=== PATIENT | male | born 1950 | race American Indian/Alaskan Native ===

== ENCOUNTER 2016-05-13 11:52 | Inpatient (IN) | payer OTHER ==
[2016-05-13 12:07] VITALS: BMI 18.8
[2016-05-13 12:38] LABS: ADD MANUAL DIFF? NO; BASO # 0.02 K/mm3 (0.0-2.0); BASO % 0.2 % (0.0-3.0); EOS % 0.3 % (1.5-5.0); GRAN # 6.68 (1.4-6.5); GRAN % 74.9 % (50.0-68.0); LYMPH # 1.2 (1.2-3.4); LYMPH % 13.7 % (22.0-35.0); MEAN CELL VOLUME 80.8 fL (80.0-105.0); MEAN CORPUSCULAR HEMOGLOBIN 27.3 pg (25.0-35.0); MEAN CORPUSCULAR HGB CONC 33.7 g/dl (31.0-37.0); MONO % 10.9 % (1.0-6.0); PLATELET COUNT 156 10^3/uL (120.0-450.0); RED CELL DISTRIBUTION WIDTH 14.9 % (11.5-14.5); WHITE BLOOD COUNT 8.9 10^3/ul (4.5-11.0)
[2016-05-13 12:44] LABS: INR 1.14 (0.93-1.08); PARTIAL THROMBOPLASTIN TIME 30.5 Seconds (23.7-30.8)
[2016-05-13 12:47] LABS: ALB/GLOB RATIO 0.8 (1.1-1.8); ALKALINE PHOSPHATASE 120 U/L (38-133); ALT/SGPT 22 U/L (7-56); AST/SGOT 48 U/L (15-59); BILIRUBIN,TOTAL 1.7 mg/dL (0.2-1.3); BLOOD UREA NITROGEN 12 mg/dL (7-21); CARBON DIOXIDE 30 mmol/L (21-33); CHLORIDE 99 mmol/L (98-107); GFR AFRICAN-AMERICAN > 60; GLUCOSE,RANDOM 134 mg/dL (70-110); POTASSIUM 3.9 mmol/L (3.6-5.0); SODIUM 143 mmol/L (132-148); TOTAL PROTEIN 9.3 g/dL (5.8-8.3)
[2016-05-13 13:00] LABS: TROPONIN I < 0.01 ng/mL
--- NOTE | 2016-05-13 13:14 | ED PDOC ---
Arrival/HPI <Tre Bazan Jr. - Last Filed: 05/13/16 17:58> - General Historian: Patient EM Caveat: Other (hx of CVA with poor speech ) - History of Present Illness Time/Duration: 4-6 hours Quality: Dullness <Eduardo Perry - Last Filed: 05/13/16 18:46> - General Time Seen by Provider: 05/13/16 12:07 - History of Present Illness Narrative History of Present Illness (Text): 05/13/16 12:56 65 y/o male with hx CVA in 2001, HTN presenting with complaints of chest pain which started suddenly at 330am last night waking him from sleep. Chest pain is left sided and described as heaviness. Pain is intermittent and without radiation or associated shortness of breath, diaphoresis or n/v/d. The patient has no prior history of coronary disease. He is currently hypertensive with BP > 200/90. He states he is compliant with his blood pressure medications and took them this morning. History is limited due to speech deficits secondary to patient's hx CVA. (Eduardo Perry) Past Medical History - Provider Review Nursing Documentation Reviewed: Yes - Cardiac Hx Cardiac Disorders: Yes Hx Hypertension: Yes - Pulmonary Hx Respiratory Disorders: No - Neurological Hx Neurological Disorder: No - HEENT Hx HEENT Disorder: No - Renal Hx Renal Disorder: No - Endocrine/Metabolic Hx Endocrine Disorders: No - Hematological/Oncological Hx Blood Disorders: No - Integumentary Hx Dermatological Disorder: No - Musculoskeletal/Rheumatological Hx Musculoskeletal Disorders: No - Gastrointestinal Hx Gastrointestinal Disorders: No - Genitourinary/Gynecological Hx Genitourinary Disorders: No - Psychiatric Hx Psychophysiologic Disorder: Yes Hx Depression: Yes Hx Substance Use: No - Surgical History Hx Abdominal Aortic Aneurysm Repair: No <Eduardo Perry - Last Filed: 05/13/16 18:46> Family/Social History - Physician Review Nursing Documentation Reviewed: Yes Family/Social History: Unknown Family HX Smoking Status: Unknown If Ever Smoked Hx Alcohol Use: No Hx Substance Use: No <Eduardo Perry - Last Filed: 05/13/16 18:46> Allergies/Home Meds <Tre Bazan Jr. - Last Filed: 05/13/16 17:58> <Eduardo Perry - Last Filed: 05/13/16 18:46> Allergies/Adverse Reactions: Allergies No Known Allergies Allergy (Verified 05/13/16 12:19) Home Medications: Home Meds Medication Instructions Recorded Confirmed Unobtainable 05/13/16 05/13/16 Review of Systems - Physician Review All systems were reviewed & negative as marked: Yes - Review of Systems Constitutional: Normal Eyes: Normal ENT: Normal Respiratory: absent: SOB, Cough, Sputum, Wheezing Cardiovascular: Chest Pain. absent: Palpitations, Calf Pain, Syncope Gastrointestinal: absent: Abdominal Pain, Diarrhea, Nausea, Vomiting Genitourinary Male: absent: Dysuria, Frequency, Hematuria Musculoskeletal: absent: Back Pain, Neck Pain Skin: absent: Rash, Pruritis, Skin Lesions Neurological: Focal Weakness (chronic ). absent: Headache, Dizziness Psychiatric: absent: Anxiety, Depression <Eduardo Perry - Last Filed: 05/13/16 18:46> Physical Exam Vital Signs Reviewed: Yes Temperature: Afebrile Blood Pressure: Hypertensive Pulse: Tachycardic Respiratory Rate: Normal Appearance: Positive for: Well-Appearing Pain Distress: None Mental Status: Positive for: Alert and Oriented X 3 - Systems Exam Head: Present: Atraumatic, Normocephalic Pupils: Present: PERRL Extroacular Muscles: Present: EOMI Conjunctiva: Present: Normal Mouth: Present: Moist Mucous Membranes Neck: Present: Normal Range of Motion Respiratory/Chest: Present: Clear to Auscultation, Good Air Exchange. No: Respiratory Distress Cardiovascular: Present: Normal S1, S2, Tachycardic Abdomen: Present: Normal Bowel Sounds. No: Tenderness, Distention Lower Extremity: Present: Normal Inspection, NORMAL PULSES. No: Edema, CALF TENDERNESS Neurological: Present: GCS=15, CN II-XII Intact, Speech Normal Skin: Present: Warm, Dry, Normal Color. No: Rashes Psychiatric: Present: Alert, Oriented x 3, Normal Insight, Normal Concentration <Eduardo Perry Last Filed: 05/13/16 18:46> Vital Signs Temp Pulse Resp BP Pulse Ox 05/13/16 16:41 91 H 18 140/89 96 05/13/16 15:53 99 H 18 142/94 H 95 05/13/16 13:09 105 H 18 148/105 H 95 05/13/16 12:06 98.2 F 110 H 18 205/123 H 95 Medical Decision Making - Lab Interpretations I have reviewed the lab results: Yes <Tre Bazan Jr. - Last Filed: 05/13/16 17:58> <Eduardo Perry - Last Filed: 05/13/16 18:46> ED Course and Treatment: ATTENDING PHYSICIAN FOCUSED HISTORY AND PHYSICAL EXAM NOTE: The patient is a 65 year old male who was seen and examined with the resident who comes into the emergency department for evaluation of chest pain. Additional HPI details as noted by the resident. On our exam, there are decreased breath sounds to right lung field. EKG, Chest X-ray and labs work ordered to rule out ACS. Patient give aspirin for pain. EKG shows Sinus tachycardia at 110 BPM. Chest X-ray shows right lower lobe infiltrate. (Tre Bazan Jr.) 05/13/16 13:30 66 y/o male with hx CVA in 2001, HTN presenting with chest pain. History is limited at this point due to patient's speech deficit coupled with the fact that there are no prior records of him here. Given his history of vascular disease evidenced by prior CVA patient is at increased risk for ACS. Patient was initially hypertensive on ED arrival however BP is now stable. EKG reveals NSR without evidence of ischemia. - CBC - CMP - cardiac iso - chest xray - EKG 05/13/16 14:58 Labs reviewed. D- Dimer is elevated. CTA chest ordered. Will review. 05/13/16 15:07 Multiple calls made person to notify in patient's chart. A message was left. Awaiting a call back. 05/13/16 17:18 CTA chest reviewed. There is no evidence of PE. Right lower lobe pneumonia verified. 05/13/16 18:[address] Whitman who is covering for Dr. Weaver. Dr. Whitman agrees to admit the patient for community acquired pneumonia. (Eduardo Perry) - Lab Interpretations Lab Results: 05/13/16 12:30 05/13/16 12:30 Lab Results 05/13/16 14:20: pO2 31, VBG pH 7.34, VBG pCO2 61.0 H, VBG HCO3 32.9 H, VBG Total CO2 34.8 H, VBG O2 Sat (Calc) 62.9, VBG Base Excess 5.2 H, VBG Potassium 3.6, Sodium 139.0, Chloride 104.0, Glucose 128 H, Lactate 1.3, FiO2 21.0, NT-Pro -B Natriuret Pep 1280 H, Venous Blood Potassium 3.6 05/13/16 13:42: D-Dimer, Quantitative 1.51 H 05/13/16 12:30: WBC 8.9, RBC 5.32, Hgb 14.5, Hct 43.0, MCV 80.8, MCH 27.3, MCHC 33.7, RDW 14.9 H, Plt Count 156, MPV 12.0 H, Gran % 74.9 H, Lymph % (Auto) 13.7 L, [place] % (Auto) 10.9 H, Eos % (Auto) 0.3 L, Baso % (Auto) 0.2, Gran # 6.68 H, Lymph # 1.2, [place] # 1.0 H, Eos # 0.0, Baso # 0.02, PT 12.3 H, INR 1.14 H, APTT 30.5, Sodium 143, Chloride 99, Potassium 3.9, Carbon Dioxide 30, Anion Gap 18, BUN 12, Creatinine 1.1, Est GFR ( Amer) > 60, Est GFR (Non-Af Amer) > 60 , Random Glucose 134 H, Calcium 10.0, Total Bilirubin 1.7 H, AST 48, ALT 22, Alkaline Phosphatase 120, Lactate Dehydrogenase 480, Total Creatine Kinase 59, Troponin I < 0.01, Total Protein 9.3 H, Albumin 4.2, Globulin 5.0, Albumin/ Globulin Ratio 0.8 L - RAD Interpretation Radiology Orders: 05/13/16 12:32 CHEST PORTABLE [RAD] Stat 05/13/16 14:56 ANGIO CHEST PE PROTOCOL [CT] Stat - Medication Orders Current Medication Orders: Sodium Chloride (Sodium Chloride 0.9%) 500 mls @ 100 mls/hr IV .Q5H [facility] Last Admin: 05/13/16 14:38 Dose: 100 MLS/HR eMAR Start Stop Document 05/13/16 14:38 EQ (Rec: 05/13/16 14:38 EQ [id number]) Intravenous Solution Start Date 05/13/16 Start Time 14:38 Discontinued Medications Aspirin (Aspirin) 325 mg PO STAT STA Stop: 05/13/16 13:58 Last Admin: 05/13/16 14:38 Dose: Azithromycin (Zithromax 500mg In Ns) 250 mls @ 167 mls/hr IVPB STAT STA PRN Reason: Protocol Stop: 05/13/16 15:30 Last Admin: 05/13/16 15:54 Dose: 167 MLS/HR eMAR Start Stop Document 05/13/16 15:54 EQ (Rec: 05/13/16 15:54 EQ [id number]) Intravenous Solution Start Date 05/13/16 Start Time 15:40 Ceftriaxone Sodium (Rocephin 1 Gram Ivpb) 100 mls @ 200 mls/hr IVPB STAT STA PRN Reason: Protocol Stop: 05/13/16 14:30 Last Admin: 05/13/16 14:38 Dose: 200 MLS/HR eMAR Start Stop Document 05/13/16 14:38 EQ (Rec: 05/13/16 14:38 EQ [id number]) Intravenous Solution Start Date 05/13/16 Start Time 14:38 Iodixanol (Visipaque 320 Mg/Ml 100 Ml) Confirm Administered Dose 100 ml IV .STK- MED ONE Stop: 05/13/16 15:12 - Scribe Statement The provider has reviewed the documentation as recorded by the Scribe <Tre Bazan Jr. - Last Filed: 05/13/16 17:58> <Eduardo Perry - Last Filed: 05/13/16 18:46> - Scribe Statement Sherrell Mahmood Provider Scribe Attestation: All medical record entries made by the Scribe were at my direction and personally dictated by me. I have reviewed the chart and agree that the record accurately reflects my personal performance of the history, physical exam, medical decision making, and the department course for this patient. I have also personally directed, reviewed, and agree with the discharge instructions and disposition. (Tre Bazan Jr.) Disposition/Present on Arrival - Present on Arrival Any Indicators Present on Arrival: No - Disposition Disposition Time: 17:58 Patient Plan: Admission <Tre Bazan Jr. - Last Filed: 05/13/16 17:58> - Present on Arrival Any Indicators Present on Arrival: No History of DVT/PE: No History of Uncontrolled Diabetes: No Urinary Catheter: No History of Decub. Ulcer: No History Surgical Site Infection Following: None - Disposition Have Diagnosis and Disposition been Completed?: Yes Patient Plan: Admission <Eduardo Perry - Last Filed: 05/13/16 18:46> - Disposition Diagnosis: Pneumonia, Chest pain Disposition: HOSPITALIZED Patient Problems: Current Active Problems Problem Status Diagnosed Pneumonia Acute Condition: STABLE Discharge Instructions (ExitCare): Chest Pain (ED)
--- NOTE | 2016-05-13 13:36 | RAD ---
HISTORY: chest pain COMPARISON: No prior. FINDINGS: LUNGS: Right basal consolidation/infiltrate present PLEURA: No significant pleural effusion identified, no pneumothorax apparent. CARDIOVASCULAR: Normal. OSSEOUS STRUCTURES: No significant abnormalities. VISUALIZED UPPER ABDOMEN: Normal. OTHER FINDINGS: None. IMPRESSION: Right lower lobe infiltrate
[2016-05-13] MEDS ORDERED: cefTRIAXone 1 gm 100 ML IVPB STA (14:01)
[2016-05-13] MEDS ORDERED: Azithromycin 500MG/NS 250ml 250 ML IVPB STA (14:01)
[2016-05-13 14:32] LABS: VENOUS BLOOD GAS BASE EXCESS 5.2 mmol/L (0.0-2.0); VENOUS BLOOD PH 7.34 (7.32-7.43)
[2016-05-13] MEDS: Sodium Chloride 0.9% 500 ML IV SCH ×2 (14:38→22:00)
[2016-05-13] MEDS ORDERED: Iodixanol 320 MG/ML 100 ML BOTTLE IV ONE (15:11)
--- NOTE | 2016-05-13 16:26 | CT ---
PROCEDURE: CT Chest with contrast (Pulmonary Angiogram) HISTORY: Chest pain, tachycardia r/o PE COMPARISON: None available. TECHNIQUE: Axial computed tomography images were obtained of the chest in the pulmonary arterial phase of enhancement. Coronal and sagittal reformatted images were created and reviewed. Intravenous contrast dose: 100 cc of Visipaque Radiation dose: Total exam DLP = 290 mGy-cm. FINDINGS: PULMONARY ARTERIES: Unremarkable. No pulmonary embolism. AORTA: No acute findings. No thoracic aortic aneurysm. LUNGS: There is a focal infiltrate at the right lung base consistent with pneumonia. PLEURAL SPACES: Unremarkable. No effusion or pneuomothorax. HEART: Unremarkable. No cardiomegaly. No significant pericardial effusion. LYMPH NODES: No lymphadenopathy. BONES, CHEST WALL: Unremarkable. No fracture or destructive lesion OTHER FINDINGS: Unremarkable. IMPRESSION: Right lower lobe pneumonia. No evidence of pulmonary embolus
--- NOTE | 2016-05-13 17:24 | CARD ---
APPROVED REPORT EKG Measurement Heart [id number] <Conclusion> Sinus tachycardia with premature supraventricular complexes Left axis deviation Nonspecific ST and T wave abnormality Abnormal ECG
[2016-05-13] MEDS ORDERED: Permethrin 5% Cream(60 gm) TOP ONE (22:26)
--- NOTE | 2016-05-13 22:54 | CP.PCM.PCO ---
Physician Communication Note - Physician Communication Note Physician Communication Note: chart reviewed. Rt LL pneumonia. hypertensive emerg. Lit
[2016-05-14] MEDS: Sodium Chloride 0.9% 500 ML IV SCH ×5 (02:23→20:00)
[2016-05-14] MEDS: Albuterol-Ipratrop 3 mg / 0.5 (3 ml) UD IH SCH ×4 (02:35→20:30)
[2016-05-14 07:05] LABS: ADD MANUAL DIFF? NO
[2016-05-14 07:08] LABS: BASO # 0.01 K/mm3 (0.0-2.0); BASO % 0.1 % (0.0-3.0); GRAN # 14.31 (1.4-6.5); GRAN % 78.5 % (50.0-68.0); HEMATOCRIT 38.4 % (42.0-52.0); LYMPH # 1.6 (1.2-3.4); LYMPH % 8.9 % (22.0-35.0); MEAN CELL VOLUME 79.2 fL (80.0-105.0); MEAN CORPUSCULAR HEMOGLOBIN 27.2 pg (25.0-35.0); MEAN CORPUSCULAR HGB CONC 34.4 g/dl (31.0-37.0); MEAN PLATELET VOLUME 11.4 fl (7.0-11.0); MONO # 2.3 (0.1-0.6); MONO % 12.5 % (1.0-6.0); PLATELET COUNT 125 10^3/uL (120.0-450.0); RED CELL DISTRIBUTION WIDTH 14.9 % (11.5-14.5); WHITE BLOOD COUNT 18.2 10^3/ul (4.5-11.0)
--- NOTE | 2016-05-14 07:23 | HP ---
CHIEF COMPLAINT: Shortness of breath, coughing. HISTORY OF PRESENT ILLNESS: The patient is a 65-year-old male with history of CVA in 2001, hypertension, hemiparalysis, came to the [facility] complaining about chest pain, started suddenly in the evening. Chest pain is in the left side and described as heaviness. Pain is intermittent and without radiation, associated with shortness of breath, diaphoresis. It is intermittent. The patient has no prior history of coronary artery disease, history of hypertension with blood pressure of 200/50. He states that he is compliant with blood pressure medications and took them in the morning. History is limited due to speech deficits secondary to history of cerebrovascular accident. seen patient in the Emergency Room, his friend was on the bedside. She helped me to get the history. PAST MEDICAL HISTORY: Hypertension, depression hemiparesis. FAMILY HISTORY: Father and mother noncontributory. HABITS: No smoking, no drugs, no ethanol. ALLERGIES: The patient is not allergic with any medication. HOME MEDICATIONS: Reviewed by me. REVIEW OF SYSTEMS: The patient seen and examined on the bedside. Still coughing, having shortness of breath, chest pain. No fever, no chills. No nausea, vomiting, or diarrhea. No hematuria or hematochezia. No headache, no dizziness. PHYSICAL EXAMINATION: VITAL SIGNS: Temperature 98.2, pulse 110, respiratory rate 18, blood pressure is 205/123 and repeat is 140/89. HEENT: Head normocephalic, atraumatic. Eyes: PERRLA. Extraocular muscles intact. Conjunctivae pink. Eyelids unremarkable. Nose patent. NECK: Supple. No carotid bruit, JVD or thyromegaly. CHEST: Bilaterally symmetrical. HEART: S1, S2 positive. LUNGS: Clear to auscultation. ABDOMEN: Soft. Bowel sounds present. No organomegaly. EXTREMITIES: No edema, no cyanosis. NEUROLOGIC: The patient is awake, alert, moving all 4 extremities. No focal deficits. LABORATORY DATA: White blood cells 8.9, hemoglobin 14.5, hematocrit 43.0, platelets 156. Sodium 143, potassium 3.9, BUN 12, creatinine 1.1, glucose 134. ASSESSMENT AND PLAN: The patient is a 65-year-old male with a history of cerebrovascular accident, hypertension, came with chest pain, shortness of breath, partial aphasia, hemiparalysis, acute coronary syndrome. The patient came with hypertension but was stabilized later on. The patient was given aspirin, Zithromax, ceftriaxone. The patient had pneumonia. Admitted. Antibiotics given. Pulmonary and cardiology consult called. Discussion was done with a friend on the bedside. Started on aspirin, Cymbalta for depression , baclofen, home medications, Pepcid for GI prophylaxis. Started on ceftriaxone and Zithromax, metoprolol, clonidine patch given. Repeat labs. Will follow up. Rosie Whitman MD cc: [id number] TT: 05/14/2016 07:22:33 jose armando GARCIA
[2016-05-14 07:25] LABS: ALB/GLOB RATIO 0.8 (1.1-1.8); ALKALINE PHOSPHATASE 104 U/L (38-133); ALT/SGPT 25 U/L (7-56); AST/SGOT 48 U/L (15-59); BILIRUBIN,TOTAL 1.6 mg/dL (0.2-1.3); BLOOD UREA NITROGEN 13 mg/dL (7-21); CALCIUM 9.4 mg/dL (8.4-10.5); CARBON DIOXIDE 30 mmol/L (21-33); CHLORIDE 101 mmol/L (98-107); CHOLESTEROL 114 mg/dL (130-200); GFR AFRICAN-AMERICAN > 60; GLUCOSE,RANDOM 93 mg/dL (70-110); POTASSIUM 4.1 mmol/L (3.6-5.0); SODIUM 141 mmol/L (132-148); TOTAL PROTEIN 8.1 g/dL (5.8-8.3)
[2016-05-14 07:36] LABS: TROPONIN I 0.04 ng/mL
[2016-05-14] MEDS: Cilostazol 100 mg Tab UD PO SCH ×2 (09:53→18:03)
[2016-05-14] MEDS: cefTRIAXone 1 gm 100 ML IVPB SCH (09:54)
[2016-05-14] MEDS: Aspirin 325 mg EC Tablets PO SCH (09:54)
[2016-05-14] MEDS: Azithromycin 500MG/NS 250ml 250 ML IVPB SCH (09:54)
[2016-05-14] MEDS ORDERED: Non Formulary Medication (Gabapentin [Neurontin] 800 MG) PO SCH (10:00)
[2016-05-14] MEDS ORDERED: Metoprolol Succinate 25 mg XL Tab PO SCH ×2 (10:00→20:42)
[2016-05-14] MEDS ORDERED: Non Formulary Medication (Simvastatin [Zocor] 40 MG) PO SCH (10:00)
--- NOTE | 2016-05-14 15:14 | CON ---
DATE: 05/14/2016 SERVICE: Cardiology. CONSULTING PHYSICIAN: Dr. Nilsa Hein. REASON FOR CONSULTATION: Shortness of breath, cough and chest pain on coughing. BRIEF CLINICAL HISTORY: A 65-year-old male with past medical history of CVA in the past 2001, hypert ension, right-sided hemiparesis, came to the Emergency Room with complaint of chest pain, off and on coughing. The patient describes it is left sided and it increases on coughing. It is intermittent. Sometimes, he is not coughing. PAST MEDICAL HISTORY: History of hypertension, depression, and CVA. SOCIAL HISTORY: Denies any smoking. Denies any history of alcohol abuse. FAMILY HISTORY: Noncontributory. ALLERGIES: No known drug allergy. CURRENT MEDICATIONS: The patient is taking baclofen, Neurontin, clonidine, simvastatin, cilostazol, aspirin, metoprolol and ____. REVIEW OF SYSTEMS: As per follows. PHYSICAL EXAMINATION: VITAL SIGNS: Temperature afebrile, heart rate 70, blood pressure 152/99. HEENT: PERRLA. Extraocular muscles intact. NECK: Supple. No carotid bruits. No thyromegaly. CHEST: Clear to auscultation. HEART: S1, S2 regular. ABDOMEN: Soft. EXTREMITIES: Clubbing and cyanosis negative. EKG showed sinus tachycardia with premature APCs, left axis deviation. Chest x-ray consistent with r ight lower lobe infiltrate. The patient's CT chest: Right lower lobe pneumonia. LABORATORY DATA: As follows: WBC 18, hemoglobin 13.8, hematocrit 38.4, platelet count 125. Applications Support Analyst ry shows sodium 140, potassium 4.0, chloride 101, carbon dioxide 30, anion gap of 14, BUN 13, creatin ine 1.0. IMPRESSION: Atypical chest pain, pneumonia, probably secondary to pneumonia, diabetes, hypertension, hyperlipidemia, cerebrovascular accident. RECOMMENDATION: Follow up CPK, troponin. So far, troponin is negative. We will put low dose beta b locker, CYRUS inhibitors. Echo to assess LV function. Follow up CPK, troponin. If CPK, troponin eloise in flat, we will consider a stress test in a couple of days when the pneumonia improves. If patient shows signs of [id number] myocardial infarction, we will proceed for cardiac catheterization, tho ug it is unlikely. Chest pain very atypical. Nilsa Hein MD cc: [id number] TT: 05/14/2016 15:14:11 Confirmation # [id number] Dictation # [id number]
[2016-05-14 16:35] LABS: TROPONIN I 0.03 ng/mL
[2016-05-14] MEDS: Enoxaparin 40 mg Syringe SC SCH (18:04)
--- NOTE | 2016-05-14 19:01 | CP.PCM.CON ---
History of Present Illness - History of Present Illness History of Present Illness: Infectious Disease Consultation: May 14, 2016 65 yo male with sudden episodes of chest pain last evening primarily in the left side with shortness of breath and diaphoresis. He describes chest heaviness. 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 Imaging studies did show a RLL pneumonia. In addition, there was a question of whether bed bugs were found on the patient, he is under isolation and has been washed. PMHx: Hypertension, depression, right sided hemiparesis, CVA history PSHx: None to my knowledge Allergies: NKDA Social Hx: No tobacco, EtOH, or illicit drug use. A resident of a boarding facility. Active Medications Albuterol/Ipratropium (Duoneb 3 Mg/0.5 Mg (3 Ml) Ud) 3 ml IH [id number] [facility] Last Admin: 05/14/16 13:35 Dose: 3 ml Aspirin (Ecotrin) 325 mg PO DAILY [facility] Last Admin: 05/14/16 09:54 Dose: 325 mg Atorvastatin Calcium (Lipitor) 20 mg PO DIN [facility] Last Admin: 05/14/16 18:04 Dose: 20 mg Baclofen (Lioresal) 10 mg PO BID [facility] Last Admin: 05/14/16 18:03 Dose: 10 mg Cilostazol (Pletal) 100 mg PO BID [facility] Last Admin: 05/14/16 18:03 Dose: 100 mg Clonidine HCl (Catapres-Tts3 0.3 Mg/24 Hr) 1 patch TD QWK [facility] Last Admin: 05/14/16 12:46 Dose: 1 patch Cyproheptadine HCl (Periactin) 4 mg PO DAILY [facility] Last Admin: 05/14/16 09:53 Dose: 4 mg Duloxetine HCl (Cymbalta) 30 mg PO DAILY [facility] Last Admin: 05/14/16 09:54 Dose: 30 mg Enoxaparin Sodium (Lovenox) 40 mg SC DAILY [facility] PRN Reason: Protocol Last Admin: 05/14/16 18:04 Dose: 40 mg Famotidine (Pepcid) 40 mg PO HS [facility] Last Admin: 05/13/16 23:58 Dose: 40 mg Gabapentin (Neurontin) 800 mg PO TID [facility] Last Admin: 05/14/16 18:04 Dose: 800 mg Sodium Chloride (Sodium Chloride 0.9%) 500 mls @ 100 mls/hr IV .Q5H [facility] Last Admin: 05/14/16 18:05 Dose: 100 mls/hr Ceftriaxone Sodium (Rocephin 1 Gram Ivpb) 100 mls @ 100 mls/hr IVPB DAILY [facility] PRN Reason: Protocol Last Admin: 05/14/16 09:54 Dose: 100 mls/hr Azithromycin (Zithromax 500mg In Ns) 250 mls @ 250 mls/hr IVPB DAILY [facility] PRN Reason: Protocol Last Admin: 05/14/16 09:54 Dose: 250 mls/hr Lisinopril (Zestril) 10 mg PO DAILY [facility] Metoprolol Succinate (Toprol Xl) 25 mg PO DAILY [facility] Last Admin: 05/14/16 09:53 Dose: 25 mg Family Hx: None given ROS: No fevers, chills, nausea, vomiting, diarrhea, headaches, dizziness, abdominal pain, melena, hematuria, hematemesis, hematochezia, vision loss, hearing loss, loss of consciousness. Patient with chest pain, SOB, diaphoresis. Past Patient History - Past Social History Smoking Status: Unknown If Ever Smoked - CARDIAC Hx Cardiac Disorders: Yes Hx Hypercholesterolemia: Yes Hx Hypertension: Yes - PULMONARY Hx Respiratory Disorders: No - NEUROLOGICAL Hx Neurological Disorder: Yes HX Cerebrovascular Accident: Yes (R hemiplegia, dysarthria) - HEENT Hx HEENT Problems: No - RENAL Hx Chronic Kidney Disease: No - ENDOCRINE/METABOLIC Hx Endocrine Disorders: No - HEMATOLOGICAL/ONCOLOGICAL Hx Blood Disorders: No - INTEGUMENTARY Hx Dermatological Problems: No - MUSCULOSKELETAL/RHEUMATOLOGICAL Hx Musculoskeletal Disorders: No Hx Falls: Yes - GASTROINTESTINAL Hx Gastrointestinal Disorders: No - GENITOURINARY/GYNECOLOGICAL Hx Genitourinary Disorders: No - PSYCHIATRIC Hx Psychophysiologic Disorder: Yes Hx Depression: Yes - SURGICAL HISTORY Hx Surgeries: No (pt denies) Meds Allergies/Adverse Reactions: Allergies Allergy/AdvReac Type Severity Reaction Status Date / Time No Known Allergies Allergy Verified 05/13/16 12:19 - Medications Medications: Current Medications Albuterol/Ipratropium (Duoneb 3 Mg/0.5 Mg (3 Ml) Ud) 3 ml [id number] [facility] Last Admin: 05/14/16 13:35 Dose: 3 ml Aspirin (Ecotrin) 325 mg PO DAILY [facility] Last Admin: 05/14/16 09:54 Dose: 325 mg Atorvastatin Calcium (Lipitor) 20 mg PO DIN [facility] Last Admin: 05/14/16 18:04 Dose: 20 mg Baclofen (Lioresal) 10 mg PO BID [facility] Last Admin: 05/14/16 18:03 Dose: 10 mg Cilostazol (Pletal) 100 mg PO BID [facility] Last Admin: 05/14/16 18:03 Dose: 100 mg Clonidine HCl (Catapres-Tts3 0.3 Mg/24 Hr) 1 patch TD QWK [facility] Last Admin: 05/14/16 12:46 Dose: 1 patch Cyproheptadine HCl (Periactin) 4 mg PO DAILY [facility] Last Admin: 05/14/16 09:53 Dose: 4 mg Duloxetine HCl (Cymbalta) 30 mg PO DAILY [facility] Last Admin: 05/14/16 09:54 Dose: 30 mg Enoxaparin Sodium (Lovenox) 40 mg SC DAILY [facility] PRN Reason: Protocol Last Admin: 05/14/16 18:04 Dose: 40 mg Famotidine (Pepcid) 40 mg PO HS [facility] Last Admin: 05/13/16 23:58 Dose: 40 mg Gabapentin (Neurontin) 800 mg PO TID [facility] Last Admin: 05/14/16 18:04 Dose: 800 mg Sodium Chloride (Sodium Chloride 0.9%) 500 mls @ 100 mls/hr IV .Q5H [facility] Last Admin: 05/14/16 18:05 Dose: 100 mls/hr Ceftriaxone Sodium (Rocephin 1 Gram Ivpb) 100 mls @ 100 mls/hr IVPB DAILY [facility] PRN Reason: Protocol Last Admin: 05/14/16 09:54 Dose: 100 mls/hr Azithromycin (Zithromax 500mg In Ns) 250 mls @ 250 mls/hr IVPB DAILY [facility] PRN Reason: Protocol Last Admin: 05/14/16 09:54 Dose: 250 mls/hr Lisinopril (Zestril) 10 mg PO DAILY [facility] Metoprolol Succinate (Toprol Xl) 25 mg PO DAILY [facility] Last Admin: 05/14/16 09:53 Dose: 25 mg Physical Exam - Constitutional Appears: Non-toxic, No Acute Distress, Chronically Ill - Head Exam Head Exam: ATRAUMATIC, NORMOCEPHALIC - Eye Exam Eye Exam: EOMI, PERRL Pupil Exam: NORMAL ACCOMODATION, PERRL - ENT Exam ENT Exam: Mucous Membranes Moist, Normal External Ear Exam, TM's Normal Bilaterally - Neck Exam Neck exam: Positive for: Full Rom, Normal Inspection - Respiratory Exam Respiratory Exam: Decreased Breath Sounds, NORMAL BREATHING PATTERN. absent: Rales, Rhonchi, Wheezes Additional comments: moderately decreased in RLL area. - Cardiovascular Exam Cardiovascular Exam: REGULAR RHYTHM, RRR, +S1, +S2 - GI/Abdominal Exam GI & Abdominal Exam: Normal Bowel Sounds, Soft. absent: Distended, Tenderness - Extremities Exam Additional comments: right sided paralysis. - Neurological Exam Neurological exam: Alert, CN II-XII Intact, Oriented x3 Additional comments: right sided paralysis. - Psychiatric Exam Psychiatric exam: Normal Affect, Normal Mood - Skin Skin Exam: Intact, Normal Color Results - Vital Signs Recent Vital Signs: Last Vital Signs Temp 98.9 F 05/14/16 17:49 Pulse 119 H 05/14/16 17:49 Resp 20 05/14/16 17:49 BP 169/98 H 05/14/16 17:49 Pulse Ox 96 05/14/16 06:00 - Labs Result Diagrams: 05/14/16 07:00 05/14/16 07:00 Labs: Laboratory Results - last 24 hr 05/14/16 05/14/16 07:00 16:11 WBC 18.2 H D RBC 4.85 Hgb 13.2 L Hct 38.4 L MCV 79.2 L MCH 27.2 MCHC 34.4 RDW 14.9 H Plt Count 125 MPV 11.4 H Gran % 78.5 H Lymph % (Auto) 8.9 L [place] % (Auto) 12.5 H Eos % (Auto) 0.0 L Baso % (Auto) 0.1 Gran # 14.31 H Lymph # 1.6 [place] # 2.3 H Eos # 0.0 Baso # 0.01 Sodium 141 Potassium 4.1 Chloride 101 Carbon Dioxide 30 Anion Gap 14 BUN 13 Creatinine 1.0 Est GFR ( Amer) > 60 Est GFR (Non-Af Amer) > 60 Random Glucose 93 Hemoglobin A1c 5.8 Calcium 9.4 Total Bilirubin 1.6 H AST 48 ALT 25 Alkaline Phosphatase 104 Lactate Dehydrogenase 415 358 Total Creatine Kinase 57 53 Troponin I 0.04 D 0.03 D Total Protein 8.1 Albumin 3.6 Globulin 4.4 Albumin/Globulin Ratio 0.8 L Triglycerides 58 Cholesterol 114 L LDL Cholesterol Direct 32 HDL Cholesterol 49 TSH 3rd Generation 0.89 Assessment & Plan - Assessment and Plan (Free Text) Assessment: 65 yo male with extensive past medical history that includes hypertension, depression, CVA history with residuals of speech impediment and right sided hemiparesis, presenting with chest pain and imaging studies showing a RLL pneumonia. Patient has been started on Rocephin and Azithromycin for antibiotics treatment at this time. Supportive care. Will need repeat Chest X- ray in the next 24-48 hours for further evaluation. Wells cultures have been sent. There is a moderate leukocytosis noted today. Supportive care. The patient is otherwise awake and alert and performs functions well with his left side. Thank you for allowing me to participate in the care of the patient, we will follow with you.
[2016-05-14] MEDS: Metoprolol Succinate 25 mg XL Tab PO SCH (21:10)
--- NOTE | 2016-05-14 21:17 | PN ---
DATE: 05/14/2016 SUBJECTIVE: The patient was seen and examined on the bedside, looks comfortable. No big change in t he status. No nausea, vomiting, or diarrhea. No hematuria or hematochezia. No swelling of the legs . The patient is a poor historian. PHYSICAL EXAMINATION: VITAL SIGNS: Temperature 98.9, pulse 119, blood pressure 169/68, respiratory rate 20. HEENT: Head normocephalic, atraumatic. Eyes: PERRLA. Extraocular movements intact. Conjunctivae p ink. Eyelids unremarkable. Nose patent. Mucous membranes moist. NECK: Supple. No carotid bruit, JVD or thyromegaly. CHEST: Bilaterally symmetrical. HEART: S1, S2 positive. LUNGS: Clear to auscultation. ABDOMEN: Soft. Bowel sounds present. No organomegaly. EXTREMITIES: No edema, no cyanosis. NEUROLOGIC: The patient is awake, alert, moving all 4 extremities. No focal deficits. MEDICATIONS: Catapres, Cymbalta, DuoNeb, Ecotrin, baclofen, Lipitor, Lovenox, Neurontin, Pepcid, Cip ro, Pletal, Rocephin, NS, metoprolol, Zestril, azithromycin. LABORATORY DATA: White blood cells 18.2, hemoglobin 13.4, hematocrit 38.4, platelets 125. Sodium 14 1, potassium 4.1, BUN 30, creatinine 1.0. Hemoglobin 5.8, bilirubin 1.6. BNP 1280. ASSESSMENT AND PLAN: The patient is a 65-year-old male with leukocytosis, anemia, abnormal liver fun ction test, congestive heart failure, seen by infectious disease, Dr. Akbar. The patient has hypertensi on, depression, right-sided hemiparesis, history of cerebrovascular accident, came with chest pain an d imaging studies that show right lower lobe pneumonia. The patient has been started on Rocephin, az ithromycin, supportive care. We will repeat chest x-ray in the next 24 hours, and then 48 hours for further evaluation. Wells cultures have been sent. Results are pending. The patient has bed bugs, so he is put on contact isolation by the hospital. According to bridge welder, chest pain looks like at ypical, probably secondary to pneumonia, hypercholesterolemia. Follow up with CPK and troponin. Tro ponin is negative. The patient is on low dose of beta blockers, CYRUS inhibitors. Needs echo. Maybe patient needs stress test. That will be done after a couple of days when pneumonia is improved as pe r bridge welder. According to bridge welder, the patient shows signs of non-ST segment myocardial infa rction and maybe patient needs a cardiac catheterization, as per bridge welder. I appreciated Dr. Fox Akbar's communication report. Gastrointestinal and deep venous thrombosis prophylaxis. Repeat lab s. We will follow up. Rosie Whitman MD cc: [id number] TT: 05/14/2016 21:17:03 Confirmation # [id number] Dictation # [id number] [email or web address]
--- NOTE | 2016-05-14 22:43 | CON ---
DATE: 05/14/2016 REFERRING PHYSICIAN: Dr. Whitman. REASON FOR CONSULT: Cough, shortness of breath, pneumonia. HISTORY OF PRESENT ILLNESS: This is a 65-year-old gentleman with past medical history significant fo r stroke, hypertension, depression, right hemiparesis, brought into Emergency Room with chest pain an d shortness of breath. At the arrival, his blood pressure was 200/50. He is seen by cardiology; had a CT scan of the chest done which shows pneumonia, no pulmonary embolism. There is no hemoptysis, n o hematemesis, no hematuria, no diarrhea reported. PAST MEDICAL HISTORY: Hypertension, CVA with right hemiparesis, depression. SOCIAL HISTORY: Denied any smoking or alcohol use. FAMILY HISTORY: No significant cardiopulmonary disease reported. ALLERGIES: None known. MEDICATIONS: He is on clonidine 0.3 mg weekly, Cymbalta 30 mg daily, DuoNeb q. 6 hours, Ecotrin at 3 25 mg daily, baclofen 10 mg twice a day, Lipitor 20 mg daily, Lovenox 40 mg daily, Neurontin 800 mg 3 times a day, Periactin 4 mg daily, Pletal 100 mg twice a day, Rocephin 1 g daily, IV fluid normal sa line 100 mL per hour, Toprol-XL 25 mg twice a day, Zestril 10 mg daily, Zithromax 500 mg daily. REVIEW OF SYSTEMS: No headache, no rhinitis. Has some cough, shortness of breath, and muscular-type chest pain. No nausea, no vomiting, no diarrhea, leg pain, or leg swelling. No dysuria. Admits to have snoring, daytime sleepy and tired. PHYSICAL EXAMINATION: Lying in the bed in no acute distress. Temp is 98, heart rate is 119, respiratory rate is 20, blood pressure 169/98, pulse ox 96% on room ai r. HENT: Moist mucous membrane. No ulcer or thrush noted. NECK: Supple. No JVD. Has a crowded airway. LUNGS: Scattered rhonchi and few wheezing. HEART: S1 and S2. ABDOMEN: Soft, nontender. No organomegaly. EXTREMITIES: There is no edema. NEUROLOGICALLY: Awake, alert. Follows simple commands. LABORATORY DATA: Shows sodium 141, potassium 4.1, chloride 104, bicarbonate 30, BUN 13, creatinine 1 .0, glucose 93. Hemoglobin A1c 5.8. Calcium is 9.4. AST 48, ALT 25, alk phos is 104, LDH 415, trop onin 0.84. ProBNP 1280, albumin is 3.6, cholesterol is 114. TSH is 0.89. Microbiology: Blood cult ures have been negative. CAT scan of the chest done in the ER shows right lower lobe pneumonia. No evidence of pulmonary embo lism. IMPRESSION AND PLAN: Community-acquired pneumonia, hypertension, history of cerebrovascular accident , depression, may have a component of sleep apnea syndrome, rule out oropharyngeal dysphagia. I agree with Dr. Whitman with the present management. Continue antibiotics, inhaled bronchodilators. Will get speech therapy to evaluate the patient. Sleep apnea precaution. Avoid sedation. Cardiac workup. Thank you, and will follow with you. Nilsa Cabrera MD cc: [id number] TT: 05/14/2016 22:43:30 Confirmation # [id number] Dictation # [id number] jn
[2016-05-15] MEDS ORDERED: Metoprolol 1 mg/ml Inj IVP ONE ×2 (01:32→01:33)
[2016-05-15] MEDS: Albuterol-Ipratrop 3 mg / 0.5 (3 ml) UD IH SCH ×4 (01:55→19:44)
--- NOTE | 2016-05-15 06:25 | CP.PCM.PN ---
Subjective - Date & Time of Evaluation Date of Evaluation: 05/15/16 Time of Evaluation: 03:00 - Subjective Subjective: Patient has been having recurrent episodes of tachycardia hr going upto 170. Upon eval of the patient he has been asymptomatic, does not even realize his heart is racing, maintained BP and denies sob. Patient did have temp of 101F, and has been admitted with pna, chest pain, uncontrolled BP, and h/o prior cva. The rhythm had been regular, narrow complex without P waves clinically representing SVT, when HR was 170 metoprolol given 5mg iv brought it in range of 140-150, no response with 6mg adenosine, sight initial response with 12mg adenosine with ultimately changed to sinus tachy with intermittent back and forth conversion. Verapamin 2.5mg reduced the reduced duration of svt, then another dose of verapamil 2.5 kept sinus for longer time and few brief svts. Labs w/o sent including troponin, tsh, lytes, fever controlled, verapamil added orally, echo will be ordered. 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 Objective - Vital Signs/Intake and Output Vital Signs (last 24 hours): Temp Pulse Resp BP Pulse Ox 99 F 112 H 21 139/91 H 95 05/15/16 05:42 05/15/16 05:42 05/15/16 05:42 05/15/16 05:42 05/15/16 05:42 Intake and Output: 05/14/16 05/15/16 18:59 06:59 Intake Total 1560 Output Total 150 Balance 1410 - Medications Medications: Current Medications Albuterol/Ipratropium (Duoneb 3 Mg/0.5 Mg (3 Ml) Ud) 3 ml IH [id number] [facility] Last Admin: 05/15/16 01:55 Dose: Not Given Aspirin (Ecotrin) 325 mg PO DAILY [facility] Last Admin: 05/14/16 09:54 Dose: 325 mg Atorvastatin Calcium (Lipitor) 20 mg PO DIN [facility] Last Admin: 05/14/16 18:04 Dose: 20 mg Baclofen (Lioresal) 10 mg PO BID [facility] Last Admin: 05/14/16 18:03 Dose: 10 mg Cilostazol (Pletal) 100 mg PO BID [facility] Last Admin: 05/14/16 18:03 Dose: 100 mg Clonidine HCl (Catapres-Tts3 0.3 Mg/24 Hr) 1 patch TD QWK [facility] Last Admin: 05/14/16 12:46 Dose: 1 patch Cyproheptadine HCl (Periactin) 4 mg PO DAILY [facility] Last Admin: 05/14/16 09:53 Dose: 4 mg Duloxetine HCl (Cymbalta) 30 mg PO DAILY [facility] Last Admin: 05/14/16 09:54 Dose: 30 mg Enoxaparin Sodium (Lovenox) 40 mg SC DAILY [facility] PRN Reason: Protocol Last Admin: 05/14/16 18:04 Dose: 40 mg Famotidine (Pepcid) 40 mg PO HS [facility] Last Admin: 05/14/16 21:09 Dose: 40 mg Gabapentin (Neurontin) 800 mg PO TID [facility] Last Admin: 05/14/16 18:04 Dose: 800 mg Sodium Chloride (Sodium Chloride 0.9%) 500 mls @ 100 mls/hr IV .Q5H [facility] Last Admin: 05/14/16 18:05 Dose: 100 mls/hr Ceftriaxone Sodium (Rocephin 1 Gram Ivpb) 100 mls @ 100 mls/hr IVPB DAILY [facility] PRN Reason: Protocol Last Admin: 05/14/16 09:54 Dose: 100 mls/hr Azithromycin (Zithromax 500mg In Ns) 250 mls @ 250 mls/hr IVPB DAILY [facility] PRN Reason: Protocol Last Admin: 05/14/16 09:54 Dose: 250 mls/hr Lisinopril (Zestril) 10 mg PO DAILY [facility] Metoprolol Succinate (Toprol Xl) 25 mg PO BID [facility] Last Admin: 05/14/16 21:10 Dose: 25 mg Verapamil HCl (Calan Tab) 40 mg PO TID [facility] - Labs Labs: 05/14/16 07:00 05/14/16 07:00 PT 12.3 Seconds (9.9-11.8) H 05/13/16 12:30 INR 1.14 (0.93-1.08) H 05/13/16 12:30 APTT 30.5 Seconds (23.7-30.8) 05/13/16 12:30
[2016-05-15] MEDS: Sodium Chloride 0.9% 500 ML IV SCH ×5 (06:49→23:32)
[2016-05-15 06:56] LABS: ALB/GLOB RATIO 0.8 (1.1-1.8); ALKALINE PHOSPHATASE 84 U/L (38-133); ALT/SGPT 25 U/L (7-56); AST/SGOT 35 U/L (15-59); BILIRUBIN,TOTAL 1.8 mg/dL (0.2-1.3); BLOOD UREA NITROGEN 14 mg/dL (7-21); CARBON DIOXIDE 26 mmol/L (21-33); CHLORIDE 106 mmol/L (98-107); CHOLESTEROL 106 mg/dL (130-200); GFR AFRICAN-AMERICAN > 60; GLUCOSE,RANDOM 84 mg/dL (70-110); MAGNESIUM 1.6 mg/dL (1.7-2.2); PHOSPHOROUS 2.9 mg/dL (2.5-4.5); POTASSIUM 3.4 mmol/L (3.6-5.0); SODIUM 140 mmol/L (132-148); TOTAL PROTEIN 7.2 g/dL (5.8-8.3)
[2016-05-15 07:03] LABS: TROPONIN I 0.04 ng/mL
[2016-05-15] MEDS ORDERED: Potassium Chloride 20 mEq ER Tab PO ONE ×2 (09:13→14:00)
[2016-05-15] MEDS ORDERED: Magnesium Sulfate 2 GM in Sodium Chloride 0.9% 100 ML IVPB ONE (09:13)
--- NOTE | 2016-05-15 09:33 | PN ---
DATE: 05/15/2016 REASON FOR CONSULTATION AND FOLLOWUP: Shortness of breath, cough, chest pain on coughing, last night went into SVT. BRIEF CLINICAL HISTORY: A 65-year-old male with a past medical history of CVA in the past, hypertens ion, right-sided hemiparesis. Admitted with a cough and uncontrolled hypertension. Admitting blood pressure in Emergency Room was 205/123. The patient complained of chest pain on admission. So far, troponin remains negative. No evidence of acute ischemia, though patient complained of chest pain on coughing. Yesterday, went into SVT, heart rate of 174 last night at 2 a.m. Now feels better. PHYSICAL EXAMINATION: VITAL SIGNS: Temperature afebrile, heart rate 115, blood pressure 146/90. HEENT: PERRLA. Extraocular muscles intact. NECK: Supple. No carotid bruits. No thyromegaly. CHEST: Clear to auscultation. HEART: S1, S2 regular. ABDOMEN: Soft. EXTREMITIES: Clubbing, cyanosis negative. BLOOD WORKUP: WBC 18.2, hemoglobin 13.2, hematocrit 38.4, platelet count 125. Chemistry shows sodiu m 140, potassium 3.4, chloride 106, carbon dioxide 26, anion gap of 11, BUN , creatinine 1.0, ma gnesium 1.6, bilirubin 1.8. IMPRESSION: Hypokalemia, hypomagnesemia, supraventricular tachycardia, no evidence of myocardial inf arction, troponin 0.04, 0.0.3, 0.04, pneumonia on the CAT scan as well as on chest x-ray, tachycardia , history of cerebrovascular accident, mild anemia, leukocytosis, history of cerebrovascular accident with right-sided paralysis. RECOMMENDATION: We will start verapamil, control both heart rate and blood pressure. So far, no valerie dence of acute myocardial infarction. Echo to assess left ventricular function. We will consider a stress test when the patient is stable. Still, patient is coughing up and probably by Wednesday, we sangeeta l do a stress Lexiscan to rule out any ischemia because of underlying comorbidity, history of cerebro vascular accident. Interim, continue aspirin, continue verapamil as mentioned, continue deep venous thrombosis prophylaxis, continue aggressive treatment of chronic obstructive pulmonary disease and we will follow with you. Thank you, Dr. Whitman, for providing us the opportunity in taking care of the patient. Continue enedelia nopril. We will follow with you. Continue low dose of beta kaden as well. We will follow with cassidy u. Nilsa Hein MD cc: [id number] TT: 05/15/2016 09:32:21 Confirmation # [id number] Dictation # [id number]
[2016-05-15] MEDS ORDERED: Verapamil 180 mg ER Tab PO SCH (10:00)
[2016-05-15] MEDS: Metoprolol Succinate 25 mg XL Tab PO SCH ×2 (10:14→17:32)
[2016-05-15] MEDS: Aspirin 325 mg EC Tablets PO SCH (10:15)
[2016-05-15] MEDS: Cilostazol 100 mg Tab UD PO SCH ×2 (10:16→17:32)
[2016-05-15] MEDS: Azithromycin 500MG/NS 250ml 250 ML IVPB SCH (10:16)
[2016-05-15] MEDS: Enoxaparin 40 mg Syringe SC SCH (10:17)
[2016-05-15] MEDS: cefTRIAXone 1 gm 100 ML IVPB SCH (13:06)
--- NOTE | 2016-05-15 14:24 | CARD ---
APPROVED REPORT EKG Measurement Heart [id number] <Conclusion> Supraventricular tachycardia/Probab Atrial Flutter 2:1 Ventricular Rate 174/minute. Left axis deviation Nonspecific T wave abnormality Abnormal ECG
--- NOTE | 2016-05-15 17:18 | CP.PCM.CON ---
History of Present Illness - History of Present Illness History of Present Illness: Infectious Disease Follow Up: May 15, 2016 65 yo male with sudden episodes of chest pain last evening primarily in the left side with shortness of breath and diaphoresis. He describes chest heaviness. 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 Imaging studies did show a RLL pneumonia. In addition, there was a question of whether bed bugs were found on the patient, he is under isolation and has been washed. RLL pneumonia may be worsened with the residual right sided hemiparesis. Noted fever last night of 101.5 F. Recheck CBC in AM. Past Patient History - Past Social History Smoking Status: Unknown If Ever Smoked - CARDIAC Hx Cardiac Disorders: Yes Hx Hypertension: Yes - PULMONARY Hx Respiratory Disorders: No - NEUROLOGICAL HX Cerebrovascular Accident: Yes - HEENT Hx HEENT Problems: No - RENAL Hx Chronic Kidney Disease: No - ENDOCRINE/METABOLIC Hx Endocrine Disorders: No - HEMATOLOGICAL/ONCOLOGICAL Hx Blood Disorders: No - INTEGUMENTARY Hx Dermatological Problems: No - MUSCULOSKELETAL/RHEUMATOLOGICAL Hx Musculoskeletal Disorders: No Hx Falls: Yes - GASTROINTESTINAL Hx Gastrointestinal Disorders: No - GENITOURINARY/GYNECOLOGICAL Hx Genitourinary Disorders: No - PSYCHIATRIC Hx Psychophysiologic Disorder: Yes Hx Depression: Yes - SURGICAL HISTORY Hx Surgeries: No (pt denies) Meds Allergies/Adverse Reactions: Allergies Allergy/AdvReac Type Severity Reaction Status Date / Time No Known Allergies Allergy Verified 05/13/16 12:19 - Medications Medications: Current Medications Albuterol/Ipratropium (Duoneb 3 Mg/0.5 Mg (3 Ml) Ud) 3 ml IH [id number] [facility] Last Admin: 05/15/16 13:35 Dose: 3 ml Aspirin (Ecotrin) 325 mg PO DAILY [facility] Last Admin: 05/15/16 10:15 Dose: 325 mg Atorvastatin Calcium (Lipitor) 20 mg PO DIN [facility] Last Admin: 05/14/16 18:04 Dose: 20 mg Baclofen (Lioresal) 10 mg PO BID [facility] Last Admin: 05/15/16 10:15 Dose: 10 mg Cilostazol (Pletal) 100 mg PO BID [facility] Last Admin: 05/15/16 10:16 Dose: 100 mg Clonidine HCl (Catapres-Tts3 0.3 Mg/24 Hr) 1 patch TD QWK [facility] Last Admin: 05/14/16 12:46 Dose: 1 patch Cyproheptadine HCl (Periactin) 4 mg PO DAILY [facility] Last Admin: 05/15/16 10:15 Dose: 4 mg Duloxetine HCl (Cymbalta) 30 mg PO DAILY [facility] Last Admin: 05/15/16 10:15 Dose: 30 mg Enoxaparin Sodium (Lovenox) 40 mg SC DAILY [facility] PRN Reason: Protocol Last Admin: 05/15/16 10:17 Dose: 40 mg Famotidine (Pepcid) 40 mg PO HS [facility] Last Admin: 05/14/16 21:09 Dose: 40 mg Gabapentin (Neurontin) 800 mg PO TID [facility] Last Admin: 05/15/16 13:04 Dose: 800 mg Sodium Chloride (Sodium Chloride 0.9%) 500 mls @ 100 mls/hr IV .Q5H [facility] Last Admin: 05/15/16 10:38 Dose: 100 mls/hr Ceftriaxone Sodium (Rocephin 1 Gram Ivpb) 100 mls @ 100 mls/hr IVPB DAILY [facility] PRN Reason: Protocol Last Admin: 05/15/16 13:06 Dose: 100 mls/hr Azithromycin (Zithromax 500mg In Ns) 250 mls @ 250 mls/hr IVPB DAILY [facility] PRN Reason: Protocol Last Admin: 05/15/16 10:16 Dose: 250 mls/hr Lisinopril (Zestril) 10 mg PO DAILY [facility] Last Admin: 05/15/16 10:15 Dose: 10 mg Metoprolol Succinate (Toprol Xl) 25 mg PO BID [facility] Last Admin: 05/15/16 10:14 Dose: 25 mg Verapamil HCl (Calan Sr Tab) 180 mg PO DAILY [facility] Last Admin: 05/15/16 10:29 Dose: 180 mg Verapamil HCl (Verapamil Inj) 2.5 mg IVP Q6H PRN PRN Reason: for Heart Rate >130 Physical Exam - Constitutional Appears: Non-toxic, In Acute Distress, Chronically Ill - Head Exam Head Exam: ATRAUMATIC, NORMOCEPHALIC - Eye Exam Eye Exam: EOMI, PERRL Pupil Exam: NORMAL ACCOMODATION, PERRL - ENT Exam ENT Exam: Mucous Membranes Moist, Normal External Ear Exam, TM's Normal Bilaterally - Neck Exam Neck exam: Positive for: Full Rom, Normal Inspection - Respiratory Exam Respiratory Exam: Decreased Breath Sounds, Rhonchi, NORMAL BREATHING PATTERN. absent: Rales, Wheezes Additional comments: moderately decreased in RLL area. - Cardiovascular Exam Cardiovascular Exam: Tachycardia, +S1, +S2 Additional comments: periods of Atrial flutter. - GI/Abdominal Exam GI & Abdominal Exam: Normal Bowel Sounds, Soft. absent: Distended, Tenderness - Extremities Exam Additional comments: right sided paralysis. - Neurological Exam Neurological exam: Alert, CN II-XII Intact, Oriented x3 Additional comments: right sided paralysis. - Psychiatric Exam Psychiatric exam: Normal Affect, Normal Mood - Skin Skin Exam: Intact, Normal Color Results - Vital Signs Recent Vital Signs: Last Vital Signs Temp 99 F 05/15/16 16:51 Pulse 113 H 05/15/16 16:51 Resp 18 05/15/16 16:51 BP 149/108 H 05/15/16 16:51 Pulse Ox 95 05/15/16 05:42 - Labs Result Diagrams: 05/14/16 07:00 05/15/16 05:30 Labs: Laboratory Results - last 24 hr 05/14/16 05/15/16 21:15 05:30 Sodium 140 Potassium 3.4 L Chloride 106 Carbon Dioxide 26 Anion Gap 11 BUN 14 Creatinine 1.0 Est GFR ( Amer) > 60 Est GFR (Non-Af Amer) > 60 Random Glucose 84 Hemoglobin A1c 5.7 Calcium 9.0 Phosphorus 2.9 Magnesium 1.6 L Total Bilirubin 1.8 H AST 35 ALT 25 Alkaline Phosphatase 84 Lactate Dehydrogenase 367 Total Creatine Kinase 43 Troponin I 0.04 D Total Protein 7.2 Albumin 3.1 Globulin 4.1 Albumin/Globulin Ratio 0.8 L Triglycerides 58 Cholesterol 106 L LDL Cholesterol Direct 33 HDL Cholesterol 43 TSH 3rd Generation 1.80 Influenza Typ A,B (EIA) Negative for flu a/b Assessment & Plan - Assessment and Plan (Free Text) Assessment: 65 yo male with extensive past medical history that includes hypertension, depression, CVA history with residuals of speech impediment and right sided hemiparesis, presenting with chest pain and imaging studies showing a RLL pneumonia. Patient has been started on Rocephin and Azithromycin for antibiotics treatment at this time. Supportive care. Will need repeat Chest X- ray in the next 24-48 hours for further evaluation. Wells cultures have been sent. There is a moderate leukocytosis noted today. Supportive care. The patient is otherwise awake and alert and performs functions well with his left side. Recheck CBC. Repeat cultures if he is febrile again. His initial cultures are negative at 48 hours. Thank you for allowing me to participate in the care of the patient, we will follow with you.
--- NOTE | 2016-05-15 18:11 | PN ---
DATE: 05/15/2016 REFERRING PHYSICIAN: Dr. Whitman SUBJECTIVE: He is lying in the bed, head at 45 degree, having dinner. Night was unremarkable. Coug h and shortness of breath is better. No nausea, no vomiting, diarrhea, leg pain or leg swelling. Pro s a dysphagia evaluation done today. OBJECTIVE: GENERAL: No acute distress. VITAL SIGNS: Temp is 99, heart rate is 113, respiratory rate is 20, blood pressure 149/108, pulse ox 95% on 2 liters nasal cannula. HEENT: Moist mucous membrane. Crowded airway. NECK: Supple. No JVD. LUNGS: Has scattered rhonchi and few crackles at the right base. HEART: S1 and S2. ABDOMEN: Soft, nontender. No organomegaly. EXTREMITIES: There is no edema. NEUROLOGIC: Awake, alert, follows simple command. MEDICATIONS: He is on Calan SR started today 180 mg daily, Catapres 0.3 mg weekly, Cymbalta 30 mg [place], DuoNeb q.6 hours, Ecotrin at 325 mg daily, baclofen 10 mg twice a day, Lipitor 20 mg daily, Love nox 40 mg daily, Neurontin 800 mg 3 times a day, Pepcid 40 mg at bedtime, Periactin 4 mg daily, Pleta l 100 mg twice a day, Rocephin 1 gram daily, IV fluid normal saline 100 mL per hour, Toprol-XL 25 mg daily, p.r.n. verapamil, Zestril 10 mg daily, Zithromax 500 mg daily. LABORATORY DATA: Reviewed and shows sodium 140, potassium 3.4, chloride 106, bicarbonate 26, BUN 14, creatinine 1.0, glucose 84. Hemoglobin A1c 5.7, calcium 9.0, phosphorus 2.9, magnesium 1.6, total b jennifer 1.8, AST 35, ALT 25, alk phos is 84. Troponin is 0.04. Albumin is 3.1, cholesterol is 106. TSH is 1.80. Influenza A and B is negative. MICROBIOLOGY: Blood culture has been negative. Had echocardiogram done, report is pending. IMPRESSION AND PLAN: Community-acquired pneumonia, hypertension, history of cerebrovascular accident , depression, may have sleep apnea syndrome. Rule out oropharyngeal dysphagia, high risk for aspirat ion. Has a persistent tachycardia noted. He is on a beta-kaden and calcium channel kaden. Echo cardiogram is done, report is pending. Will get SMA-7 and proBNP in the morning. Gastric prophylaxi s. Sequential compression devices to lower extremities. Sleep apnea precaution. Avoid sedation. Thank you and we will follow with you. Nilsa Cabrera MD cc: [id number] TT: 05/15/2016 18:11:07 Confirmation # [id number] Dictation # [id number] sn
--- NOTE | 2016-05-15 19:20 | CARD ---
APPROVED REPORT EXAM: Two-dimensional and M-mode echocardiogram with Doppler and color Doppler. INDICATION Chest Pain 2D DIMENSIONS Left Atrium (2D)3.7 (1.6-4.0cm)IVSd1.4 (0.7-1.1cm) LVDd3.8 (3.9-5.9cm)PWd1.7 (0.7-1.1cm) LVDs2.8 (2.5-4.0cm)FS (%) 25.3 % LVEF (%)50.7 (>50%) M-Mode DIMENSIONS Aortic Root3.40 (2.2-3.7cm)Aortic Cusp Exc.2.00 (1.5-2.0cm) Aortic Valve AoV Peak Ayvomylr424.0cm/Cynthia Peak GR.12mmHg Mitral Valve MV E Cvwyaanl04.5cm/sMV A Qjalvoyl73.6cm/sE/A ratio0.7 TDI E/Lateral E'0.0E/Medial E'0.0 Tricuspid Valve TR Peak Ldgypanr882us/sRAP [id number] Peak Gr.28mmHg [id number] LEFT VENTRICLE The left ventricle is normal size. There is mild concentric left ventricular hypertrophy. The systolic function is low normal .EF-50% There is mild global hypokinesis of the left ventricle. Transmitral Doppler flow pattern is Grade III-reversible restrictive diastolic dysfunction. No left ventricle thrombus noted on this study. There is no ventricular septal defect visualized. There is no left ventricular aneurysm. There is no mass noted in the left ventricle. RIGHT VENTRICLE The right ventricle is normal size. There is normal right ventricular wall thickness. The right ventricular systolic function is normal. ATRIA The left atrium size is normal. The right atrium size is normal. The interatrial septum is intact with no evidence for an atrial septal defect. AORTIC VALVE The aortic valve is thickened but opens well. There is moderate to severe aortic regurgitation. There is no aortic valvular stenosis. There is no aortic valvular vegetation. MITRAL VALVE The mitral valve is thickened but opens well. Mitral regurgitation is mild. There is no mitral valve stenosis. There is no evidence of mitral valve prolapse. TRICUSPID VALVE The tricuspid valve leaflets are thickened , but open well. There is mild tricuspid regurgitation.RVSP-#8 mmof Hg. There is no tricuspid valve stenosis. PULMONIC VALVE The pulmonic valve is mildly to moderately thickened. There is trace to mild pulmonic valvular regurgitation. There is no pulmonic valvular stenosis. GREAT VESSELS The aortic root is normal in size. The ascending aorta is normal in size. The pulmonary artery is normal. The IVC is normal in size and collapses >50% with inspiration. PERICARDIAL EFFUSION There is small to moderate left pleural effusion. There is a small pericardial effusion. <Conclusion> Normal chamber Size. EF-50% There is moderate to severe aortic regurgitation. Mitral regurgitation is mild. There is mild tricuspid regurgitation.RVSP-#8 mmof Hg. There is a small pericardial effusion. There is small to moderate left pleural effusion. No Vegetation or thrombus noted.
--- NOTE | 2016-05-15 19:40 | PN ---
DATE: 05/15/2016 The patient is a 65-year-old male. The patient was seen and examined on the bedside, looks comfortable, having dinner. No fever, no chills. Still has dysphagia. No headache, no dizziness. No hematuria, no hematochezia. PHYSICAL EXAMINATION: VITAL SIGNS: Temperature 99, heart rate 80 , respiratory rate 20, blood pressure 149/108, pulse oximetry 95% on 2 liters nasal cannula. HEENT: Head normocephalic, atraumatic. Eyes: PERRLA. Extraocular muscles intact. Conjunctivae pink. Eyelids unremarkable. Nose patent. Mucous membranes moist. NECK: Supple. No carotid bruit, no JVD, no thyromegaly. CHEST: Bilaterally symmetrical. HEART: S1 and S2 positive. LUNGS: Clear to auscultation. ABDOMEN: Soft. Bowel sounds positive. No organomegaly. EXTREMITIES: No edema, no cyanosis. NEUROLOGIC: The patient is awake, alert, follows simple commands. MEDICATIONS: Calan, Catapres, Cymbalta, DuoNeb, Ecotrin, baclofen, Lipitor, Lovenox, Neurontin, Pepcid, Periactin, Pletal, Rocephin, Toprol, verapamil, Zestril, azithromycin. LABORATORIES: Sodium 140, potassium 3.4, BUN 14, creatinine 1.0, glucose 84. Hemoglobin A1c is 5.7. AST 35, AST 25. TSH noted , Influenza A and B is negative. ASSESSMENT AND PLAN: The patient is a 65-year-old male with community-acquired pneumonia, hypertension, history of cerebrovascular accident, depression, sleep apnea syndrome, oropharyngeal dysphagia, is on high risk of aspiration. Dysphagia evaluation done, results are pending. Persistent tachycardia noted. Beta kaden and calcium channel kaden were given. Echocardiography done, report is pending. Seen by the auditor supervisor. Gastric and deep venous prophylaxis, sequential compression devices for lower extremities. We will continue adenosine added by Dr. Hein. Aspirin, potassium, baclofen. The patient is getting Lipitor for hypercholesterolemia, Lovenox for deep venous thrombosis prophylaxis. The patient is getting Neurontin for pain, antibiotics. We will follow up. Rosie Whitman MD cc: [id number] TT: 05/15/2016 19:40:20 Confirmation # [id number] Dictation # [id number] MTDD
[2016-05-15 22:50] LABS: URINE BILIRUBIN NEGATIVE (NEGATIVE); URINE BLOOD NEGATIVE (NEGATIVE); URINE GLUCOSE (UA) NEGATIVE (NEGATIVE); URINE KETONE TRACE mg/dL (NEGATIVE); URINE LEUKOCYTE ESTERASE NEGATIVE Leu/uL (NEGATIVE)
[2016-05-15 22:59] LABS: URINE APPEARANCE CLEAR (CLEAR); URINE PROTEIN NEGATIVE mg/dL (<30 mg/dL)
[2016-05-16] MEDS: Albuterol-Ipratrop 3 mg / 0.5 (3 ml) UD IH SCH ×4 (01:34→20:30)
[2016-05-16] MEDS: Sodium Chloride 0.9% 500 ML IV SCH ×2 (02:00→07:55)
[2016-05-16 07:21] LABS: ADD MANUAL DIFF? NO
[2016-05-16 07:27] LABS: BASO # 0.02 K/mm3 (0.0-2.0); BASO % 0.3 % (0.0-3.0); EOS # 0.2 (0.0-0.7); EOS % 2.4 % (1.5-5.0); GRAN # 4.43 (1.4-6.5); GRAN % 65.6 % (50.0-68.0); HEMATOCRIT 33.3 % (42.0-52.0); LYMPH # 1.3 (1.2-3.4); LYMPH % 19.6 % (22.0-35.0); MEAN CELL VOLUME 79.5 fL (80.0-105.0); MEAN CORPUSCULAR HEMOGLOBIN 26.3 pg (25.0-35.0); MEAN PLATELET VOLUME 11.4 fl (7.0-11.0); MONO # 0.8 (0.1-0.6); MONO % 12.1 % (1.0-6.0); PLATELET COUNT 118 10^3/uL (120.0-450.0); RED CELL DISTRIBUTION WIDTH 15.2 % (11.5-14.5); WHITE BLOOD COUNT 6.8 10^3/ul (4.5-11.0)
[2016-05-16 07:39] LABS: ALB/GLOB RATIO 0.7 (1.1-1.8); ALKALINE PHOSPHATASE 72 U/L (38-133); ALT/SGPT 30 U/L (7-56); AST/SGOT 37 U/L (15-59); BILIRUBIN,TOTAL 1.2 mg/dL (0.2-1.3); BLOOD UREA NITROGEN 15 mg/dL (7-21); CALCIUM 8.6 mg/dL (8.4-10.5); CARBON DIOXIDE 23 mmol/L (21-33); CHLORIDE 111 mmol/L (98-107); GFR AFRICAN-AMERICAN > 60; GLUCOSE,RANDOM 87 mg/dL (70-110); PHOSPHOROUS 2.4 mg/dL (2.5-4.5); SODIUM 140 mmol/L (132-148); TOTAL PROTEIN 6.6 g/dL (5.8-8.3)
[2016-05-16] MEDS ORDERED: Sodium Chloride 0.9% 100 ML IV SCH (08:00)
[2016-05-16] MEDS ORDERED: Sodium Chloride 0.9% 1,000 ML IV SCH (08:00)
[2016-05-16] MEDS: Verapamil 240 mg ER Tab PO SCH (10:28)
[2016-05-16] MEDS: Cilostazol 100 mg Tab UD PO SCH ×2 (10:29→17:32)
[2016-05-16] MEDS: Enoxaparin 40 mg Syringe SC SCH (10:29)
[2016-05-16] MEDS: Aspirin 325 mg EC Tablets PO SCH (10:29)
[2016-05-16] MEDS: cefTRIAXone 1 gm 100 ML IVPB SCH (10:30)
[2016-05-16] MEDS: Azithromycin 500MG/NS 250ml 250 ML IVPB SCH (10:30)
[2016-05-16] MEDS ORDERED: Digoxin 500 mcg/2ml (0.5 mg/2ml) Inj IVP ONE (12:04)
[2016-05-16 12:20] VITALS: PULSE 104
--- NOTE | 2016-05-16 14:17 | CP.PCM.PN ---
Subjective - Date & Time of Evaluation Date of Evaluation: 05/16/16 Time of Evaluation: 13:59 - Subjective Subjective: Infectious Disease Follow Up: May 16, 2016 65 yo male with sudden episodes of chest pain last evening primarily in the left side with shortness of breath and diaphoresis. He describes chest heaviness. 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 Imaging studies did show a RLL pneumonia. In addition, there was a question of whether bed bugs were found on the patient, he is under isolation and has been washed. RLL pneumonia may be worsened with the residual right sided hemiparesis. Noted fever two nights ago of 101.5 F. Leukocytosis resolved. Patient appears comfortable and has no major complaints. Objective - Vital Signs/Intake and Output Vital Signs (last 24 hours): Temp Pulse Resp BP Pulse Ox 98 F 103 H 18 146/99 H 96 05/16/16 12:00 05/16/16 12:00 05/16/16 12:00 05/16/16 12:00 05/16/16 06:00 Intake and Output: 05/16/16 05/16/16 06:59 18:59 Intake Total 240 Output Total 200 Balance 40 - Medications Medications: Current Medications Albuterol/Ipratropium (Duoneb 3 Mg/0.5 Mg (3 Ml) Ud) 3 ml IH [id number] [facility] Last Admin: 05/16/16 08:12 Dose: 3 ml Aspirin (Ecotrin) 325 mg PO DAILY [facility] Last Admin: 05/16/16 10:29 Dose: 325 mg Atenolol (Tenormin) 25 mg PO DAILY [facility] Last Admin: 05/16/16 10:30 Dose: 25 mg Atorvastatin Calcium (Lipitor) 20 mg PO DIN [facility] Last Admin: 05/15/16 17:32 Dose: 20 mg Baclofen (Lioresal) 10 mg PO BID [facility] Last Admin: 05/16/16 10:29 Dose: 10 mg Cilostazol (Pletal) 100 mg PO BID [facility] Last Admin: 05/16/16 10:29 Dose: 100 mg Clonidine HCl (Catapres-Tts3 0.3 Mg/24 Hr) 1 patch TD QWK [facility] Last Admin: 05/14/16 12:46 Dose: 1 patch Cyproheptadine HCl (Periactin) 4 mg PO DAILY [facility] Last Admin: 05/16/16 10:29 Dose: 4 mg Duloxetine HCl (Cymbalta) 30 mg PO DAILY [facility] Last Admin: 05/16/16 10:29 Dose: 30 mg Enoxaparin Sodium (Lovenox) 40 mg SC DAILY [facility] PRN Reason: Protocol Last Admin: 05/16/16 10:29 Dose: 40 mg Famotidine (Pepcid) 40 mg PO HS [facility] Last Admin: 05/15/16 23:03 Dose: 40 mg Gabapentin (Neurontin) 800 mg PO TID [facility] Last Admin: 05/16/16 13:36 Dose: 800 mg Ceftriaxone Sodium (Rocephin 1 Gram Ivpb) 100 mls @ 100 mls/hr IVPB DAILY [facility] PRN Reason: Protocol Last Admin: 05/16/16 10:30 Dose: 100 mls/hr Azithromycin (Zithromax 500mg In Ns) 250 mls @ 250 mls/hr IVPB DAILY [facility] PRN Reason: Protocol Last Admin: 05/16/16 10:30 Dose: 250 mls/hr Sodium Chloride (Sodium Chloride 0.9%) 1,000 mls @ 100 mls/hr IV .Q10H [facility] Last Admin: 05/16/16 07:54 Dose: 100 mls/hr Lisinopril (Zestril) 10 mg PO DAILY [facility] Last Admin: 05/16/16 10:30 Dose: 10 mg Verapamil HCl (Verapamil Inj) 2.5 mg IVP Q6H PRN PRN Reason: for Heart Rate >130 Last Admin: 05/16/16 09:34 Dose: 2.5 mg Verapamil HCl (Calan Sr Tab) 240 mg PO DAILY [facility] Last Admin: 05/16/16 10:28 Dose: 240 mg - Labs Labs: 05/16/16 06:45 05/16/16 06:45 PT 12.3 Seconds (9.9-11.8) H 05/13/16 12:30 INR 1.14 (0.93-1.08) H 05/13/16 12:30 APTT 30.5 Seconds (23.7-30.8) 05/13/16 12:30 - Constitutional Appears: Non-toxic, No Acute Distress, Chronically Ill - Head Exam Head Exam: ATRAUMATIC, NORMOCEPHALIC - Eye Exam Eye Exam: EOMI, PERRL Pupil Exam: NORMAL ACCOMODATION, PERRL - ENT Exam ENT Exam: Mucous Membranes Moist, Normal External Ear Exam, TM's Normal Bilaterally - Neck Exam Neck Exam: Full ROM, Normal Inspection - Respiratory Exam Respiratory Exam: Decreased Breath Sounds. absent: Rales, Rhonchi, Wheezes Additional comments: decreased to minimum breath movement in right side. - Cardiovascular Exam Cardiovascular Exam: Tachycardia, +S1, +S2 - GI/Abdominal Exam GI & Abdominal Exam: Soft, Normal Bowel Sounds. absent: Distended, Tenderness Additional comments: periods of Atrial flutter. - Extremities Exam Additional comments: right sided paralysis. - Neurological Exam Additional comments: no sensation on the right side - Psychiatric Exam Psychiatric exam: Normal Affect, Normal Mood - Skin Skin Exam: Intact, Normal Color Assessment and Plan - Assessment and Plan (Free Text) Assessment: 65 yo male with extensive past medical history that includes hypertension, depression, CVA history with residuals of speech impediment and right sided hemiparesis, presenting with chest pain and imaging studies showing a RLL pneumonia. Patient has been started on Rocephin and Azithromycin for antibiotics treatment at this time. Supportive care. Will need repeat Chest X- ray in the next 24-48 hours for further evaluation. Wells cultures have been sent. There is a moderate leukocytosis noted yesterday that resolved today. Supportive care. The patient is otherwise awake and alert and performs functions well with his left side. Recheck CBC. Repeat cultures if he is febrile again. His initial cultures are negative at 48 hours. Urinalysis did not suggest UTI although patient was already on antibiotics when samples taken. Check X-ray in morning. Thank you for allowing me to participate in the care of the patient, we will follow with you.
[2016-05-16] MEDS ORDERED: Potassium Phosphate 15 MMOLE in Sodium Chloride 0.9% 250 ML IVPB ONE (16:26)
--- NOTE | 2016-05-16 19:09 | PN ---
DATE: 05/16/2016 SUBJECTIVE: The patient is seen and examined on the bedside, looks comfortable. No nausea, vomiting, or diarrhea. No hematuria or hematochezia. No swelling of the leg. No chest pain or palpitation. No headache, no dizziness. PHYSICAL EXAMINATION: VITAL SIGNS: Temperature 98, pulse 94, blood pressure 146/99, respiratory rate 18. HEENT: Head normocephalic, atraumatic. Eyes: PERRLA. Extraocular muscles intact. Conjunctivae pink. Eyelids remarkable. Nose patent. NECK: Supple. No carotid bruit, JVD or thyromegaly. CHEST: Bilaterally symmetrical. HEART: S1, S2 positive. LUNGS: Clear to auscultation. ABDOMEN: Soft. Bowel sounds positive. No organomegaly. EXTREMITIES: No edema, no cyanosis. NEUROLOGIC: The patient is awake, alert and moving all 4 extremities. No focal deficits. MEDICATIONS: Calan, Catapres, Cymbalta, DuoNeb, Ecotrin, baclofen, Lipitor, Lovenox, Neurontin, Pepcid, Cipro, Pletal, potassium, ceftriaxone, atenolol, lisinopril, azithromycin. LABORATORY DATA: White blood cells 6.48, hemoglobin 11.0, hematocrit 33.3, platelets 118. Sodium 140, potassium 4.0, BUN 15, creatinine 0.9, phosphorus 2.4. BNP 1700. ASSESSMENT AND PLAN: The patient is a 65-year-old male with leukocytosis, improved, anemia, hypophosphatemia, ketonuria, influenza type A and B negative, seen by Dr. Wilman Akbar for pneumonia, history of hypertension and depression, cerebrovascular accident with residual impingement and right-sided hemiparesis , came with right lower lobe pneumonia, Rocephin and azithromycin. Wells cultures have been sent. Initial cultures are negative at 48 hours. Urine culture does not suggest urinary tract infection. I appreciated Dr. Wilman Akbar' s input. Seen by Dr. Rick rios, corporate representative, and maintenance department technician, Dr. Hein. History of depression, sleep apnea syndrome, rule out oropharyngeal dysphagia, high risk for aspiration, has community-acquired pneumonia, persistent tachycardia. He is on beta-kaden and calcium channel kaden. Sequential compression devices to the lower extremities. We will follow up. Rosie Whitman MD cc: [id number] TT: 05/16/2016 19:09:05 Confirmation # [id number] Dictation # [id number] MTDD
--- NOTE | 2016-05-16 20:00 | PN ---
DATE: 05/16/2016 REFERRING PHYSICIAN: Dr. Whitman. SUBJECTIVE: He is lying in the bed, head at 45 degrees, sleepy, arousable. Night was unremarkable. Decreased cough, decreased shortness of breath. No nausea, no vomiting, no diarrhea. No leg pain o r leg swelling. OBJECTIVE: GENERAL: In no acute distress. VITAL SIGNS: Temperature is 98, heart rate is 103, respiratory rate is 18, blood pressure 146/99, pu lse ox 96% on nasal cannula. HEENT: Moist mucous membranes. Crowded airway. Mallampati score is 4. NECK: Supple. No JVD. LUNGS: Has a few scattered rhonchi. HEART: S1 and S2. ABDOMEN: Soft, nontender. No organomegaly. EXTREMITIES: There is no edema. NEUROLOGIC: Awake, alert, follows simple commands. MEDICATIONS: He is on Calan SR 240 mg daily, Catapres patch weekly, which is 0.3 mg; Cymbalta 30 mg daily, DuoNeb q.6 hours, Ecotrin 325 mg daily, baclofen 10 mg twice a day, Lipitor 20 mg daily, Loven ox 40 mg daily, gabapentin 800 mg 3 times a day, Pepcid 40 mg daily, Periactin 4 mg daily, Pletal 100 mg twice a day, IV fluid with potassium 42 mL per hour, Rocephin 1 gram daily, Tenormin 25 mg daily, verapamil 2.5 mg q.6 hours p.r.n., Zestril 10 mg daily, Zithromax 500 mg daily. LABORATORY DATA: Shows hemoglobin 11.0, hematocrit 33.3, WBC 6.8, platelet is 118. Sodium 140, pota ssium 4.0, chloride 111, bicarbonate 23, BUN 15, creatinine 0.9, glucose is 87, calcium is 8.6, phosp horus is 2.4, AST 37, ALT 30, alkaline phosphatase is 72. ProBNP 1700. Albumin is 2.7. Microbiolog y: Blood cultures have been negative. Had an echocardiogram done yesterday, which shows right ventr icular systolic pressure of 38, left ventricular ejection fraction of 50, mild valvular heart disease . IMPRESSION AND PLAN: Community-acquired pneumonia, hypertension, history of cerebrovascular accident , depression, may have sleep apnea syndrome, tachycardia. Pulmonary point of view, doing okay. Cont inue bronchodilator. Continue antibiotics. Aspiration precaution. Will get chest x-ray to assure t he stability of infiltrate. Has mild pulmonary hypertension; cause of tachycardia ?; is related to p neumonia ? beta kaden is added, already on calcium channel kaden. Thank you and will follow with you. Nilsa Cabrera MD cc: [id number] TT: 05/16/2016 19:59:26 Confirmation # [id number] Dictation # [id number] dn
[2016-05-17] MEDS: Albuterol-Ipratrop 3 mg / 0.5 (3 ml) UD IH SCH ×4 (01:45→21:38)
[2016-05-17 08:40] LABS: BLOOD UREA NITROGEN 11 mg/dL (7-21); CALCIUM 9.1 mg/dL (8.4-10.5); CARBON DIOXIDE 24 mmol/L (21-33); CHLORIDE 108 mmol/L (95-110); GFR AFRICAN-AMERICAN > 60; GLUCOSE,RANDOM 80 mg/dL (70-110); MAGNESIUM 1.7 mg/dL (1.7-2.2); PHOSPHOROUS 3.9 mg/dL (2.5-4.5); POTASSIUM 3.8 mmol/L (3.6-5.0); SODIUM 141 mmol/L (132-148)
--- NOTE | 2016-05-17 09:27 | RAD ---
HISTORY: infiltrate COMPARISON: No prior. TECHNIQUE: Chest PA and lateral FINDINGS: LUNGS: Bibasilar infiltrates, left greater than right; cannot exclude effusion at the left base. PLEURA: See above. CARDIOVASCULAR: Normal. OSSEOUS STRUCTURES: No significant abnormalities. VISUALIZED UPPER ABDOMEN: Normal. OTHER FINDINGS: None. IMPRESSION: Bibasilar infiltrates, left greater than right; cannot exclude effusion at the left base.
--- NOTE | 2016-05-17 09:36 | RAD ---
PROCEDURE: CHEST RADIOGRAPH, 1 VIEW HISTORY: RLL Pneumonia COMPARISON: None available. FINDINGS: LUNGS: Left lower lobe infiltrate. PLEURA: Left pleural effusion. CARDIOVASCULAR: Normal. OSSEOUS STRUCTURES: No significant abnormalities. VISUALIZED UPPER ABDOMEN: Normal. OTHER FINDINGS: None. IMPRESSION: Left lower lobe infiltrate and effusion.
[2016-05-17] MEDS: Aspirin 325 mg EC Tablets PO SCH (10:54)
[2016-05-17] MEDS: Cilostazol 100 mg Tab UD PO SCH ×2 (10:54→18:15)
[2016-05-17] MEDS: Enoxaparin 40 mg Syringe SC SCH (10:55)
[2016-05-17] MEDS: Verapamil 240 mg ER Tab PO SCH (10:56)
[2016-05-17] MEDS: cefTRIAXone 1 gm 100 ML IVPB SCH (10:59)
[2016-05-17] MEDS: Azithromycin 500MG/NS 250ml 250 ML IVPB SCH (11:13)
--- NOTE | 2016-05-17 11:22 | PN ---
DATE: 05/17/2016 The patient is in room 271, bed 1. REASON FOR CONSULTATION AND FOLLOWUP: Shortness of breath, cough, chest pain with coughing, SVT. HISTORY OF PRESENT ILLNESS: I dictated progress note yesterday, but that is not available in the com puter at present. However, patient is a 65-year-old male with past medical history of CVA in the pas t, hypertension, right-sided hemiparesis. Admitted with cough and uncontrolled hypertension. Admitt ing blood pressure in Emergency Room was 205/123. The patient complained of chest pain on admission, which was related to his cough. Troponin was negative. The patient found to have a community-acqui red pneumonia, for which he is being treated. The patient yesterday morning had again run of SVT, so I increased the dose of verapamil and added atenolol and discontinued Lopressor and since then, tere ent has no run of supraventricular tachycardia. The patient is lying flat in bed without any chest p ain, shortness of breath, or palpitation. PHYSICAL EXAMINATION: VITAL SIGNS: Blood pressure 153/86, earlier pressure was 151/80, respirations 20, pulse 86, temperat ure 97.8. HEAD: Normocephalic. EYES: Pupils normal. Conjunctivae normal. NECK: JVP low. Carotid equal. THORAX: AP diameter normal. LUNGS: No significant rales. CARDIOVASCULAR: S1, S2. ABDOMEN: Soft, no tenderness, no organomegaly. EXTREMITIES: No clubbing, no cyanosis. LABORATORY DATA: WBC 6.8, hemoglobin 11.0, hematocrit 33.3, platelet 118. Sodium 141, potassium 3.8 , BUN 11, creatinine 0.8, calcium 9.1, phosphorus 3.9, magnesium 1.7. NT-pro B-natriuretic pep 1700. Total protein 6.6, albumin is low 2.7. Today's chest x-ray showed a left lower lobe infiltrate and effusion. Echo on 05/15 showed normal zonia mber sizes with LV ejection fraction 50%, moderate to severe aortic regurg, mitral regurgitation is m ild, mild tricuspid regurgitation, small pericardial effusion, small to moderate left pleural effusio n. DIAGNOSES: Supraventricular tachycardia, community-acquired pneumonia, left pleural effusion, cerebr ovascular accident old, mild anemia, history of cerebrovascular accident with right-sided weakness. RECOMMENDATION AND PLAN: Since increase of verapamil dose yesterday and put her on atenolol and disc ontinued Lopressor, the patient's rhythm has been stable. Will order IV Lexiscan stress test and sangeeta savage continue present therapy with verapamil SR 240 mg p.o. daily, atenolol 25 mg p.o. daily, aspirin 32 5 mg p.o. daily, Lipitor 20 mg p.o. daily, Lovenox 40 mg subQ daily, gabapentin 800 mg p.o. t.i.d., P epcid 40 mg p.o. daily, Rocephin 1 gram IV daily, lisinopril 10 mg daily, azithromycin 500 mg daily, clonidine 0.3 mg per 24 hour patch applied once a week. Will follow with you. Nilsa Castillo MD cc: [id number] TT: 05/17/2016 11:22:06 Confirmation # [id number] Dictation # [id number] en
--- NOTE | 2016-05-17 17:20 | CP.PCM.PN ---
Subjective - Date & Time of Evaluation Date of Evaluation: 05/17/16 Time of Evaluation: 16:00 - Subjective Subjective: Infectious Disease Follow Up: May 17, 2016 65 yo male with sudden episodes of chest pain last evening primarily in the left side with shortness of breath and diaphoresis. He describes chest heaviness. 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 Imaging studies did show a RLL pneumonia. In addition, there was a question of whether bed bugs were found on the patient, he was under isolation and has been washed. RLL pneumonia may be worsened with the residual right sided hemiparesis. Noted fever three nights ago of 101.5 F. Leukocytosis resolved. Patient appears comfortable and has no major complaints. Afebrile since. The patient appears comfortable. Objective - Vital Signs/Intake and Output Vital Signs (last 24 hours): Temp Pulse Resp BP Pulse Ox 98.1 F 104 H 20 151/81 H 96 05/17/16 12:00 05/17/16 12:00 05/17/16 12:00 05/17/16 12:00 05/16/16 06:00 Intake and Output: 05/17/16 05/17/16 06:59 18:59 Intake Total 272 Output Total 350 Balance -78 - Medications Medications: Current Medications Albuterol/Ipratropium (Duoneb 3 Mg/0.5 Mg (3 Ml) Ud) 3 ml IH [id number] [facility] Last Admin: 05/17/16 13:20 Dose: Not Given Aspirin (Ecotrin) 325 mg PO DAILY [facility] Last Admin: 05/17/16 10:54 Dose: 325 mg Atenolol (Tenormin) 25 mg PO DAILY [facility] Last Admin: 05/17/16 11:59 Dose: 25 mg Atorvastatin Calcium (Lipitor) 20 mg PO DIN [facility] Last Admin: 05/16/16 17:32 Dose: 20 mg Baclofen (Lioresal) 10 mg PO BID [facility] Last Admin: 05/17/16 10:55 Dose: 10 mg Cilostazol (Pletal) 100 mg PO BID [facility] Last Admin: 05/17/16 10:54 Dose: 100 mg Clonidine HCl (Catapres-Tts3 0.3 Mg/24 Hr) 1 patch TD QWK [facility] Last Admin: 05/14/16 12:46 Dose: 1 patch Cyproheptadine HCl (Periactin) 4 mg PO DAILY [facility] Last Admin: 05/17/16 11:08 Dose: 4 mg Duloxetine HCl (Cymbalta) 30 mg PO DAILY [facility] Last Admin: 05/17/16 10:55 Dose: 30 mg Enoxaparin Sodium (Lovenox) 40 mg SC DAILY [facility] PRN Reason: Protocol Last Admin: 05/17/16 10:55 Dose: 40 mg Famotidine (Pepcid) 40 mg PO HS [facility] Last Admin: 05/16/16 22:25 Dose: 40 mg Gabapentin (Neurontin) 800 mg PO TID [facility] Last Admin: 05/17/16 15:15 Dose: 800 mg Ceftriaxone Sodium (Rocephin 1 Gram Ivpb) 100 mls @ 100 mls/hr IVPB DAILY [facility] PRN Reason: Protocol Last Admin: 05/17/16 10:59 Dose: 100 mls/hr Azithromycin (Zithromax 500mg In Ns) 250 mls @ 250 mls/hr IVPB DAILY [facility] PRN Reason: Protocol Last Admin: 05/17/16 11:13 Dose: 250 mls/hr Lisinopril (Zestril) 10 mg PO DAILY [facility] Last Admin: 05/17/16 10:54 Dose: 10 mg Verapamil HCl (Verapamil Inj) 2.5 mg IVP Q6H PRN PRN Reason: for Heart Rate >130 Last Admin: 05/16/16 09:34 Dose: 2.5 mg Verapamil HCl (Calan Sr Tab) 240 mg PO DAILY [facility] Last Admin: 05/17/16 10:56 Dose: 240 mg - Labs Labs: 05/16/16 06:45 05/17/16 07:00 PT 12.3 Seconds (9.9-11.8) H 05/13/16 12:30 INR 1.14 (0.93-1.08) H 05/13/16 12:30 APTT 30.5 Seconds (23.7-30.8) 05/13/16 12:30 - Constitutional Appears: Non-toxic, No Acute Distress, Chronically Ill - Head Exam Head Exam: ATRAUMATIC, NORMOCEPHALIC - Eye Exam Eye Exam: EOMI, PERRL Pupil Exam: NORMAL ACCOMODATION, PERRL - ENT Exam ENT Exam: Mucous Membranes Moist, Normal External Ear Exam, TM's Normal Bilaterally - Neck Exam Neck Exam: Full ROM, Normal Inspection - Respiratory Exam Respiratory Exam: Decreased Breath Sounds, NORMAL BREATHING PATTERN. absent: Rales, Rhonchi, Wheezes Additional comments: decreased to minimum breath movement in right side. - Cardiovascular Exam Cardiovascular Exam: REGULAR RHYTHM, RRR, +S1, +S2 - GI/Abdominal Exam GI & Abdominal Exam: Soft, Normal Bowel Sounds. absent: Distended, Tenderness Additional comments: periods of Atrial flutter. - Extremities Exam Additional comments: right sided paralysis. - Neurological Exam Neurological Exam: Alert, Awake, CN II-XII Intact, Oriented x3 Additional comments: no sensation on the right side - Psychiatric Exam Psychiatric exam: Normal Affect, Normal Mood - Skin Skin Exam: Intact, Normal Color Assessment and Plan - Assessment and Plan (Free Text) Assessment: 65 yo male with extensive past medical history that includes hypertension, depression, CVA history with residuals of speech impediment and right sided hemiparesis, presenting with chest pain and imaging studies showing a RLL pneumonia. Patient has been started on Rocephin and Azithromycin for antibiotics treatment at this time. Supportive care. Will need repeat Chest X- ray in the next 24-48 hours for further evaluation. Wells cultures have been sent. There is a moderate leukocytosis noted yesterday that resolved today. Supportive care. The patient is otherwise awake and alert and performs functions well with his left side. Recheck CBC. Repeat cultures if he is febrile again. His initial cultures are negative at 48 hours. Urinalysis did not suggest UTI although patient was already on antibiotics when samples taken. Check X-ray yesterday showed bibasilar infiltrates and X-ray today showed left lower lobe infiltrates. Stopped Azithromycin and started Clindamycin for coverage of aspiration pneumonia. Will continue Rocephin. Thank you for allowing me to participate in the care of the patient, we will follow with you.
--- NOTE | 2016-05-17 18:40 | PN ---
DATE: 05/17/2016 REFERRING PHYSICIAN: Dr. Whitman. SUBJECTIVE: He is lying in the bed, head at 45 degrees, feels better, decreased cough, decreased garrett rtness of breath. No nausea, vomiting or diarrhea. No leg pain or leg swelling. OBJECTIVE: GENERAL: In no acute distress. VITAL SIGNS: Temp is 98, heart rate is 104, respiratory rate is 20, blood pressure 151/81, pulse ox 96% on 2 liters nasal cannula. HEENT: Moist mucous membranes. Crowded airway. NECK: Supple. No JVD. LUNGS: Has a fair airflow with a few rhonchi. HEART: S1 and S2. ABDOMEN: Soft, nontender. No organomegaly. EXTREMITIES: There is no edema. NEUROLOGIC: Awake, alert, follows simple commands. MEDICATIONS: He is on Calan SR 240 mg daily, Catapres 0.63 mg weekly, clindamycin 600 mg q.8 hours, Cymbalta 30 mg daily, DuoNeb q.6 hours, Ecotrin 81 mg daily, baclofen 10 mg twice a day, Lipitor 20 m g daily, Lovenox 40 mg daily, Neurontin 800 mg 3 times a day, Pepcid 40 mg daily, Periactin 4 mg lennox y, Pletal 100 mg twice a day, Rocephin 1 gram daily, Tenormin 25 mg daily, verapamil 2.5 mg q.6 hours p.r.n., Zestril 10 mg daily. LABORATORY DATA: Reviewed and shows sodium 141, potassium 3.8, chloride 108, bicarbonate 24, BUN 11, creatinine 0.8, glucose is 80, calcium is 9.1, phosphorus 3.9, magnesium is 1.7. Chest x-ray shows left lower lobe infiltrate and effusion. IMPRESSION AND PLAN: Left lower lobe pneumonia, hypertension, history of cerebrovascular accident, m ay have sleep apnea syndrome, tachycardia. Pulmonary point of view, doing okay. Continue bronchodil ator. Keep head elevated at 45 degree. Antibiotics as per infectious disease. Gastric prophylaxis. DVT prophylaxis. Being followed by cardiology and infectious disease. Aspiration precaution. Fol low up x-rays in a couple of weeks to assure the stability of infiltrate. Thank you and will follow with you. Nilsa Cabrera MD cc: [facility] TT: 05/17/2016 18:39:14 Confirmation # [id number] Dictation # [id number] dn
--- NOTE | 2016-05-17 20:27 | PN ---
DATE: 05/17/2016 SUBJECTIVE: The patient was seen and examined at the bedside, looks comfortable. Cough is better. Shortness of breath is better. No fever, no chills, no nausea, vomiting, or diarrhea. No hematuria or hematochezia. He still has partial aphasia. PHYSICAL EXAMINATION: VITAL SIGNS: Temperature 98.1, pulse 104, blood pressure 150/81, respiratory rate 20. HEENT: Head normocephalic, atraumatic. Eyes: PERRLA. Extraocular muscles intact. Conjunctivae pink. Eyelids unremarkable. Nose patent. Mucous membranes moist. NECK: Supple. No carotid bruit. No JVD or thyromegaly. CHEST: Bilaterally symmetrical. HEART: S1, S2 positive. LUNGS: Poor air entry. ABDOMEN: Soft. Bowel sounds positive. No organomegaly. EXTREMITIES: No edema, no cyanosis. NEUROLOGIC: The patient is awake, alert. MEDICATIONS: Calan, Catapres, Cymbalta, Ecotrin, baclofen, Lipitor, Lovenox, Neurontin, Pepcid, Cipro, Pletal, Rocephin, atenolol, verapamil, lisinopril, Zithromax. LABORATORY DATA: White blood cells 6.8, hemoglobin 11.0, hematocrit 33.8, and platelets 118. Sodium 141, potassium 3.8, BUN 11, creatinine 0.8. ASSESSMENT AND PLAN: The patient is a 65-year-old male with leukocytosis, anemia, thrombocytopenia, hyperchloremia, hypophosphatemia, ketonuria negative. Urine culture no growth. Blood culture no growth after 4 days. History of stroke with partial aphasia and left-sided weakness who came with community-acquired pneumonia, history of cerebrovascular accident, history of tachycardia. Aspiration precautions. Chest x-ray shows there are still infiltrates and pleural effusion. The patient is on beta-blockers and calcium channel blockers. Reviewed Dr. Cabrera's notes and Dr. Castillo's notes also. History of supraventricular tachycardia. Dr. Castillo added atenolol and discontinued the Lopressor. The patient's rhythm has been stable. Dr. Castillo wanted to do Lexiscan stress test and continue verapamil, atenolol, aspirin, Lipitor for hypercholesterolemia, Lovenox for DVT prophylaxis, gabapentin for peripheral neuropathy, Pepcid for GI prophylaxis. Getting Rocephin antibiotics for community-acquired pneumonia and lisinopril for high blood pressure; getting double antibiotics, Rocephin and azithromycin. Continue antibiotics as per Dr. Akbar. Repeat labs. Will followup. Rosie Whitman MD cc: [id number] TT: 05/17/2016 20:26:13 Confirmation # [id number] Dictation # [id number] timi GARCIA
[2016-05-18] MEDS: Albuterol-Ipratrop 3 mg / 0.5 (3 ml) UD IH SCH ×4 (02:41→20:24)
[2016-05-18 08:04] LABS: HEMATOCRIT 33.6 % (42.0-52.0); MEAN CELL VOLUME 78.5 fL (80.0-105.0); MEAN CORPUSCULAR HEMOGLOBIN 26.2 pg (25.0-35.0); MEAN CORPUSCULAR HGB CONC 33.3 g/dl (31.0-37.0); RED CELL DISTRIBUTION WIDTH 14.8 % (11.5-14.5); WHITE BLOOD COUNT 4.4 10^3/ul (4.5-11.0)
[2016-05-18 08:23] LABS: BLOOD UREA NITROGEN 10 mg/dL (7-21); CALCIUM 9.1 mg/dL (8.4-10.5); CARBON DIOXIDE 25 mmol/L (21-33); CHLORIDE 107 mmol/L (98-107); GFR AFRICAN-AMERICAN > 60; GLUCOSE,RANDOM 80 mg/dL (70-110); POTASSIUM 3.7 mmol/L (3.6-5.0); SODIUM 142 mmol/L (132-148)
--- NOTE | 2016-05-18 08:40 | PN ---
DATE: 05/16/2016 The patient is in room 271, bed 1. REASON FOR CONSULTATION AND FOLLOWUP: Shortness of breath, cough, chest pain on coughing last night and supraventricular tachycardia. HISTORY OF PRESENT ILLNESS: This is a 65-year-old male with a past medical history of cerebrovascula r accident, hypertension, right-sided hemiparesis, admitted with a cough and uncontrolled hypertensio n. Blood pressure in the Emergency Room was 205/123. The patient is getting a cough. Sometimes wit h the cough he has sharp chest pain, denies palpitations. Earlier, the patient had gone into SVT and was controlled with verapamil and this morning again while I was making rounds, the patient went int o SVT. IV verapamil 2.5 mg was given and he went into sinus rhythm. So I am going to increase the d ose of verapamil and also replace Lopressor with atenolol to control the heart rate. The patient den ies any chest pain or palpitations this morning. During the SVT the patient was asymptomatic. PHYSICAL EXAMINATION: VITAL SIGNS: Blood pressure 146/99, respirations 18, pulse 103, temperature 98. HEAD: Normocephalic. EYES: Pupils normal. Conjunctivae slightly pale. NECK: JVP low. Carotid equal. THORAX: AP diameter normal. LUNGS: No significant rales. CARDIOVASCULAR: S1, S2. ABDOMEN: Soft, nontender, no organomegaly. EXTREMITIES: No clubbing, no cyanosis. LABORATORY DATA: Shows WBC 6.8, hemoglobin 11.0, hematocrit 33.3, platelet 118. Sodium 140, potassi um 4.0, BUN 15, creatinine 0.9, calcium 8.6, phosphorus 2.4. AST, ALT normal. Magnesium 2.0. NT-Pr oB natriuretic pep 1700. Total protein 6.6, albumin 2.7. Troponin negative. DIAGNOSES: Supraventricular tachycardia, pneumonia on CAT scan of the chest, history of cerebrovascu lar accident, old; uncontrolled hypertension. PLAN: The patient had an echocardiogram on 05/15/2016 that showed a normal chamber size with an ejec tion fraction of 50%, [id number] aortic regurgitation, mild mitral regurgitation, mild tricus pid regurg, RVSP 48 mmHg, small pericardial effusion, [id number] left pleural effusion. Will increase his verapamil dose to 240, the patient was getting 180, will increase it to 240 today a nd daily. Will replace Lopressor with atenolol 25 mg today and daily, atorvastatin 20 mg p.o. daily, and Lovenox 40 mg subQ daily. The patient received a stat dose of verapamil 2.5 mg IV doing SVT and converted to sinus rhythm. Aspirin 325 mg p.o. daily, Lipitor 20 mg p.o. daily, Neurontin 100 mg p. o. t.i.d., Pletal 100 mg p.o. b.i.d., Rocephin 1 gram IV daily, Zestril 10 mg daily, azithromycin 500 mg IV daily, clonidine 0.3 mg over 24 hours and a TTS patch once a week. Will monitor his heart rat e, will monitor blood pressure and will follow with you. Nilsa Castillo MD cc: [id number] TT: 05/16/2016 19:06:39 Confirmation # [id number] Dictation # [id number] dn
[2016-05-18] MEDS: Aspirin 325 mg EC Tablets PO SCH (09:16)
[2016-05-18] MEDS: Cilostazol 100 mg Tab UD PO SCH ×2 (09:16→18:52)
[2016-05-18] MEDS: Verapamil 240 mg ER Tab PO SCH (09:17)
[2016-05-18] MEDS: Enoxaparin 40 mg Syringe SC SCH (09:17)
[2016-05-18] MEDS: cefTRIAXone 1 gm 100 ML IVPB SCH (09:17)
[2016-05-18] MEDS ORDERED: Aminophylline 25 mg/ml Inj ONE (13:09)
--- NOTE | 2016-05-18 13:39 | PN ---
DATE: 05/18/2016 REASON FOR CONSULTATION AND FOLLOWUP: Chest pain, SVT, pneumonia, shortness of breath. BRIEF CLINICAL HISTORY: A 65-year-old male with a past medical history significant for CVA with righ t-sided weakness, right hemiparalysis. Admitted with cough, uncontrolled hypertension. Admitting bl ood pressure was 205/123. Chest pain with coughing. The patient yesterday morning had again run of SVT. Increased dose of verapamil added to atenolol. Now patient is stable and Lopressor was discont inued. The patient remained stable. The patient is scheduled for a stress test today. No episodes of further arrhythmia noted. PHYSICAL EXAMINATION: VITAL SIGNS: Temperature afebrile, heart rate 109, blood pressure 143/78. HEENT: PERRLA. Extraocular muscles intact. NECK: Supple. No carotid bruits. No thyromegaly. CHEST: Clear to auscultation. HEART: S1, S2 regular. ABDOMEN: Soft. EXTREMITIES: Clubbing, cyanosis negative. BLOOD WORKUP: WBC 4. , hemoglobin 11. , hematocrit 33.6, platelet count 171. Chemistry show s sodium 142, potassium 3.7, chloride , carbon dioxide 25, anion gap of 14, BUN 10, creatinine 0 .7. IMPRESSION: Atypical chest pain, cerebrovascular accident, right-sided weakness, supraventricular ta chycardia, pneumonia, left lower lobe infiltrate effusion. Echo 05/15/2016 shows normal chamber size, ejection fraction 50%-55%, moderate to severe aortic regurgitation, mild mitral regurgitation, mild tricuspid regurgitation, small pericardial effusion, small to moderate left pleural effusion. Community-acquired pneumonia, supraventricular tachycardia, pleural effusion, cerebrovascular acciden t. RECOMMENDATIONS: The patient is going for a stress test today. Cardizem was increased to 240 mg. A tenolol was given. We will increase atenolol to 25 b.i.d. and follow up the stress test. Further re commendation after the stress test. Thank you, Dr. Whitman, for providing us the opportunity in taking care of the patient. Nilsa Hein MD cc:Rosie Whitman MD [id number] TT: 05/18/2016 13:38:21 Confirmation # [id number] Dictation # [id number] en
--- NOTE | 2016-05-18 17:05 | CP.PCM.PN ---
Subjective - Date & Time of Evaluation Date of Evaluation: 05/18/16 Time of Evaluation: 17:00 - Subjective Subjective: Infectious Disease Follow Up: May 18, 2016 65 yo male with sudden episodes of chest pain last evening primarily in the left side with shortness of breath and diaphoresis. He describes chest heaviness. 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 Imaging studies did show a RLL pneumonia. In addition, there was a question of whether bed bugs were found on the patient, he was under isolation and has been washed. RLL pneumonia may have been worsened with the residual right sided hemiparesis. Noted fever four nights ago of 101.5 F. Leukocytosis resolved. Patient appears comfortable and has no major complaints. Afebrile since. The patient appears comfortable and has no complaints. Objective - Vital Signs/Intake and Output Vital Signs (last 24 hours): Temp Pulse Resp BP Pulse Ox 97.5 F L 82 20 143/78 92 L 05/18/16 05:37 05/18/16 14:00 05/18/16 05:37 05/18/16 09:17 05/18/16 05:37 Intake and Output: 05/18/16 05/18/16 06:59 18:59 Intake Total 1020 Output Total 2100 Balance -1080 - Medications Medications: Current Medications Albuterol/Ipratropium (Duoneb 3 Mg/0.5 Mg (3 Ml) Ud) 3 ml IH [id number] [facility] Last Admin: 05/18/16 14:06 Dose: Not Given Aspirin (Ecotrin) 325 mg PO DAILY [facility] Last Admin: 05/18/16 09:16 Dose: 325 mg Atenolol (Tenormin) 25 mg PO BID [facility] Atorvastatin Calcium (Lipitor) 20 mg PO DIN [facility] Last Admin: 05/17/16 18:16 Dose: 20 mg Baclofen (Lioresal) 10 mg PO BID [facility] Last Admin: 05/18/16 09:16 Dose: 10 mg Cilostazol (Pletal) 100 mg PO BID [facility] Last Admin: 05/18/16 09:16 Dose: 100 mg Clonidine HCl (Catapres-Tts3 0.3 Mg/24 Hr) 1 patch TD QWK [facility] Last Admin: 05/14/16 12:46 Dose: 1 patch Cyproheptadine HCl (Periactin) 4 mg PO DAILY [facility] Last Admin: 05/18/16 09:16 Dose: 4 mg Duloxetine HCl (Cymbalta) 30 mg PO DAILY [facility] Last Admin: 05/18/16 09:16 Dose: 30 mg Enoxaparin Sodium (Lovenox) 40 mg SC DAILY [facility] PRN Reason: Protocol Last Admin: 05/18/16 09:17 Dose: 40 mg Famotidine (Pepcid) 40 mg PO HS [facility] Last Admin: 05/17/16 21:54 Dose: 40 mg Gabapentin (Neurontin) 800 mg PO TID [facility] Last Admin: 05/18/16 15:15 Dose: 800 mg Ceftriaxone Sodium (Rocephin 1 Gram Ivpb) 100 mls @ 100 mls/hr IVPB DAILY [facility] PRN Reason: Protocol Last Admin: 05/18/16 09:17 Dose: 100 mls/hr Clindamycin Phosphate 600 mg/ (Sodium Chloride) 54 mls @ 102 mls/hr IVPB Q8 [facility] PRN Reason: Protocol Last Admin: 05/18/16 15:15 Dose: 102 mls/hr Lisinopril (Zestril) 10 mg PO DAILY [facility] Last Admin: 05/18/16 09:16 Dose: 10 mg Verapamil HCl (Verapamil Inj) 2.5 mg IVP Q6H PRN PRN Reason: for Heart Rate >130 Last Admin: 05/16/16 09:34 Dose: 2.5 mg Verapamil HCl (Calan Sr Tab) 240 mg PO DAILY [facility] Last Admin: 05/18/16 09:17 Dose: 240 mg - Labs Labs: 05/18/16 07:40 05/18/16 07:40 PT 12.3 Seconds (9.9-11.8) H 05/13/16 12:30 INR 1.14 (0.93-1.08) H 05/13/16 12:30 APTT 30.5 Seconds (23.7-30.8) 05/13/16 12:30 - Constitutional Appears: Non-toxic, No Acute Distress, Chronically Ill - Head Exam Head Exam: ATRAUMATIC, NORMOCEPHALIC - Eye Exam Eye Exam: EOMI, PERRL Pupil Exam: NORMAL ACCOMODATION, PERRL - Respiratory Exam Respiratory Exam: Decreased Breath Sounds. absent: Rales, Rhonchi, Wheezes Additional comments: decreased to minimum breath movement in right side. - Cardiovascular Exam Cardiovascular Exam: REGULAR RHYTHM, RRR, +S1, +S2 - GI/Abdominal Exam GI & Abdominal Exam: Soft, Normal Bowel Sounds. absent: Distended, Tenderness Additional comments: periods of Atrial flutter. - Extremities Exam Additional comments: right sided paralysis. - Neurological Exam Neurological Exam: Alert, Awake, CN II-XII Intact, Oriented x3 Additional comments: no sensation on the right side - Psychiatric Exam Psychiatric exam: Normal Affect, Normal Mood - Skin Skin Exam: Intact, Normal Color Assessment and Plan - Assessment and Plan (Free Text) Assessment: 65 yo male with extensive past medical history that includes hypertension, depression, CVA history with residuals of speech impediment and right sided hemiparesis, presenting with chest pain and imaging studies showing a RLL pneumonia. Patient has been started on Rocephin and Azithromycin for antibiotics treatment at this time. Supportive care. Will need repeat Chest X- ray in the next 24-48 hours for further evaluation. Wells cultures have been sent. There is a moderate leukocytosis noted yesterday that resolved today. Supportive care. The patient is otherwise awake and alert and performs functions well with his left side. Recheck CBC. Repeat cultures if he is febrile again. His initial cultures are negative at 48 hours. Urinalysis did not suggest UTI although patient was already on antibiotics when samples taken. Check X-ray Wednesday showed bibasilar infiltrates and X-ray Wednesday showed left lower lobe infiltrates. Patient went for stress test today. Yesterday, stopped Azithromycin and started Clindamycin for coverage of aspiration pneumonia. Will continue on Rocephin and Clindamycin. Can consider a switch to oral antibiotics that includes Clindamycin and Keflex for 7 additional days of treatment. Thank you for allowing me to participate in the care of the patient, we will follow with you.
--- NOTE | 2016-05-18 18:23 | PN ---
DATE: 05/18/2016 REFERRING PHYSICIAN: Dr. Whitman. SUBJECTIVE: He is lying in the bed, examined and seen in the stress lab. No headache, no rhinitis, breathing is better, no chest pain. No dysuria or leg pain or leg swelling. OBJECTIVE: GENERAL: No acute distress. VITAL SIGNS: Temperature is 98, heart rate is 82, respiratory rate is 20, blood pressure 143/78, pul se ox 92% on room air. HEENT: Moist mucous membranes. Crowded airway. Mallampati score is 4. NECK: Supple. No JVD. LUNGS: Have a fair airflow with rhonchi. HEART: S1, S2. ABDOMEN: Soft, nontender. No organomegaly. EXTREMITIES: There is no edema. NEUROLOGIC: Awake, alert, follows simple commands. MEDICATIONS: He is on verapamil 240 mg daily, Catapres 0.3 mg weekly, clindamycin 600 mg q. 8 hours , Cymbalta 30 mg daily, DuoNeb q. 6 hours, Ecotrin 325 mg daily, Baclofen 10 mg twice a day, Lipitor 20 mg daily, Lovenox 40 mg daily, Neurontin 800 mg 3 times a day, Pepcid 40 mg at bedtime, Periactin 4 mg daily, Pletal 100 mg twice a day, Rocephin 1 gram daily, Tenormin 25 mg twice a day, verapamil 2 .5 mg IV q. 6 hours p.r.n., Zestril 10 mg daily. LABORATORY DATA: Shows hemoglobin 11.2, hematocrit 33.6, WBC 4.4, platelet is 171. Sodium is 142, p otassium is 3.7, chloride 107, bicarbonate is 25, BUN 10, creatinine 0.9, glucose is 80, calcium is 9 .1. MICROBIOLOGY: Blood culture, urine culture, there is no growth. Had a myocardial stress test done, report is pending. IMPRESSION AND PLAN: Left lower lobe pneumonia, hypertension, history of cerebrovascular accident, m ay have sleep apnea syndrome, tachycardia. Cardiac workup is in progress. Pulmonary point of view, he is doing antibiotics as per infectious diseases. Keep head elevated at 45 degrees. Gastric proph ylaxis. Deep venous thrombosis prophylaxis. On beta kaden and calcium channel kaden. Will caitie mmend sleep study as outpatient. Thank you and we will follow with you. Nilsa Cabrera MD cc: [id number] TT: 05/18/2016 18:22:09 Confirmation # [id number] Dictation # [id number] jn
--- NOTE | 2016-05-18 22:17 | CARD ---
APPROVED REPORT Protocol: LEXISCAN Test Type: Lexiscan Sestamibi Stress Test Attending Physician: Dr. Nilsa Castillo Referring Physician: Dr. Rosie Whitman Test Indications: Chest Pain Height:5 ft 11 in Weight:167lbs Medications: Duoneb, Aspirin, Lipitor, Zithromax, Lioresal, Rocephin, Pletal, Catapres, Periactin, Cymbalta, Lovenox, Pepcid, Neurontin, Zestril, Toprol,K-Dur, Verapamil Medical History: 65 y/o male with a history of CVA and htn Target HR: 157 bpm Resting ECG: RSR. Lt.Ant.[place]-Block.Non Specific ST_T Changes. Resting Heart Rate: 81 bpm Resting Blood Pressure: 122/70mmHg Submaximum (85%): 133 bpm PROCEDURE Pharmacologic stress testing was performed using 0.4mg per 5ml of regadenoson given intravenously over 7-10 seconds. POST EXERCISE Reason for Termination: Protocol completed Target HR: No Max HR: 87 bpm 59% of Maximum Predicted HR: 157 bpm Exercise duration: 00:31 min:sec, 0 Stage Exercise capacity: 1.0METs Max Blood Pressure: 122/70mmHg Blood Pressure response to exercise: normal resting BP - appropriate response Heart Rate response to exercise: appropriate Chest Pain: No, none Angina index: 0 Arrhythmia: No, none ST Change: No, none Deviation: 0 mm INTERPRETATION Stress EKG Conclusion: IV LEXISCAN NUCLEAR STRESS TEST NEGATIVE FOR CHEST PAIN AND NEGATIVE FOR ADDITIONAL ST-T CHANGES. NUCLEAR SCAN REPORT TO FOLLOW. Signed by Nilsa Castillo Electronically Approved: 05/18/2016 14:18:19 EXAM: Myocardial Perfusion REST/STRESS Stress Test Type: Pharmacologic Imaging Protocol Rest Spect myocardial perfusion imaging was performed in supine position 150 minutes following the injection of 10 mCi of Tc-99 Myoview. At peak stress, the patient was injected intravenously with 30.8mCi of Tc-99 tetrofosmin after an infusion time of minutes and 10 seconds. Gated Stress Spect was performed 50 minutes after intravenous Tc-99 Myoview injection. The images were gated to evaluate regional wall motion and calculate ventricular ejection fraction.Images were reconstructed using backfilter projection method in short horizontal and verticle long axis. Spect slices were generated. LV Perfusion The quality of the study is suboptimal due to motion during the acquistion. The left ventricle is mildly enlarged in size. The right ventricle is unremarkable. The lung uptake is normal. The distribution of tracer reveals an area of mildly to moderately decreased perfusion involving mid to basal inferolateral wall on the stress study. The remainder of the LV myocardium is unremarkable. The rest myocardial perfusion study shows no significant improvement of the defect. Wall Motion Gated wall motion study shows normal contractility of the left ventricle, worse in inferolateral wall. LVEF = 65%. Conclusion 1. Probably abnormal SPECT myocardial perfusion study. 2. Fixed, inferolateral defect is suspicious of previous myocardial injury. 3. Normal gated wall motion of the left ventricle.
--- NOTE | 2016-05-19 01:24 | PN ---
DATE: 05/18/2016 The patient is a 65-year-old male. SUBJECTIVE: The patient seen and examined on the bedside. Looks comfortable. No big change in the status. Went for stress test. No dysuria. No swelling of the legs. No fever. No chills. No headache. No dizziness. PHYSICAL EXAMINATION: VITAL SIGNS: Temperature 98, heart rate 80 , respiratory rate 20, blood pressure 130/78, pulse oximetry between 90 and 98. HEAD: Normocephalic, atraumatic. EYES: PERRLA. Extraocular muscles intact. Conjunctivae pink. Eyelids unremarkable. Nose patent. Mucous membranes moist. NECK: Supple. No carotid bruit. No thyromegaly. CHEST: Bilaterally symmetrical. HEART: S1, S2 positive. LUNGS: Clear to auscultation. ABDOMEN: Soft. Bowel sounds present. No organomegaly. EXTREMITIES: No edema. No cyanosis. NEUROLOGIC: The patient is awake, alert and moving all 4 extremities. No focal deficits. MEDICATIONS: Verapamil, Catapres, clindamycin, Cymbalta, DuoNeb, Ecotrin, baclofen, Lipitor, Lovenox, Neurontin, Pepcid, Periactin, Pletal, Rocephin, Tenormin, Zestril. LABORATORY DATA: Hemoglobin 11.2, hematocrit 33.6, white blood cells 4.4, and platelets 171. Sodium noted , potassium 3.7, BUN 10, creatinine is 0.9, glucose 80, calcium 9.1. Blood culture and urine cultures are negative. ASSESSMENT AND PLAN: The patient is a 65-year-old male with left lower lobe pneumonia, hypertension, history of cerebrovascular accident, sleep apnea, tachycardia. Went for a stress test today. Results are pending. Seen by Dr. Akbar. Stopped the azithromycin. Started clindamycin for coverage aspiration pneumonia. We will continue treatment by switching to oral antibiotics that include clindamycin and Keflex for 7 days for treatment. We will try to send the patient to rehab. 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 Supraventricular tachycardia, pleural effusion, cerebrovascular accident, gastrointestinal and deep vein thrombosis prophylaxis. Repeat labs. We will follow up. Rosie Whitman MD cc: [id number] TT: 05/19/2016 01:00:17 Confirmation # [id number] Dictation # [id number] tn 05/19/2016 00:23:55 CARLOSD
[2016-05-19] MEDS: Albuterol-Ipratrop 3 mg / 0.5 (3 ml) UD IH SCH ×5 (01:40→23:25)
[2016-05-19 07:55] LABS: HEMATOCRIT 35.6 % (42.0-52.0); MEAN CELL VOLUME 78.2 fL (80.0-105.0); MEAN CORPUSCULAR HEMOGLOBIN 26.6 pg (25.0-35.0); MEAN PLATELET VOLUME 10.7 fl (7.0-11.0); RED CELL DISTRIBUTION WIDTH 14.7 % (11.5-14.5); WHITE BLOOD COUNT 4.4 10^3/ul (4.5-11.0)
[2016-05-19 08:03] LABS: BLOOD UREA NITROGEN 9 mg/dL (7-21); CALCIUM 9.2 mg/dL (8.4-10.5); CARBON DIOXIDE 27 mmol/L (21-33); CHLORIDE 105 mmol/L (95-110); GFR AFRICAN-AMERICAN > 60; GLUCOSE,RANDOM 75 mg/dL (70-110); POTASSIUM 3.7 mmol/L (3.6-5.0); SODIUM 142 mmol/L (132-148)
[2016-05-19] MEDS: Cilostazol 100 mg Tab UD PO SCH ×2 (10:34→18:08)
[2016-05-19] MEDS: Verapamil 240 mg ER Tab PO SCH (10:35)
[2016-05-19] MEDS: Aspirin 325 mg EC Tablets PO SCH (10:35)
[2016-05-19] MEDS: Enoxaparin 40 mg Syringe SC SCH (10:36)
[2016-05-19] MEDS: cefTRIAXone 1 gm 100 ML IVPB SCH (10:36)
--- NOTE | 2016-05-19 13:48 | PN ---
DATE: 05/19/2016 REASON FOR CONSULTATION AND FOLLOWUP: Chest pain, SVT, pneumonia, shortness of breath, negative stre ss test. BRIEF CLINICAL HISTORY: A 65-year-old male with past medical history significant for CVA with right- sided weakness, right hemiparesis, admitted with cough, uncontrolled hypertension, chest pain on coug eleuterio, had 2 episodes of SVT, started on ____ now and Tenormin and verapamil, now is stable. Denies a ny chest pain, shortness of breath. Yesterday underwent a stress test that that was negative. PHYSICAL EXAMINATION: VITAL SIGNS: Temperature afebrile, heart rate is 85, blood pressure 135/85. HEENT: PERRLA. Extraocular muscles intact. NECK: Supple. No carotid bruits. No thyromegaly. CHEST: Clear to auscultation. HEART: S1, S2 regular. ABDOMEN: Soft. EXTREMITIES: Clubbing and cyanosis negative. BLOOD WORKUP: As follows: WBC 4.4, hemoglobin 12.9, hematocrit 35.6, platelet count 181. Chemistry shows sodium 142, potassium 3.7, chloride 105, carbon dioxide 27, gap of 14, BUN 9, creatinine 0.9. IMPRESSION: Atypical chest pain, negative stress test. Pneumonia, supraventricular tachycardia, res olved, stable on atenolol and verapamil. Echo shows normal chamber size, ejection fraction 55%, mode rate to severe aortic regurgitation, mild mitral regurgitation, mild tricuspid regurgitation, a small pericardial effusion, small to moderate left pleural effusion, community-acquired pneumonia, tachyca rdia, pleural effusion, cerebrovascular accident with right-sided weakness. Yesterday stress test cristopher hinds 05/18/2016 showed a fixed inferolateral defect suspicious of previous myocardial injury, ejection fraction 55%, no significant improvement noted on rest. RECOMMENDATION: Continue aggressive medical treatment. Continue verapamil 240 mg daily, continue at enolol 25 mg b.i.d. Continue lisinopril. We will follow with you. Thank you, Dr. Whitman, for providing us the opportunity in taking care of the patient. We will follo w with you. Nilsa Hein MD cc: [id number] TT: 05/19/2016 13:48:19 Confirmation # [id number] Dictation # [id number] tn
--- NOTE | 2016-05-19 15:46 | CP.PCM.PN ---
Subjective - Date & Time of Evaluation Date of Evaluation: 05/19/16 Time of Evaluation: 15:28 - Subjective Subjective: Infectious Disease Follow Up: May 19, 2016 65 yo male with sudden episodes of chest pain last evening primarily in the left side with shortness of breath and diaphoresis. He describes chest heaviness. 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 Imaging studies did show a RLL pneumonia. In addition, there was a question of whether bed bugs were found on the patient, he was under isolation and has been washed. RLL pneumonia may have been worsened with the residual right sided hemiparesis. Noted fever four nights ago of 101.5 F. Leukocytosis resolved. Patient appears comfortable and has no major complaints. Afebrile since. The patient appears comfortable and has no complaints. The patient refused rehab placement. Objective - Vital Signs/Intake and Output Vital Signs (last 24 hours): Temp Pulse Resp BP Pulse Ox 98.1 F 85 20 175/85 H 96 05/19/16 07:30 05/19/16 10:35 05/19/16 07:30 05/19/16 10:35 05/19/16 07:30 Intake and Output: 05/19/16 05/19/16 06:59 18:59 Intake Total 540 360 Output Total 1350 1350 Balance -810 -990 - Medications Medications: Current Medications Albuterol/Ipratropium (Duoneb 3 Mg/0.5 Mg (3 Ml) Ud) 3 ml IH [id number] [facility] Last Admin: 05/19/16 14:09 Dose: 3 ml Aspirin (Ecotrin) 325 mg PO DAILY [facility] Last Admin: 05/19/16 10:35 Dose: 325 mg Atenolol (Tenormin) 25 mg PO BID [facility] Last Admin: 05/19/16 10:35 Dose: 25 mg Atorvastatin Calcium (Lipitor) 20 mg PO DIN [facility] Last Admin: 05/18/16 18:52 Dose: 20 mg Baclofen (Lioresal) 10 mg PO BID [facility] Last Admin: 05/19/16 10:35 Dose: 10 mg Cilostazol (Pletal) 100 mg PO BID [facility] Last Admin: 05/19/16 10:34 Dose: 100 mg Clonidine HCl (Catapres-Tts3 0.3 Mg/24 Hr) 1 patch TD QWK [facility] Last Admin: 05/14/16 12:46 Dose: 1 patch Cyproheptadine HCl (Periactin) 4 mg PO DAILY [facility] Last Admin: 05/19/16 10:34 Dose: 4 mg Duloxetine HCl (Cymbalta) 30 mg PO DAILY [facility] Last Admin: 05/19/16 10:34 Dose: 30 mg Enoxaparin Sodium (Lovenox) 40 mg SC DAILY [facility] PRN Reason: Protocol Last Admin: 05/19/16 10:36 Dose: 40 mg Famotidine (Pepcid) 40 mg PO HS [facility] Last Admin: 05/18/16 23:30 Dose: 40 mg Gabapentin (Neurontin) 800 mg PO TID [facility] Last Admin: 05/19/16 14:26 Dose: 800 mg Hydralazine HCl (Apresoline) 10 mg PO QID PRN PRN Reason: for Sbp.170 & diastolic>100 Ceftriaxone Sodium (Rocephin 1 Gram Ivpb) 100 mls @ 100 mls/hr IVPB DAILY [facility] PRN Reason: Protocol Last Admin: 05/19/16 10:36 Dose: 100 mls/hr Clindamycin Phosphate 600 mg/ (Sodium Chloride) 54 mls @ 102 mls/hr IVPB Q8 [facility] PRN Reason: Protocol Last Admin: 05/19/16 14:26 Dose: 102 mls/hr Lisinopril (Zestril) 10 mg PO DAILY [facility] Last Admin: 05/19/16 10:35 Dose: 10 mg Verapamil HCl (Verapamil Inj) 2.5 mg IVP Q6H PRN PRN Reason: for Heart Rate >130 Last Admin: 05/16/16 09:34 Dose: 2.5 mg Verapamil HCl (Calan Sr Tab) 240 mg PO DAILY [facility] Last Admin: 05/19/16 10:35 Dose: 240 mg - Labs Labs: 05/19/16 07:00 05/19/16 07:00 PT 12.3 Seconds (9.9-11.8) H 05/13/16 12:30 INR 1.14 (0.93-1.08) H 05/13/16 12:30 APTT 30.5 Seconds (23.7-30.8) 05/13/16 12:30 - Constitutional Appears: Non-toxic, No Acute Distress, Chronically Ill - Head Exam Head Exam: ATRAUMATIC, NORMOCEPHALIC - Eye Exam Eye Exam: EOMI, PERRL Pupil Exam: NORMAL ACCOMODATION, PERRL - ENT Exam ENT Exam: Mucous Membranes Moist, Normal External Ear Exam, TM's Normal Bilaterally - Respiratory Exam Respiratory Exam: Decreased Breath Sounds. absent: Rales, Rhonchi, Wheezes Additional comments: decreased to minimum breath movement in right side. - Cardiovascular Exam Cardiovascular Exam: REGULAR RHYTHM, RRR, +S1, +S2 Additional comments: periods of Atrial flutter. - GI/Abdominal Exam GI & Abdominal Exam: Soft, Normal Bowel Sounds. absent: Distended, Tenderness - Extremities Exam Additional comments: right sided paralysis. - Neurological Exam Neurological Exam: Alert, Awake, CN II-XII Intact, Oriented x3 Additional comments: no sensation on the right side - Psychiatric Exam Psychiatric exam: Normal Affect, Normal Mood - Skin Skin Exam: Intact, Normal Color Assessment and Plan - Assessment and Plan (Free Text) Assessment: 65 yo male with extensive past medical history that includes hypertension, depression, CVA history with residuals of speech impediment and right sided hemiparesis, presenting with chest pain and imaging studies showing a RLL pneumonia. Patient has been started on Rocephin and Azithromycin for antibiotics treatment at this time. Supportive care. Will need repeat Chest X- ray in the next 24-48 hours for further evaluation. Wells cultures have been sent. There is a moderate leukocytosis noted yesterday that resolved today. Supportive care. The patient is otherwise awake and alert and performs functions well with his left side. Recheck CBC. Repeat cultures if he is febrile again. His initial cultures are negative at 48 hours. Urinalysis did not suggest UTI although patient was already on antibiotics when samples taken. Check X-ray Wednesday showed bibasilar infiltrates and X-ray Wednesday showed left lower lobe infiltrates. Patient went for stress test today. Yesterday, stopped Azithromycin and started Clindamycin for coverage of aspiration pneumonia. Will continue on Rocephin and Clindamycin. Can consider a switch to oral antibiotics that includes Clindamycin and Keflex for 7 additional days of treatment. Thank you for allowing me to participate in the care of the patient, we will follow with you.
--- NOTE | 2016-05-19 21:41 | PN ---
DATE: 05/19/2016 REFERRING PHYSICIAN: Dr. Whitman. SUBJECTIVELY: He is lying in the bed, head at 45 degree. Night was unremarkable. Decreased cough, decreased shortness of breath. No nausea, no vomiting, diarrhea, leg pain, or leg swelling. OBJECTIVELY: No acute distress. Temp is 98, heart rate is 107, respiratory rate is 20, blood pressure 152/98, pulse ox 96% on 2 L shivani al cannula. HENT: Moist mucous membrane. Crowded airway. NECK: Supple, no JVD. LUNGS: Have a fair airflow with few rhonchi. HEART: S1, S2. ABDOMEN: Soft, nontender. No organomegaly. EXTREMITIES: There is no edema. NEUROLOGICALLY: Awake, alert. Follows simple commands. MEDICATIONS: He is on hydralazine 10 mg q.i.d. p.r.n., Calan SR 240 mg daily, Catapres 0.3 mg weekly , clindamycin 600 mg q. 8 hours, Cymbalta 30 mg daily, DuoNeb q. 6 hours, Ecotrin 325 mg daily, baclo fen 10 mg twice a day, Lipitor 20 mg daily, Lovenox 40 mg daily, Neurontin 800 mg 3 times a day, Pepc id 40 mg at bedtime, Periactin 4 mg daily, Pletal 100 mg twice a day, Rocephin 1 g daily, Tenormin 25 mg twice a day, verapamil 2.5 mg q. 6 hours p.r.n., Zestril 10 mg daily. LABORATORY DATA: Shows hemoglobin 12.1, hematocrit 35.6, WBC 4.4, platelets is 181. Sodium 142, pot assium 3.7, chloride 105, bicarbonate 27, BUN 19, creatinine 0.9, glucose 75, calcium is 9.2. Myocardial stress test done yesterday which shows probably abnormal SPECT myocardial perfusion study, fixed. since the patient has a previous myocardial infarction. Normal gated wall motion with left ventricular ejection fraction about 65%. IMPRESSION AND PLAN: Left lower lobe pneumonia, hypertension, cerebrovascular accident in the past, sleep apnea syndrome, tachycardia improved on beta kaden and calcium channel kaden. Pulmonary point of view, doing okay. Keep head elevated 45 degrees. bronchodilator. Gastric p rophylaxis, DVT prophylaxis. Will recommend attended sleep study as outpatient upon discharge. Thank you, and will follow with you. Nilsa Cabrera MD cc: [id number] TT: 05/19/2016 21:41:35 Confirmation # [id number] Dictation # [id number] jn
[2016-05-20] MEDS: Albuterol-Ipratrop 3 mg / 0.5 (3 ml) UD IH SCH ×5 (01:40→23:35)
--- NOTE | 2016-05-20 08:22 | PN ---
DATE: 05/19/2016 SUBJECTIVE: The patient was seen and examined on the bedside, having dinner. Son was also on the bedside, no change in the status. No fever, no chills. Actually ready for discharge. Subacute rehab offered, the patient refused. He wants to go home, but he has exposure of bed bugs at home. Our social workers are waiting . Meanwhile, we are treating patient in the hospital. I hope tomorrow we will make some arrangement. No fever, no chills, no headache, no dizziness. PHYSICAL EXAMINATION: VITAL SIGNS: Temperature 98.6, heart rate 95, blood pressure 135/85. HEENT: Head normocephalic, atraumatic. Eyes: PERRLA. Extraocular muscles intact. Conjunctivae pink. Eyelids unremarkable. Nose patent. Mucous membranes moist. NECK: Supple. No carotid bruit or thyromegaly. CHEST: Bilaterally symmetrical. HEART: S1, S2 positive. LUNGS: Clear to auscultation. ABDOMEN: Soft. Bowel sounds present. No organomegaly. EXTREMITIES: No edema, no cyanosis. NEUROLOGIC: The patient is awake, alert, oriented x 3 but has partial aphasia. LABORATORY DATA: White blood cells 4.4, hemoglobin 12.9, hematocrit 35.6, platelets 181. Sodium 142, potassium 3.7, BUN 9, creatinine is 0.9, chloride 105. ASSESSMENT AND PLAN: The patient is an 65-year-old male, . He came with community-acquired pneumonia, atypical chest pain as per Dr. Hein. Negative stress test, has supraventricular tachycardia, resolved. Stable on atenolol and verapamil. Echo shows ejection fraction of 55 , pleural effusion, with right-sided weakness, partial aphasia. Stress test done 05/18/16 shows suspicious of previous myocardial injury, no significant improvement noted on the test. Continue aggressive medical treatment as per cardiology. Continue verapamil, atenolol, lisinopril. I reviewed Dr. Hein's notes. I reviewed Dr. Akbar's notes also. Wells cultures had been sent. Azithromycin stopped. Started clindamycin for coverage of aspiration pneumonia. Continue Rocephin and clindamycin. Plan is to switch to p.o. upon her discharge. The patient will go home with clindamycin, Keflex as per Dr. Akbar. Physical therapy offered rehab offered, but patient is refusing. He wants to go home. Because of home situation we cannot discharge home today, waiting for the situation is clear. associated with social workers are working. Rosie Whitman MD cc: [id number] TT: 05/20/2016 01:36:10 Confirmation # [id number] Dictation # [id number] jn MTDD
[2016-05-20] MEDS: Enoxaparin 40 mg Syringe SC SCH (10:41)
[2016-05-20] MEDS: cefTRIAXone 1 gm 100 ML IVPB SCH (10:41)
[2016-05-20] MEDS: Verapamil 240 mg ER Tab PO SCH (10:41)
[2016-05-20] MEDS: Aspirin 325 mg EC Tablets PO SCH (10:41)
[2016-05-20] MEDS: Cilostazol 100 mg Tab UD PO SCH ×2 (10:42→17:39)
--- NOTE | 2016-05-20 14:01 | PN ---
DATE: 05/19/2016 REFERRING PHYSICIAN: Dr. Whitman SUBJECTIVE: The patient is lying in the bed, head at 45 degrees, feels better. No headache, no rhin itis, no nausea, no vomiting, no diarrhea. No leg pain or leg swelling. OBJECTIVE: GENERAL: No acute distress. VITAL SIGNS: Temp is 98, heart rate is 85, respiratory rate is 20, blood pressure 165/85, pulse ox 9 7% on nasal cannula. HEENT: Moist mucous membrane. Crowded airway. NECK: Supple. No JVD. LUNGS: Has a fair airflow with a few rhonchi. HEART: S1, S2. ABDOMEN: Soft, nontender. No organomegaly. EXTREMITIES: There is no edema. NEUROLOGIC: Awake, alert, follows simple commands. MEDICATIONS: He is on hydralazine 10 mg q.i.d. p.r.n., Calan SR 240 mg daily, Catapres patch 0.3 mg weekly, Cymbalta 30 mg daily, DuoNeb q. 6 hours p.r.n., Ecotrin 325 mg daily, baclofen 10 mg twice a day, Lipitor 20 mg daily, Lovenox 40 mg daily, Neurontin 800 mg q. 8 hours, Pepcid 40 mg daily, Peria ctin 4 mg daily, [place] 100 mg twice a day, Rocephin 1 gram daily, Tenormin 25 mg twice a day, verapam il 2.5 mg IV q. 6 hours p.r.n., Zestril 10 mg daily. LABORATORY DATA: Shows hemoglobin 12.1 from yesterday. No other lab is available since yesterday. IMPRESSION AND PLAN: Resolving left lower lobe pneumonia, hypertensive, cerebrovascular accident in the past, may have sleep apnea syndrome, tachycardia, improving with beta kaden and calcium channe l. Discharge planning outpatient. May benefit from attended sleep study. Continue bronchodilator. Gastric prophylaxis. Antibiotics as per infectious diseases. Fall precaution. Thank you and we will follow with you. Nilsa Cabrera MD cc: [id number] TT: 05/20/2016 14:00:58 Confirmation # [id number] Dictation # [id number] en
--- NOTE | 2016-05-20 15:44 | CP.PCM.PN ---
Subjective - Date & Time of Evaluation Date of Evaluation: 05/20/16 Time of Evaluation: 15:00 - Subjective Subjective: Infectious Disease Follow Up: May 20, 2016 65 yo male with sudden episodes of chest pain last evening primarily in the left side with shortness of breath and diaphoresis. He describes chest heaviness. 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 Imaging studies did show a RLL pneumonia. In addition, there was a question of whether bed bugs were found on the patient, he was under isolation and has been washed. RLL pneumonia may have been worsened with the residual right sided hemiparesis. Noted fever four nights ago of 101.5 F. Leukocytosis resolved. Patient appears comfortable and has no major complaints. Afebrile since. The patient appears comfortable and has no complaints. The patient refused rehab placement and want to go back to his home. 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 Objective - Vital Signs/Intake and Output Vital Signs (last 24 hours): Temp Pulse Resp BP Pulse Ox 97.7 F 85 20 165/85 H 97 05/20/16 08:38 05/20/16 10:42 05/20/16 08:38 05/20/16 10:42 05/20/16 08:38 Intake and Output: 05/20/16 05/20/16 06:59 18:59 Intake Total 1240 Output Total 1750 Balance -510 - Medications Medications: Current Medications Albuterol/Ipratropium (Duoneb 3 Mg/0.5 Mg (3 Ml) Ud) 3 ml IH [id number] [facility] Last Admin: 05/20/16 14:03 Dose: 3 ml Aspirin (Ecotrin) 325 mg PO DAILY [facility] Last Admin: 05/20/16 10:41 Dose: 325 mg Atenolol (Tenormin) 25 mg PO BID [facility] Last Admin: 05/20/16 10:42 Dose: 25 mg Atorvastatin Calcium (Lipitor) 20 mg PO DIN [facility] Last Admin: 05/19/16 18:08 Dose: 20 mg Baclofen (Lioresal) 10 mg PO BID [facility] Last Admin: 05/20/16 10:42 Dose: 10 mg Cilostazol (Pletal) 100 mg PO BID [facility] Last Admin: 05/20/16 10:42 Dose: 100 mg Clonidine HCl (Catapres-Tts3 0.3 Mg/24 Hr) 1 patch TD QWK [facility] Last Admin: 05/14/16 12:46 Dose: 1 patch Cyproheptadine HCl (Periactin) 4 mg PO DAILY [facility] Last Admin: 05/20/16 10:42 Dose: 4 mg Duloxetine HCl (Cymbalta) 30 mg PO DAILY [facility] Last Admin: 05/20/16 10:42 Dose: 30 mg Enoxaparin Sodium (Lovenox) 40 mg SC DAILY [facility] PRN Reason: Protocol Last Admin: 05/20/16 10:41 Dose: 40 mg Famotidine (Pepcid) 40 mg PO HS [facility] Last Admin: 05/19/16 21:30 Dose: 40 mg Gabapentin (Neurontin) 800 mg PO TID [facility] Last Admin: 05/20/16 14:54 Dose: 800 mg Hydralazine HCl (Apresoline) 10 mg PO QID PRN PRN Reason: for Sbp.170 & diastolic>100 Ceftriaxone Sodium (Rocephin 1 Gram Ivpb) 100 mls @ 100 mls/hr IVPB DAILY [facility] PRN Reason: Protocol Last Admin: 05/20/16 10:41 Dose: 100 mls/hr Clindamycin Phosphate 600 mg/ (Sodium Chloride) 54 mls @ 102 mls/hr IVPB Q8 [facility] PRN Reason: Protocol Last Admin: 05/20/16 14:53 Dose: 102 mls/hr Lisinopril (Zestril) 10 mg PO DAILY [facility] Last Admin: 05/20/16 10:41 Dose: 10 mg Verapamil HCl (Verapamil Inj) 2.5 mg IVP Q6H PRN PRN Reason: for Heart Rate >130 Last Admin: 05/16/16 09:34 Dose: 2.5 mg Verapamil HCl (Calan Sr Tab) 240 mg PO DAILY [facility] Last Admin: 05/20/16 10:41 Dose: 240 mg - Labs Labs: 05/19/16 07:00 05/19/16 07:00 PT 12.3 Seconds (9.9-11.8) H 05/13/16 12:30 INR 1.14 (0.93-1.08) H 05/13/16 12:30 APTT 30.5 Seconds (23.7-30.8) 05/13/16 12:30 - Constitutional Appears: Non-toxic, No Acute Distress, Chronically Ill - Head Exam Head Exam: ATRAUMATIC, NORMOCEPHALIC - Eye Exam Eye Exam: EOMI, PERRL Pupil Exam: NORMAL ACCOMODATION, PERRL - ENT Exam ENT Exam: Mucous Membranes Moist, Normal External Ear Exam, TM's Normal Bilaterally - Respiratory Exam Respiratory Exam: Decreased Breath Sounds. absent: Rales, Rhonchi, Wheezes Additional comments: decreased to minimum breath movement in right side. - Cardiovascular Exam Cardiovascular Exam: REGULAR RHYTHM, RRR, +S1, +S2 Additional comments: periods of Atrial flutter. - GI/Abdominal Exam GI & Abdominal Exam: Soft, Normal Bowel Sounds. absent: Distended, Tenderness - Extremities Exam Additional comments: right sided paralysis. - Neurological Exam Neurological Exam: Alert, Awake, CN II-XII Intact, Oriented x3 Additional comments: no sensation on the right side - Psychiatric Exam Psychiatric exam: Normal Affect, Normal Mood - Skin Skin Exam: Intact, Normal Color Assessment and Plan - Assessment and Plan (Free Text) Assessment: 65 yo male with extensive past medical history that includes hypertension, depression, CVA history with residuals of speech impediment and right sided hemiparesis, presenting with chest pain and imaging studies showing a RLL pneumonia. Patient has been started on Rocephin and Azithromycin for antibiotics treatment at this time. Supportive care. Will need repeat Chest X- ray in the next 24-48 hours for further evaluation. Wells cultures have been sent. There is a moderate leukocytosis noted yesterday that resolved today. Supportive care. The patient is otherwise awake and alert and performs functions well with his left side. Recheck CBC. Repeat cultures if he is febrile again. His initial cultures are negative at 48 hours. Urinalysis did not suggest UTI although patient was already on antibiotics when samples taken. Check X-ray Wednesday showed bibasilar infiltrates and X-ray Wednesday showed left lower lobe infiltrates. Patient went for stress test today. On Clindamycin for coverage of aspiration pneumonia. Will continue on Rocephin and Clindamycin. Can consider a switch to oral antibiotics that includes Clindamycin and Keflex for 7 additional days of treatment on discharge although would place a hard stop on antibiotics by 05/23/2016. Thank you for allowing me to participate in the care of the patient, we will follow with you.
--- NOTE | 2016-05-20 21:55 | PN ---
DATE: 05/20/2016 The patient seen and examined on the bedside, looks comfortable. Cough is getting better, shortness of breath is getting better. No fever, no chills. No headache, no dizziness. PHYSICAL EXAMINATION: VITAL SIGNS: Temperature is 98, heart rate 18 , respiratory rate 20, blood pressure 150/80 , pulse oximetry 97% on nasal cannula. HEAD: Normocephalic, atraumatic. Eyes PERRLA. Extraocular muscles intact. Conjunctivae are pink. Eyelids unremarkable. Nose patent. Mucous membranes are moist. NECK: Supple. No carotid bruit, JVD or thyromegaly. LUNGS: Has fair airflow with a few rhonchi. HEART: S1, S2 is positive. ABDOMEN: Soft, no organomegaly. EXTREMITIES: No edema, no cyanosis. NEUROLOGIC: The patient is awake, alert, follows simple commands. MEDICATIONS: Hydralazine, Calan, Catapres, Cymbalta, DuoNeb, Ecotrin, Baclofen , Lipitor, Lovenox, Neurontin, Pepcid, Periactin, Pletal, Rocephin, Tenormin, Verapamil, Zestril. LABORATORY DATA: We do not have labs today, but I reviewed old labs. ASSESSMENT AND PLAN: The patient is a 65-year-old male with resolving left lower lobe pneumonia, hypertension, history of cerebrovascular accident, sleep apnea syndrome, tachycardia. Tachycardia is getting better with beta-blockers and calcium channel blockers. PLAN: Was to send this patient to rehab, but he is refusing rehab and he wants to go back to his apartment, but we have a problem with bed bugs. According to [facility], exterminators are working on that. We do not have any proof of his apartment cleaning. We do not have safe discharge. Discharge is a problem because his apartment is not ready and he is not going to rehab. Meanwhile, patient is getting treatment and as soon as we get information that his apartment is ready, patient will go home with clindamycin and Keflex. GI and DVT prophylaxis, physical therapy. We will follow up. Rosie Whitman MD cc: [id number] TT: 05/20/2016 21:55:43 Confirmation # [id number] Dictation # [id number] mauricio GARCIA
[2016-05-21] MEDS: Albuterol-Ipratrop 3 mg / 0.5 (3 ml) UD IH SCH ×4 (02:10→20:33)
--- NOTE | 2016-05-21 02:25 | PN ---
DATE: 05/20/2016 The patient is in room 571, bed #2. REASON FOR CONSULTATION AND FOLLOWUP: Chest pain, NSVT pneumonia, shortness of breath. HISTORY OF PRESENT ILLNESS: A 65-year-old male with past medical history significant for CVA with ri ght-sided weakness, right hemiparesis, admitted with cough, uncontrolled hypertension, chest pain on coughing, had 2 episodes of SVT. The patient is on Tenormin and verapamil. SVT is now stable. The patient denies palpitation, chest pain, or shortness breath. Stress test 2 days ago was done, which is negative. PHYSICAL EXAMINATION: VITAL SIGNS: Blood pressure 126/82; earlier was 165/85, respirations 18, pulse 78. HEAD: Normocephalic. NECK: JVP low. Carotid equal. THORAX: AP diameter normal. LUNGS: Clear. CARDIOVASCULAR: S1, S2. ABDOMEN: Soft, nontender, no organomegaly. EXTREMITIES: No clubbing, no cyanosis. LABORATORY DATA: WBC 4.4, hemoglobin 12.1, hematocrit 35.6, platelets 181. Sodium 142, potassium 3. 7, BUN 9, creatinine 0.9, sugar 75, calcium 9.2. DIAGNOSES: 1. Supraventricular tachycardia, under control. 2. Pneumonia. 3. Atypical chest pain. 4. Echo showed [id number] aortic regurgitation, mild mitral regurgitation, mild tricuspid re gurgitation, ejection fraction 55%, [id number] left pleural effusion, community-acquired pneum onia, old cerebrovascular accident with right hemiparesis. PLAN: We will continue verapamil SR 240 mg p.o. daily, the patient on clindamycin 600 mg IV q. 8 eleni rs, Cymbalta 30 mg daily, aspirin 325 mg p.o. daily, Lipitor 20 mg daily, Lovenox 40 mg subQ daily, P epcid 40 mg p.o. daily, Pletal 100 mg b.i.d., Rocephin 1 gram IV daily, atenolol 25 b.i.d., lisinopri l 10 mg daily. The patient's blood pressure is still high. We will change lisinopril to 20 mg p.o. daily starting tomorrow, and we will continue to follow with you. Nilsa Castillo MD cc: [id number] TT: 05/21/2016 02:24:36 Confirmation # [id number] Dictation # [id number] vn
[2016-05-21 08:39] VITALS: RESP 20; TEMP 98
[2016-05-21] MEDS: Enoxaparin 40 mg Syringe SC SCH (10:02)
[2016-05-21] MEDS: Cilostazol 100 mg Tab UD PO SCH (10:03)
[2016-05-21] MEDS: Aspirin 325 mg EC Tablets PO SCH (10:03)
[2016-05-21] MEDS: Verapamil 240 mg ER Tab PO SCH (10:03)
[2016-05-21] MEDS: cefTRIAXone 1 gm 100 ML IVPB SCH (10:04)
--- NOTE | 2016-05-21 15:09 | CP.PCM.PN ---
Subjective - Date & Time of Evaluation Date of Evaluation: 05/21/16 Time of Evaluation: 15:03 - Subjective Subjective: Infectious Disease Follow Up: May 21, 2016 65 yo male with sudden episodes of chest pain last evening primarily in the left side with shortness of breath and diaphoresis. He describes chest heaviness. 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 Imaging studies did show a RLL pneumonia. In addition, there was a question of whether bed bugs were found on the patient, he was under isolation and has been washed. RLL pneumonia may have been worsened with the residual right sided hemiparesis. Noted fever several nights ago of 101.5 F. Leukocytosis resolved. Patient appears comfortable and has no major complaints. Afebrile since. The patient appears comfortable and has no complaints. The patient refused rehab placement and want to go back to his home. 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 Objective - Vital Signs/Intake and Output Vital Signs (last 24 hours): Temp Pulse Resp BP Pulse Ox 98 F 94 H 20 148/99 H 20 L 05/21/16 08:38 05/21/16 08:38 05/21/16 08:38 05/21/16 08:38 05/21/16 08:38 Intake and Output: 05/21/16 05/21/16 06:59 18:59 Intake Total 860 720 Output Total 750 500 Balance 110 220 - Medications Medications: Current Medications Albuterol/Ipratropium (Duoneb 3 Mg/0.5 Mg (3 Ml) Ud) 3 ml IH [id number] [facility] Last Admin: 05/21/16 13:43 Dose: 3 ml Aspirin (Ecotrin) 325 mg PO DAILY [facility] Last Admin: 05/21/16 10:03 Dose: 325 mg Atenolol (Tenormin) 25 mg PO BID [facility] Last Admin: 05/21/16 11:00 Dose: 25 mg Atorvastatin Calcium (Lipitor) 20 mg PO DIN [facility] Last Admin: 05/20/16 17:39 Dose: 20 mg Baclofen (Lioresal) 10 mg PO BID [facility] Last Admin: 05/21/16 10:03 Dose: 10 mg Cilostazol (Pletal) 100 mg PO BID [facility] Last Admin: 05/21/16 10:03 Dose: 100 mg Clonidine HCl (Catapres-Tts3 0.3 Mg/24 Hr) 1 patch TD QWK [facility] Last Admin: 05/21/16 13:38 Dose: 1 patch Cyproheptadine HCl (Periactin) 4 mg PO DAILY [facility] Last Admin: 05/21/16 10:03 Dose: 4 mg Duloxetine HCl (Cymbalta) 30 mg PO DAILY [facility] Last Admin: 05/21/16 10:03 Dose: 30 mg Enoxaparin Sodium (Lovenox) 40 mg SC DAILY [facility] PRN Reason: Protocol Last Admin: 05/21/16 10:02 Dose: 40 mg Famotidine (Pepcid) 40 mg PO HS [facility] Last Admin: 05/20/16 23:26 Dose: 40 mg Gabapentin (Neurontin) 800 mg PO TID [facility] Last Admin: 05/21/16 13:52 Dose: 800 mg Hydralazine HCl (Apresoline) 10 mg PO QID PRN PRN Reason: for Sbp.170 & diastolic>100 Ceftriaxone Sodium (Rocephin 1 Gram Ivpb) 100 mls @ 100 mls/hr IVPB DAILY [facility] PRN Reason: Protocol Last Admin: 05/21/16 10:04 Dose: 100 mls/hr Clindamycin Phosphate 600 mg/ (Sodium Chloride) 54 mls @ 102 mls/hr IVPB Q8 [facility] PRN Reason: Protocol Last Admin: 05/21/16 13:43 Dose: 102 mls/hr Lisinopril (Zestril) 20 mg PO DAILY [facility] Last Admin: 05/21/16 10:03 Dose: 20 mg Verapamil HCl (Verapamil Inj) 2.5 mg IVP Q6H PRN PRN Reason: for Heart Rate >130 Last Admin: 05/16/16 09:34 Dose: 2.5 mg Verapamil HCl (Calan Sr Tab) 240 mg PO DAILY [facility] Last Admin: 05/21/16 10:03 Dose: 240 mg - Labs Labs: 05/19/16 07:00 05/19/16 07:00 PT 12.3 Seconds (9.9-11.8) H 05/13/16 12:30 INR 1.14 (0.93-1.08) H 05/13/16 12:30 APTT 30.5 Seconds (23.7-30.8) 05/13/16 12:30 - Constitutional Appears: Non-toxic, No Acute Distress, Chronically Ill - Head Exam Head Exam: ATRAUMATIC, NORMOCEPHALIC - Eye Exam Eye Exam: EOMI, PERRL Pupil Exam: NORMAL ACCOMODATION, PERRL - ENT Exam ENT Exam: Mucous Membranes Moist, Normal External Ear Exam, TM's Normal Bilaterally - Respiratory Exam Respiratory Exam: Decreased Breath Sounds. absent: Rales, Rhonchi, Wheezes Additional comments: decreased to minimum breath movement in right side. - Cardiovascular Exam Cardiovascular Exam: REGULAR RHYTHM, RRR, +S1, +S2 Additional comments: periods of Atrial flutter. - GI/Abdominal Exam GI & Abdominal Exam: Soft, Tenderness, Normal Bowel Sounds. absent: Distended - Extremities Exam Additional comments: right sided paralysis. - Neurological Exam Neurological Exam: Alert, Awake, CN II-XII Intact, Oriented x3 Additional comments: No sensation on the right side of body. - Psychiatric Exam Psychiatric exam: Normal Affect, Normal Mood - Skin Skin Exam: Intact, Normal Color Assessment and Plan - Assessment and Plan (Free Text) Assessment: 65 yo male with extensive past medical history that includes hypertension, depression, CVA history with residuals of speech impediment and right sided hemiparesis, presenting with chest pain and imaging studies showing a RLL pneumonia. Patient has been started on Rocephin and Azithromycin for antibiotics treatment at this time. Supportive care. Will need repeat Chest X- ray in the next 24-48 hours for further evaluation. Wells cultures have been sent. There is a moderate leukocytosis noted yesterday that resolved today. Supportive care. The patient is otherwise awake and alert and performs functions well with his left side. Recheck CBC. Repeat cultures if he is febrile again. His initial cultures are negative at 48 hours. Urinalysis did not suggest UTI although patient was already on antibiotics when samples taken. Check X-ray Wednesday showed bibasilar infiltrates and X-ray Wednesday showed left lower lobe infiltrates. Patient went for stress test today. On Clindamycin for coverage of aspiration pneumonia. Will continue on Rocephin and Clindamycin. Can consider a switch to oral antibiotics that includes Clindamycin and Keflex for 7 additional days of treatment on discharge although would place a hard stop on antibiotics by 05/23/2016. Thank you for allowing me to participate in the care of the patient, we will follow with you.
--- NOTE | 2016-05-21 17:34 | CP.PCM.PN ---
Subjective - Date & Time of Evaluation Date of Evaluation: 05/21/16 Time of Evaluation: 16:30 - Subjective Subjective: Patient has decided to leave AMA for personal reasons.He is currently being treated for pneumonia. He has history of CVA many years ago,has some residual expressive aphasia and mild dysarthria and R sided weakness,but is alert,oriented x3 and is able to answer questions relevantly(answers yes/no to most questions.)He refuses to consider going the to the rehab unit. His VS are stable. He has a vp corporate development Fanny Cortes who is here and states she will be the one who will be at home when the ambulance takes him home today. She stated she will call " [facility] " to arrange for home health aides to provide services like before he came to the hospital. Patient refuses any further tests,examinations or treatment at this facility. Advised patient of the risks he is taking in leaving AMA,namely,his pneumonia could worsen,he could end up on a ventilator or could even . He was also told of the possibility of falls,fractures,head injury, including intracranial injuries leading to seizures,coma and or . When asked if he understands what he was told,he said "yes". Still wants to leave AMA. Arrangements are being made by the hospital to take him home by ambulance. Patient advised to return to ER if needed. Patient's PMD Dr Whitman is aware of his request to leave AMA.She called [facility] pharmacy to fill in his prescriptions. Total time spent on this patient:35 mins. Objective - Vital Signs/Intake and Output Vital Signs (last 24 hours): Temp Pulse Resp BP Pulse Ox 98 F 94 H 20 148/99 H 20 L 05/21/16 08:38 05/21/16 08:38 05/21/16 08:38 05/21/16 08:38 05/21/16 08:38 Intake and Output: 05/21/16 05/21/16 06:59 18:59 Intake Total 860 720 Output Total 750 500 Balance 110 220 - Medications Medications: Current Medications Albuterol/Ipratropium (Duoneb 3 Mg/0.5 Mg (3 Ml) Ud) 3 ml IH [id number] [facility] Last Admin: 05/21/16 13:43 Dose: 3 ml Aspirin (Ecotrin) 325 mg PO DAILY [facility] Last Admin: 05/21/16 10:03 Dose: 325 mg Atenolol (Tenormin) 25 mg PO BID [facility] Last Admin: 05/21/16 11:00 Dose: 25 mg Atorvastatin Calcium (Lipitor) 20 mg PO DIN [facility] Last Admin: 05/20/16 17:39 Dose: 20 mg Baclofen (Lioresal) 10 mg PO BID [facility] Last Admin: 05/21/16 10:03 Dose: 10 mg Cilostazol (Pletal) 100 mg PO BID [facility] Last Admin: 05/21/16 10:03 Dose: 100 mg Clonidine HCl (Catapres-Tts3 0.3 Mg/24 Hr) 1 patch TD QWK [facility] Last Admin: 05/21/16 13:38 Dose: 1 patch Cyproheptadine HCl (Periactin) 4 mg PO DAILY [facility] Last Admin: 05/21/16 10:03 Dose: 4 mg Duloxetine HCl (Cymbalta) 30 mg PO DAILY [facility] Last Admin: 05/21/16 10:03 Dose: 30 mg Enoxaparin Sodium (Lovenox) 40 mg SC DAILY [facility] PRN Reason: Protocol Last Admin: 05/21/16 10:02 Dose: 40 mg Famotidine (Pepcid) 40 mg PO HS [facility] Last Admin: 05/20/16 23:26 Dose: 40 mg Gabapentin (Neurontin) 800 mg PO TID [facility] Last Admin: 05/21/16 13:52 Dose: 800 mg Hydralazine HCl (Apresoline) 10 mg PO QID PRN PRN Reason: for Sbp.170 & diastolic>100 Ceftriaxone Sodium (Rocephin 1 Gram Ivpb) 100 mls @ 100 mls/hr IVPB DAILY [facility] PRN Reason: Protocol Last Admin: 05/21/16 10:04 Dose: 100 mls/hr Clindamycin Phosphate 600 mg/ (Sodium Chloride) 54 mls @ 102 mls/hr IVPB Q8 [facility] PRN Reason: Protocol Last Admin: 05/21/16 13:43 Dose: 102 mls/hr Lisinopril (Zestril) 20 mg PO DAILY [facility] Last Admin: 05/21/16 10:03 Dose: 20 mg Verapamil HCl (Verapamil Inj) 2.5 mg IVP Q6H PRN PRN Reason: for Heart Rate >130 Last Admin: 05/16/16 09:34 Dose: 2.5 mg Verapamil HCl (Calan Sr Tab) 240 mg PO DAILY [facility] Last Admin: 05/21/16 10:03 Dose: 240 mg - Labs Labs: 05/19/16 07:00 05/19/16 07:00 PT 12.3 Seconds (9.9-11.8) H 05/13/16 12:30 INR 1.14 (0.93-1.08) H 05/13/16 12:30 APTT 30.5 Seconds (23.7-30.8) 05/13/16 12:30
[2016-05-21 20:15] VITALS: BP 100/61; PULSE 65; O2SAT 95
--- NOTE | 2016-05-21 22:00 | PN ---
DATE: 05/21/2016 REFERRING PHYSICIAN: Dr. Whitman. SUBJECTIVELY: He is lying in the bed, head at 45 degree. Happy to go home. No nausea, no vomiting, diarrhea, leg pain, or leg swelling. OBJECTIVELY: No acute distress. Temp 98, heart rate 65, respiratory rate is 20, blood pressure 100/61, pulse ox 95% on room air. HENT: Moist mucous membranes. Crowded airway. NECK: Supple. No JVD. LUNGS: Has a fair airflow with few rhonchi. HEART: S1 and S2. ABDOMEN: Soft, nontender. No organomegaly. EXTREMITIES: There is no edema. NEUROLOGICALLY: Awake, alert. Follows simple commands. MEDICATIONS: Reviewed. No new changes in medication reported since yesterday. LABORATORY DATA: Reviewed. No new lab is available since yesterday. IMPRESSION AND PLAN: Resolving left lower lobe pneumonia, hypertension, cardiovascular accident in t he past, may have sleep apnea syndrome, tachypnea. Pulmonary point of view, doing much better. I agree with DC planning. Aspiration precaution. Gastr ic prophylaxis. Will benefit from outpatient attended sleep study. Thank you, and will follow with you. Nilsa Cabrera MD cc: [id number] TT: 05/21/2016 22:00:15 Confirmation # [id number] Dictation # [id number] grady
--- NOTE | 2016-05-21 23:07 | PN ---
DATE: 05/21/2016 The patient is in room 571, bed 2. REASON FOR CONSULTATION AND FOLLOWUP: SVT, pneumonia, shortness of breath, chest pain. HISTORY OF PRESENT ILLNESS: A 68-year-old male with past medical history significant for CVA with ri ght-sided weakness, admitted with cough, uncontrolled hypertension, chest pain with cough. Had 2 epi sodes of SVT. The patient lying flat in bed without chest pain, shortness of breath, palpitation. T he patient's stress test was negative. The patient, on examination: VITAL SIGNS: Blood pressure 100/61, respirations 20, pulse 65, temperature 98. HEAD: Normocephalic. EYES: Pupils normal. Conjunctivae normal. NECK: JVP low. Carotid equal. THORAX: AP diameter normal. LUNGS: Clear. CARDIOVASCULAR: S1, S2. ABDOMEN: Soft, nontender, no organomegaly. Bowel sounds normal. EXTREMITIES: No clubbing, no cyanosis. LABORATORIES: Shows WBC 4.4, hemoglobin 12.1, hematocrit 35.6, platelets 181. Sodium 142, potassium 3.7, BUN 9, creatinine 0.9, glucose is 75, calcium 9.2. Echo had shown [id number] aortic regurgitation, mild mitral regurg, and mild tricuspid regurg . Ejection fraction 55%, [id number] left pleural effusion. Community-acquired pneumonia, old CVA with right-sided hemiparesis. PLAN: To continue present therapy. SVTs under control. Will follow with you. Nilsa Castillo MD cc: [id number] TT: 05/21/2016 23:06:36 Confirmation # [id number] Dictation # [id number] jn
== END 2016-05-21 21:22 | disposition left against medical advice (07) | DRG 79 ==
LOC: ED 11:52 → ERH 17:50 → 2RSO 21:50 → 5RSO 05-18 22:23
PROVIDERS: ADMIT Internal Medicine; ATTEND Internal Medicine
PROC: 3E0F7GC Introduction of Other Therapeutic Substance into Respiratory Tract, Via Natural or Artificial Opening (ICD-10-PCS; principal; 2016-05-14)
DX: J69.0 Pneumonitis due to inhalation of food and vomit (principal); I69.351 Hemiplegia and hemiparesis following cerebral infarction affecting right dominant side; I69.320 Aphasia following cerebral infarction; I11.0 Hypertensive heart disease with heart failure; I50.9 Heart failure, unspecified; I31.3 Pericardial effusion (noninflammatory); I47.1 Supraventricular tachycardia; E83.42 Hypomagnesemia; E87.6 Hypokalemia; I08.3 Combined rheumatic disorders of mitral, aortic and tricuspid valves; R13.12 Dysphagia, oropharyngeal phase; D64.9 Anemia, unspecified; E78.5 Hyperlipidemia, unspecified; G47.30 Sleep apnea, unspecified; E78.00 Pure hypercholesterolemia, unspecified; G62.9 Polyneuropathy, unspecified; R79.89 Other specified abnormal findings of blood chemistry; F32.9 Major depressive disorder, single episode, unspecified; Z78.9 Other specified health status

== ENCOUNTER 2016-05-24 09:50 | Inpatient (IN) | payer OTHER ==
[2016-05-24 09:51] VITALS: PULSE 104
[2016-05-24 10:01] VITALS: BMI 22.0
--- NOTE | 2016-05-24 10:06 | ED PDOC ---
Arrival/HPI - General Time Seen by Provider: 05/24/16 09:52 Historian: Patient, Caregiver - History of Present Illness Narrative History of Present Illness (Text): 05/24/16 10:05 65 year old male with a past medical history that includes CVA presents to the emergency department after mechanical fall from the commode this morning. Caregiver states she found him on the floor. No loss of consciousness. She states at baseline the patient has some difficulty speaking and does not walk. Patient denies lightheadedness, dizziness, headache, back pain, or chest pain. Caregiver states that she visits the patient on weekends and "he has been weaker since yesterday". Reportedly when she found the patient on the floor he "appeared a little slower than usual". She now feels that he is back to his baseline mental status. Although the patient denies any loss of consciousness, he cannot recollect event. Another individual who identifies herself as "friend " states that he was recently discharged from the hospital after being admitted for "pneumonia". Patient denies fever or shortness of breath currently. Time/Duration: 24 hours Symptom Onset: Sudden Symptom Course: Unchanged Modifying Factors (Text): None Context: Home Past Medical History - Provider Review Nursing Documentation Reviewed: Yes - Cardiac Hx Cardiac Disorders: Yes Hx Hypertension: Yes - Pulmonary Hx Respiratory Disorders: No - Neurological HX Cerebrovascular Accident: Yes - HEENT Hx HEENT Disorder: No - Renal Hx Renal Disorder: No - Endocrine/Metabolic Hx Endocrine Disorders: No - Hematological/Oncological Hx Blood Disorders: No - Integumentary Hx Dermatological Disorder: No - Musculoskeletal/Rheumatological Hx Musculoskeletal Disorders: No Hx Falls: Yes - Gastrointestinal Hx Gastrointestinal Disorders: No - Genitourinary/Gynecological Hx Genitourinary Disorders: No - Psychiatric Hx Psychophysiologic Disorder: Yes Hx Depression: Yes Hx Substance Use: No - Surgical History Hx Abdominal Aortic Aneurysm Repair: No Family/Social History - Physician Review Nursing Documentation Reviewed: Yes Family/Social History: Unknown Family HX Smoking Status: Unknown If Ever Smoked Hx Alcohol Use: No Hx Substance Use: No Allergies/Home Meds Allergies/Adverse Reactions: Allergies No Known Allergies Allergy (Verified 05/24/16 10:00) Home Medications: Home Meds Medication Instructions Recorded Confirmed Aspirin [Ecotrin] 325 mg PO DAILY 05/13/16 05/24/16 Cyproheptadine [Periactin] 4 mg PO HS 05/13/16 05/24/16 DULoxetine [Cymbalta] 30 mg PO DAILY 05/13/16 05/24/16 Gabapentin [Neurontin] 800 mg PO TID 05/13/16 05/24/16 Metoprolol Succinate 25 mg PO DAILY 05/13/16 05/24/16 Simvastatin [Zocor] 40 mg PO HS 05/13/16 05/24/16 Baclofen [Lioresal] 10 mg PO BID 05/24/16 05/24/16 Cilostazol [Pletal] 100 mg PO BID 05/24/16 05/24/16 Clindamycin [Cleocin] 3 cap PO TID 05/24/16 05/24/16 Dicyclomine [Bentyl] 10 mg PO Q8 PRN 05/24/16 05/24/16 Multivitamin/Iron/Folic Acid 1 tab PO DAILY 05/24/16 05/24/16 [Certavite-Antioxidant Tablet] cloNIDine [Catapres] 0.1 mg PO TID 05/24/16 05/24/16 Review of Systems - Review of Systems Systems not reviewed;Unavailable: Other (residual speech deficit s/p CVA) Constitutional: Fatigue. absent: Fevers, Night Sweats Eyes: absent: Vision Changes ENT: absent: Hearing Changes, Sore Throat Respiratory: Cough. absent: SOB, Wheezing Cardiovascular: MIN. absent: Chest Pain Gastrointestinal: Appetite Changes. absent: Abdominal Pain, Nausea Genitourinary Male: absent: Hematuria Musculoskeletal: absent: Back Pain Skin: absent: Rash Neurological: Focal Weakness (baseline weakness to right side). absent: Headache, Dizziness Endocrine: Diaphoresis Psychiatric: absent: Suicidal Ideation Physical Exam - Physical Exam Narrative Physical Exam (Text): Head: Atraumatic. Normocephalic. Eyes: Denies acute visual field deficit. ENT: Mucous membranes are dry and tachy. No pharyngeal erythema or exudates, no drooling or pooling of secretions. Neck: Supple. No auscultated bruits, no soft tissue edema or erythema. Cardiovascular: Tachycardic, systolic murmur. Pulmonary/Chest: No evidence of respiratory distress. Diminished breath sounds at bases without wheezing. Abdominal: Soft and non-distended. There is no tenderness. No rebound, guarding, or rigidity. No organomegaly. Good bowel sounds. Back: No CVA tenderness. No midline tenderness. Extremities: No edema. No cyanosis. Pulses palpable and intact. Skin: Skin is warm and dry. No petechiae. No purpura. Neurological: Alert, awake, has slurred speech with mild aphasia, mild facial droop, right sided weakness. All neuro findings reportedly at baseline. Psychiatric: Good eye contact. Attentive, answers questions with yes and no and slow speech. Reports that he "doesn't want treatment" but denies suicidal ideation. 05/24/16 17:44 Vital Signs Reviewed: Yes Vital Signs Temp Pulse Resp BP Pulse Ox 05/24/16 12:00 98.8 F 103 H 16 135/85 100 05/24/16 10:03 98.6 F 117 H 17 125/70 96 05/24/16 10:00 98.8 F 115 H 16 125/70 97 Temperature: Afebrile Blood Pressure: Normal Pulse: Tachycardic Respiratory Rate: Normal Appearance: Positive for: Non-Toxic Pain Distress: None Mental Status: Positive for: other (Alert, answer questions, baseline mental status as per caregiver, follow all commands) Medical Decision Making ED Course and Treatment: Differential Diagnosis include but are not limited to: pneumonia, arrhythmia, syncope, near syncope, sepsis, depression Plan: -- CT Head, EKG, Chest x-ray -- Labs -- Reassess and disposition Prior Visits: Notes and results from previous visits were reviewed. Patient last seen in ED on 05/13/16 for chest pain and admitted for community acquired pneumonia. Progress Notes: Patient is present with two women. One identifies herself as caregiver, another identifies herself as "family friend" who is not a relative. They both feel the patient is at his baseline mental status currently. He is alert, able to answer questions appropriately. There is no new acute weakness noted. The patient is refusing any imaging or labs to be drawn, refusing EKG. I have discussed indications with the patient including rapid heartrate and several risk factors for severe underlying disease. He states he understands these risks and is refusing any treatment at this time. He identifies no family members that are available for communication. There is no power of senior trial attorney identified, although patient is able to repeat back to recommended treatment plan and repeat back to me risks of not evaluating or treating his current history and symptoms. RN Alondra present and witnessed. As per friend and caregiver he is at his baseline mental status, alert, answering questions appropritately and expresses understanding. Patient does not allow iv or imaging or labs or treatment for first two hours in ED. I consulted PES to assess for depression and competency. Patient evaluated by PES worker. Patient answering questions appropriately and continues to express understanding of stated treatment plan.. Patient now agrees to have IV drawn and lab work done. PROCEDURE: CT HEAD WITHOUT CONTRAST. Configuration Technician : Tamir Yeager MD IMPRESSION: There are no acute intracranial findings PROCEDURE: CHEST RADIOGRAPH, 1 VIEW Configuration Technician : Tamir Yeager MD IMPRESSION: Left lower lobe infiltrate obscures the diaphragmatic border 05/24/16 17:49 IV fluids given. CXR intrepretation reviewed. Pneumonia noted. Infilrate noted on prior chest xray, cannot exclude prior process that is persistent. Patient on oxygen is not hypoxic or in respiratory distress. With serial exams, continues to have no NEW focal neuro deficits. Intermittently, he appears sleepy and difficulty to arouse, although he return to conversing and at his baseline quickly. He denies allergies. IV antibiotics initiated. He is agreeable. Patient is agreeable to admission for serial exams, iv fluids, antibiotics, treatment for abnormal chest xray findings, possible pneumonia. At this time, no NEW or ACUTE neuro deficits. Prior chart and admission was reviewed. After review of chart and communication with prior admitting PMD, patient to be admitted to hospitalist service. 05/24/16 17:55 No PE noted on chest ct RECENTLY on 05/13, reading was reviewed. - Lab Interpretations Lab Results: 05/24/16 12:15 05/24/16 12:15 Lab Results 05/24/16 12:15: WBC 9.2 D, RBC 4.37, Hgb 11.7 L, Hct 35.0 L, MCV 80.1, MCH 26.8 , MCHC 33.4, RDW 14.9 H, Plt Count 242, MPV 10.7, Gran % 77.0 H, Lymph % (Auto) 9.2 L, Harlan % (Auto) 13.2 H, Eos % (Auto) 0.4 L, Baso % (Auto) 0.2, Gran # 7.11 H, Lymph # 0.9 L, Harlan # 1.2 H, Eos # 0.0, Baso # 0.02, PT 14.5 H, INR 1.34 H, APTT 31.7 H, pO2 53, VBG pH 7.34, VBG pCO2 59.0, VBG HCO3 31.8 H, VBG Total CO2 33.6 H, VBG O2 Sat (Calc) 87.9 H, VBG Base Excess 4.3 H, VBG Potassium 4.2, Glucose 141 H, Lactate 1.3, FiO2 21.0, Sodium 144.0, Potassium 4.2, Chloride 113.0 H, Carbon Dioxide 30, Anion Gap 14, BUN 18, Creatinine 1.2, Est GFR ( Amer) > 60, Est GFR (Non-Af Amer) > 60, Random Glucose 139 H, Calcium 9.9, Total Bilirubin 1.3, AST 86 H, ALT 70 H, Alkaline Phosphatase 99, Lactate Dehydrogenase 525, Total Creatine Kinase 67, Troponin I 0.03 D, Total Protein 8.2, Albumin 3.5, Globulin 4.6, Albumin/Globulin Ratio 0.8 L, Venous Blood Potassium 4.2 - RAD Interpretation Radiology Orders: 05/24/16 10:08 HEAD W/O CONTRAST [CT] Stat CHEST ONE VIEW [RAD] Stat Life Science Technical Officer: Radiologist - EKG Interpretation EKG Interpretation (Text): 05/24/16 17:49 EKG sinus tachycardia rate of 109 with later t wave changes Interpreted by ED Physician: Yes Type: 12 lead EKG - Medication Orders Current Medication Orders: Albuterol/Ipratropium (Duoneb 3 Mg/0.5 Mg (3 Ml) Ud) 3 ml IH Q6 PRN PRN Reason: Shortness of Breath Stop: 05/25/16 06:01 Aspirin (Ecotrin) 325 mg PO DAILY [facility] Atorvastatin Calcium (Lipitor) 20 mg PO HS [facility] Baclofen (Lioresal) 10 mg PO BID [facility] Cilostazol (Pletal) 100 mg PO BID [facility] Clonidine HCl (Catapres) 0.1 mg PO TID [facility] Dicyclomine HCl (Bentyl) 10 mg PO Q8 PRN PRN Reason: Other Duloxetine HCl (Cymbalta) 30 mg PO DAILY [facility] Gabapentin (Neurontin) 800 mg PO TID [facility] Sodium Chloride (Sodium Chloride 0.9%) 1,000 mls @ 100 mls/hr IV .Q10H [facility] Last Admin: 05/24/16 12:12 Dose: 100 MLS/HR eMAR Start Stop Document 05/24/16 12:12 HI (Rec: 05/24/16 12:13 [id number]) Intravenous Solution Start Date 05/24/16 Start Time 12:12 Piperacillin Sod/Tazobactam Sod (Zosyn 3.375 In Ns 100ml) 100 mls @ 200 mls/hr IVPB Q6 [facility] PRN Reason: Protocol Stop: 05/25/16 00:29 Vancomycin HCl (Vancomycin 1gm) 250 mls @ 250 mls/hr IVPB Q12 [facility] Metoprolol Succinate (Toprol Xl) 25 mg PO DAILY [facility] Multivitamins/Minerals (Therapeutic-M Tab) 1 tab PO DAILY [facility] Ondansetron HCl (Zofran Inj) 4 mg IVP Q6H PRN PRN Reason: Nausea/Vomiting Discontinued Medications Enoxaparin Sodium (Lovenox) 40 mg SC STAT [facility] PRN Reason: Protocol Stop: 05/24/16 17:10 Azithromycin (Zithromax 500mg In Ns) 250 mls @ 166.667 mls/hr IVPB STAT ST[facility] PRN Reason: Protocol Stop: 05/24/16 17:43 Ceftriaxone Sodium (Rocephin 1 Gram Ivpb) 100 mls @ 200 mls/hr IVPB ONCE ST[facility] PRN Reason: Protocol Stop: 05/24/16 16:43 Last Admin: 05/24/16 16:38 Dose: 200 MLS/HR eMAR Start Stop Document 05/24/16 16:38 HI (Rec: 05/24/16 16:38 [id number]) Intravenous Solution Start Date 05/24/16 Start Time 16:38 - Scribe Statement The provider has reviewed the documentation as recorded by the Joshua Krause Provider Scribe Attestation: All medical record entries made by the Jenniferibbob were at my direction and personally dictated by me. I have reviewed the chart and agree that the record accurately reflects my personal performance of the history, physical exam, medical decision making, and the department course for this patient. I have also personally directed, reviewed, and agree with the discharge instructions and disposition. Disposition/Present on Arrival - Present on Arrival Any Indicators Present on Arrival: No History of DVT/PE: No History of Uncontrolled Diabetes: No Urinary Catheter: No History Surgical Site Infection Following: None - Disposition Have Diagnosis and Disposition been Completed?: Yes Diagnosis: Pneumonia, Pre-syncope, Tachycardia Disposition: HOSPITALIZED Disposition Time: 16:45 Patient Plan: Admission, Telemetry Condition: SERIOUS
[2016-05-24] MEDS: Sodium Chloride 0.9% 1,000 ML IV SCH ×2 (12:12→22:01)
[2016-05-24 12:21] LABS: ADD MANUAL DIFF? NO
[2016-05-24 12:23] LABS: BASO # 0.02 K/mm3 (0.0-2.0); BASO % 0.2 % (0.0-3.0); EOS % 0.4 % (1.5-5.0); GRAN # 7.11 (1.4-6.5); LYMPH # 0.9 (1.2-3.4); LYMPH % 9.2 % (22.0-35.0); MEAN CELL VOLUME 80.1 fL (80.0-105.0); MEAN CORPUSCULAR HEMOGLOBIN 26.8 pg (25.0-35.0); MEAN CORPUSCULAR HGB CONC 33.4 g/dl (31.0-37.0); MEAN PLATELET VOLUME 10.7 fl (7.0-11.0); MONO # 1.2 (0.1-0.6); MONO % 13.2 % (1.0-6.0); PLATELET COUNT 242 10^3/uL (120.0-450.0); RED CELL DISTRIBUTION WIDTH 14.9 % (11.5-14.5); WHITE BLOOD COUNT 9.2 10^3/ul (4.5-11.0)
[2016-05-24 12:33] LABS: INR 1.34 (0.93-1.08); PARTIAL THROMBOPLASTIN TIME 31.7 Seconds (23.7-30.8)
[2016-05-24 12:34] LABS: ALB/GLOB RATIO 0.8 (1.1-1.8); ALKALINE PHOSPHATASE 99 U/L (38-133); ALT/SGPT 70 U/L (7-56); AST/SGOT 86 U/L (15-59); BILIRUBIN,TOTAL 1.3 mg/dL (0.2-1.3); BLOOD UREA NITROGEN 18 mg/dL (7-21); CALCIUM 9.9 mg/dL (8.4-10.5); CARBON DIOXIDE 30 mmol/L (21-33); CHLORIDE 105 mmol/L (98-107); GFR AFRICAN-AMERICAN > 60; GLUCOSE,RANDOM 139 mg/dL (70-110); POTASSIUM 4.2 mmol/L (3.6-5.0); SODIUM 145 mmol/L (132-148); TOTAL PROTEIN 8.2 g/dL (5.8-8.3)
[2016-05-24 12:45] LABS: VENOUS BLOOD GAS BASE EXCESS 4.3 mmol/L (0.0-2.0); VENOUS BLOOD PH 7.34 (7.32-7.43)
[2016-05-24 12:46] LABS: TROPONIN I 0.03 ng/mL
--- NOTE | 2016-05-24 13:51 | CT ---
PROCEDURE: CT HEAD WITHOUT CONTRAST. HISTORY: fall, ? syncope COMPARISON: None available. TECHNIQUE: Axial computed tomography images were obtained through the head/brain without intravenous contrast. Radiation dose: Total exam DLP = 869 mGy-cm. This CT exam was performed using one or more of the following dose reduction techniques: Automated exposure control, adjustment of the mA and/or kV according to patient size, and/or use of iterative reconstruction technique. FINDINGS: HEMORRHAGE: No intracranial hemorrhage. BRAIN: No mass effect or edema. Chronic microvascular changes are seen in the periventricular white matter. There is also chronic encephalomalacia in the left thalamus. VENTRICLES: Unremarkable. No hydrocephalus. CALVARIUM: Unremarkable. PARANASAL SINUSES: Unremarkable as visualized. No significant inflammatory changes. MASTOID AIR CELLS: Unremarkable as visualized. No inflammatory changes. OTHER FINDINGS: None. IMPRESSION: There are no acute intracranial findings
--- NOTE | 2016-05-24 13:59 | RAD ---
PROCEDURE: CHEST RADIOGRAPH, 1 VIEW HISTORY: syncope COMPARISON: 05/17/2016 FINDINGS: LUNGS: Clear. PLEURA: No pneumothorax or pleural fluid seen. CARDIOVASCULAR: There is moderate cardiomegaly. There is a retrocardiac density with obliteration of the diaphragmatic border consistent with a left lower lobe infiltrate OSSEOUS STRUCTURES: No significant abnormalities. VISUALIZED UPPER ABDOMEN: Normal. OTHER FINDINGS: None. IMPRESSION: Left lower lobe infiltrate obscures the diaphragmatic border
[2016-05-24] MEDS ORDERED: cefTRIAXone 1 gm 100 ML IVPB STA (16:14)
[2016-05-24] MEDS ORDERED: Azithromycin 500MG/NS 250ml 250 ML IVPB STA (16:14)
--- NOTE | 2016-05-24 17:08 | CP.PCM.HP ---
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 Patient fell this morning and was found by his caregiver. Patient denies losing consciousness from the fall and denies sustaining any injury from the fall. Patient is at his baseline mental status. Patient was recently admitted to [facility] for community acquired pneumonia and signed out AMA with meds sent to pharmacy. Patient denies headache , dizziness, lightheadedness, fever, chills, shortness of breath, chest pain, back pain, nausea, vomiting, or urinary symptoms. PMD: Dr. Whitman PMHx: HTN, CVA, depression Social: Admits to smoking 7 cigarettes daily, occasional alcohol use, denies other illicit drug use allergy: none Family Hx: non contributory Home Meds: bentyl, clonidine, cymbalta, asa, baclofen, metoprolol, neurotin, cilostazol, simvastatin Present on Admission - Present on Admission Any Indicators Present on Admission: No Review of Systems - Constitutional Constitutional: As Per HPI, Fatigue. absent: Chills, Fever, Headache - EENT Eyes: As Per HPI. absent: Irritation, Photophobia - Cardiovascular Cardiovascular: As Per HPI. absent: Chest Pain, Edema, Syncope - Respiratory Respiratory: As Per HPI, Cough. absent: Dyspnea - Gastrointestinal Gastrointestinal: As Per HPI. absent: Diarrhea, Nausea, Vomiting - Genitourinary Genitourinary: As Per HPI. absent: Urinary Incontinence, Urinary Frequency, Urinary Hesitance, Urinary Urgency - Musculoskeletal Musculoskeletal: As Per HPI Additional comments: right side hemiparesis - Integumentary Integumentary: As Per HPI. absent: Dry Skin, Rash, Sores - Neurological Neurological: As Per HPI. absent: Dizziness, Numbness, Syncope, Tremor - Psychiatric Psychiatric: As Per HPI. absent: Anxiety, Confusion, Irritability - Endocrine Endocrine: As Per HPI. absent: Flushing, Polydipsia, Polyphagia Past Patient History - Past Social History Smoking Status: Unknown If Ever Smoked - CARDIAC Hx Cardiac Disorders: Yes Hx Hypertension: Yes - PULMONARY Hx Respiratory Disorders: No - NEUROLOGICAL HX Cerebrovascular Accident: Yes - HEENT Hx HEENT Problems: No - RENAL Hx Chronic Kidney Disease: No - ENDOCRINE/METABOLIC Hx Endocrine Disorders: No - HEMATOLOGICAL/ONCOLOGICAL Hx Blood Disorders: No - INTEGUMENTARY Hx Dermatological Problems: No - MUSCULOSKELETAL/RHEUMATOLOGICAL Hx Musculoskeletal Disorders: No Hx Falls: Yes - GASTROINTESTINAL Hx Gastrointestinal Disorders: No - GENITOURINARY/GYNECOLOGICAL Hx Genitourinary Disorders: No - PSYCHIATRIC Hx Psychophysiologic Disorder: Yes Hx Depression: Yes Hx Substance Use: No - SURGICAL HISTORY Hx Abdominal Aortic Aneurysm Repair: No Meds Allergies/Adverse Reactions: Allergies Allergy/AdvReac Type Severity Reaction Status Date / Time No Known Allergies Allergy Verified 05/24/16 10:00 Physical Exam - Constitutional Appears: Non-toxic, No Acute Distress, Chronically Ill - Head Exam Head Exam: ATRAUMATIC, NORMOCEPHALIC - Eye Exam Eye Exam: Normal appearance, PERRL - ENT Exam ENT Exam: Mucous Membranes Moist - Neck Exam Neck exam: Positive for: Normal Inspection - Respiratory Exam Respiratory Exam: NORMAL BREATHING PATTERN. absent: Rhonchi, Wheezes, Respiratory Distress - Cardiovascular Exam Cardiovascular Exam: REGULAR RHYTHM, +S1, +S2 - GI/Abdominal Exam GI & Abdominal Exam: Normal Bowel Sounds, Soft. absent: Distended, Guarding, Rigid, Tenderness - Extremities Exam Extremities exam: Positive for: normal inspection. Negative for: joint swelling , pedal edema - Neurological Exam Neurological exam: Alert, Oriented x3 Additional comments: Patient is awake, alert, orientated to person, time and place. Patient is compete and wished to make himself DNR/DNI. - Psychiatric Exam Psychiatric exam: Normal Affect, Normal Mood - Skin Skin Exam: Dry, Warm Results - Vital Signs Recent Vital Signs: Last Vital Signs Temp 98.8 F 05/24/16 12:00 Pulse 103 H 05/24/16 12:00 Resp 16 05/24/16 12:00 BP 135/85 05/24/16 12:00 Pulse Ox 100 05/24/16 12:00 - Labs Result Diagrams: 05/24/16 12:15 05/24/16 12:15 Assessment & Plan - Assessment and Plan (Free Text) Assessment: 65 yea old male with past medical history of hypertension, CVA and depression presents to the ED after sustaining a fall at home. Patient is DNR/DNI. HCAP -Patient admitted for CAP recently and signed out AMA 3 days ago -CXR this admission showed Left lower lobe infiltrate obscures the diaphragmatic border -Afebrile, no leukocytosis -Start IV vancomycin and zosyn -Follow up Strep pneumo ag, legionella ag, procal -Follow up cultures -Duoneb Q6 prn -ID consult, Dr. Akbar help appreciated Deconditioning, s/p fall -Physical therapy eval -Refusing skilled nursing -payroll manager referral -Speech and swallow eval -Pureed nectar thick diet -Fall precaution -NS @100ml/hr CVA s/p right hemiparesis -ASA 325mg -Baclofen 10mg BID -Bentyl 10mg Q8 prn -Geo HTN -Metoprolol 25mg -Clonidine 0.1mg PO TID Depression -Cymbalta 30mg daily PVD -Cilostazol 100mg BID -Gabapentin 800mg PO TID Prophylactic measures -Lovenox for DVT ppx -Protonix for GI ppx -Zofran for nausea and vomiting -Multivitamin <Melquiades MICHAEL,Nilsa - Last Filed: 06/01/16 07:43> Results - Vital Signs Recent Vital Signs: Last Vital Signs Temp 98.6 F 05/28/16 12:00 Pulse 99 H 05/28/16 21:03 Resp 16 05/28/16 12:00 BP 152/84 H 05/28/16 21:03 Pulse Ox 91 L 05/27/16 00:01 - Labs Result Diagrams: 05/28/16 06:20 05/28/16 06:20 Attending/Attestation - Attestation I have personally seen and examined this patient.: Yes I have fully participated in the care of the patient.: Yes I have reviewed all pertinent clinical information: Yes Notes (Text): Patient was seen and examined with medical massage therapist .Agreed with resident assessment and plan. 65 yrs old male with PMH of CVA with residual right weakness,4/5,dysarthia ,SVT was recently discharged 3 days back after treatment of Pneumonia ,he was brought as he had fall at home, was found on floor by cat breeder, no new focal deficit,CT head unchanged, has left lower lobe Pneumonia likely old, started on treatment for HCAP, we will consult ID , will also consult social work nurse for disposition .Patient is refusing NH placement.He is DNR /DNI Management plan was discussed in detail with patient Education was provided.
[2016-05-24 17:09] LABS: ARTERIAL BLOOD GAS HCO3 24.9 mmol/L (21-28); ARTERIAL BLOOD GAS PH 7.37 (7.35-7.45)
[2016-05-24] MEDS ORDERED: Enoxaparin 40 mg Syringe SC STA (17:09)
[2016-05-24] MEDS ORDERED: Albuterol-Ipratrop 3 mg / 0.5 (3 ml) UD IH PRN (17:27)
[2016-05-24] MEDS: Metoprolol Succinate 25 mg XL Tab PO SCH (17:56)
[2016-05-24] MEDS ORDERED: Non Formulary Medication (Gabapentin [Neurontin] 800 MG) PO SCH (18:00)
--- NOTE | 2016-05-24 18:24 | CP.PCM.CON ---
History of Present Illness - History of Present Illness History of Present Illness: Infectious Disease Consultation: May 24, 2016 65 yo male with presentation to the hospital after being found on the floor by his caregiver. The patient has no recollection of how he came to be on the floor. The patient was recently in the hospital for sudden episodes of chest pain primarily in the left side with shortness of breath and diaphoresis. 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 Imaging studies on the last hospitalization did show a RLL pneumonia that changed to a bilateral pneumonia then to a LLL pneumonia over the course of a couple of days. In addition, there was a question of whether bed bugs were found on the patient on the last hospitalization and a question of whether his home was fumigated. The patient had fevers of 101.5 F on the last hospitalization. He refused rehab placement on the last hospitalization. PMHx: Hypertension, depression, right sided hemiparesis, CVA history PSHx: None to my knowledge Allergies: NKDA Social Hx: No tobacco, EtOH, or illicit drug use. A resident of a boarding facility. Active Medications Albuterol/Ipratropium (Duoneb 3 Mg/0.5 Mg (3 Ml) Ud) 3 ml IH Q6 PRN PRN Reason: Shortness of Breath Stop: 05/25/16 06:01 Aspirin (Ecotrin) 325 mg PO DAILY [facility] Atorvastatin Calcium (Lipitor) 20 mg PO HS [facility] Baclofen (Lioresal) 10 mg PO BID [facility] Cilostazol (Pletal) 100 mg PO BID [facility] Clonidine HCl (Catapres) 0.1 mg PO TID [facility] Dicyclomine HCl (Bentyl) 10 mg PO Q8 PRN PRN Reason: Other Duloxetine HCl (Cymbalta) 30 mg PO DAILY [facility] Gabapentin (Neurontin) 800 mg PO TID [facility] Sodium Chloride (Sodium Chloride 0.9%) 1,000 mls @ 100 mls/hr IV .Q10H [facility] Last Admin: 05/24/16 12:12 Dose: 100 mls/hr Piperacillin Sod/Tazobactam Sod (Zosyn 3.375 In Ns 100ml) 100 mls @ 200 mls/hr IVPB Q6 [facility] PRN Reason: Protocol Stop: 05/25/16 00:29 Vancomycin HCl (Vancomycin 1gm) 250 mls @ 250 mls/hr IVPB Q12 [facility] Metoprolol Succinate (Toprol Xl) 25 mg PO DAILY [facility] Last Admin: 05/24/16 17:56 Dose: 25 mg Multivitamins/Minerals (Therapeutic-M Tab) 1 tab PO DAILY [facility] Ondansetron HCl (Zofran Inj) 4 mg IVP Q6H PRN PRN Reason: Nausea/Vomiting Family Hx: None given ROS: No fevers, chills, nausea, vomiting, diarrhea, headaches, dizziness, abdominal pain, melena, hematuria, hematemesis, hematochezia, vision loss, hearing loss, loss of consciousness. Patient with chest pain, SOB, diaphoresis. Past Patient History - Past Social History Smoking Status: Unknown If Ever Smoked - CARDIAC Hx Cardiac Disorders: Yes Hx Hypertension: Yes - PULMONARY Hx Respiratory Disorders: No - NEUROLOGICAL HX Cerebrovascular Accident: Yes - HEENT Hx HEENT Problems: No - RENAL Hx Chronic Kidney Disease: No - ENDOCRINE/METABOLIC Hx Endocrine Disorders: No - HEMATOLOGICAL/ONCOLOGICAL Hx Blood Disorders: No - INTEGUMENTARY Hx Dermatological Problems: No - MUSCULOSKELETAL/RHEUMATOLOGICAL Hx Musculoskeletal Disorders: No Hx Falls: Yes - GASTROINTESTINAL Hx Gastrointestinal Disorders: No - GENITOURINARY/GYNECOLOGICAL Hx Genitourinary Disorders: No - PSYCHIATRIC Hx Psychophysiologic Disorder: Yes Hx Depression: Yes Hx Substance Use: No - SURGICAL HISTORY Hx Abdominal Aortic Aneurysm Repair: No Meds Allergies/Adverse Reactions: Allergies Allergy/AdvReac Type Severity Reaction Status Date / Time No Known Allergies Allergy Verified 05/24/16 10:00 - Medications Medications: Current Medications Albuterol/Ipratropium (Duoneb 3 Mg/0.5 Mg (3 Ml) Ud) 3 ml IH Q6 PRN PRN Reason: Shortness of Breath Stop: 05/25/16 06:01 Aspirin (Ecotrin) 325 mg PO DAILY [facility] Atorvastatin Calcium (Lipitor) 20 mg PO HS [facility] Baclofen (Lioresal) 10 mg PO BID [facility] Cilostazol (Pletal) 100 mg PO BID [facility] Clonidine HCl (Catapres) 0.1 mg PO TID [facility] Dicyclomine HCl (Bentyl) 10 mg PO Q8 PRN PRN Reason: Other Duloxetine HCl (Cymbalta) 30 mg PO DAILY [facility] Gabapentin (Neurontin) 800 mg PO TID [facility] Sodium Chloride (Sodium Chloride 0.9%) 1,000 mls @ 100 mls/hr IV .Q10H [facility] Last Admin: 05/24/16 12:12 Dose: 100 mls/hr Piperacillin Sod/Tazobactam Sod (Zosyn 3.375 In Ns 100ml) 100 mls @ 200 mls/hr IVPB Q6 [facility] PRN Reason: Protocol Stop: 05/25/16 00:29 Vancomycin HCl (Vancomycin 1gm) 250 mls @ 250 mls/hr IVPB Q12 [facility] Metoprolol Succinate (Toprol Xl) 25 mg PO DAILY [facility] Multivitamins/Minerals (Therapeutic-M Tab) 1 tab PO DAILY [facility] Ondansetron HCl (Zofran Inj) 4 mg IVP Q6H PRN PRN Reason: Nausea/Vomiting Physical Exam - Constitutional Appears: Non-toxic, No Acute Distress, Chronically Ill - Head Exam Head Exam: ATRAUMATIC, NORMOCEPHALIC - Eye Exam Eye Exam: EOMI, PERRL Pupil Exam: NORMAL ACCOMODATION, PERRL - ENT Exam ENT Exam: Mucous Membranes Moist, Normal External Ear Exam, TM's Normal Bilaterally - Neck Exam Neck exam: Positive for: Full Rom, Normal Inspection - Respiratory Exam Respiratory Exam: Clear to Auscultation Bilateral, NORMAL BREATHING PATTERN. absent: Rales, Rhonchi, Wheezes - Cardiovascular Exam Cardiovascular Exam: REGULAR RHYTHM, RRR, +S1, +S2 - GI/Abdominal Exam GI & Abdominal Exam: Normal Bowel Sounds, Soft. absent: Distended, Tenderness - Extremities Exam Additional comments: right sided paralysis. - Neurological Exam Neurological exam: Alert, CN II-XII Intact, Oriented x3 Additional comments: right sided paralysis. - Psychiatric Exam Psychiatric exam: Normal Affect, Normal Mood - Skin Skin Exam: Intact, Normal Color Results - Vital Signs Recent Vital Signs: Last Vital Signs Temp 98.8 F 05/24/16 12:00 Pulse 103 H 05/24/16 12:00 Resp 16 05/24/16 12:00 BP 135/85 05/24/16 12:00 Pulse Ox 100 05/24/16 12:00 - Labs Result Diagrams: 05/24/16 12:15 05/24/16 12:15 Labs: Laboratory Results - last 24 hr 05/24/16 17:00 pCO2 43 pO2 138.0 H HCO3 24.9 ABG pH 7.37 ABG Total CO2 26.2 ABG O2 Saturation 99.8 H ABG Base Excess -0.6 ABG Potassium 3.8 Sodium 144.0 Chloride 114.0 H Glucose 114 H Lactate 0.8 FiO2 36.0 Arterial Blood Potassium 3.8 Assessment & Plan - Assessment and Plan (Free Text) Assessment: 65 yo male with extensive past medical history that includes hypertension, depression, CVA history with residuals of speech impediment and right sided hemiparesis, presenting after being found on the floor by his caregiver. He was recently discharged back to home but he was advised strongly for rehabilitation admission due to his chronic medical issues. The patient refused suggestion for rehabilitation. Patient has been started on IV Vancomycin and Zosyn for antibiotic treatment at this time. Supportive care. X -ray of the chest shows a left lower lobe infiltrate similar to his last X-ray from the recent hospitalization at [facility]. Wells cultures have been sent. There is a no leukocytosis noted today. Supportive care. The patient is otherwise awake and alert and performs functions well with his left side. Caregiver states that the patient appears to be in his normal mood and activity. Patient has a "friend" named Fanny who also visited on his last hospitalization... she states that the patient was "a little weak" in the last day prior to this hospitalization. It was verified that the patient home was treated for bedbugs during his last hospitalization. Thank you for allowing me to participate in the care of the patient, we will follow with you.
[2016-05-24] MEDS: Cilostazol 100 mg Tab UD PO SCH (18:55)
[2016-05-24] MEDS: Piperacillin/Tazobact 3.375 gm 100 ML IVPB SCH (21:14)
[2016-05-24] MEDS: Vancomycin 1gm in NS 250ml 250 ML IVPB SCH (21:15)
[2016-05-24] MEDS ORDERED: Non Formulary Medication (Simvastatin [Zocor] 40 MG) PO SCH (22:00)
[2016-05-24] MEDS ORDERED: Vancomycin 500 mg Inj IVPB SCH (22:00)
[2016-05-25] MEDS: Piperacillin/Tazobact 3.375 gm 100 ML IVPB SCH (05:01)
[2016-05-25 06:58] LABS: ADD MANUAL DIFF? NO
[2016-05-25 07:16] LABS: BASO # 0.02 K/mm3 (0.0-2.0); BASO % 0.2 % (0.0-3.0); EOS # 0.1 (0.0-0.7); GRAN # 8.87 (1.4-6.5); GRAN % 72.1 % (50.0-68.0); HEMATOCRIT 30.2 % (42.0-52.0); LYMPH # 1.7 (1.2-3.4); LYMPH % 13.7 % (22.0-35.0); MEAN CORPUSCULAR HEMOGLOBIN 26.5 pg (25.0-35.0); MEAN CORPUSCULAR HGB CONC 32.8 g/dl (31.0-37.0); MEAN PLATELET VOLUME 11.2 fl (7.0-11.0); MONO # 1.6 (0.1-0.6); PLATELET COUNT 251 10^3/uL (120.0-450.0); RED CELL DISTRIBUTION WIDTH 15.2 % (11.5-14.5); WHITE BLOOD COUNT 12.3 10^3/ul (4.5-11.0)
[2016-05-25 07:25] LABS: ALB/GLOB RATIO 0.7 (1.1-1.8); ALKALINE PHOSPHATASE 84 U/L (38-133); ALT/SGPT 66 U/L (7-56); AST/SGOT 76 U/L (15-59); BILIRUBIN,TOTAL 0.9 mg/dL (0.2-1.3); BLOOD UREA NITROGEN 18 mg/dL (7-21); CALCIUM 8.9 mg/dL (8.4-10.5); CARBON DIOXIDE 28 mmol/L (21-33); CHLORIDE 110 mmol/L (98-107); GFR AFRICAN-AMERICAN > 60; GLUCOSE,RANDOM 107 mg/dL (70-110); POTASSIUM 3.9 mmol/L (3.6-5.0); SODIUM 147 mmol/L (132-148); TOTAL PROTEIN 7.1 g/dL (5.8-8.3)
[2016-05-25] MEDS: Sodium Chloride 0.9% 1,000 ML IV SCH (08:16)
[2016-05-25] MEDS ORDERED: IRON PO SCH (10:00)
[2016-05-25] MEDS ORDERED: [UNRECOGNIZED DRUG - OTHER] PO SCH (10:00)
[2016-05-25] MEDS ORDERED: FOLIC ACID PO SCH (10:00)
[2016-05-25] MEDS ORDERED: MULTIVITAMIN PO SCH (10:00)
[2016-05-25] MEDS: Multivitamin With Minerals Tab PO SCH (10:03)
[2016-05-25] MEDS: Aspirin 325 mg EC Tablets PO SCH (10:03)
[2016-05-25] MEDS: Metoprolol Succinate 25 mg XL Tab PO SCH (10:03)
[2016-05-25] MEDS: Vancomycin 1gm in NS 250ml 250 ML IVPB SCH ×2 (10:03→22:46)
[2016-05-25] MEDS: Cilostazol 100 mg Tab UD PO SCH ×2 (10:03→17:53)
[2016-05-25] MEDS ORDERED: Piperacillin/Tazobact 3.375 gm 100 ML IVPB STA (12:43)
--- NOTE | 2016-05-25 13:03 | CP.PCM.PN ---
<Wade Lovett - Last Filed: 05/25/16 16:55> Subjective - Date & Time of Evaluation Date of Evaluation: 05/25/16 Time of Evaluation: 07:30 - Subjective Subjective: Dr. Lovett PGY 1 Hospitalis Note Patient seen and evaluated at bedside. He denies any discomfort or pain. He states he did not pass out when he feel to the ground. He normally gets around the home in his electric wheel chair and has not fallen from it. He reports his cough and SOB improved after his prior admission. He denies any chest pain, palpitations, cough, SOB, nausea, vomiting, fevers, chills or aches. He is paralysed on the right side. Per nursing, he had a short run of v-tach early in the morning. Objective - Vital Signs/Intake and Output Vital Signs (last 24 hours): Temp Pulse Resp BP Pulse Ox 98.4 F 112 H 18 131/76 97 05/25/16 06:00 05/25/16 06:00 05/25/16 06:00 05/25/16 06:00 05/25/16 06:00 Intake and Output: 05/25/16 05/25/16 06:59 18:59 Intake Total 0 1370 Balance 0 1370 - Medications Medications: Current Medications Aspirin (Ecotrin) 325 mg PO DAILY [facility] Last Admin: 05/25/16 10:03 Dose: 325 mg Atorvastatin Calcium (Lipitor) 20 mg PO HS [facility] Last Admin: 05/24/16 22:03 Dose: 20 mg Baclofen (Lioresal) 10 mg PO BID [facility] Last Admin: 05/25/16 10:03 Dose: 10 mg Cilostazol (Pletal) 100 mg PO BID [facility] Last Admin: 05/25/16 10:03 Dose: 100 mg Clonidine HCl (Catapres) 0.1 mg PO TID [facility] Last Admin: 05/25/16 10:02 Dose: 0.1 mg Dicyclomine HCl (Bentyl) 10 mg PO Q8 PRN PRN Reason: Other Duloxetine HCl (Cymbalta) 30 mg PO DAILY [facility] Last Admin: 05/25/16 10:02 Dose: 30 mg Enoxaparin Sodium (Lovenox) 40 mg SC DAILY [facility] PRN Reason: Protocol Gabapentin (Neurontin) 800 mg PO TID [facility] Last Admin: 05/25/16 10:03 Dose: 800 mg Sodium Chloride (Sodium Chloride 0.9%) 1,000 mls @ 100 mls/hr IV .Q10H [facility] Last Admin: 05/25/16 08:16 Dose: 100 mls/hr Vancomycin HCl (Vancomycin 1gm) 250 mls @ 250 mls/hr IVPB Q12 [facility] Last Admin: 05/25/16 10:03 Dose: 250 mls/hr Piperacillin Sod/Tazobactam Sod (Zosyn 3.375 In Ns 100ml) 100 mls @ 200 mls/hr IVPB STAT STA PRN Reason: Protocol Stop: 05/25/16 13:12 Metoprolol Succinate (Toprol Xl) 25 mg PO DAILY [facility] Last Admin: 05/25/16 10:03 Dose: 25 mg Multivitamins/Minerals (Therapeutic-M Tab) 1 tab PO DAILY [facility] Last Admin: 05/25/16 10:03 Dose: 1 tab Ondansetron HCl (Zofran Inj) 4 mg IVP Q6H PRN PRN Reason: Nausea/Vomiting Verapamil HCl (Calan Sr Tab) 240 mg PO DAILY [facility] - Labs Labs: 05/25/16 06:45 05/25/16 06:45 PT 14.5 Seconds (9.9-11.8) H 05/24/16 12:15 INR 1.34 (0.93-1.08) H 05/24/16 12:15 APTT 31.7 Seconds (23.7-30.8) H 05/24/16 12:15 - Constitutional Appears: Non-toxic, No Acute Distress - Head Exam Head Exam: ATRAUMATIC, NORMOCEPHALIC - Eye Exam Eye Exam: EOMI, Normal appearance, PERRL Pupil Exam: NORMAL ACCOMODATION, PERRL - ENT Exam ENT Exam: Mucous Membranes Moist - Neck Exam Neck Exam: Normal Inspection. absent: Tenderness, Thyromegaly - Respiratory Exam Respiratory Exam: NORMAL BREATHING PATTERN. absent: Rales, Rhonchi, Wheezes - Cardiovascular Exam Cardiovascular Exam: REGULAR RHYTHM, +S1, +S2, Murmur (left sternal border grade 2) - GI/Abdominal Exam GI & Abdominal Exam: Soft, Normal Bowel Sounds. absent: Guarding, Tenderness - Exam Exam: NORMAL INSPECTION - Extremities Exam Extremities Exam: Normal Capillary Refill. absent: Pedal Edema, Tenderness - Neurological Exam Neurological Exam: Alert, Awake, Oriented x3. absent: CN II-XII Intact Neuro motor strength exam: Left Upper Extremity: 5, Right Upper Extremity: 0, Left Lower Extremity: 5, Right Lower Extremity: 0 Additional comments: right sided hemiparesis - Psychiatric Exam Psychiatric exam: Normal Affect, Normal Mood - Skin Skin Exam: Dry, Intact, Normal Color, Warm Assessment and Plan - Assessment and Plan (Free Text) Assessment: 65 yea old male with past medical history of hypertension, CVA and depression presents to the ED after sustaining a fall at home. Patient is DNR/DNI. Patient developed fever and had run of v-tach. Plan: 1) HCAP * Patient admitted for CAP recently and signed out AMA * CXR this admission showed Left lower lobe infiltrate obscures the diaphragmatic border [see full report] * ID consulted, help appreciated * Pt developed low grade fever and leukocytosis of 12.3 * Continue IV vancomycin and zosyn * Follow up Strep pneumo ag, legionella ag, * Procal wnl * Blood cultures negative * Duonebs Q6 prn 2) Deconditioning, s/p fall * Per physical therapy - patient not candidate for PT * Refusing [facility] or [facility] * systems development manager referral * Speech and swallow eval -give mechanically altered finely chopped with thin liquids. * Fall precaution * NS @100ml/hr 2) CVA * right hemiparesis * ASA 325mg * Baclofen 10mg BID * Bentyl 10mg Q8 prn * Gabapentin 800mg PO TID 3) HTN * Metoprolol 25mg * Clonidine 0.1mg PO TID 4) Depression * Cymbalta 30mg daily 5) PVD * Cilostazol 100mg BID * Gabapentin 800mg PO TID 6) Prophylactic measures * Lovenox for DVT ppx * Protonix for GI ppx * Zofran for nausea and vomiting * Multivitamin Assessment and plan discussed with attending physician. <Zelda Eaton - Last Filed: 05/25/16 17:36> Objective - Vital Signs/Intake and Output Vital Signs (last 24 hours): Temp Pulse Resp BP Pulse Ox 100.5 F H 111 H 20 175/94 H 97 05/25/16 12:00 05/25/16 12:00 05/25/16 12:00 05/25/16 12:00 05/25/16 06:00 Intake and Output: 05/25/16 05/25/16 06:59 18:59 Intake Total 0 1850 Balance 0 1850 - Medications Medications: Current Medications Aspirin (Ecotrin) 325 mg PO DAILY [facility] Last Admin: 05/25/16 10:03 Dose: 325 mg Atorvastatin Calcium (Lipitor) 20 mg PO HS [facility] Last Admin: 05/24/16 22:03 Dose: 20 mg Baclofen (Lioresal) 10 mg PO BID [facility] Last Admin: 05/25/16 10:03 Dose: 10 mg Cilostazol (Pletal) 100 mg PO BID [facility] Last Admin: 05/25/16 10:03 Dose: 100 mg Clonidine HCl (Catapres) 0.1 mg PO TID [facility] Last Admin: 05/25/16 13:13 Dose: 0.1 mg Dicyclomine HCl (Bentyl) 10 mg PO Q8 PRN PRN Reason: Other Duloxetine HCl (Cymbalta) 30 mg PO DAILY [facility] Last Admin: 05/25/16 10:02 Dose: 30 mg Enoxaparin Sodium (Lovenox) 40 mg SC DAILY [facility] PRN Reason: Protocol Gabapentin (Neurontin) 800 mg PO TID [facility] Last Admin: 05/25/16 13:13 Dose: 800 mg Sodium Chloride (Sodium Chloride 0.9%) 1,000 mls @ 100 mls/hr IV .Q10H [facility] Last Admin: 05/25/16 08:16 Dose: 100 mls/hr Vancomycin HCl (Vancomycin 1gm) 250 mls @ 250 mls/hr IVPB Q12 [facility] Last Admin: 05/25/16 10:03 Dose: 250 mls/hr Metoprolol Succinate (Toprol Xl) 25 mg PO DAILY [facility] Last Admin: 05/25/16 10:03 Dose: 25 mg Multivitamins/Minerals (Therapeutic-M Tab) 1 tab PO DAILY [facility] Last Admin: 05/25/16 10:03 Dose: 1 tab Ondansetron HCl (Zofran Inj) 4 mg IVP Q6H PRN PRN Reason: Nausea/Vomiting Verapamil HCl (Calan Sr Tab) 240 mg PO DAILY [facility] Last Admin: 05/25/16 13:13 Dose: 240 mg - Labs Labs: 05/25/16 06:45 05/25/16 06:45 PT 14.5 Seconds (9.9-11.8) H 05/24/16 12:15 INR 1.34 (0.93-1.08) H 05/24/16 12:15 APTT 31.7 Seconds (23.7-30.8) H 05/24/16 12:15 Attending/Attestation - Attestation I have personally seen and examined this patient.: Yes I have fully participated in the care of the patient.: Yes I have reviewed all pertinent clinical information, including history, physical exam and plan: Yes Notes (Text): 05/25/16 17:31 65 year old male with past medical history of hypertension, CVA and recent admission for pneumonia (recently signed out AMA last week) presented after a fall at home. He has refused rehab in the past. Currently he is still refusing rehab. PT evaluation was appreciated. He is on antibiotics for LLL pneumonia. ID is following the patient. Septic workup is ordered for fever. Procalcitonin was normal. He had run of [employer] yesterday for which cardiology consultation is requested. He is on toprol and verapramil. He is on cymbalta for history of depression. He is on aspirin and statin for history of CVA. Zelda aEton MD Hospitalist.
[2016-05-25] MEDS: Verapamil 240 mg ER Tab PO SCH (13:13)
--- NOTE | 2016-05-25 16:34 | CARD ---
APPROVED REPORT EKG Measurement Heart [id number] <Conclusion> Sinus tachycardia with premature atrial complexes Possible Left atrial enlargement Left axis deviation T wave abnormality, consider lateral ischemia Abnormal ECG
--- NOTE | 2016-05-25 18:53 | CP.PCM.PN ---
Subjective - Date & Time of Evaluation Date of Evaluation: 05/25/16 Time of Evaluation: 17:30 - Subjective Subjective: Infectious Disease Follow Up: May 25, 2016 65 yo male with presentation to the hospital after being found on the floor by his caregiver. The patient has no recollection of how he came to be on the floor. The patient was recently in the hospital for sudden episodes of chest pain primarily in the left side with shortness of breath and diaphoresis. 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 Imaging studies on the last hospitalization did show a RLL pneumonia that changed to a bilateral pneumonia then to a LLL pneumonia over the course of a couple of days. In addition, there was a question of whether bed bugs were found on the patient on the last hospitalization and a question of whether his home was fumigated. The patient had fevers of 101.5 F on the last hospitalization. He refused rehab placement on the last hospitalization. Cultures negative at 24 hours. Persistent findings in LLL on chest X-ray. Objective - Vital Signs/Intake and Output Vital Signs (last 24 hours): Temp Pulse Resp BP Pulse Ox 100.5 F H 109 H 20 127/92 H 97 05/25/16 12:00 05/25/16 17:52 05/25/16 12:00 05/25/16 17:52 05/25/16 06:00 Intake and Output: 05/25/16 05/25/16 06:59 18:59 Intake Total 0 1850 Balance 0 1850 - Medications Medications: Current Medications Aspirin (Ecotrin) 325 mg PO DAILY [facility] Last Admin: 05/25/16 10:03 Dose: 325 mg Atorvastatin Calcium (Lipitor) 20 mg PO HS [facility] Last Admin: 05/24/16 22:03 Dose: 20 mg Baclofen (Lioresal) 10 mg PO BID [facility] Last Admin: 05/25/16 17:53 Dose: 10 mg Cilostazol (Pletal) 100 mg PO BID [facility] Last Admin: 05/25/16 17:53 Dose: 100 mg Clonidine HCl (Catapres) 0.1 mg PO TID [facility] Last Admin: 05/25/16 17:53 Dose: 0.1 mg Dicyclomine HCl (Bentyl) 10 mg PO Q8 PRN PRN Reason: Other Duloxetine HCl (Cymbalta) 30 mg PO DAILY [facility] Last Admin: 05/25/16 10:02 Dose: 30 mg Enoxaparin Sodium (Lovenox) 40 mg SC DAILY [facility] PRN Reason: Protocol Gabapentin (Neurontin) 800 mg PO TID [facility] Last Admin: 05/25/16 17:52 Dose: 800 mg Sodium Chloride (Sodium Chloride 0.9%) 1,000 mls @ 100 mls/hr IV .Q10H [facility] Last Admin: 05/25/16 08:16 Dose: 100 mls/hr Vancomycin HCl (Vancomycin 1gm) 250 mls @ 250 mls/hr IVPB Q12 [facility] Last Admin: 05/25/16 10:03 Dose: 250 mls/hr Lisinopril (Zestril) 5 mg PO DAILY [facility] Metoprolol Tartrate (Lopressor) 50 mg PO BID [facility] Last Admin: 05/25/16 17:52 Dose: 50 mg Multivitamins/Minerals (Therapeutic-M Tab) 1 tab PO DAILY [facility] Last Admin: 05/25/16 10:03 Dose: 1 tab Ondansetron HCl (Zofran Inj) 4 mg IVP Q6H PRN PRN Reason: Nausea/Vomiting Verapamil HCl (Calan Sr Tab) 240 mg PO DAILY [facility] Last Admin: 05/25/16 13:13 Dose: 240 mg - Labs Labs: 05/25/16 06:45 05/25/16 06:45 PT 14.5 Seconds (9.9-11.8) H 05/24/16 12:15 INR 1.34 (0.93-1.08) H 05/24/16 12:15 APTT 31.7 Seconds (23.7-30.8) H 05/24/16 12:15 - Constitutional Appears: Non-toxic, No Acute Distress, Chronically Ill - Head Exam Head Exam: ATRAUMATIC, NORMOCEPHALIC - Eye Exam Eye Exam: EOMI, PERRL Pupil Exam: NORMAL ACCOMODATION, PERRL - ENT Exam ENT Exam: Mucous Membranes Moist, Normal External Ear Exam, TM's Normal Bilaterally - Neck Exam Neck Exam: Full ROM, Normal Inspection - Respiratory Exam Respiratory Exam: Clear to Ausculation Bilateral, NORMAL BREATHING PATTERN. absent: Rales, Rhonchi, Wheezes Additional comments: decreased breath sounds on right lung secondary to chronic hemiparesis issues. - Cardiovascular Exam Cardiovascular Exam: REGULAR RHYTHM, RRR, +S1, +S2 - GI/Abdominal Exam GI & Abdominal Exam: Soft, Normal Bowel Sounds. absent: Distended, Tenderness - Extremities Exam Additional comments: right sided paralysis. - Neurological Exam Neurological Exam: Alert, Awake, CN II-XII Intact, Oriented x3 Additional comments: right sided paralysis. - Psychiatric Exam Psychiatric exam: Normal Affect, Normal Mood - Skin Skin Exam: Intact, Normal Color Assessment and Plan - Assessment and Plan (Free Text) Assessment: 65 yo male with extensive past medical history that includes hypertension, depression, CVA history with residuals of speech impediment and right sided hemiparesis, presenting after being found on the floor by his caregiver. He was recently discharged back to home but he was advised strongly for rehabilitation admission due to his chronic medical issues. The patient refused suggestion for rehabilitation. Patient has been started on IV Vancomycin and Zosyn for antibiotic treatment at this time. Supportive care. X -ray of the chest shows a left lower lobe infiltrate similar to his last X-ray from the recent hospitalization at [facility]. Wells cultures have been sent. There is a no leukocytosis noted today. Supportive care. The patient is otherwise awake and alert and performs functions well with his left side. Caregiver states that the patient appears to be in his normal mood and activity. Patient has a "friend" named Fanny who also visited on his last hospitalization... she states that the patient was "a little weak" in the last day prior to this hospitalization. It was verified that the patient home was treated for bedbugs during his last hospitalization. Thank you for allowing me to participate in the care of the patient, we will follow with you.
[2016-05-26 06:23] LABS: ADD MANUAL DIFF? NO
[2016-05-26 06:37] LABS: BASO # 0.03 K/mm3 (0.0-2.0); BASO % 0.2 % (0.0-3.0); EOS # 0.1 (0.0-0.7); EOS % 0.7 % (1.5-5.0); GRAN # 8.72 (1.4-6.5); GRAN % 72.4 % (50.0-68.0); LYMPH # 1.4 (1.2-3.4); LYMPH % 11.9 % (22.0-35.0); MEAN CELL VOLUME 79.5 fL (80.0-105.0); MEAN CORPUSCULAR HEMOGLOBIN 26.7 pg (25.0-35.0); MEAN CORPUSCULAR HGB CONC 33.6 g/dl (31.0-37.0); MONO # 1.8 (0.1-0.6); MONO % 14.8 % (1.0-6.0); PLATELET COUNT 276 10^3/uL (120.0-450.0); RED CELL DISTRIBUTION WIDTH 14.9 % (11.5-14.5); WHITE BLOOD COUNT 12.1 10^3/ul (4.5-11.0)
[2016-05-26 06:53] LABS: ALB/GLOB RATIO 0.7 (1.1-1.8); ALKALINE PHOSPHATASE 92 U/L (38-133); ALT/SGPT 78 U/L (7-56); AST/SGOT 102 U/L (15-59); BLOOD UREA NITROGEN 11 mg/dL (7-21); CALCIUM 8.8 mg/dL (8.4-10.5); CARBON DIOXIDE 22 mmol/L (21-33); CHLORIDE 109 mmol/L (95-110); GFR AFRICAN-AMERICAN > 60; GLUCOSE,RANDOM 113 mg/dL (70-110); POTASSIUM 3.2 mmol/L (3.6-5.0); SODIUM 142 mmol/L (132-148); TOTAL PROTEIN 7.5 g/dL (5.8-8.3)
[2016-05-26] MEDS: Potassium Chloride 20 mEq 100 ML IVPB SCH ×2 (07:47→10:07)
--- NOTE | 2016-05-26 08:23 | CON ---
DATE: 05/25/2016 REASON FOR CONSULTATION: Cardiac evaluation, history of hypertension, CVA, depression. Admitted aft er a fall, rule out syncope. 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 The patient said she went to the commode and fell down. Found to be on the floor by caregiver. Denies any loss of consciousness. Denies any chest pain, shortness of breath, any palpitation. PAST HISTORY: Significant for hypertension, CVA, depression, CVA in 2001. Since then, patient has right-sided residual weakness, CVA. SOCIAL HISTORY: Denies any smoking. Denies any history of alcohol abuse. FAMILY HISTORY: Noncontributory. ALLERGIES: No known drug allergies. RECENT CARDIAC WORKUP: As follows: The patient had EKG on last admission, shows supraventricular ta chycardia, atrial flutter. The patient later on converted to normal sinus. The patient had echocard iography 05/15/2016 that shows ejection fraction 50%, [id number] aortic regurgitation, mild mi tral regurgitation, mild tricuspid regurgitation, RVSP 38, a small pericardial effusion, moderate lef t pleural effusion, no vegetation noted. Ejection fraction reported 50%. The patient had a stress t est done on 05/18/2016 that shows a probably normal myocardial perfusion study, fixed defect, no revers ible ischemia, ejection fraction 65%. REVIEW OF SYSTEMS: As per HPI. CURRENT MEDICATIONS: The patient is taking clonidine at home, simvastatin, multivitamin, metoprolol succinate, gabapentin, ____, cyproheptadine, clindamycin, cilostazol, baclofen, aspirin. ALLERGIES: No known drug allergies. REVIEW OF SYSTEMS: As per HPI. PHYSICAL EXAMINATION: As follows: VITAL SIGNS: Temperature afebrile, heart rate 111, blood pressure 175/94. HEENT: PERRLA, intact. NECK: Supple. No carotid bruits. No thyromegaly. CHEST: Clear to auscultation. HEART: S1, S2 regular. ABDOMEN: Soft. EXTREMITIES: Clubbing and cyanosis negative. Temperature 100.5. IMPRESSION: Tachycardia, afebrile, arrhythmia of 12 beats of ventricular tachycardia. Recent stress test negative. Echo shows preserved left ventricular function, [id number] aortic regurgitat ion, mild mitral regurgitation, mild tricuspid regurgitation, right ventricular systolic pressure 38. Pneumonia, hypertension, cerebrovascular accident with right-sided weakness residual. RECOMMENDATION: Increase metoprolol to 50 b.i.d. Monitor because patient goes back and forth paroxy smal atrial fib and flutter. Outpatient, is already on verapamil 240. We will change to metoprolol 50 b.i.d. and also add on, if needed, CYRUS inhibitors to control better blood pressure and also becaus e of the ____. We will follow with you. Thank you, Dr. Whitman/Dr. Lambert, for providing us the opportunity in taking care of the patient. We w ill follow with you. Nilsa Hein MD cc: [id number] TT: 05/25/2016 18:21:08 Confirmation # [id number] Dictation # [id number]
[2016-05-26] MEDS ORDERED: Potassium Chloride 20 mEq/15 ml LIQ UD PO ONE (09:11)
[2016-05-26] MEDS: Cilostazol 100 mg Tab UD PO SCH ×2 (10:05→17:42)
[2016-05-26] MEDS: Aspirin 325 mg EC Tablets PO SCH (10:05)
[2016-05-26] MEDS: Enoxaparin 40 mg Syringe SC SCH (10:05)
[2016-05-26] MEDS: Multivitamin With Minerals Tab PO SCH (10:06)
[2016-05-26] MEDS: Vancomycin 1gm in NS 250ml 250 ML IVPB SCH ×2 (10:07→22:01)
[2016-05-26] MEDS: Verapamil 240 mg ER Tab PO SCH (10:08)
--- NOTE | 2016-05-26 11:45 | PN ---
DATE: 05/26/2016 REASON FOR CONSULTATION AND FOLLOWUP: Cardiac evaluation, history of hypertension, CVA, the patient admitted after a fall, rule out syncope. 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 The patient went to the commode and fell down, found to be on the floor, but care unit brought here. Yesterday, patient had 5 beats of VT. Today this morning, the patient' s heart rate is in SVT. Denies any chest pain, shortness of breath, any palpitation. PHYSICAL EXAMINATION: VITAL SIGNS: Temperature afebrile, heart rate 100, blood pressure 146/65. HEENT: PERRLA. Extraocular muscles intact. NECK: Supple. No carotid bruits. No thyromegaly. CHEST: Clear to auscultation. HEART: S1, S2 regular. ABDOMEN: Soft. EXTREMITIES: Clubbing and cyanosis negative. BLOOD WORKUP: WBC 12.____, hemoglobin 11.____, hematocrit 33.0, platelet count 276. Chemistry shows sodium 140, potassium 3.2, chloride 109, carbon dioxide 22, anion gap of 14, BUN 11, creatinine 0.9. IMPRESSION: Hypokalemia, recurrent supraventricular tachycardia, negative stress test, preserved lef t ventricular function. Last admission the patient had a stress test that shows ejection fraction 65 %, no reversible ischemia, fixed defect. Echocardiogram shows ejection fraction 50%, moderate to sev ere aortic regurgitation, mild mitral regurgitation, mild tricuspid regurgitation. RECOMMENDATIONS: Will discontinue metoprolol. Changed to atenolol 25 b.i.d. Give IV verapamil 2.5 q. 6 hours p.r.n. for controlled rate. Continue verapamil, CYRUS inhibitor to control the blood pressu re also. Because the patient's aortic regurgitation, will start low dose of CYRUS to prevent dilatatio n of the ventricle because of severe aortic regurg. We will follow with you. Thank you, Dr. Whitman/Dr. Eaton, for providing this opportunity in taking care of the patient. Will follow with you. Will supplement potassium. Nilsa Hein MD cc: [id number] TT: 05/26/2016 11:45:04 Confirmation # [id number] Dictation # [id number] mn
[2016-05-26] MEDS ORDERED: Piperacillin/Tazobact 3.375 gm 100 ML IVPB SCH (12:00)
--- NOTE | 2016-05-26 15:36 | CP.PCM.PN ---
<Wade Lovett - Last Filed: 05/26/16 15:33> Subjective - Date & Time of Evaluation Date of Evaluation: 05/26/16 Time of Evaluation: 07:15 - Subjective Subjective: Dr. Lovett PGY 1 Hospitalist Note Patient seen and evaluated at bedside. He is resting comfortably and eating his breakfast. He currently denies any headache, chest pain, nausea, vomiting, SOB, weakness, abdominal pain, or dysuria. He states he would like to go home soon. Per nursing, he had another run of V-tach on the monitor over night and continues to have fevers. Patient is being seen by cardiology and infectious disease. Objective - Vital Signs/Intake and Output Vital Signs (last 24 hours): Temp Pulse Resp BP Pulse Ox 100.5 F H 151 H 20 135/84 96 05/26/16 12:00 05/26/16 11:43 05/26/16 12:00 05/26/16 12:00 05/26/16 05:57 Intake and Output: 05/26/16 05/26/16 06:59 18:59 Intake Total 1770 300 Output Total 400 Balance 1370 300 - Medications Medications: Current Medications Aspirin (Ecotrin) 325 mg PO DAILY [facility] Last Admin: 05/26/16 10:05 Dose: 325 mg Atenolol (Tenormin) 25 mg PO BID [facility] Atorvastatin Calcium (Lipitor) 20 mg PO HS [facility] Last Admin: 05/25/16 22:46 Dose: 20 mg Baclofen (Lioresal) 10 mg PO BID [facility] Last Admin: 05/26/16 10:06 Dose: 10 mg Cilostazol (Pletal) 100 mg PO BID [facility] Last Admin: 05/26/16 10:05 Dose: 100 mg Clonidine HCl (Catapres) 0.1 mg PO TID [facility] Last Admin: 05/26/16 10:06 Dose: 0.1 mg Dicyclomine HCl (Bentyl) 10 mg PO Q8 PRN PRN Reason: Other Duloxetine HCl (Cymbalta) 30 mg PO DAILY [facility] Last Admin: 05/26/16 10:06 Dose: 30 mg Enoxaparin Sodium (Lovenox) 40 mg SC DAILY [facility] PRN Reason: Protocol Last Admin: 05/26/16 10:05 Dose: 40 mg Gabapentin (Neurontin) 800 mg PO TID [facility] Last Admin: 05/26/16 10:06 Dose: 800 mg Sodium Chloride (Sodium Chloride 0.9%) 1,000 mls @ 100 mls/hr IV .Q10H [facility] Last Admin: 05/25/16 08:16 Dose: 100 mls/hr Vancomycin HCl (Vancomycin 1gm) 250 mls @ 250 mls/hr IVPB Q12 [facility] Last Admin: 05/26/16 10:07 Dose: 250 mls/hr Cefepime HCl (Maxipime 1gm) 100 mls @ 100 mls/hr IVPB Q12 [facility] PRN Reason: Protocol Metronidazole (Flagyl) 100 mls @ 100 mls/hr IVPB Q8 [facility] PRN Reason: Protocol Lisinopril (Zestril) 5 mg PO DAILY [facility] Last Admin: 05/26/16 10:05 Dose: 5 mg Multivitamins/Minerals (Therapeutic-M Tab) 1 tab PO DAILY [facility] Last Admin: 05/26/16 10:06 Dose: 1 tab Ondansetron HCl (Zofran Inj) 4 mg IVP Q6H PRN PRN Reason: Nausea/Vomiting Verapamil HCl (Calan Sr Tab) 240 mg PO DAILY [facility] Last Admin: 05/26/16 10:08 Dose: 240 mg Verapamil HCl (Verapamil Inj) 2.5 mg IVP Q6H PRN PRN Reason: Fopr Heart rate >130 - Labs Labs: 05/26/16 06:00 05/26/16 06:00 PT 14.5 Seconds (9.9-11.8) H 05/24/16 12:15 INR 1.34 (0.93-1.08) H 05/24/16 12:15 APTT 31.7 Seconds (23.7-30.8) H 05/24/16 12:15 - Constitutional Appears: Non-toxic, No Acute Distress - Head Exam Head Exam: ATRAUMATIC, NORMOCEPHALIC - Eye Exam Eye Exam: EOMI, Normal appearance, PERRL Pupil Exam: NORMAL ACCOMODATION, PERRL - ENT Exam ENT Exam: Mucous Membranes Moist, Normal Exam - Neck Exam Neck Exam: Normal Inspection - Respiratory Exam Respiratory Exam: Clear to Ausculation Bilateral, NORMAL BREATHING PATTERN. absent: Rales, Rhonchi, Wheezes - Cardiovascular Exam Cardiovascular Exam: REGULAR RHYTHM, +S1, +S2. absent: Gallop, Rubs, Murmur - GI/Abdominal Exam GI & Abdominal Exam: Soft, Normal Bowel Sounds. absent: Tenderness, Rebound - Extremities Exam Extremities Exam: Normal Capillary Refill. absent: Normal Inspection (right sided hemiparesis), Pedal Edema, Tenderness - Back Exam Back Exam: absent: rash noted, tenderness - Neurological Exam Neurological Exam: Alert, Awake, Oriented x3. absent: CN II-XII Intact (right sided facial droop, slurred spech) - Psychiatric Exam Psychiatric exam: Normal Affect, Normal Mood - Skin Skin Exam: Dry, Intact, Normal Color, Warm Assessment and Plan - Assessment and Plan (Free Text) Assessment: 65 yea old male with past medical history of hypertension, CVA and depression presents to the ED after sustaining a fall at home. Patient is DNR/DNI. Patient developed fever and had run of v-tach. Plan: 1) HCAP * Patient admitted for CAP recently and signed out AMA * CXR this admission showed Left lower lobe infiltrate obscures the diaphragmatic border [see full report] * ID consulted, help appreciated * Pt continues to have low grade fevers and leukocytosis of 12.1 today * Per ID, continue vancomycin and stop zosyn * Start Cefepime 1 gm Q12H and Flagyl 500mg Q8H * Follow up Strep pneumo ag, legionella ag, * Procal wnl * Blood cultures negative * Repeat urine and sputum cultures * Duonebs Q6 prn 2) Deconditioning, s/p fall * Per physical therapy - patient not candidate for PT * Refusing [facility] or [facility] * unit trust manager referral * Speech and swallow eval -give mechanically altered finely chopped with thin liquids. * Fall precaution * NS @100ml/hr 2) Tachycardia * Cardiology consulted, help appreciated * Metoprolol switched to atenolol 25 bid * As per cardiology give Verapamil 2.5 Q6H prn * Continue Verapamil 240mg PO daily * Start on Zestril 5mg PO daily 3) CVA * right hemiparesis * ASA 325mg * Baclofen 10mg BID * Bentyl 10mg Q8 prn * Gabapentin 800mg PO TID 4) Electrolyte abnormalities * Potassium 3.2 this morning * replenish as needed 5) HTN * Atenolol 25 mg BID * Metoprolol stopped * Clonidine 0.1mg PO TID 6) Depression * Cymbalta 30mg daily 7) PVD * Cilostazol 100mg BID * Gabapentin 800mg PO TID 8) Prophylactic measures * Lovenox for DVT ppx * Protonix for GI ppx * Zofran for nausea and vomiting * Multivitamin Assessment and plan discussed with attending physician. <Zelda Eaton - Last Filed: 05/26/16 16:05> Objective - Vital Signs/Intake and Output Vital Signs (last 24 hours): Temp Pulse Resp BP Pulse Ox 100.5 F H 120 H 20 135/84 96 05/26/16 12:00 05/26/16 15:37 05/26/16 12:00 05/26/16 15:37 05/26/16 05:57 Intake and Output: 05/26/16 05/26/16 06:59 18:59 Intake Total 1770 300 Output Total 400 Balance 1370 300 - Medications Medications: Current Medications Aspirin (Ecotrin) 325 mg PO DAILY [facility] Last Admin: 05/26/16 10:05 Dose: 325 mg Atenolol (Tenormin) 25 mg PO BID [facility] Atorvastatin Calcium (Lipitor) 20 mg PO HS [facility] Last Admin: 05/25/16 22:46 Dose: 20 mg Baclofen (Lioresal) 10 mg PO BID [facility] Last Admin: 05/26/16 10:06 Dose: 10 mg Cilostazol (Pletal) 100 mg PO BID [facility] Last Admin: 05/26/16 10:05 Dose: 100 mg Clonidine HCl (Catapres) 0.1 mg PO TID [facility] Last Admin: 05/26/16 15:37 Dose: 0.1 mg Dicyclomine HCl (Bentyl) 10 mg PO Q8 PRN PRN Reason: Other Duloxetine HCl (Cymbalta) 30 mg PO DAILY [facility] Last Admin: 05/26/16 10:06 Dose: 30 mg Enoxaparin Sodium (Lovenox) 40 mg SC DAILY [facility] PRN Reason: Protocol Last Admin: 05/26/16 10:05 Dose: 40 mg Gabapentin (Neurontin) 800 mg PO TID [facility] Last Admin: 05/26/16 15:36 Dose: 800 mg Sodium Chloride (Sodium Chloride 0.9%) 1,000 mls @ 100 mls/hr IV .Q10H [facility] Last Admin: 05/25/16 08:16 Dose: 100 mls/hr Vancomycin HCl (Vancomycin 1gm) 250 mls @ 250 mls/hr IVPB Q12 [facility] Last Admin: 05/26/16 10:07 Dose: 250 mls/hr Cefepime HCl (Maxipime 1gm) 100 mls @ 100 mls/hr IVPB Q12 [facility] PRN Reason: Protocol Metronidazole (Flagyl) 100 mls @ 100 mls/hr IVPB Q8 [facility] PRN Reason: Protocol Last Admin: 05/26/16 15:50 Dose: 100 mls/hr Lisinopril (Zestril) 5 mg PO DAILY [facility] Last Admin: 05/26/16 10:05 Dose: 5 mg Multivitamins/Minerals (Therapeutic-M Tab) 1 tab PO DAILY [facility] Last Admin: 05/26/16 10:06 Dose: 1 tab Ondansetron HCl (Zofran Inj) 4 mg IVP Q6H PRN PRN Reason: Nausea/Vomiting Verapamil HCl (Calan Sr Tab) 240 mg PO DAILY [facility] Last Admin: 05/26/16 10:08 Dose: 240 mg Verapamil HCl (Verapamil Inj) 2.5 mg IVP Q6H PRN PRN Reason: Fopr Heart rate >130 - Labs Labs: 05/26/16 06:00 05/26/16 06:00 PT 14.5 Seconds (9.9-11.8) H 05/24/16 12:15 INR 1.34 (0.93-1.08) H 05/24/16 12:15 APTT 31.7 Seconds (23.7-30.8) H 05/24/16 12:15 Attending/Attestation - Attestation I have personally seen and examined this patient.: Yes I have fully participated in the care of the patient.: Yes I have reviewed all pertinent clinical information, including history, physical exam and plan: Yes Notes (Text): 05/26/16 16:00 65 year old male with past medical history of hypertension, CVA and recent admission for pneumonia (recently signed out AMA last week) presented after a fall at home. He has refused rehab in the past as well as the present time. He was seen by PT yesterday who has signed off. He is on antibiotics for LLL pneumonia. He continues to have fever (tmax of 100.5 today). ID is following the patient and his antibiotics were switched his zosyn to cefepime and added flagyl. Will follow up on septic workup. Procalcitonin was normal. He continues to have episodes of tachyarrythmia. He is being followed by cardiology. He metoprolol was switched to atenolol and he is also on verapramil. Elevated elevated noted; possibly due to antibiotics. Will continue to monitor closely and check hepatitis panel. He is on aspirin and statin for history of CVA. He is on cymbalta for history of depression. Will replete and repeat potassium. Zelda Eaton MD Hospitalist.
[2016-05-26] MEDS: metroNIDAZOLE IV 500 mg/100 ml 100 ML IVPB SCH ×2 (15:50→22:00)
--- NOTE | 2016-05-26 17:17 | CP.PCM.PN ---
Subjective - Date & Time of Evaluation Date of Evaluation: 05/26/16 Time of Evaluation: 15:00 - Subjective Subjective: Infectious Disease Follow Up: May 26, 2016 65 yo male with presentation to the hospital after being found on the floor by his caregiver. The patient has no recollection of how he came to be on the floor. The patient was recently in the hospital for sudden episodes of chest pain primarily in the left side with shortness of breath and diaphoresis. 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 Imaging studies on the last hospitalization did show a RLL pneumonia that changed to a bilateral pneumonia then to a LLL pneumonia over the course of a couple of days. In addition, there was a question of whether bed bugs were found on the patient on the last hospitalization and a question of whether his home was fumigated. The patient had fevers of 101.5 F on the last hospitalization. He refused rehab placement on the last hospitalization. Cultures negative at 48 hours. Persistent findings in LLL on chest X-ray. Multiple low grade fevers. No specific new findings on imaging studies. no new specific findings on exam. Objective - Vital Signs/Intake and Output Vital Signs (last 24 hours): Temp Pulse Resp BP Pulse Ox 100.5 F H 120 H 20 135/84 96 05/26/16 12:00 05/26/16 15:37 05/26/16 12:00 05/26/16 15:37 05/26/16 05:57 Intake and Output: 05/26/16 05/26/16 06:59 18:59 Intake Total 1770 300 Output Total 400 Balance 1370 300 - Medications Medications: Current Medications Aspirin (Ecotrin) 325 mg PO DAILY [facility] Last Admin: 05/26/16 10:05 Dose: 325 mg Atenolol (Tenormin) 25 mg PO BID [facility] Atorvastatin Calcium (Lipitor) 20 mg PO HS [facility] Last Admin: 05/25/16 22:46 Dose: 20 mg Baclofen (Lioresal) 10 mg PO BID [facility] Last Admin: 05/26/16 10:06 Dose: 10 mg Cilostazol (Pletal) 100 mg PO BID [facility] Last Admin: 05/26/16 10:05 Dose: 100 mg Clonidine HCl (Catapres) 0.1 mg PO TID [facility] Last Admin: 05/26/16 15:37 Dose: 0.1 mg Dicyclomine HCl (Bentyl) 10 mg PO Q8 PRN PRN Reason: Other Duloxetine HCl (Cymbalta) 30 mg PO DAILY [facility] Last Admin: 05/26/16 10:06 Dose: 30 mg Enoxaparin Sodium (Lovenox) 40 mg SC DAILY [facility] PRN Reason: Protocol Last Admin: 05/26/16 10:05 Dose: 40 mg Gabapentin (Neurontin) 800 mg PO TID [facility] Last Admin: 05/26/16 15:36 Dose: 800 mg Sodium Chloride (Sodium Chloride 0.9%) 1,000 mls @ 100 mls/hr IV .Q10H [facility] Last Admin: 05/25/16 08:16 Dose: 100 mls/hr Vancomycin HCl (Vancomycin 1gm) 250 mls @ 250 mls/hr IVPB Q12 [facility] Last Admin: 05/26/16 10:07 Dose: 250 mls/hr Cefepime HCl (Maxipime 1gm) 100 mls @ 100 mls/hr IVPB Q12 [facility] PRN Reason: Protocol Metronidazole (Flagyl) 100 mls @ 100 mls/hr IVPB Q8 [facility] PRN Reason: Protocol Last Admin: 05/26/16 15:50 Dose: 100 mls/hr Lisinopril (Zestril) 5 mg PO DAILY [facility] Last Admin: 05/26/16 10:05 Dose: 5 mg Multivitamins/Minerals (Therapeutic-M Tab) 1 tab PO DAILY [facility] Last Admin: 05/26/16 10:06 Dose: 1 tab Ondansetron HCl (Zofran Inj) 4 mg IVP Q6H PRN PRN Reason: Nausea/Vomiting Verapamil HCl (Calan Sr Tab) 240 mg PO DAILY [facility] Last Admin: 05/26/16 10:08 Dose: 240 mg Verapamil HCl (Verapamil Inj) 2.5 mg IVP Q6H PRN PRN Reason: Fopr Heart rate >130 - Labs Labs: 05/26/16 06:00 05/26/16 06:00 PT 14.5 Seconds (9.9-11.8) H 05/24/16 12:15 INR 1.34 (0.93-1.08) H 05/24/16 12:15 APTT 31.7 Seconds (23.7-30.8) H 05/24/16 12:15 - Constitutional Appears: Non-toxic, No Acute Distress, Chronically Ill - Head Exam Head Exam: ATRAUMATIC, NORMOCEPHALIC - Eye Exam Eye Exam: EOMI, PERRL Pupil Exam: NORMAL ACCOMODATION, PERRL - ENT Exam ENT Exam: Mucous Membranes Moist, Normal External Ear Exam, TM's Normal Bilaterally - Neck Exam Neck Exam: Full ROM, Normal Inspection - Respiratory Exam Respiratory Exam: Clear to Ausculation Bilateral, NORMAL BREATHING PATTERN. absent: Rales, Rhonchi, Wheezes Additional comments: decreased breath sounds on right lung secondary to chronic hemiparesis issues. - Cardiovascular Exam Cardiovascular Exam: REGULAR RHYTHM, RRR, +S1, +S2 - GI/Abdominal Exam GI & Abdominal Exam: Soft, Normal Bowel Sounds. absent: Distended, Tenderness - Extremities Exam Additional comments: right sided paralysis. - Neurological Exam Neurological Exam: Alert, Awake, CN II-XII Intact, Oriented x3 Additional comments: right sided paralysis. - Psychiatric Exam Psychiatric exam: Normal Affect, Normal Mood - Skin Skin Exam: Intact, Normal Color Assessment and Plan - Assessment and Plan (Free Text) Assessment: 65 yo male with extensive past medical history that includes hypertension, depression, CVA history with residuals of speech impediment and right sided hemiparesis, presenting after being found on the floor by his caregiver. He was recently discharged back to home but he was advised strongly for rehabilitation admission due to his chronic medical issues. The patient refused suggestion for rehabilitation. Patient has been started on IV Vancomycin and Zosyn for antibiotic treatment at this time. Supportive care. X -ray of the chest shows a left lower lobe infiltrate similar to his last X-ray from the recent hospitalization at [facility]. Wells cultures have been sent. There is a no leukocytosis noted today. Supportive care. The patient is otherwise awake and alert and performs functions well with his left side. Caregiver states that the patient appears to be in his normal mood and activity. Patient has a "friend" named Fanny who also visited on his last hospitalization... she states that the patient was "a little weak" in the last day prior to this hospitalization. It was verified that the patient home was treated for bedbugs during his last hospitalization. The patient is having low grade fevers the past 24 hours now. No specific findings found. Thank you for allowing me to participate in the care of the patient, we will follow with you.
[2016-05-26] MEDS: Cefepime 1gm in NS 100ml 100 ML IVPB SCH (22:00)
[2016-05-26] MEDS: Sodium Chloride 0.9% 1,000 ML IV SCH (22:02)
[2016-05-27 01:35] VITALS: O2SAT 91
[2016-05-27] MEDS: metroNIDAZOLE IV 500 mg/100 ml 100 ML IVPB SCH ×3 (06:54→22:17)
[2016-05-27] MEDS: Sodium Chloride 0.9% 1,000 ML IV SCH ×2 (07:00→12:01)
[2016-05-27 07:47] LABS: ADD MANUAL DIFF? NO
[2016-05-27 07:58] LABS: BASO # 0.05 K/mm3 (0.0-2.0); BASO % 0.4 % (0.0-3.0); EOS # 0.1 (0.0-0.7); GRAN # 9.69 (1.4-6.5); GRAN % 74.2 % (50.0-68.0); HEMATOCRIT 31.5 % (42.0-52.0); LYMPH # 1.2 (1.2-3.4); LYMPH % 9.4 % (22.0-35.0); MEAN CELL VOLUME 79.1 fL (80.0-105.0); MEAN CORPUSCULAR HEMOGLOBIN 26.4 pg (25.0-35.0); MEAN CORPUSCULAR HGB CONC 33.3 g/dl (31.0-37.0); MEAN PLATELET VOLUME 11.3 fl (7.0-11.0); PLATELET COUNT 310 10^3/uL (120.0-450.0); RED CELL DISTRIBUTION WIDTH 15.1 % (11.5-14.5); WHITE BLOOD COUNT 13.1 10^3/ul (4.5-11.0)
[2016-05-27 08:12] LABS: ALB/GLOB RATIO 0.7 (1.1-1.8); ALKALINE PHOSPHATASE 92 U/L (38-133); ALT/SGPT 67 U/L (7-56); AST/SGOT 79 U/L (15-59); BLOOD UREA NITROGEN 11 mg/dL (7-21); CALCIUM 8.9 mg/dL (8.4-10.5); CARBON DIOXIDE 24 mmol/L (21-33); CHLORIDE 111 mmol/L (95-110); GFR AFRICAN-AMERICAN > 60; GLUCOSE,RANDOM 100 mg/dL (70-110); MAGNESIUM 1.7 mg/dL (1.7-2.2); PHOSPHOROUS 2.7 mg/dL (2.5-4.5); POTASSIUM 3.5 mmol/L (3.6-5.0); SODIUM 144 mmol/L (132-148); TOTAL PROTEIN 7.1 g/dL (5.8-8.3)
[2016-05-27] MEDS ORDERED: Potassium Chloride 20 mEq ER Tab PO ONE (09:04)
[2016-05-27] MEDS ORDERED: Magnesium Oxide 400 mg Tab UD PO STA (09:23)
[2016-05-27] MEDS: Enoxaparin 40 mg Syringe SC SCH (09:27)
[2016-05-27] MEDS: Cilostazol 100 mg Tab UD PO SCH ×2 (09:28→17:56)
[2016-05-27] MEDS: Multivitamin With Minerals Tab PO SCH (09:28)
[2016-05-27] MEDS: Aspirin 325 mg EC Tablets PO SCH (09:28)
[2016-05-27] MEDS: Cefepime 1gm in NS 100ml 100 ML IVPB SCH ×2 (09:30→22:18)
[2016-05-27] MEDS: Vancomycin 1gm in NS 250ml 250 ML IVPB SCH ×2 (09:31→22:18)
--- NOTE | 2016-05-27 09:34 | PN ---
DATE: 05/27/2016 REASON FOR CONSULTATION: Cardiac evaluation, history of hypertension, CVA, admitted after a fall, ru le out syncope, paroxysmal A-fib. SVT. BRIEF CLINICAL HISTORY: A 65-year-old male with past medical history significant for hypertension, C VA, right upper extremity and lower extremity weakness, recently discharged, readmitted after a fall. Previous admission with pneumonia and arrhythmia. Night before, the patient had 10 beats of VT. T he patient was in SVT. Medication was changed and now patient is in normal sinus. PHYSICAL EXAMINATION: VITAL SIGNS: Temperature afebrile, heart rate 92, blood pressure 134/81. HEENT: PERRLA. Extraocular muscles intact. NECK: Supple. No carotid bruits. No thyromegaly. CHEST: Clear to auscultation. HEART: S1, S2 regular. ABDOMEN: Soft. EXTREMITIES: Clubbing and cyanosis negative. LABORATORY DATA: Blood workup as follows: WBC 13.9, hemoglobin 10.5, hematocrit 31.5, platelet coun t 310. Chemistry shows sodium 144, potassium 3.5, chloride 101, carbon dioxide 24, anion gap of 13, BUN 11, creatinine 0.9. IMPRESSION: Supraventricular tachycardia, 10 beats of ventricular tachycardia, history of pneumonia, history of cerebrovascular accident, status post fall, right-sided weakness. Recent stress test neg ative for ischemia. Recent echo shows ejection fraction 50%, moderate to severe aortic regurgitation , mild to moderate mitral regurgitation, mild tricuspid regurgitation. Recent stress test on last ad mission shows ejection fraction 65%, no reversible ischemia. RECOMMENDATION: Yesterday, metoprolol was discontinued, started on Tenormin. If tolerates, we will increase to 50 b.i.d. Continue verapamil 240 mg daily. We will start low dose of CYRUS inhibitors as well to prevent ventricular ____ moderate to severe aortic regurgitation. We will discontinue teleme try, discharge planning. Thank you, Dr. Eaton, for providing the opportunity in taking care of the patient. Nilsa Hein MD cc:Zelda Eaton MD [id number] TT: 05/27/2016 09:34:00 Confirmation # [id number] Dictation # [id number] tn
[2016-05-27] MEDS: Verapamil 240 mg ER Tab PO SCH (09:36)
--- NOTE | 2016-05-27 15:54 | CP.PCM.PN ---
<Wade Lovett - Last Filed: 05/27/16 15:49> Subjective - Date & Time of Evaluation Date of Evaluation: 05/27/16 Time of Evaluation: 07:30 - Subjective Subjective: Dr. Lovett PGY 1 Hospitalist Note Patient seen and evaluated at bedside. He was resting comfortably in bed awaiting breakfast. He currently denies any chest pain, SOB, cough, wheeze, abdominal pain, dysuria, diarrhea, or constipation. We discussed his recurrent fevers and tachycardia. He denies feeling feverish or having chills or palpitations. He has no other complaints at this time. Objective - Vital Signs/Intake and Output Vital Signs (last 24 hours): Temp Pulse Resp BP Pulse Ox 98.1 F 96 H 20 155/90 H 91 L 05/27/16 12:00 05/27/16 14:34 05/27/16 12:00 05/27/16 14:34 05/27/16 00:01 Intake and Output: 05/27/16 05/27/16 06:59 18:59 Intake Total 2640 300 Balance 2640 300 - Medications Medications: Current Medications Acetaminophen (Tylenol 325mg Tab) 650 mg PO Q4H PRN PRN Reason: Fever >100.4 F Last Admin: 05/26/16 17:42 Dose: 650 mg Aspirin (Ecotrin) 325 mg PO DAILY [facility] Last Admin: 05/27/16 09:28 Dose: 325 mg Atenolol (Tenormin) 25 mg PO BID [facility] Last Admin: 05/27/16 09:28 Dose: 25 mg Atorvastatin Calcium (Lipitor) 20 mg PO HS [facility] Last Admin: 05/26/16 22:02 Dose: 20 mg Baclofen (Lioresal) 10 mg PO BID [facility] Last Admin: 05/27/16 09:28 Dose: 10 mg Cilostazol (Pletal) 100 mg PO BID [facility] Last Admin: 05/27/16 09:28 Dose: 100 mg Clonidine HCl (Catapres) 0.1 mg PO TID [facility] Last Admin: 05/27/16 14:34 Dose: 0.1 mg Dicyclomine HCl (Bentyl) 10 mg PO Q8 [facility] PRN Reason: Other Duloxetine HCl (Cymbalta) 30 mg PO DAILY [facility] Last Admin: 05/27/16 09:28 Dose: 30 mg Enoxaparin Sodium (Lovenox) 40 mg SC DAILY [facility] PRN Reason: Protocol Last Admin: 05/27/16 09:27 Dose: 40 mg Gabapentin (Neurontin) 800 mg PO TID [facility] Last Admin: 05/27/16 14:33 Dose: 800 mg Sodium Chloride (Sodium Chloride 0.9%) 1,000 mls @ 100 mls/hr IV .Q10H [facility] Last Admin: 05/27/16 12:01 Dose: 100 mls/hr Vancomycin HCl (Vancomycin 1gm) 250 mls @ 250 mls/hr IVPB Q12 [facility] Last Admin: 05/27/16 09:31 Dose: 250 mls/hr Cefepime HCl (Maxipime 1gm) 100 mls @ 100 mls/hr IVPB Q12 [facility] PRN Reason: Protocol Last Admin: 05/27/16 09:30 Dose: 100 mls/hr Metronidazole (Flagyl) 100 mls @ 100 mls/hr IVPB Q8 [facility] PRN Reason: Protocol Last Admin: 05/27/16 14:34 Dose: 100 mls/hr Lisinopril (Zestril) 5 mg PO DAILY [facility] Last Admin: 05/27/16 09:29 Dose: 5 mg Multivitamins/Minerals (Therapeutic-M Tab) 1 tab PO DAILY [facility] Last Admin: 05/27/16 09:28 Dose: 1 tab Ondansetron HCl (Zofran Inj) 4 mg IVP Q6H [facility]N PRN Reason: Nausea/Vomiting Verapamil HCl (Calan Sr Tab) 240 mg PO DAILY [facility] Last Admin: 05/27/16 09:36 Dose: 240 mg Verapamil HCl (Verapamil Inj) 2.5 mg IVP Q6H PRN PRN Reason: Fopr Heart rate >130 - Labs Labs: 05/27/16 06:30 05/27/16 06:30 PT 14.5 Seconds (9.9-11.8) H 05/24/16 12:15 INR 1.34 (0.93-1.08) H 05/24/16 12:15 APTT 31.7 Seconds (23.7-30.8) H 05/24/16 12:15 - Constitutional Appears: Non-toxic, No Acute Distress, Older Than Stated Age - Head Exam Head Exam: ATRAUMATIC, NORMOCEPHALIC - Eye Exam Eye Exam: EOMI, Normal appearance, PERRL Pupil Exam: NORMAL ACCOMODATION, PERRL - ENT Exam ENT Exam: Mucous Membranes Moist. absent: Normal Exam (right sided facial droop ) - Neck Exam Neck Exam: Normal Inspection. absent: Tenderness - Respiratory Exam Respiratory Exam: Clear to Ausculation Bilateral, NORMAL BREATHING PATTERN. absent: Rales, Rhonchi, Wheezes - Cardiovascular Exam Cardiovascular Exam: REGULAR RHYTHM, +S1, +S2 - GI/Abdominal Exam GI & Abdominal Exam: Soft, Normal Bowel Sounds. absent: Tenderness - Extremities Exam Extremities Exam: absent: Normal Inspection (right sided weakness), Pedal Edema , Tenderness - Back Exam Back Exam: NORMAL INSPECTION. absent: rash noted, tenderness - Neurological Exam Neurological Exam: Alert, Awake, CN II-XII Intact, Oriented x3 - Psychiatric Exam Psychiatric exam: Normal Affect, Normal Mood - Skin Skin Exam: Dry, Intact, Warm Assessment and Plan - Assessment and Plan (Free Text) Assessment: 65 year old male with past medical history of hypertension, CVA and depression presents to the ED after sustaining a fall at home. Patient is DNR/DNI. Patient developed fevers and had runs of v-tach. Cardiology and infectious disease consulted. He is positive for Hepatitis C. Plan: 1) HCAP * Patient admitted for CAP recently and signed out AMA * CXR this admission showed Left lower lobe infiltrate obscures the diaphragmatic border [see full report] * ID consulted, help appreciated * Pt continues to have low grade fevers and leukocytosis of 13.1 today * Per ID, continue vancomycin * Continue Cefepime 1 gm Q12H and Flagyl 500mg Q8H * Follow up Strep pneumo ag, legionella ag, * Procal wnl * Blood cultures negative * Awaiting repeat urine and sputum cultures * Duonebs Q6 prn 2) Deconditioning, s/p fall * Per physical therapy - patient not candidate for PT * Refusing [facility] or [facility] * process safety manager referral * Speech and swallow eval -give mechanically altered finely chopped with thin liquids. * Fall precaution * NS @100ml/hr 2) Tachycardia * Improved today * Cardiology consulted, help appreciated * Continue atenolol 25 bid * As per cardiology give Verapamil 2.5 Q6H prn * Continue Verapamil 240mg PO daily * Continue Zestril 5mg PO daily 3) CVA * right hemiparesis * ASA 325mg * Baclofen 10mg BID * Bentyl 10mg Q8 prn * Gabapentin 800mg PO TID 4) Electrolyte abnormalities * Potassium 3.5 this morning * Mag 1.7 this morning * replenish as needed 5) HTN * Atenolol 25 mg BID * Metoprolol stopped * Clonidine 0.1mg PO TID 6) Depression * Cymbalta 30mg daily 7) PVD * Cilostazol 100mg BID * Gabapentin 800mg PO TID 8) Hep C * Patient positive for Hep C * will refer to [facility] for treatment 9) Prophylactic measures * Lovenox for DVT ppx * Protonix for GI ppx * Zofran for nausea and vomiting * Multivitamin Assessment and plan discussed with attending physician. <Zelda Eaton - Last Filed: 05/27/16 16:30> Objective - Vital Signs/Intake and Output Vital Signs (last 24 hours): Temp Pulse Resp BP Pulse Ox 98.1 F 96 H 20 155/90 H 91 L 05/27/16 12:00 05/27/16 14:34 05/27/16 12:00 05/27/16 14:34 05/27/16 00:01 Intake and Output: 05/27/16 05/27/16 06:59 18:59 Intake Total 2640 300 Balance 2640 300 - Medications Medications: Current Medications Acetaminophen (Tylenol 325mg Tab) 650 mg PO Q4H PRN PRN Reason: Fever >100.4 F Last Admin: 05/26/16 17:42 Dose: 650 mg Aspirin (Ecotrin) 325 mg PO DAILY [facility] Last Admin: 05/27/16 09:28 Dose: 325 mg Atenolol (Tenormin) 25 mg PO BID [facility] Last Admin: 05/27/16 09:28 Dose: 25 mg Atorvastatin Calcium (Lipitor) 20 mg PO HS [facility] Last Admin: 05/26/16 22:02 Dose: 20 mg Baclofen (Lioresal) 10 mg PO BID [facility] Last Admin: 05/27/16 09:28 Dose: 10 mg Cilostazol (Pletal) 100 mg PO BID [facility] Last Admin: 05/27/16 09:28 Dose: 100 mg Clonidine HCl (Catapres) 0.1 mg PO TID [facility] Last Admin: 05/27/16 14:34 Dose: 0.1 mg Dicyclomine HCl (Bentyl) 10 mg PO Q8 PRN PRN Reason: Other Duloxetine HCl (Cymbalta) 30 mg PO DAILY [facility] Last Admin: 05/27/16 09:28 Dose: 30 mg Enoxaparin Sodium (Lovenox) 40 mg SC DAILY [facility] PRN Reason: Protocol Last Admin: 05/27/16 09:27 Dose: 40 mg Gabapentin (Neurontin) 800 mg PO TID [facility] Last Admin: 05/27/16 14:33 Dose: 800 mg Sodium Chloride (Sodium Chloride 0.9%) 1,000 mls @ 100 mls/hr IV .Q10H [facility] Last Admin: 05/27/16 12:01 Dose: 100 mls/hr Vancomycin HCl (Vancomycin 1gm) 250 mls @ 250 mls/hr IVPB Q12 [facility] Last Admin: 05/27/16 09:31 Dose: 250 mls/hr Cefepime HCl (Maxipime 1gm) 100 mls @ 100 mls/hr IVPB Q12 [facility] PRN Reason: Protocol Last Admin: 05/27/16 09:30 Dose: 100 mls/hr Metronidazole (Flagyl) 100 mls @ 100 mls/hr IVPB Q8 [facility] PRN Reason: Protocol Last Admin: 05/27/16 14:34 Dose: 100 mls/hr Lisinopril (Zestril) 5 mg PO DAILY [facility] Last Admin: 05/27/16 09:29 Dose: 5 mg Multivitamins/Minerals (Therapeutic-M Tab) 1 tab PO DAILY [facility] Last Admin: 05/27/16 09:28 Dose: 1 tab Ondansetron HCl (Zofran Inj) 4 mg IVP Q6H PRN PRN Reason: Nausea/Vomiting Verapamil HCl (Calan Sr Tab) 240 mg PO DAILY [facility] Last Admin: 05/27/16 09:36 Dose: 240 mg Verapamil HCl (Verapamil Inj) 2.5 mg IVP Q6H PRN PRN Reason: Fopr Heart rate >130 - Labs Labs: 05/27/16 06:30 05/27/16 06:30 PT 14.5 Seconds (9.9-11.8) H 05/24/16 12:15 INR 1.34 (0.93-1.08) H 04/09/17 12:15 APTT 31.7 Seconds (23.7-30.8) H 05/24/16 12:15 Attending/Attestation - Attestation I have personally seen and examined this patient.: Yes I have fully participated in the care of the patient.: Yes I have reviewed all pertinent clinical information, including history, physical exam and plan: Yes Notes (Text): 05/27/16 16:26 65 year old male with past medical history of hypertension, CVA and recent admission for pneumonia (recently signed out AMA last week) who presented after a fall at home. He has refused rehab in the past as well as the present time. He was seen by PT yesterday who has signed off. He is on antibiotics for LLL pneumonia. Tmax was 101.7 yesterday evening. Antibiotics were adjusted as per ID recommendations. Will follow up on septic workup. Procalcitonin was normal. Cardiology is following the patient for tachyarrythmias. He is on atenolol and verapramil. Elevated LFTs are improving. He is positive for Hep C. Recommend to follow up at [facility] hepatitis clinic. He is on aspirin and statin for history of CVA. He is on cymbalta for history of depression. Will replete and repeat potassium. Possible d/c planning in 24-48 hrs if patient remains afebrile. Zelda Eaton MD Hospitalist.
--- NOTE | 2016-05-27 16:45 | CP.PCM.PN ---
Subjective - Date & Time of Evaluation Date of Evaluation: 05/27/16 Time of Evaluation: 15:00 - Subjective Subjective: Infectious Disease Follow Up: May 27, 2016 65 yo male with presentation to the hospital after being found on the floor by his caregiver. The patient has no recollection of how he came to be on the floor. The patient was recently in the hospital for sudden episodes of chest pain primarily in the left side with shortness of breath and diaphoresis. 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 Imaging studies on the last hospitalization did show a RLL pneumonia that changed to a bilateral pneumonia then to a LLL pneumonia over the course of a couple of days. In addition, there was a question of whether bed bugs were found on the patient on the last hospitalization and a question of whether his home was fumigated. The patient had fevers of 101.5 F on the last hospitalization. He refused rehab placement on the last hospitalization. Cultures negative at 48 hours. Persistent findings in LLL on chest X-ray. Multiple low grade fevers. No specific new findings on imaging studies. no new specific findings on exam. Febrile last night. Still mild leukocytosis. Low temperatures today. Cultures to date are negative. Objective - Vital Signs/Intake and Output Vital Signs (last 24 hours): Temp Pulse Resp BP Pulse Ox 98.1 F 96 H 20 155/90 H 91 L 05/27/16 12:00 05/27/16 14:34 05/27/16 12:00 05/27/16 14:34 05/27/16 00:01 Intake and Output: 05/27/16 05/27/16 06:59 18:59 Intake Total 2640 300 Balance 2640 300 - Medications Medications: Current Medications Acetaminophen (Tylenol 325mg Tab) 650 mg PO Q4H PRN PRN Reason: Fever >100.4 F Last Admin: 05/26/16 17:42 Dose: 650 mg Aspirin (Ecotrin) 325 mg PO DAILY [facility] Last Admin: 05/27/16 09:28 Dose: 325 mg Atenolol (Tenormin) 25 mg PO BID [facility] Last Admin: 05/27/16 09:28 Dose: 25 mg Atorvastatin Calcium (Lipitor) 20 mg PO HS [facility] Last Admin: 05/26/16 22:02 Dose: 20 mg Baclofen (Lioresal) 10 mg PO BID [facility] Last Admin: 05/27/16 09:28 Dose: 10 mg Cilostazol (Pletal) 100 mg PO BID [facility] Last Admin: 05/27/16 09:28 Dose: 100 mg Clonidine HCl (Catapres) 0.1 mg PO TID [facility] Last Admin: 05/27/16 14:34 Dose: 0.1 mg Dicyclomine HCl (Bentyl) 10 mg PO Q8 PRN PRN Reason: Other Duloxetine HCl (Cymbalta) 30 mg PO DAILY [facility] Last Admin: 05/27/16 09:28 Dose: 30 mg Enoxaparin Sodium (Lovenox) 40 mg SC DAILY [facility] PRN Reason: Protocol Last Admin: 05/27/16 09:27 Dose: 40 mg Gabapentin (Neurontin) 800 mg PO TID [facility] Last Admin: 05/27/16 14:33 Dose: 800 mg Sodium Chloride (Sodium Chloride 0.9%) 1,000 mls @ 100 mls/hr IV .Q10H [facility] Last Admin: 05/27/16 12:01 Dose: 100 mls/hr Vancomycin HCl (Vancomycin 1gm) 250 mls @ 250 mls/hr IVPB Q12 [facility] Last Admin: 05/27/16 09:31 Dose: 250 mls/hr Cefepime HCl (Maxipime 1gm) 100 mls @ 100 mls/hr IVPB Q12 [facility] PRN Reason: Protocol Last Admin: 05/27/16 09:30 Dose: 100 mls/hr Metronidazole (Flagyl) 100 mls @ 100 mls/hr IVPB Q8 [facility] PRN Reason: Protocol Last Admin: 05/27/16 14:34 Dose: 100 mls/hr Lisinopril (Zestril) 5 mg PO DAILY [facility] Last Admin: 05/27/16 09:29 Dose: 5 mg Multivitamins/Minerals (Therapeutic-M Tab) 1 tab PO DAILY [facility] Last Admin: 05/27/16 09:28 Dose: 1 tab Ondansetron HCl (Zofran Inj) 4 mg IVP Q6H PRN PRN Reason: Nausea/Vomiting Verapamil HCl (Calan Sr Tab) 240 mg PO DAILY [facility] Last Admin: 05/27/16 09:36 Dose: 240 mg Verapamil HCl (Verapamil Inj) 2.5 mg IVP Q6H PRN PRN Reason: Fopr Heart rate >130 - Labs Labs: 05/27/16 06:30 05/27/16 06:30 PT 14.5 Seconds (9.9-11.8) H 05/24/16 12:15 INR 1.34 (0.93-1.08) H 05/24/16 12:15 APTT 31.7 Seconds (23.7-30.8) H 05/24/16 12:15 - Constitutional Appears: Non-toxic, No Acute Distress, Chronically Ill - Head Exam Head Exam: ATRAUMATIC, NORMOCEPHALIC - Eye Exam Eye Exam: EOMI, PERRL Pupil Exam: NORMAL ACCOMODATION, PERRL - ENT Exam ENT Exam: Mucous Membranes Moist, Normal External Ear Exam, TM's Normal Bilaterally - Neck Exam Neck Exam: Full ROM, Normal Inspection - Respiratory Exam Respiratory Exam: Clear to Ausculation Bilateral, NORMAL BREATHING PATTERN. absent: Rales, Rhonchi, Wheezes - Cardiovascular Exam Cardiovascular Exam: REGULAR RHYTHM, RRR, +S1, +S2 - GI/Abdominal Exam GI & Abdominal Exam: Soft, Normal Bowel Sounds. 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 He was recently discharged back to home but he was advised strongly for rehabilitation admission due to his chronic medical issues. The patient refused suggestion for rehabilitation. Patient has been started on IV Vancomycin and Zosyn for antibiotic treatment at this time. Supportive care. X -ray of the chest shows a left lower lobe infiltrate similar to his last X-ray from the recent hospitalization at [facility] [place]. Wells cultures have been sent. There is a no leukocytosis noted today. Supportive care. The patient is otherwise awake and alert and performs functions well with his left side. Caregiver states that the patient appears to be in his normal mood and activity. Patient has a "friend" named Fanny who also visited on his last hospitalization... she states that the patient was "a little weak" in the last day prior to this hospitalization. It was verified that the patient home was treated for bedbugs during his last hospitalization. The patient is having low grade fevers the past 24 hours now. No specific findings found. Would repeat blood and urine cultures on this patient. Temperature reached up to 101.7 F. Thank you for allowing me to participate in the care of the patient, we will follow with you.
[2016-05-28 02:14] LABS: URINE BILIRUBIN NEGATIVE (NEGATIVE); URINE BLOOD NEGATIVE (NEGATIVE); URINE GLUCOSE (UA) NEGATIVE (NEGATIVE); URINE KETONE TRACE mg/dL (NEGATIVE); URINE LEUKOCYTE ESTERASE NEGATIVE Leu/uL (NEGATIVE); URINE PROTEIN TRACE mg/dL (<30 mg/dL); URINE UROBILINOGEN 0.2 E.U./dL (<1 E.U./dL)
[2016-05-28 02:15] LABS: URINE APPEARANCE SLIGHT-CLOUDY (CLEAR); URINE COLOR YELLOW (YELLOW)
[2016-05-28 02:32] LABS: URINE EPITHELIAL CELLS 0 - 2 /hpf (0-5); URINE RBC 0 - 2 /hpf (0-2); URINE WBC 0 - 2 /hpf (0-6)
[2016-05-28 02:34] LABS: URINE AMORPHOUS SEDIMENT FEW; URINE BACTERIA RARE (NEG)
[2016-05-28] MEDS: metroNIDAZOLE IV 500 mg/100 ml 100 ML IVPB SCH ×2 (06:42→16:59)
[2016-05-28] MEDS: Sodium Chloride 0.9% 1,000 ML IV SCH (06:44)
[2016-05-28 06:52] LABS: ADD MANUAL DIFF? NO
[2016-05-28 07:11] LABS: ALB/GLOB RATIO 0.7 (1.1-1.8); ALKALINE PHOSPHATASE 79 U/L (38-133); ALT/SGPT 61 U/L (7-56); AST/SGOT 60 U/L (15-59); BILIRUBIN,TOTAL 0.9 mg/dL (0.2-1.3); BLOOD UREA NITROGEN 11 mg/dL (7-21); CALCIUM 8.8 mg/dL (8.4-10.5); CARBON DIOXIDE 22 mmol/L (21-33); CHLORIDE 111 mmol/L (98-107); GFR AFRICAN-AMERICAN > 60; GLUCOSE,RANDOM 92 mg/dL (70-110); MAGNESIUM 1.7 mg/dL (1.7-2.2); PHOSPHOROUS 2.7 mg/dL (2.5-4.5); POTASSIUM 3.8 mmol/L (3.6-5.0); SODIUM 143 mmol/L (132-148)
[2016-05-28 07:18] LABS: BASO # 0.05 K/mm3 (0.0-2.0); BASO % 0.5 % (0.0-3.0); EOS # 0.2 (0.0-0.7); EOS % 2.3 % (1.5-5.0); GRAN # 7.03 (1.4-6.5); GRAN % 71.5 % (50.0-68.0); HEMATOCRIT 30.7 % (42.0-52.0); LYMPH # 1.2 (1.2-3.4); MEAN CELL VOLUME 77.9 fL (80.0-105.0); MEAN CORPUSCULAR HEMOGLOBIN 26.1 pg (25.0-35.0); MEAN CORPUSCULAR HGB CONC 33.6 g/dl (31.0-37.0); MEAN PLATELET VOLUME 11.2 fl (7.0-11.0); MONO # 1.4 (0.1-0.6); MONO % 13.7 % (1.0-6.0); PLATELET COUNT 338 10^3/uL (120.0-450.0); RED CELL DISTRIBUTION WIDTH 14.8 % (11.5-14.5); WHITE BLOOD COUNT 9.8 10^3/ul (4.5-11.0)
[2016-05-28] MEDS: Cefepime 1gm in NS 100ml 100 ML IVPB SCH (10:28)
[2016-05-28] MEDS: Vancomycin 1gm in NS 250ml 250 ML IVPB SCH (10:28)
[2016-05-28] MEDS: Cilostazol 100 mg Tab UD PO SCH (10:29)
[2016-05-28] MEDS: Enoxaparin 40 mg Syringe SC SCH (10:29)
[2016-05-28] MEDS: Aspirin 325 mg EC Tablets PO SCH (10:30)
[2016-05-28] MEDS: Verapamil 240 mg ER Tab PO SCH (10:31)
[2016-05-28] MEDS: Multivitamin With Minerals Tab PO SCH (10:34)
[2016-05-28 12:40] VITALS: RESP 16; TEMP 98.6
--- NOTE | 2016-05-28 14:44 | CP.PCM.DIS ---
<Wade Lovett - Last Filed: 05/30/16 16:02> Provider - Provider Date of Admission: 05/24/16 16:36 Attending physician: Zelda Eaton MD Primary care physician: Rosie Whitman MD Consults: Dr. Wilman Hein Time Spent in preparation of Discharge (in minutes): 35 Hospital Course - Lab Results Lab Results: Micro Results 05/27/16 16:30 Urine,Catheterized Urine Culture - Final No Growth (<1,000 CFU/ML) Most Recent Lab Values WBC 9.8 10^3/ul (4.5-11.0) D 05/28/16 06:20 RBC 3.94 10^6/uL (3.5-6.1) 05/28/16 06:20 Hgb 10.3 gm/dL (14.0-18.0) L 05/28/16 06:20 Hct 30.7 % (42.0-52.0) L 05/28/16 06:20 MCV 77.9 fL (80.0-105.0) L 05/28/16 06:20 MCH 26.1 pg (25.0-35.0) 05/28/16 06:20 MCHC 33.6 g/dl (31.0-37.0) 05/28/16 06:20 RDW 14.8 % (11.5-14.5) H 05/28/16 06:20 Plt Count 338 10^3/uL (120.0-450.0) 05/28/16 06:20 MPV 11.2 fl (7.0-11.0) H 05/28/16 06:20 Gran % 71.5 % (50.0-68.0) H 05/28/16 06:20 Lymph % (Auto) 12.0 % (22.0-35.0) L 05/28/16 06:20 [place] % (Auto) 13.7 % (1.0-6.0) H 05/28/16 06:20 Eos % (Auto) 2.3 % (1.5-5.0) 05/28/16 06:20 Baso % (Auto) 0.5 % (0.0-3.0) 05/28/16 06:20 Gran # 7.03 (1.4-6.5) H 05/28/16 06:20 Lymph # 1.2 (1.2-3.4) 05/28/16 06:20 [place] # 1.4 (0.1-0.6) H 05/28/16 06:20 Eos # 0.2 (0.0-0.7) 05/28/16 06:20 Baso # 0.05 K/mm3 (0.0-2.0) 05/28/16 06:20 PT 14.5 Seconds (9.9-11.8) H 05/24/16 12:15 INR 1.34 (0.93-1.08) H 05/24/16 12:15 APTT 31.7 Seconds (23.7-30.8) H 05/24/16 12:15 pCO2 43 mm/Hg (35-45) 05/24/16 17:00 pO2 138.0 mm/Hg (80-100) H 05/24/16 17:00 HCO3 24.9 mmol/L (21-28) 05/24/16 17:00 ABG pH 7.37 (7.35-7.45) 05/24/16 17:00 ABG Total CO2 26.2 mmol.L (22-28) 05/24/16 17:00 ABG O2 Saturation 99.8 % (95-98) H 05/24/16 17:00 ABG Base Excess -0.6 mmol/L (-2.0-3.0) 05/24/16 17:00 ABG Potassium 3.8 mmol/L (3.6-5.2) 05/24/16 17:00 VBG pH 7.34 (7.32-7.43) 05/24/16 12:15 VBG pCO2 59.0 (40-60) 05/24/16 12:15 VBG HCO3 31.8 mmol/l (21-28) H 05/24/16 12:15 VBG Total CO2 33.6 mmol.L (22-28) H 05/24/16 12:15 VBG O2 Sat (Calc) 87.9 % (40-65) H 05/24/16 12:15 VBG Base Excess 4.3 mmol/L (0.0-2.0) H 05/24/16 12:15 VBG Potassium 4.2 mmol/L (3.6-5.2) 05/24/16 12:15 Sodium 144.0 mmol/L (132-148) 05/24/16 17:00 Chloride 114.0 mmol/L (98-107) H 05/24/16 17:00 Glucose 114 mg/dl (75-110) H 05/24/16 17:00 Lactate 0.8 mmol/L (0.7-2.1) 05/24/16 17:00 FiO2 36.0 % 05/24/16 17:00 Sodium 143 mmol/L (132-148) 05/28/16 06:20 Potassium 3.8 mmol/L (3.6-5.0) 05/28/16 06:20 Chloride 111 mmol/L (98-107) H 05/28/16 06:20 Carbon Dioxide 22 mmol/L (21-33) 05/28/16 06:20 Anion Gap 14 (10-20) 05/28/16 06:20 BUN 11 mg/dL (7-21) 05/28/16 06:20 Creatinine 0.9 mg/dL (0.5-1.4) 05/28/16 06:20 Est GFR ( Amer) > 60 05/28/16 06:20 Est GFR (Non-Af Amer) > 60 05/28/16 06:20 POC Glucose (mg/dL) 158 mg/dL (65-110) H 05/24/16 12:04 Random Glucose 92 mg/dL (70-110) 05/28/16 06:20 Calcium 8.8 mg/dL (8.4-10.5) 05/28/16 06:20 Phosphorus 2.7 mg/dL (2.5-4.5) 05/28/16 06:20 Magnesium 1.7 mg/dL (1.7-2.2) 05/28/16 06:20 Total Bilirubin 0.9 mg/dL (0.2-1.3) 05/28/16 06:20 AST 60 U/L (15-59) H 05/28/16 06:20 ALT 61 U/L (7-56) H 05/28/16 06:20 Alkaline Phosphatase 79 U/L (38-133) 05/28/16 06:20 Lactate Dehydrogenase 525 U/L (333-699) 05/24/16 12:15 Total Creatine Kinase 67 U/L (35-230) 05/24/16 12:15 Troponin I 0.03 ng/mL D 05/24/16 12:15 Total Protein 7.0 g/dL (5.8-8.3) 05/28/16 06:20 Albumin 2.8 g/dL (3.0-4.8) L 05/28/16 06:20 Globulin 4.1 gm/dL 05/28/16 06:20 Albumin/Globulin Ratio 0.7 (1.1-1.8) L 05/28/16 06:20 Procalcitonin 0.19 NG/ML (0.19-0.49) 05/24/16 12:15 Arterial Blood Potassium 3.8 mmol/L (3.6-5.2) 05/24/16 17:00 Venous Blood Potassium 4.2 mmol/L (3.6-5.2) 05/24/16 12:15 Urine Color Yellow (YELLOW) 05/27/16 16:30 Urine Appearance Slight-cloudy (CLEAR) 05/27/16 16:30 Urine pH 6.0 (4.7-8.0) 05/27/16 16:30 Ur Specific Vista >= 1.030 (1.005-1.035) 05/27/16 16:30 Urine Protein Trace mg/dL (<30 mg/dL) H 05/27/16 16:30 Urine Glucose (UA) Negative mg/dL (NEGATIVE) 05/27/16 16:30 Urine Ketones Trace mg/dL (NEGATIVE) H 05/27/16 16:30 Urine Blood Negative (NEGATIVE) 05/27/16 16:30 Urine Nitrate Negative (NEGATIVE) 05/27/16 16:30 Urine Bilirubin Negative (NEGATIVE) 05/27/16 16:30 Urine Urobilinogen 0.2 E.U./dL (<1 E.U./dL) 05/27/16 16:30 Ur Leukocyte Esterase Negative Dwayne/uL (NEGATIVE) 05/27/16 16:30 Urine RBC 0 - 2 /hpf (0-2) 05/27/16 16:30 Urine WBC 0 - 2 /hpf (0-6) 05/27/16 16:30 Ur Epithelial Cells 0 - 2 /hpf (0-5) 05/27/16 16:30 Amorphous Sediment Few 05/27/16 16:30 Urine Bacteria Rare (NEG) 05/27/16 16:30 Hepatitis A IgM Ab Negative (NEGATIVE) 05/26/16 06:22 Hep Bs Antigen Negative (NEGATIVE) 05/26/16 06:22 Hep B Core IgM Ab Negative (NEGATIVE) 05/26/16 06:22 Hepatitis C Antibody Reactive (NEGATIVE) H 05/26/16 06:22 Pneumocystis Source Serum (()) 05/24/16 17:35 S. 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 Patient fell this morning and was found by his caregiver. Patient denies losing consciousness from the fall and denies sustaining any injury from the fall. Patient is at his baseline mental status. Patient was recently admitted to [facility] for community acquired pneumonia and signed out AMA with meds sent to pharmacy. Patient denies headache , dizziness, lightheadedness, fever, chills, shortness of breath, chest pain, back pain, nausea, vomiting, or urinary symptoms. Patient is a 65 y/o AA M with recent admission for pneumonia who presented s/p fall. A chest x-ray was performed showing left lower lobe infiltrate obscuring the diaphragmatic border. A head CT was performed showing no acute findings. He was admitted and developed recurrent fevers, tachycardia, and leukocytosis. infectious disease and cardiology was consulted. His cardiac medications were adjusted due to bouts of SVT's on telemetry. He was started on IV antibiotics. Due to elevated transaminases, a hepatitis panel was performed finding him positive for hepatitis C. After treatment with antibiotics, his fevers and leukocytosis improved. He was determined medically stable for discharge as per ID and cardiology. He was discharged with Verapamil 240mg PO daily, Flagyl 500mg Q8H PO for 14 days, Keflex 500mg PO BID for 14 days, Atenolol 25 mg PO BID and Lisinopril 5mg PO daily. He was told to resume home medications except Metoprolol and Clindamycin; follow up with your primary care physician and silo filler upon discharge; follow up with the [facility] at [facility]. [address] [address] phone ; refrain from alcohol, tobacco, and illegal drug use; and if your condition worsens or new symptoms arise, please return to the emergency room. He verbalized understanding and was discharged home. This is a brief summary of the patient's stay at this facility. For more detail , please see his full chart. - Date & Time of H&P Date of H&P: 05/24/16 Time of H&P: 17:06 Discharge Exam - Head Exam Head Exam: ATRAUMATIC, NORMOCEPHALIC - Eye Exam Eye Exam: EOMI, Normal appearance, PERRL Pupil Exam: NORMAL ACCOMODATION, PERRL - ENT Exam ENT Exam: Mucous Membranes Moist. absent: Normal Exam (right sided weakness) - Respiratory Exam Respiratory Exam: Clear to PA & Lateral, NORMAL BREATHING PATTERN. absent: Rales, Rhonchi, Wheezes - Cardiovascular Exam Cardiovascular Exam: REGULAR RHYTHM, +S1, +S2 - GI/Abdominal Exam GI & Abdominal Exam: Normal Bowel Sounds, Soft. absent: Tenderness - Extremities Exam Extremities exam: normal capillary refill, pedal pulses present Additional comments: right sided weakness - Neurological Exam Neurological exam: Alert, Oriented x3 - Psychiatric Exam Psychiatric exam: Normal Affect, Normal Mood - Skin Skin Exam: Dry, Intact, Warm Discharge Plan - Discharge Medications Prescriptions: Verapamil [Calan SR Tab] 240 mg PO DAILY #30 tab Metronidazole [Flagyl] 500 mg PO Q8 #42 tablet Cephalexin [Keflex] 500 mg PO BID #28 cap Atenolol [Tenormin] 25 mg PO BID #60 tab Lisinopril [Zestril] 5 mg PO DAILY #30 tab - Follow Up Plan Condition: GOOD Disposition: HOME/ ROUTINE Instructions: Hepatitis C (GEN), Chest Pain (DC), Chest Pain (GEN) Additional Instructions: You are medically stable for discharge home. You are discharged with Verapamil 240mg PO daily, Flagyl 500mg Q8H PO for 14 days, Keflex 500mg PO BID for 14 days, Atenolol 25 mg PO BID and Lisinopril 5mg PO daily. Please resume home medications except Metoprolol and Clindamycin. Please follow up with your primary care physician and silo filler upon discharge. Please follow up with the [facility] at [facility] [place] [address] phone Please refrain from alcohol, tobacco, and illegal drug use. If your condition worsens or new symptoms arise, please return to the emergency room. Referrals: [facility] [Provider Group] Rosie Whitman MD [Primary Care Provider] - Nilsa Hein MD [Staff Provider] - Wilman Akbar MD [Staff Provider] - <Zelda Eaton - Last Filed: 05/31/16 06:52> Provider - Provider Date of Admission: 05/24/16 16:36 Attending physician: Zelda Eaton MD Primary care physician: Rosie Whitman MD Hospital Course - Lab Results Lab Results: Micro Results 05/27/16 16:30 Urine,Catheterized Urine Culture - Final No Growth (<1,000 CFU/ML) Most Recent Lab Values WBC 9.8 10^3/ul (4.5-11.0) D 05/28/16 06:20 RBC 3.94 10^6/uL (3.5-6.1) 05/28/16 06:20 Hgb 10.3 gm/dL (14.0-18.0) L 05/28/16 06:20 Hct 30.7 % (42.0-52.0) L 05/28/16 06:20 MCV 77.9 fL (80.0-105.0) L 05/28/16 06:20 MCH 26.1 pg (25.0-35.0) 05/28/16 06:20 MCHC 33.6 g/dl (31.0-37.0) 05/28/16 06:20 RDW 14.8 % (11.5-14.5) H 05/28/16 06:20 Plt Count 338 10^3/uL (120.0-450.0) 05/28/16 06:20 MPV 11.2 fl (7.0-11.0) H 05/28/16 06:20 Gran % 71.5 % (50.0-68.0) H 05/28/16 06:20 Lymph % (Auto) 12.0 % (22.0-35.0) L 05/28/16 06:20 [place] % (Auto) 13.7 % (1.0-6.0) H 05/28/16 06:20 Eos % (Auto) 2.3 % (1.5-5.0) 05/28/16 06:20 Baso % (Auto) 0.5 % (0.0-3.0) 05/28/16 06:20 Gran # 7.03 (1.4-6.5) H 05/28/16 06:20 Lymph # 1.2 (1.2-3.4) 05/28/16 06:20 [place] # 1.4 (0.1-0.6) H 05/28/16 06:20 Eos # 0.2 (0.0-0.7) 05/28/16 06:20 Baso # 0.05 K/mm3 (0.0-2.0) 05/28/16 06:20 PT 14.5 Seconds (9.9-11.8) H 05/24/16 12:15 INR 1.34 (0.93-1.08) H 05/24/16 12:15 APTT 31.7 Seconds (23.7-30.8) H 05/24/16 12:15 pCO2 43 mm/Hg (35-45) 05/24/16 17:00 pO2 138.0 mm/Hg (80-100) H 05/24/16 17:00 HCO3 24.9 mmol/L (21-28) 05/24/16 17:00 ABG pH 7.37 (7.35-7.45) 05/24/16 17:00 ABG Total CO2 26.2 mmol.L (22-28) 05/24/16 17:00 ABG O2 Saturation 99.8 % (95-98) H 05/24/16 17:00 ABG Base Excess -0.6 mmol/L (-2.0-3.0) 05/24/16 17:00 ABG Potassium 3.8 mmol/L (3.6-5.2) 05/24/16 17:00 VBG pH 7.34 (7.32-7.43) 05/24/16 12:15 VBG pCO2 59.0 (40-60) 05/24/16 12:15 VBG HCO3 31.8 mmol/l (21-28) H 05/24/16 12:15 VBG Total CO2 33.6 mmol.L (22-28) H 05/24/16 12:15 VBG O2 Sat (Calc) 87.9 % (40-65) H 05/24/16 12:15 VBG Base Excess 4.3 mmol/L (0.0-2.0) H 05/24/16 12:15 VBG Potassium 4.2 mmol/L (3.6-5.2) 05/24/16 12:15 Sodium 144.0 mmol/L (132-148) 05/24/16 17:00 Chloride 114.0 mmol/L (98-107) H 05/24/16 17:00 Glucose 114 mg/dl (75-110) H 05/24/16 17:00 Lactate 0.8 mmol/L (0.7-2.1) 05/24/16 17:00 FiO2 36.0 % 05/24/16 17:00 Sodium 143 mmol/L (132-148) 05/28/16 06:20 Potassium 3.8 mmol/L (3.6-5.0) 05/28/16 06:20 Chloride 111 mmol/L (98-107) H 05/28/16 06:20 Carbon Dioxide 22 mmol/L (21-33) 05/28/16 06:20 Anion Gap 14 (10-20) 05/28/16 06:20 BUN 11 mg/dL (7-21) 05/28/16 06:20 Creatinine 0.9 mg/dL (0.5-1.4) 05/28/16 06:20 Est GFR ( Amer) > 60 05/28/16 06:20 Est GFR (Non-Af Amer) > 60 05/28/16 06:20 POC Glucose (mg/dL) 158 mg/dL (65-110) H 05/24/16 12:04 Random Glucose 92 mg/dL (70-110) 05/28/16 06:20 Calcium 8.8 mg/dL (8.4-10.5) 05/28/16 06:20 Phosphorus 2.7 mg/dL (2.5-4.5) 05/28/16 06:20 Magnesium 1.7 mg/dL (1.7-2.2) 05/28/16 06:20 Total Bilirubin 0.9 mg/dL (0.2-1.3) 05/28/16 06:20 AST 60 U/L (15-59) H 05/28/16 06:20 ALT 61 U/L (7-56) H 05/28/16 06:20 Alkaline Phosphatase 79 U/L (38-133) 05/28/16 06:20 Lactate Dehydrogenase 525 U/L (333-699) 05/24/16 12:15 Total Creatine Kinase 67 U/L (35-230) 05/24/16 12:15 Troponin I 0.03 ng/mL D 05/24/16 12:15 Total Protein 7.0 g/dL (5.8-8.3) 05/28/16 06:20 Albumin 2.8 g/dL (3.0-4.8) L 05/28/16 06:20 Globulin 4.1 gm/dL 05/28/16 06:20 Albumin/Globulin Ratio 0.7 (1.1-1.8) L 05/28/16 06:20 Procalcitonin 0.19 NG/ML (0.19-0.49) 05/24/16 12:15 Arterial Blood Potassium 3.8 mmol/L (3.6-5.2) 05/24/16 17:00 Venous Blood Potassium 4.2 mmol/L (3.6-5.2) 05/24/16 12:15 Urine Color Yellow (YELLOW) 05/27/16 16:30 Urine Appearance Slight-cloudy (CLEAR) 05/27/16 16:30 Urine pH 6.0 (4.7-8.0) 05/27/16 16:30 Ur Specific Vista >= 1.030 (1.005-1.035) 05/27/16 16:30 Urine Protein Trace mg/dL (<30 mg/dL) H 05/27/16 16:30 Urine Glucose (UA) Negative mg/dL (NEGATIVE) 05/27/16 16:30 Urine Ketones Trace mg/dL (NEGATIVE) H 05/27/16 16:30 Urine Blood Negative (NEGATIVE) 05/27/16 16:30 Urine Nitrate Negative (NEGATIVE) 05/27/16 16:30 Urine Bilirubin Negative (NEGATIVE) 05/27/16 16:30 Urine Urobilinogen 0.2 E.U./dL (<1 E.U./dL) 05/27/16 16:30 Ur Leukocyte Esterase Negative Dwayne/uL (NEGATIVE) 05/27/16 16:30 Urine RBC 0 - 2 /hpf (0-2) 05/27/16 16:30 Urine WBC 0 - 2 /hpf (0-6) 05/27/16 16:30 Ur Epithelial Cells 0 - 2 /hpf (0-5) 05/27/16 16:30 Amorphous Sediment Few 05/27/16 16:30 Urine Bacteria Rare (NEG) 05/27/16 16:30 Hepatitis A IgM Ab Negative (NEGATIVE) 05/26/16 06:22 Hep Bs Antigen Negative (NEGATIVE) 05/26/16 06:22 Hep B Core IgM Ab Negative (NEGATIVE) 05/26/16 06:22 Hepatitis C Antibody Reactive (NEGATIVE) H 05/26/16 06:22 Pneumocystis Source Serum (()) 05/24/16 17:35 S. pneumoniae Antigen Not detected (()) 05/24/16 17:35 Attending/Attestation - Attestation I have personally seen and examined this patient.: Yes I have fully participated in the care of the patient.: Yes I have reviewed all pertinent clinical information, including history, physical exam and plan: Yes Notes (Text): 05/28/16 65 year old male with past medical history of hypertension, CVA and recent admission for pneumonia who presented after a fall at home. He was resumed on antibiotics for LLL pneumonia. He initially had fever while in hospital which resolved. He is discharged on po antibiotics. He was seen by cardiology for tachyarrythmias. His medications were adjusted and his heart rate improved. He has elevated LFTs. Workup revealed he was positive for Hepatitis C. He was informed of diagnosis and instructed to follow up at [facility] hepatitis clinic. He is on aspirin and statin for history of CVA. He was seen by PT and cleared for discharge to home. He is on cymbalta for history of depression. He is discharged home today to follow up with pmd. Continue with po antibiotics as prescribed. Follow up at [facility] Hepatitis Clinic. Zelda Eaton MD Hospitalist.
--- NOTE | 2016-05-28 17:03 | PN ---
DATE: 05/28/2016 REASON FOR CONSULTATION AND FOLLOWUP: Cardiac evaluation, history of hypertension, CVA, admitted aft er a fall, rule out syncope, paroxysmal atrial fibrillation, SVT. BRIEF CLINICAL HISTORY: This is a 65-year-old male with a past medical history significant for hyper tension, CVA, right upper extremity and right lower extremity weakness. Recently discharged but admi tted with a pneumonia and SVT. Readmitted after a fall. Previous admission was a pneumonia and arrh ythmia as mentioned. The patient had 10 beats of VT 2 days ago. Since the last ____, no evidence of any arrhythmia noted. PHYSICAL EXAMINATION: As follows: VITAL SIGNS: Temperature afebrile, heart rate 90, blood pressure 138/92. HEENT: PERRLA. Extraocular muscles intact. NECK: Supple. No carotid bruits. No thyromegaly. CHEST: Clear to auscultation. HEART: S1, S2 regular. ABDOMEN: Soft. EXTREMITIES: Clubbing and cyanosis negative. BLOOD WORKUP: As follows: WBC ____, hemoglobin 10.3, hematocrit 30.7, platelet count 338. Chemistr y shows sodium 143, potassium ____, chloride 111, carbon dioxide 22, anion gap of 14, BUN 11, creatin ine 0.9. IMPRESSION: Supraventricular tachycardia, 10 beats of ventricular tachycardia 48 hours before last _ ___. No further arrhythmia noted when the atenolol was increased. History of pneumonia, history of cerebrovascular accident, history of fall, history of right-sided weakness. Recent stress test was n egative for ischemia. Recent echo ejection fraction 50%, [id number] aortic regurgitation, mi [id number] mitral regurgitation, mild tricuspid regurgitation. Stress test, ejection fraction 55 %, no reversible ischemia. RECOMMENDATION: Metoprolol was discontinued day before and Tenormin was increased to 25 b.i.d., vera pamil. Continue verapamil 240 mg daily. Continue enoxaparin. We will follow with you. We will dis continue telemetry. Thank you, Dr. Eaton, for providing us the opportunity in taking care of patient. We will follow wit h you. No further cardiac workup is planned at this time. The patient is stable from cardiac point of view to be discharged. Nilsa Hein MD cc: [facility] TT: 05/28/2016 17:02:53 Confirmation # [id number] Dictation # [id number]
--- NOTE | 2016-05-28 18:07 | CP.PCM.PN ---
Subjective - Date & Time of Evaluation Date of Evaluation: 05/28/16 Time of Evaluation: 17:15 - Subjective Subjective: Infectious Disease Follow Up: May 28, 2016 65 yo male with presentation to the hospital after being found on the floor by his caregiver. The patient has no recollection of how he came to be on the floor. The patient was recently in the hospital for sudden episodes of chest pain primarily in the left side with shortness of breath and diaphoresis. 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 Imaging studies on the last hospitalization did show a RLL pneumonia that changed to a bilateral pneumonia then to a LLL pneumonia over the course of a couple of days. In addition, there was a question of whether bed bugs were found on the patient on the last hospitalization and a question of whether his home was fumigated. The patient had fevers of 101.5 F on the last hospitalization. He refused rehab placement on the last hospitalization and still refuses rehab placement. Cultures negative at 48 hours. Persistent findings in LLL on chest X-ray. Multiple low grade fevers. No specific new findings on imaging studies. no new specific findings on exam. Still mild leukocytosis. Afebrile today and no hypothermia. Cultures to date are negative. Patient himself denies complaints. Objective - Vital Signs/Intake and Output Vital Signs (last 24 hours): Temp Pulse Resp BP Pulse Ox 98.6 F 101 H 16 164/91 H 91 L 05/28/16 12:00 05/28/16 16:59 05/28/16 12:00 05/28/16 12:00 05/27/16 00:01 Intake and Output: 05/28/16 05/28/16 06:59 18:59 Intake Total 240 540 Output Total 300 Balance -60 540 - Medications Medications: Current Medications Acetaminophen (Tylenol 325mg Tab) 650 mg PO Q4H PRN PRN Reason: Fever >100.4 F Last Admin: 05/26/16 17:42 Dose: 650 mg Aspirin (Ecotrin) 325 mg PO DAILY [facility] Last Admin: 05/28/16 10:30 Dose: 325 mg Atenolol (Tenormin) 25 mg PO BID [facility] Last Admin: 05/28/16 10:33 Dose: 25 mg Atorvastatin Calcium (Lipitor) 20 mg PO HS [facility] Last Admin: 05/27/16 22:20 Dose: 20 mg Baclofen (Lioresal) 10 mg PO BID [facility] Last Admin: 05/28/16 10:29 Dose: 10 mg Cilostazol (Pletal) 100 mg PO BID [facility] Last Admin: 05/28/16 10:29 Dose: 100 mg Clonidine HCl (Catapres) 0.1 mg PO TID [facility] Last Admin: 05/28/16 16:59 Dose: 0.1 mg Dicyclomine HCl (Bentyl) 10 mg PO Q8 PRN PRN Reason: Other Duloxetine HCl (Cymbalta) 30 mg PO DAILY [facility] Last Admin: 05/28/16 10:30 Dose: 30 mg Enoxaparin Sodium (Lovenox) 40 mg SC DAILY [facility] PRN Reason: Protocol Last Admin: 05/28/16 10:29 Dose: 40 mg Gabapentin (Neurontin) 800 mg PO TID [facility] Last Admin: 05/28/16 16:58 Dose: 800 mg Sodium Chloride (Sodium Chloride 0.9%) 1,000 mls @ 100 mls/hr IV .Q10H [facility] Last Admin: 05/28/16 06:44 Dose: 100 mls/hr Vancomycin HCl (Vancomycin 1gm) 250 mls @ 250 mls/hr IVPB Q12 [facility] Last Admin: 05/28/16 10:28 Dose: 250 mls/hr Cefepime HCl (Maxipime 1gm) 100 mls @ 100 mls/hr IVPB Q12 [facility] PRN Reason: Protocol Last Admin: 05/28/16 10:28 Dose: 100 mls/hr Metronidazole (Flagyl) 100 mls @ 100 mls/hr IVPB Q8 [facility] PRN Reason: Protocol Last Admin: 05/28/16 16:59 Dose: 100 mls/hr Lisinopril (Zestril) 5 mg PO DAILY [facility] Last Admin: 05/28/16 10:30 Dose: 5 mg Multivitamins/Minerals (Therapeutic-M Tab) 1 tab PO DAILY [facility] Last Admin: 05/28/16 10:34 Dose: 1 tab Ondansetron HCl (Zofran Inj) 4 mg IVP Q6H PRN PRN Reason: Nausea/Vomiting Verapamil HCl (Calan Sr Tab) 240 mg PO DAILY [facility] Last Admin: 05/28/16 10:31 Dose: 240 mg Verapamil HCl (Verapamil Inj) 2.5 mg IVP Q6H PRN PRN Reason: Fopr Heart rate >130 - Labs Labs: 05/28/16 06:20 05/28/16 06:20 PT 14.5 Seconds (9.9-11.8) H 05/24/16 12:15 INR 1.34 (0.93-1.08) H 05/24/16 12:15 APTT 31.7 Seconds (23.7-30.8) H 05/24/16 12:15 - Constitutional Appears: Non-toxic, No Acute Distress, Chronically Ill - Head Exam Head Exam: ATRAUMATIC, NORMOCEPHALIC - Eye Exam Eye Exam: EOMI, PERRL Pupil Exam: NORMAL ACCOMODATION, PERRL - ENT Exam ENT Exam: Mucous Membranes Moist, Normal External Ear Exam, TM's Normal Bilaterally - Neck Exam Neck Exam: Full ROM, Normal Inspection - Respiratory Exam Respiratory Exam: Clear to Ausculation Bilateral, NORMAL BREATHING PATTERN. absent: Rales, Rhonchi, Wheezes - Cardiovascular Exam Cardiovascular Exam: REGULAR RHYTHM, RRR, +S1, +S2 - GI/Abdominal Exam GI & Abdominal Exam: Soft, Normal Bowel Sounds. 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 He was recently discharged back to home but he was advised strongly for rehabilitation admission due to his chronic medical issues. The patient refused suggestion for rehabilitation. Patient has been started on IV Vancomycin and Zosyn for antibiotic treatment at this time. Supportive care. X -ray of the chest shows a left lower lobe infiltrate similar to his last X-ray from the recent hospitalization at [facility]. Wells cultures have been sent. There is a no leukocytosis noted today. Supportive care. The patient is otherwise awake and alert and performs functions well with his left side. Caregiver states that the patient appears to be in his normal mood and activity. Patient has a "friend" named Fanny who also visited on his last hospitalization... she states that the patient was "a little weak" in the last day prior to this hospitalization. It was verified that the patient home was treated for bedbugs during his last hospitalization. The patient had low temperature a day ago. No specific findings found. Would repeat blood and urine cultures on this patient. Temperature reached up to 101.7 F two days ago. The past 24 hours have shown a normal temperature. When ready for discharge, utilize Keflex 500 mg PO BID and Flagyl 500 mg PO q8hrs for 14 days more. Thank you for allowing me to participate in the care of the patient, we will follow with you.
[2016-05-28 21:05] VITALS: BP 152/84; PULSE 99
== END 2016-05-28 23:36 | disposition home or self-care (01) | DRG 89 ==
LOC: ED 09:50 → ERH 16:36 → 2RNO 19:03
PROVIDERS: ADMIT Internal Medicine; ATTEND Internal Medicine
DX: J18.9 Pneumonia, unspecified organism (principal); I69.351 Hemiplegia and hemiparesis following cerebral infarction affecting right dominant side; I69.398 Other sequelae of cerebral infarction; R47.89 Other speech disturbances; I47.1 Supraventricular tachycardia; I10 Essential (primary) hypertension; B19.20 Unspecified viral hepatitis C without hepatic coma; E87.6 Hypokalemia; Y95 Nosocomial condition; I73.9 Peripheral vascular disease, unspecified; F17.210 Nicotine dependence, cigarettes, uncomplicated; F32.9 Major depressive disorder, single episode, unspecified; Z66 Do not resuscitate; I08.3 Combined rheumatic disorders of mitral, aortic and tricuspid valves; Z79.82 Long term (current) use of aspirin; Z91.81 History of falling

== ENCOUNTER 2016-06-01 15:45 | Inpatient (IN) | payer OTHER ==
[2016-06-01 15:47] VITALS: PULSE 104
--- NOTE | 2016-06-01 15:52 | EDPD ---
HPI Stroke - General Time Seen by Provider: 06/01/16 15:48 Historian: Patient, EMS - History of Present Illness Narrative History of Present Illness (Free Text): 06/01/16 15:51 65 year old male with a past medical history that includes CVA with residual right sided paralysis presents to the emergency department with left sided weakness 2 hours prior to arrival which has since resolved. EMS reports patient was hypotensive in the field. Patient was also recently hospitalized for pneumonia and discharged 4 days ago. Patient denies fever or cough. Patient answering questions on arrival without difficulty. Date:: 06/01/16 Time: 15:53 Onset:: Hours rTPA Inclusion/Exclusion - Refusal of Treatment Patient Refused Treatment: No - Inclusion Criteria for Altepase Patient is 18 years or Older: Yes The Clinical Diagnosis of Ischemic Stroke That is Causing a Potentially Disabling Neurological Deficit: No Time of Onset is Well Established to be Less Than 270 Minute Before Treatment Would Begin: Yes Risk/Benefit Discussed With Patient/Family Member Present: Yes Past Medical History - Provider Review Nursing Documentation Reviewed: Yes - Cardiac Hx Cardiac Disorders: Yes Hx Hypertension: Yes - Pulmonary Hx Respiratory Disorders: No - Neurological HX Cerebrovascular Accident: Yes - HEENT Hx HEENT Disorder: No - Renal Hx Renal Disorder: No - Endocrine/Metabolic Hx Endocrine Disorders: No - Hematological/Oncological Hx Blood Disorders: No - Integumentary Hx Dermatological Disorder: No - Musculoskeletal/Rheumatological Hx Falls: Yes - Gastrointestinal Hx Gastrointestinal Disorders: No - Genitourinary/Gynecological Hx Genitourinary Disorders: No - Psychiatric Hx Psychophysiologic Disorder: Yes Hx Depression: Yes - Surgical History Hx Abdominal Aortic Aneurysm Repair: No Family/Social History - Family/Social History Family History: Non-Contributory - Review Nursing documentation reviewed.: Yes Allergies/Home Meds Allergies/Adverse Reactions: Allergies No Known Allergies Allergy (Verified 06/01/16 16:02) Home Medications: Home Meds Medication Instructions Recorded Confirmed Aspirin [Ecotrin] 325 mg PO DAILY 05/13/16 06/01/16 DULoxetine [Cymbalta] 30 mg PO DAILY 05/13/16 06/01/16 Gabapentin [Neurontin] 800 mg PO TID 05/13/16 06/01/16 Simvastatin [Zocor] 40 mg PO HS 05/13/16 06/01/16 Cilostazol [Pletal] 100 mg PO BID 05/24/16 06/01/16 Multivitamin/Iron/Folic Acid 1 tab PO DAILY 05/24/16 06/01/16 [Certavite-Antioxidant Tablet] cloNIDine [Catapres] 0.1 mg PO TID 05/24/16 06/01/16 Verapamil HCl [Verapamil ER] 1 tab PO DAILY 06/01/16 06/01/16 Review of Systems - Physician Review All systems were reviewed & negative as marked: Yes - Review of Systems Constitutional: absent: Fevers Respiratory: absent: Cough Cardiovascular: absent: Chest Pain ED Stroke Physical Exam - Systems Exam Head: Present: Atraumatic, Normocephalic Pupils: Present: PERRL Extroacular Muscles: Present: EOMI Conjunctiva: Present: Normal Mouth: Present: Moist Mucous Membranes Neck: Present: Normal Range of Motion Respiratory/Chest: Present: Clear to Auscultation, Good Air Exchange. No: Respiratory Distress, Accessory Muscle Use Cardiovascular: Present: Regular Rate and Rhythm, Normal S1, S2. No: Murmurs Abdomen: Present: Normal Bowel Sounds. No: Tenderness, Distention, Peritoneal Signs Back: Present: GCS, CN, SP Upper Extremity: Present: Normal Inspection. No: Cyanosis, Edema Lower Extremity: Present: Normal Inspection. No: Edema Neurologic: Present: GCS=15, CN II-XII Intact, Normal Sensory Function, Normal Cerebellar Funct, Facial Droop (baseline). No: Speech Normal (slurred (baseline ), Motor Func Grossly Intact ((+)right side paralysis, left 5/5 baseline), Gait Normal, Pronator Drift Skin: Present: Warm, Dry, Normal Color. No: Rashes Lymphatic: Present: OX3, NI, NC Psychiatric: Present: Alert, Oriented x 3, Normal Insight, Normal Concentration Medical Decision Making ED Course and Treatment: Impression: 65 year old male with a past medical history that includes CVA with residual right sided paralysis presents to the emergency department with left sided weakness 2 hours prior to arrival which has since resolved. Differential Diagnosis include but are not limited to: CVA vs TIA vs sepsis, metabolic abnormality. Plan: -- CT Head, EKG, Chest x-ray -- Labs -- Reassess and disposition Prior Visits: Notes and results from previous visits were reviewed. Patient last discharged from the hospital on 05/28/16 after being treated for pneumonia Progress Notes: Patient seen immediately on arrival. PROCEDURE: CT HEAD WITHOUT CONTRAST. Dehydrogenation Operator : Tamir Yeager MD IMPRESSION: No acute intracranial findings 06/01/16 15:[address] Finney, states patient is not a TPA candidate as pt at baseline 06/01/16 17:11 pt mildly hypotenive on arrival. 500cc bolus intiated. now 117 systolic. antibotics ordered on arrival for suspected pna. 06/01/16 17:16 Fluid bolus stopped after 500 cc, BP now [address] Arnett accepts for admission - EKG Interpretation EKG Interpretation (Text): EKG shows NSR at 72 BPM, nonspecific ST/T wave changes, no interval changes Interpreted by ED Physician: Yes Type: 12 lead EKG - Scribe Statement The provider has reviewed the documentation as recorded by the Joshua Krause Provider Scribe Attestation: All medical record entries made by the Scribe were at my direction and personally dictated by me. I have reviewed the chart and agree that the record accurately reflects my personal performance of the history, physical exam, medical decision making, and the department course for this patient. I have also personally directed, reviewed, and agree with the discharge instructions and disposition. NIHSS Scale ([place]) Time Performed: 15:51 - How Severe is the [place]oke Baseline Level of Consciousness: 0=Alert LOC to Questions: 0=Both comments correct LOC to commands: 0=Obeys both correctly Best Gaze: 0=Normal Visual: 0=No visual loss Facial: 0=Normal Motor Arm - Left: 0=No drift Motor Arm - Right: 4=No movement (baseline) Motor Leg - Left: 0=No drift Motor Leg - Right: 4=No movement (baseline) Limb Ataxia: 0=Absent Sensory: 0=Normal Best Language: 0=No aphasia Dysarthia: 1=Mild to moderate slurring Extinction & Inattention (Neglect): 0=Normal, no object Score: 9 Risk Level: Mod Stroke Risk Disposition/Present on Arrival - Present on Arrival Any Indicators Present on Arrival: No History of DVT/PE: No History of Uncontrolled Diabetes: No Urinary Catheter: No History Surgical Site Infection Following: None - Disposition Have Diagnosis and Disposition been Completed?: Yes Diagnosis: Pneumonia, Weakness Disposition: HOSPITALIZED Disposition Time: 02:00 Condition: FAIR
--- NOTE | 2016-06-01 16:01 | CT ---
PROCEDURE: CT HEAD WITHOUT CONTRAST. HISTORY: Code Stroke COMPARISON: 05/24/2016 TECHNIQUE: Axial computed tomography images were obtained through the head/brain without intravenous contrast. Radiation dose: Total exam DLP = 723 mGy-cm. This CT exam was performed using one or more of the following dose reduction techniques: Automated exposure control, adjustment of the mA and/or kV according to patient size, and/or use of iterative reconstruction technique. FINDINGS: HEMORRHAGE: No intracranial hemorrhage. BRAIN: No mass effect or edema. Chronic microvascular changes are seen in the periventricular white matter in the left basal ganglia and thalamus. Findings are unchanged. Microvascular changes are also seen on the left side of the jakub. There are no acute findings VENTRICLES: Unremarkable. No hydrocephalus. CALVARIUM: Unremarkable. PARANASAL SINUSES: Unremarkable as visualized. No significant inflammatory changes. MASTOID AIR CELLS: Unremarkable as visualized. No inflammatory changes. OTHER FINDINGS: None. IMPRESSION: No acute intracranial findings
[2016-06-01] MEDS ORDERED: Vancomycin 1gm in NS 250ml 250 ML IVPB STA (16:12)
[2016-06-01] MEDS ORDERED: Piperacillin/Tazobact 3.375 gm 100 ML IVPB STA (16:12)
[2016-06-01] MEDS ORDERED: Sodium Chloride 0.9% 1,000 ML IV STA (16:13)
[2016-06-01 16:31] LABS: ADD MANUAL DIFF? NO
[2016-06-01 16:37] LABS: VENOUS BLOOD GAS BASE EXCESS -1.3 mmol/L (0.0-2.0); VENOUS BLOOD PH 7.38 (7.32-7.43)
[2016-06-01 16:46] LABS: ALB/GLOB RATIO 0.7 (1.1-1.8); ALKALINE PHOSPHATASE 92 U/L (38-133); ALT/SGPT 43 U/L (7-56); AST/SGOT 44 U/L (15-59); BLOOD UREA NITROGEN 9 mg/dL (7-21); CALCIUM 8.9 mg/dL (8.4-10.5); CARBON DIOXIDE 24 mmol/L (21-33); CHLORIDE 105 mmol/L (98-107); CHOLESTEROL 103 mg/dL (130-200); GFR AFRICAN-AMERICAN > 60; GLUCOSE,RANDOM 110 mg/dL (70-110); POTASSIUM 3.2 mmol/L (3.6-5.0); SODIUM 141 mmol/L (132-148); TOTAL PROTEIN 7.4 g/dL (5.8-8.3)
--- NOTE | 2016-06-01 16:57 | RAD ---
HISTORY: code stroke COMPARISON: Chest x-ray performed 05/24/16 TECHNIQUE: Chest, one view. FINDINGS: LUNGS: Increased opacification with small to moderate left-sided pleural effusion and associated consolidation. No definite pneumothorax. Right hilar prominence. No definite pneumothorax. Please note that chest x-ray has limited sensitivity for the detection of pulmonary masses. CARDIOVASCULAR: Cardiomegaly. OSSEOUS STRUCTURES: Degenerative changes. VISUALIZED UPPER ABDOMEN: Unremarkable. OTHER FINDINGS: None. IMPRESSION: Increased opacification with small to moderate left-sided pleural effusion and associated consolidation. No definite pneumothorax. Right hilar prominence.
[2016-06-01] MEDS ORDERED: Potassium Chloride 20 mEq ER Tab PO STA (16:58)
[2016-06-01 17:00] LABS: TROPONIN I 0.02 ng/mL
[2016-06-01 17:03] LABS: BASO # 0.04 K/mm3 (0.0-2.0); BASO % 0.4 % (0.0-3.0); EOS # 0.1 (0.0-0.7); EOS % 1.1 % (1.5-5.0); GRAN # 6.35 (1.4-6.5); GRAN % 67.9 % (50.0-68.0); HEMATOCRIT 33.2 % (42.0-52.0); LYMPH # 1.5 (1.2-3.4); LYMPH % 16.1 % (22.0-35.0); MEAN CELL VOLUME 76.5 fL (80.0-105.0); MEAN PLATELET VOLUME 10.8 fl (7.0-11.0); MONO # 1.4 (0.1-0.6); MONO % 14.5 % (1.0-6.0); PLATELET COUNT 443 10^3/uL (120.0-450.0); RED CELL DISTRIBUTION WIDTH 14.6 % (11.5-14.5); WHITE BLOOD COUNT 9.3 10^3/ul (4.5-11.0)
[2016-06-01 17:09] LABS: INR 1.54 (0.93-1.08); PARTIAL THROMBOPLASTIN TIME 32.7 Seconds (23.7-30.8)
[2016-06-01] MEDS ORDERED: Sodium Chloride 0.9% 1,000 ML IV SCH (18:30)
--- NOTE | 2016-06-01 18:40 | CP.PCM.HP ---
<Wade Lovett - Last Filed: 06/01/16 18:30> History of Present Illness - History of Present Illness History of Present Illness: CC: Weakness/ AMS Patient is a 65 y/o AA M with PMHX of HTN, CVA with right sided hemiparesis, pneumonia, hep C, who was BIBA after his cryolite recovery operator called due to AMS and left sided weakness. Per EMS, the patient was found to have left sided weakness and hypotensive. Per ER physician, the patient no longer had left sided weakness; however, code stroke was called. The patient is alert and able to answer questions. He denies any left sided weakness and altered mental status. He states his home health aid comes to his home between 2-4 and she called 911 and told him he was going to the hospital. He is able to give his name, hospital name, and year. He denies any chest pain, fever, chills, headache, nausea, vomiting, SOB, dysphagia, new weakness ,numbness, or tingling. He does have a productive cough with yellow sputum. PMD: Dr. Whitman Past medical hx:HTN, CVA with right sided hemiparesis, pneumonia, hep C Past surgical hx: denies Family hx: non-contributory Social hx: lives alone with home health aid visitor, occasional alcohol and tobacco use, denies drug use Allergies: NKDA Meds: bentyl, clonidine, cymbalta, asa, baclofen, metoprolol, neurotin, cilostazol, simvastatin,Verapamil,Metronidazole,Cephalexin, Atenolol Lisinopril Present on Admission - Present on Admission Any Indicators Present on Admission: No Review of Systems - Constitutional Constitutional: absent: Chills, Fever - EENT Eyes: absent: Change in Vision Ears: absent: Decreased Hearing, Disequilibrium Nose/Mouth/Throat: absent: Dysphagia - Cardiovascular Cardiovascular: absent: Chest Pain, Dyspnea, Edema - Respiratory Respiratory: Cough, Change in Mucous Color. absent: Dyspnea - Gastrointestinal Gastrointestinal: absent: Constipation, Diarrhea, Hematemesis, Hematochezia, Melena, Nausea, Vomiting - Genitourinary Genitourinary: absent: Dysuria - Musculoskeletal Musculoskeletal: absent: Numbness, Stiffness, Tingling - Integumentary Integumentary: absent: Lesions, Rash, Wounds - Neurological Neurological: absent: Numbness, Focal Weakness, Tingling, Weakness - Psychiatric Psychiatric: absent: Anxiety, Depression - Endocrine Endocrine: absent: Fatigue, Palpitations Past Patient History - Infectious Disease Hx of Infectious Diseases: None - Tetanus Immunizations Tetanus Immunization: Unknown - Past Medical History & Family History Past Medical History?: Yes - Past Social History Smoking Status: Current Some Days Smoker Chewing Tobacco Use: No Cigar Use: No Alcohol: Occasional Drugs: Denies Home Situation {Lives}: Alone - CARDIAC Hx Cardiac Disorders: Yes Hx Hypertension: Yes - PULMONARY Hx Respiratory Disorders: No - NEUROLOGICAL HX Cerebrovascular Accident: Yes - HEENT Hx HEENT Problems: No - RENAL Hx Chronic Kidney Disease: No - ENDOCRINE/METABOLIC Hx Endocrine Disorders: No - HEMATOLOGICAL/ONCOLOGICAL Hx Blood Disorders: No - INTEGUMENTARY Hx Dermatological Problems: No - MUSCULOSKELETAL/RHEUMATOLOGICAL Hx Falls: Yes - GASTROINTESTINAL Hx Gastrointestinal Disorders: No - GENITOURINARY/GYNECOLOGICAL Hx Genitourinary Disorders: No - PSYCHIATRIC Hx Psychophysiologic Disorder: Yes Hx Depression: Yes - SURGICAL HISTORY Hx Abdominal Aortic Aneurysm Repair: No Meds Allergies/Adverse Reactions: Allergies Allergy/AdvReac Type Severity Reaction Status Date / Time No Known Allergies Allergy Verified 06/01/16 16:02 Physical Exam - Constitutional Appears: Non-toxic, No Acute Distress - Head Exam Head Exam: ATRAUMATIC, NORMOCEPHALIC. absent: NORMAL INSPECTION (right sided facial weakness) - Eye Exam Eye Exam: EOMI, Normal appearance, PERRL. absent: Conjunctival injection, Scleral icterus Pupil Exam: NORMAL ACCOMODATION, PERRL - ENT Exam ENT Exam: Mucous Membranes Moist. absent: Normal Exam (right sided weaknness ) , Normal Oropharynx (poor dentition) - Neck Exam Neck exam: Positive for: Normal Inspection. Negative for: Tenderness, Thyromegaly - Respiratory Exam Respiratory Exam: Rhonchi (mild left sided crackles), NORMAL BREATHING PATTERN. absent: Rales - Cardiovascular Exam Cardiovascular Exam: REGULAR RHYTHM, +S1, +S2, Systolic Murmur (+2 systolic). absent: Gallop, Rubs - GI/Abdominal Exam GI & Abdominal Exam: Normal Bowel Sounds, Soft. absent: Distended, Guarding, Tenderness - Rectal Exam Rectal Exam: Deferred - Extremities Exam Extremities exam: Positive for: normal capillary refill, normal inspection, pedal pulses present. Negative for: full ROM, pedal edema, tenderness - Back Exam Back exam: NORMAL INSPECTION. absent: paraspinal tenderness, rash noted, tenderness - Neurological Exam Neurological exam: Alert, Oriented x3 Additional comments: right sided facial droop and hemiparesis - Psychiatric Exam Psychiatric exam: Normal Affect, Normal Mood - Skin Skin Exam: Dry, Intact, Normal Color, Warm Results - Vital Signs Recent Vital Signs: Last Vital Signs Temp 98.2 F 06/01/16 15:47 Pulse 76 06/01/16 18:24 Resp 16 06/01/16 18:24 BP 114/76 06/01/16 18:24 Pulse Ox 96 06/01/16 18:24 - Labs Result Diagrams: 06/01/16 16:00 06/01/16 16:00 Assessment & Plan - Assessment and Plan (Free Text) Assessment: 65 year old male with past medical history of hypertension, CVA, pneumonia, hep c, and depression presents to the ED after found to have AMS and left sided weakness by cryolite recovery operator. Patient is DNR/DNI. Patient found to have worsening left sided pneumonia on chest x-ray. Plan: 1) CVA * right sided hemiparesis * Neurology consulted, help appreciated * CT head showed no acute intracranial findings, no mas effect or edema, chroninc microvascular changes in periventricular white matter in left basal ganglia and thalamus [see full report] * MRI brain ordered, f/u report * Per neurology, pt not candidate for TPA * Given ASA 300mg rectally * F/U speech and swallow eval * f/u PT/OT eval * Hold BP medications, allow for permissive HTN * Hold PO meds 2) HCAP * Patient admitted for CAP recently * CXR this admission showed worsening left lower lobe infiltrate [see full report] * ID consulted, help appreciated * Pt afebrile w/o leukocytosis * Started on Vanc and Zosyn * BNP elevated at 4280 * f/u PROCAL * f/U BLOOD URINE AND SPUTUM CULTURES 3) Hypotension * Hold home verapamil and atenolol * IVF hydration 4) Electrolyte abnormalities * Potassium 3.2 on admission * replenish as needed 5) Depression * Cymbalta 30mg daily 9hold till swallow eval0 6) Hep C * Patient positive for Hep C on recent admission * referred to [facility] for treatment * monitor LFT's 9) Prophylactic measures * Protonix for GI ppx * Zofran for nausea and vomiting * SCD's * anticogulation contraindicated due to possible acute CVA/TIA Assessment and plan discussed with attending physician. <Sherin Lambert - Last Filed: 06/02/16 17:53> Results - Vital Signs Recent Vital Signs: Last Vital Signs Temp 97.5 F L 06/02/16 17:36 Pulse 114 H 06/02/16 17:36 Resp 18 06/02/16 17:36 BP 172/103 H 06/02/16 17:36 Pulse Ox 94 L 06/02/16 06:00 - Labs Result Diagrams: 06/02/16 06:15 06/02/16 06:15 Labs: Laboratory Results - last 24 hr 06/01/16 06/02/16 22:06 06:15 WBC 11.2 H D RBC 5.01 Hgb 13.3 L Hct 38.6 L MCV 77.0 L MCH 26.5 MCHC 34.5 RDW 14.9 H Plt Count 444 MPV 11.1 H Gran % 73.4 H Lymph % (Auto) 13.5 L Hunt % (Auto) 10.9 H Eos % (Auto) 1.7 Baso % (Auto) 0.5 Gran # 8.21 H Lymph # 1.5 Hunt # 1.2 H Eos # 0.2 Baso # 0.06 PT 15.6 H INR 1.44 H APTT 33.8 H Sodium 144 Potassium 3.4 L Chloride 107 Carbon Dioxide 26 Anion Gap 14 BUN 8 Creatinine 0.9 Est GFR ( Amer) > 60 Est GFR (Non-Af Amer) > 60 POC Glucose (mg/dL) 107 Random Glucose 85 Calcium 9.0 Total Bilirubin 1.1 AST 54 ALT 43 Alkaline Phosphatase 97 Total Protein 7.6 Albumin 3.1 Globulin 4.5 Albumin/Globulin Ratio 0.7 L Attending/Attestation - Attestation I have personally seen and examined this patient.: Yes I have fully participated in the care of the patient.: Yes I have reviewed all pertinent clinical information: Yes Notes (Text): I have seen and examined patient at bedside. This is 65 year old male with history of hypertension, CVA, pneumonia, hep c, and depression who was brought in by health aide for evaluation of new Left sided weakness which was resolved upon admission. Patient however is denying any weakness and he states that he is not even sure why health aide decided to call ambulance. Patient wanted to leave AMA. He was explained that he needs to stay. He is agreeable to stay for now. Will admit patient to rule out TIA. Patient will be made npo and start ivf as he is hypotensive. Hold all antihypertensives. Speech and swallow eval ordered. Neuro already consulted. He also has HCAP and he was recently in the hospital. Will order cultures, procal , vanco and zosyn. He also has hep c. He has been referred to [facility] but he has never been there. He does not follow up with physicians. He has residual right sided weakness and has slurred speech. Patient states that he has been taking asa 325 and lipitor at home. Will discuss with neurologist. Dr Sherin Lambert
[2016-06-01 21:08] VITALS: BMI 25.9
[2016-06-01] MEDS: Vancomycin 1gm in NS 250ml 250 ML IVPB SCH (21:13)
--- NOTE | 2016-06-01 21:39 | CARD ---
APPROVED REPORT EKG Measurement Heart [id number] <Conclusion> Normal sinus rhythm Possible Left atrial enlargement Left axis deviation Left ventricular hypertrophy T wave abnormality, consider lateral ischemia Prolonged QT Abnormal ECG
[2016-06-02] MEDS: Piperacillin/Tazobact 3.375 gm 100 ML IVPB SCH ×2 (00:07→05:39)
--- NOTE | 2016-06-02 04:33 | CP.PCM.CON ---
History of Present Illness - History of Present Illness History of Present Illness: Infectious Disease Consultation: June 01, 2016 65 yo male with presentation to the hospital after being found on the floor by his caregiver. The patient had been found by his jet handler again on the floor with left sided weakness. EMS also reported left sided weakness. In ER the weakness resolved. This is the third episode within the past 30 days now. Patient is still denying symptoms. PMHx: Hypertension, depression, right sided hemiparesis, CVA history PSHx: None to my knowledge Allergies: NKDA Social Hx: No tobacco, EtOH, or illicit drug use. A resident of a boarding facility. Active Medications Acetaminophen (Tylenol 650 Mg Supp) 650 mg GA Q6 PRN PRN Reason: Fever >100.4 F Aspirin (Aspirin Supp) 300 mg RC DAILY [facility]ONATHAN Sodium Chloride (Sodium Chloride 0.9%) 1,000 mls @ 100 mls/hr IV .Q10H [facility] Last Admin: 06/01/16 22:04 Dose: 100 mls/hr Piperacillin Sod/Tazobactam Sod (Zosyn 3.375 In Ns 100ml) 100 mls @ 200 mls/hr IVPB Q6 JONATHAN PRN Reason: Protocol Stop: 06/02/16 06:29 Last Admin: 06/02/16 00:07 Dose: 200 mls/hr Vancomycin HCl (Vancomycin 1gm) 250 mls @ 167 mls/hr IVPB Q12H [facility]ONATHAN PRN Reason: Protocol Last Admin: 06/01/16 21:13 Dose: Not Given Ondansetron HCl (Zofran Inj) 4 mg IVP Q6 PRN PRN Reason: Nausea/Vomiting Family Hx: None given ROS: No fevers, chills, nausea, vomiting, diarrhea, headaches, dizziness, abdominal pain, melena, hematuria, hematemesis, hematochezia, vision loss, hearing loss, loss of consciousness. Patient with chest pain, SOB, diaphoresis. Past Patient History - Infectious Disease Hx of Infectious Diseases: None - Tetanus Immunizations Tetanus Immunization: Unknown - Past Medical History & Family History Past Medical History?: Yes - Past Social History Smoking Status: Former Smoker - CARDIAC Hx Cardiac Disorders: Yes Hx Hypertension: Yes - PULMONARY Hx Respiratory Disorders: No - NEUROLOGICAL HX Cerebrovascular Accident: Yes - HEENT Hx HEENT Problems: No - RENAL Hx Chronic Kidney Disease: No - ENDOCRINE/METABOLIC Hx Endocrine Disorders: No - HEMATOLOGICAL/ONCOLOGICAL Hx Blood Disorders: No - INTEGUMENTARY Hx Dermatological Problems: No - MUSCULOSKELETAL/RHEUMATOLOGICAL Hx Falls: Yes - GASTROINTESTINAL Hx Gastrointestinal Disorders: No - GENITOURINARY/GYNECOLOGICAL Hx Genitourinary Disorders: No - PSYCHIATRIC Hx Substance Use: No - SURGICAL HISTORY Hx Surgeries: No (unknown, denied by home care nurse) Meds Allergies/Adverse Reactions: Allergies Allergy/AdvReac Type Severity Reaction Status Date / Time No Known Allergies Allergy Verified 06/01/16 16:02 - Medications Medications: Current Medications Acetaminophen (Tylenol 650 Mg Supp) 650 mg GA Q6 PRN PRN Reason: Fever >100.4 F Aspirin (Aspirin Supp) 300 mg RC DAILY [facility]ONATHAN Sodium Chloride (Sodium Chloride 0.9%) 1,000 mls @ 100 mls/hr IV .Q10H [facility] Last Admin: 06/01/16 22:04 Dose: 100 mls/hr Piperacillin Sod/Tazobactam Sod (Zosyn 3.375 In Ns 100ml) 100 mls @ 200 mls/hr IVPB Q6 JONATHAN PRN Reason: Protocol Stop: 06/02/16 06:29 Last Admin: 06/02/16 00:07 Dose: 200 mls/hr Vancomycin HCl (Vancomycin 1gm) 250 mls @ 167 mls/hr IVPB Q12H [facility] PRN Reason: Protocol Last Admin: 06/01/16 21:13 Dose: Not Given Ondansetron HCl (Zofran Inj) 4 mg IVP Q6 PRN PRN Reason: Nausea/Vomiting Physical Exam - Constitutional Appears: Non-toxic, No Acute Distress, Chronically Ill - Head Exam Head Exam: ATRAUMATIC, NORMOCEPHALIC - Eye Exam Eye Exam: EOMI, PERRL Pupil Exam: NORMAL ACCOMODATION, PERRL - ENT Exam ENT Exam: Mucous Membranes Moist, Normal External Ear Exam - Neck Exam Neck exam: Positive for: Full Rom, Normal Inspection - Respiratory Exam Respiratory Exam: Clear to Auscultation Bilateral, NORMAL BREATHING PATTERN. absent: Rales, Rhonchi, Wheezes - Cardiovascular Exam Cardiovascular Exam: REGULAR RHYTHM, RRR, +S1, +S2 - GI/Abdominal Exam GI & Abdominal Exam: Normal Bowel Sounds, Soft. absent: Distended, Organomegaly , Tenderness - Extremities Exam Extremities exam: Negative for: joint swelling, pedal edema Additional comments: right sided chronic weakness - Neurological Exam Neurological exam: Alert, CN II-XII Intact Additional comments: AAO x 2-3 right sided weakness. - Psychiatric Exam Psychiatric exam: Normal Affect, Normal Mood - Skin Skin Exam: Intact, Normal Color Results - Vital Signs Recent Vital Signs: Last Vital Signs Temp 97.7 F 06/02/16 00:01 Pulse 95 H 06/02/16 00:01 Resp 20 06/02/16 00:01 BP 181/97 H 06/02/16 00:01 Pulse Ox 96 06/01/16 20:02 - Labs Result Diagrams: 06/01/16 16:00 06/01/16 16:00 Assessment & Plan - Assessment and Plan (Free Text) Assessment: 65 yo AA male returning for the third time for similar symptoms of AMS and left sided weakness that appears to have resolved by the time he arrived in the ER. EMS verified the AMS and left sided weakness in the field. Given this is the third episode, the patient overall judgement does appear impaired at this point. Supportive care. He has been started on Zosyn and Vancomycin empirically. Thank you for allowing me to participate in the care of the patient, we will follow with you.
[2016-06-02] MEDS: Vancomycin 1gm in NS 250ml 250 ML IVPB SCH ×2 (05:39→17:33)
[2016-06-02 06:46] LABS: ADD MANUAL DIFF? NO
[2016-06-02 07:02] LABS: BASO # 0.06 K/mm3 (0.0-2.0); BASO % 0.5 % (0.0-3.0); EOS # 0.2 (0.0-0.7); EOS % 1.7 % (1.5-5.0); GRAN # 8.21 (1.4-6.5); GRAN % 73.4 % (50.0-68.0); HEMATOCRIT 38.6 % (42.0-52.0); LYMPH # 1.5 (1.2-3.4); LYMPH % 13.5 % (22.0-35.0); MEAN CORPUSCULAR HEMOGLOBIN 26.5 pg (25.0-35.0); MEAN CORPUSCULAR HGB CONC 34.5 g/dl (31.0-37.0); MEAN PLATELET VOLUME 11.1 fl (7.0-11.0); MONO # 1.2 (0.1-0.6); MONO % 10.9 % (1.0-6.0); PLATELET COUNT 444 10^3/uL (120.0-450.0); RED CELL DISTRIBUTION WIDTH 14.9 % (11.5-14.5); WHITE BLOOD COUNT 11.2 10^3/ul (4.5-11.0)
[2016-06-02 07:04] LABS: INR 1.44 (0.93-1.08); PARTIAL THROMBOPLASTIN TIME 33.8 Seconds (23.7-30.8)
[2016-06-02 07:17] LABS: ALB/GLOB RATIO 0.7 (1.1-1.8); ALKALINE PHOSPHATASE 97 U/L (38-133); ALT/SGPT 43 U/L (7-56); AST/SGOT 54 U/L (15-59); BILIRUBIN,TOTAL 1.1 mg/dL (0.2-1.3); BLOOD UREA NITROGEN 8 mg/dL (7-21); CARBON DIOXIDE 26 mmol/L (21-33); CHLORIDE 107 mmol/L (98-107); GFR AFRICAN-AMERICAN > 60; GLUCOSE,RANDOM 85 mg/dL (70-110); POTASSIUM 3.4 mmol/L (3.6-5.0); SODIUM 144 mmol/L (132-148); TOTAL PROTEIN 7.6 g/dL (5.8-8.3)
[2016-06-02] MEDS ORDERED: Potassium Chloride 20 mEq ER Tab PO ONE (09:34)
--- NOTE | 2016-06-02 09:43 | CP.PCM.PN ---
<SaulJammie - Last Filed: 06/02/16 13:42> Subjective - Date & Time of Evaluation Date of Evaluation: 06/02/16 Time of Evaluation: 13:42 - Subjective Subjective: Pt s&e w attending. CHAYON. L side weakness resolved. Pt AAox3. Incoherent speech. Denies F/C/n/V//CP/SOB/L side weakness. Objective - Vital Signs/Intake and Output Vital Signs (last 24 hours): Temp Pulse Resp BP Pulse Ox 97.8 F 71 18 162/97 H 94 L 06/02/16 06:00 06/02/16 06:00 06/02/16 06:00 06/02/16 06:00 06/02/16 06:00 Intake and Output: 06/02/16 06/02/16 06:59 18:59 Intake Total 1460 Output Total 100 Balance 1360 - Medications Medications: Current Medications Acetaminophen (Tylenol 650 Mg Supp) 650 mg WA Q6 PRN PRN Reason: Fever >100.4 F Aspirin (Aspirin Supp) 300 mg RC DAILY [facility] Last Admin: 06/02/16 09:31 Dose: 300 mg Sodium Chloride (Sodium Chloride 0.9%) 1,000 mls @ 100 mls/hr IV .Q10H [facility] Last Admin: 06/01/16 22:04 Dose: 100 mls/hr Vancomycin HCl (Vancomycin 1gm) 250 mls @ 167 mls/hr IVPB Q12H [facility]ON[facility] PRN Reason: Protocol Last Admin: 06/02/16 05:39 Dose: 167 mls/hr Ondansetron HCl (Zofran Inj) 4 mg IVP Q6 PRN PRN Reason: Nausea/Vomiting - Labs Labs: 06/02/16 06:15 06/02/16 06:15 PT 15.6 Seconds (9.9-11.8) H 06/02/16 06:15 INR 1.44 (0.93-1.08) H 06/02/16 06:15 APTT 33.8 Seconds (23.7-30.8) H 06/02/16 06:15 - Constitutional Appears: No Acute Distress - Head Exam Head Exam: ATRAUMATIC, NORMAL INSPECTION, NORMOCEPHALIC - Eye Exam Eye Exam: EOMI, Normal appearance, PERRL Pupil Exam: NORMAL ACCOMODATION, PERRL - ENT Exam ENT Exam: Mucous Membranes Moist, Normal Exam - Neck Exam Neck Exam: Full ROM - Respiratory Exam Respiratory Exam: Clear to Ausculation Bilateral, NORMAL BREATHING PATTERN - Cardiovascular Exam Cardiovascular Exam: REGULAR RHYTHM, +S1, +S2. absent: Murmur - GI/Abdominal Exam GI & Abdominal Exam: Soft, Normal Bowel Sounds. absent: Distended, Firm, Tenderness - Extremities Exam Extremities Exam: Pedal Edema. absent: Full ROM, Tenderness Additional comments: L extremities Full ROM/motor /sensory intact. R extremities dec ROM/no motor function. - Back Exam Back Exam: NORMAL INSPECTION - Neurological Exam Neurological Exam: Alert, Awake, CN II-XII Intact, Oriented x3 - Psychiatric Exam Psychiatric exam: Normal Affect, Normal Mood - Skin Skin Exam: Dry, Intact, Normal Color, Warm. 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 Patient is DNR/DNI. Patient found to have worsening left sided pneumonia on chest x-ray. Plan: 1) CVA * right sided hemiparesis * Neurology consulted: f/u MRI * CT head showed no acute intracranial findings, no mas effect or edema, chroninc microvascular changes in periventricular white matter in left basal ganglia and thalamus [see full report] * MRI brain ordered, f/u * Per neurology, pt not candidate for TPA * ASA PO * speech and swallow eval: Dysphagia, fine chopped thin liquids diet * f/u PT/OT eval * Hold BP medications, allow for permissive HTN 2) HCAP * Patient admitted for CAP recently * CXR this admission showed worsening left lower lobe infiltrate [see full report] * ID consulted, help appreciated * Pt afebrile * Started on Vanc and Zosyn * BNP elevated at 4280 * PROCAL: 0.22 * f/U BLOOD URINE AND SPUTUM CULTURES 3) Hypotension: resolved. Hypertensive now. * Home verapamil and atenolol: if SBP over 165 4) Electrolyte abnormalities * Potassium 3.2 ->3.4 * replenish as needed 5) Depression * Cymbalta 30mg daily 6) Hep C * Patient positive for Hep C on recent admission * referred to [facility] for treatment * monitor LFT's 9) Prophylactic measures * Protonix for GI ppx * Zofran for nausea and vomiting * SCD's * anticogulation contraindicated due to possible acute CVA/TIA Assessment and plan discussed with attending physician. <LambertSherin B - Last Filed: 06/03/16 17:18> Objective - Vital Signs/Intake and Output Vital Signs (last 24 hours): Temp Pulse Resp BP Pulse Ox 98.7 F 119 H 21 155/99 H 95 06/03/16 12:00 06/03/16 12:00 06/03/16 12:00 06/03/16 12:00 06/03/16 06:00 Intake and Output: 06/03/16 06/03/16 06:59 18:59 Intake Total 1190 500 Output Total 400 Balance 790 500 - Medications Medications: Current Medications Acetaminophen (Tylenol 325mg Tab) 650 mg PO Q6H PRN PRN Reason: Fever >100.4 F Aspirin (Aspirin) 325 mg PO DAILY [facility] Atenolol (Tenormin) 25 mg PO BID [facility] Last Admin: 06/03/16 10:34 Dose: 25 mg Clonidine HCl (Catapres) 0.1 mg PO TID PRN PRN Reason: Systolic Blood Pressure Last Admin: 06/03/16 03:59 Dose: 0.1 mg Duloxetine HCl (Cymbalta) 20 mg PO DAILY [facility] Last Admin: 06/03/16 10:32 Dose: 20 mg Hydralazine HCl (Apresoline) 10 mg IVP Q4H PRN PRN Reason: Systolic Blood Pressure Last Admin: 06/03/16 02:53 Dose: 10 mg Hydralazine HCl (Apresoline) 20 mg IVP Q4H PRN PRN Reason: Systolic Blood Pressure Vancomycin HCl (Vancomycin 1gm) 250 mls @ 167 mls/hr IVPB Q12H [facility]ONATH[facility] PRN Reason: Protocol Last Admin: 06/03/16 05:54 Dose: Not Given Piperacillin Sod/Tazobactam Sod (Zosyn 3.375 In Ns 100ml) 100 mls @ 200 mls/hr IVPB Q6 JONATHAN PRN Reason: Protocol Stop: 06/09/16 00:29 Lisinopril (Zestril) 20 mg PO DAILY [facility] Ondansetron HCl (Zofran Odt) 8 mg PO Q8H PRN PRN Reason: Nausea/Vomiting Pantoprazole Sodium (Protonix Susp) 40 mg PO DAILY [facility]ONATHAN Last Admin: 06/03/16 10:32 Dose: 40 mg - Labs Labs: 06/03/16 06:30 06/03/16 06:30 PT 15.6 Seconds (9.9-11.8) H 06/02/16 06:15 INR 1.44 (0.93-1.08) H 06/02/16 06:15 APTT 33.8 Seconds (23.7-30.8) H 06/02/16 06:15 Attending/Attestation - Attestation I have personally seen and examined this patient.: Yes I have fully participated in the care of the patient.: Yes I have reviewed all pertinent clinical information, including history, physical exam and plan: Yes Notes (Text): I have seen and examined patient at bedside. This is 65 year old male with history of hypertension, CVA, pneumonia, hep c, and depression who was brought in by health aide for evaluation of new Left sided weakness which was resolved upon admission. Patient was admitted to rule out TIA. CT scan did not show any acute changes. MRI ordered and is pending at this time. Speech and swallow eval was done and they recommended finely chopped thin liquids. Continue aspirin and lipitor. Continue permissive hypertension for possible ischemic insult to ensure perfusion. Neuro consult appreciated. He also has HCAP and he was recently in the hospital. Will Continue vanco and zosyn. Cultures pending. He also has hep c. He has been referred to [facility] but he has never been there. He does not follow up with physicians. He has residual right sided weakness and has slurred speech. Dr Sherin Lambert
[2016-06-02] MEDS ORDERED: Piperacillin/Tazobact 2.25gm 100 ML IVPB SCH (12:00)
--- NOTE | 2016-06-02 13:05 | CON ---
DATE: 06/02/2016 HISTORY OF PRESENT ILLNESS: This is a 65-year-old black male with past medical history of hypertensi on and stroke with right hemiplegia, hep C and pneumonia who came here because of altered mental stat e. Found to have left-sided weakness and code stroke was called. PAST MEDICAL HISTORY: Hypertension, stroke, pneumonia, hep C. ALLERGIES: No known drug allergies. MEDICATIONS: Clonidine, Cymbalta, aspirin, baclofen, Neurontin, verapamil, atenolol, lisinopril. REVIEW OF SYSTEMS: A 10-point review of systems was negative. ALLERGIES: No known drug allergies. PHYSICAL EXAMINATION: HEENT: Normocephalic, atraumatic. VITAL SIGNS: Blood pressure 114/76. NEUROLOGIC: Residual weakness on the right side from a previous stroke, and moves left side spontane ously. REFLEXES: Deep tendon reflexes 1+. Both plantars downgoing. SENSORY: Appears intact. Decreased sensation on the right side. CEREBELLAR GAIT: Deferred. IMPRESSION: A 65-year-old with a history of hypertension, cerebrovascular accident, pneumonia, depre ssion, came to the Emergency Room with altered mental status. Called to evaluate the patient. CAT s can of the head was done which was reported negative. The patient has multiple medical problems - ol d stroke with residual right hemiplegia and CAT scan did not show any abnormality, depression, hepati tis C. PLAN: Continue present management. We will follow up. Bennett Finney MD cc: [id number] TT: 06/02/2016 13:04:21 Confirmation # [id number] Dictation # [id number] jose armando
[2016-06-02] MEDS: Piperacillin/Tazobact 2.25gm 100 ML IVPB SCH (17:32)
--- NOTE | 2016-06-02 18:15 | CP.PCM.PN ---
Subjective - Date & Time of Evaluation Date of Evaluation: 06/02/16 Time of Evaluation: 17:15 - Subjective Subjective: Infectious Disease Follow Up: June 02, 2016 65 yo male with presentation to the hospital after being found on the floor by his caregiver. 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 EMS also reported left sided weakness. In ER the weakness resolved. This is the third episode within the past 30 days now. Patient is still denying symptoms. Patient had swallowing test done and failed it. He appears at his baseline today. Objective - Vital Signs/Intake and Output Vital Signs (last 24 hours): Temp Pulse Resp BP Pulse Ox 97.5 F L 114 H 18 172/103 H 94 L 06/02/16 17:36 06/02/16 17:36 06/02/16 17:36 06/02/16 17:36 06/02/16 06:00 Intake and Output: 06/02/16 06/02/16 06:59 18:59 Intake Total 1460 120 Output Total 100 Balance 1360 120 - Medications Medications: Current Medications Acetaminophen (Tylenol 325mg Tab) 650 mg PO Q6H PRN PRN Reason: Fever >100.4 F Aspirin (Aspirin) 325 mg PO DAILY [facility] Atenolol (Tenormin) 25 mg PO BID [facility] Last Admin: 06/02/16 15:41 Dose: 25 mg Clonidine HCl (Catapres) 0.1 mg PO TID PRN PRN Reason: Systolic Blood Pressure Duloxetine HCl (Cymbalta) 20 mg PO DAILY [facility] Vancomycin HCl (Vancomycin 1gm) 250 mls @ 167 mls/hr IVPB Q12H JONATHAN PRN Reason: Protocol Last Admin: 06/02/16 17:33 Dose: 167 mls/hr Piperacillin Sod/Tazobactam Sod (Zosyn 2.25 Gm In 0.9% 100 Ml) 100 mls @ 100 mls/hr IVPB Q6 [facility]ONATHAN PRN Reason: Protocol Last Admin: 06/02/16 17:32 Dose: 100 mls/hr Lisinopril (Zestril) 5 mg PO DAILY [facility] Last Admin: 06/02/16 15:41 Dose: 5 mg Ondansetron HCl (Zofran Odt) 8 mg PO Q8H PRN PRN Reason: Nausea/Vomiting Pantoprazole Sodium (Protonix Susp) 40 mg PO DAILY JONATHAN - Labs Labs: 06/02/16 06:15 06/02/16 06:15 PT 15.6 Seconds (9.9-11.8) H 06/02/16 06:15 INR 1.44 (0.93-1.08) H 06/02/16 06:15 APTT 33.8 Seconds (23.7-30.8) H 06/02/16 06:15 - Constitutional Appears: Non-toxic, No Acute Distress, Chronically Ill - Head Exam Head Exam: ATRAUMATIC, NORMOCEPHALIC - Eye Exam Eye Exam: EOMI, PERRL Pupil Exam: NORMAL ACCOMODATION, PERRL - ENT Exam ENT Exam: Mucous Membranes Moist, Normal External Ear Exam, TM's Normal Bilaterally - Neck Exam Neck Exam: Full ROM, Normal Inspection - Respiratory Exam Respiratory Exam: Clear to Ausculation Bilateral, NORMAL BREATHING PATTERN. absent: Rales, Rhonchi, Wheezes - Cardiovascular Exam Cardiovascular Exam: REGULAR RHYTHM, RRR, +S1, +S2 - GI/Abdominal Exam GI & Abdominal Exam: Soft, Normal Bowel Sounds. absent: Distended, Tenderness - Extremities Exam Extremities Exam: absent: Joint Swelling, Pedal Edema Additional comments: right sided chronic weakness - Neurological Exam Neurological Exam: Alert, Awake, CN II-XII Intact Additional comments: AAO x 2-3 right sided weakness. - Psychiatric Exam Psychiatric exam: Normal Affect, Normal Mood - Skin Skin Exam: Intact, Normal Color Assessment and Plan - Assessment and Plan (Free Text) Assessment: 65 yo AA male returning for the third time for similar symptoms of AMS and left sided weakness that appears to have resolved by the time he arrived in the ER. EMS verified the AMS and left sided weakness in the field. Given this is the third episode, the patient overall judgement does appear impaired at this point. Supportive care. He has been started on Zosyn and Vancomycin empirically. Worsening LLL pneumonia? Most likely repeated Aspiration pneumonia episodes. Patient continues to deny any symptoms. Thank you for allowing me to participate in the care of the patient, we will follow with you.
[2016-06-02] MEDS ORDERED: Gadodiamide 287 MG/ML VIAL (15ML) IV ONE (19:06)
--- NOTE | 2016-06-02 20:25 | MRI ---
EXAM: MR Head Without and With Intravenous Contrast CLINICAL HISTORY: 65 years old, male; Signs and symptoms; Other: CVA TIA TECHNIQUE: Magnetic resonance images of the head/brain without and with intravenous contrast in multiple planes. CONTRAST: 15 mL of OMNISCAN administered intravenously. EXAM DATE/TIME: 06/02/2016 6:29 PM COMPARISON: Recent head CT of 06/01/2016 3:49 PM FINDINGS: BRAIN: Best seen on image 19 of series 4, there is a tiny 4 mm round focus of signal abnormality in the left posterior frontal deep white matter, compatible with a focus of acute hemorrhage. This is also seen on the recent CT head. Best seen on the gradient images, there are extensive, mostly tiny, round foci of decreased signal abnormality seen throughout the brain, too numerous to count. These are located in the brain diffusely, including the cerebellum bilaterally, the cerebral hemispheres bilaterally, as well as a scattered few in the midbrain. No evidence of significant associated abnormal enhancement. Findings are suspicious for extensive, mostly tiny foci of chronic intracranial hemorrhage. In the left basal ganglia, there is a large focus of signal abnormality with an appearance most suggestive of a chronic hemorrhage. There is associated nearby chronic ischemic change in the left basal ganglia, extending into the left cerebral peduncle, left midbrain and left jakub. Somewhat extensive areas of increased T2 signal in the white matter bilaterally. This is a nonspecific finding, but is most likely due to moderate to severe chronic small vessel ischemic changes, in a patient of this age. Diffuse, age-related cortical atrophy and ventriculomegaly. No acute extra-axial fluid collections visualized. No evidence of restricted diffusion/acute infarct. No evidence of abnormal intracranial enhancement. No evidence of midline shift, ventricular effacement, basilar cistern effacement, or other significant intracranial mass effect. VENTRICLES: See above. BONES/JOINTS: No acute abnormality identified. SINUSES: Visualized paranasal sinuses appear clear. MASTOID AIR CELLS: Mastoid aircells appear clear. IMPRESSION: - Tiny 4 mm focus of acute hemorrhage in the left posterior frontal deep white matter. No evidence of acute infarct. - Extensive (too numerous to count) mostly tiny foci of chronic intracranial hemorrhage, diffuse in nature. Findings are of uncertain etiology, but could be related to cerebral amyloid angiopathy, cerebral hypertensive vasculopathy, extensive cavernous malformations, or cerebral vasculitis. Further workup is recommended. - Findings compatible with a large, chronic hemorrhage in the left basal ganglia. - See above for remaining findings.
--- NOTE | 2016-06-02 23:53 | CP.PCM.CON ---
History of Present Illness - History of Present Illness History of Present Illness: Reason for ICU Consult: MRI Brain showing a bleed HPI: 65 y/o AAM with a PMHx Htn, CVA with residual Right sided hemiparesis, Htn , Pnuemonia and Hep C was admitted to the hospital yesterday as a code stroke patient. Initial CT Head did not show any acute changes or bleeds, the patient did not receive any tPa and was admitted to the tele floor for a possible TIA vs CVA. MRI done earlier this evening shows a 4mm acute left posterior frontal white matter focus of signal possibly indicating a hemorrhage. The patient himself is resting comfortably in bed, answering all of my questions and denies any complaints of headache, vision changes, nausea, vomiting or dizziness. He states that he feels "fine" aside from some mild abdominal cramps. He denies any other complaints at this time when asked if anything is bothering him. PMHx: As above Fam Hx: reviewed as per the chart; nonconributory Soc Hx: uses tobacco and etoh; denies drug use; has a home health aide who visits daily Allergies: NKDA Meds: see med rec Review of Systems - Review of Systems Review of Systems: As per HPI otherwise negative for a 12 point ROS Past Patient History - Infectious Disease Hx of Infectious Diseases: None - Tetanus Immunizations Tetanus Immunization: Unknown - Past Medical History & Family History Past Medical History?: Yes - Past Social History Smoking Status: Former Smoker Alcohol: Social Drugs: Denies - CARDIAC Hx Cardiac Disorders: Yes Hx Hypertension: Yes - PULMONARY Hx Pneumonia: Yes - NEUROLOGICAL HX Cerebrovascular Accident: Yes (R sided weakness) - HEENT Hx HEENT Problems: No - RENAL Hx Chronic Kidney Disease: No - ENDOCRINE/METABOLIC Hx Endocrine Disorders: No - HEMATOLOGICAL/ONCOLOGICAL Hx Blood Disorders: No - INTEGUMENTARY Hx Dermatological Problems: No - MUSCULOSKELETAL/RHEUMATOLOGICAL Hx Falls: Yes - GASTROINTESTINAL Hx Gastrointestinal Disorders: No - GENITOURINARY/GYNECOLOGICAL Hx Genitourinary Disorders: No - PSYCHIATRIC Hx Substance Use: No - SURGICAL HISTORY Hx Surgeries: No (unknown, denied by home care nurse) Meds Allergies/Adverse Reactions: Allergies Allergy/AdvReac Type Severity Reaction Status Date / Time No Known Allergies Allergy Verified 06/01/16 16:02 - Medications Medications: Current Medications Acetaminophen (Tylenol 325mg Tab) 650 mg PO Q6H PRN PRN Reason: Fever >100.4 F Aspirin (Aspirin) 325 mg PO DAILY [facility] Atenolol (Tenormin) 25 mg PO BID [facility] Last Admin: 06/02/16 19:32 Dose: 25 mg Clonidine HCl (Catapres) 0.1 mg PO TID PRN PRN Reason: Systolic Blood Pressure Last Admin: 06/02/16 21:14 Dose: 0.1 mg Duloxetine HCl (Cymbalta) 20 mg PO DAILY [facility] Vancomycin HCl (Vancomycin 1gm) 250 mls @ 167 mls/hr IVPB Q12H JONATHAN PRN Reason: Protocol Last Admin: 06/02/16 17:33 Dose: 167 mls/hr Piperacillin Sod/Tazobactam Sod (Zosyn 2.25 Gm In 0.9% 100 Ml) 100 mls @ 100 mls/hr IVPB Q6 [facility] PRN Reason: Protocol Last Admin: 06/02/16 17:32 Dose: 100 mls/hr Lisinopril (Zestril) 5 mg PO DAILY [facility] Last Admin: 06/02/16 15:41 Dose: 5 mg Ondansetron HCl (Zofran Odt) 8 mg PO Q8H PRN PRN Reason: Nausea/Vomiting Pantoprazole Sodium (Protonix Susp) 40 mg PO DAILY [facility] Physical Exam - Constitutional Appears: Well, No Acute Distress - Head Exam Head Exam: ATRAUMATIC, NORMOCEPHALIC - Eye Exam Eye Exam: EOMI - ENT Exam ENT Exam: Mucous Membranes Moist - Neck Exam Neck exam: Positive for: Full Rom, Normal Inspection - Respiratory Exam Respiratory Exam: Clear to Auscultation Bilateral, NORMAL BREATHING PATTERN. absent: Rales, Rhonchi, Wheezes - Cardiovascular Exam Cardiovascular Exam: REGULAR RHYTHM, +S1, +S2 - GI/Abdominal Exam GI & Abdominal Exam: Soft. absent: Guarding, Rebound, Tenderness - Rectal Exam Rectal Exam: Deferred - Extremities Exam Extremities exam: Positive for: normal inspection - Neurological Exam Neurological exam: Alert Additional comments: Oriented x 2; able to move his upper and lower extremities with 5/5 strength on the left side; decreased strength 2/5 on the right side - Psychiatric Exam Psychiatric exam: Normal Affect - Skin Skin Exam: Dry, Intact, Normal Color, Warm Results - Vital Signs Recent Vital Signs: Last Vital Signs Temp 97.5 F L 04/18/17 17:36 Pulse 103 H 06/02/16 22:22 Resp 18 06/02/16 17:36 BP 182/85 H 06/02/16 22:22 Pulse Ox 94 L 06/02/16 06:00 - Labs Result Diagrams: 06/02/16 06:15 06/02/16 06:15 Labs: Laboratory Results - last 24 hr 06/01/16 06/02/16 06/02/16 22:06 06:15 17:43 WBC 11.2 H D RBC 5.01 Hgb 13.3 L Hct 38.6 L MCV 77.0 L MCH 26.5 MCHC 34.5 RDW 14.9 H Plt Count 444 MPV 11.1 H Gran % 73.4 H Lymph % (Auto) 13.5 L Pratt % (Auto) 10.9 H Eos % (Auto) 1.7 Baso % (Auto) 0.5 Gran # 8.21 H Lymph # 1.5 Pratt # 1.2 H Eos # 0.2 Baso # 0.06 PT 15.6 H INR 1.44 H APTT 33.8 H Sodium 144 Potassium 3.4 L Chloride 107 Carbon Dioxide 26 Anion Gap 14 BUN 8 Creatinine 0.9 Est GFR ( Amer) > 60 Est GFR (Non-Af Amer) > 60 POC Glucose (mg/dL) 107 104 Random Glucose 85 Calcium 9.0 Total Bilirubin 1.1 AST 54 ALT 43 Alkaline Phosphatase 97 Total Protein 7.6 Albumin 3.1 Globulin 4.5 Albumin/Globulin Ratio 0.7 L 06/02/16 21:19 WBC RBC Hgb Hct MCV MCH MCHC RDW Plt Count MPV Gran % Lymph % (Auto) Pratt % (Auto) Eos % (Auto) Baso % (Auto) Gran # Lymph # Pratt # Eos # Baso # PT INR APTT Sodium Potassium Chloride Carbon Dioxide Anion Gap BUN Creatinine Est GFR ( Amer) Est GFR (Non-Af Amer) POC Glucose (mg/dL) 109 Random Glucose Calcium Total Bilirubin AST ALT Alkaline Phosphatase Total Protein Albumin Globulin Albumin/Globulin Ratio - Imaging and Cardiology MRI - head Status: Report reviewed by me (tiny 4mm focus of acute hemorrhage in the left posterior frontal deep white matter. No evidence of acute infarct. Extensive tiny foci of chronic intracranial hemorrhage, diffuse in nature; ?amyloid angiopathy vs cerebral hypertensive vasculopathy, extensive caverous malformations or vasculitis.) Assessment & Plan - Assessment and Plan (Free Text) Assessment: 65 y/o male with a PMHx Htn, CVA with residual right sided weakness, pneumonia and Hep C was admitted to the hospital for a possible CVA. MRI of the brain reveals a 4mm area concerning for a possible acute hemorrhage. At this time the patient does not appear to have any sequelae of his findings on MRI; his current vital signs are 146/94mm Hg, Hr: 98, rr: 18 and he is in no acute distress. Upon reviewing the chart, it appears he has been poorly controlled in terms of his blood pressure throughout the day; I will order Hyrdalazine prn for better control of his blood pressure to avoid worsening of this hemorhage; I will defer to neurology in terms of repeat imaging to assess the size and magnitude of this bleed; at this time there is no shift or mass effect noted. I will also ensure patient has neuro-checks and seizure precautions in place. Given that he is currently stable, his status is a DNR/DNI he will not benefit from a transfer to the ICU at this time and may remain on the telemetry floor for further care. In the event that his condition changes/worsens/deteriorates overnight, I will be available to re-evaluate him as needed.
[2016-06-03] MEDS: Piperacillin/Tazobact 2.25gm 100 ML IVPB SCH ×3 (00:10→12:04)
[2016-06-03] MEDS ORDERED: Labetalol 5 mg/ml Inj 20ML IV ONE (05:21)
[2016-06-03] MEDS: Vancomycin 1gm in NS 250ml 250 ML IVPB SCH ×2 (05:54→19:35)
[2016-06-03 07:24] LABS: ADD MANUAL DIFF? NO
[2016-06-03 07:27] LABS: BASO # 0.05 K/mm3 (0.0-2.0); BASO % 0.4 % (0.0-3.0); EOS # 0.1 (0.0-0.7); EOS % 0.4 % (1.5-5.0); GRAN # 11.04 (1.4-6.5); GRAN % 79.1 % (50.0-68.0); HEMATOCRIT 35.6 % (42.0-52.0); LYMPH # 1.4 (1.2-3.4); LYMPH % 10.1 % (22.0-35.0); MEAN CELL VOLUME 75.4 fL (80.0-105.0); MEAN CORPUSCULAR HEMOGLOBIN 25.8 pg (25.0-35.0); MEAN CORPUSCULAR HGB CONC 34.3 g/dl (31.0-37.0); MEAN PLATELET VOLUME 10.9 fl (7.0-11.0); MONO # 1.4 (0.1-0.6); PLATELET COUNT 451 10^3/uL (120.0-450.0); RED CELL DISTRIBUTION WIDTH 14.5 % (11.5-14.5)
[2016-06-03 07:51] LABS: ALB/GLOB RATIO 0.7 (1.1-1.8); ALKALINE PHOSPHATASE 87 U/L (38-133); ALT/SGPT 43 U/L (7-56); AST/SGOT 53 U/L (15-59); BILIRUBIN,TOTAL 1.2 mg/dL (0.2-1.3); BLOOD UREA NITROGEN 7 mg/dL (7-21); CALCIUM 9.1 mg/dL (8.4-10.5); CARBON DIOXIDE 24 mmol/L (21-33); CHLORIDE 105 mmol/L (98-107); GFR AFRICAN-AMERICAN > 60; GLUCOSE,RANDOM 92 mg/dL (70-110); SODIUM 142 mmol/L (132-148); TOTAL PROTEIN 7.6 g/dL (5.8-8.3)
[2016-06-03] MEDS ORDERED: Potassium Chloride 20 mEq ER Tab PO ONE ×2 (08:46→10:00)
[2016-06-03] MEDS: Pantoprazole 40 mg Susp UD PO SCH (10:32)
--- NOTE | 2016-06-03 12:44 | PN ---
DATE: 06/03/2016 NEUROLOGY FOLLOWUP CHIEF COMPLAINT: Followup for change in mental status. SUBJECTIVE: The patient is seen and examined at bedside. He still has residual right-sided hemipare sis from prior CVA, which is seen on his MRI brain. He is on antibiotics for underlying pneumonia, w hich shows right hilar prominence. He underwent an MRI of the brain, which I disagree with the findi ng that the left posterior frontal deep white and tiny focus of acute hemorrhage is likely old, and t hese are all scattered foci of chronic intracranial hemorrhage, which is consistent with cerebral gayle loid angiopathy. He has left MCA encephalomalacia, which is from his prior stroke. His blood pressu res have been difficult to control. It has been systolically and diastolically elevated, and some me dications are slightly being adjusted. He is on Zosyn and vancomycin for underlying pneumonia. He h ad low potassium today, which is 3. 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 REVIEW OF SYSTEMS: A 14-point review of systems is negative except for the HPI. FAMILY HISTORY: Noncontributory. SOCIAL HISTORY: No illicit drug use, smoking, or EtOH abuse. He has a home ____ daily. ALLERGIES: No known drug allergies. FAMILY HISTORY: Noncontributory. MEDICATIONS: Reviewed by nurse's reconciliation sheet. PHYSICAL EXAMINATION: VITAL SIGNS: Temperature 99, pulse rate of 106, blood pressure 179/92, respiratory rate of 18, oxyge n saturation 95% by room air. GENERAL: The patient is sitting up in bed in no acute distress. HEENT: Atraumatic, normocephalic. PERRLA. Extraocular muscles intact. NECK: Supple. No JVD, no adenopathy noted. LUNGS: Slight decreased breath sounds bilaterally. HEART: S1, S2, normal rate and rhythm. No murmurs, rubs, or gallops. ABDOMEN: Soft, nontender, nondistended. Bowel sounds present. EXTREMITIES: No clubbing, no cyanosis. Peripheral pulses 2+ felt bilaterally. NEUROLOGIC: The patient is alert, oriented to person and place, ____ year. Recall after 5 minutes i s 0/3. Poor attention span. Slow thought process. Cannot spell the word world backwards. Speech i s dysarthric, residual from his prior CVA, but no aphasia noted. Cranial nerves II-XII are intact. MOTOR: Has right-sided hemiparesis, was spastic in nature, which is residual from the prior CVA. Ot herwise moves the left side is intact. Toes are downgoing bilaterally. SENSORY: Light touch, pinprick, proprioception, vibration intact. DTRs are 1+ throughout. COORDINATION: [id number] intact on the left. Difficult with the right due to residual right hem iparesis from prior CVA. LABORATORY DATA: Sodium is 142, potassium 3, chloride of 105, carbon dioxide 24, BUN of 7, creatinin e 0.9, random glucose 92. ASSESSMENT AND PLAN: This is a 65-year-old man with history of hypertension, history of a left middl e cerebral artery encephalomalacia, would indicate a prior cerebrovascular accident with residual rig ht-sided weakness, history of transient ischemic attacks. Has cognitive impairment. MRI brain is co nsistent with micro infarcts, which are chronic in nature, likely from cerebral amyloid angiopathy, a nd I disagree with the current MRI report. At this time, he has evidence of cerebral amyloid angiopa thy seen on his MRI, which is likely secondary to his uncontrolled blood pressure, and therefore, his transient elevation of blood pressure with superimposed underlying pneumonia can be a reason for flu ctuating mental status. At this time, I recommend: 1. Baby aspirin 325 mg p.o. daily for stroke prevention. 2. Continue with antibiotics such as vancomycin and Zosyn for his underlying pneumonia. 3. Keep his systolic blood pressure between 120-130 mmHg. 4. He is on Cymbalta 20 mg p.o. daily, as antidepressant with prior cerebrovascular accident. 5. 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 At this time, we will need possibly acute rehab, and continue with current present medical александр godfrey. Thank you for this consult. We will sign off. Please reconsult if necessary. Travis Finney MD cc: [phone] TT: 06/03/2016 12:43:59 Confirmation # [id number] Dictation # [id number]
--- NOTE | 2016-06-03 14:09 | CP.PCM.PN ---
Subjective - Date & Time of Evaluation Date of Evaluation: 06/03/16 Time of Evaluation: 13:15 - Subjective Subjective: Infectious Disease Follow Up: June 03, 2016 65 yo male with presentation to the hospital after being found on the floor by his caregiver. The patient had been found by his transporter radiology again on the floor with left sided weakness. EMS also reported left sided weakness. In ER the weakness resolved. This is the third episode within the past 30 days now. Patient is still denying symptoms. Patient had swallowing test done and failed it. He appears at his baseline today for the most part but speech is frequently garbled... more so than previous admissions. Objective - Vital Signs/Intake and Output Vital Signs (last 24 hours): Temp Pulse Resp BP Pulse Ox 98.7 F 119 H 21 155/99 H 95 06/03/16 12:00 06/03/16 12:00 06/03/16 12:00 06/03/16 12:00 06/03/16 06:00 Intake and Output: 06/03/16 06/03/16 06:59 18:59 Intake Total 1190 Output Total 400 Balance 790 - Medications Medications: Current Medications Acetaminophen (Tylenol 325mg Tab) 650 mg PO Q6H PRN PRN Reason: Fever >100.4 F Aspirin (Aspirin) 325 mg PO DAILY [facility] Atenolol (Tenormin) 25 mg PO BID [facility] Last Admin: 06/03/16 10:34 Dose: 25 mg Clonidine HCl (Catapres) 0.1 mg PO TID PRN PRN Reason: Systolic Blood Pressure Last Admin: 06/03/16 03:59 Dose: 0.1 mg Duloxetine HCl (Cymbalta) 20 mg PO DAILY [facility] Last Admin: 06/03/16 10:32 Dose: 20 mg Hydralazine HCl (Apresoline) 10 mg IVP Q4H PRN PRN Reason: Systolic Blood Pressure Last Admin: 06/03/16 02:53 Dose: 10 mg Hydralazine HCl (Apresoline) 20 mg IVP Q4H PRN PRN Reason: Systolic Blood Pressure Vancomycin HCl (Vancomycin 1gm) 250 mls @ 167 mls/hr IVPB Q12H [facility]ONATHAN PRN Reason: Protocol Last Admin: 06/03/16 05:54 Dose: Not Given Piperacillin Sod/Tazobactam Sod (Zosyn 2.25 Gm In 0.9% 100 Ml) 100 mls @ 100 mls/hr IVPB Q6 [facility]ONATHAN PRN Reason: Protocol Last Admin: 06/03/16 12:04 Dose: 100 mls/hr Lisinopril (Zestril) 20 mg PO DAILY [facility] Ondansetron HCl (Zofran Odt) 8 mg PO Q8H PRN PRN Reason: Nausea/Vomiting Pantoprazole Sodium (Protonix Susp) 40 mg PO DAILY [facility] Last Admin: 06/03/16 10:32 Dose: 40 mg - Labs Labs: 06/03/16 06:30 06/03/16 06:30 PT 15.6 Seconds (9.9-11.8) H 06/02/16 06:15 INR 1.44 (0.93-1.08) H 06/02/16 06:15 APTT 33.8 Seconds (23.7-30.8) H 06/02/16 06:15 - Constitutional Appears: Non-toxic, No Acute Distress, Chronically Ill - Head Exam Head Exam: ATRAUMATIC, NORMOCEPHALIC - Eye Exam Eye Exam: EOMI, PERRL Pupil Exam: NORMAL ACCOMODATION, PERRL - ENT Exam ENT Exam: Mucous Membranes Moist, Normal External Ear Exam, TM's Normal Bilaterally - Neck Exam Neck Exam: Full ROM, Normal Inspection - Respiratory Exam Respiratory Exam: Clear to Ausculation Bilateral, NORMAL BREATHING PATTERN. absent: Rales, Rhonchi, Wheezes - Cardiovascular Exam Cardiovascular Exam: REGULAR RHYTHM, RRR, +S1, +S2 - GI/Abdominal Exam GI & Abdominal Exam: Soft, Normal Bowel Sounds. absent: Distended, Tenderness - Extremities Exam Extremities Exam: Joint Swelling, Pedal Edema Additional comments: right sided chronic weakness - Neurological Exam Neurological Exam: Alert, Awake, CN II-XII Intact Additional comments: AAO x 2 - 3 right sided weakness. - Psychiatric Exam Psychiatric exam: Normal Affect, Normal Mood - Skin Skin Exam: Intact, Normal Color Assessment and Plan - Assessment and Plan (Free Text) Assessment: 65 yo AA male returning for the third time for similar symptoms of AMS and left sided weakness that appears to have resolved by the time he arrived in the ER. EMS verified the AMS and left sided weakness in the field. Given this is the third episode, the patient overall judgement does appear impaired at this point. Supportive care. He has been started on Zosyn and Vancomycin empirically. Worsening LLL pneumonia? Most likely repeated and continuous Aspiration pneumonia episodes. Patient continues to deny any symptoms. CT Head was performed and results noted. Thank you for allowing me to participate in the care of the patient, we will follow with you.
--- NOTE | 2016-06-03 17:23 | CP.PCM.PN ---
<Sarah Corley - Last Filed: 06/03/16 23:01> Subjective - Date & Time of Evaluation Date of Evaluation: 06/03/16 Time of Evaluation: 03:00 - Subjective Subjective: Hospitalist progress note for Dr. Lambert Pt s/e at bedside this AM. NAEO. Patient states that he is feeling better and that his L Sided weakness has resolved. Denies any CP, SOB, headache, acute vision changes, acute numbness or tingling or focal weakness, dysuria, hematuria. Objective - Vital Signs/Intake and Output Vital Signs (last 24 hours): Temp Pulse Resp BP Pulse Ox 98.7 F 119 H 21 155/99 H 95 06/03/16 12:00 06/03/16 12:00 06/03/16 12:00 06/03/16 12:00 06/03/16 06:00 Intake and Output: 06/03/16 06/03/16 06:59 18:59 Intake Total 1190 500 Output Total 400 Balance 790 500 - Medications Medications: Current Medications Acetaminophen (Tylenol 325mg Tab) 650 mg PO Q6H PRN PRN Reason: Fever >100.4 F Aspirin (Aspirin) 325 mg PO DAILY [facility] Atenolol (Tenormin) 25 mg PO BID [facility] Last Admin: 06/03/16 10:34 Dose: 25 mg Clonidine HCl (Catapres) 0.1 mg PO TID PRN PRN Reason: Systolic Blood Pressure Last Admin: 06/03/16 03:59 Dose: 0.1 mg Duloxetine HCl (Cymbalta) 20 mg PO DAILY [facility] Last Admin: 06/03/16 10:32 Dose: 20 mg Hydralazine HCl (Apresoline) 10 mg IVP Q4H PRN PRN Reason: Systolic Blood Pressure Last Admin: 06/03/16 02:53 Dose: 10 mg Hydralazine HCl (Apresoline) 20 mg IVP Q4H PRN PRN Reason: Systolic Blood Pressure Vancomycin HCl (Vancomycin 1gm) 250 mls @ 167 mls/hr IVPB Q12H JONATHAN PRN Reason: Protocol Last Admin: 06/03/16 05:54 Dose: Not Given Piperacillin Sod/Tazobactam Sod (Zosyn 3.375 In Ns 100ml) 100 mls @ 200 mls/hr IVPB Q6 JONATHAN PRN Reason: Protocol Stop: 06/09/16 00:29 Lisinopril (Zestril) 20 mg PO DAILY [facility] Ondansetron HCl (Zofran Odt) 8 mg PO Q8H PRN PRN Reason: Nausea/Vomiting Pantoprazole Sodium (Protonix Susp) 40 mg PO DAILY [facility] Last Admin: 06/03/16 10:32 Dose: 40 mg - Labs Labs: 06/03/16 06:30 06/03/16 06:30 PT 15.6 Seconds (9.9-11.8) H 06/02/16 06:15 INR 1.44 (0.93-1.08) H 06/02/16 06:15 APTT 33.8 Seconds (23.7-30.8) H 06/02/16 06:15 - Constitutional Appears: Well, Non-toxic, No Acute Distress - Head Exam Head Exam: ATRAUMATIC, NORMOCEPHALIC - Eye Exam Eye Exam: EOMI, Normal appearance. absent: Conjunctival injection, Scleral icterus - ENT Exam ENT Exam: Mucous Membranes Moist, Normal Oropharynx - Respiratory Exam Respiratory Exam: Clear to Ausculation Bilateral. absent: Accessory Muscle Use , Respiratory Distress - Cardiovascular Exam Cardiovascular Exam: Tachycardia, REGULAR RHYTHM, +S1, +S2 - GI/Abdominal Exam GI & Abdominal Exam: Soft. absent: Distended, Tenderness - Extremities Exam Extremities Exam: Normal Capillary Refill, Pedal Edema (pedal edema in the right leg). absent: Calf Tenderness, Tenderness - Neurological Exam Neurological Exam: Alert, Awake, Oriented x3 Neuro motor strength exam: Left Upper Extremity: 4, Right Upper Extremity: 0, Left Lower Extremity: 4, Right Lower Extremity: 0 Additional comments: dysarthria - Psychiatric Exam Psychiatric exam: Normal Affect, Normal Mood - Skin Skin Exam: Dry, Intact, Normal Color, Warm Assessment and Plan - Assessment and Plan (Free Text) Assessment: 65 year old male with past medical history of hypertension, CVA with residual right sided hemiparesis, pneumonia, hep c, and depression presents to the ED after found to have AMS and left sided weakness by rehabilitation inspector. Patient is DNR/ DNI. Patient found to have worsening left sided pneumonia on chest x-ray. Plan: 1) CVA * right sided hemiparesis * CT head showed no acute intracranial findings, no mas effect or edema, chroninc microvascular changes in periventricular white matter in left basal ganglia and thalamus * MRI: Tiny 4 mm focus of acute hemorrhage in the left posterior frontal deep white matter. No evidence of acute infarct, Extensive (too numerous to count) mostly tiny foci of chronic intracranial hemorrhage, diffuse in nature. Could be related to cerebral amyloid angiopathy, cerebral hypertensive vasculopathy, extensive cavernous malformations, or cerebral vasculitis. Findings compatible with a large, chronic hemorrhage in the left basal ganglia * Per neurology, MRI findings likely chronic cerebral amyloid angiopathy, not acute hemorrhage. Recommends strict BP control and resuming ASA * ASA PO * PT eval: OOBTC, repositioning Q2 hours * Dysphagia, fine chopped thin liquids diet * Restart BP medications to control BP, increase lisinopril to 20mg * Cardiology consulted--appreciate recs 2) HCAP * Patient admitted for CAP recently * CXR this admission showed worsening left lower lobe infiltrate * ID consulted, help appreciated * Pt afebrile * Started on Vanc and Zosyn * BNP elevated at 4280 * PROCAL: 0.22 * f/U BLOOD culture: NGTDx24 hours * f/u URINE AND SPUTUM CULTURES 3) Hypotension: resolved. Hypertensive now. 4) HTN * Tight control * lisinopril 20mg, atenolol 25 BID, hydralazine 10 and 20mg PRN for moderate and severe HTN * continue to monitor * cardiology consulted--appreciate recs 4) Electrolyte abnormalities * Potassium 3.2 ->3.4->3.0 * supplement with 60mEq Kdur * continue to monitor 5) Depression * Cymbalta 30mg daily 6) Hep C * Patient positive for Hep C on recent admission * referred to [facility] for treatment * monitor LFT's 9) Prophylactic measures * Protonix for GI ppx * Zofran for nausea and vomiting * SCD's * anticogulation contraindicated due to possible acute CVA/TIA Assessment and plan discussed with Dr. Sherin Corley PGY1 <Sherin Lambert - Last Filed: 06/08/16 14:00> Objective - Vital Signs/Intake and Output Vital Signs (last 24 hours): Temp Pulse Resp BP Pulse Ox 98.4 F 76 20 125/74 95 06/05/16 12:00 06/05/16 14:00 06/05/16 12:00 06/05/16 13:19 06/05/16 06:00 - Labs Labs: 06/04/16 06:45 06/04/16 06:45 PT 15.6 Seconds (9.9-11.8) H 06/02/16 06:15 INR 1.44 (0.93-1.08) H 06/02/16 06:15 APTT 33.8 Seconds (23.7-30.8) H 06/02/16 06:15 Attending/Attestation - Attestation I have personally seen and examined this patient.: Yes I have fully participated in the care of the patient.: Yes I have reviewed all pertinent clinical information, including history, physical exam and plan: Yes Notes (Text): I have seen and examined patient at bedside with resident.This is a 65 year old male with history of hypertension, CVA, with residual right sided hemiparesis and chronic expressive aphasia, pneumonia, hep c, and depression who was brought in by health aid for evaluation of new Left sided weakness which was resolved upon admission. Patient was admitted to rule out TIA. CT scan did not show any acute changes. MRI showed possible acute 4 mm hemorrhage versus chronic myeloid angiopathy. MRI reviewed by neurologist. MRI findings suggestive of hypertensive encephalopathy chronic. Continued aspirin and antihypertensives medication. He is also on vanco and zosyn for HCAP. He also has known Hep C and he has been referred to [facility] but he has never been there. He does not follow up with physicians. Patient was advised by disease case manager rn and social work faculty member for long-term placement. Patient refused LTAC or residential last time. We will discuss with him. Dr Sherin Lambert
--- NOTE | 2016-06-03 17:27 | CON ---
DATE: 06/03/2016 REASON FOR CONSULTATION: Moderate to severe aortic insufficiency. HISTORY OF PRESENT ILLNESS: The patient is a 65-year-old male who has a history of CVA with residual right hemiplegia and expressive aphasia. He was brought to the Emergency Room because of left-sided weakness that he reported to his professor of musicology. The patient stated that his left side weakness improve d upon his arrival to the Emergency Room. He denies any chest pain or shortness of breath. MEDICATIONS: Protonix 40 mg p.o. once a day, atenolol 25 mg twice a day, vancomycin 1 gram intraveno usly twice a day, Zestril 20 mg once a day, Zofran 4 mg p.o. q. 8 hours, Zosyn 3.375 grams intraveno usly q. 6 hours. PHYSICAL EXAMINATION: GENERAL: The patient is a middle-aged male who does not appear to be in any acute distress. VITAL SIGNS: Blood pressure 155/99, heart rate 119, temperature 98.7, respirations 21. HEENT: Loss of right nasolabial fold. NECK: No JVD. CHEST: Clear. HEART: S1, S2 regular. EXTREMITIES: No edema. LABORATORY DATA: CBC: WBC 14, hemoglobin and hematocrit 12.2 and 35.6, platelet count 451,000. SMA -7 is within normal limits except for potassium 3.0. ProBNP is 4281. Troponin 0.02. INR is 1.44. PTT 33.8. EKG revealed sinus rhythm at rate 72, possible left atrial enlargement. Left axis deviati on. T-wave abnormality, consider lateral ischemia. Prolonged QT interval. The patient's echocardio graph study report on 05/15/2016 revealed ejection fraction of 50%, moderate to severe aortic insuffi ciency, mild mitral insufficiency, small pericardial effusion, small to moderate pleural effusion, no vegetation or thrombus noted. A brain MRI reported tiny 4 mm focus of acute hemorrhage in the left posterior frontal deep white matter, no evidence of acute infarct. Extensive, mostly tiny foci of ch ronic intracranial hemorrhage, diffuse in nature. Findings of uncertain etiology, but could be relate d to cerebral amyloid angiopathy. Cerebral hypertensive crisis vasculopathy. Extensive cavernous ma lformations or cerebellar vasculitis. Findings compatible with chronic hemorrhage in the left basal ganglia. Review of neurologist's comment on the findings of the CAT scan. Dr. Finney stated th at he disagrees with the findings, that the left posterior frontal deep white matter tiny focus of he morrhage is likely old and the scattered foci of chronic intracranial hemorrhage, which is consistent with cerebellar amyloid angiopathy. ASSESSMENT: 1. Uncontrolled hypertension. 2. Left middle cerebral artery old infarct and encephalomalacia. 3. Hypokalemia. 4. Normal EKG with possibility of lateral ischemia. The most recent Lexiscan this month revealed pr obably abnormal SPECT myocardial perfusion study. Fixed inferolateral defect suspicious of previous myocardial injury. Normal gated wall motion. RECOMMENDATIONS: Continue current Zestril 20 mg daily, atenolol 25 mg twice a day. Continue IV Zosy n and IV vancomycin and follow blood cultures. The patient is not a suitable candidate for anticoagu lation therapy in view of the recent MRI findings. Segun Vieyra MD cc: [id number] TT: 06/03/2016 17:26:34 Confirmation # [id number] Dictation # [id number] ln
[2016-06-03] MEDS: Piperacillin/Tazobact 3.375 gm 100 ML IVPB SCH (17:55)
[2016-06-04] MEDS: Piperacillin/Tazobact 3.375 gm 100 ML IVPB SCH ×5 (00:08→23:02)
[2016-06-04] MEDS: Vancomycin 1gm in NS 250ml 250 ML IVPB SCH ×2 (06:04→18:14)
[2016-06-04 07:20] LABS: ADD MANUAL DIFF? NO
[2016-06-04 07:25] LABS: BASO # 0.02 K/mm3 (0.0-2.0); BASO % 0.2 % (0.0-3.0); EOS # 0.1 (0.0-0.7); EOS % 1.3 % (1.5-5.0); GRAN # 7.37 (1.4-6.5); GRAN % 73.2 % (50.0-68.0); HEMATOCRIT 33.5 % (42.0-52.0); LYMPH # 1.3 (1.2-3.4); LYMPH % 13.2 % (22.0-35.0); MEAN CELL VOLUME 75.8 fL (80.0-105.0); MEAN CORPUSCULAR HEMOGLOBIN 25.6 pg (25.0-35.0); MEAN CORPUSCULAR HGB CONC 33.7 g/dl (31.0-37.0); MEAN PLATELET VOLUME 10.5 fl (7.0-11.0); MONO # 1.2 (0.1-0.6); MONO % 12.1 % (1.0-6.0); PLATELET COUNT 429 10^3/uL (120.0-450.0); RED CELL DISTRIBUTION WIDTH 14.7 % (11.5-14.5); WHITE BLOOD COUNT 10.1 10^3/ul (4.5-11.0)
[2016-06-04 07:47] LABS: ALB/GLOB RATIO 0.7 (1.1-1.8); ALKALINE PHOSPHATASE 75 U/L (38-133); ALT/SGPT 32 U/L (7-56); AST/SGOT 40 U/L (15-59); BILIRUBIN,TOTAL 1.1 mg/dL (0.2-1.3); BLOOD UREA NITROGEN 7 mg/dL (7-21); CARBON DIOXIDE 25 mmol/L (21-33); CHLORIDE 107 mmol/L (98-107); GFR AFRICAN-AMERICAN > 60; GLUCOSE,RANDOM 80 mg/dL (70-110); POTASSIUM 3.3 mmol/L (3.6-5.0); SODIUM 143 mmol/L (132-148); TOTAL PROTEIN 7.1 g/dL (5.8-8.3)
[2016-06-04] MEDS ORDERED: Potassium Chloride 20 mEq ER Tab PO ONE (09:31)
--- NOTE | 2016-06-04 09:36 | CP.PCM.PN ---
Objective - Vital Signs/Intake and Output Vital Signs (last 24 hours): Temp Pulse Resp BP Pulse Ox 98.3 F 96 H 20 157/86 H 96 06/04/16 05:50 06/04/16 05:50 06/04/16 05:50 06/04/16 05:50 06/04/16 05:50 Intake and Output: 06/04/16 06/04/16 06:59 18:59 Intake Total 1040 Output Total 0 Balance 1040 - Medications Medications: Current Medications Acetaminophen (Tylenol 325mg Tab) 650 mg PO Q6H PRN PRN Reason: Fever >100.4 F Aspirin (Aspirin) 325 mg PO DAILY [facility] Atenolol (Tenormin) 25 mg PO BID [facility] Last Admin: 06/03/16 17:56 Dose: 25 mg Clonidine HCl (Catapres) 0.1 mg PO TID PRN PRN Reason: Systolic Blood Pressure Last Admin: 06/03/16 03:59 Dose: 0.1 mg Duloxetine HCl (Cymbalta) 20 mg PO DAILY [facility] Last Admin: 06/03/16 10:32 Dose: 20 mg Hydralazine HCl (Apresoline) 10 mg IVP Q4H PRN PRN Reason: Systolic Blood Pressure Last Admin: 06/03/16 22:06 Dose: 10 mg Hydralazine HCl (Apresoline) 20 mg IVP Q4H PRN PRN Reason: Systolic Blood Pressure Vancomycin HCl (Vancomycin 1gm) 250 mls @ 167 mls/hr IVPB Q12H JONATHAN PRN Reason: Protocol Last Admin: 06/04/16 06:04 Dose: 167 mls/hr Piperacillin Sod/Tazobactam Sod (Zosyn 3.375 In Ns 100ml) 100 mls @ 200 mls/hr IVPB Q6 JONATHAN PRN Reason: Protocol Stop: 06/09/16 00:29 Last Admin: 06/04/16 05:21 Dose: 200 mls/hr Lisinopril (Zestril) 20 mg PO DAILY [facility] Ondansetron HCl (Zofran Odt) 8 mg PO Q8H PRN PRN Reason: Nausea/Vomiting Pantoprazole Sodium (Protonix Susp) 40 mg PO DAILY [facility] Last Admin: 06/03/16 10:32 Dose: 40 mg Potassium Chloride (K-Dur 20 Meq Er Tab) 20 meq PO ONCE ONE Stop: 06/04/16 09:32 - Labs Labs: 06/04/16 06:45 06/04/16 06:45 PT 15.6 Seconds (9.9-11.8) H 06/02/16 06:15 INR 1.44 (0.93-1.08) H 06/02/16 06:15 APTT 33.8 Seconds (23.7-30.8) H 06/02/16 06:15 Assessment and Plan - Assessment and Plan (Free Text) Assessment: 65 year old male with past medical history of hypertension, CVA with residual right sided hemiparesis, pneumonia, hep c, and depression presents to the ED after found to have AMS and left sided weakness by glove pairer. Patient is DNR/ DNI. Patient found to have worsening left sided pneumonia on chest x-ray. Plan: 1) CVA * right sided hemiparesis * CT head showed no acute intracranial findings, no mas effect or edema, chroninc microvascular changes in periventricular white matter in left basal ganglia and thalamus * MRI: Tiny 4 mm focus of acute hemorrhage in the left posterior frontal deep white matter. No evidence of acute infarct, Extensive (too numerous to count) mostly tiny foci of chronic intracranial hemorrhage, diffuse in nature. Could be related to cerebral amyloid angiopathy, cerebral hypertensive vasculopathy, extensive cavernous malformations, or cerebral vasculitis. Findings compatible with a large, chronic hemorrhage in the left basal ganglia * Per neurology, MRI findings likely chronic cerebral amyloid angiopathy, not acute hemorrhage. Recommends strict BP control and resuming ASA * ASA PO * PT eval: OOBTC, repositioning Q2 hours * Dysphagia, fine chopped thin liquids diet * Restart BP medications to control BP, increase lisinopril to 20mg * Cardiology consulted--appreciate recs 2) HCAP * Patient admitted for CAP recently * CXR this admission showed worsening left lower lobe infiltrate * ID consulted, help appreciated * Pt afebrile * Started on Vanc and Zosyn * BNP elevated at 4280 * PROCAL: 0.22 * f/U BLOOD culture: NGTDx24 hours * f/u URINE AND SPUTUM CULTURES 3) Hypotension: resolved. Hypertensive now. 4) HTN * Tight control * lisinopril 20mg, atenolol 25 BID, hydralazine 10 and 20mg PRN for moderate and severe HTN * continue to monitor * cardiology consulted--appreciate recs 4) Electrolyte abnormalities * Potassium 3.2 ->3.4->3.0 * supplement with 60mEq Kdur * continue to monitor 5) Depression * Cymbalta 30mg daily 6) Hep C * Patient positive for Hep C on recent admission * referred to [facility] for treatment * monitor LFT's 9) Prophylactic measures * Protonix for GI ppx * Zofran for nausea and vomiting * SCD's * anticogulation contraindicated due to possible acute CVA/TIA
[2016-06-04] MEDS: Pantoprazole 40 mg Susp UD PO SCH (10:15)
[2016-06-04] MEDS ORDERED: Potassium Chloride 20 mEq ER Tab PO STA (12:17)
--- NOTE | 2016-06-04 14:04 | CP.PCM.DIS ---
<Jammie Hughes - Last Filed: 06/04/16 13:56> Provider - Provider Date of Admission: 06/01/16 17:14 Attending physician: Yeni Duran MD Primary care physician: Shawn Weaver MD Consults: Cardiology ID Time Spent in preparation of Discharge (in minutes): 45 Hospital Course - Lab Results Lab Results: Most Recent Lab Values WBC 10.1 10^3/ul (4.5-11.0) D 06/04/16 06:45 RBC 4.42 10^6/uL (3.5-6.1) 06/04/16 06:45 Hgb 11.3 gm/dL (14.0-18.0) L 06/04/16 06:45 Hct 33.5 % (42.0-52.0) L 06/04/16 06:45 MCV 75.8 fL (80.0-105.0) L 06/04/16 06:45 MCH 25.6 pg (25.0-35.0) 06/04/16 06:45 MCHC 33.7 g/dl (31.0-37.0) 06/04/16 06:45 RDW 14.7 % (11.5-14.5) H 06/04/16 06:45 Plt Count 429 10^3/uL (120.0-450.0) 06/04/16 06:45 MPV 10.5 fl (7.0-11.0) 06/04/16 06:45 Gran % 73.2 % (50.0-68.0) H 06/04/16 06:45 Lymph % (Auto) 13.2 % (22.0-35.0) L 06/04/16 06:45 Stokes % (Auto) 12.1 % (1.0-6.0) H 06/04/16 06:45 Eos % (Auto) 1.3 % (1.5-5.0) L 06/04/16 06:45 Baso % (Auto) 0.2 % (0.0-3.0) 06/04/16 06:45 Gran # 7.37 (1.4-6.5) H 06/04/16 06:45 Lymph # 1.3 (1.2-3.4) 06/04/16 06:45 Stokes # 1.2 (0.1-0.6) H 06/04/16 06:45 Eos # 0.1 (0.0-0.7) 06/04/16 06:45 Baso # 0.02 K/mm3 (0.0-2.0) 06/04/16 06:45 PT 15.6 Seconds (9.9-11.8) H 06/02/16 06:15 INR 1.44 (0.93-1.08) H 06/02/16 06:15 APTT 33.8 Seconds (23.7-30.8) H 06/02/16 06:15 pO2 37 mm/Hg (30-55) 06/01/16 16:25 VBG pH 7.38 (7.32-7.43) 06/01/16 16:25 VBG pCO2 40.0 (40-60) 06/01/16 16:25 VBG HCO3 23.7 mmol/l (21-28) 06/01/16 16:25 VBG Total CO2 24.9 mmol.L (22-28) 06/01/16 16:25 VBG O2 Sat (Calc) 66.8 % (40-65) H 06/01/16 16:25 VBG Base Excess -1.3 mmol/L (0.0-2.0) L 06/01/16 16:25 VBG Potassium 3.1 mmol/L (3.6-5.2) L 06/01/16 16:25 Sodium 141.0 mmol/L (132-148) 06/01/16 16:25 Chloride 109.0 mmol/L (98-107) H 06/01/16 16:25 Glucose 110 mg/dl (75-110) 06/01/16 16:25 Lactate 2.1 mmol/L (0.7-2.1) 06/01/16 16:25 FiO2 21.0 % 06/01/16 16:25 Sodium 143 mmol/L (132-148) 06/04/16 06:45 Potassium 3.3 mmol/L (3.6-5.0) L 06/04/16 06:45 Chloride 107 mmol/L (98-107) 06/04/16 06:45 Carbon Dioxide 25 mmol/L (21-33) 06/04/16 06:45 Anion Gap 14 (10-20) 06/04/16 06:45 BUN 7 mg/dL (7-21) 06/04/16 06:45 Creatinine 0.9 mg/dL (0.5-1.4) 06/04/16 06:45 Est GFR ( Amer) > 60 06/04/16 06:45 Est GFR (Non-Af Amer) > 60 06/04/16 06:45 POC Glucose (mg/dL) 88 mg/dL (65-110) 06/03/16 11:02 Random Glucose 80 mg/dL (70-110) 06/04/16 06:45 Hemoglobin A1c 6.0 % (4.2-6.5) 06/01/16 16:00 Calcium 9.0 mg/dL (8.4-10.5) 06/04/16 06:45 Total Bilirubin 1.1 mg/dL (0.2-1.3) 06/04/16 06:45 AST 40 U/L (15-59) 06/04/16 06:45 ALT 32 U/L (7-56) 06/04/16 06:45 Alkaline Phosphatase 75 U/L (38-133) 06/04/16 06:45 Lactate Dehydrogenase 499 U/L (333-699) 06/01/16 16:00 Total Creatine Kinase 45 U/L (35-230) 06/01/16 16:00 Troponin I 0.02 ng/mL D 06/01/16 16:00 NT-Pro-B Natriuret Pep 4280 pg/mL (0-450) H 06/01/16 16:00 Total Protein 7.1 g/dL (5.8-8.3) 06/04/16 06:45 Albumin 2.8 g/dL (3.0-4.8) L 06/04/16 06:45 Globulin 4.3 gm/dL 06/04/16 06:45 Albumin/Globulin Ratio 0.7 (1.1-1.8) L 06/04/16 06:45 Triglycerides 87 mg/dL (35-160) 06/01/16 16:00 Cholesterol 103 mg/dL (130-200) L 06/01/16 16:00 LDL Cholesterol Direct 36 mg/dL (0-129) 06/01/16 16:00 HDL Cholesterol 27 mg/dL (29-60) L 06/01/16 16:00 Procalcitonin 0.22 NG/ML (0.19-0.49) 06/01/16 16:00 Venous Blood Potassium 3.1 mmol/L (3.6-5.2) L 06/01/16 16:25 - Hospital Course Hospital Course: Patient is a 65 y/o AA M with PMHX of HTN, CVA with right sided hemiparesis, pneumonia, hep C, who was BIBA after 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 Per EMS, the patient was found to have left sided weakness and hypotensive. Per ER physician, the patient no longer had left sided weakness; however, code stroke was called. The patient is alert and able to answer questions. He denies any left sided weakness and altered mental status. He states his home health aid comes to his home between 2-4 and she called 911 and told him he was going to the hospital. He is able to give his name, hospital name, and year. He denies any chest pain, fever, chills, headache, nausea, vomiting, SOB, dysphagia, new weakness ,numbness, or tingling. He does have a productive cough with yellow sputum. Pt found to have worsening L side pneumonia on CXR . Kaz Andersen was giben. CT and MRI of the head showed no acute finding but chronic diffuse hemorrhage. BP was controlled. Over his hospital stay L side weakness resolved and pt passed swallow eval who recommended fine chopped diet with thin liquids. We recommended LTAC or NH. Pt refused and wants to go home with home care. Home care provider was called for instructions. Advance directive was taken care of. -BP control with meds -Aspiration precaution -Diet : Fine chopped diet -f/u with PMD Discharge Exam - Head Exam Head Exam: ATRAUMATIC, NORMOCEPHALIC - Eye Exam Eye Exam: EOMI, Normal appearance, PERRL Pupil Exam: NORMAL ACCOMODATION, PERRL - ENT Exam ENT Exam: Mucous Membranes Moist - Neck Exam Neck exam: Full Rom - Respiratory Exam Respiratory Exam: Clear to PA & Lateral, NORMAL BREATHING PATTERN, UNREMARKABLE - Cardiovascular Exam Cardiovascular Exam: REGULAR RHYTHM, +S1, +S2 - Extremities Exam Extremities exam: normal capillary refill, pedal pulses present Additional comments: R side extremities no motor function. Sensory intact - Neurological Exam Neurological exam: Alert, CN II-XII Intact, Motor Sensory Deficit, Oriented x3 - Psychiatric Exam Psychiatric exam: Normal Mood - Skin Skin Exam: Dry, Intact, Normal Color, Warm Discharge Plan - Follow Up Plan Condition: FAIR Disposition: HOME/ ROUTINE Patient education suggested?: Yes Additional Instructions: -Take BP medications, check blood pressure regularly -Follow up with your primary medical doctor -eat finely chopped food and thick liquids to prevent choking on food -Return to the ED if you have return of symptoms or any concerning new symptoms Referrals: Shawn Weaver MD [Primary Care Provider] - Don Billingsley MD [Staff Provider] - <Yeni Duran - Last Filed: 06/05/16 13:23> Provider - Provider Date of Admission: 06/01/16 17:14 Attending physician: Yeni Duran MD Primary care physician: Shawn Weaver MD Time Spent in preparation of Discharge (in minutes): 35 Hospital Course - Lab Results Lab Results: Most Recent Lab Values WBC 10.1 10^3/ul (4.5-11.0) D 06/04/16 06:45 RBC 4.42 10^6/uL (3.5-6.1) 06/04/16 06:45 Hgb 11.3 gm/dL (14.0-18.0) L 06/04/16 06:45 Hct 33.5 % (42.0-52.0) L 06/04/16 06:45 MCV 75.8 fL (80.0-105.0) L 06/04/16 06:45 MCH 25.6 pg (25.0-35.0) 06/04/16 06:45 MCHC 33.7 g/dl (31.0-37.0) 06/04/16 06:45 RDW 14.7 % (11.5-14.5) H 06/04/16 06:45 Plt Count 429 10^3/uL (120.0-450.0) 06/04/16 06:45 MPV 10.5 fl (7.0-11.0) 06/04/16 06:45 Gran % 73.2 % (50.0-68.0) H 06/04/16 06:45 Lymph % (Auto) 13.2 % (22.0-35.0) L 06/04/16 06:45 Stokes % (Auto) 12.1 % (1.0-6.0) H 06/04/16 06:45 Eos % (Auto) 1.3 % (1.5-5.0) L 06/04/16 06:45 Baso % (Auto) 0.2 % (0.0-3.0) 06/04/16 06:45 Gran # 7.37 (1.4-6.5) H 06/04/16 06:45 Lymph # 1.3 (1.2-3.4) 06/04/16 06:45 Stokes # 1.2 (0.1-0.6) H 06/04/16 06:45 Eos # 0.1 (0.0-0.7) 06/04/16 06:45 Baso # 0.02 K/mm3 (0.0-2.0) 06/04/16 06:45 PT 15.6 Seconds (9.9-11.8) H 06/02/16 06:15 INR 1.44 (0.93-1.08) H 06/02/16 06:15 APTT 33.8 Seconds (23.7-30.8) H 06/02/16 06:15 pO2 37 mm/Hg (30-55) 06/01/16 16:25 VBG pH 7.38 (7.32-7.43) 06/01/16 16:25 VBG pCO2 40.0 (40-60) 06/01/16 16:25 VBG HCO3 23.7 mmol/l (21-28) 06/01/16 16:25 VBG Total CO2 24.9 mmol.L (22-28) 06/01/16 16:25 VBG O2 Sat (Calc) 66.8 % (40-65) H 06/01/16 16:25 VBG Base Excess -1.3 mmol/L (0.0-2.0) L 06/01/16 16:25 VBG Potassium 3.1 mmol/L (3.6-5.2) L 06/01/16 16:25 Sodium 141.0 mmol/L (132-148) 06/01/16 16:25 Chloride 109.0 mmol/L (98-107) H 06/01/16 16:25 Glucose 110 mg/dl (75-110) 06/01/16 16:25 Lactate 2.1 mmol/L (0.7-2.1) 06/01/16 16:25 FiO2 21.0 % 06/01/16 16:25 Sodium 143 mmol/L (132-148) 06/04/16 06:45 Potassium 3.3 mmol/L (3.6-5.0) L 06/04/16 06:45 Chloride 107 mmol/L (98-107) 06/04/16 06:45 Carbon Dioxide 25 mmol/L (21-33) 06/04/16 06:45 Anion Gap 14 (10-20) 06/04/16 06:45 BUN 7 mg/dL (7-21) 06/04/16 06:45 Creatinine 0.9 mg/dL (0.5-1.4) 06/04/16 06:45 Est GFR ( Amer) > 60 06/04/16 06:45 Est GFR (Non-Af Amer) > 60 06/04/16 06:45 POC Glucose (mg/dL) 88 mg/dL (65-110) 06/03/16 11:02 Random Glucose 80 mg/dL (70-110) 06/04/16 06:45 Hemoglobin A1c 6.0 % (4.2-6.5) 06/01/16 16:00 Calcium 9.0 mg/dL (8.4-10.5) 06/04/16 06:45 Total Bilirubin 1.1 mg/dL (0.2-1.3) 06/04/16 06:45 AST 40 U/L (15-59) 06/04/16 06:45 ALT 32 U/L (7-56) 06/04/16 06:45 Alkaline Phosphatase 75 U/L (38-133) 06/04/16 06:45 Lactate Dehydrogenase 499 U/L (333-699) 06/01/16 16:00 Total Creatine Kinase 45 U/L (35-230) 06/01/16 16:00 Troponin I 0.02 ng/mL D 06/01/16 16:00 NT-Pro-B Natriuret Pep 4280 pg/mL (0-450) H 06/01/16 16:00 Total Protein 7.1 g/dL (5.8-8.3) 06/04/16 06:45 Albumin 2.8 g/dL (3.0-4.8) L 06/04/16 06:45 Globulin 4.3 gm/dL 06/04/16 06:45 Albumin/Globulin Ratio 0.7 (1.1-1.8) L 06/04/16 06:45 Triglycerides 87 mg/dL (35-160) 06/01/16 16:00 Cholesterol 103 mg/dL (130-200) L 06/01/16 16:00 LDL Cholesterol Direct 36 mg/dL (0-129) 06/01/16 16:00 HDL Cholesterol 27 mg/dL (29-60) L 06/01/16 16:00 Procalcitonin 0.22 NG/ML (0.19-0.49) 06/01/16 16:00 Venous Blood Potassium 3.1 mmol/L (3.6-5.2) L 06/01/16 16:25 - Hospital Course Hospital Course: attending note; I have seen and examined patient at bedside with resident. This is a 65 year old male with history of hypertension, CVA, pneumonia, hep c , and depression who was brought in by health aid for evaluation of new Left sided weakness which was resolved upon admission. Patient was admitted to rule out TIA. CT scan did not show any acute changes. MRI showed possible acute 4 mm hemorrhage versus chronic myeloid angiopathy. MRI reviewed by neurologist. MRI findings suggestive of hypertensive encephalopathy chronic. Continued aspirin and antihypertensives medication. Patient has chronic expressive aphasia. Patient has complete right Hemiplegia. currently with no Left sided weakness. physical therapy evaluation appreciated. Patient with baseline status. patient is tolerating diet well. Aspiration/fall precautions explained. Message left with patient's next of skin. Hypertension; medication adjusted. Prescription called in to [facility] pharmacy. Pneumonia; treated with IV vanco and zosyn. Cultures negative. He also has hep c. He has been referred to [facility] but he has never been there. He does not follow up with physicians. advised by case worker and bilingual social worker for long-term placement. Patient refused LTAC or snf. Patient will be going home. advised to follow-up with PMD. Advised to Follow-up blood pressure closely to avoid recurrent strokes. fall/aspiration precautions explained in detail. Diagnosis; uncontrolled hypertension CVA Noncompliance with follow-up Pneumonia Right hemiplegia Expressive aphasia
[2016-06-04] MEDS: Verapamil 240 mg ER Tab PO SCH (14:05)
--- NOTE | 2016-06-04 14:23 | CP.PCM.CON ---
History of Present Illness - History of Present Illness History of Present Illness: Palliative consult requested by Dr Destiney Duran Reason: Advance care planning HPI: Presented to ED with left sided weakness. He was found to be in hypertensive crisis upon arrival to ED. MRI of the brain showed tiny focus of acute hemorrhage in the left posterior deep white matter, with no evidence of acute infarct. Dr Finney feels this likely old scattered foci of chronic intracranial hemorrhage,which is consistent with cerebellar amyloid angiopathy. PMHx: CVA, right hemiplegia, expressive aphasia, HTN. Social History: Occasional smoker, occasional alcohol. Denies illicit drug use. Lives alone. Family History: Non Contributory. Advance Care Planning: The patient does not have an Advance Directive.He is DNR/ DNI. Review of Systems: As per HPI Past Patient History - Infectious Disease Hx of Infectious Diseases: None - Tetanus Immunizations Tetanus Immunization: Unknown - Past Medical History & Family History Past Medical History?: Yes - Past Social History Smoking Status: Former Smoker Alcohol: Social Drugs: Denies - CARDIAC Hx Cardiac Disorders: Yes Hx Hypertension: Yes - PULMONARY Hx Pneumonia: Yes - NEUROLOGICAL HX Cerebrovascular Accident: Yes (R sided weakness) - HEENT Hx HEENT Problems: No - RENAL Hx Chronic Kidney Disease: No - ENDOCRINE/METABOLIC Hx Endocrine Disorders: No - HEMATOLOGICAL/ONCOLOGICAL Hx Blood Disorders: No - INTEGUMENTARY Hx Dermatological Problems: No - MUSCULOSKELETAL/RHEUMATOLOGICAL Hx Falls: Yes - GASTROINTESTINAL Hx Gastrointestinal Disorders: No - GENITOURINARY/GYNECOLOGICAL Hx Genitourinary Disorders: No - PSYCHIATRIC Hx Substance Use: No - SURGICAL HISTORY Hx Surgeries: No (unknown, denied by home care nurse) Meds Allergies/Adverse Reactions: Allergies Allergy/AdvReac Type Severity Reaction Status Date / Time No Known Allergies Allergy Verified 06/01/16 16:02 - Medications Medications: Current Medications Acetaminophen (Tylenol 325mg Tab) 650 mg PO Q6H PRN PRN Reason: Fever >100.4 F Aspirin (Aspirin) 325 mg PO DAILY [facility] Last Admin: 06/04/16 10:15 Dose: 325 mg Atenolol (Tenormin) 25 mg PO BID [facility] Clonidine HCl (Catapres) 0.1 mg PO TID [facility] Last Admin: 06/04/16 14:04 Dose: 0.1 mg Duloxetine HCl (Cymbalta) 20 mg PO DAILY [facility] Last Admin: 06/04/16 10:14 Dose: 20 mg Hydralazine HCl (Apresoline) 10 mg IVP Q4H PRN PRN Reason: Systolic Blood Pressure Last Admin: 06/03/16 22:06 Dose: 10 mg Hydralazine HCl (Apresoline) 20 mg IVP Q4H PRN PRN Reason: Systolic Blood Pressure Vancomycin HCl (Vancomycin 1gm) 250 mls @ 167 mls/hr IVPB Q12H JONATHAN PRN Reason: Protocol Last Admin: 06/04/16 06:04 Dose: 167 mls/hr Piperacillin Sod/Tazobactam Sod (Zosyn 3.375 In Ns 100ml) 100 mls @ 200 mls/hr IVPB Q6 JONATHAN PRN Reason: Protocol Stop: 06/09/16 00:29 Last Admin: 06/04/16 11:34 Dose: 200 mls/hr Lisinopril (Zestril) 20 mg PO DAILY [facility] Last Admin: 06/04/16 10:14 Dose: 20 mg Ondansetron HCl (Zofran Odt) 8 mg PO Q8H PRN PRN Reason: Nausea/Vomiting Pantoprazole Sodium (Protonix Susp) 40 mg PO DAILY [facility] Last Admin: 06/04/16 10:15 Dose: 40 mg Verapamil HCl (Calan Sr Tab) 240 mg PO DAILY [facility] Last Admin: 06/04/16 14:05 Dose: 240 mg Physical Exam - Constitutional Appears: No Acute Distress, Chronically Ill - Head Exam Head Exam: NORMAL INSPECTION - Eye Exam Eye Exam: Normal appearance, PERRL - ENT Exam ENT Exam: Mucous Membranes Moist, Normal Oropharynx - Neck Exam Neck exam: Positive for: Normal Inspection - Respiratory Exam Respiratory Exam: Clear to Auscultation Bilateral, NORMAL BREATHING PATTERN - Cardiovascular Exam Cardiovascular Exam: REGULAR RHYTHM, +S1, +S2 - GI/Abdominal Exam GI & Abdominal Exam: Normal Bowel Sounds, Soft - Extremities Exam Additional comments: right hemipligea - Back Exam Back exam: NORMAL INSPECTION - Neurological Exam Neurological exam: Altered, Oriented x3 - Skin Skin Exam: Dry, Warm - Additional Findings Additional findings: Palliative performance scale rating 40% Results - Vital Signs Recent Vital Signs: Last Vital Signs Temp 97.7 F 06/04/16 12:00 Pulse 92 H 06/04/16 14:05 Resp 16 06/04/16 12:00 BP 175/102 H 06/04/16 14:05 Pulse Ox 96 06/04/16 05:50 - Labs Result Diagrams: 06/04/16 06:45 06/04/16 06:45 Labs: Laboratory Results - last 24 hr 06/04/16 06:45 WBC 10.1 D RBC 4.42 Hgb 11.3 L Hct 33.5 L MCV 75.8 L MCH 25.6 MCHC 33.7 RDW 14.7 H Plt Count 429 MPV 10.5 Gran % 73.2 H Lymph % (Auto) 13.2 L [place] % (Auto) 12.1 H Eos % (Auto) 1.3 L Baso % (Auto) 0.2 Gran # 7.37 H Lymph # 1.3 [place] # 1.2 H Eos # 0.1 Baso # 0.02 Sodium 143 Potassium 3.3 L Chloride 107 Carbon Dioxide 25 Anion Gap 14 BUN 7 Creatinine 0.9 Est GFR ( Amer) > 60 Est GFR (Non-Af Amer) > 60 Random Glucose 80 Calcium 9.0 Total Bilirubin 1.1 AST 40 ALT 32 Alkaline Phosphatase 75 Total Protein 7.1 Albumin 2.8 L Globulin 4.3 Albumin/Globulin Ratio 0.7 L Assessment & Plan - Assessment and Plan (Free Text) Assessment: 65 year old male admitted with uncontrolled hypertension, hypokalemia,previous CVA, encephalomalacia. Patient is alert and oriented. He affirms that he wishes to remain DNR/DNI. I explained the purpose of POLST. All questions answered. Patient is agreeable to enacting POLST. He named his friend Fanny as his health care surrogate. A copy of POLST is given to the patient. Time spent in discussion with patient regarding goasl of care and advance care planning, 20 minutes. Plan: POLST: DNR/DNI
--- NOTE | 2016-06-04 14:44 | PN ---
DATE: 06/04/2016 The patient is still dysarthric and he has right-sided weakness. He is feeding himself with his left hand. He denies any choking PHYSICAL EXAMINATION: VITAL SIGNS: Blood pressure 175/102, heart rate 92, temperature 97.6, respirations 16. HEENT: Loss of right nasolabial fold. NECK: No JVD. CHEST: Clear. HEART: S1, S2 regular. EXTREMITIES: No edema. LABORATORIES: Today's SMA-7 is within normal limits except for potassium of 3.3. ASSESSMENT: 1. Uncontrolled hypertension. 2. History of hemorrhagic cerebrovascular accident with amyloid changes. 3. Hypokalemia. RECOMMENDATIONS: The patient received 40 mEq of oral potassium replacement today. Case was discusse d with Dr. Duran. The patient will be maintained on atenolol 25 mg twice a day, clonidine 0.1 mg t.i.d. Verapamil 240 mg once a day, hydralazine 20 mg intravenous q. 4 hours p.r.n. Segun Vieyra MD cc: [id number] TT: 06/04/2016 14:43:54 Confirmation # [id number] Dictation # [id number] jose armando
--- NOTE | 2016-06-04 18:30 | CP.PCM.PN ---
Subjective - Date & Time of Evaluation Date of Evaluation: 06/04/16 Time of Evaluation: 16:45 - Subjective Subjective: Infectious Disease Follow Up: June 04, 2016 65 yo male with presentation to the hospital after being found on the floor by his caregiver. 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 EMS also reported left sided weakness. In ER the weakness resolved. This is the third episode within the past 30 days now. Patient is still denying symptoms. Patient had swallowing test done and failed it. He appears at his baseline today for the most part but speech is frequently and mostly garbled... more so than previous admissions. Objective - Vital Signs/Intake and Output Vital Signs (last 24 hours): Temp Pulse Resp BP Pulse Ox 97.7 F 85 16 157/86 H 96 06/04/16 12:00 06/04/16 17:25 06/04/16 12:00 06/04/16 17:25 06/04/16 05:50 Intake and Output: 06/04/16 06/04/16 06:59 18:59 Intake Total 1040 300 Output Total 0 400 Balance 1040 -100 - Medications Medications: Current Medications Acetaminophen (Tylenol 325mg Tab) 650 mg PO Q6H PRN PRN Reason: Fever >100.4 F Aspirin (Aspirin) 325 mg PO DAILY [facility] Last Admin: 06/04/16 10:15 Dose: 325 mg Atenolol (Tenormin) 25 mg PO BID [facility] Last Admin: 06/04/16 17:25 Dose: 25 mg Clonidine HCl (Catapres) 0.1 mg PO TID [facility] Last Admin: 06/04/16 17:22 Dose: 0.1 mg Duloxetine HCl (Cymbalta) 20 mg PO DAILY [facility] Last Admin: 06/04/16 10:14 Dose: 20 mg Hydralazine HCl (Apresoline) 10 mg IVP Q4H PRN PRN Reason: Systolic Blood Pressure Last Admin: 06/03/16 22:06 Dose: 10 mg Hydralazine HCl (Apresoline) 20 mg IVP Q4H PRN PRN Reason: Systolic Blood Pressure Vancomycin HCl (Vancomycin 1gm) 250 mls @ 167 mls/hr IVPB Q12H JONATHAN PRN Reason: Protocol Last Admin: 06/04/16 18:14 Dose: 167 mls/hr Piperacillin Sod/Tazobactam Sod (Zosyn 3.375 In Ns 100ml) 100 mls @ 200 mls/hr IVPB Q6 JONATHAN PRN Reason: Protocol Stop: 06/09/16 00:29 Last Admin: 06/04/16 17:22 Dose: 200 mls/hr Lisinopril (Zestril) 20 mg PO DAILY [facility] Last Admin: 06/04/16 10:14 Dose: 20 mg Ondansetron HCl (Zofran Odt) 8 mg PO Q8H PRN PRN Reason: Nausea/Vomiting Pantoprazole Sodium (Protonix Susp) 40 mg PO DAILY [facility] Last Admin: 06/04/16 10:15 Dose: 40 mg Verapamil HCl (Calan Sr Tab) 240 mg PO DAILY [facility] Last Admin: 06/04/16 14:05 Dose: 240 mg - Labs Labs: 06/04/16 06:45 06/04/16 06:45 PT 15.6 Seconds (9.9-11.8) H 06/02/16 06:15 INR 1.44 (0.93-1.08) H 06/02/16 06:15 APTT 33.8 Seconds (23.7-30.8) H 06/02/16 06:15 - Constitutional Appears: Non-toxic, No Acute Distress, Chronically Ill - Head Exam Head Exam: ATRAUMATIC, NORMOCEPHALIC - Eye Exam Eye Exam: EOMI, PERRL Pupil Exam: NORMAL ACCOMODATION, PERRL - ENT Exam ENT Exam: Mucous Membranes Moist, Normal External Ear Exam, TM's Normal Bilaterally - Neck Exam Neck Exam: Full ROM, Normal Inspection - Respiratory Exam Respiratory Exam: Clear to Ausculation Bilateral, NORMAL BREATHING PATTERN. absent: Rales, Rhonchi, Wheezes - Cardiovascular Exam Cardiovascular Exam: REGULAR RHYTHM, RRR, +S1, +S2 - GI/Abdominal Exam GI & Abdominal Exam: Soft, Normal Bowel Sounds. absent: Distended, Tenderness - Extremities Exam Extremities Exam: Joint Swelling, Pedal Edema Additional comments: right sided chronic weakness - Neurological Exam Neurological Exam: Alert, Awake, CN II-XII Intact Additional comments: AAO x 2 - 3 right sided weakness. - Psychiatric Exam Psychiatric exam: Normal Affect, Normal Mood - Skin Skin Exam: Intact, Normal Color Assessment and Plan - Assessment and Plan (Free Text) Assessment: 65 yo AA male returning for the third time for similar symptoms of AMS and left sided weakness that appears to have resolved by the time he arrived in the ER. EMS verified the AMS and left sided weakness in the field. Given this is the third episode, the patient overall judgement does appear impaired at this point. Supportive care. He has been started on Zosyn and Vancomycin empirically. Worsening LLL pneumonia? Most likely repeated and continuous Aspiration pneumonia episodes. Patient continues to deny any symptoms. On discharge can continue with Keflex and Flagyl. CT Head was performed and results noted. Thank you for allowing me to participate in the care of the patient, we will follow with you.
[2016-06-05] MEDS: Piperacillin/Tazobact 3.375 gm 100 ML IVPB SCH ×2 (05:45→11:00)
[2016-06-05 06:19] VITALS: O2SAT 95
[2016-06-05] MEDS: Vancomycin 1gm in NS 250ml 250 ML IVPB SCH (06:27)
[2016-06-05] MEDS: Pantoprazole 40 mg Susp UD PO SCH (10:51)
[2016-06-05] MEDS: Verapamil 240 mg ER Tab PO SCH (10:51)
--- NOTE | 2016-06-05 12:03 | CP.PCM.DIS ---
<Sarah Corley - Last Filed: 06/07/16 19:33> Provider - Provider Date of Admission: 06/01/16 17:14 Attending physician: Yeni Duran MD Primary care physician: Shawn Weaver MD Time Spent in preparation of Discharge (in minutes): 45 Diagnosis - Discharge Diagnosis (1) Pneumonia Status: c (2) Chest pain Status: c (3) Near syncope Status: c (4) Tachycardia Status: c (5) Weakness Status: c (6) Cerebral amyloid angiopathy Status: c (7) Hypertension Status: c Hospital Course - Lab Results Lab Results: Most Recent Lab Values WBC 10.1 10^3/ul (4.5-11.0) D 06/04/16 06:45 RBC 4.42 10^6/uL (3.5-6.1) 06/04/16 06:45 Hgb 11.3 gm/dL (14.0-18.0) L 06/04/16 06:45 Hct 33.5 % (42.0-52.0) L 06/04/16 06:45 MCV 75.8 fL (80.0-105.0) L 06/04/16 06:45 MCH 25.6 pg (25.0-35.0) 06/04/16 06:45 MCHC 33.7 g/dl (31.0-37.0) 06/04/16 06:45 RDW 14.7 % (11.5-14.5) H 06/04/16 06:45 Plt Count 429 10^3/uL (120.0-450.0) 06/04/16 06:45 MPV 10.5 fl (7.0-11.0) 06/04/16 06:45 Gran % 73.2 % (50.0-68.0) H 06/04/16 06:45 Lymph % (Auto) 13.2 % (22.0-35.0) L 06/04/16 06:45 Braxton % (Auto) 12.1 % (1.0-6.0) H 06/04/16 06:45 Eos % (Auto) 1.3 % (1.5-5.0) L 06/04/16 06:45 Baso % (Auto) 0.2 % (0.0-3.0) 06/04/16 06:45 Gran # 7.37 (1.4-6.5) H 06/04/16 06:45 Lymph # 1.3 (1.2-3.4) 06/04/16 06:45 Braxton # 1.2 (0.1-0.6) H 06/04/16 06:45 Eos # 0.1 (0.0-0.7) 06/04/16 06:45 Baso # 0.02 K/mm3 (0.0-2.0) 06/04/16 06:45 PT 15.6 Seconds (9.9-11.8) H 06/02/16 06:15 INR 1.44 (0.93-1.08) H 06/02/16 06:15 APTT 33.8 Seconds (23.7-30.8) H 06/02/16 06:15 pO2 37 mm/Hg (30-55) 06/01/16 16:25 VBG pH 7.38 (7.32-7.43) 06/01/16 16:25 VBG pCO2 40.0 (40-60) 06/01/16 16:25 VBG HCO3 23.7 mmol/l (21-28) 06/01/16 16:25 VBG Total CO2 24.9 mmol.L (22-28) 06/01/16 16:25 VBG O2 Sat (Calc) 66.8 % (40-65) H 06/01/16 16:25 VBG Base Excess -1.3 mmol/L (0.0-2.0) L 06/01/16 16:25 VBG Potassium 3.1 mmol/L (3.6-5.2) L 06/01/16 16:25 Sodium 141.0 mmol/L (132-148) 06/01/16 16:25 Chloride 109.0 mmol/L (98-107) H 06/01/16 16:25 Glucose 110 mg/dl (75-110) 06/01/16 16:25 Lactate 2.1 mmol/L (0.7-2.1) 06/01/16 16:25 FiO2 21.0 % 06/01/16 16:25 Sodium 143 mmol/L (132-148) 06/04/16 06:45 Potassium 3.3 mmol/L (3.6-5.0) L 06/04/16 06:45 Chloride 107 mmol/L (98-107) 06/04/16 06:45 Carbon Dioxide 25 mmol/L (21-33) 06/04/16 06:45 Anion Gap 14 (10-20) 06/04/16 06:45 BUN 7 mg/dL (7-21) 06/04/16 06:45 Creatinine 0.9 mg/dL (0.5-1.4) 06/04/16 06:45 Est GFR ( Amer) > 60 06/04/16 06:45 Est GFR (Non-Af Amer) > 60 06/04/16 06:45 POC Glucose (mg/dL) 88 mg/dL (65-110) 06/03/16 11:02 Random Glucose 80 mg/dL (70-110) 06/04/16 06:45 Hemoglobin A1c 6.0 % (4.2-6.5) 06/01/16 16:00 Calcium 9.0 mg/dL (8.4-10.5) 06/04/16 06:45 Total Bilirubin 1.1 mg/dL (0.2-1.3) 06/04/16 06:45 AST 40 U/L (15-59) 06/04/16 06:45 ALT 32 U/L (7-56) 06/04/16 06:45 Alkaline Phosphatase 75 U/L (38-133) 06/04/16 06:45 Lactate Dehydrogenase 499 U/L (333-699) 06/01/16 16:00 Total Creatine Kinase 45 U/L (35-230) 06/01/16 16:00 Troponin I 0.02 ng/mL D 06/01/16 16:00 NT-Pro-B Natriuret Pep 4280 pg/mL (0-450) H 06/01/16 16:00 Total Protein 7.1 g/dL (5.8-8.3) 06/04/16 06:45 Albumin 2.8 g/dL (3.0-4.8) L 06/04/16 06:45 Globulin 4.3 gm/dL 06/04/16 06:45 Albumin/Globulin Ratio 0.7 (1.1-1.8) L 06/04/16 06:45 Triglycerides 87 mg/dL (35-160) 06/01/16 16:00 Cholesterol 103 mg/dL (130-200) L 06/01/16 16:00 LDL Cholesterol Direct 36 mg/dL (0-129) 06/01/16 16:00 HDL Cholesterol 27 mg/dL (29-60) L 06/01/16 16:00 Procalcitonin 0.22 NG/ML (0.19-0.49) 06/01/16 16:00 Venous Blood Potassium 3.1 mmol/L (3.6-5.2) L 06/01/16 16:25 - Hospital Course Hospital Course: Patient is a 65 y/o AA M with PMHX of HTN, CVA with residual right sided hemiparesis, pneumonia, hep C, who was BIBA after his supervisor order takers called due to AMS and left sided weakness. Per EMS, the patient was found to have left sided weakness and hypotensive. At time of ER presentation, the left sided weakness had resolved; however, code stroke was called. Patient also complained of a cough productive of yellow sputum and vancomycin and zosyn were administered. Neurology was consulted. Pt found to have worsening L side pneumonia on CXR. CT of the head showed no acute finding. MRI showed extensive tiny foci of chronic intracranial hemorrhage and a large chronic hemorrhage in the Left basal ganglia. Per neurologist, the tiny foci of hemorrhage are likely a part of a chronic cerebral amyloid angiopathic process. BP was controlled. Over his hospital stay L side weakness resolved and pt passed swallow eval who recommended fine chopped diet with thin liquids. We recommended LTAC or NH. Pt refused and wants to go home with home care. Home care provider was called for instructions. Advance directive was taken care of. For full hospital course, please refer to chart Discharge Exam - Head Exam Head Exam: ATRAUMATIC, NORMOCEPHALIC - Eye Exam Eye Exam: Normal appearance. absent: Conjunctival injection, Scleral icterus - ENT Exam ENT Exam: Mucous Membranes Moist, Normal Oropharynx - Respiratory Exam Respiratory Exam: Clear to PA & Lateral, NORMAL BREATHING PATTERN. absent: Accessory Muscle Use, Respiratory Distress - Cardiovascular Exam Cardiovascular Exam: RRR, +S1, +S2 - GI/Abdominal Exam GI & Abdominal Exam: Soft. absent: Distended, Tenderness - Extremities Exam Extremities exam: pedal pulses present Additional comments: right lower extremity with 1+ pitting edema - Back Exam Back exam: absent: CVA tenderness (L), CVA tenderness (R) - Neurological Exam Neurological exam: Alert, Motor Sensory Deficit (motor 0/5 on the right upper and lower extremity), Oriented x3 - Psychiatric Exam Psychiatric exam: Normal Affect, Normal Mood - Skin Skin Exam: Dry, Intact, Normal Color, Warm Discharge Plan - Follow Up Plan Condition: FAIR Disposition: HOME/ ROUTINE Instructions: Viral Pneumonia (DC), Pleural Effusion (DC), Weakness (GEN), Hypertension (DC) Additional Instructions: -Take BP medications, check blood pressure regularly -Follow up with your primary medical doctor -eat finely chopped food and thick liquids to prevent choking on food -Return to the ED if you have return of symptoms or any concerning new symptoms Referrals: Shawn Weaver MD [Primary Care Provider] - Don Billingsley MD [Staff Provider] - <Yeni Duran - Last Filed: 06/14/16 11:13> Provider - Provider Date of Admission: 06/01/16 17:14 Attending physician: Yeni Duran MD Primary care physician: Shawn Weaver MD Hospital Course - Lab Results Lab Results: Micro Results 06/04/16 17:30 Nose MRSA Culture (Admit) - Final MRSA NOT DETECTED Most Recent Lab Values WBC 10.1 10^3/ul (4.5-11.0) D 06/04/16 06:45 RBC 4.42 10^6/uL (3.5-6.1) 06/04/16 06:45 Hgb 11.3 gm/dL (14.0-18.0) L 06/04/16 06:45 Hct 33.5 % (42.0-52.0) L 06/04/16 06:45 MCV 75.8 fL (80.0-105.0) L 06/04/16 06:45 MCH 25.6 pg (25.0-35.0) 06/04/16 06:45 MCHC 33.7 g/dl (31.0-37.0) 06/04/16 06:45 RDW 14.7 % (11.5-14.5) H 06/04/16 06:45 Plt Count 429 10^3/uL (120.0-450.0) 06/04/16 06:45 MPV 10.5 fl (7.0-11.0) 06/04/16 06:45 Gran % 73.2 % (50.0-68.0) H 06/04/16 06:45 Lymph % (Auto) 13.2 % (22.0-35.0) L 06/04/16 06:45 Braxton % (Auto) 12.1 % (1.0-6.0) H 06/04/16 06:45 Eos % (Auto) 1.3 % (1.5-5.0) L 06/04/16 06:45 Baso % (Auto) 0.2 % (0.0-3.0) 06/04/16 06:45 Gran # 7.37 (1.4-6.5) H 06/04/16 06:45 Lymph # 1.3 (1.2-3.4) 06/04/16 06:45 Braxton # 1.2 (0.1-0.6) H 06/04/16 06:45 Eos # 0.1 (0.0-0.7) 06/04/16 06:45 Baso # 0.02 K/mm3 (0.0-2.0) 06/04/16 06:45 PT 15.6 Seconds (9.9-11.8) H 06/02/16 06:15 INR 1.44 (0.93-1.08) H 06/02/16 06:15 APTT 33.8 Seconds (23.7-30.8) H 06/02/16 06:15 pO2 37 mm/Hg (30-55) 06/01/16 16:25 VBG pH 7.38 (7.32-7.43) 06/01/16 16:25 VBG pCO2 40.0 (40-60) 06/01/16 16:25 VBG HCO3 23.7 mmol/l (21-28) 06/01/16 16:25 VBG Total CO2 24.9 mmol.L (22-28) 06/01/16 16:25 VBG O2 Sat (Calc) 66.8 % (40-65) H 06/01/16 16:25 VBG Base Excess -1.3 mmol/L (0.0-2.0) L 06/01/16 16:25 VBG Potassium 3.1 mmol/L (3.6-5.2) L 06/01/16 16:25 Sodium 141.0 mmol/L (132-148) 06/01/16 16:25 Chloride 109.0 mmol/L (98-107) H 06/01/16 16:25 Glucose 110 mg/dl (75-110) 06/01/16 16:25 Lactate 2.1 mmol/L (0.7-2.1) 06/01/16 16:25 FiO2 21.0 % 06/01/16 16:25 Sodium 143 mmol/L (132-148) 06/04/16 06:45 Potassium 3.3 mmol/L (3.6-5.0) L 06/04/16 06:45 Chloride 107 mmol/L (98-107) 06/04/16 06:45 Carbon Dioxide 25 mmol/L (21-33) 06/04/16 06:45 Anion Gap 14 (10-20) 06/04/16 06:45 BUN 7 mg/dL (7-21) 06/04/16 06:45 Creatinine 0.9 mg/dL (0.5-1.4) 06/04/16 06:45 Est GFR ( Amer) > 60 06/04/16 06:45 Est GFR (Non-Af Amer) > 60 06/04/16 06:45 POC Glucose (mg/dL) 67 mg/dL (65-110) 06/05/16 11:19 Random Glucose 80 mg/dL (70-110) 06/04/16 06:45 Hemoglobin A1c 6.0 % (4.2-6.5) 06/01/16 16:00 Calcium 9.0 mg/dL (8.4-10.5) 06/04/16 06:45 Total Bilirubin 1.1 mg/dL (0.2-1.3) 06/04/16 06:45 AST 40 U/L (15-59) 06/04/16 06:45 ALT 32 U/L (7-56) 06/04/16 06:45 Alkaline Phosphatase 75 U/L (38-133) 06/04/16 06:45 Lactate Dehydrogenase 499 U/L (333-699) 06/01/16 16:00 Total Creatine Kinase 45 U/L (35-230) 06/01/16 16:00 Troponin I 0.02 ng/mL D 06/01/16 16:00 NT-Pro-B Natriuret Pep 4280 pg/mL (0-450) H 06/01/16 16:00 Total Protein 7.1 g/dL (5.8-8.3) 06/04/16 06:45 Albumin 2.8 g/dL (3.0-4.8) L 06/04/16 06:45 Globulin 4.3 gm/dL 06/04/16 06:45 Albumin/Globulin Ratio 0.7 (1.1-1.8) L 06/04/16 06:45 Triglycerides 87 mg/dL (35-160) 06/01/16 16:00 Cholesterol 103 mg/dL (130-200) L 06/01/16 16:00 LDL Cholesterol Direct 36 mg/dL (0-129) 06/01/16 16:00 HDL Cholesterol 27 mg/dL (29-60) L 06/01/16 16:00 Procalcitonin 0.22 NG/ML (0.19-0.49) 06/01/16 16:00 Venous Blood Potassium 3.1 mmol/L (3.6-5.2) L 06/01/16 16:25 Attending/Attestation - Attestation I have personally seen and examined this patient.: Yes I have fully participated in the care of the patient.: Yes I have reviewed all pertinent clinical information, including history, physical exam and plan: Yes Notes (Text): 06/14/16 11:12 attending note; I have seen and examined patient at bedside with resident. This is a 65 year old male with history of hypertension, CVA, pneumonia, hep c , and depression who was brought in by health aid for evaluation of new Left sided weakness which was resolved upon admission. Patient was admitted to rule out TIA. CT scan did not show any acute changes. MRI showed possible acute 4 mm hemorrhage versus chronic myeloid angiopathy. MRI reviewed by neurologist. MRI findings suggestive of hypertensive encephalopathy chronic. Continued aspirin and antihypertensives medication. Patient has chronic expressive aphasia. Patient has complete right Hemiplegia. currently with no Left sided weakness. physical therapy evaluation appreciated. Patient with baseline status. patient is tolerating diet well. Aspiration/fall precautions explained. Hypertension; medication adjusted. Prescription called in to [facility] pharmacy. Pneumonia; treated with IV vanco and zosyn. Cultures negative. advised by telehealth case manager and social welfare research worker for long-term placement. Patient refused LTAC or residential. Patient will be going home. advised to follow-up with PMD. Advised to Follow-up blood pressure closely to avoid recurrent strokes. fall/aspiration precautions explained in detail. Diagnosis; uncontrolled hypertension CVA Noncompliance with follow-up Pneumonia Right hemiplegia Expressive aphasia
[2016-06-05 12:38] VITALS: RESP 20; TEMP 98.4
[2016-06-05 13:21] VITALS: BP 125/74
--- NOTE | 2016-06-05 13:22 | CP.PCM.PN ---
Subjective - Date & Time of Evaluation Date of Evaluation: 06/05/16 Time of Evaluation: 11:45 - Subjective Subjective: Infectious Disease Follow Up: June 05, 2016 65 yo male with presentation to the hospital after being found on the floor by his caregiver. The patient had been found by his director radio again on the floor with left sided weakness. EMS also reported left sided weakness. In ER the weakness resolved. This is the third episode within the past 30 days now. Patient is still denying symptoms. Patient had swallowing test done and failed it. He appears at his baseline today for the most part but speech is frequently and mostly garbled... more so than previous admissions. Objective - Vital Signs/Intake and Output Vital Signs (last 24 hours): Temp Pulse Resp BP Pulse Ox 98.4 F 80 20 160/94 H 95 06/05/16 12:00 06/05/16 12:00 06/05/16 12:00 06/05/16 12:00 06/05/16 06:00 Intake and Output: 06/05/16 06/05/16 06:59 18:59 Intake Total 450 Output Total 600 Balance -150 - Medications Medications: Current Medications Acetaminophen (Tylenol 325mg Tab) 650 mg PO Q6H PRN PRN Reason: Fever >100.4 F Aspirin (Aspirin) 325 mg PO DAILY [facility] Last Admin: 06/05/16 10:50 Dose: 325 mg Atenolol (Tenormin) 25 mg PO BID [facility] Last Admin: 06/05/16 10:52 Dose: 25 mg Clonidine HCl (Catapres) 0.1 mg PO TID [facility] Last Admin: 06/05/16 10:51 Dose: 0.1 mg Duloxetine HCl (Cymbalta) 20 mg PO DAILY [facility] Last Admin: 06/05/16 10:51 Dose: 20 mg Hydralazine HCl (Apresoline) 10 mg IVP Q4H PRN PRN Reason: Systolic Blood Pressure Last Admin: 06/03/16 22:06 Dose: 10 mg Hydralazine HCl (Apresoline) 20 mg IVP Q4H PRN PRN Reason: Systolic Blood Pressure Vancomycin HCl (Vancomycin 1gm) 250 mls @ 167 mls/hr IVPB Q12H JONATHAN PRN Reason: Protocol Last Admin: 06/05/16 06:27 Dose: 167 mls/hr Piperacillin Sod/Tazobactam Sod (Zosyn 3.375 In Ns 100ml) 100 mls @ 200 mls/hr IVPB Q6 JONATHAN PRN Reason: Protocol Stop: 06/09/16 00:29 Last Admin: 06/05/16 11:00 Dose: 200 mls/hr Lisinopril (Zestril) 20 mg PO DAILY [facility] Last Admin: 06/05/16 10:51 Dose: 20 mg Ondansetron HCl (Zofran Odt) 8 mg PO Q8H PRN PRN Reason: Nausea/Vomiting Pantoprazole Sodium (Protonix Susp) 40 mg PO DAILY [facility] Last Admin: 06/05/16 10:51 Dose: 40 mg Verapamil HCl (Calan Sr Tab) 240 mg PO DAILY [facility] Last Admin: 06/05/16 10:51 Dose: 240 mg - Labs Labs: 06/04/16 06:45 06/04/16 06:45 PT 15.6 Seconds (9.9-11.8) H 06/02/16 06:15 INR 1.44 (0.93-1.08) H 06/02/16 06:15 APTT 33.8 Seconds (23.7-30.8) H 06/02/16 06:15 - Constitutional Appears: Non-toxic, No Acute Distress, Chronically Ill - Head Exam Head Exam: ATRAUMATIC, NORMOCEPHALIC - Eye Exam Eye Exam: EOMI, PERRL Pupil Exam: NORMAL ACCOMODATION, PERRL - ENT Exam ENT Exam: Mucous Membranes Moist, Normal External Ear Exam, TM's Normal Bilaterally - Neck Exam Neck Exam: Full ROM, Normal Inspection - Respiratory Exam Respiratory Exam: Clear to Ausculation Bilateral, NORMAL BREATHING PATTERN. absent: Rales, Rhonchi, Wheezes - Cardiovascular Exam Cardiovascular Exam: REGULAR RHYTHM, RRR, +S1, +S2 - GI/Abdominal Exam GI & Abdominal Exam: Soft, Normal Bowel Sounds. absent: Distended, Tenderness - Extremities Exam Extremities Exam: Full ROM, Normal Inspection Additional comments: right sided chronic weakness - Neurological Exam Neurological Exam: Alert, Awake, CN II-XII Intact Additional comments: AAO x 2 - 3 right sided weakness. - Psychiatric Exam Psychiatric exam: Normal Affect, Normal Mood - Skin Skin Exam: Intact, Normal Color Assessment and Plan - Assessment and Plan (Free Text) Assessment: 65 yo AA male returning for the third time for similar symptoms of AMS and left sided weakness that appears to have resolved by the time he arrived in the ER. EMS verified the AMS and left sided weakness in the field. Given this is the third episode, the patient overall judgement does appear impaired at this point. Supportive care. He has been started on Zosyn and Vancomycin empirically. Worsening LLL pneumonia? Most likely repeated and continuous Aspiration pneumonia episodes. Patient continues to deny any symptoms. On discharge can continue with Keflex and Flagyl. CT Head was performed and results noted. Thank you for allowing me to participate in the care of the patient, we will follow with you.
[2016-06-05 16:19] VITALS: PULSE 76
== END 2016-06-05 17:15 | disposition home or self-care (01) | DRG 79 ==
LOC: ED 15:45 → ERH 17:14 → 2RNO 20:09
PROVIDERS: ADMIT Internal Medicine; ATTEND Internal Medicine
DX: J69.0 Pneumonitis due to inhalation of food and vomit (principal); B19.20 Unspecified viral hepatitis C without hepatic coma; E87.6 Hypokalemia; E87.8 Other disorders of electrolyte and fluid balance, not elsewhere classified; I95.9 Hypotension, unspecified; I68.0 Cerebral amyloid angiopathy; I10 Essential (primary) hypertension; Z66 Do not resuscitate; F32.9 Major depressive disorder, single episode, unspecified; I69.351 Hemiplegia and hemiparesis following cerebral infarction affecting right dominant side; I69.322 Dysarthria following cerebral infarction; Z79.82 Long term (current) use of aspirin

== ENCOUNTER 2016-07-06 15:14 | Emergency (ER) | payer OTHER ==
[2016-07-06 15:15] VITALS: PULSE 104
[2016-07-06 15:31] VITALS: BP 112/72; PULSE 84; RESP 24; TEMP 98.9; O2SAT 98; BMI 20.9
--- NOTE | 2016-07-06 15:58 | ED PDOC ---
Arrival/HPI - General Chief Complaint: Syncope Time Seen by Provider: 07/06/16 15:35 - History of Present Illness Narrative History of Present Illness (Text): 07/06/16 15:51 Patient is a 66 y/o M with hx of HTN, CVA with residual R sided weakness, presenting after syncope vs seizure Patient presented with home health aide Dr. Jennifer Segundo. She reports that patient has in his usual state of health this morning when she got to his home. She reports that at 230 she went to get patient medication and then he began to have stiffness of L arm and "foaming at mouth." He regained consciousness in the ambulance. dental aide reports that patient is now at baseline. Patient reports that he feels fine and reports that he "woke up" in the ambulance. He is AAOx3 and refusing treatment. 07/06/16 16:41 Past Medical History - Infectious Disease Hx of Infectious Diseases: None - Tetanus Immunization Tetanus Immunization: Unknown - Cardiac Hx Cardiac Disorders: Yes Hx Hypertension: Yes - Pulmonary Hx Respiratory Disorders: No - Neurological Hx Neurological Disorder: Yes HX Cerebrovascular Accident: Yes - HEENT Hx HEENT Disorder: No - Renal Hx Renal Disorder: No - Endocrine/Metabolic Hx Endocrine Disorders: No - Hematological/Oncological Hx Blood Disorders: No - Integumentary Hx Dermatological Disorder: No - Musculoskeletal/Rheumatological Hx Musculoskeletal Disorders: Yes Hx Falls: Yes - Gastrointestinal Hx Gastrointestinal Disorders: No - Genitourinary/Gynecological Hx Genitourinary Disorders: No - Psychiatric Hx Psychophysiologic Disorder: Yes Hx Depression: Yes Hx Substance Use: No - Surgical History Hx Abdominal Aortic Aneurysm Repair: No Family/Social History Family/Social History: No Known Family HX Smoking Status: Former Smoker Hx Alcohol Use: No Hx Substance Use: No Allergies/Home Meds Allergies/Adverse Reactions: Allergies No Known Allergies Allergy (Verified 07/06/16 15:19) Home Medications: Home Meds Medication Instructions Recorded Confirmed Aspirin [Ecotrin] 325 mg PO DAILY 05/13/16 06/01/16 DULoxetine [Cymbalta] 30 mg PO DAILY 05/13/16 07/06/16 Gabapentin [Neurontin] 800 mg PO TID 05/13/16 07/06/16 Simvastatin [Zocor] 40 mg PO HS 05/13/16 06/01/16 Cilostazol [Pletal] 100 mg PO BID 05/24/16 07/06/16 Multivitamin/Iron/Folic Acid 1 tab PO DAILY 05/24/16 07/06/16 [Certavite-Antioxidant Tablet] cloNIDine [Catapres] 0.1 mg PO TID 05/24/16 06/01/16 Verapamil HCl [Verapamil ER] 120 tab PO DAILY 06/01/16 07/06/16 Atenolol [Tenormin] 50 mg PO DAILY 07/06/16 07/06/16 Cyproheptadine [Periactin] 4 mg PO HS 07/06/16 07/06/16 Lisinopril [Zestril] 10 mg PO DAILY 07/06/16 07/06/16 Review of Systems - Review of Systems Systems not reviewed;Unavailable: Uncooperative Constitutional: absent: Fevers Respiratory: absent: Cough Gastrointestinal: absent: Abdominal Pain, Constipation, Diarrhea, Vomiting Neurological: Other (stiffening episode) Physical Exam Vital Signs Temp Pulse Resp BP Pulse Ox 07/06/16 15:22 98.9 F 84 24 112/72 98 Temperature: Afebrile Blood Pressure: Normal Pulse: Regular Respiratory Rate: Normal Appearance: Positive for: Well-Appearing, Non-Toxic, Comfortable Pain Distress: None Mental Status: Positive for: Alert and Oriented X 3 Medical Decision Making ED Course and Treatment: Patient is AAOx3. He has slurred speech and R sided weakness that home health aide reports is baseline. Patient is able to tell me "No" and "I want to go home." He continues to yell "home now" when I suggest further tests. I explained to the patient that I could not force testing but that he had an episode that was concerning for seizure vs syncope and patient needed testing and likely admission for further evaluation of cardiac or neurologic cause. He reports that he understands (by verbal and non verbal shaking head, yes/no) and he is refusing treatment and again states he wants to go home. The patient is choosing to leave against medical advice. I have personally explained to the patient that choosing to do so may result in permanent bodily harm or . I have discussed at great length that without further evaluation and monitoring there may be unforeseen circumstances and/or deterioration causing permanent bodily harm or as a result of their choice. The patient is alert, oriented, and shows the mental capacity to make clear decisions regarding the patients health care at this time. The patient continues to wish to leave against medical advice. I again spoke to health aide and she confirms that patient makes decisions for himself and has no POA. In light of the patients decision to leave against medical advice, I arranged transport for patient back home due to his R sided weakness. I instructed the patient that he could return at any time if he changed his mind. His home health aide will be at home when he returns. I again returned to attempt fingerstick and again patient refused any tests or treatmnet. Disposition/Present on Arrival - Present on Arrival Any Indicators Present on Arrival: No History of DVT/PE: No History of Uncontrolled Diabetes: No Urinary Catheter: No History of Decub. Ulcer: No History Surgical Site Infection Following: None - Disposition Have Diagnosis and Disposition been Completed?: Yes Diagnosis: Syncope and collapse, Seizure Disposition: AGAINST MEDICAL ADVICE Disposition Time: 15:58 Condition: FAIR Discharge Instructions (ExitCare): Syncope (ED) Additional Instructions: IF YOU WANT FURTHER EVALUATION OF YOUR CAUSE OF COLLAPSE RETURN TO ED IMMEDIATELY. YOU ARE SIGNING OUT AGAINST MEDICAL ADVICE.
--- NOTE | 2016-07-06 20:16 | CARD ---
APPROVED REPORT EKG Measurement Heart [id number] IA 162P [id number] <Conclusion> Normal sinus rhythm Left anterior fascicular block Cannot rule out Inferior infarct, age undetermined T wave abnormality, consider lateral ischemia Abnormal ECG
== END 2016-07-06 16:28 | disposition left against medical advice (07) ==
LOC: ED 15:14
DX: R55 Syncope and collapse (principal); R56.9 Unspecified convulsions; I10 Essential (primary) hypertension; I69.351 Hemiplegia and hemiparesis following cerebral infarction affecting right dominant side; Z87.891 Personal history of nicotine dependence

== ENCOUNTER 2016-07-08 10:32 | Observation (INO) | payer OTHER ==
[2016-07-08 10:33] VITALS: PULSE 104
[2016-07-08 11:09] VITALS: BMI 16.7
[2016-07-08] MEDS ORDERED: Sodium Chloride 0.9% 1,000 ML IV STA (11:51)
--- NOTE | 2016-07-08 12:07 | ED PDOC ---
Arrival/HPI - General Chief Complaint: Medical Clearance Time Seen by Provider: 07/08/16 11:16 Historian: EMS EM Caveat: Acuity of Condition - History of Present Illness Narrative History of Present Illness (Text): 07/08/16 11:38 A 66 year old male, whose past medical history includes hypertension and CVA with residual right sided weakness, is brought into the emergency department via EMS for evaluation. EMS states they were called my the patient healthcare consulting manager, stating the patient is "sick". Mica Patcher said that he has had a decreased appetite x 2 weeks and had generalized weakness the past two days with possible fever. HPI and ROS limited due to acuity of condition. PMD: Dr. Weaver Past Medical History - Provider Review Nursing Documentation Reviewed: Yes - Infectious Disease Hx of Infectious Diseases: None - Tetanus Immunization Tetanus Immunization: Unknown - Cardiac Hx Cardiac Disorders: Yes Hx Hypertension: Yes - Pulmonary Hx Respiratory Disorders: No - Neurological Hx Neurological Disorder: Yes HX Cerebrovascular Accident: Yes (R sided paralysis) - HEENT Hx HEENT Disorder: No - Renal Hx Renal Disorder: No - Endocrine/Metabolic Hx Endocrine Disorders: No - Hematological/Oncological Hx Blood Disorders: No - Integumentary Hx Dermatological Disorder: No - Musculoskeletal/Rheumatological Hx Musculoskeletal Disorders: Yes Hx Falls: Yes - Gastrointestinal Hx Gastrointestinal Disorders: No - Genitourinary/Gynecological Hx Genitourinary Disorders: No - Psychiatric Hx Psychophysiologic Disorder: Yes Hx Depression: Yes Hx Substance Use: No - Surgical History Hx Abdominal Aortic Aneurysm Repair: No - Anesthesia Hx Anesthesia Reactions: No Hx Malignant Hyperthermia: No Family/Social History - Physician Review Nursing Documentation Reviewed: Yes Family/Social History: Unknown Family HX Smoking Status: Former Smoker Hx Alcohol Use: No Hx Substance Use: No Allergies/Home Meds Allergies/Adverse Reactions: Allergies No Known Allergies Allergy (Verified 07/06/16 15:19) Home Medications: Home Meds Medication Instructions Recorded Confirmed Aspirin [Ecotrin] 325 mg PO DAILY 05/13/16 07/08/16 DULoxetine [Cymbalta] 30 mg PO DAILY 05/13/16 07/08/16 Gabapentin [Neurontin] 800 mg PO TID 05/13/16 07/08/16 Cilostazol [Pletal] 100 mg PO BID 05/24/16 07/08/16 Multivitamin/Iron/Folic Acid 1 tab PO DAILY 05/24/16 07/08/16 [Certavite-Antioxidant Tablet] Verapamil HCl [Verapamil ER] 120 tab PO DAILY 06/01/16 07/08/16 Atenolol [Tenormin] 50 mg PO DAILY 07/06/16 07/08/16 Cyproheptadine [Periactin] 4 mg PO HS 07/06/16 07/08/16 Lisinopril [Zestril] 10 mg PO DAILY 07/06/16 07/08/16 Review of Systems - Review of Systems Systems not reviewed;Unavailable: Acuity of Condition Physical Exam Vital Signs Reviewed: Yes Vital Signs Temp Pulse Resp BP Pulse Ox 07/08/16 13:25 124 H 18 153/100 H 100 07/08/16 12:10 144 H 16 143/73 98 07/08/16 12:08 144 H 143/73 07/08/16 11:04 99.1 F 101 H 18 135/92 H 96 Temperature: Afebrile Blood Pressure: Hypertensive Pulse: Tachycardic Respiratory Rate: Normal Appearance: Positive for: Non-Toxic Pain Distress: None Mental Status: Positive for: other (actively seizing with ton of clonic movement on the left side) - Systems Exam Head: Present: Atraumatic, Normocephalic Pupils: Present: PERRL Conjunctiva: Present: Normal Mouth: Present: Moist Mucous Membranes Pharnyx: Present: Normal. No: ERYTHEMA, EXUDATE Neck: Present: Normal Range of Motion Respiratory/Chest: Present: Clear to Auscultation, Good Air Exchange. No: Respiratory Distress, Accessory Muscle Use Cardiovascular: Present: Normal S1, S2, Tachycardic. No: Murmurs Abdomen: Present: Normal Bowel Sounds. No: Tenderness, Distention, Peritoneal Signs Upper Extremity: Present: Normal Inspection. No: Cyanosis, Edema Lower Extremity: Present: Other (mild atrophy ). No: Edema Neurological: Present: CN II-XII Intact (patient non verbal at this time). No: Speech Normal Skin: Present: Warm, Dry, Normal Color. No: Rashes Psychiatric: Present: Alert. No: Oriented x 3 Medical Decision Making ED Course and Treatment: 07/08/16 11:38 Impression: A 66 year old male with a possible fever. Patient having an active seizure in the emergency department upon my evaluation. Ativan was given with resolution of seizure Differential Diagnosis included but are not limited to: seizure vs. sepsis Plan: -- EKG -- Head CT -- Chest X-ray -- Labs -- Urinalysis -- Cardizem and IV Fluids -- Reassess and disposition Prior Visits: Notes and results from previous visits were reviewed. The patient last presented to the emergency department o n007/06/16 for evaluation after a syncopal episode. Progress Notes: 07/08/16 12:30 Chest X-ray: Creator : Tamir Yeager MD COMPARISON:06/01/2016 FINDINGS: LUNGS:No active pulmonary disease. PLEURA:No significant pleural effusion identified, no pneumothorax apparent. CARDIOVASCULAR:Normal. OSSEOUS STRUCTURES:No significant abnormalities. VISUALIZED UPPER ABDOMEN:Normal. OTHER FINDINGS:None. IMPRESSION: No active disease. 07/08/16 13:[address]: Creator : Ladonna Matthews MD COMPARISON:Noncontrast head CT performed 06/01/16, MRI brain performed 06/02/16 FINDINGS: HEMORRHAGE:No intracranial hemorrhage. BRAIN:Diffuse atrophy with prominence of the ventricles and sulci noted. No mass effect or edema. Left thalamus and the left basal ganglia encephalomalacia. Moderate scattered periventricular and subcortical white matter hypodensities, which are nonspecific, but often seen with chronic microvascular ischemic disease. Please note that MRI with diffusion imaging is more sensitive in the detection of acute ischemic event. VENTRICLES:No hydrocephalus. CALVARIUM:Unremarkable. PARANASAL SINUSES:Unremarkable as visualized. No significant inflammatory changes. MASTOID AIR CELLS:Unremarkable as visualized. No inflammatory changes. OTHER FINDINGS:None. IMPRESSION: Left thalamus and left basal ganglia encephalomalacia. Moderate nonspecific white matter changes as above. Please note that MRI with diffusion imaging is more sensitive in the detection of acute ischemic event. 07/08/16 15:19 Patient with noted history. Seen while seizing originally which resolved with ativan. Pt then went into afib with RVR. Seizure appears to be new as was the afib. Patient was given cardizem for the afib and heart rate went down to about 100 bpm and converted to sinus. Lactic acid came back at 4.8 but was drawn after seizure so may be related to it. Code sepsis called; given broad spectrum coverage for abx. He was also started on IVF, per sepsis protocol; he finished approx 1100 cc and began to develop shortness of breath; given elevated BNP, concern for possible CHF developing; IVF stopped. 07/08/16 15:39 Case was discussed with Dr. Whitman, who said to admit to the hospitalist. - Lab Interpretations Lab Results: 07/08/16 11:40 07/08/16 11:40 Lab Results 07/08/16 12:38: pO2 146 H, VBG pH 7.38, VBG pCO2 46.0, VBG HCO3 27.2, VBG Total CO2 28.6 H, VBG O2 Sat (Calc) 99.9 H, VBG Base Excess 1.6, Glucose 123 H, Lactate 4.8 H*, FiO2 21, Chloride 105.0 07/08/16 11:40: Sodium 138, Potassium 4.0, Chloride 97 L, Carbon Dioxide 33, Anion Gap 12, BUN 15, Creatinine 1.1, Est GFR ( Amer) > 60, Est GFR (Non- Af Amer) > 60, Random Glucose 122 H, Calcium 10.1, Phosphorus 3.7, Magnesium 1.9 , Total Bilirubin 1.2, AST 67 H, ALT 57 H, Alkaline Phosphatase 120, Lactate Dehydrogenase 339, Total Creatine Kinase 41, Troponin I < 0.01 D, NT-Pro-B Natriuret Pep 2330 H, Total Protein 8.4 H, Albumin 3.6, Globulin 4.8, Albumin/ Globulin Ratio 0.8 L, Lipase 65 07/08/16 11:40: PT 12.1 H, INR 1.12 H, APTT 29.9 07/08/16 11:40: WBC 8.4, RBC 4.52, Hgb 11.8 L, Hct 34.8 L, MCV 77.0 L, MCH 26.1 , MCHC 33.9, RDW 18.1 H, Plt Count 306, MPV 11.2 H, Gran % 79.7 H, Lymph % (Auto ) 11.0 L, [place] % (Auto) 9.1 H, Eos % (Auto) 0.0 L, Baso % (Auto) 0.2, Gran # 6.67 H, Lymph # 0.9 L, [place] # 0.8 H, Eos # 0.0, Baso # 0.02, ESR 51 H 07/08/16 07:00: Urine Color Yellow, Urine Appearance Clear, Urine pH 6.0, Ur Specific [place] 1.025, Urine Protein 30 H, Urine Glucose (UA) Negative, Urine Ketones Negative, Urine Blood Negative, Urine Nitrate Negative, Urine Bilirubin Negative, Urine Urobilinogen 0.2, Ur Leukocyte Esterase Negative, Urine RBC Negative, Urine WBC 0 - 2, Urine Bacteria Small I have reviewed the lab results: Yes - RAD Interpretation Radiology Orders: 07/08/16 11:50 CHEST PORTABLE [RAD] Stat 07/08/16 11:55 Brain [HEAD W/O CONTRAST] [CT] Stat - EKG Interpretation EKG Interpretation (Text): 07/08/16 15:36 EKG #1: afib/flutter @ 168 with left axis deviation; nonspecific ST/T changes. QTc is 511 EKG#2: sinus tachy @ 107 with PACs; LAD; no ST/T changes; QTc is 512 Interpreted by ED Physician: Yes Type: 12 lead EKG - Medication Orders Current Medication Orders: Discontinued Medications Diltiazem HCl (Cardizem) 10 mg IVP STAT STA Stop: 07/08/16 12:00 Last Admin: 07/08/16 12:08 Dose: 10 mg Sodium Chloride (Sodium Chloride 0.9%) 1,000 mls @ 999 mls/hr IV .Q1H1M STA Stop: 07/08/16 12:51 Last Admin: 07/08/16 12:09 Dose: 999 mls/hr Piperacillin Sod/Tazobactam Sod (Zosyn 3.375 In Ns 100ml) 100 mls @ 200 mls/hr IVPB STAT STA PRN Reason: Protocol Stop: 07/08/16 13:37 Last Admin: 07/08/16 13:21 Dose: 200 mls/hr Sodium Chloride (Sodium Chloride 0.9%) 632 mls @ 632 mls/hr IV .Q1H STA Stop: 07/08/16 14:14 Last Admin: 07/08/16 13:22 Dose: 632 mls/hr Lorazepam (Ativan) Confirm Administered Dose 2 mg .ROUTE .STK-MED ONE Stop: 07/08/16 11:40 Last Admin: 07/08/16 11:45 Dose: 2 mg - Scribe Statement The provider has reviewed the documentation as recorded by the Joshua Mahmood Provider Scribe Attestation: All medical record entries made by the Scribe were at my direction and personally dictated by me. I have reviewed the chart and agree that the record accurately reflects my personal performance of the history, physical exam, medical decision making, and the department course for this patient. I have also personally directed, reviewed, and agree with the discharge instructions and disposition. Disposition/Present on Arrival - Present on Arrival Any Indicators Present on Arrival: No History of DVT/PE: No History of Uncontrolled Diabetes: No Urinary Catheter: No History of Decub. Ulcer: No History Surgical Site Infection Following: None - Disposition Have Diagnosis and Disposition been Completed?: Yes Diagnosis: New onset seizure, New onset atrial flutter Disposition: HOSPITALIZED Disposition Time: 13:10 Patient Plan: Admission, Telemetry Condition: SERIOUS
[2016-07-08 12:12] LABS: ADD MANUAL DIFF? NO
[2016-07-08 12:25] LABS: INR 1.12 (0.93-1.08); PARTIAL THROMBOPLASTIN TIME 29.9 Seconds (23.7-30.8)
--- NOTE | 2016-07-08 12:30 | RAD ---
HISTORY: Sepsis Patient COMPARISON: 06/01/2016 FINDINGS: LUNGS: No active pulmonary disease. PLEURA: No significant pleural effusion identified, no pneumothorax apparent. CARDIOVASCULAR: Normal. OSSEOUS STRUCTURES: No significant abnormalities. VISUALIZED UPPER ABDOMEN: Normal. OTHER FINDINGS: None. IMPRESSION: No active disease.
[2016-07-08 12:37] LABS: ALB/GLOB RATIO 0.8 (1.1-1.8); ALKALINE PHOSPHATASE 120 U/L (38-133); ALT/SGPT 57 U/L (7-56); AST/SGOT 67 U/L (15-59); BILIRUBIN,TOTAL 1.2 mg/dL (0.2-1.3); BLOOD UREA NITROGEN 15 mg/dL (7-21); CALCIUM 10.1 mg/dL (8.4-10.5); CARBON DIOXIDE 33 mmol/L (21-33); CHLORIDE 97 mmol/L (98-107); GFR AFRICAN-AMERICAN > 60; GLUCOSE,RANDOM 122 mg/dL (70-110); LIPASE 65 U/L (23-300); MAGNESIUM 1.9 mg/dL (1.7-2.2); PHOSPHOROUS 3.7 mg/dL (2.5-4.5); SODIUM 138 mmol/L (132-148); TOTAL PROTEIN 8.4 g/dL (5.8-8.3)
[2016-07-08 12:44] LABS: BASO # 0.02 K/mm3 (0.0-2.0); BASO % 0.2 % (0.0-3.0); GRAN # 6.67 (1.4-6.5); GRAN % 79.7 % (50.0-68.0); HEMATOCRIT 34.8 % (42.0-52.0); LYMPH # 0.9 (1.2-3.4); MEAN CORPUSCULAR HEMOGLOBIN 26.1 pg (25.0-35.0); MEAN CORPUSCULAR HGB CONC 33.9 g/dl (31.0-37.0); MEAN PLATELET VOLUME 11.2 fl (7.0-11.0); MONO # 0.8 (0.1-0.6); MONO % 9.1 % (1.0-6.0); PLATELET COUNT 306 10^3/uL (120.0-450.0); RED CELL DISTRIBUTION WIDTH 18.1 % (11.5-14.5); WHITE BLOOD COUNT 8.4 10^3/ul (4.5-11.0)
[2016-07-08 12:46] LABS: TROPONIN I < 0.01 ng/mL
[2016-07-08 12:49] LABS: VENOUS BLOOD PH 7.38 (7.32-7.43)
[2016-07-08 12:50] LABS: VENOUS BLOOD GAS BASE EXCESS 1.6 mmol/L (0.0-2.0)
[2016-07-08] MEDS ORDERED: Piperacillin/Tazobact 3.375 gm 100 ML IVPB STA (13:08)
--- NOTE | 2016-07-08 13:23 | CT ---
PROCEDURE: CT HEAD WITHOUT CONTRAST. HISTORY: h/o cva; new onset seizure COMPARISON: Noncontrast head CT performed 06/01/16, MRI brain performed 06/02/16 TECHNIQUE: Axial computed tomography images were obtained through the head/brain without intravenous contrast. Radiation dose: Total exam DLP = 768.25 mGy-cm. This CT exam was performed using one or more of the following dose reduction techniques: Automated exposure control, adjustment of the mA and/or kV according to patient size, and/or use of iterative reconstruction technique. FINDINGS: HEMORRHAGE: No intracranial hemorrhage. BRAIN: Diffuse atrophy with prominence of the ventricles and sulci noted. No mass effect or edema. Left thalamus and the left basal ganglia encephalomalacia. Moderate scattered periventricular and subcortical white matter hypodensities, which are nonspecific, but often seen with chronic microvascular ischemic disease. Please note that MRI with diffusion imaging is more sensitive in the detection of acute ischemic event. VENTRICLES: No hydrocephalus. CALVARIUM: Unremarkable. PARANASAL SINUSES: Unremarkable as visualized. No significant inflammatory changes. MASTOID AIR CELLS: Unremarkable as visualized. No inflammatory changes. OTHER FINDINGS: None. IMPRESSION: Left thalamus and left basal ganglia encephalomalacia. Moderate nonspecific white matter changes as above. Please note that MRI with diffusion imaging is more sensitive in the detection of acute ischemic event.
[2016-07-08 13:32] LABS: ERYTHROCYTE SEDIMENTATION RATE 51 mm/hr (0.00-15.0)
[2016-07-08 13:50] LABS: URINE BILIRUBIN NEGATIVE (NEGATIVE); URINE BLOOD NEGATIVE (NEGATIVE); URINE GLUCOSE (UA) NEGATIVE (NEGATIVE); URINE KETONE NEGATIVE (NEGATIVE); URINE LEUKOCYTE ESTERASE NEGATIVE Leu/uL (NEGATIVE); URINE PROTEIN 30 mg/dL (<30 mg/dL); URINE UROBILINOGEN 0.2 E.U./dL (<1 E.U./dL)
[2016-07-08 13:51] LABS: URINE APPEARANCE CLEAR (CLEAR); URINE COLOR YELLOW (YELLOW)
[2016-07-08 13:58] LABS: URINE BACTERIA SMALL (NEG); URINE RBC NEGATIVE /hpf (0-2); URINE WBC 0 - 2 /hpf (0-6)
[2016-07-08 16:26] LABS: VENOUS BLOOD GAS BASE EXCESS 6.5 mmol/L (0.0-2.0); VENOUS BLOOD PH 7.32 (7.32-7.43)
--- NOTE | 2016-07-08 17:33 | CP.PCM.HP ---
<Hever Lindsey - Last Filed: 07/08/16 18:00> History of Present Illness - History of Present Illness History of Present Illness: 66M w/ PMHx of CVA w/ residual R sided weakness, HTN, depression, pneumonia was brought to the ED by ambulance. As per nurse, patient's customs entry writer called EMS stating patient appeared sick. According to ED nurse patient's customs entry writer stated that patient appeared weak and she noticed patient has had a decreased appetite for the past two weeks. On arrival to ED patient was found to be in atrial flutter/atrial fibrillation. Patient also had a seizure, witnessed by ED staff. Upon interviewing patient, he was alert. However, patient could not state the reasons as to why he was brought to the hospital. Patient stated he was feeling okay and denied having any dizzines/headaches/vision changes. Patient also denied having any pain. Patient has no recollection of events that led him to being in the hospital. Patient's last hospitalization was in June 04 2016. Present on Admission - Present on Admission Any Indicators Present on Admission: No Review of Systems - Review of Systems Systems not reviewed;Unavailable: Acuity of Condition Past Patient History - Infectious Disease Hx of Infectious Diseases: None - Tetanus Immunizations Tetanus Immunization: Unknown - Past Medical History & Family History Past Medical History?: Yes - Past Social History Smoking Status: Former Smoker - CARDIAC Hx Cardiac Disorders: Yes Hx Hypertension: Yes - PULMONARY Hx Respiratory Disorders: No - NEUROLOGICAL Hx Neurological Disorder: Yes HX Cerebrovascular Accident: Yes (R sided paralysis) - HEENT Hx HEENT Problems: No - RENAL Hx Chronic Kidney Disease: No - ENDOCRINE/METABOLIC Hx Endocrine Disorders: No - HEMATOLOGICAL/ONCOLOGICAL Hx Blood Disorders: No - INTEGUMENTARY Hx Dermatological Problems: No - MUSCULOSKELETAL/RHEUMATOLOGICAL Hx Musculoskeletal Disorders: Yes Hx Falls: Yes - GASTROINTESTINAL Hx Gastrointestinal Disorders: No - GENITOURINARY/GYNECOLOGICAL Hx Genitourinary Disorders: No - PSYCHIATRIC Hx Psychophysiologic Disorder: Yes Hx Depression: Yes Hx Substance Use: No - SURGICAL HISTORY Hx Abdominal Aortic Aneurysm Repair: No - ANESTHESIA Hx Anesthesia Reactions: No Hx Malignant Hyperthermia: No Meds Allergies/Adverse Reactions: Allergies Allergy/AdvReac Type Severity Reaction Status Date / Time No Known Allergies Allergy Verified 07/06/16 15:19 Physical Exam - Constitutional Appears: No Acute Distress - Head Exam Head Exam: NORMOCEPHALIC - Eye Exam Eye Exam: Normal appearance - ENT Exam ENT Exam: Mucous Membranes Moist - Respiratory Exam Respiratory Exam: NORMAL BREATHING PATTERN. absent: Rales, Rhonchi, Wheezes - Cardiovascular Exam Cardiovascular Exam: Tachycardia, +S1, +S2 - GI/Abdominal Exam GI & Abdominal Exam: Soft. absent: Tenderness - Extremities Exam Extremities exam: Positive for: pedal pulses present. Negative for: calf tenderness, pedal edema, tenderness - Neurological Exam Neurological exam: Alert - Skin Skin Exam: Intact, Warm Results - Vital Signs Recent Vital Signs: Last Vital Signs Temp 99.1 F 07/08/16 11:04 Pulse 93 H 07/08/16 17:05 Resp 20 07/08/16 17:05 BP 154/98 H 07/08/16 17:05 Pulse Ox 99 07/08/16 17:05 - Labs Result Diagrams: 07/08/16 11:40 07/08/16 11:40 Labs: Laboratory Results - last 24 hr 07/08/16 16:15 pO2 35 VBG pH 7.32 VBG pCO2 65.0 H VBG HCO3 35.0 H VBG Total CO2 37.1 H VBG O2 Sat (Calc) 64.9 VBG Base Excess 6.5 H VBG Potassium 4.1 Sodium 141.0 Chloride 105.0 Glucose 95 Lactate 2.2 H FiO2 21.0 Venous Blood Potassium 4.1 - Imaging and Cardiology CT scan - head Status: Image reviewed by me Assessment & Plan - Assessment and Plan (Free Text) Assessment: 66M w/ hx of CVA and residual right sided weakness, HTN, depression, pneumonia, brought to the hospital via EMS after patient's customs entry writer noticed patient looked sick. Upon arrival to ED patient was in atrial flutter/atrial fibrillation. Patient also experienced seizure which was witnessed by the ED staff. Plan: Seizure -CT Head: left thalamus and left basal ganglia encephalomalacia. See report for full details -Ativan -Gabapentin -Keppra -Neuro checks -Fall precautions -Seizure precautions SIRS -Blood cultures -Urine cultures -Zosyn -Repeat lactate 2.2, decreased form 4.8 -ID consulted, recs appreciated -CXR: No acute findings. -BNP: 2330 Atrial fibrillation/HTN -HASBLED score of 4 -Cardiology consulted, recs appreciated -Aspirin 325 -Atenolol -Verapamil DVT/GI ppx -SCDs -Protonix Assessment and plan discussed with attending Sepsis Progress Note - Reassessment Type Date of Evaluation: 07/08/16 Time of Evaluation: 16:00 Reassessment Type: Non-invasive reassessment - Non Invasive Reassessment Were the most recent vital sign reviewed: Yes Vital Sign (Latest): Temp Pulse Resp BP Pulse Ox 99.1 F 93 H 20 154/98 H 99 07/08/16 11:04 07/08/16 17:05 07/08/16 17:05 07/08/16 17:05 07/08/16 17:05 Cardiovascular: Yes: Tachycardia Respiratory: Yes: Normal Breath Sounds Capillary Refill: Normal (Less than 2 sec) Pulses: Normal Dorsalis Pedis, Normal Posterior Tibialis Skin: Normal Color <Zelda Eaton - Last Filed: 07/09/16 08:18> Results - Vital Signs Recent Vital Signs: Last Vital Signs Temp 97.7 F 07/09/16 06:00 Pulse 89 07/09/16 06:00 Resp 20 07/09/16 06:00 BP 136/72 07/09/16 06:00 Pulse Ox 97 07/09/16 06:00 - Labs Result Diagrams: 07/08/16 11:40 07/09/16 05:30 Labs: Laboratory Results - last 24 hr 07/08/16 07/09/16 16:15 05:30 pO2 35 VBG pH 7.32 VBG pCO2 65.0 H VBG HCO3 35.0 H VBG Total CO2 37.1 H VBG O2 Sat (Calc) 64.9 VBG Base Excess 6.5 H VBG Potassium 4.1 Sodium 141.0 138 Chloride 105.0 103 Glucose 95 Lactate 2.2 H FiO2 21.0 Potassium 3.8 Carbon Dioxide 27 Anion Gap 12 BUN 12 Creatinine 1.0 Est GFR ( Amer) > 60 Est GFR (Non-Af Amer) > 60 Random Glucose 72 Calcium 9.3 Total Bilirubin 1.1 AST 64 H ALT 52 Alkaline Phosphatase 97 Total Protein 7.6 Albumin 3.3 Globulin 4.3 Albumin/Globulin Ratio 0.8 L Triglycerides 103 Cholesterol 134 LDL Cholesterol Direct 84 HDL Cholesterol 29 Venous Blood Potassium 4.1 Sepsis Progress Note - Non Invasive Reassessment Vital Sign (Latest): Temp Pulse Resp BP Pulse Ox 97.7 F 89 20 136/72 97 07/09/16 06:00 07/09/16 06:00 07/09/16 06:00 07/09/16 06:00 07/09/16 06:00 Attending/Attestation - Attestation I have personally seen and examined this patient.: Yes I have fully participated in the care of the patient.: Yes I have reviewed all pertinent clinical information: Yes Notes (Text): 07/08/16 66 year old male with past medical history of CVA with residual right sided weakness, hypertension, depression, pneumonia and tachyarrthmias/SVT who was brought in by [facility] for complaint of not feeling well and weakness. In the emergency room patient was found to have afib/aflutter which improved with cardizem and episode of witnessed seizure as well. CT head showed chronic left thalamus and left basal ganglia encephalomalacia. Patient will be admitted to the telemetry unit. Cardiology and neurology evaluation are requested. Continue with seizure precautions. Continue with ativan prn and keppra is ordered as well. Continue with aspirin, atenolol and verapramil. He is not on anticoagulation due to high HASBLED score. He also has +SIRS with elevated lactate level (which may be due to recent seizure) and tachycardia. ID evaluation was requested. Continue with zosyn while awaiting cultures. Ua/CXR were negative. Zelda Eaton MD Hospitalist.
[2016-07-08] MEDS ORDERED: Piperacillin/Tazobact 3.375 gm 100 ML IVPB SCH (18:00)
[2016-07-08] MEDS ORDERED: Non Formulary Medication (Gabapentin [Neurontin] 800 MG) PO SCH (18:00)
--- NOTE | 2016-07-08 18:33 | CARD ---
APPROVED REPORT EKG Measurement Heart [id number] <Conclusion> Sinus tachycardia with premature atrial complexes Left anterior fascicular block Inferior infarct, age undetermined Abnormal ECG
--- NOTE | 2016-07-08 18:35 | CARD ---
APPROVED REPORT EKG Measurement Heart [id number] <Conclusion> Atrial flutter with 2:1 AV conduction Left axis deviation Inferior infarct, age undetermined ST & T wave abnormality, consider lateral ischemia Abnormal ECG
[2016-07-08] MEDS: Cilostazol 100 mg Tab UD PO SCH (18:47)
--- NOTE | 2016-07-08 18:54 | CP.PCM.CON ---
History of Present Illness - History of Present Illness History of Present Illness: Infectious Disease Consultation: July 08, 2016 66 yo male with presentation to the hospital as patient's caregiver felt the patient appeared ill. The patient's manufacturing inspector state that the patient has been appearing increasingly ill over the past two weeks with worsening appetite. In ER, the patient was found to have atrial fibrillation. Multiple hospitalizations in the past 3 months. Patient himself denies symptoms but he has no idea how he got to [facility] [place] [place] this time. PMHx: Hypertension, depression, right sided hemiparesis, CVA history PSHx: None to my knowledge Allergies: NKDA Social Hx: No tobacco, EtOH, or illicit drug use. A resident of a boarding facility. Active Medications Aspirin (Ecotrin) 325 mg PO DAILY [facility] Atenolol (Tenormin) 50 mg PO DAILY [facility] Cilostazol (Pletal) 100 mg PO BID [facility] Cyproheptadine HCl (Periactin) 4 mg PO HS [facility] Duloxetine HCl (Cymbalta) 30 mg PO DAILY [facility] Gabapentin (Neurontin) 800 mg PO TID [facility] Piperacillin Sod/Tazobactam Sod (Zosyn 3.375 In Ns 100ml) 100 mls @ 200 mls/hr IVPB Q6 [facility] PRN Reason: Protocol Stop: 07/09/16 00:29 Last Admin: 07/08/16 18:34 Dose: Not Given Levetiracetam (Keppra) 500 mg PO BID [facility] Last Admin: 07/08/16 18:34 Dose: 500 mg Lisinopril (Zestril) 10 mg PO DAILY [facility] Multivitamins/Minerals (Therapeutic-M Tab) 1 tab PO DAILY [facility] Pantoprazole Sodium (Protonix Ec Tab) 40 mg PO 0630 [facility] Verapamil HCl (Calan Sr Tab) 120 mg PO DAILY [facility] Family Hx: None given ROS: No fevers, chills, nausea, vomiting, diarrhea, headaches, dizziness, abdominal pain, melena, hematuria, hematemesis, hematochezia, vision loss, hearing loss, loss of consciousness. Patient with chest pain, SOB, diaphoresis. Past Patient History - Infectious Disease Hx of Infectious Diseases: None - Tetanus Immunizations Tetanus Immunization: Unknown - Past Medical History & Family History Past Medical History?: Yes - Past Social History Smoking Status: Former Smoker - CARDIAC Hx Cardiac Disorders: Yes Hx Hypertension: Yes - PULMONARY Hx Respiratory Disorders: No - NEUROLOGICAL Hx Neurological Disorder: Yes HX Cerebrovascular Accident: Yes (R sided paralysis) - HEENT Hx HEENT Problems: No - RENAL Hx Chronic Kidney Disease: No - ENDOCRINE/METABOLIC Hx Endocrine Disorders: No - HEMATOLOGICAL/ONCOLOGICAL Hx Blood Disorders: No - INTEGUMENTARY Hx Dermatological Problems: No - MUSCULOSKELETAL/RHEUMATOLOGICAL Hx Musculoskeletal Disorders: Yes Hx Falls: Yes - GASTROINTESTINAL Hx Gastrointestinal Disorders: No - GENITOURINARY/GYNECOLOGICAL Hx Genitourinary Disorders: No - PSYCHIATRIC Hx Psychophysiologic Disorder: Yes Hx Depression: Yes Hx Substance Use: No - SURGICAL HISTORY Hx Abdominal Aortic Aneurysm Repair: No - ANESTHESIA Hx Anesthesia Reactions: No Hx Malignant Hyperthermia: No Meds Allergies/Adverse Reactions: Allergies Allergy/AdvReac Type Severity Reaction Status Date / Time No Known Allergies Allergy Verified 07/06/16 15:19 - Medications Medications: Current Medications Aspirin (Ecotrin) 325 mg PO DAILY [facility] Atenolol (Tenormin) 50 mg PO DAILY [facility] Cilostazol (Pletal) 100 mg PO BID [facility] Cyproheptadine HCl (Periactin) 4 mg PO HS [facility] Duloxetine HCl (Cymbalta) 30 mg PO DAILY [facility] Gabapentin (Neurontin) 800 mg PO TID [facility] Piperacillin Sod/Tazobactam Sod (Zosyn 3.375 In Ns 100ml) 100 mls @ 200 mls/hr IVPB Q6 [facility] PRN Reason: Protocol Stop: 07/09/16 00:29 Last Admin: 07/08/16 18:34 Dose: Not Given Levetiracetam (Keppra) 500 mg PO BID [facility] Last Admin: 07/08/16 18:34 Dose: 500 mg Lisinopril (Zestril) 10 mg PO DAILY [facility] Multivitamins/Minerals (Therapeutic-M Tab) 1 tab PO DAILY [facility] Pantoprazole Sodium (Protonix Ec Tab) 40 mg PO 0630 [facility] Verapamil HCl (Calan Sr Tab) 120 mg PO DAILY [facility] Physical Exam - Constitutional Appears: Non-toxic, No Acute Distress, Chronically Ill - Head Exam Head Exam: ATRAUMATIC, NORMOCEPHALIC - Eye Exam Eye Exam: EOMI, PERRL Pupil Exam: NORMAL ACCOMODATION, PERRL - ENT Exam ENT Exam: Mucous Membranes Moist, Normal External Ear Exam, TM's Normal Bilaterally - Neck Exam Neck exam: Positive for: Full Rom, Normal Inspection - Respiratory Exam Respiratory Exam: Clear to Auscultation Bilateral, Wheezes, NORMAL BREATHING PATTERN. absent: Rales, Rhonchi - Cardiovascular Exam Cardiovascular Exam: REGULAR RHYTHM, RRR, +S1, +S2 - GI/Abdominal Exam GI & Abdominal Exam: Normal Bowel Sounds, Soft. absent: Distended, Tenderness - Extremities Exam Extremities exam: Positive for: full ROM, normal inspection - Neurological Exam Neurological exam: Alert, CN II-XII Intact Additional comments: AAO x 2 - 3 right sided weakness. - Psychiatric Exam Psychiatric exam: Normal Affect, Normal Mood - Skin Skin Exam: Intact, Normal Color Results - Vital Signs Recent Vital Signs: Last Vital Signs Temp 99.1 F 07/08/16 11:04 Pulse 93 H 07/08/16 17:05 Resp 20 07/08/16 17:05 BP 154/98 H 07/08/16 17:05 Pulse Ox 99 07/08/16 17:05 - Labs Result Diagrams: 07/08/16 11:40 07/08/16 11:40 Labs: Laboratory Results - last 24 hr 07/08/16 16:15 pO2 35 VBG pH 7.32 VBG pCO2 65.0 H VBG HCO3 35.0 H VBG Total CO2 37.1 H VBG O2 Sat (Calc) 64.9 VBG Base Excess 6.5 H VBG Potassium 4.1 Sodium 141.0 Chloride 105.0 Glucose 95 Lactate 2.2 H FiO2 21.0 Venous Blood Potassium 4.1 Assessment & Plan - Assessment and Plan (Free Text) Assessment: 65 yo AA male returning to [facility] [place] [place] again for symptoms of weakness, general ill appearance, and poor appetitie. The patient denies symptoms but doesn't know how he got to [facility] [place] [place]. The patient has no fevers or leukocytosis at this time. Chest X-ray clean. The patient's CT of the head shows left thalamus and left basal ganglia encephalomalacia and other nonspecific changes. On Zosyn currently. Wells cultures sent. Monitor fever trend, WBC trend. Supportive care. Thank you for allowing me to participate in the care of the patient, we will follow with you.
--- NOTE | 2016-07-08 20:07 | PCM.SEPTIC ---
Sepsis Progress Note - Reassessment Type Date of Evaluation: 07/08/16 Time of Evaluation: 19:00 Reassessment Type: Non-invasive reassessment - Non Invasive Reassessment Were the most recent vital sign reviewed: Yes Vital Sign (Latest): Temp Pulse Resp BP Pulse Ox 98.9 F 93 H 16 148/100 H 99 07/08/16 15:30 07/08/16 18:57 07/08/16 18:57 07/08/16 18:57 07/08/16 18:57 Cardiovascular: Yes: Tachycardia Respiratory: Yes: Normal Breath Sounds. No: Accessory Muscle Use, Crackles, Rales, Rhonchi, Wheezing, Respiratory Distress Capillary Refill: Normal (Less than 2 sec) Skin: Normal Color, Warm, Dry
--- NOTE | 2016-07-08 20:37 | CON ---
DATE: 07/08/2016 HISTORY OF PRESENT ILLNESS: This is a 66-year-old male with past medical history of stroke with resi dual right-sided weakness, hypertension, depression and pneumonia brought by the lining caser to the [facility], appeared to be sick, and called to evaluate the patient. The patient while in the ER had a wi tnessed seizure. CAT scan of the head was done, which was reported negative and also on arrival, the patient was found to be in atrial flutter and fibrillation, which was brought under control. PAST MEDICAL HISTORY: As above. ALLERGIES: No known drug allergies. PHYSICAL EXAMINATION: VITAL SIGNS: Blood pressure 154/98. HEENT: Normocephalic, atraumatic. NECK: Supple. NEUROLOGIC: Awake, confused, not following simple commands and right-sided residual weakness from a previous stroke and spontaneous movement of the left side was noted. Deep tendon reflexes 1+. The r ight plantar was upgoing and sensory appears intact. Cerebellar and gait was deferred. IMPRESSION: New onset seizure, atrial fibrillation and flutter. CAT scan of the head was negative. PLAN: We will start him on Keppra 500 mg IV push q. 12 hours. We will do EEG and further management after the results of above tests. Bennett Finney MD cc: [id number] TT: 07/08/2016 20:36:16 Confirmation # [id number] Dictation # [id number] jose armando
[2016-07-08] MEDS ORDERED: Pneumococcal 23-Valent Vaccine IM ONE (22:24)
[2016-07-08] MEDS: Piperacillin/Tazobact 3.375 gm 100 ML IVPB SCH (23:35)
[2016-07-09] MEDS: Pantoprazole 40 mg EC Tab PO SCH ×2 (06:26→18:03)
[2016-07-09] MEDS: Piperacillin/Tazobact 3.375 gm 100 ML IVPB SCH ×2 (06:27→18:04)
[2016-07-09 06:29] LABS: ALB/GLOB RATIO 0.8 (1.1-1.8); ALKALINE PHOSPHATASE 97 U/L (38-133); ALT/SGPT 52 U/L (7-56); AST/SGOT 64 U/L (15-59); BILIRUBIN,TOTAL 1.1 mg/dL (0.2-1.3); BLOOD UREA NITROGEN 12 mg/dL (7-21); CALCIUM 9.3 mg/dL (8.4-10.5); CARBON DIOXIDE 27 mmol/L (21-33); CHLORIDE 103 mmol/L (95-110); CHOLESTEROL 134 mg/dL (130-200); GFR AFRICAN-AMERICAN > 60; GLUCOSE,RANDOM 72 mg/dL (70-110); POTASSIUM 3.8 mmol/L (3.6-5.0); SODIUM 138 mmol/L (132-148); TOTAL PROTEIN 7.6 g/dL (5.8-8.3)
[2016-07-09 08:37] LABS: ADD MANUAL DIFF? NO
[2016-07-09 08:39] LABS: BASO # 0.04 K/mm3 (0.0-2.0); BASO % 0.5 % (0.0-3.0); EOS # 0.1 (0.0-0.7); EOS % 1.4 % (1.5-5.0); GRAN # 4.74 (1.4-6.5); GRAN % 64.3 % (50.0-68.0); HEMATOCRIT 35.5 % (42.0-52.0); LYMPH # 1.7 (1.2-3.4); MEAN CELL VOLUME 78.9 fL (80.0-105.0); MEAN CORPUSCULAR HEMOGLOBIN 25.8 pg (25.0-35.0); MEAN CORPUSCULAR HGB CONC 32.7 g/dl (31.0-37.0); MEAN PLATELET VOLUME 10.2 fl (7.0-11.0); MONO # 0.8 (0.1-0.6); MONO % 10.8 % (1.0-6.0); PLATELET COUNT 309 10^3/uL (120.0-450.0); RED CELL DISTRIBUTION WIDTH 18.3 % (11.5-14.5); WHITE BLOOD COUNT 7.4 10^3/ul (4.5-11.0)
[2016-07-09] MEDS ORDERED: [UNRECOGNIZED DRUG - OTHER] PO SCH (10:00)
[2016-07-09] MEDS ORDERED: MULTIVITAMIN PO SCH (10:00)
[2016-07-09] MEDS ORDERED: FOLIC ACID PO SCH (10:00)
[2016-07-09] MEDS ORDERED: VERAPAMIL HCL PO SCH (10:00)
[2016-07-09] MEDS ORDERED: Aspirin 325 mg EC Tablets PO SCH (10:00)
[2016-07-09] MEDS ORDERED: IRON PO SCH (10:00)
[2016-07-09] MEDS: Verapamil 120 mg ER Tab PO SCH ×2 (10:22→18:01)
[2016-07-09] MEDS: Multivitamin With Minerals Tab PO SCH ×2 (10:26→18:01)
[2016-07-09] MEDS: Cilostazol 100 mg Tab UD PO SCH ×2 (10:26→18:01)
--- NOTE | 2016-07-09 15:49 | CP.PCM.PN ---
<Hever Lindsey - Last Filed: 07/09/16 15:56> Subjective - Date & Time of Evaluation Date of Evaluation: 07/09/16 Time of Evaluation: 10:15 - Subjective Subjective: Patient seen and examined this AM with medical attending. Patient laying in bed in no acute distress. Patient able to answer yes/no questions appropriately. Denied feeling any pain. Patient states he does not want to go to [facility]. Expressed he would like to be home once discharged from hospital. Objective - Vital Signs/Intake and Output Vital Signs (last 24 hours): Temp Pulse Resp BP Pulse Ox 97.6 F 84 18 148/94 H 97 07/09/16 12:00 07/09/16 14:00 07/09/16 12:00 07/09/16 12:00 07/09/16 06:00 Intake and Output: 07/09/16 07/09/16 06:59 18:59 Intake Total 0 0 Output Total 700 200 Balance -700 -200 - Medications Medications: Current Medications Aspirin (Ecotrin) 81 mg PO DAILY [facility] Atenolol (Tenormin) 50 mg PO DAILY [facility] Last Admin: 07/09/16 10:26 Dose: Not Given Cilostazol (Pletal) 100 mg PO BID [facility] Last Admin: 07/09/16 10:26 Dose: Not Given Cyproheptadine HCl (Periactin) 4 mg PO HS [facility] Last Admin: 07/08/16 23:35 Dose: Not Given Duloxetine HCl (Cymbalta) 30 mg PO DAILY [facility] Last Admin: 07/09/16 10:22 Dose: Not Given Gabapentin (Neurontin) 800 mg PO TID [facility] Last Admin: 07/09/16 10:25 Dose: Not Given Piperacillin Sod/Tazobactam Sod (Zosyn 3.375 In Ns 100ml) 100 mls @ 200 mls/hr IVPB Q6 [facility] PRN Reason: Protocol Last Admin: 07/09/16 06:27 Dose: 200 mls/hr Levetiracetam (Keppra) 500 mg PO BID [facility] Last Admin: 07/09/16 10:22 Dose: Not Given Lisinopril (Zestril) 10 mg PO DAILY [facility] Last Admin: 07/09/16 10:26 Dose: Not Given Multivitamins/Minerals (Therapeutic-M Tab) 1 tab PO DAILY [facility] Last Admin: 07/09/16 10:26 Dose: Not Given Pantoprazole Sodium (Protonix Ec Tab) 40 mg PO 0630 [facility] Last Admin: 07/09/16 06:26 Dose: Not Given Verapamil HCl (Calan Sr Tab) 120 mg PO DAILY [facility] Last Admin: 07/09/16 10:22 Dose: Not Given - Labs Labs: 07/09/16 08:36 07/09/16 05:30 PT 12.1 Seconds (9.9-11.8) H 07/08/16 11:40 INR 1.12 (0.93-1.08) H 07/08/16 11:40 APTT 29.9 Seconds (23.7-30.8) 07/08/16 11:40 - Constitutional Appears: No Acute Distress, Older Than Stated Age - Head Exam Head Exam: NORMOCEPHALIC - Eye Exam Eye Exam: Normal appearance - Respiratory Exam Respiratory Exam: NORMAL BREATHING PATTERN - Cardiovascular Exam Cardiovascular Exam: +S1, +S2 - GI/Abdominal Exam GI & Abdominal Exam: Soft - Neurological Exam Neurological Exam: Alert, Awake - Psychiatric Exam Psychiatric exam: Normal Mood - Skin Skin Exam: Dry, Intact, Warm Assessment and Plan - Assessment and Plan (Free Text) Assessment: 66M w/ hx of CVA and residual right sided weakness, HTN, depression, pneumonia, brought to the hospital via EMS after patient's auto brake mechanic noticed patient looked sick. Upon arrival to ED patient was experiencing tachyarrythmias . Patient also experienced seizure which was witnessed by the ED staff. Plan: Seizure -No seizures overnight -CT Head: left thalamus and left basal ganglia encephalomalacia. See report for full details -Ativan -Gabapentin -Keppra -Neuro checks -Fall precautions -Seizure precautions -Swallow evaluation done: recommends finely chopped consistency diet with thin liquids; aspiration precautions SIRS -Blood cultures; no growth after 24 hrs -Urine cultures: no growth -Zosyn -ID consulted, awaiting recommendations -CXR: No acute findings. Atrial fibrillation/HTN -Improved w/ cardizem in ED -HASBLED score of 4 -Cardiology consulted, will not start anti-coagulation due to patient's history of intra-cranial bleed. Further recs appreciated -Aspirin changed from 325mg to 81mg due to risk of bleed, as per neuro recs -Atenolol -Verapamil -Heart rate: 84, VSS DVT/GI ppx -SCDs -Protonix Assessment and plan discussed with attending <Zelda Eaton - Last Filed: 07/09/16 16:20> Objective - Vital Signs/Intake and Output Vital Signs (last 24 hours): Temp Pulse Resp BP Pulse Ox 97.6 F 84 18 148/94 H 97 07/09/16 12:00 07/09/16 14:00 07/09/16 12:00 07/09/16 12:00 07/09/16 06:00 Intake and Output: 07/09/16 07/09/16 06:59 18:59 Intake Total 0 0 Output Total 700 200 Balance -700 -200 - Medications Medications: Current Medications Aspirin (Ecotrin) 81 mg PO DAILY [facility] Atenolol (Tenormin) 50 mg PO DAILY [facility] Last Admin: 07/09/16 10:26 Dose: Not Given Cilostazol (Pletal) 100 mg PO BID [facility] Last Admin: 07/09/16 10:26 Dose: Not Given Cyproheptadine HCl (Periactin) 4 mg PO HS [facility] Last Admin: 07/08/16 23:35 Dose: Not Given Duloxetine HCl (Cymbalta) 30 mg PO DAILY [facility] Last Admin: 07/09/16 10:22 Dose: Not Given Gabapentin (Neurontin) 800 mg PO TID [facility] Last Admin: 07/09/16 14:00 Dose: Not Given Piperacillin Sod/Tazobactam Sod (Zosyn 3.375 In Ns 100ml) 100 mls @ 200 mls/hr IVPB Q6 [facility] PRN Reason: Protocol Last Admin: 07/09/16 06:27 Dose: 200 mls/hr Sodium Chloride (Sodium Chloride 0.9%) 1,000 mls @ 50 mls/hr IV .Q20H [facility] Levetiracetam (Keppra) 500 mg PO BID [facility] Last Admin: 07/09/16 10:22 Dose: Not Given Lisinopril (Zestril) 10 mg PO DAILY [facility] Last Admin: 07/09/16 10:26 Dose: Not Given Multivitamins/Minerals (Therapeutic-M Tab) 1 tab PO DAILY [facility] Last Admin: 07/09/16 10:26 Dose: Not Given Pantoprazole Sodium (Protonix Ec Tab) 40 mg PO 0630 [facility] Last Admin: 07/09/16 06:26 Dose: Not Given Verapamil HCl (Calan Sr Tab) 120 mg PO DAILY [facility] Last Admin: 07/09/16 10:22 Dose: Not Given - Labs Labs: 07/09/16 08:36 07/09/16 05:30 PT 12.1 Seconds (9.9-11.8) H 07/08/16 11:40 INR 1.12 (0.93-1.08) H 07/08/16 11:40 APTT 29.9 Seconds (23.7-30.8) 07/08/16 11:40 Attending/Attestation - Attestation I have personally seen and examined this patient.: Yes I have fully participated in the care of the patient.: Yes I have reviewed all pertinent clinical information, including history, physical exam and plan: Yes Notes (Text): 07/09/16 16:17 66 year old male with past medical history of CVA with residual right sided weakness, hypertension, depression, pneumonia and tachyarrthmias/SVT who was brought in by [facility] for complaint of not feeling well and weakness. He had witnessed episode of seizure in ER as well as afib/aflutter which improved with cardizem. CT head showed chronic left thalamus and left basal ganglia encephalomalacia. Cardiology and neurology evaluation were appreciated. Continue with keppa. Continue with seizure precautions. He is also on atenolol and verapramil. Will cut down on his aspirin dose as per neurology recommendations. He is not on anticoagulation due to high HASBLED score. He is pending PT evaluation. He also had +SIRS with elevated lactate level and tachycardia. He is on zosyn while awaiting cultures. Ua/CXR were negative. ID is following. Zelda Eaton MD Hospitalist.
[2016-07-09] MEDS: Sodium Chloride 0.9% 1,000 ML IV SCH (18:05)
--- NOTE | 2016-07-09 18:26 | CON ---
DATE: 07/09/2016 REASON FOR CONSULTATION: Atrial flutter with 2:1 conduction. HISTORY OF PRESENT ILLNESS: The patient is a 66-year-old male who has a history of CVA with residual right-sided weakness, has a history of hypertension, depression, pneumonia, and was brought in by am hailey that was activated by the patient's shingle bolt cutter at home. According to the shingle bolt cutter, the patie nt appeared sick. At this time, the patient has expressive aphasia and cannot appropriately verbally answer my questions and even asking for answer by yes or no does not appear to be a reliable as he a nswered yes all the time. The patient was admitted recently and brain MRI performed last month revea led 4 mm focus of acute hemorrhage in the left posterior frontal deep white matter extensive, too num erous to count tiny foci of chronic intracranial hemorrhage, diffuse in nature of uncertain etiology, but could be related to cerebral amyloid angiopathy. Findings compatible with a large chronic hemor rhage in the left basal ganglia. According to ____ at that time, the patient refused nursing bob e placement. The patient had a Lexisc[facility] report done in April of this year, which was reported as pro bable abnormal SPECT myocardial perfusion study. Six inferolateral defects suspicious of previous my ocardial injury and normal gated wall motion of the left ventricle. MEDICATIONS: Verapamil 120 mg daily, aspirin 81 mg once a day, Keppra 500 mg twice a day, Neurontin 800 mg t.i.d., Pletal 100 mg twice a day, lisinopril at 10 mg once a day. All those medications are on hold pending the swallow evaluation. REVIEW OF SYSTEMS: No documented seizures on the floor. No reported ventricular arrhythmia. PHYSICAL EXAMINATION: GENERAL: The patient is a middle-aged male who does not appear to be in any respiratory distress. H e has expressive aphasia and cannot name simple objects like paper or a pen. VITAL SIGNS: Blood pressure 142/94, heart rate 88, temperature 97.6, respiration 18. HEENT: No pallor or icterus. NECK: No JVD. CHEST: Clear. HEART: S1, S2 irregular. EXTREMITIES: No edema. LABORATORY DATA: Hemoglobin and hematocrit 11.6 and 35.5, white count and platelet count are within normal limits. SMA-7 is within normal limits. One set of troponin is negative. INR is 1.12, PTT 29 .9. Repeat EKG revealed sinus tachycardia at rate of 107 with atrial premature beats, left anterior fascicular block, old infarct of indeterminate age. Head CT scan done on admission yesterday reveale d left thalamus and left basal ganglia encephalomalacia, moderate nonspecific white matter changes. Echocardiographic study performed in April of this year revealed an ejection fraction of 50%, moderat e to severe aortic insufficiency, small to moderate left pleural effusion. ASSESSMENT: 1. Rule out acute cerebrovascular accident. 2. History of old thalamic and basal ganglia hemorrhage and scattered numerous tiny hemorrhagic foci noted on recent MRI. 3. Paroxysmal atrial flutter. 4. Uncontrolled hypertension. RECOMMENDATIONS: The case was discussed with the medical team including Dr. Eaton. I recommended di scontinuation of all antiplatelets as well as Pletal, resumption of verapamil and lisinopril once swa llow eval is completed and successful. Segun Vieyra MD cc: [id number] TT: 07/09/2016 18:25:32 Confirmation # [id number] Dictation # [id number] grady
--- NOTE | 2016-07-10 00:25 | CP.PCM.PN ---
Subjective - Date & Time of Evaluation Date of Evaluation: 07/09/16 Time of Evaluation: 22:00 - Subjective Subjective: Infectious Disease Follow Up: July 09, 2016 66 yo male with presentation to the hospital as patient's caregiver felt the patient appeared ill. The patient's prevocational/rehabilitation counselor state that the patient has been appearing increasingly ill over the past two weeks with worsening appetite. In ER, the patient was found to have atrial fibrillation. Multiple hospitalizations in the past 3 months. Patient himself denies symptoms but he has no idea how he got to [facility] this time. The patient is insistent that he is discharged home when it is time to leave the hospital. Remains on Zosyn. Cultures to date remain negative. Objective - Vital Signs/Intake and Output Vital Signs (last 24 hours): Temp Pulse Resp BP Pulse Ox 97.7 F 93 H 20 152/94 H 97 07/09/16 20:33 07/09/16 20:33 07/09/16 20:33 07/09/16 20:33 07/09/16 06:00 Intake and Output: 07/09/16 07/10/16 18:59 06:59 Intake Total 0 Output Total 200 Balance -200 - Medications Medications: Current Medications Aspirin (Ecotrin) 81 mg PO DAILY [facility] Last Admin: 07/09/16 18:00 Dose: 81 mg Atenolol (Tenormin) 50 mg PO DAILY [facility] Last Admin: 07/09/16 18:02 Dose: 50 mg Cilostazol (Pletal) 100 mg PO BID [facility] Last Admin: 07/09/16 18:01 Dose: 100 mg Cyproheptadine HCl (Periactin) 4 mg PO HS [facility] Last Admin: 07/08/16 23:35 Dose: Not Given Duloxetine HCl (Cymbalta) 30 mg PO DAILY [facility] Last Admin: 07/09/16 10:22 Dose: Not Given Gabapentin (Neurontin) 800 mg PO TID [facility] Last Admin: 07/09/16 18:01 Dose: 800 mg Piperacillin Sod/Tazobactam Sod (Zosyn 3.375 In Ns 100ml) 100 mls @ 200 mls/hr IVPB Q6 [facility] PRN Reason: Protocol Last Admin: 07/09/16 18:04 Dose: 200 mls/hr Sodium Chloride (Sodium Chloride 0.9%) 1,000 mls @ 50 mls/hr IV .Q20H [facility] Last Admin: 07/09/16 18:05 Dose: 50 mls/hr Levetiracetam (Keppra) 500 mg PO BID [facility] Last Admin: 07/09/16 18:02 Dose: 500 mg Lisinopril (Zestril) 10 mg PO DAILY [facility] Last Admin: 07/09/16 18:00 Dose: 10 mg Multivitamins/Minerals (Therapeutic-M Tab) 1 tab PO DAILY [facility] Last Admin: 07/09/16 18:01 Dose: 1 tab Pantoprazole Sodium (Protonix Ec Tab) 40 mg PO 0630 [facility] Last Admin: 07/09/16 18:03 Dose: 40 mg Verapamil HCl (Calan Sr Tab) 120 mg PO DAILY [facility] Last Admin: 07/09/16 18:01 Dose: 120 mg - Labs Labs: 07/09/16 08:36 07/09/16 05:30 PT 12.1 Seconds (9.9-11.8) H 07/08/16 11:40 INR 1.12 (0.93-1.08) H 07/08/16 11:40 APTT 29.9 Seconds (23.7-30.8) 07/08/16 11:40 - Constitutional Appears: Non-toxic, No Acute Distress, Chronically Ill - Head Exam Head Exam: ATRAUMATIC, NORMOCEPHALIC - Eye Exam Eye Exam: EOMI, PERRL Pupil Exam: NORMAL ACCOMODATION, PERRL - ENT Exam ENT Exam: Mucous Membranes Moist, Normal External Ear Exam, TM's Normal Bilaterally - Neck Exam Neck Exam: Full ROM, Normal Inspection - Respiratory Exam Respiratory Exam: Clear to Ausculation Bilateral, NORMAL BREATHING PATTERN. absent: Rales, Rhonchi, Wheezes - Cardiovascular Exam Cardiovascular Exam: REGULAR RHYTHM, RRR, +S1, +S2 - GI/Abdominal Exam GI & Abdominal Exam: Soft, Normal Bowel Sounds. absent: Distended, Tenderness - Extremities Exam Extremities Exam: Full ROM, Normal Inspection - Neurological Exam Neurological Exam: Alert, Awake, CN II-XII Intact Additional comments: AAO x 2 - 3 right sided weakness. - Psychiatric Exam Psychiatric exam: Normal Affect, Normal Mood - Skin Skin Exam: Intact, Normal Color Assessment and Plan - Assessment and Plan (Free Text) Assessment: 65 yo AA male returning to [facility] again for symptoms of weakness, general ill appearance, and poor appetitie. The patient denies symptoms but doesn't know how he got to [facility]. The patient has no fevers or leukocytosis at this time. Chest X-ray clean. The patient's CT of the head shows left thalamus and left basal ganglia encephalomalacia and other nonspecific changes. No further seizure episodes. On Zosyn currently. Wells cultures sent. Monitor fever trend, WBC trend. Supportive care. Thank you for allowing me to participate in the care of the patient, we will follow with you.
[2016-07-10] MEDS: Piperacillin/Tazobact 3.375 gm 100 ML IVPB SCH ×4 (00:56→17:41)
[2016-07-10] MEDS: Pantoprazole 40 mg EC Tab PO SCH (06:09)
[2016-07-10] MEDS: Multivitamin With Minerals Tab PO SCH (11:38)
[2016-07-10] MEDS: Verapamil 120 mg ER Tab PO SCH (11:39)
--- NOTE | 2016-07-10 12:15 | PN ---
DATE: 07/10/2016 SUBJECTIVE: The patient has expressive aphasia and does not appear to be in any distress. PHYSICAL EXAMINATION: VITAL SIGNS: Blood pressure 157/106, heart rate 72, temperature 98.3, respirations 20. HEENT: No icterus, minimal pallor. NECK: No JVD. CHEST: Clear. HEART: S1, S2 regular. EXTREMITIES: No edema. ASSESSMENT: 1. Status post multiple hemorrhagic cerebrovascular accidents. 2. Consider seizure disorder. 3. Hypertension. 4. Abnormal EKG with evidence of left anterior fascicular block and anterior infarct of indeterminat e age. 5. Paroxysmal atrial flutter. RECOMMENDATIONS: Continue current Keppra at 500 mg twice a day, aspirin was reduced to 81 mg once a day. Continue atenolol at 50 mg once a day. Continue Zestril at 10 mg once a day, IV Zosyn 3.375 gr ams intravenous q. 6 hours. Pletal was discontinued. The patient is not a suitable candidate for an ticoagulation. Segun Vieyra MD cc: [id number] TT: 07/10/2016 12:14:43 Confirmation # [id number] Dictation # [id number] tn
[2016-07-10] MEDS: Sodium Chloride 0.9% 1,000 ML IV SCH ×2 (14:14→17:42)
--- NOTE | 2016-07-10 15:56 | CP.PCM.PN ---
Subjective - Date & Time of Evaluation Date of Evaluation: 07/10/16 Time of Evaluation: 14:15 - Subjective Subjective: Infectious Disease Follow Up: July 10, 2016 66 yo male with presentation to the hospital as patient's caregiver felt the patient appeared ill. 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 In ER, the patient was found to have atrial fibrillation. Multiple hospitalizations in the past 3 months. Patient himself denies symptoms but he has no idea how he got to [facility] this time. The patient is insistent that he is discharged home when it is time to leave the hospital. Remains on Zosyn. Cultures to date remain negative. Objective - Vital Signs/Intake and Output Vital Signs (last 24 hours): Temp Pulse Resp BP Pulse Ox 97.7 F 85 20 157/106 H 93 L 07/10/16 12:00 07/10/16 14:00 07/10/16 12:00 07/10/16 12:00 07/10/16 06:00 Intake and Output: 07/10/16 07/10/16 06:59 18:59 Intake Total 60 Balance 60 - Medications Medications: Current Medications Aspirin (Ecotrin) 81 mg PO DAILY [facility] Last Admin: 07/10/16 11:39 Dose: 81 mg Atenolol (Tenormin) 50 mg PO DAILY [facility] Last Admin: 07/10/16 11:38 Dose: 50 mg Cyproheptadine HCl (Periactin) 4 mg PO HS [facility] Last Admin: 07/08/16 23:35 Dose: Not Given Duloxetine HCl (Cymbalta) 30 mg PO DAILY [facility] Last Admin: 07/10/16 11:39 Dose: 30 mg Gabapentin (Neurontin) 800 mg PO TID [facility] Last Admin: 07/10/16 11:39 Dose: 800 mg Piperacillin Sod/Tazobactam Sod (Zosyn 3.375 In Ns 100ml) 100 mls @ 200 mls/hr IVPB Q6 [facility] PRN Reason: Protocol Last Admin: 07/10/16 12:24 Dose: 200 mls/hr Sodium Chloride (Sodium Chloride 0.9%) 1,000 mls @ 50 mls/hr IV .Q20H [facility] Last Admin: 07/10/16 14:14 Dose: Not Given Levetiracetam (Keppra) 500 mg PO BID [facility] Last Admin: 07/10/16 11:39 Dose: 500 mg Lisinopril (Zestril) 10 mg PO DAILY [facility] Last Admin: 07/10/16 11:39 Dose: 10 mg Multivitamins/Minerals (Therapeutic-M Tab) 1 tab PO DAILY [facility] Last Admin: 07/10/16 11:38 Dose: 1 tab Pantoprazole Sodium (Protonix Ec Tab) 40 mg PO 0630 [facility] Last Admin: 07/10/16 06:09 Dose: 40 mg Verapamil HCl (Calan Sr Tab) 120 mg PO DAILY [facility] Last Admin: 07/10/16 11:39 Dose: 120 mg - Labs Labs: 07/09/16 08:36 07/09/16 05:30 PT 12.1 Seconds (9.9-11.8) H 07/08/16 11:40 INR 1.12 (0.93-1.08) H 07/08/16 11:40 APTT 29.9 Seconds (23.7-30.8) 07/08/16 11:40 - Constitutional Appears: Non-toxic, No Acute Distress, Chronically Ill - Head Exam Head Exam: ATRAUMATIC, NORMOCEPHALIC - Eye Exam Eye Exam: EOMI, PERRL Pupil Exam: NORMAL ACCOMODATION, PERRL - ENT Exam ENT Exam: Mucous Membranes Moist, Normal External Ear Exam, TM's Normal Bilaterally - Neck Exam Neck Exam: Full ROM, Normal Inspection - Respiratory Exam Respiratory Exam: Clear to Ausculation Bilateral, NORMAL BREATHING PATTERN. absent: Rales, Rhonchi, Wheezes - Cardiovascular Exam Cardiovascular Exam: REGULAR RHYTHM, RRR, +S1, +S2 - GI/Abdominal Exam GI & Abdominal Exam: Soft, Normal Bowel Sounds. absent: Distended, Tenderness - Extremities Exam Extremities Exam: Full ROM, Normal Inspection - Neurological Exam Neurological Exam: Alert, Awake, CN II-XII Intact Additional comments: AAO x 2 -3. Right sided weakness. - Psychiatric Exam Psychiatric exam: Normal Affect, Normal Mood - Skin Skin Exam: Intact, Normal Color Assessment and Plan - Assessment and Plan (Free Text) Assessment: 65 yo AA male returning to [facility] again for symptoms of weakness, general ill appearance, and poor appetitie. The patient denies symptoms but doesn't know how he got to [facility] The patient has no fevers or leukocytosis at this time. Chest X-ray clean. The patient's CT of the head shows left thalamus and left basal ganglia encephalomalacia and other nonspecific changes. No further seizure episodes. On Zosyn currently. Wells cultures sent. Monitor fever trend, WBC trend. Supportive care. Thank you for allowing me to participate in the care of the patient, we will follow with you.
--- NOTE | 2016-07-10 16:36 | CP.PCM.PN ---
<Hever Lindsey - Last Filed: 07/10/16 16:43> Subjective - Date & Time of Evaluation Date of Evaluation: 07/10/16 Time of Evaluation: 08:30 - Subjective Subjective: Patient seen and examined this morning. Patient had multiple episodes of vtac over night. Patient does not report any complaints. This morning patient refused lab work, stating he did not want to get a needle stick. Risks of not having blood work done due to his seizure and cardiac history were explained to the patient, however after extensive discussion, patient still denied getting blood work done. Currently patient is in no acute distress and eating breakfast comfortably in bed. Objective - Vital Signs/Intake and Output Vital Signs (last 24 hours): Temp Pulse Resp BP Pulse Ox 97.7 F 85 20 157/106 H 93 L 07/10/16 12:00 07/10/16 14:00 07/10/16 12:00 07/10/16 12:00 07/10/16 06:00 Intake and Output: 07/10/16 07/10/16 06:59 18:59 Intake Total 60 Balance 60 - Medications Medications: Current Medications Aspirin (Ecotrin) 81 mg PO DAILY [facility] Last Admin: 07/10/16 11:39 Dose: 81 mg Atenolol (Tenormin) 50 mg PO DAILY [facility] Last Admin: 07/10/16 11:38 Dose: 50 mg Cyproheptadine HCl (Periactin) 4 mg PO HS [facility] Last Admin: 07/08/16 23:35 Dose: Not Given Duloxetine HCl (Cymbalta) 30 mg PO DAILY [facility] Last Admin: 07/10/16 11:39 Dose: 30 mg Gabapentin (Neurontin) 800 mg PO TID [facility] Last Admin: 07/10/16 14:00 Dose: Not Given Piperacillin Sod/Tazobactam Sod (Zosyn 3.375 In Ns 100ml) 100 mls @ 200 mls/hr IVPB Q6 [facility] PRN Reason: Protocol Last Admin: 07/10/16 12:24 Dose: 200 mls/hr Sodium Chloride (Sodium Chloride 0.9%) 1,000 mls @ 50 mls/hr IV .Q20H [facility] Last Admin: 07/10/16 14:14 Dose: Not Given Levetiracetam (Keppra) 500 mg PO BID [facility] Last Admin: 07/10/16 11:39 Dose: 500 mg Lisinopril (Zestril) 10 mg PO DAILY [facility] Last Admin: 07/10/16 11:39 Dose: 10 mg Multivitamins/Minerals (Therapeutic-M Tab) 1 tab PO DAILY [facility] Last Admin: 07/10/16 11:38 Dose: 1 tab Pantoprazole Sodium (Protonix Ec Tab) 40 mg PO 0630 [facility] Last Admin: 07/10/16 06:09 Dose: 40 mg Verapamil HCl (Calan Sr Tab) 120 mg PO DAILY [facility] Last Admin: 07/10/16 11:39 Dose: 120 mg - Labs Labs: 07/09/16 08:36 07/09/16 05:30 PT 12.1 Seconds (9.9-11.8) H 07/08/16 11:40 INR 1.12 (0.93-1.08) H 07/08/16 11:40 APTT 29.9 Seconds (23.7-30.8) 07/08/16 11:40 - Constitutional Appears: No Acute Distress - Head Exam Head Exam: NORMOCEPHALIC - Eye Exam Eye Exam: Normal appearance - ENT Exam ENT Exam: Mucous Membranes Moist - Respiratory Exam Respiratory Exam: NORMAL BREATHING PATTERN - Cardiovascular Exam Cardiovascular Exam: +S1, +S2 - GI/Abdominal Exam GI & Abdominal Exam: Soft - Neurological Exam Neurological Exam: Alert, Awake - Psychiatric Exam Psychiatric exam: Normal Mood - Skin Skin Exam: Dry, Normal Color, Warm Assessment and Plan - Assessment and Plan (Free Text) Assessment: 6M w/ hx of CVA and residual right sided weakness, HTN, depression, pneumonia, brought to the hospital via EMS 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 Upon arrival to ED patient was experiencing tachyarrythmias . Patient also experienced seizure which was witnessed by the ED staff. Plan: Seizure -No seizures since admission -CT Head: left thalamus and left basal ganglia encephalomalacia. See report for full details -Ativan -Gabapentin -Keppra -Neuro checks -Fall precautions -Seizure precautions -Swallow evaluation done: recommends finely chopped consistency diet with thin liquids; aspiration precautions -F/u EEG results -Started on Lipitor 20mg. Will monitor LFTs. SIRS -Blood cultures; no growth after 48 hrs -Urine cultures: no growth -Zosyn -ID consulted, recommendations appreciated -CXR: No acute findings. Atrial fibrillation/HTN -Improved w/ cardizem in ED -HASBLED score of 4 -Cardiology consulted, will not start anti-coagulation due to patient's history of intra-cranial bleed. Further recs appreciated -Aspirin changed from 325mg to 81mg due to risk of bleed, as per neuro recs -Atenolol -Verapamil -Heart rate: 84, VSS DVT/GI ppx -SCDs -Protonix Patient disposition discussed with case management Assessment and plan discussed with medical attending. <Zelda Eaton - Last Filed: 07/10/16 17:22> Objective - Vital Signs/Intake and Output Vital Signs (last 24 hours): Temp Pulse Resp BP Pulse Ox 97.7 F 85 20 157/106 H 93 L 07/10/16 12:00 07/10/16 14:00 07/10/16 12:00 07/10/16 12:00 07/10/16 06:00 Intake and Output: 07/10/16 07/10/16 06:59 18:59 Intake Total 60 Balance 60 - Medications Medications: Current Medications Aspirin (Ecotrin) 81 mg PO DAILY [facility] Last Admin: 07/10/16 11:39 Dose: 81 mg Atenolol (Tenormin) 50 mg PO DAILY [facility] Last Admin: 07/10/16 11:38 Dose: 50 mg Atorvastatin Calcium (Lipitor) 20 mg PO DIN [facility] Cyproheptadine HCl (Periactin) 4 mg PO HS [facility] Last Admin: 07/08/16 23:35 Dose: Not Given Duloxetine HCl (Cymbalta) 30 mg PO DAILY [facility] Last Admin: 07/10/16 11:39 Dose: 30 mg Gabapentin (Neurontin) 800 mg PO TID [facility] Last Admin: 07/10/16 14:00 Dose: Not Given Piperacillin Sod/Tazobactam Sod (Zosyn 3.375 In Ns 100ml) 100 mls @ 200 mls/hr IVPB Q6 [facility] PRN Reason: Protocol Last Admin: 07/10/16 12:24 Dose: 200 mls/hr Sodium Chloride (Sodium Chloride 0.9%) 1,000 mls @ 50 mls/hr IV .Q20H [facility] Last Admin: 07/10/16 14:14 Dose: Not Given Levetiracetam (Keppra) 500 mg PO BID [facility] Last Admin: 07/10/16 11:39 Dose: 500 mg Lisinopril (Zestril) 10 mg PO DAILY [facility] Last Admin: 07/10/16 11:39 Dose: 10 mg Multivitamins/Minerals (Therapeutic-M Tab) 1 tab PO DAILY [facility] Last Admin: 07/10/16 11:38 Dose: 1 tab Pantoprazole Sodium (Protonix Ec Tab) 40 mg PO 0630 [facility] Last Admin: 07/10/16 06:09 Dose: 40 mg Verapamil HCl (Calan Sr Tab) 120 mg PO DAILY [facility] Last Admin: 07/10/16 11:39 Dose: 120 mg - Labs Labs: 07/09/16 08:36 07/09/16 05:30 PT 12.1 Seconds (9.9-11.8) H 07/08/16 11:40 INR 1.12 (0.93-1.08) H 07/08/16 11:40 APTT 29.9 Seconds (23.7-30.8) 07/08/16 11:40 Attending/Attestation - Attestation I have personally seen and examined this patient.: Yes I have fully participated in the care of the patient.: Yes I have reviewed all pertinent clinical information, including history, physical exam and plan: Yes Notes (Text): 07/10/16 17:17 66 year old male with past medical history of CVA with residual right sided weakness, hypertension, depression, pneumonia and tachyarrthmias/SVT who was brought in by [facility] for complaint of not feeling well and feeling weak. While in ER he had witnessed episode of seizure as well as afib/aflutter which improved with cardizem. CT head showed chronic left thalamus and left basal ganglia encephalomalacia. He is being followed by cardiology and neurology. He had EEG done this morning with report pending. He has been started on keppra. His is on aspirin 81 mg and started on statin. He is not on anticoagulation due to high HASBLED score. He is on atenolol and verapramil. He had some beats of vtach (asymptomatic) on the monitor overnight. However he refused labs this morning although we have explained need to check electrolytes. He also had +SIRS with elevated lactate level and tachycardia. He is on zosyn while awaiting cultures. Ua/CXR were negative. ID is following. PT evaluation was pending today, although patient is refusing to go to [facility] and wishes to go home soon. Zelda Eaton MD Hospitalist.
--- NOTE | 2016-07-10 18:45 | PN ---
DATE: 07/10/2016 CHIEF COMPLAINT: Follow up for seizure. SUBJECTIVE: The patient is seen and examined at bedside. The patient has no longer had any seizures . He has old left MCA encephalomalacia which corresponds with his residual right-sided weakness. Th erefore, I have agreed to place him on Keppra 500 mg p.o. b.i.d. for seizure prophylaxis. He is also on gabapentin for neuropathic pain. He has also cognitive impairment from vascular dementia given t hat he has micro infarcts with his previous MRI which is consistent with cerebral amyloid angiopathy. His blood pressures are stable. He is not willing go to subacute rehabilitation; wants home PT, ca se material manager is on the case. PAST MEDICAL HISTORY: Hypertension, history of left MCA territory infarct with residual right-sided weakness, history of cognitive impairment from vascular dementia, history of cerebral amyloid angiopa thy from micro infarcts in the brain. REVIEW OF SYSTEMS: A 14-point review of systems is negative except for the HPI. ALLERGIES: No known drug allergies. SOCIAL HISTORY: No illicit drug use, smoking, or ETOH abuse. FAMILY HISTORY: Noncontributory. MEDICATIONS: Reviewed via nurse's reconciliation sheet. PHYSICAL EXAMINATION: VITAL SIGNS: Temperature 97.7, pulse rate 88, blood pressure 156/106, respiratory rate 20. GENERAL: The patient is sitting up in bed in no acute distress. HEENT: Atraumatic, normocephalic. PERRLA. Extraocular muscles intact. NECK: Supple, no JVD, no adenopathy noted. LUNGS: Clear to auscultation. No adventitious sounds. HEART: S1, S2, normal rate and rhythm. No murmurs, rubs, or gallops. ABDOMEN: Soft, nontender, nondistended. Bowel sounds are present. EXTREMITIES: No clubbing, no cyanosis. Peripheral pulses 2+ bilaterally. NEUROLOGIC: The patient is alert, oriented to person, place and year. Recall after 5 minutes is 0/3 . Poor attention span, slow thought process, cannot spell the word world backwards. Speech is dysar thric, residual from prior CVA, but no aphasia noted. Cranial nerves II through XII are intact. MOTOR: Has right-sided hemiparesis which is spastic in nature from residual from his prior CVA, othe rwise with left side is intact. Toes downgoing bilaterally. SENSORY: Light touch, pinprick, proprioception, vibration is intact. DTRs are 1+ throughout. COORDINATION: [id number] intact on the left. Difficult on the right due to a residual right hem iparesis. LABORATORY DATA: Sodium is 138, potassium 3.8, chloride 103, carbon dioxide 27, BUN of 12, creatinin e 1. Random glucose 72. ASSESSMENT AND PLAN: This is a 66-year-old man with past medical history of hypertension, history of left middle cerebral artery encephalomalacia with residual right-sided weakness, history of transien t ischemic attacks, history of cognitive impairment and history of MRI brain in 05/2016 showing micro infarcts which are chronic in nature, likely from cerebral amyloid angiopathy, has history of atrial fibrillation but is not a candidate for Coumadin or any anticoagulation given his MRI brain showing c erebral amyloid angiopathy from the past. Therefore, he is likely to bleed if he is on Coumadin. We will just place him on aspirin. He had seizures secondary to his encephalomalacia in the left middl e cerebral artery territory, which is seen on his CAT scan. AT THIS TIME, RECOMMEND: To continue with Keppra 500 mg p.o. b.i.d. for stroke prevention, avoid ove r sedating medications or any opiates, which can lower the seizure threshold, seizure precautions int act. We will recommend him to be on aspirin and statin for stroke prevention; cannot start anticoagu lation due to patient's history of intracranial bleed in terms of micro bleeds from cerebral amyloid angiopathy. Recommend to be on aspirin 81 mg p.o. daily. He will need subacute rehab or at least so me home physical therapy and home health aide. At this time, continue with current present medical m anagement. No further neurological recommended at this time. We ____sign off. Travis Finney MD cc: [id number] TT: 07/10/2016 18:44:20 Confirmation # [id number] Dictation # [id number]
[2016-07-11] MEDS: Piperacillin/Tazobact 3.375 gm 100 ML IVPB SCH ×4 (01:17→17:50)
[2016-07-11] MEDS: Pantoprazole 40 mg EC Tab PO SCH (05:35)
[2016-07-11] MEDS: Multivitamin With Minerals Tab PO SCH (11:02)
[2016-07-11] MEDS: Verapamil 120 mg ER Tab PO SCH (11:03)
--- NOTE | 2016-07-11 14:10 | PN ---
DATE: 07/11/2016 The patient still has expressive aphasia. He denies chest pain. He wants to go home. PHYSICAL EXAMINATION: VITAL SIGNS: Blood pressure 148/92, heart rate 77, temperature 97.4, respirations 20. HEENT: Normocephalic. NECK: No JVD. CHEST: Clear. HEART: S1, S2 regular. EXTREMITIES: No edema. NEUROLOGIC: Right-sided weakness. EEG report is not available in the [employer] database. ASSESSMENT: 1. Hypertension. 2. History of left mid cerebral artery encephalomalacia with residual right-sided weakness. 3. History of transient ischemic attack. 4. Cognitive impairment, most likely related to cerebral amyloid angiopathy. 5. Atrial fibrillation. 6. Seizure disorder. RECOMMENDATIONS: The neurology assessment and plan were reviewed and I agree with continuing Keppra, aspirin and statin. Stay away from anticoagulation because of risk of intracranial bleed. Case was discussed with Dr. Eaton. Segun Vieyra MD cc: [id number] TT: 07/11/2016 14:09:17 Confirmation # [id number] Dictation # [id number] [email or web address]
--- NOTE | 2016-07-11 17:49 | CP.PCM.PN ---
<Bill Rebollar - Last Filed: 07/11/16 17:46> Subjective - Date & Time of Evaluation Date of Evaluation: 07/11/16 Time of Evaluation: 13:00 - Subjective Subjective: Medicine Progress note. Dr. Eaton Pt seen and examined at bedside. No acute events overnight. Still refuses blood draws and requesting to leave AMA. Denies any N/V/D. No Abd pain. No CP/SOB. No new complaints [facility] Request[facility] to come to the hospital in order to try and convince the patient to obtain bloodwork. Patient still refusing blood work after talking to [facility], however, cannot leave as Fanny did not bring the patient's house keys, clothes or belongings. Patient agreeable to leave tomorrow. Objective - Vital Signs/Intake and Output Vital Signs (last 24 hours): Temp Pulse Resp BP Pulse Ox 98.6 F 84 16 149/86 97 07/11/16 17:25 07/11/16 17:25 07/11/16 17:25 07/11/16 17:25 07/11/16 05:18 Intake and Output: 07/11/16 07/11/16 06:59 18:59 Intake Total 1280 Output Total 250 Balance 1030 - Medications Medications: Current Medications Aspirin (Ecotrin) 81 mg PO DAILY [facility] Last Admin: 07/11/16 11:01 Dose: 81 mg Atenolol (Tenormin) 50 mg PO DAILY [facility] Last Admin: 07/11/16 11:04 Dose: 50 mg Atorvastatin Calcium (Lipitor) 20 mg PO DIN [facility] Last Admin: 07/10/16 17:41 Dose: 20 mg Cyproheptadine HCl (Periactin) 4 mg PO HS [facility] Last Admin: 07/10/16 22:33 Dose: 4 mg Duloxetine HCl (Cymbalta) 30 mg PO DAILY [facility] Last Admin: 07/11/16 11:04 Dose: 30 mg Gabapentin (Neurontin) 800 mg PO TID [facility] Last Admin: 07/11/16 13:56 Dose: 800 mg Piperacillin Sod/Tazobactam Sod (Zosyn 3.375 In Ns 100ml) 100 mls @ 200 mls/hr IVPB Q6 [facility] PRN Reason: Protocol Last Admin: 07/11/16 13:07 Dose: 200 mls/hr Sodium Chloride (Sodium Chloride 0.9%) 1,000 mls @ 50 mls/hr IV .Q20H [facility] Last Admin: 07/10/16 17:42 Dose: 50 mls/hr Levetiracetam (Keppra) 500 mg PO BID [facility] Last Admin: 07/11/16 11:01 Dose: 500 mg Lisinopril (Zestril) 10 mg PO DAILY [facility] Last Admin: 07/11/16 11:01 Dose: 10 mg Multivitamins/Minerals (Therapeutic-M Tab) 1 tab PO DAILY [facility] Last Admin: 07/11/16 11:02 Dose: 1 tab Pantoprazole Sodium (Protonix Ec Tab) 40 mg PO 0630 [facility] Last Admin: 07/11/16 05:35 Dose: 40 mg Verapamil HCl (Calan Sr Tab) 120 mg PO DAILY [facility] Last Admin: 07/11/16 11:03 Dose: 120 mg - Labs Labs: 07/09/16 08:36 07/09/16 05:30 PT 12.1 Seconds (9.9-11.8) H 07/08/16 11:40 INR 1.12 (0.93-1.08) H 07/08/16 11:40 APTT 29.9 Seconds (23.7-30.8) 07/08/16 11:40 - Constitutional Appears: No Acute Distress, Chronically Ill - Head Exam Head Exam: ATRAUMATIC, NORMAL INSPECTION, NORMOCEPHALIC - Eye Exam Eye Exam: EOMI, Normal appearance, PERRL. absent: Scleral icterus - ENT Exam ENT Exam: Mucous Membranes Moist, Normal Exam - Respiratory Exam Respiratory Exam: Clear to Ausculation Bilateral. absent: Accessory Muscle Use , Rales, Rhonchi, Wheezes, Respiratory Distress - Cardiovascular Exam Cardiovascular Exam: RRR, +S1, +S2. absent: JVD - GI/Abdominal Exam GI & Abdominal Exam: Soft. absent: Distended, Guarding, Tenderness, Rebound - Extremities Exam Additional comments: right sided weakness. - Neurological Exam Neurological Exam: Alert, Awake, Oriented x3 Additional comments: Slurred but understandable speech. Responds appropriately. Alert and Oriented x3 - Psychiatric Exam Psychiatric exam: Normal Affect, Normal Mood - Skin Skin Exam: Dry, Intact, Normal Color, Warm Assessment and Plan - Assessment and Plan (Free Text) Assessment: 66M w/ hx of CVA and residual right sided weakness, HTN, depression, pneumonia, brought to the hospital via EMS after patient's auto parts professional noticed patient looked sick. Upon arrival to ED patient was experiencing tachyarrythmias . Patient also experienced seizure which was witnessed by the ED staff. Plan: Seizure -No seizures since admission -CT Head: left thalamus and left basal ganglia encephalomalacia. See report for full details -Ativan -Gabapentin -Keppra -Neuro checks -Fall precautions -Seizure precautions -Swallow evaluation done: recommends finely chopped consistency diet with thin liquids; aspiration precautions -F/u EEG results -Started on Lipitor 20mg. Will monitor LFTs. SIRS -Blood cultures; no growth -Urine cultures: no growth -Zosyn -ID consulted, recommendations appreciated -CXR: No acute findings. Atrial fibrillation/HTN -Improved w/ cardizem in ED -HASBLED score of 4 -Cardiology consulted, will not start anti-coagulation due to patient's history of intra-cranial bleed. Further recs appreciated -Aspirin changed from 325mg to 81mg due to risk of bleed, as per neuro recs -Atenolol -Verapamil DVT/GI ppx -SCDs -Protonix Dispo: Patient requesting to sign out AMA tomorrow. Continues to refuse further bloodwork. Discussed case with Dr. Angelito Rebollar PGY1 <Zelda Eaton - Last Filed: 07/11/16 18:15> Objective - Vital Signs/Intake and Output Vital Signs (last 24 hours): Temp Pulse Resp BP Pulse Ox 98.6 F 78 16 149/86 97 07/11/16 17:25 07/11/16 18:00 07/11/16 17:25 07/11/16 17:25 07/11/16 05:18 Intake and Output: 07/11/16 07/11/16 06:59 18:59 Intake Total 1280 Output Total 250 Balance 1030 - Medications Medications: Current Medications Aspirin (Ecotrin) 81 mg PO DAILY [facility] Last Admin: 07/11/16 11:01 Dose: 81 mg Atenolol (Tenormin) 50 mg PO DAILY [facility] Last Admin: 07/11/16 11:04 Dose: 50 mg Atorvastatin Calcium (Lipitor) 20 mg PO DIN [facility] Last Admin: 07/11/16 17:48 Dose: 20 mg Cyproheptadine HCl (Periactin) 4 mg PO HS [facility] Last Admin: 07/10/16 22:33 Dose: 4 mg Duloxetine HCl (Cymbalta) 30 mg PO DAILY [facility] Last Admin: 07/11/16 11:04 Dose: 30 mg Gabapentin (Neurontin) 800 mg PO TID [facility] Last Admin: 07/11/16 17:48 Dose: 800 mg Piperacillin Sod/Tazobactam Sod (Zosyn 3.375 In Ns 100ml) 100 mls @ 200 mls/hr IVPB Q6 [facility] PRN Reason: Protocol Last Admin: 07/11/16 17:50 Dose: 200 mls/hr Sodium Chloride (Sodium Chloride 0.9%) 1,000 mls @ 50 mls/hr IV .Q20H [facility] Last Admin: 07/11/16 17:56 Dose: 50 mls/hr Levetiracetam (Keppra) 500 mg PO BID [facility] Last Admin: 07/11/16 17:48 Dose: 500 mg Lisinopril (Zestril) 10 mg PO DAILY [facility] Last Admin: 07/11/16 11:01 Dose: 10 mg Multivitamins/Minerals (Therapeutic-M Tab) 1 tab PO DAILY [facility] Last Admin: 07/11/16 11:02 Dose: 1 tab Pantoprazole Sodium (Protonix Ec Tab) 40 mg PO 0630 [facility] Last Admin: 07/11/16 05:35 Dose: 40 mg Verapamil HCl (Calan Sr Tab) 120 mg PO DAILY [facility] Last Admin: 07/11/16 11:03 Dose: 120 mg - Labs Labs: 07/09/16 08:36 07/09/16 05:30 PT 12.1 Seconds (9.9-11.8) H 07/08/16 11:40 INR 1.12 (0.93-1.08) H 07/08/16 11:40 APTT 29.9 Seconds (23.7-30.8) 07/08/16 11:40 Attending/Attestation - Attestation I have personally seen and examined this patient.: Yes I have fully participated in the care of the patient.: Yes I have reviewed all pertinent clinical information, including history, physical exam and plan: Yes Notes (Text): 07/11/16 18:11 66 year old male with past medical history of CVA with residual right sided weakness, hypertension, depression, pneumonia and tachyarrthmias/SVT who was brought in by GRAPHICS MANAGER for complaint of not feeling well and feeling weak. While in ER he had witnessed episode of seizure as well as afib/aflutter which improved with cardizem. CT head showed chronic left thalamus and left basal ganglia encephalomalacia. He is being followed by cardiology and neurology. He had EEG done yesterday which was reviewed by neurology. He is on keppra. He is also on aspirin and statin. He is not on anticoagulation due to high HASBLED score. He is on atenolol and verapramil. He continues to have episodes of tachycardia on the monitor occasionally at night. However he refused labs again this morning but now is apparently agreeable. He also had +SIRS with elevated lactate level and tachycardia. He is on zosyn while awaiting cultures. Ua/CXR were negative. ID is following. Consider d/c antibiotics as workup has been negative. PT evaluation was appreciated. I also spoke with casework supervisor yesterday regarding possible d/c planning over weekend. Patient is going back and forth about drawing labs, going home or signing out AMA. We did call his auto parts professional who came by this evening but states she cannot take him home because she didn't bring her keys or make arrangements. She will come tomorrow. Zelda Eaton MD Hospitalist.
[2016-07-11] MEDS: Sodium Chloride 0.9% 1,000 ML IV SCH (17:56)
--- NOTE | 2016-07-11 18:21 | CP.PCM.PN ---
Subjective - Date & Time of Evaluation Date of Evaluation: 07/11/16 Time of Evaluation: 16:30 - Subjective Subjective: Infectious Disease Follow Up: July 11, 2016 66 yo male with presentation to the hospital as patient's caregiver felt the patient appeared ill. The patient's dean of boys state that the patient has been appearing increasingly ill over the past two weeks with worsening appetite. In ER, the patient was found to have atrial fibrillation. Multiple hospitalizations in the past 3 months. Patient himself denies symptoms but he has no idea how he got to [facility] this time. The patient is insistent that he is discharged home when it is time to leave the hospital. Remains on Zosyn. Cultures to date remain negative. He has refused blood work the last two days. He will not talk about anything else other than discharge from the hospital. Objective - Vital Signs/Intake and Output Vital Signs (last 24 hours): Temp Pulse Resp BP Pulse Ox 98.6 F 78 16 149/86 97 07/11/16 17:25 07/11/16 18:00 07/11/16 17:25 07/11/16 17:25 07/11/16 05:18 Intake and Output: 07/11/16 07/11/16 06:59 18:59 Intake Total 1280 Output Total 250 Balance 1030 - Medications Medications: Current Medications Aspirin (Ecotrin) 81 mg PO DAILY [facility] Last Admin: 07/11/16 11:01 Dose: 81 mg Atenolol (Tenormin) 50 mg PO DAILY [facility] Last Admin: 07/11/16 11:04 Dose: 50 mg Atorvastatin Calcium (Lipitor) 20 mg PO DIN [facility] Last Admin: 07/11/16 17:48 Dose: 20 mg Cyproheptadine HCl (Periactin) 4 mg PO HS [facility] Last Admin: 07/10/16 22:33 Dose: 4 mg Duloxetine HCl (Cymbalta) 30 mg PO DAILY [facility] Last Admin: 07/11/16 11:04 Dose: 30 mg Gabapentin (Neurontin) 800 mg PO TID [facility] Last Admin: 07/11/16 17:48 Dose: 800 mg Piperacillin Sod/Tazobactam Sod (Zosyn 3.375 In Ns 100ml) 100 mls @ 200 mls/hr IVPB Q6 [facility] PRN Reason: Protocol Last Admin: 07/11/16 17:50 Dose: 200 mls/hr Sodium Chloride (Sodium Chloride 0.9%) 1,000 mls @ 50 mls/hr IV .Q20H [facility] Last Admin: 07/11/16 17:56 Dose: 50 mls/hr Levetiracetam (Keppra) 500 mg PO BID [facility] Last Admin: 07/11/16 17:48 Dose: 500 mg Lisinopril (Zestril) 10 mg PO DAILY [facility] Last Admin: 07/11/16 11:01 Dose: 10 mg Multivitamins/Minerals (Therapeutic-M Tab) 1 tab PO DAILY [facility] Last Admin: 07/11/16 11:02 Dose: 1 tab Pantoprazole Sodium (Protonix Ec Tab) 40 mg PO 0630 [facility] Last Admin: 07/11/16 05:35 Dose: 40 mg Verapamil HCl (Calan Sr Tab) 120 mg PO DAILY [facility] Last Admin: 07/11/16 11:03 Dose: 120 mg - Labs Labs: 07/09/16 08:36 07/09/16 05:30 PT 12.1 Seconds (9.9-11.8) H 07/08/16 11:40 INR 1.12 (0.93-1.08) H 07/08/16 11:40 APTT 29.9 Seconds (23.7-30.8) 07/08/16 11:40 - Constitutional Appears: Non-toxic, No Acute Distress, Chronically Ill - Head Exam Head Exam: ATRAUMATIC, NORMOCEPHALIC - Eye Exam Eye Exam: EOMI, PERRL Pupil Exam: NORMAL ACCOMODATION, PERRL - ENT Exam ENT Exam: Mucous Membranes Moist, Normal External Ear Exam, TM's Normal Bilaterally - Neck Exam Neck Exam: Full ROM, Normal Inspection - Respiratory Exam Respiratory Exam: Clear to Ausculation Bilateral, NORMAL BREATHING PATTERN. absent: Rales, Rhonchi, Wheezes - Cardiovascular Exam Cardiovascular Exam: REGULAR RHYTHM, RRR, +S1, +S2 - GI/Abdominal Exam GI & Abdominal Exam: Soft, Normal Bowel Sounds. absent: Distended, Tenderness - Extremities Exam Additional comments: general weakness. - Neurological Exam Neurological Exam: Alert, Awake, CN II-XII Intact Additional comments: AAO x 2 -3. Right sided weakness. generalized weakness, bedbound. - Psychiatric Exam Psychiatric exam: Normal Affect, Normal Mood - Skin Skin Exam: Intact, Normal Color Assessment and Plan - Assessment and Plan (Free Text) Assessment: 65 yo AA male returning to [facility] again for symptoms of weakness, general ill appearance, and poor appetitie. The patient denies symptoms but doesn't know how he got to [facility]. The patient has no fevers or leukocytosis at this time. Chest X-ray clean. The patient's CT of the head shows left thalamus and left basal ganglia encephalomalacia and other nonspecific changes. No further seizure episodes. On Zosyn currently. Wells cultures sent. Monitor fever trend, WBC trend. Supportive care. Patient has refused blood work for the past 48 hours. Cultures negative so far. Discussed with Dr. Eaton. Thank you for allowing me to participate in the care of the patient, we will follow with you.
[2016-07-11 18:47] LABS: BLOOD UREA NITROGEN 12 mg/dL (7-21); CALCIUM 9.1 mg/dL (8.4-10.5); CARBON DIOXIDE 29 mmol/L (21-33); CHLORIDE 105 mmol/L (98-107); GFR AFRICAN-AMERICAN > 60; GLUCOSE,RANDOM 124 mg/dL (70-110); MAGNESIUM 1.7 mg/dL (1.7-2.2); POTASSIUM 3.5 mmol/L (3.6-5.0); SODIUM 140 mmol/L (132-148)
[2016-07-11] MEDS ORDERED: Magnesium Sulfate 2 GM in Sodium Chloride 0.9% 100 ML IVPB ONE (21:21)
[2016-07-12] MEDS: Piperacillin/Tazobact 3.375 gm 100 ML IVPB SCH ×3 (00:48→12:09)
[2016-07-12] MEDS: Pantoprazole 40 mg EC Tab PO SCH (05:32)
[2016-07-12 06:45] VITALS: O2SAT 96
[2016-07-12] MEDS: Verapamil 120 mg ER Tab PO SCH (10:03)
[2016-07-12] MEDS: Multivitamin With Minerals Tab PO SCH (10:04)
[2016-07-12 11:26] VITALS: BP 155/95; PULSE 73; RESP 16; TEMP 99
--- NOTE | 2016-07-12 12:09 | CP.PCM.DIS ---
<Sindy Hughes - Last Filed: 07/12/16 12:34> Provider - Provider Date of Admission: 07/08/16 13:39 Attending physician: Zelda Eaton MD Primary care physician: Shawn Weaver MD Consults: Drs. Wilman Akbar, Azalia Finney Time Spent in preparation of Discharge (in minutes): 38 Hospital Course - Lab Results Lab Results: Most Recent Lab Values WBC 7.4 10^3/ul (4.5-11.0) 07/09/16 08:36 RBC 4.50 10^6/uL (3.5-6.1) 07/09/16 08:36 Hgb 11.6 gm/dL (14.0-18.0) L 07/09/16 08:36 Hct 35.5 % (42.0-52.0) L 07/09/16 08:36 MCV 78.9 fL (80.0-105.0) L 07/09/16 08:36 MCH 25.8 pg (25.0-35.0) 07/09/16 08:36 MCHC 32.7 g/dl (31.0-37.0) 07/09/16 08:36 RDW 18.3 % (11.5-14.5) H 07/09/16 08:36 Plt Count 309 10^3/uL (120.0-450.0) 07/09/16 08:36 MPV 10.2 fl (7.0-11.0) 07/09/16 08:36 Gran % 64.3 % (50.0-68.0) 07/09/16 08:36 Lymph % (Auto) 23.0 % (22.0-35.0) 07/09/16 08:36 [place] % (Auto) 10.8 % (1.0-6.0) H 07/09/16 08:36 Eos % (Auto) 1.4 % (1.5-5.0) L 07/09/16 08:36 Baso % (Auto) 0.5 % (0.0-3.0) 07/09/16 08:36 Gran # 4.74 (1.4-6.5) 07/09/16 08:36 Lymph # 1.7 (1.2-3.4) 07/09/16 08:36 [place] # 0.8 (0.1-0.6) H 07/09/16 08:36 Eos # 0.1 (0.0-0.7) 07/09/16 08:36 Baso # 0.04 K/mm3 (0.0-2.0) 07/09/16 08:36 ESR 51 mm/hr (0.00-15.0) H 07/08/16 11:40 PT 12.1 Seconds (9.9-11.8) H 07/08/16 11:40 INR 1.12 (0.93-1.08) H 07/08/16 11:40 APTT 29.9 Seconds (23.7-30.8) 07/08/16 11:40 pO2 35 mm/Hg (30-55) 07/08/16 16:15 VBG pH 7.32 (7.32-7.43) 07/08/16 16:15 VBG pCO2 65.0 (40-60) H 07/08/16 16:15 VBG HCO3 35.0 mmol/l (21-28) H 07/08/16 16:15 VBG Total CO2 37.1 mmol.L (22-28) H 07/08/16 16:15 VBG O2 Sat (Calc) 64.9 % (40-65) 07/08/16 16:15 VBG Base Excess 6.5 mmol/L (0.0-2.0) H 07/08/16 16:15 VBG Potassium 4.1 mmol/L (3.6-5.2) 07/08/16 16:15 Sodium 141.0 mmol/L (132-148) 07/08/16 16:15 Chloride 105.0 mmol/L (98-107) 07/08/16 16:15 Glucose 95 mg/dl (75-110) 07/08/16 16:15 Lactate 2.2 mmol/L (0.7-2.1) H 07/08/16 16:15 FiO2 21.0 % 07/08/16 16:15 Sodium 140 mmol/L (132-148) 07/11/16 18:15 Potassium 3.5 mmol/L (3.6-5.0) L 07/11/16 18:15 Chloride 105 mmol/L (98-107) 07/11/16 18:15 Carbon Dioxide 29 mmol/L (21-33) 07/11/16 18:15 Anion Gap 10 (10-20) 07/11/16 18:15 BUN 12 mg/dL (7-21) 07/11/16 18:15 Creatinine 1.1 mg/dL (0.5-1.4) 07/11/16 18:15 Est GFR ( Amer) > 60 07/11/16 18:15 Est GFR (Non-Af Amer) > 60 07/11/16 18:15 Random Glucose 124 mg/dL (70-110) H 07/11/16 18:15 Calcium 9.1 mg/dL (8.4-10.5) 07/11/16 18:15 Phosphorus 3.7 mg/dL (2.5-4.5) 07/08/16 11:40 Magnesium 1.7 mg/dL (1.7-2.2) 07/11/16 18:15 Total Bilirubin 1.1 mg/dL (0.2-1.3) 07/09/16 05:30 AST 64 U/L (15-59) H 07/09/16 05:30 ALT 52 U/L (7-56) 07/09/16 05:30 Alkaline Phosphatase 97 U/L (38-133) 07/09/16 05:30 Lactate Dehydrogenase 339 U/L (333-699) 07/08/16 11:40 Total Creatine Kinase 41 U/L (35-230) 07/08/16 11:40 Troponin I < 0.01 ng/mL D 07/08/16 11:40 C-React Prot High Sens > 15.00 mg/L (1.00-3.00) H 07/08/16 11:40 NT-Pro-B Natriuret Pep 2330 pg/mL (0-450) H 07/08/16 11:40 Total Protein 7.6 g/dL (5.8-8.3) 07/09/16 05:30 Albumin 3.3 g/dL (3.0-4.8) 07/09/16 05:30 Globulin 4.3 gm/dL 07/09/16 05:30 Albumin/Globulin Ratio 0.8 (1.1-1.8) L 07/09/16 05:30 Triglycerides 103 mg/dL (35-160) 07/09/16 05:30 Cholesterol 134 mg/dL (130-200) 07/09/16 05:30 LDL Cholesterol Direct 84 mg/dL (0-129) 07/09/16 05:30 HDL Cholesterol 29 mg/dL (29-60) 07/09/16 05:30 Lipase 65 U/L (23-300) 07/08/16 11:40 Procalcitonin 0.19 NG/ML (0.19-0.49) 07/08/16 11:40 Venous Blood Potassium 4.1 mmol/L (3.6-5.2) 07/08/16 16:15 Urine Color Yellow (YELLOW) 07/08/16 07:00 Urine Appearance Clear (CLEAR) 07/08/16 07:00 Urine pH 6.0 (4.7-8.0) 07/08/16 07:00 Ur Specific Garrett 1.025 (1.005-1.035) 07/08/16 07:00 Urine Protein 30 mg/dL (<30 mg/dL) H 07/08/16 07:00 Urine Glucose (UA) Negative mg/dL (NEGATIVE) 07/08/16 07:00 Urine Ketones Negative mg/dL (NEGATIVE) 07/08/16 07:00 Urine Blood Negative (NEGATIVE) 07/08/16 07:00 Urine Nitrate Negative (NEGATIVE) 07/08/16 07:00 Urine Bilirubin Negative (NEGATIVE) 07/08/16 07:00 Urine Urobilinogen 0.2 E.U./dL (<1 E.U./dL) 07/08/16 07:00 Ur Leukocyte Esterase Negative Dwayne/uL (NEGATIVE) 07/08/16 07:00 Urine RBC Negative /hpf (0-2) 07/08/16 07:00 Urine WBC 0 - 2 /hpf (0-6) 07/08/16 07:00 Urine Bacteria Small (NEG) 07/08/16 07:00 - Hospital Course Hospital Course: 66M w/ PMHx of CVA w/ residual R sided weakness, HTN, depression, pneumonia was brought to the ED by ambulance. According to ED nurse patient's machine long goods helper stated that patient appeared weak and she noticed patient has had a decreased appetite for the past two weeks. On arrival to ED patient was found to be in atrial flutter/atrial fibrillation, pt had seziure, witnessed by ED staff. Upon interviewing patient, he was alert. However, patient could not state the reasons as to why he was brought to the hospital. Patient stated he was feeling okay and denied having any dizzines/headaches/vision changes. Patient also denied having any pain. Patient has no recollection of events that led him to being in the hospital. Patient's last hospitalization was in June [address] head showed chronic left thalamus and left basal ganglia encephalomalacia. Telemetry admission for seizure and rapid atrial atrial fibrillation: Rapid atrial fibrillation resolved with cardizem. Pt also administered ASA, statin, atenolol and verapamil. Not on anticoagulation due to high HASBLED score. For seizure, placed on keppra, and EEG conducted. Occasional episodes of tachycardia at night but pt refuses labs. No seizure after admission and no tachycardia episodes in past 24 hours. Pt d/c home in stable condition with following instructions: You are discharged home where you have a home health aide. Please see your primary care physician within a week. Please stop taking your Aspirin 324 mg daily prescription and take the new aspirin prescription of 81 mg by mouth daily. Otherwise continue all your other home medications. Please take the new medications of Lipitor 20 mg by mouth at dinner daily and Keppra 500mg by mouth twice daily. Please return to emergency department for worsening of symptoms. Discharge Exam - Head Exam Head Exam: ATRAUMATIC, NORMOCEPHALIC - Eye Exam Eye Exam: EOMI, Normal appearance - Respiratory Exam Respiratory Exam: NORMAL BREATHING PATTERN, UNREMARKABLE - Cardiovascular Exam Cardiovascular Exam: +S1, +S2. absent: Bradycardia - GI/Abdominal Exam GI & Abdominal Exam: Soft. absent: Tenderness - Exam External exam: absent: Ecchymosis, Erythema - Extremities Exam Extremities exam: normal capillary refill, pedal pulses present - Back Exam Back exam: absent: CVA tenderness (L), CVA tenderness (R) - Neurological Exam Neurological exam: Alert, Oriented x3 - Skin Skin Exam: Intact, Normal Color Discharge Plan - Discharge Medications Prescriptions: RX: Aspirin [Ecotrin] 81 mg PO DAILY #14 tab.ec RX: Atorvastatin [Lipitor] 20 mg PO DIN #14 tab RX: levETIRAcetam [Keppra] 500 mg PO BID #28 tab - Follow Up Plan Condition: STABLE Disposition: HOME/ ROUTINE Instructions: Atrial Fibrillation (DC), Recurrent Seizures in Adults (GEN) Additional Instructions: You are discharged home where you have a home health aide. Please see your primary care physician within a week. Please stop taking your Aspirin 324 mg daily prescription and take the new aspirin prescription of 81 mg by mouth daily. Otherwise continue all your other home medications. Please take the new medications of Lipitor 20 mg by mouth at dinner daily and Keppra 500mg by mouth twice daily. Please return to emergency department for worsening of symptoms. Referrals: Shawn Weaver MD [Primary Care Provider] - <Zelda Eaton - Last Filed: 07/12/16 13:53> Provider - Provider Date of Admission: 07/08/16 13:39 Attending physician: Zelda Eaton MD Primary care physician: Shawn Weaver MD Hospital Course - Lab Results Lab Results: Most Recent Lab Values WBC 7.4 10^3/ul (4.5-11.0) 07/09/16 08:36 RBC 4.50 10^6/uL (3.5-6.1) 07/09/16 08:36 Hgb 11.6 gm/dL (14.0-18.0) L 07/09/16 08:36 Hct 35.5 % (42.0-52.0) L 07/09/16 08:36 MCV 78.9 fL (80.0-105.0) L 07/09/16 08:36 MCH 25.8 pg (25.0-35.0) 07/09/16 08:36 MCHC 32.7 g/dl (31.0-37.0) 07/09/16 08:36 RDW 18.3 % (11.5-14.5) H 07/09/16 08:36 Plt Count 309 10^3/uL (120.0-450.0) 07/09/16 08:36 MPV 10.2 fl (7.0-11.0) 07/09/16 08:36 Gran % 64.3 % (50.0-68.0) 07/09/16 08:36 Lymph % (Auto) 23.0 % (22.0-35.0) 07/09/16 08:36 [place] % (Auto) 10.8 % (1.0-6.0) H 07/09/16 08:36 Eos % (Auto) 1.4 % (1.5-5.0) L 07/09/16 08:36 Baso % (Auto) 0.5 % (0.0-3.0) 07/09/16 08:36 Gran # 4.74 (1.4-6.5) 07/09/16 08:36 Lymph # 1.7 (1.2-3.4) 07/09/16 08:36 [place] # 0.8 (0.1-0.6) H 07/09/16 08:36 Eos # 0.1 (0.0-0.7) 07/09/16 08:36 Baso # 0.04 K/mm3 (0.0-2.0) 07/09/16 08:36 ESR 51 mm/hr (0.00-15.0) H 07/08/16 11:40 PT 12.1 Seconds (9.9-11.8) H 07/08/16 11:40 INR 1.12 (0.93-1.08) H 07/08/16 11:40 APTT 29.9 Seconds (23.7-30.8) 07/08/16 11:40 pO2 35 mm/Hg (30-55) 07/08/16 16:15 VBG pH 7.32 (7.32-7.43) 07/08/16 16:15 VBG pCO2 65.0 (40-60) H 07/08/16 16:15 VBG HCO3 35.0 mmol/l (21-28) H 07/08/16 16:15 VBG Total CO2 37.1 mmol.L (22-28) H 07/08/16 16:15 VBG O2 Sat (Calc) 64.9 % (40-65) 07/08/16 16:15 VBG Base Excess 6.5 mmol/L (0.0-2.0) H 07/08/16 16:15 VBG Potassium 4.1 mmol/L (3.6-5.2) 07/08/16 16:15 Sodium 141.0 mmol/L (132-148) 07/08/16 16:15 Chloride 105.0 mmol/L (98-107) 07/08/16 16:15 Glucose 95 mg/dl (75-110) 07/08/16 16:15 Lactate 2.2 mmol/L (0.7-2.1) H 07/08/16 16:15 FiO2 21.0 % 07/08/16 16:15 Sodium 140 mmol/L (132-148) 07/11/16 18:15 Potassium 3.5 mmol/L (3.6-5.0) L 07/11/16 18:15 Chloride 105 mmol/L (98-107) 07/11/16 18:15 Carbon Dioxide 29 mmol/L (21-33) 07/11/16 18:15 Anion Gap 10 (10-20) 07/11/16 18:15 BUN 12 mg/dL (7-21) 07/11/16 18:15 Creatinine 1.1 mg/dL (0.5-1.4) 07/11/16 18:15 Est GFR ( Amer) > 60 07/11/16 18:15 Est GFR (Non-Af Amer) > 60 07/11/16 18:15 Random Glucose 124 mg/dL (70-110) H 07/11/16 18:15 Calcium 9.1 mg/dL (8.4-10.5) 07/11/16 18:15 Phosphorus 3.7 mg/dL (2.5-4.5) 07/08/16 11:40 Magnesium 1.7 mg/dL (1.7-2.2) 07/11/16 18:15 Total Bilirubin 1.1 mg/dL (0.2-1.3) 07/09/16 05:30 AST 64 U/L (15-59) H 07/09/16 05:30 ALT 52 U/L (7-56) 07/09/16 05:30 Alkaline Phosphatase 97 U/L (38-133) 07/09/16 05:30 Lactate Dehydrogenase 339 U/L (333-699) 07/08/16 11:40 Total Creatine Kinase 41 U/L (35-230) 07/08/16 11:40 Troponin I < 0.01 ng/mL D 07/08/16 11:40 C-React Prot High Sens > 15.00 mg/L (1.00-3.00) H 07/08/16 11:40 NT-Pro-B Natriuret Pep 2330 pg/mL (0-450) H 07/08/16 11:40 Total Protein 7.6 g/dL (5.8-8.3) 07/09/16 05:30 Albumin 3.3 g/dL (3.0-4.8) 07/09/16 05:30 Globulin 4.3 gm/dL 07/09/16 05:30 Albumin/Globulin Ratio 0.8 (1.1-1.8) L 07/09/16 05:30 Triglycerides 103 mg/dL (35-160) 07/09/16 05:30 Cholesterol 134 mg/dL (130-200) 07/09/16 05:30 LDL Cholesterol Direct 84 mg/dL (0-129) 07/09/16 05:30 HDL Cholesterol 29 mg/dL (29-60) 07/09/16 05:30 Lipase 65 U/L (23-300) 07/08/16 11:40 Procalcitonin 0.19 NG/ML (0.19-0.49) 07/08/16 11:40 Venous Blood Potassium 4.1 mmol/L (3.6-5.2) 07/08/16 16:15 Urine Color Yellow (YELLOW) 07/08/16 07:00 Urine Appearance Clear (CLEAR) 07/08/16 07:00 Urine pH 6.0 (4.7-8.0) 07/08/16 07:00 Ur Specific [place] 1.025 (1.005-1.035) 07/08/16 07:00 Urine Protein 30 mg/dL (<30 mg/dL) H 07/08/16 07:00 Urine Glucose (UA) Negative mg/dL (NEGATIVE) 07/08/16 07:00 Urine Ketones Negative mg/dL (NEGATIVE) 07/08/16 07:00 Urine Blood Negative (NEGATIVE) 07/08/16 07:00 Urine Nitrate Negative (NEGATIVE) 07/08/16 07:00 Urine Bilirubin Negative (NEGATIVE) 07/08/16 07:00 Urine Urobilinogen 0.2 E.U./dL (<1 E.U./dL) 07/08/16 07:00 Ur Leukocyte Esterase Negative Dwayne/uL (NEGATIVE) 07/08/16 07:00 Urine RBC Negative /hpf (0-2) 07/08/16 07:00 Urine WBC 0 - 2 /hpf (0-6) 07/08/16 07:00 Urine Bacteria Small (NEG) 07/08/16 07:00 Attending/Attestation - Attestation I have personally seen and examined this patient.: Yes I have fully participated in the care of the patient.: Yes I have reviewed all pertinent clinical information, including history, physical exam and plan: Yes Notes (Text): 07/12/16 13:48 66 year old male with past medical history of CVA with residual right sided weakness, hypertension, depression, pneumonia and tachyarrythmias/SVT who was brought in by [facility] for complaint of not feeling well and feeling weak. While in ER he had witnessed episode of seizure as well as afib/aflutter which improved with cardizem. CT head showed chronic left thalamus and left basal ganglia encephalomalacia. He was seen by followed by cardiology and neurology. He had EEG done during the week which was reviewed by neurology. He was started on keppra. He is also on aspirin and statin. He is not on anticoagulation due to high HASBLED score. His aspirin was reduced from 325 to 81 mg and his pletal was discontinued. He is on atenolol and verapramil. He was started on antibiotics for SIRS with elevated lactate. However cultures were negative and antibiotics can be discontinued as per ID. Patient was seen by PT who cleared for d/c home where he has established services with [facility]. I spoke with his machine long goods helper yesterday who stated she will be able to make arrangements for d/c today and pick him up. Patient is discharged home today. Follow up with pmd. Zelda Eaton MD Hospitalist.
--- NOTE | 2016-07-12 17:00 | CP.PCM.PN ---
Subjective - Date & Time of Evaluation Date of Evaluation: 07/12/16 Time of Evaluation: 14:30 - Subjective Subjective: Infectious Disease Follow Up: July 12, 2016 66 yo male with presentation to the hospital as patient's caregiver felt the patient appeared ill. The patient's control and recovery special tactics state that the patient has been appearing increasingly ill over the past two weeks with worsening appetite. In ER, the patient was found to have atrial fibrillation. Multiple hospitalizations in the past 3 months. Patient himself denies symptoms but he has no idea how he got to [facility] this time. The patient is insistent that he is discharged home when it is time to leave the hospital. Remains on Zosyn. Cultures to date remain negative. He has refused blood work the last three days. He will not talk about anything else other than discharge from the hospital and going as far as to threaten leaving AMA. Objective - Vital Signs/Intake and Output Vital Signs (last 24 hours): Temp Pulse Resp BP Pulse Ox 99 F 73 16 155/95 H 96 07/12/16 11:25 07/12/16 11:25 07/12/16 11:25 07/12/16 11:25 07/12/16 06:00 Intake and Output: 07/12/16 07/12/16 06:59 18:59 Intake Total 180 600 Output Total 980 700 Balance -800 -100 - Medications Medications: Current Medications Aspirin (Ecotrin) 81 mg PO DAILY [facility] Last Admin: 07/12/16 10:03 Dose: 81 mg Atenolol (Tenormin) 50 mg PO DAILY [facility] Last Admin: 07/12/16 10:04 Dose: 50 mg Atorvastatin Calcium (Lipitor) 20 mg PO DIN [facility] Last Admin: 07/11/16 17:48 Dose: 20 mg Cyproheptadine HCl (Periactin) 4 mg PO HS [facility] Last Admin: 07/11/16 21:22 Dose: 4 mg Duloxetine HCl (Cymbalta) 30 mg PO DAILY [facility] Last Admin: 07/12/16 10:03 Dose: 30 mg Gabapentin (Neurontin) 800 mg PO TID [facility] Last Admin: 07/12/16 15:01 Dose: Not Given Piperacillin Sod/Tazobactam Sod (Zosyn 3.375 In Ns 100ml) 100 mls @ 200 mls/hr IVPB Q6 [facility] PRN Reason: Protocol Last Admin: 07/12/16 12:09 Dose: 200 mls/hr Sodium Chloride (Sodium Chloride 0.9%) 1,000 mls @ 50 mls/hr IV .Q20H [facility] Last Admin: 07/11/16 17:56 Dose: 50 mls/hr Levetiracetam (Keppra) 500 mg PO BID [facility] Last Admin: 07/12/16 10:04 Dose: 500 mg Lisinopril (Zestril) 10 mg PO DAILY [facility] Last Admin: 07/12/16 10:05 Dose: 10 mg Multivitamins/Minerals (Therapeutic-M Tab) 1 tab PO DAILY [facility] Last Admin: 07/12/16 10:04 Dose: 1 tab Pantoprazole Sodium (Protonix Ec Tab) 40 mg PO 0630 [facility] Last Admin: 07/12/16 05:32 Dose: 40 mg Verapamil HCl (Calan Sr Tab) 120 mg PO DAILY [facility] Last Admin: 07/12/16 10:03 Dose: 120 mg - Labs Labs: 07/09/16 08:36 07/11/16 18:15 PT 12.1 Seconds (9.9-11.8) H 07/08/16 11:40 INR 1.12 (0.93-1.08) H 07/08/16 11:40 APTT 29.9 Seconds (23.7-30.8) 07/08/16 11:40 - Constitutional Appears: Non-toxic, No Acute Distress, Chronically Ill - Head Exam Head Exam: ATRAUMATIC, NORMOCEPHALIC - Eye Exam Eye Exam: EOMI, PERRL Pupil Exam: NORMAL ACCOMODATION, PERRL - ENT Exam ENT Exam: Mucous Membranes Moist, Normal External Ear Exam, TM's Normal Bilaterally - Neck Exam Neck Exam: Full ROM, Normal Inspection - Respiratory Exam Respiratory Exam: Clear to Ausculation Bilateral, NORMAL BREATHING PATTERN. absent: Rales, Rhonchi, Wheezes - Cardiovascular Exam Cardiovascular Exam: REGULAR RHYTHM, RRR, +S1, +S2 - GI/Abdominal Exam GI & Abdominal Exam: Soft, Normal Bowel Sounds. absent: Distended, Tenderness - Extremities Exam Additional comments: general weakness - Neurological Exam Neurological Exam: Alert, Awake, CN II-XII Intact Additional comments: AAO x 2 -3. Right sided weakness. generalized weakness, bedbound. - Psychiatric Exam Psychiatric exam: Normal Affect, Normal Mood - Skin Skin Exam: Intact, Normal Color Assessment and Plan - Assessment and Plan (Free Text) Assessment: 65 yo AA male returning to [facility] again for symptoms of weakness, general ill appearance, and poor appetitie. The patient denies symptoms but doesn't know how he got to [facility]. The patient has no fevers or leukocytosis at this time. Chest X-ray clean. The patient's CT of the head shows left thalamus and left basal ganglia encephalomalacia and other nonspecific changes. No further seizure episodes. On Zosyn currently. Wells cultures sent. Monitor fever trend, WBC trend. Supportive care. Patient has refused blood work for the past 72 hours. Cultures negative so far. He appears to be at his baseline mental level. Discussed with Dr. Eaton. Thank you for allowing me to participate in the care of the patient, we will follow with you.
--- NOTE | 2016-07-14 08:12 | EEG ---
DATE: 07/10/2016 The patient is a 66-year-old male with a history of seizure. MEDICATIONS: Keppra, Zestril, Protonix and Cymbalta. PAST MEDICAL HISTORY: Of right CVA. DESCRIPTION: Background activity of this tracing was composed of 7-8 cycles per second alpha-like ac tivity, a small amount of beta activity 16-20 cycles per second was noted in the tracing. Theta acti vity 5-7 cycles per second was noted in the tracing. Drowsiness was composed of mixed beta and theta activity. Photic stimulation did not change the record. No paroxysmal activity was seen in the rec ord. IMPRESSION: Bilateral cerebral dysfunction, diffuse. Bennett Finney MD cc: [id number] TT: 07/10/2016 21:51:28 Confirmation # [id number] Dictation # [id number]
== END 2016-07-12 18:36 | disposition home or self-care (01) ==
LOC: ED 10:32 → INTOOBSV 13:39 → ERH 13:39 → 2RSO 22:09
PROVIDERS: ADMIT Hospitalist; ATTEND Internal Medicine
DX: I48.92 Unspecified atrial flutter (principal); R65.10 Systemic inflammatory response syndrome (SIRS) of non-infectious origin without acute organ dysfunction; I48.91 Unspecified atrial fibrillation; G40.909 Epilepsy, unspecified, not intractable, without status epilepticus; G93.89 Other specified disorders of brain; I68.0 Cerebral amyloid angiopathy; I10 Essential (primary) hypertension; F32.9 Major depressive disorder, single episode, unspecified; I44.4 Left anterior fascicular block; F01.50 Vascular dementia, unspecified severity, without behavioral disturbance, psychotic disturbance, mood disturbance, and anxiety; Z74.01 Bed confinement status; I69.351 Hemiplegia and hemiparesis following cerebral infarction affecting right dominant side; Z87.01 Personal history of pneumonia (recurrent)
CPT/HCPCS: 36415; 70450; 71010; 80048; 80053; 80061; 81001; 82550; 82803; 83615; 83690; 83735; 83880; 84100; 84145; 84484; 85025; 85610; 85651; 85730; 86140; 87040; 87086; 92526; 92610; 93005; 95812; 96361; 96365; 96375; 97162; 99285; G0378; G8978; G8979; G8980; G8996; G8997; J2060; J2543; J3475; J3480; J7040

== ENCOUNTER 2016-07-12 19:50 | Emergency (ER) | payer OTHER ==
[2016-07-12 19:51] VITALS: PULSE 104; BMI 16.7
[2016-07-12 20:35] VITALS: TEMP 97.4
--- NOTE | 2016-07-12 20:38 | ED PDOC ---
Arrival/HPI - General Chief Complaint: Medical Clearance Time Seen by Provider: 07/12/16 20:16 Historian: Patient - History of Present Illness Narrative History of Present Illness (Text): 07/12/16 20:00 Dario Escamilla is a 66 year old male, whose past medical history includes hypertension and CVA with residual right sided weakness, who presents to the Emergency department brought in by EMS because there was no motion picture projectionist apprentice present at home to receive the patient after he was discharged home from the hospital today. Patient states he feels fine currently. Patient denies any fever, chills , chest pain, shortness of breath, nausea, vomiting, diarrhea, urinary symptoms , back pain, neck pain, headache, dizziness, or any other complaints. Time/Duration: Other (today) Symptom Course: Unchanged Activities at Onset: Light Context: Home Past Medical History - Provider Review Nursing Documentation Reviewed: Yes - Infectious Disease Hx of Infectious Diseases: None - Tetanus Immunization Tetanus Immunization: Unknown - Cardiac Hx Cardiac Disorders: Yes (mi) Hx Hypertension: Yes - Pulmonary Hx Pneumonia: Yes - Neurological HX Cerebrovascular Accident: Yes (R sided weakness, dysarthria) - HEENT Hx HEENT Disorder: Yes (impairred speech) - Renal Hx Renal Disorder: No - Endocrine/Metabolic Hx Endocrine Disorders: No - Hematological/Oncological Hx Blood Disorders: No - Integumentary Other/Comment: healed sacral wound, mult discolorations ble - Musculoskeletal/Rheumatological Hx Falls: Yes - Gastrointestinal Hx Gastrointestinal Disorders: No - Genitourinary/Gynecological Hx Genitourinary Disorders: No - Psychiatric Hx Psychophysiologic Disorder: Yes Hx Depression: Yes Hx Substance Use: No - Surgical History Hx Abdominal Aortic Aneurysm Repair: No - Anesthesia Hx Anesthesia: Yes Hx Anesthesia Reactions: No Hx Malignant Hyperthermia: No Family/Social History - Physician Review Nursing Documentation Reviewed: Yes Family/Social History: No Known Family HX Smoking Status: Former Smoker Hx Alcohol Use: No Hx Substance Use: No Allergies/Home Meds Allergies/Adverse Reactions: Allergies No Known Allergies Allergy (Verified 07/06/16 15:19) Home Medications: Home Meds Medication Instructions Recorded Confirmed DULoxetine [Cymbalta] 30 mg PO DAILY 05/13/16 07/08/16 Gabapentin [Neurontin] 800 mg PO TID 05/13/16 07/08/16 Multivitamin/Iron/Folic Acid 1 tab PO DAILY 05/24/16 07/08/16 [Certavite-Antioxidant Tablet] Verapamil HCl [Verapamil ER] 120 tab PO DAILY 06/01/16 07/08/16 Atenolol [Tenormin] 50 mg PO DAILY 07/06/16 07/08/16 Cyproheptadine [Periactin] 4 mg PO HS 07/06/16 07/08/16 Lisinopril [Zestril] 10 mg PO DAILY 07/06/16 07/08/16 Review of Systems - Physician Review All systems were reviewed & negative as marked: Yes - Review of Systems Constitutional: Normal. absent: Fevers Eyes: Normal ENT: Normal Respiratory: Normal. absent: SOB, Cough Cardiovascular: Normal. absent: Chest Pain Gastrointestinal: Normal. absent: Abdominal Pain, Diarrhea, Nausea, Vomiting Genitourinary Male: Normal. absent: Dysuria, Frequency, Hematuria, Urinary Output Changes Musculoskeletal: Normal. absent: Back Pain, Neck Pain Skin: Normal. absent: Rash Neurological: Normal. absent: Headache, Dizziness Endocrine: Normal Hemo/Lymphatic: Normal Psychiatric: Normal Physical Exam Vital Signs Reviewed: Yes Vital Signs Temp Pulse Resp BP Pulse Ox 07/13/16 00:09 68 16 113/76 99 07/12/16 22:14 70 18 130/83 100 07/12/16 19:51 97.4 F L 73 17 133/87 100 Temperature: Afebrile Blood Pressure: Normal Pulse: Regular Respiratory Rate: Normal Appearance: Positive for: Well-Appearing, Non-Toxic, Comfortable Pain Distress: None Mental Status: Positive for: Alert and Oriented X 3 - Systems Exam Head: Present: Atraumatic, Normocephalic Pupils: Present: PERRL Extroacular Muscles: Present: EOMI Conjunctiva: Present: Normal Mouth: Present: Moist Mucous Membranes Neck: Present: Normal Range of Motion Respiratory/Chest: Present: Clear to Auscultation, Good Air Exchange. No: Respiratory Distress, Accessory Muscle Use Cardiovascular: Present: Regular Rate and Rhythm, Normal S1, S2. No: Murmurs Abdomen: Present: Normal Bowel Sounds. No: Tenderness, Distention, Peritoneal Signs Back: Present: Normal Inspection Upper Extremity: Present: Normal Inspection. No: Cyanosis, Edema Lower Extremity: Present: Normal Inspection. No: Edema Neurological: Present: GCS=15, CN II-XII Intact, Speech Normal Skin: Present: Warm, Dry, Normal Color. No: Rashes Psychiatric: Present: Alert, Oriented x 3, Normal Insight, Normal Concentration Medical Decision Making ED Course and Treatment: 07/12/16 20:00 Impression: 66 year old male brought to Emergency department because there was no motion picture projectionist apprentice at home. Plan: -- Reassess and disposition Prior Visits: Notes and results from previous visits were reviewed. Progress Notes: - Scribe Statement The provider has reviewed the documentation as recorded by the Scribe Hailey Perez All medical record entries made by the Scribe were at my direction and personally dictated by me. I have reviewed the chart and agree that the record accurately reflects my personal performance of the history, physical exam, medical decision making, and the department course for this patient. I have also personally directed, reviewed, and agree with the discharge instructions and disposition. Disposition/Present on Arrival - Present on Arrival Any Indicators Present on Arrival: No History of DVT/PE: No History of Uncontrolled Diabetes: No Urinary Catheter: No History of Decub. Ulcer: No History Surgical Site Infection Following: None - Disposition Have Diagnosis and Disposition been Completed?: Yes Diagnosis: New onset atrial flutter Disposition: HOME/ ROUTINE Disposition Time: 20:00 Condition: GOOD Referrals: Shawn Weaver MD [Primary Care Provider] - Follow up with primary
[2016-07-13 00:09] VITALS: BP 113/76; PULSE 68; RESP 16; O2SAT 99
== END 2016-07-13 00:11 | disposition home or self-care (01) ==
LOC: ED 19:50
DX: I48.92 Unspecified atrial flutter (principal)

== ENCOUNTER 2016-07-20 15:05 | Emergency (ER) | payer OTHER ==
[2016-07-20 15:05] VITALS: PULSE 104
[2016-07-20 15:17] VITALS: BMI 25.1
[2016-07-20] MEDS ORDERED: Sodium Chloride 0.9% 1,000 ML IV STA (15:17)
[2016-07-20 15:18] VITALS: TEMP 97.8
--- NOTE | 2016-07-20 15:45 | ED PDOC ---
Arrival/HPI - General Time Seen by Provider: 07/20/16 15:16 Historian: Patient - History of Present Illness Narrative History of Present Illness (Text): 07/20/16 15:39 66 year old male whose past medical history includes CVA with right facial droop and right upper extremity and right lower extremity deficits brought in by EMS after witnessed syncopal episode. Patient denies any trauma or injury. He states he does not recall the event. No complaints at this time. Time/Duration: Prior to Arrival Symptom Onset: Sudden Symptom Course: Resolved Associated Symptoms (Text): None Past Medical History - Provider Review Nursing Documentation Reviewed: Yes - Infectious Disease Hx of Infectious Diseases: None - Tetanus Immunization Tetanus Immunization: Unknown - Cardiac Hx Cardiac Disorders: Yes (mi) Hx Hypertension: Yes - Pulmonary Hx Pneumonia: Yes - Neurological HX Cerebrovascular Accident: Yes (R sided weakness, dysarthria) - HEENT Hx HEENT Disorder: Yes (impairred speech) - Renal Hx Renal Disorder: No - Endocrine/Metabolic Hx Endocrine Disorders: No - Hematological/Oncological Hx Blood Disorders: No - Integumentary Other/Comment: healed sacral wound, mult discolorations ble - Musculoskeletal/Rheumatological Hx Falls: Yes - Gastrointestinal Hx Gastrointestinal Disorders: No - Genitourinary/Gynecological Hx Genitourinary Disorders: No - Psychiatric Hx Psychophysiologic Disorder: Yes Hx Depression: Yes Hx Substance Use: No - Surgical History Hx Abdominal Aortic Aneurysm Repair: No - Anesthesia Hx Anesthesia: Yes Hx Anesthesia Reactions: No Hx Malignant Hyperthermia: No Family/Social History - Physician Review Nursing Documentation Reviewed: Yes Family/Social History: Unknown Family HX Smoking Status: Former Smoker Hx Alcohol Use: No Hx Substance Use: No Allergies/Home Meds Allergies/Adverse Reactions: Allergies No Known Allergies Allergy (Verified 07/06/16 15:19) Home Medications: Home Meds Medication Instructions Recorded Confirmed DULoxetine [Cymbalta] 30 mg PO DAILY 05/13/16 07/08/16 Gabapentin [Neurontin] 800 mg PO TID 05/13/16 07/08/16 Multivitamin/Iron/Folic Acid 1 tab PO DAILY 05/24/16 07/08/16 [Certavite-Antioxidant Tablet] Verapamil HCl [Verapamil ER] 120 tab PO DAILY 06/01/16 07/08/16 Atenolol [Tenormin] 50 mg PO DAILY 07/06/16 07/08/16 Cyproheptadine [Periactin] 4 mg PO HS 07/06/16 07/08/16 Lisinopril [Zestril] 10 mg PO DAILY 07/06/16 07/08/16 Review of Systems - Physician Review All systems were reviewed & negative as marked: Yes Physical Exam - Physical Exam Narrative Physical Exam (Text): - Review of Systems Constitutional: Normal. absent: Fatigue, Weight Change, Fevers Eyes: Normal ENT: Normal Respiratory: Normal absent: SOB, Cough, Sputum Cardiovascular: Syncope absent: Chest pain, Palpitations Gastrointestinal: Normal absent: Abdominal pain, Diarrhea, Nausea, Vomiting Genitourinary: Normal. absent: Dysuria, Frequency, Hematuria Musculoskeletal: Normal. absent: Arthralgias, Back Pain, Neck Pain Skin: Normal Neurological: Normal absent: Focal Weakness Endocrine: Normal Hemo/Lymphatic: Normal Psychiatric: Normal - Physical exam Patient appears age appropriate, slurring speech, which pt states is chronic - Systems Exam Head: Present: Atraumatic, Normocephalic Pupils: Present: PERRL Extraocular Muscles: Present: EOMI Conjunctiva: Present: Normal Mouth: Present: Moist Mucous Membranes Neck: Present: Normal Range of Motion. No: MIDLINE TENDERNESS, Paraspinal Tenderness Respiratory/Chest: Present: Clear to Auscultation, Good Air Exchange. No: Respiratory Distress, Accessory Muscle Use, Tachypneic Cardiovascular: Present: Regular Rate and Rhythm, Normal S1, S2, Peripheral Pulses Present. No: Murmurs Abdomen: Present: Normal Bowel Sounds, No: Tenderness, Peritoneal Signs, Rebound, Guarding, Distention Back: Present: Normal Inspection. No: Midline Tenderness, Paraspinal Tenderness Upper Extremity: Present: Normal Inspection. No: Cyanosis, Edema Lower Extremity: Present: Normal Inspection. No: Edema Neurological: Present: Right facial droop, right upper extremity paralysis, and right lower extremity paralysis (patient states these are chronic); GCS=15, Speech Normal, cranial nerves II through XII fully intact with no cerebellar abnormality, neuro-sensory fully intact. No acute focal neurological deficits. Skin: Present: Warm, Dry, Normal Color. No: Rashes Lymphatic: Present: OX3, NI, NC Psychiatric: Present: Alert, Oriented x 3, Normal Insight, Normal Concentration Vital Signs Reviewed: Yes Vital Signs Temp Pulse Resp BP Pulse Ox 07/20/16 15:05 97.8 F 72 18 105/64 99 Temperature: Afebrile Blood Pressure: Normal Pulse: Regular Respiratory Rate: Normal Appearance: Positive for: Well-Appearing, Non-Toxic, Comfortable Pain Distress: None Mental Status: Positive for: Alert and Oriented X 3 Finger Stick Blood Glucose: 147 Medical Decision Making ED Course and Treatment: Impression: 66 year old male whose past medical history includes CVA with right facial droop and right upper extremity and right lower extremity deficits brought in by EMS after witnessed syncopal episode. Patient has chronic deficits from previous CVA, but no acute findings on physical exam. Patient has a history of seizure disorder, on Keppra. Patient had no fecal or urinary incontinence, has no tongue biting, and did not have postictal state. Differential Diagnosis included but are not limited to: Syncope Plan: -- CT Head -- Labs -- Reassess and disposition Prior Visits: Notes and results from previous visits were reviewed. Patient last seen in the ED on 07/08/16 for generalized weakness, decreased appetite and admitted for New onset seizure, New onset atrial flutter. Progress Notes: EKG shows NSR at [address]-segment elevations, new T-wave inversions in lateral leads. Interpreted by me. 07/20/16 17:13 The patient refuses admission and wishes to leave the Emergency Department against my medical advice. Patient was told that admission to the hospital is necessary and a full explanation of the reasons why was given, and understood by patient. The risks of leaving were explained and include worsening of condition, and permanent disability and from an undiagnosed or untreated condition. The patient accepts these risks, and is in my judgment is competent and capable of understanding the clinical situation and my explanation of the risks of leaving. Patient was given the opportunity to ask questions and change mind. The patient was instructed regarding the best care for the present symptoms, and to follow up with Dr. his primary physician as soon as possible, or return to the Emergency Department at any time for continuing care. - Lab Interpretations Lab Results: 07/20/16 16:20 07/20/16 16:20 Lab Results 07/20/16 16:20: Sodium 143, Potassium 4.8, Chloride 103, Carbon Dioxide 31, Anion Gap 14, BUN 19, Creatinine 1.1, Est GFR ( Amer) > 60, Est GFR (Non- Af Amer) > 60, Random Glucose 97, Calcium 9.8, Total Bilirubin 1.0, AST 86 H, ALT 52, Alkaline Phosphatase 114, Lactate Dehydrogenase 502, Total Creatine Kinase 73, Troponin I 0.02 D, Total Protein 8.8 H, Albumin 3.7, Globulin 5.1, Albumin/Globulin Ratio 0.7 L 07/20/16 16:20: PT 12.0 H, INR 1.11 H, APTT 25.2 07/20/16 16:20: WBC 5.3 D, RBC 4.38, Hgb 11.5 L, Hct 35.7 L, MCV 81.5, MCH 26.3 , MCHC 32.2, RDW 18.7 H, Plt Count 314, MPV 10.9, Gran % 66.8, Lymph % (Auto) 22.5, [place] % (Auto) 8.4 H, Eos % (Auto) 1.7, Baso % (Auto) 0.6, Gran # 3.57, Lymph # 1.2, [place] # 0.5, Eos # 0.1, Baso # 0.03 07/20/16 15:09: POC Glucose (mg/dL) 147 H - RAD Interpretation Radiology Orders: 07/20/16 15:17 HEAD W/O CONTRAST [CT] Stat - EKG Interpretation Interpreted by ED Physician: Yes Type: 12 lead EKG - Medication Orders Current Medication Orders: Discontinued Medications Sodium Chloride (Sodium Chloride 0.9%) 1,000 mls @ 1,000 mls/hr IV .Q1H STA Stop: 07/20/16 16:16 Last Admin: 07/20/16 16:24 Dose: 1,000 mls/hr - Scribe Statement The provider has reviewed the documentation as recorded by the Joshua Krause Provider Scribe Attestation: All medical record entries made by the Joshua were at my direction and personally dictated by me. I have reviewed the chart and agree that the record accurately reflects my personal performance of the history, physical exam, medical decision making, and the department course for this patient. I have also personally directed, reviewed, and agree with the discharge instructions and disposition. Disposition/Present on Arrival - Present on Arrival Any Indicators Present on Arrival: No History of DVT/PE: No History of Uncontrolled Diabetes: No Urinary Catheter: No History Surgical Site Infection Following: None - Disposition Have Diagnosis and Disposition been Completed?: Yes Diagnosis: Syncope Disposition: HOME/ ROUTINE Disposition Time: 17:17 Patient Plan: Discharge Condition: FAIR Discharge Instructions (ExitCare): Syncope (ED) Additional Instructions: PLEASE RETURN TO THE EMERGENCY DEPARTMENT FOR NEW OR WORSENING SYMPTOMS. RETURN RIGHT AWAY IF YOU CANNOT FOLLOW UP WITH YOUR PRIMARY CARE DOCTOR, CLINIC, OR SPECIALIST IN 1-2 DAYS. Referrals: Ken Astudillo, [Primary Care Provider] - Follow up with primary Don Billingsley MD [Staff Provider] - [place] up [place] [facility] [place] [facility] [place] - Follow up with primary
[2016-07-20 16:33] LABS: ADD MANUAL DIFF? NO
[2016-07-20 16:39] LABS: BASO # 0.03 K/mm3 (0.0-2.0); BASO % 0.6 % (0.0-3.0); EOS # 0.1 (0.0-0.7); EOS % 1.7 % (1.5-5.0); GRAN # 3.57 (1.4-6.5); GRAN % 66.8 % (50.0-68.0); HEMATOCRIT 35.7 % (42.0-52.0); LYMPH # 1.2 (1.2-3.4); LYMPH % 22.5 % (22.0-35.0); MEAN CELL VOLUME 81.5 fL (80.0-105.0); MEAN CORPUSCULAR HEMOGLOBIN 26.3 pg (25.0-35.0); MEAN CORPUSCULAR HGB CONC 32.2 g/dl (31.0-37.0); MEAN PLATELET VOLUME 10.9 fl (7.0-11.0); MONO # 0.5 (0.1-0.6); MONO % 8.4 % (1.0-6.0); PLATELET COUNT 314 10^3/uL (120.0-450.0); RED CELL DISTRIBUTION WIDTH 18.7 % (11.5-14.5); WHITE BLOOD COUNT 5.3 10^3/ul (4.5-11.0)
[2016-07-20 16:49] LABS: ALB/GLOB RATIO 0.7 (1.1-1.8); ALKALINE PHOSPHATASE 114 U/L (38-133); ALT/SGPT 52 U/L (7-56); AST/SGOT 86 U/L (15-59); BLOOD UREA NITROGEN 19 mg/dL (7-21); CALCIUM 9.8 mg/dL (8.4-10.5); CARBON DIOXIDE 31 mmol/L (21-33); CHLORIDE 103 mmol/L (98-107); GFR AFRICAN-AMERICAN > 60; GLUCOSE,RANDOM 97 mg/dL (70-110); SODIUM 143 mmol/L (132-148); TOTAL PROTEIN 8.8 g/dL (5.8-8.3)
[2016-07-20 16:53] LABS: INR 1.11 (0.93-1.08); PARTIAL THROMBOPLASTIN TIME 25.2 Seconds (23.7-30.8); POTASSIUM 4.8 mmol/L (3.6-5.0)
[2016-07-20 17:01] LABS: TROPONIN I 0.02 ng/mL
--- NOTE | 2016-07-20 17:18 | CT ---
PROCEDURE: CT HEAD WITHOUT CONTRAST. HISTORY: syncope COMPARISON: Noncontrast head CT performed 07/08/16 TECHNIQUE: Axial computed tomography images were obtained through the head/brain without intravenous contrast. Radiation dose: Total exam DLP = 774.23 MGy-cm. This CT exam was performed using one or more of the following dose reduction techniques: Automated exposure control, adjustment of the mA and/or kV according to patient size, and/or use of iterative reconstruction technique. FINDINGS: HEMORRHAGE: No intracranial hemorrhage. BRAIN: Diffuse atrophy with prominence of the ventricles and sulci noted. No mass effect or edema. Left thalamus and the left basal ganglia encephalomalacia. Moderate scattered periventricular and subcortical white matter hypodensities, which are nonspecific, but often seen with chronic microvascular ischemic disease. Please note that MRI with diffusion imaging is more sensitive in the detection of acute ischemic event. VENTRICLES: No hydrocephalus. CALVARIUM: Unremarkable. PARANASAL SINUSES: Unremarkable as visualized. No significant inflammatory changes. MASTOID AIR CELLS: Unremarkable as visualized. No inflammatory changes. OTHER FINDINGS: None. IMPRESSION: Left thalamus and the left basal ganglia encephalomalacia. Moderate nonspecific white matter changes. Please note that MRI with diffusion imaging is more sensitive in the detection of acute ischemic event. Generalized atrophy.
[2016-07-20 22:29] VITALS: BP 145/95; PULSE 83; RESP 18; O2SAT 99
--- NOTE | 2016-07-21 09:40 | CARD ---
APPROVED REPORT EKG Measurement Heart [id number] ND 180P73 [id number] <Conclusion> Normal sinus rhythm Left axis deviation/LAHB Inferior infarct, age undetermined ST & T wave abnormality, consider lateral ischemia, new
== END 2016-07-20 22:41 | disposition home or self-care (01) ==
LOC: ED 15:05
DX: R55 Syncope and collapse (principal); I25.2 Old myocardial infarction; I10 Essential (primary) hypertension; Z86.73 Personal history of transient ischemic attack (TIA), and cerebral infarction without residual deficits; Z87.891 Personal history of nicotine dependence
CPT/HCPCS: 70450; 80053; 82550; 82948; 83615; 84484; 85025; 85610; 85730; 93005; 96360; 99285; J7040

== ENCOUNTER 2016-11-02 15:31 | Emergency (ER) | payer OTHER ==
[2016-11-02 15:31] VITALS: PULSE 104; BMI 25.1
[2016-11-02 15:58] VITALS: TEMP 97
[2016-11-02 16:24] LABS: BASO # 0.02 K/mm3 (0.0-2.0); BASO % 0.3 % (0.0-3.0); EOS # 0.1 (0.0-0.7); EOS % 1.6 % (1.5-5.0); GRAN # 4.89 (1.4-6.5); GRAN % 63.8 % (50.0-68.0); HEMATOCRIT 43.9 % (42.0-52.0); LYMPH # 2.2 (1.2-3.4); LYMPH % 28.6 % (22.0-35.0); MEAN CELL VOLUME 82.2 fl (80.0-105.0); MEAN CORPUSCULAR HEMOGLOBIN 27.5 pg (25.0-35.0); MEAN CORPUSCULAR HGB CONC 33.5 g/dl (31.0-37.0); MONO # 0.4 (0.1-0.6); MONO % 5.7 % (1.0-6.0); RED CELL DISTRIBUTION WIDTH 14.5 % (11.5-14.5); WHITE BLOOD COUNT 7.7 10^3/ul (4.5-11.0)
[2016-11-02 16:29] LABS: INR 1.18 (0.93-1.08); PARTIAL THROMBOPLASTIN TIME 27.3 Seconds (23.7-30.8)
[2016-11-02 16:30] LABS: ALB/GLOB RATIO 0.9 (1.1-1.8); ALKALINE PHOSPHATASE 117 U/L (38-126); ALT/SGPT 40 U/L (7-56); AST/SGOT 49 U/L (17-59); BLOOD UREA NITROGEN 20 mg/dL (7-21); CALCIUM 9.4 mg/dL (8.4-10.5); CARBON DIOXIDE 31 mmol/L (21-33); CHLORIDE 104 mmol/L (98-107); GFR AFRICAN-AMERICAN > 60; GLUCOSE,RANDOM 107 mg/dL (70-110); MAGNESIUM 1.8 mg/dL (1.7-2.2); PHOSPHOROUS 4.4 mg/dL (2.5-4.5); POTASSIUM 3.7 mmol/L (3.6-5.0); SODIUM 144 mmol/L (132-148); TOTAL PROTEIN 8.1 g/dL (5.8-8.3)
[2016-11-02 16:41] LABS: TROPONIN I 0.02 ng/mL
--- NOTE | 2016-11-02 16:55 | CT ---
PROCEDURE: CT HEAD WITHOUT CONTRAST. HISTORY: syncope COMPARISON: 07/21/16. TECHNIQUE: Axial computed tomography images were obtained through the head/brain without intravenous contrast. Radiation dose: Total exam DLP = mGy-cm. This CT exam was performed using one or more of the following dose reduction techniques: Automated exposure control, adjustment of the mA and/or kV according to patient size, and/or use of iterative reconstruction technique. FINDINGS: HEMORRHAGE: No intracranial hemorrhage. BRAIN: No mass effect or edema; chronic microvascular ischemic changes. VENTRICLES: Unremarkable. No hydrocephalus. CALVARIUM: Unremarkable. PARANASAL SINUSES: Unremarkable as visualized. No significant inflammatory changes. MASTOID AIR CELLS: Unremarkable as visualized. No inflammatory changes. OTHER FINDINGS: None. IMPRESSION: No acute bleed..
--- NOTE | 2016-11-02 16:58 | ED PDOC ---
Arrival/HPI - General Chief Complaint: Altered Mental Status Time Seen by Provider: 11/02/16 16:08 Historian: Patient - History of Present Illness Narrative History of Present Illness (Text): 11/02/16 16:51 A 66 year old male, whose past medical history includes CVA and wheel chair bound, presents to the emergency department for possible syncope. Patient reports while waiting for an elevator with 2 other people present he had an episode of questionable syncope causing him to fall of his wheel chair. As per EMS, bystanders reported after patient regained consciousness he was slightly disoriented. On evaluation in the emergency room patient is alert and oriented times 3 with no physical complaints. Patient denies injuries, head trauma, headache, dizziness, vision changes, neck pain, nausea, vomiting, abdominal pain , back pain, chest pain, shortness of breath or any other complaints. Time/Duration: Prior to Arrival Past Medical History - Provider Review Nursing Documentation Reviewed: Yes - Infectious Disease Hx of Infectious Diseases: None - Tetanus Immunization Tetanus Immunization: Unknown - Cardiac Hx Cardiac Disorders: Yes (mi) Hx Hypertension: Yes - Pulmonary Hx Pneumonia: Yes - Neurological HX Cerebrovascular Accident: Yes (R sided weakness, dysarthria) - HEENT Hx HEENT Disorder: Yes (impairred speech) - Renal Hx Renal Disorder: No - Endocrine/Metabolic Hx Endocrine Disorders: No - Hematological/Oncological Hx Blood Disorders: No - Integumentary Other/Comment: healed sacral wound, mult discolorations ble - Musculoskeletal/Rheumatological Hx Falls: Yes - Gastrointestinal Hx Gastrointestinal Disorders: No - Genitourinary/Gynecological Hx Genitourinary Disorders: No - Psychiatric Hx Psychophysiologic Disorder: Yes Hx Depression: Yes Hx Substance Use: No - Surgical History Hx Abdominal Aortic Aneurysm Repair: No - Anesthesia Hx Anesthesia: Yes Hx Anesthesia Reactions: No Hx Malignant Hyperthermia: No Family/Social History - Physician Review Nursing Documentation Reviewed: Yes Family/Social History: No Known Family HX Smoking Status: Former Smoker Hx Alcohol Use: No Hx Substance Use: No Allergies/Home Meds Allergies/Adverse Reactions: Allergies No Known Allergies Allergy (Verified 07/06/16 15:19) Home Medications: Home Meds Medication Instructions Recorded Confirmed DULoxetine [Cymbalta] 30 mg PO DAILY 05/13/16 07/08/16 Gabapentin [Neurontin] 800 mg PO TID 05/13/16 07/08/16 Multivitamin/Iron/Folic Acid 1 tab PO DAILY 05/24/16 07/08/16 [Certavite-Antioxidant Tablet] Verapamil HCl [Verapamil ER] 120 tab PO DAILY 06/01/16 07/08/16 Atenolol [Tenormin] 50 mg PO DAILY 07/06/16 07/08/16 Cyproheptadine [Periactin] 4 mg PO HS 07/06/16 07/08/16 Lisinopril [Zestril] 10 mg PO DAILY 07/06/16 07/08/16 Review of Systems - Physician Review All systems were reviewed & negative as marked: Yes - Review of Systems Constitutional: Normal. absent: Fevers, Night Sweats Eyes: absent: Vision Changes Respiratory: absent: SOB Cardiovascular: absent: Chest Pain Gastrointestinal: absent: Abdominal Pain, Nausea, Vomiting Musculoskeletal: absent: Back Pain, Neck Pain Neurological: absent: Headache, Dizziness Physical Exam Vital Signs Reviewed: Yes Vital Signs Temp Pulse Resp BP Pulse Ox 11/02/16 19:36 75 20 160/80 H 99 11/02/16 15:57 97 F L 62 20 100 11/02/16 15:45 117/69 Temperature: Afebrile Blood Pressure: Normal Pulse: Regular Respiratory Rate: Normal Appearance: Positive for: Well-Appearing, Non-Toxic, Comfortable Pain Distress: None Mental Status: Positive for: Alert and Oriented X 3 Finger Stick Blood Glucose: 126 - Systems Exam Head: Present: Atraumatic, Normocephalic Pupils: Present: PERRL Extroacular Muscles: Present: EOMI Conjunctiva: Present: Normal Mouth: Present: Moist Mucous Membranes Pharnyx: No: ERYTHEMA, EXUDATE, TONSILS ENLARGED Neck: Present: Normal Range of Motion, Other (Neck supple). No: MIDLINE TENDERNESS, Paraspinal Tenderness Respiratory/Chest: Present: Clear to Auscultation, Good Air Exchange. No: Respiratory Distress, Accessory Muscle Use Cardiovascular: Present: Regular Rate and Rhythm, Normal S1, S2. No: Murmurs Abdomen: Present: Normal Bowel Sounds. No: Tenderness, Distention, Peritoneal Signs Back: Present: Normal Inspection. No: Midline Tenderness, Paraspinal Tenderness Upper Extremity: Present: Normal Inspection, Normal ROM, NORMAL PULSES, Other ( Motor function fully intact in left extremity, zero movement to right extremity) . No: Cyanosis, Edema Lower Extremity: Present: Other (Motor function fully intact in left extremity, zero movment on right extremity). No: Edema, Tenderness (bony hip tenderness) Neurological: Present: GCS=15. No: Speech Normal (slurred (baseline- see prior documentation)) Skin: Present: Warm, Dry, Normal Color. No: Rashes Psychiatric: Present: Alert, Oriented x 3, Normal Insight, Normal Concentration Medical Decision Making ED Course and Treatment: 11/02/16 16:51 Impression: A 66 year old male brought in for evaluation after possible syncopal episode. Patient is alert and oriented and denies any complaints at this time. Plan: -- Head CT -- Hip xray -- Chest xray -- EKG -- Urinalysis -- Reassess and disposition Progress Notes: Report Date : 11/02/2016 16:53:48 PROCEDURE: CT HEAD WITHOUT CONTRAST. Dictator : Antoni Cronin MD IMPRESSION: No acute bleed. EKG shows NSR at 62bpm with LAD, and t wave inversions, unchanged from prior. Labs grossly normal. 11/02/16 18:03 Cxray negative as read by me. Hip xray: Impression: Limited study as detailed above. Questionable nondisplaced fracture right femoral neck. Heterotopic bone changes surround the right hip joint as well as the inferior margins of the superior and inferior pubic rami. . Followup CT scan recommended if clinically indicated. Note that these findings were discussed with ER physician Lisa at approximately 6:43 p.m. with written down and read back verification. Patient is not ambulatory. He denies R sided hip pain and is non-tender. I explained to patient that he needs CT to evaluate further and admission to evaluate for syncope. Patient seen by me in June 2016 for same complaint and signed out against medical advise. Patient was seen again in July 2016 for the same complaint and refused to be admitted. Patient experienced his third syncopal episode today, he was advised to stay in the hospital for further evaluation, however he is refusing to stay. The patient is choosing to leave against medical advice. I have personally explained to the patient that choosing to do so may result in permanent bodily harm or . I have discussed at great length that without further evaluation and monitoring there may be unforeseen circumstances and/or deterioration causing permanent bodily harm or as a result of their choice. The patient is alert, oriented, and shows the mental capacity to make clear decisions regarding the patients health care at this time. The patient continues to wish to leave against medical advice. In light of the patients decision to leave against medical advice, follow-up has been arranged and the patient is aware of the importance to following up as instructed. The patient has been advised that they should return to the emergency room immediately if they change their mind at any time, or if their condition begins to change or worsen in any way.. - Lab Interpretations Lab Results: 11/02/16 16:10 11/02/16 16:10 Lab Results 11/02/16 16:10: PT 12.7 H, INR 1.18 H, APTT 27.3 11/02/16 16:10: Sodium 144, Potassium 3.7, Chloride 104, Carbon Dioxide 31, Anion Gap 13, BUN 20, Creatinine 1.2, Est GFR ( Amer) > 60, Est GFR (Non- Af Amer) > 60, Random Glucose 107, Calcium 9.4, Phosphorus 4.4, Magnesium 1.8, Total Bilirubin 1.0, AST 49, ALT 40, Alkaline Phosphatase 117, Lactate Dehydrogenase 412, Total Creatine Kinase 79, Troponin I 0.02, Total Protein 8.1 , Albumin 3.9, Globulin 4.2, Albumin/Globulin Ratio 0.9 L 11/02/16 16:10: WBC 7.7 D, RBC 5.34, Hgb 14.7, Hct 43.9, MCV 82.2, MCH 27.5, MCHC 33.5, RDW 14.5, Plt Count 139, MPV 11.0, Gran % 63.8, Lymph % (Auto) 28.6, [place] % (Auto) 5.7, Eos % (Auto) 1.6, Baso % (Auto) 0.3, Gran # 4.89, Lymph # 2.2 , [place] # 0.4, Eos # 0.1, Baso # 0.02 I have reviewed the lab results: Yes - RAD Interpretation Radiology Orders: 11/02/16 16:08 HEAD W/O CONTRAST [CT] Stat CHEST ONE VIEW [RAD] Stat 11/02/16 16:09 HIP MIN 2V W/ PELVIS NIKHIL [RAD] Stat - Scribe Statement The provider has reviewed the documentation as recorded by the Joshua Marshall Provider Scribe Attestation: All medical record entries made by the Scribe were at my direction and personally dictated by me. I have reviewed the chart and agree that the record accurately reflects my personal performance of the history, physical exam, medical decision making, and the department course for this patient. I have also personally directed, reviewed, and agree with the discharge instructions and disposition. Disposition/Present on Arrival - Present on Arrival Any Indicators Present on Arrival: No History of DVT/PE: No History of Uncontrolled Diabetes: No Urinary Catheter: No History of Decub. Ulcer: No History Surgical Site Infection Following: None - Disposition Have Diagnosis and Disposition been Completed?: Yes Diagnosis: Syncope, Fall Disposition: AGAINST MEDICAL ADVICE Disposition Time: 18:03 Patient Problems: Current Active Problems Problem Status Onset Syncope Acute Condition: UNKNOWN Discharge Instructions (ExitCare): Syncope (ED) Referrals: Shawn Weaver MD [Primary Care Provider] - Follow up with primary Forms: [employer] ([place])
--- NOTE | 2016-11-02 18:47 | RAD ---
PROCEDURE: Pelvis bilateral hips dated 11/02/2016. AP view of the pelvis and AP/ frogleg lateral views of both hips performed. HISTORY: Status post fall COMPARISON: No prior study available comparison FINDINGS: BONES: The study is limited due to poor patient positioning. In addition, right upper extremity artifact partially overlaps the right proximal femur limiting evaluation. Questionable non artifact versus nondisplaced fracture of the right femoral neck. Consider followup CT scan for further evaluation. Heterotopic bone changes are seen surrounding the right hip as well as of what may represent at enthesophyte and productive changes arising from the inferior margins of both the superior and inferior pubic rami. Findings are nonspecific though could represent sequela of old trauma. IMPRESSION: Impression: Limited study as detailed above. Questionable nondisplaced fracture right femoral neck. Heterotopic bone changes surround the right hip joint as well as the inferior margins of the superior and inferior pubic rami. . Followup CT scan recommended if clinically indicated. . Note that these findings were discussed with ER physician Lisa at approximately 6:43 p.m. with written down and read back verification.
[2016-11-02 19:37] VITALS: PULSE 75; O2SAT 99
--- NOTE | 2016-11-02 20:41 | CARD ---
APPROVED REPORT EKG Measurement Heart [id number] [place] [id number] <Conclusion> Normal sinus rhythm Left axis deviation T wave abnormality, consider inferolateral ischemia Abnormal ECG
[2016-11-02 23:23] VITALS: BP 164/86; RESP 16
--- NOTE | 2016-11-03 10:49 | RAD ---
PROCEDURE: CHEST RADIOGRAPH, 1 VIEW HISTORY: syncope COMPARISON: 07/08/2016. FINDINGS: LUNGS: The lungs are well inflated. There is an apparent 7 mm nodule in the left mid lung. No focal consolidation. PLEURA: No pneumothorax or pleural fluid seen. CARDIOVASCULAR: Normal. OSSEOUS STRUCTURES: No significant abnormalities. VISUALIZED UPPER ABDOMEN: Normal. OTHER FINDINGS: None. IMPRESSION: No acute findings. Apparent 7 mm nodule in the left mid lung. A dedicated CT scan of the thorax without intravenous contrast is recommended for further characterization. The final read was tagged to the PA review folder.
== END 2016-11-02 23:24 | disposition left against medical advice (07) ==
LOC: ED 15:31
DX: R55 Syncope and collapse (principal); Z87.891 Personal history of nicotine dependence

== ENCOUNTER 2017-04-03 17:10 | Inpatient (IN) | payer OTHER ==
[2017-04-03 17:10] VITALS: PULSE 104
[2017-04-03 17:28] VITALS: BMI 22.3
--- NOTE | 2017-04-03 17:51 | ED PDOC ---
Arrival/HPI - General Chief Complaint: Altered Mental Status Time Seen by Provider: 04/03/17 17:18 - History of Present Illness Narrative History of Present Illness (Text): 04/03/17 17:46 Pt is a 66 yo M with PMH of CVA w/ residual R sided weakness, HTN, depression, pneumonia presents to emergency department due to concerns for AMS by experimental preflight mechanic. She states that patient has been having 2 days of diarrhea, but denies any new medications. Today, pt was found by experimental preflight mechanic stooped over while sitting on toilet. Pt was responding inappropriately to experimental preflight mechanic's questions. At that point EMS was called. Mushroom Sorter Grader states that patient was at baseline on Wednesday. Pt hemiparetic on right side and non-ambulatory. According to experimental preflight mechanic, patient is generally AOx3, but has been aphasic since CVA. Today, patient is oriented to self, but not place or time. Unable to obtain ROS due to patient's current mental status. PMD: Meg Past Medical History - Infectious Disease Hx of Infectious Diseases: None - Tetanus Immunization Tetanus Immunization: Unknown - Cardiac Hx Cardiac Disorders: Yes (mi) Hx Hypertension: Yes - Pulmonary Hx Pneumonia: Yes - Neurological HX Cerebrovascular Accident: Yes (R sided weakness, dysarthria) - HEENT Hx HEENT Disorder: Yes (impairred speech) - Renal Hx Renal Disorder: No - Endocrine/Metabolic Hx Endocrine Disorders: No - Hematological/Oncological Hx Blood Disorders: No - Integumentary Other/Comment: healed sacral wound, mult discolorations ble - Musculoskeletal/Rheumatological Hx Falls: Yes - Gastrointestinal Hx Gastrointestinal Disorders: No - Genitourinary/Gynecological Hx Genitourinary Disorders: No - Psychiatric Hx Psychophysiologic Disorder: Yes Hx Depression: Yes Hx Substance Use: No - Surgical History Hx Abdominal Aortic Aneurysm Repair: No - Anesthesia Hx Anesthesia: Yes Hx Anesthesia Reactions: No Hx Malignant Hyperthermia: No Family/Social History Family/Social History: No Known Family HX Smoking Status: Former Smoker Hx Alcohol Use: No Hx Substance Use: No Allergies/Home Meds Allergies/Adverse Reactions: Allergies No Known Allergies Allergy (Verified 04/03/17 17:24) Home Medications: Home Meds Medication Instructions Recorded Confirmed DULoxetine [Cymbalta] 30 mg PO DAILY 05/13/16 04/03/17 Gabapentin [Neurontin] 800 mg PO TID 05/13/16 04/03/17 Multivitamin/Iron/Folic Acid 1 tab PO DAILY 05/24/16 04/03/17 [Certavite-Antioxidant Tablet] Verapamil HCl [Verapamil ER] 120 tab PO DAILY 06/01/16 04/03/17 Atenolol [Tenormin] 50 mg PO DAILY 07/06/16 04/03/17 Cyproheptadine [Periactin] 4 mg PO HS 07/06/16 04/03/17 Lisinopril [Zestril] 10 mg PO DAILY 07/06/16 04/03/17 Review of Systems - Review of Systems Systems not reviewed;Unavailable: Altered Mental Status Physical Exam Vital Signs Reviewed: Yes Vital Signs Temp Pulse Resp BP Pulse Ox 04/03/17 22:03 102.5 F H 108 H 18 159/97 H 100 04/03/17 21:54 108 H 18 159/97 H 100 04/03/17 20:50 105 H 18 165/99 H 96 04/03/17 19:40 105 H 17 163/90 H 95 04/03/17 17:20 97.9 F 98 H 18 160/96 H 93 L Mental Status: Positive for: Confused - Systems Exam Head: Present: Atraumatic, Normocephalic Extroacular Muscles: Present: EOMI Mouth: Present: Dry Neck: Present: Normal Range of Motion Respiratory/Chest: Present: Clear to Auscultation. No: Accessory Muscle Use, Rales, Rhonchi Cardiovascular: Present: Normal S1, S2, Tachycardic. No: Murmurs, Rub, Gallop Abdomen: No: Tenderness, Distention, Peritoneal Signs Upper Extremity: Present: Normal Inspection Lower Extremity: Present: Normal Inspection Neurological: Present: Other (speech aphasia, follows simple commands). No: Speech Normal, Motor Func Grossly Intact (right sided hemiparesis), Gait Normal Skin: Present: Warm, Dry, Normal Color Psychiatric: Present: Alert. No: Oriented x 3 (oriented to person, not place or time) Medical Decision Making ED Course and Treatment: 04/03/17 18:06 Assessment: 66 yo M with PMH CVA w/ residual R sided weakness, HTN, depression, pneumonia presents to Emergency department with AMS. Plan: - CBC - CMP - Trop - Lipase - Chest X-ray - Head CT - Urinalysis - 500 cc NS bolus - TSH 04/03/17 18:40 Chest X-ray read by myself shows possible RLL infiltrate, possible PNA 04/03/17 19:35 Activated code sepsis at 7:35 pm due to elevated lactate, tachycardic, leukocytosis. CMP showed AG 21. Urinalysis showed many bacteria, yeast, no leuk esterase or nitrates. 04/03/17 19:[address] Whitman and requests patient be admitted to hospitalist service. Spoke to Dr. Miller, he accepts patient under hospitalist service. Spoke to resident, made aware of admission. 04/03/17 20:30 CT head without contrast showed right frontal periventricular region, new hyperdense area of hemorrhage or hemorrhagic mass measuring 1.4x1.2x1.1cm. A new subcentimeter hyperdense focus of hemorrhage or hemorrhagic lesion is visualized within the right anterior jakub. Stable areas of hypodense. 04/03/17 20:[address] Osuna, made aware consult. He recommends Keppra 750 mg IVPB, CT in AM, MRI without contrast. Hold Aspirin or any other anticoaguation. Spoke with Dr. Adams, discussed CT findings, does not recommend neurosurgical consult. Spoke with Dr. Geiger, he accepts patient to ICU. - Critical Care Critical Care Minutes: 60 minutes Critical Care Time: Excluding Proc Time - Lab Interpretations Lab Results: 04/03/17 18:30 04/03/17 18:30 Lab Results 04/03/17 19:00: pO2 84 H, VBG pH 7.35, VBG pCO2 39.0 L, VBG HCO3 21.5, VBG Total CO2 22.7, VBG O2 Sat (Calc) 98.7 H, VBG Base Excess -3.8 L, VBG Potassium 10.5 H*, Glucose 126 H, Lactate 4.1 H*, FiO2 21.0, Sodium 128.0 L, Chloride 101.0, Venous Blood Potassium 10.5 H* 04/03/17 19:00: Urine Color Yellow, Urine Appearance Clear, Urine pH 5.5, Ur Specific [place] >= 1.030, Urine Protein 100 H, Urine Glucose (UA) Negative, Urine Ketones Negative, Urine Blood Negative, Urine Nitrate Negative, Urine Bilirubin Negative, Urine Urobilinogen 0.2, Ur Leukocyte Esterase Negative, Urine RBC 0 - 2, Urine WBC 1 - 3, Ur Epithelial Cells 0 - 2, Amorphous Sediment Few, Urine Bacteria Many, Coarse Granular Casts Trace H, Urine Other Uyeast 04/03/17 18:30: PT 13.4 H, INR 1.17 H, APTT 27.6 04/03/17 18:30: TSH 3rd Generation 1.44 04/03/17 18:30: Sodium 147, Potassium 3.4 L, Chloride 103, Carbon Dioxide 23, Anion Gap 24 H, BUN 26 H, Creatinine 1.3, Est GFR ( Amer) > 60, Est GFR ( Non-Af Amer) 56, Random Glucose 124 H, Calcium 10.5, Total Bilirubin 2.4 H, AST 69 H D, ALT 46, Alkaline Phosphatase 143 H D, Troponin I 0.04 D, Total Protein 9.5 H, Albumin 4.6, Globulin 4.9, Albumin/Globulin Ratio 0.9 L, Lipase 83 04/03/17 18:30: WBC 14.5 H D, RBC 5.38, Hgb 14.6, Hct 44.0, MCV 81.8, MCH 27.1, MCHC 33.2, RDW 15.3 H, Plt Count 154, MPV 11.4 H, Gran % 80.6 H, Lymph % (Auto) 8.1 L, Wilkin % (Auto) 11.1 H, Eos % (Auto) 0.0 L, Baso % (Auto) 0.2, Gran # 11.70 H, Lymph # (Auto) 1.2, Wilkin # (Auto) 1.6 H, Eos # (Auto) 0.0, Baso # (Auto ) 0.03 - RAD Interpretation Radiology Orders: 04/03/17 17:35 HEAD W/O CONTRAST [CT] Stat 04/03/17 17:36 CHEST PORTABLE [RAD] Stat - EKG Interpretation EKG Interpretation (Text): 04/03/17 18:09 Sinus rhythm with PAC, possible left atrial enlargement, LAD, pulmonary disease pattern, Nonsepcific ST and T wave abnormality Interpreted by ED Physician: Yes Type: 12 lead EKG Comparison: Com.w/previous EKG - Medication Orders Current Medication Orders: Hydralazine HCl (Apresoline) 10 mg IVP Q6 PRN PRN Reason: SBP>170 Sodium Chloride (Sodium Chloride 0.9%) 1,000 mls @ 100 mls/hr IV .Q10H JONATHAN Last Admin: 04/03/17 20:04 Dose: 100 mls/hr eMAR Start Stop Document 04/03/17 20:04 OCS (Rec: 04/03/17 20:04 OCS [email or web address]) Intravenous Solution Start Date 04/03/17 Start Time 20:04 Azithromycin (Zithromax 500mg In Ns) 500 mg in 250 mls @ 167 mls/hr IVPB DAILY JONATHAN PRN Reason: Protocol Last Admin: 04/03/17 20:25 Dose: 167 mls/hr eMAR Start Stop Document 04/03/17 20:25 AD (Rec: 04/03/17 20:42 AD [id number]) Intravenous Solution Start Date 04/03/17 Start Time 20:25 Levetiracetam 750 mg/ Sodium (Chloride) 107.5 mls @ 460 mls/hr IV Q12 JONATHAN Ampicillin Sodium/Sulbactam (Sodium 3 gm/ Sodium Chloride) 100 mls @ 100 mls/ hr IVPB Q6H JONATHAN PRN Reason: Protocol Discontinued Medications Sodium Chloride (Sodium Chloride 0.9%) 500 mls @ 999 mls/hr IV .Q31M STA Stop: 04/03/17 18:34 Last Admin: 04/03/17 18:55 Dose: 999 mls/hr eMAR Start Stop Document 04/03/17 18:55 SF (Rec: 04/03/17 18:56 [email or web address] Intravenous Solution Start Date 04/03/17 Start Time 18:55 End Date 04/03/17 End time 19:25 Total Infusion Time 30 Ceftriaxone Sodium (Rocephin 2 Gm Ivpb) 2 gm in 100 mls @ 100 mls/hr IVPB DAILY JONATHAN PRN Reason: Protocol Azithromycin (Zithromax 500mg In Ns) 500 mg in 250 mls @ 167 mls/hr IVPB DAILY JONATHAN PRN Reason: Protocol Potassium Chloride (Potassium Chloride 20 Meq/100 Ml) 20 meq in 100 mls @ 50 mls/hr IVPB ONCE ONE Stop: 04/03/17 21:51 Last Admin: 04/03/17 20:03 Dose: 50 mls/hr eMAR Start Stop Document 04/03/17 20:03 OCS (Rec: 04/03/17 20:03 OCS [email or web address]) Intravenous Solution Start Date 04/03/17 Start Time 20:03 End Date 04/03/17 End time 22:03 Total Infusion Time 120 Disposition/Present on Arrival - Present on Arrival Any Indicators Present on Arrival: No History of DVT/PE: No History of Uncontrolled Diabetes: No Urinary Catheter: No History of Decub. Ulcer: Yes History Surgical Site Infection Following: None - Disposition Have Diagnosis and Disposition been Completed?: Yes Diagnosis: Altered mental status, Intracerebral hemorrhage, At risk for sepsis, Pneumonia , Dehydration Disposition: HOSPITALIZED Disposition Time: 20:56 Patient Plan: ICU Patient Problems: Current Active Problems Problem Status Onset Altered mental status Acute At risk for sepsis Acute Dehydration Acute Intracerebral hemorrhage Acute Pneumonia Acute Condition: CRITICAL
[2017-04-03] MEDS ORDERED: Sodium Chloride 0.9% 500 ML IV STA (18:04)
[2017-04-03 18:37] LABS: BASO # 0.03 K/mm3 (0.0-2.0); BASO % 0.2 % (0.0-3.0); GRAN # 11.7 (1.4-6.5); GRAN % 80.6 % (50.0-68.0); HEMOGLOBIN 14.6 g/dL (14.0-18.0); LYMPH # 1.2 (1.2-3.4); LYMPH % 8.1 % (22.0-35.0); MEAN CELL VOLUME 81.8 fl (80.0-105.0); MEAN CORPUSCULAR HEMOGLOBIN 27.1 pg (25.0-35.0); MEAN CORPUSCULAR HGB CONC 33.2 g/dl (31.0-37.0); MEAN PLATELET VOLUME 11.4 fl (7.0-11.0); MONO # 1.6 (0.1-0.6); MONO % 11.1 % (1.0-6.0); RBC 5.38 10^6/uL (3.5-6.1); RED CELL DISTRIBUTION WIDTH 15.3 % (11.5-14.5); WHITE BLOOD COUNT 14.5 10^3/ul (4.5-11.0)
[2017-04-03 18:44] LABS: ALB/GLOB RATIO 0.9 (1.1-1.8); ALBUMIN 4.6 g/dL (3.0-4.8); ALT/SGPT 46 U/L (7-56); AST/SGOT 69 U/L (17-59); BLOOD UREA NITROGEN 26 mg/dL (7-21); CALCIUM 10.5 mg/dL (8.4-10.5); GFR AFRICAN-AMERICAN > 60; GFR NON-AFRICAN AMERICAN 56; LIPASE 83 U/L (23-300)
[2017-04-03 18:56] LABS: TROPONIN I 0.04 ng/mL
[2017-04-03] MEDS ORDERED: Potassium Chloride 20 mEq ER Tab PO STA (18:56)
[2017-04-03] MEDS ORDERED: Potassium Chloride 20 mEq/15 ml LIQ UD PO STA (19:16)
[2017-04-03 19:18] LABS: VENOUS BLOOD GAS BASE EXCESS -3.8 mmol/L (0.0-2.0); VENOUS BLOOD GAS PO2 84 mm/Hg (30-55); VENOUS BLOOD PH 7.35 (7.32-7.43)
[2017-04-03 19:23] LABS: INR 1.17 (0.93-1.08); PARTIAL THROMBOPLASTIN TIME 27.6 Seconds (25.1-36.5); PROTHROMBIN TIME 13.4 SECONDS (9.4-12.5)
[2017-04-03 19:28] LABS: PH,URINE 5.5 (4.7-8.0); URINE APPEARANCE CLEAR (CLEAR); URINE BILIRUBIN NEGATIVE (NEGATIVE); URINE BLOOD NEGATIVE (NEGATIVE); URINE COLOR YELLOW (YELLOW); URINE GLUCOSE (UA) NEGATIVE (NEGATIVE); URINE LEUKOCYTE ESTERASE NEGATIVE Leu/uL (NEGATIVE); URINE NITRATE NEGATIVE (NEGATIVE); URINE PROTEIN 100 mg/dL (<30 mg/dL); URINE UROBILINOGEN 0.2 E.U./dL (<1 E.U./dL)
[2017-04-03 19:31] LABS: URINE BACTERIA MANY (NEG); URINE EPITHELIAL CELLS 0 - 2 /hpf (0-5); URINE RBC 0 - 2 /hpf (0-2)
[2017-04-03 19:32] LABS: URINE AMORPHOUS SEDIMENT FEW; URINE COARSE GRANULAR CAST TRACE /hpf (0-2)
[2017-04-03] MEDS: Sodium Chloride 0.9% 1,000 ML IV SCH (20:04)
--- NOTE | 2017-04-03 20:26 | CT ---
EXAM: CT Head Without Intravenous Contrast EXAM DATE/TIME: 04/03/2017 5:35 PM CLINICAL HISTORY: The patient age is 66 years old and is male; Signs and symptoms; Altered mental status/memory loss; Other: Not speciied; Patient HX: HX CVA with right sided weakness; Additional info: [facility] Facility exam id and description: Ct heads head w/o contrast TECHNIQUE: Axial computed tomography images of the head/brain without intravenous contrast. All CT scans at this facility use one or more dose reduction techniques, viz.: automated exposure control; ma/kV adjustment per patient size (including targeted exams where dose is matched to indication; i.e. head); or iterative reconstruction technique. Coronal and sagittal reformatted images were created and reviewed. COMPARISON: CT - HEAD W/O CONTRAST 2016-11-02 16:34 FINDINGS: Brain: In the right frontal periventricular region and projecting into the ventricle, there is a new hyperdense area of hemorrhage or hemorrhagic mass measuring 1.4 x 1.2 x 1.1 cm. A new subcentimeter hyperdense focus of hemorrhage or hemorrhagic lesion is visualized within the right anterior jakub. Stable areas of hypodense encephalomalacia are visualized within the left thalamus and basal ganglia. There is extensive cerebral white matter hypodensity, likely representing small vessel ischemic disease in a patient this age. Stable increased density is identified within the left basal ganglia, with a few additional foci of increased density in the right thalamus. Given the stability, this is suggestive of calcification. A small stable hypodense chronic lacunar infarct is visualized within the right basal ganglia. The acuity of the white matter disease is indeterminate. The white-lazo differentiation is otherwise preserved. There is stable prominence of the ventricles and sulci, compatible with atrophy. Brainstem: Hyperdensity is visualized within the medulla, contributed at least in part by artifact. Hemorrhage cannot be excluded. Midline shift: There is no midline shift. Ventricles: See above. Bones/joints: The calvarium demonstrates no evidence for a depressed fracture. Soft tissues: No acute abnormality. Vasculature: There is atherosclerotic calcification of the cavernous internal carotid arteries and distal vertebral arteries. Sinuses: Unremarkable as visualized. No acute sinusitis. Mastoid air cells: No mastoid effusion. IMPRESSION: 1. In the right frontal periventricular region and projecting into the ventricle, there is a new hyperdense area of hemorrhage or hemorrhagic mass measuring 1.4 x 1.2 x 1.1 cm. A new subcentimeter hyperdense focus of hemorrhage or hemorrhagic lesion is visualized within the right anterior jakub. 2. Stable areas of hypodense encephalomalacia are visualized within the left thalamus and basal ganglia. 3. There is extensive cerebral white matter hypodensity, likely representing small vessel ischemic disease in a patient this age. 4. Stable atrophy. 5. Hyperdensity is visualized within the medulla, contributed at least in part by artifact. Hemorrhage cannot be excluded. 6. If further evaluation is clinically indicated, an MRI of the brain with/without contrast is recommended.
[2017-04-03] MEDS ORDERED: cefTRIAXone 2 GM IN NS 2 GM/100 ML BAG IVPB SCH (20:31)
[2017-04-03] MEDS ORDERED: Azithromycin 500MG/NS 250ml 500 MG/250 ML BAG IVPB SCH (20:45)
--- NOTE | 2017-04-03 21:14 | CP.PCM.HP ---
<Urban Osheahollie - Last Filed: 04/03/17 21:10> History of Present Illness - History of Present Illness History of Present Illness: H/P note for Dr. Fely Oshea DO, PGY - 1 CC: Altered Mental Status HPI: 66 year old male with past medical history of seizures, CVA w/ residual aphasia and R sided weakness, HTN, Atrial Fibrillation which is rate and ? rhythm controlled not on anti-coagulation, presented with altered mental status. Patient's nuclear waste management engineer called EMS because patient was found slumped over on his toilet seat, and was reacting inappropriately to her questions. Patient was last at baseline a couple of days ago, and is usually alert and oriented X 3. Past Surgical History: Denies Past Medical History: Seizures, CVA w/ residual aphasia and R sided weakness , HTN, Atrial Fibrillation which is rate and ? rhythm controlled not on anti- coagulation Allergies: NKDA Social History: Occasional alcohol and tobacco; denies illicits Hospitalizations: June 2016 for Atrial Fibrillation with RVR and Seizures Family History: Non-contributory Medications: Keppra, Verapamil, MV, Lisinopril, Cymbalta, Cyproheptadine, Lipitor, Atenolol, ASA PMD: Dr. Whitman Pharm[place] [facility] [place] Insurance: [facility] Plan Medicaid Review of Systems: 12 point ROS elicited but unobtainable secondary to patient's mental status Present on Admission - Present on Admission Any Indicators Present on Admission: No Past Patient History - Infectious Disease Hx of Infectious Diseases: None - Tetanus Immunizations Tetanus Immunization: Unknown - Past Medical History & Family History Past Medical History?: Yes - Past Social History Smoking Status: Former Smoker - CARDIAC Hx Cardiac Disorders: Yes (mi) Hx Hypertension: Yes - PULMONARY Hx Pneumonia: Yes - NEUROLOGICAL HX Cerebrovascular Accident: Yes (R sided weakness, dysarthria) - HEENT Hx HEENT Problems: Yes (impairred speech) - RENAL Hx Chronic Kidney Disease: No - ENDOCRINE/METABOLIC Hx Endocrine Disorders: No - HEMATOLOGICAL/ONCOLOGICAL Hx Blood Disorders: No - INTEGUMENTARY Other/Comment: healed sacral wound, mult discolorations ble - MUSCULOSKELETAL/RHEUMATOLOGICAL Hx Falls: Yes - GASTROINTESTINAL Hx Gastrointestinal Disorders: No - GENITOURINARY/GYNECOLOGICAL Hx Genitourinary Disorders: No - PSYCHIATRIC Hx Psychophysiologic Disorder: Yes Hx Depression: Yes Hx Substance Use: No - SURGICAL HISTORY Hx Abdominal Aortic Aneurysm Repair: No - ANESTHESIA Hx Anesthesia: Yes Hx Anesthesia Reactions: No Hx Malignant Hyperthermia: No Meds Allergies/Adverse Reactions: Allergies Allergy/AdvReac Type Severity Reaction Status Date / Time No Known Allergies Allergy Verified 04/03/17 17:24 Physical Exam - Additional Findings Additional findings: Physical Exam: Vital Signs as below Const'l: +Slurred speech; awake alert & oriented x 1: no acute distress Head/Neck: neck supple, no jvd, trachea midline, carotid midline, no cervical/head mass Eyes: pupils equally reactive to light and accommodation, nonicteric sclera, extraocular intact ENT: auditory acuity grossly intact, throat not congested, no nasal deformity Cardio: regular rate, regular rhythm, no murmurs rubs gallops, no carotid bruit, normal s1, s2 Pulm: +R sided decreased breath sounds in Right lower lobe; no accessory muscle use, clear to ausculation bilaterally Abd: soft non tender non-distended, normal bowel sounds x 4 quadrants, no palpable masses Derm: no rashes, no ulcers, no lesions Extr: no edema, no cyanosis, no calf tenderness, no lesions, no varicosities Neuro: +R sided weakness upper and lower extremities; cranial nerves II- XII grossly intact, upper extremity and lower extremity 5/5 muscle strength left side, no loss of sensation in upper extremities, lower extremities bilaterally Results - Vital Signs Recent Vital Signs: Last Vital Signs Temp 97.9 F 04/03/17 17:20 Pulse 105 H 04/03/17 20:50 Resp 18 04/03/17 20:50 BP 165/99 H 04/03/17 20:50 Pulse Ox 96 04/03/17 20:50 - Labs Result Diagrams: 04/03/17 18:30 04/03/17 18:30 Assessment & Plan - Assessment and Plan (Free Text) Assessment: 66 year old male with past medical history of seizures, CVA w/ residual aphasia and R sided weakness, HTN, Atrial Fibrillation which is rate and ? rhythm controlled not on anti-coagulation is presenting with altered mental status. CT Head shows possible R sided jakub hemorrhage, Chest XR shows Right lower lobe infiltrate, review of vitals and labs show 2 SIRS criteria with HR>90 and leukocytosis, and patient meets criteria for severe sepsis with added source of infection being a right sided pneumonia and elevated lactate at 4.1 Plan: Possible intracerebral hemorrhage - Neuro on consult, recommends Keppra 750 mg IVPB, CT in AM, MRI without contrast. Hold ASA and other anticoagulation F/U AM CT and MRI (already ordered) - Neurosurgery Dr. Sanders spoken to, no neurosurgery intervention - Head of bed elevation to 30 degrees, Keep SBP < 170, Keep blood sugars 140-180 - Neuro checks q1h, Aspiration Precautions q1h, Seizure precautions q1h Sepsis, likely 2/2 Pneumonia - Procal ordered, pending - Rpt VBG Shock ordered for 3:30A - Azithromycin and Unasyn - Aspiration precautions Atrial Fibrillation - Rate controlled: Atenolol - Rhythm controlled: Verapamil - HASBLED of 4, no NOAC agents - Hold ASA HTN - Continue Lisinopril daily - Added Hydralazine 10 q6 PRN for SBP >170 AM Labs - CBC, CMP ordered until 04/13 - Mg, Phos ordered until 04/06 GI/DVT Prophylaxis - SCD's - MAKE SURE TO HOLD ANTICOAGULATION - Protonix IVP Dispo: Patient has been accepted as an ICU patient <Fely MICHAEL,Ramo - Last Filed: 04/05/17 11:09> Results - Vital Signs Recent Vital Signs: Last Vital Signs Temp 97.9 F 04/05/17 05:37 Pulse 100 H 04/05/17 06:30 Resp 22 04/05/17 06:30 BP 151/90 H 04/05/17 06:00 Pulse Ox 94 L 04/05/17 06:30 - Labs Result Diagrams: 04/04/17 04:00 04/04/17 04:00 Labs: Laboratory Results - last 24 hr 04/04/17 04/04/17 04:00 04:00 Procalcitonin 1.14 H Hepatitis A IgM Ab Negative Hep Bs Antigen Negative Hep B Core IgM Ab Negative Hepatitis C Antibody Reactive Attending/Attestation - Attestation I have personally seen and examined this patient.: Yes I have fully participated in the care of the patient.: Yes I have reviewed all pertinent clinical information: Yes Notes (Text): -I agree with the above H&P completed by the resident physician with the following additions and/or changes: -The patient is a 66 year old man with a history of CVA (with residual right- sided hemiparesis and aphasia), HTN, paroxysmal atrial fibrillation and seizure disorder who is being admitted to the ICU with acute ICH and Sepsis/SIRS due to aspiration PNA. The ED physician already spoke with on-call neurosurgeon who doesn't feel the patient is a candidate for surgical intervention. Neurology has also been consulted. The patient will be placed on fall and seizure precautions and HOB>30 degrees. Neuro checks Q1 hours. Of course, we will hold all anti-platelet and anticoagulation meds. His BP will be monitored closely. He will be started on empiric antibiotics (including anaerobic coverage, given concern for possible aspiration PNA). A procalcitonin has also been ordered.
[2017-04-03 23:04] LABS: MAGNESIUM 1.9 mg/dL (1.7-2.2); VENOUS BLOOD GAS BASE EXCESS -0.2 mmol/L (0.0-2.0); VENOUS BLOOD GAS PO2 54 mm/Hg (30-55); VENOUS BLOOD PH 7.37 (7.32-7.43)
[2017-04-04] MEDS ORDERED: Piperacillin/Tazobact 3.375 gm 100 ML IVPB STA (00:40)
[2017-04-04] MEDS: Vancomycin 1gm in NS 250ml 1 GM/250 ML BAG IVPB SCH ×2 (00:57→12:07)
[2017-04-04 04:16] LABS: VENOUS BLOOD GAS PO2 40 mm/Hg (30-55); VENOUS BLOOD PH 7.38 (7.32-7.43)
[2017-04-04 04:20] LABS: BASO # 0.03 K/mm3 (0.0-2.0); BASO % 0.2 % (0.0-3.0); GRAN # 12.39 (1.4-6.5); GRAN % 74.5 % (50.0-68.0); HEMOGLOBIN 12.2 g/dL (14.0-18.0); LYMPH % 12.3 % (22.0-35.0); MEAN CELL VOLUME 81.4 fl (80.0-105.0); MEAN CORPUSCULAR HEMOGLOBIN 26.3 pg (25.0-35.0); MEAN CORPUSCULAR HGB CONC 32.4 g/dl (31.0-37.0); MEAN PLATELET VOLUME 12.2 fl (7.0-11.0); MONO # 2.2 (0.1-0.6); RBC 4.63 10^6/uL (3.5-6.1); RED CELL DISTRIBUTION WIDTH 14.9 % (11.5-14.5); WHITE BLOOD COUNT 16.6 10^3/ul (4.5-11.0)
[2017-04-04 04:40] LABS: LDL CHOLESTEROL 37 mg/dL (0-129)
[2017-04-04 04:50] LABS: ALB/GLOB RATIO 0.9 (1.1-1.8); ALBUMIN 3.7 g/dL (3.0-4.8); ALT/SGPT 56 U/L (7-56); AST/SGOT 62 U/L (17-59); BLOOD UREA NITROGEN 20 mg/dL (7-21); CALCIUM 9.4 mg/dL (8.4-10.5); GFR AFRICAN-AMERICAN > 60; GFR NON-AFRICAN AMERICAN > 60; HDL CHOLESTEROL 42 mg/dL (29-60); MAGNESIUM 1.6 mg/dL (1.7-2.2)
[2017-04-04] MEDS ORDERED: Magnesium Sulfate 2 GM in Sodium Chloride 0.9% 100 ML IVPB ONE (07:58)
--- NOTE | 2017-04-04 08:51 | CARD ---
APPROVED REPORT EKG Measurement Heart [id number] <Conclusion> Sinus rhythm Possible Left atrial enlargement Left axis deviation RVCD LVH Nonspecific ST and T wave abnormality
[2017-04-04] MEDS ORDERED: Albuterol-Ipratrop 3 mg / 0.5 (3 ml) UD IH PRN (09:47)
--- NOTE | 2017-04-04 09:48 | RAD ---
HISTORY: AMS COMPARISON: No prior. FINDINGS: LUNGS: Patchy infiltrates seen in the right mid-lower lung field. Mild linear atelectasis and/or scarring left retrocardiac region PLEURA: No significant pleural effusion identified, no pneumothorax apparent. CARDIOVASCULAR: Cardiomegaly. Aorta is ectatic and uncoiled. OSSEOUS STRUCTURES: No significant abnormalities. VISUALIZED UPPER ABDOMEN: Normal. OTHER FINDINGS: None. IMPRESSION: Patchy of right lower lobe infiltrate. . Linear atelectasis and or scarring left retrocardiac region.
[2017-04-04] MEDS ORDERED: Azithromycin 500MG/NS 250ml 500 MG/250 ML BAG IVPB SCH (10:00)
[2017-04-04] MEDS ORDERED: MULTIVITAMIN PO SCH (10:00)
[2017-04-04] MEDS ORDERED: cefTRIAXone 2 GM IN NS 2 GM/100 ML BAG IVPB SCH (10:00)
[2017-04-04] MEDS ORDERED: FOLIC ACID PO SCH (10:00)
[2017-04-04] MEDS ORDERED: [UNRECOGNIZED DRUG - OTHER] PO SCH (10:00)
[2017-04-04] MEDS ORDERED: IRON PO SCH (10:00)
[2017-04-04] MEDS: Verapamil 120 mg ER Tab PO SCH (10:01)
[2017-04-04] MEDS: Multivitamin With Minerals Tab PO SCH (10:06)
--- NOTE | 2017-04-04 10:14 | CP.PCM.PN ---
<Nick Zayas - Last Filed: 04/04/17 10:15> Subjective - Date & Time of Evaluation Date of Evaluation: 04/04/17 Time of Evaluation: 10:12 - Subjective Subjective: Patient seen and examined at bedside. Patient complaining of trouble speaking and worsening of right sided weakness. Patient also admits to having a productive cough. Denies chest pain, shortness of breath, nausea, vomiting, diarrhea, fever, chills, changes in vision. Objective - Vital Signs/Intake and Output Vital Signs (last 24 hours): Temp Pulse Resp BP Pulse Ox 98.8 F 88 30 H 157/71 H 96 04/04/17 08:00 04/04/17 08:20 04/04/17 08:20 04/04/17 08:00 04/04/17 08:20 Intake and Output: 04/04/17 04/04/17 06:59 18:59 Intake Total 1200 Output Total 700 Balance 500 - Medications Medications: Current Medications Albuterol/Ipratropium (Duoneb 3 Mg/0.5 Mg (3 Ml) Ud) 3 ml IH Q2H PRN PRN Reason: Shortness of Breath Atenolol (Tenormin) 50 mg PO DAILY [facility]ONATHAN Atorvastatin Calcium (Lipitor) 20 mg PO DIN JONATHAN Cyproheptadine HCl (Periactin) 4 mg PO HS [facility]ATHAN Duloxetine HCl (Cymbalta) 30 mg PO DAILY [facility]ATH[facility] Gabapentin (Neurontin) 800 mg PO TID JONATHAN Hydralazine HCl (Apresoline) 10 mg IVP Q6 PRN PRN Reason: SBP>170 Last Admin: 04/04/17 05:19 Dose: 10 mg Sodium Chloride (Sodium Chloride 0.9%) 1,000 mls @ 100 mls/hr IV .Q10H JONATHAN Last Admin: 04/03/17 20:04 Dose: 100 mls/hr Levetiracetam 750 mg/ Sodium (Chloride) 107.5 mls @ 460 mls/hr IV Q12 JONATHAN Last Admin: 04/04/17 05:19 Dose: Not Given Vancomycin HCl (Vancomycin 1gm) 1 gm in 250 mls @ 167 mls/hr IVPB Q12H [facility]ONATHAN PRN Reason: Protocol Last Admin: 04/04/17 00:57 Dose: 167 mls/hr Potassium Chloride (Potassium Chloride 20 Meq/100 Ml) 20 meq in 100 mls @ 50 mls/hr IVPB Q2H JONATHAN Stop: 04/04/17 11:59 Last Admin: 04/04/17 08:45 Dose: 50 mls/hr Lisinopril (Zestril) 10 mg PO DAILY [facility] Multivitamins/Minerals (Therapeutic-M Tab) 1 tab PO DAILY [facility] Pantoprazole Sodium (Protonix Inj) 40 mg IVP DAILY JONATHAN Verapamil HCl (Calan Sr Tab) 120 mg PO DAILY JONATHAN - Labs Labs: 04/04/17 04:00 04/04/17 04:00 PT 13.4 SECONDS (9.4-12.5) H 04/03/17 18:30 INR 1.17 (0.93-1.08) H 04/03/17 18:30 APTT 27.6 Seconds (25.1-36.5) 04/03/17 18:30 - Constitutional Appears: Non-toxic, No Acute Distress - Head Exam Head Exam: ATRAUMATIC, NORMAL INSPECTION, NORMOCEPHALIC - Eye Exam Eye Exam: EOMI - ENT Exam ENT Exam: Mucous Membranes Moist - Respiratory Exam Respiratory Exam: Rhonchi, NORMAL BREATHING PATTERN. absent: Rales, Wheezes - Cardiovascular Exam Cardiovascular Exam: RRR, +S1, +S2 - GI/Abdominal Exam GI & Abdominal Exam: Soft, Normal Bowel Sounds. absent: Tenderness - Extremities Exam Extremities Exam: Normal Inspection. 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 CT head shows hemorrhage of the right anterior jakub. Neurology ordering Brain MRI and Neck MRA, will follow up results. Will continue antibiotics for right lower lobe pneumonia. Will continue to monitor closely for any worsening of symptoms. Intracerebral hemorrhage Continue current recommendations of Neuro Follow up scans No surgical intervention HOB elevated to 30 degrees, aspirations precautions Neuro checks q1h Maintain normotension Right lower lobe pneumonia Procal pending Vancomycin and Zosyn given initially Duonebs added ID following, will await recommendations Aspiration precautions Atrial Fibrillation Continue Atenolol and Verapamil Hold ASA HTN Continue Lisinopril daily Maintain normotension GI/DVT Prophylaxis Protonix No anticoagulation due to intracerebral hemorrhage Chana, PGY-2 <Sherin Lambert B - Last Filed: 04/04/17 16:22> Objective - Vital Signs/Intake and Output Vital Signs (last 24 hours): Temp Pulse Resp BP Pulse Ox 98.8 F 84 30 H 157/71 H 96 04/04/17 12:00 04/04/17 14:00 04/04/17 08:20 04/04/17 08:00 04/04/17 08:20 Intake and Output: 04/04/17 04/04/17 06:59 18:59 Intake Total 1200 Output Total 700 Balance 500 - Medications Medications: Current Medications Albuterol/Ipratropium (Duoneb 3 Mg/0.5 Mg (3 Ml) Ud) 3 ml IH Q2H PRN PRN Reason: Shortness of Breath Atenolol (Tenormin) 50 mg PO DAILY [facility] Last Admin: 04/04/17 10:06 Dose: Not Given Atorvastatin Calcium (Lipitor) 20 mg PO DIN JONATHAN Azithromycin (Zithromax) 500 mg PO DAILY [facility]ONATHAN PRN Reason: Protocol Stop: 04/09/17 14:46 Cyproheptadine HCl (Periactin) 4 mg PO HS [facility] Duloxetine HCl (Cymbalta) 30 mg PO DAILY [facility] Last Admin: 04/04/17 10:02 Dose: Not Given Gabapentin (Neurontin) 800 mg PO TID [facility] Last Admin: 04/04/17 14:40 Dose: Not Given Hydralazine HCl (Apresoline) 10 mg IVP Q6 PRN PRN Reason: SBP>170 Last Admin: 04/04/17 05:19 Dose: 10 mg Sodium Chloride (Sodium Chloride 0.9%) 1,000 mls @ 100 mls/hr IV .Q10H [facility] Last Admin: 04/03/17 20:04 Dose: 100 mls/hr Levetiracetam 750 mg/ Sodium (Chloride) 107.5 mls @ 460 mls/hr IV Q12 [facility] Last Admin: 04/04/17 10:00 Dose: 460 mls/hr Vancomycin HCl (Vancomycin 1gm) 1 gm in 250 mls @ 167 mls/hr IVPB Q12H [facility]ONATH[facility] PRN Reason: Protocol Last Admin: 04/04/17 12:07 Dose: 167 mls/hr Ceftriaxone Sodium (Rocephin 1 Gram Ivpb) 1 gm in 100 mls @ 100 mls/hr IVPB DAILY [facility]ONATH[facility] PRN Reason: Protocol Stop: 04/13/17 14:44 Lisinopril (Zestril) 10 mg PO DAILY [facility]ONATH[facility] Last Admin: 04/04/17 10:07 Dose: Not Given Multivitamins/Minerals (Therapeutic-M Tab) 1 tab PO DAILY [facility]ONATH[facility] Last Admin: 04/04/17 10:06 Dose: Not Given Pantoprazole Sodium (Protonix Inj) 40 mg IVP DAILY [facility] Last Admin: 04/04/17 10:00 Dose: 40 mg Verapamil HCl (Calan Sr Tab) 120 mg PO DAILY [facility] Last Admin: 04/04/17 10:01 Dose: Not Given - Labs Labs: 04/04/17 04:00 04/04/17 04:00 PT 13.4 SECONDS (9.4-12.5) H 04/03/17 18:30 INR 1.17 (0.93-1.08) H 04/03/17 18:30 APTT 27.6 Seconds (25.1-36.5) 04/03/17 18:30 Attending/Attestation - Attestation I have personally seen and examined this patient.: Yes I have fully participated in the care of the patient.: Yes I have reviewed all pertinent clinical information, including history, physical exam and plan: Yes Notes (Text): I have seen and examined the patient at bedside. Agree with the above note with the following additions/ exceptions: Briefly this is 66 year old male with history of seizures, CVA with residual aphasia and R sided weakness, HTN, cerebral amyloid angiopathy, Hep C (known and unsure if its treated or not) and paroxysmal atrial flutter only on aspirin who was brought by the family for AMS and found to have intracerebral hemorrhage. CT head shows hemorrhage of the right anterior jakub. Brain MRI and Neck MRA results pending. Aspirin held. He also reports cough, phlegm production and found to have RLL pneumonia. Patient has leukocytosis, lactic acidosis upon admission (now resolved) and has elevated procalcitonin. He is on vancomycin and zosyn. Maintain euvolemia, euglycemia and normotension. Patient is DNR/DNI. Upon discharge patient will follow up with Dr Whitman. Dr Sherin Lambert
--- NOTE | 2017-04-04 11:18 | PN ---
DATE: 04/04/2017 BUTTER GRADER NOTE SUBJECTIVE: The patient is resting in bed comfortably. No respiratory distress. Continues to have aphasia and right-sided weakness. Does have occasional cough, some congestion. No obvious chest pain or abdominal pain. No diarrhea this morning. PHYSICAL EXAMINATION: VITAL SIGNS: Physical exam note that his temperature is 98.8, his pulse is 88, respirations are 30 and BP is 157/71, O2 saturation is 96%. HEENT: Head is atraumatic, normocephalic. Eyes are reactive to light. Ear, nose and throat seemed to be within normal limits. NECK: His neck is supple. No JVD. No thyroid enlargement. No lymph nodes. HEART: Has regular rate and rhythm. Normal S1, S2. LUNGS: Reveal fairly good breath sounds bilaterally with occasional rhonchi at the bases. ABDOMEN: Soft, nontender, decreased bowel sounds. GENITALIA AND RECTAL: Deferred. MUSCULOSKELETAL: No joint deformities. EXTREMITIES: Reveal no obvious edema. NEUROLOGICALLY: The patient does have aphagia, but follow simple commands. Does have right-sided hemiparesis. LABORATORY DATA: Laboratories note that his white count is 16.6, hemoglobin is 12.2, hematocrit 37.7 with platelets of 143,000. Venous blood gas reveals a pH of 7.38, pCO2 of 45, pO2 of 40. The patient's sodium is 145, potassium 3.1, chloride 107, CO2 of 25 with a BUN of 20, creatinine of 1.1 and a glucose of 95. IMPRESSION: As far as my impression, this patient has acute intracerebral bleed with a history of old cerebrovascular accident and aphasia as well as right hemiparesis. The patient has possible sepsis, but is noted to have a right lower lobe pneumonia, most likely secondary to aspiration. He carries a history of hypertension as well as depression. PLAN: As far as our plan, we will continue with neuro checks. Neurology as well as Neurosurgery had been consulted. The patient is on blood pressure medications of hydralazine and verapamil and is on Keppra and Lipitor. He is getting Neurontin as well as Protonix and is on vancomycin and Zosyn. We will continue to follow closely with neuro checks and continue to treat aggressively along with the other consultants and the primary care doctor. Regan Parrish MD [facility] # [id number]
[2017-04-04] MEDS ORDERED: Gadodiamide 287 MG/ML VIAL (15ML) IV ONE (14:03)
[2017-04-04] MEDS ORDERED: Midazolam 2 MG/2 ML VIAL IVP ONE (14:32)
--- NOTE | 2017-04-04 16:51 | MRI ---
PROCEDURE: MRI BRAIN WITHOUT CONTRAST HISTORY: New hyperdense lesion seen in CT, AMS COMPARISON: Comparison made with CT scans of the brain dated 04/03/2017, 11/02/2016 and MRI of the brain dated 06/02/2016. TECHNIQUE: Multiplanar, multisequence MR images of the brain were obtained without intravenous contrast enhancement. . Note that patient refused to continue study, refused intravenous contrast material and terminated the study. Exam was performed without contrast. Study is further degraded by significant motion artifact. FINDINGS: HEMORRHAGE: Re- demonstrated is a small acute hemorrhage within the right the superior caudate head/ body junction barely visible on T1 sequences. . Tiny suspected subacute hemorrhage in the right anterior jakub also poorly seen. Previously noted multiple (too numerous to count) hemosiderin deposits scattered throughout the cerebral hemispheres, basal ganglia, brainstem and cerebellum are less well seen on this exam due to significant motion artifact. Large area of hemosiderin in the left lateral basal ganglia consistent with an old hemorrhage in this location is also poorly seen. DWI: No evidence of an acute or early subacute infarction diffusion imaging. BRAIN PARENCHYMA: Extensive significant diffuse/confluent chronic white matter ischemic changes extending peripherally into the deep and subcortical white matter both cerebral hemispheres are again noted. Fairly extensive chronic appearing left basal nuclei infarct changes not withstanding the aforementioned hemosiderin along the lateral basal ganglia. Gliosis and Wallerian degeneration left cerebral peduncle. Moderate to significant generalized volume loss. No obvious parenchymal mass or collection. VENTRICLES: No obstructive hydrocephalus. CRANIUM: No obvious calvarial lesions. . Note that the calvarium is seen to better advantage on prior CT scan of the brain. ORBITS: Orbits and contents of poorly seen though appear grossly unremarkable. PARANASAL SINUSES/MASTOIDS: Clear VASCULAR SYSTEM: Visualized major vascular flow voids at skull base appear patent so far as can be determined. At the. OTHER FINDINGS: None. IMPRESSION: Very limited motion degraded study. Note also the patient refused intravenous contrast material and terminated the exam. The small hemorrhages seen in the right superior caudate head/caudate body junction and right anterior jakub are poorly seen due to significant motion artifact. Old hemorrhage left lateral basal ganglia extending superiorly into the left coronal radiata. The numerous hemosiderin deposits scattered throughout both cerebral hemispheres, nuclei including basal nuclei brainstem and cerebellum are less well seen on this exam as compared to prior MRI of the brain 06/02/2016. Significant chronic appearing white matter ischemic and left basal nuclei ischemic changes with gliosis and Wallerian degeneration left cerebral peduncle. Moderate to significant atrophy. Findings discussed with ICU electrical electronics technician physician Dr. Chacko at approximately 4:25 p.m. with written down and read back verification.
[2017-04-04] MEDS: Sodium Chloride 0.9% 1,000 ML IV SCH (17:02)
[2017-04-04] MEDS: cefTRIAXone 1 gm 1 GM/100 ML BAG IVPB SCH (17:03)
--- NOTE | 2017-04-04 17:32 | MRI ---
PROCEDURE: Magnetic Resonance Angiography Brain HISTORY: New hyperdense lesion seen in CT, AMS COMPARISON: Comparison made with the concurrent MRI of the brain and prior CT scan of the brain 04/03/2017. Correlation also made with concurrent MRA of the neck. TECHNIQUE: 3D time of flight MR angiography of the intracranial arteries was performed. Rotating maximum intensity projection images were generated. . Note that study is limited by motion artifact. The distal cerebral vasculature is poorly delineated. FINDINGS: INTERNAL CAROTID ARTERIES: Unremarkable. The skull base, petrous, cavernous and supraclinoid segments are bilaterally widely patient. ANTERIOR CEREBRAL ARTERIES: A1 segments are widely patent. The A2 segments and distal branches poorly visualized due to motion artifact unremarkable, as visualized. MIDDLE CEREBRAL ARTERIES: The proximal on middle cerebral arteries appear patent. Note that the perisylvian branches are poorly seen due to motion artifact. POSTERIOR CIRCULATION: Mild asymmetry of the distal vertebral arteries, left-side of which is larger in caliber/ more dominant than the right. The visualized portions of the basilar artery appear of widely patent. Note that the distal basilar artery and posterior cerebral arteries are poorly seen due to significant motion artifact. ANEURYSM/ VASCULAR MALFORMATIONS: None. OTHER FINDINGS: None. IMPRESSION: Limited study. The proximal internal carotid arteries including the supraclinoid carotids and proximal A1/M1 segments are patent however the distal branches are obscured by motion artifact. Similarly, the distal vertebral arteries and proximal basilar artery patent. The distal on post cerebral arteries poorly seen due to motion.
--- NOTE | 2017-04-04 17:35 | MRI ---
HISTORY: New hyperdense lesion seen in CT, AMS COMPARISON: No prior study available for comparison TECHNIQUE: 2D and 3D [id number] angiography of the neck was performed. Rotating maximum intensity projection images of the cervical carotid and vertebral arteries were generated. The origins of the common carotid arteries were not visualized, which is a limitation inherent to the non-contrast time of flight technique. Note the study is limited by motion artifact with stacking/stairstep artifact resulting in chop the appearance of the cervical circulation on MIP images. The visualized portions of the common carotid arteries, carotid bifurcations and internal carotid arteries appear relatively patent so far as can be seen through the aforementioned significant artifact. No significant stenosis. The vertebral arteries are asymmetric left-sided which is larger in caliber/more dominant than the right felt to represent an anatomic variant. No evidence of occlusion. IMPRESSION: Very limited study demonstrating no evidence of occlusion or significant stenosis so far as can be determined. Consider followup carotid Doppler exam.
--- NOTE | 2017-04-04 17:42 | CP.PCM.CON ---
History of Present Illness - History of Present Illness History of Present Illness: Mr. Escamilla is a 66-year-old man with a past medical history of epilepsy, previous CVA with residual aphasia and right-side hemiplegia, HTN, Atrial Fibrillation (not on anticoagulation), who was brought in for a change in his mental status. Apparently, the patient was found slumped over on the toilet by his laboratory courier, and was not able to respond appropriately when questioned. CT scan of the head showed a right caudate region, subcortical intraparenchymal hemorrhage measuring about 1.5 cm. No significant midline shift. MRI of the brain was subsequently done and demonstrated multiple areas of chronic hemosiderin deposit consistent with recurrent hemorrhage. Review of Systems - Review of Systems Systems not reviewed;Unavailable: Altered Mental Status All systems: reviewed and no additional remarkable complaints except Past Patient History - Infectious Disease Hx of Infectious Diseases: None - Tetanus Immunizations Tetanus Immunization: Unknown - Past Medical History & Family History Past Medical History?: Yes - Past Social History Smoking Status: Former Smoker - CARDIAC Hx Cardiac Disorders: Yes Hx Hypertension: Yes - PULMONARY Hx Pneumonia: Yes - NEUROLOGICAL HX Cerebrovascular Accident: Yes (R weakness, aphasia, dysarthria) - HEENT Hx HEENT Problems: Yes (impairred speech) - RENAL Hx Chronic Kidney Disease: No - ENDOCRINE/METABOLIC Hx Endocrine Disorders: No - HEMATOLOGICAL/ONCOLOGICAL Hx Blood Disorders: No - INTEGUMENTARY Other/Comment: healed sacral wound, mult discolorations ble - MUSCULOSKELETAL/RHEUMATOLOGICAL Hx Falls: Yes - GASTROINTESTINAL Hx Gastrointestinal Disorders: No - GENITOURINARY/GYNECOLOGICAL Hx Genitourinary Disorders: No - PSYCHIATRIC Hx Psychophysiologic Disorder: Yes Hx Depression: Yes - SURGICAL HISTORY Hx Surgeries: No (unknown, denied by home care nurse) - ANESTHESIA Hx Anesthesia: Yes Hx Anesthesia Reactions: No Hx Malignant Hyperthermia: No Meds Allergies/Adverse Reactions: Allergies Allergy/AdvReac Type Severity Reaction Status Date / Time No Known Allergies Allergy Verified 04/03/17 17:24 - Medications Medications: Current Medications Albuterol/Ipratropium (Duoneb 3 Mg/0.5 Mg (3 Ml) Ud) 3 ml IH Q2H PRN PRN Reason: Shortness of Breath Atenolol (Tenormin) 50 mg PO DAILY [facility] Last Admin: 04/04/17 10:06 Dose: Not Given Atorvastatin Calcium (Lipitor) 20 mg PO DIN [facility] Last Admin: 04/04/17 17:03 Dose: 20 mg Azithromycin (Zithromax) 500 mg PO DAILY [facility] PRN Reason: Protocol Stop: 04/09/17 14:46 Last Admin: 04/04/17 17:03 Dose: 500 mg Cyproheptadine HCl (Periactin) 4 mg PO HS [facility] Duloxetine HCl (Cymbalta) 30 mg PO DAILY [facility] Last Admin: 04/04/17 10:02 Dose: Not Given Gabapentin (Neurontin) 800 mg PO TID [facility] Last Admin: 04/04/17 17:04 Dose: 800 mg Hydralazine HCl (Apresoline) 10 mg IVP Q6 PRN PRN Reason: SBP>170 Last Admin: 04/04/17 05:19 Dose: 10 mg Sodium Chloride (Sodium Chloride 0.9%) 1,000 mls @ 100 mls/hr IV .Q10H [facility] Last Admin: 04/04/17 17:02 Dose: 100 mls/hr Levetiracetam 750 mg/ Sodium (Chloride) 107.5 mls @ 460 mls/hr IV Q12 [facility] Last Admin: 04/04/17 10:00 Dose: 460 mls/hr Vancomycin HCl (Vancomycin 1gm) 1 gm in 250 mls @ 167 mls/hr IVPB Q12H [facility] PRN Reason: Protocol Last Admin: 04/04/17 12:07 Dose: 167 mls/hr Ceftriaxone Sodium (Rocephin 1 Gram Ivpb) 1 gm in 100 mls @ 100 mls/hr IVPB DAILY [facility] PRN Reason: Protocol Stop: 04/13/17 14:44 Last Admin: 04/04/17 17:03 Dose: 100 mls/hr Lisinopril (Zestril) 10 mg PO DAILY [facility] Last Admin: 04/04/17 10:07 Dose: Not Given Multivitamins/Minerals (Therapeutic-M Tab) 1 tab PO DAILY [facility] Last Admin: 04/04/17 10:06 Dose: Not Given Pantoprazole Sodium (Protonix Inj) 40 mg IVP DAILY [facility] Last Admin: 04/04/17 10:00 Dose: 40 mg Verapamil HCl (Calan Sr Tab) 120 mg PO DAILY [facility] Last Admin: 04/04/17 10:01 Dose: Not Given Physical Exam - Neurological Exam Additional comments: Alert, Awake, oriented to place and year, but not date. Dysarthric, and mild aphasia. CN 2-12 intact, right facial droop (central), right side hemiplegia, moves left upper extremity proximally and distally with 4/5 strength, left lower extremity with 4/5 distally and 3/5 proximally. Sensation is diminished on the right side with neglect. Plantar responses are upgoing. Results - Vital Signs Recent Vital Signs: Last Vital Signs Temp 99 F 04/04/17 16:00 Pulse 91 H 04/04/17 16:50 Resp 28 H 04/04/17 16:50 BP 163/102 H 04/04/17 16:00 Pulse Ox 96 04/04/17 16:50 - Labs Result Diagrams: 04/04/17 04:00 04/04/17 04:00 Labs: Laboratory Results - last 24 hr 04/03/17 04/03/17 04/04/17 22:50 22:50 04:00 WBC RBC Hgb Hct MCV MCH MCHC RDW Plt Count MPV Gran % Lymph % (Auto) Craig % (Auto) Eos % (Auto) Baso % (Auto) Gran # Lymph # (Auto) Craig # (Auto) Eos # (Auto) Baso # (Auto) pO2 54 VBG pH 7.37 VBG pCO2 44.0 VBG HCO3 25.4 VBG Total CO2 26.8 VBG O2 Sat (Calc) 93.0 H VBG Base Excess -0.2 L VBG Potassium 3.4 L Sodium 142.0 Chloride 107.0 Glucose 105 Lactate 2.5 H FiO2 21.0 Potassium Carbon Dioxide Anion Gap BUN Creatinine Est GFR ( Amer) Est GFR (Non-Af Amer) Random Glucose Calcium Phosphorus 4.0 Magnesium 1.9 Total Bilirubin AST ALT Alkaline Phosphatase Total Protein Albumin Globulin Albumin/Globulin Ratio Triglycerides Cholesterol LDL Cholesterol Direct HDL Cholesterol Procalcitonin 1.14 H Venous Blood Potassium 3.4 L 04/04/17 04/04/17 04/04/17 04:00 04:00 04:00 WBC 16.6 H RBC 4.63 Hgb 12.2 L D Hct 37.7 L MCV 81.4 MCH 26.3 MCHC 32.4 RDW 14.9 H Plt Count 143 MPV 12.2 H Gran % 74.5 H Lymph % (Auto) 12.3 L Craig % (Auto) 13.0 H Eos % (Auto) 0.0 L Baso % (Auto) 0.2 Gran # 12.39 H Lymph # (Auto) 2.0 Craig # (Auto) 2.2 H Eos # (Auto) 0.0 Baso # (Auto) 0.03 pO2 40 VBG pH 7.38 VBG pCO2 45.0 VBG HCO3 26.6 VBG Total CO2 28.0 VBG O2 Sat (Calc) 80.5 H VBG Base Excess 1.0 VBG Potassium 3.1 L Sodium 142.0 145 Chloride 107.0 107 Glucose 92 Lactate 1.7 FiO2 21.0 Potassium 3.1 L Carbon Dioxide 25 Anion Gap 16 BUN 20 Creatinine 1.1 Est GFR ( Amer) > 60 Est GFR (Non-Af Amer) > 60 Random Glucose 95 Calcium 9.4 Phosphorus 3.1 Magnesium 1.6 L Total Bilirubin 2.3 H AST 62 H ALT 56 Alkaline Phosphatase 96 Total Protein 7.7 Albumin 3.7 Globulin 4.0 Albumin/Globulin Ratio 0.9 L Triglycerides 105 Cholesterol 108 L LDL Cholesterol Direct 37 HDL Cholesterol 42 Procalcitonin Venous Blood Potassium 3.1 L Assessment & Plan (1) Altered mental status Assessment and Plan: Likely due to new ICH and concomitant seizure disorder. Will increase Keppra to 750 mg BID and continue management of possible underlying infection. Status: Acute (2) Intracerebral hemorrhage Assessment and Plan: Follow up CT scan of the head in the AM to monitor for possible expansion. Keep HOB elevated to 35-45 degrees. Avoid hyperglycemia and dextrose containing fluids. Avoid hyperthermia. Hold antiplatelet agents and anticoagulation for at least 48 hours. Keep SBP 100-160 mm Hg. SCD for DVT Px. PT/OT eval and treatment. Continue medical management per primary and ICU team. Thank you. Status: Acute
[2017-04-05] MEDS: Vancomycin 1gm in NS 250ml 1 GM/250 ML BAG IVPB SCH ×2 (00:07→13:15)
--- NOTE | 2017-04-05 02:09 | CON ---
DATE: 04/04/2017 LOCATION: The patient seen earlier today in room 129, bed 2. CHIEF COMPLAINT: Weakness x1 day. HISTORY OF PRESENT ILLNESS: This is a 66-year-old male who was seen in the Intensive Care Unit CCU 129, bed 2, was admitted with a chief complaint of weakness and change in mental status with a history of cerebrovascular accident with a right-sided weakness, history of hypertension, depression who also has a history of pneumonia and brought to the emergency room by the personal care attendant for change in mental status and has been having diarrhea at home and no fevers reported. No chills. The patient is a poor historian. No chest pain, shortness of breath or cough. No hemoptysis. PAST MEDICAL HISTORY: Significant for coronary artery disease, myocardial infarction, high cholesterol, hypertension, pneumonia, and cerebrovascular accident with right-sided weakness and depression. PAST SURGICAL HISTORY: Noncontributory. ALLERGIES: THE PATIENT HAS NO KNOWN ALLERGIES. MEDICATIONS AT HOME: Reveals the patient to be on Keppra, verapamil, multivitamins, gabapentin, Cymbalta, atorvastatin, atenolol, aspirin. PHYSICAL EXAMINATION: VITAL SIGNS: The patient is in bed with a temperature of 98, T-max was 102.5 with a heart rate of 89, it was up to a 106 with a blood pressure of 151/71, respiratory rate of 30 with a saturation down to 93%. HEENT: Unremarkable. NECK: Supple. LUNGS: Decreased breath sounds. HEART: Normal S1, S2. ABDOMEN: Soft. LABORATORY DATA: Reveals the patient's white count to be 14,500, hemoglobin of 14, platelets of 154 and coagulation is noted. Chemistries reveals a BUN of 20, creatinine of 1.1. Urinalysis is noted, many bacteria, one to three wbc's. Microbiology is pending. The patient had a chest x-ray which was read by Dr. Ryan Fregoso, patchy infiltrates seen. ASSESSMENT AND PLAN: A 66-year-old male with cerebrovascular accident with right-sided weakness, history of pneumonia, high cholesterol, depression, hypertension, coronary artery disease, myocardial infarction, history of seizures who is admitted with a fever, tachycardia, leukocytosis and infiltrate and hypoxia and change in mental status. Severe sepsis secondary to a community-acquired pneumonia with patient who has had a positive findings on CAT scan of the head, periventricular projection in the frontal ventricle and a new hyperdense area of hemorrhage is noted. Dr. Regan Chacko's note is reviewed. The patient presenting with an intracerebral hemorrhage. Probable right lower lobe aspiration pneumonia. We will treat the patient with ceftriaxone and azithromycin. Pending blood cultures, urine cultures, sputum cultures and procalcitonin, initial workup results for this patient with a [employer] bleed and severe sepsis. We will also check on the MRSA screening. Currently on vancomycin. We will continue the vancomycin pending mays culture results, blood culture results. I doubt endocarditis, pending MRSA screening. The patient has had a hepatitis C positive test in the past. We will also order an HIV' Beny Garcia MD
[2017-04-05] MEDS: Sodium Chloride 0.9% 1,000 ML IV SCH ×3 (04:09→23:20)
[2017-04-05 08:18] LABS: HEPATITIS B SURFACE AG Negative (NEGATIVE)
[2017-04-05 08:24] LABS: HEPATITIS A IGM NEGATIVE (NEGATIVE); HEPATITIS B CORE AB NEGATIVE (NEGATIVE)
--- NOTE | 2017-04-05 09:23 | CP.CCUPN ---
<DamasoAnabel - Last Filed: 04/05/17 10:01> CCU Subjective - Physician Review Subjective (Free Text): 04/05/17 09:47 Patient with no acute events overnight. Remains alert and awake. Patient with baseline expressive aphasia. Patient is refusing labs, and repeat CT ordered by neurologist. Critical Care Time Spent (in minutes): 45 CCU Objective - Vital Signs / Intake & Output Vital Signs (Last 4 hours): Vital Signs Temp Pulse Resp BP Pulse Ox 04/05/17 06:30 100 H 22 94 L 04/05/17 06:20 92 H 34 H 96 04/05/17 06:10 98 H 20 96 04/05/17 06:00 88 28 H 151/90 H 95 04/05/17 05:50 94 H 29 H 94 L 04/05/17 05:40 88 27 H 94 L 04/05/17 05:37 97.9 F 04/05/17 05:30 90 20 83 L Intake and Output (Last 8hrs): Intake & Output 04/04/17 04/05/17 04/05/17 22:59 06:59 14:59 Intake Total 1410 1200 Output Total 800 450 Balance 610 750 Intake: IV 1350 1200 Left Forearm 1350 1200 Oral 60 Output: Urine 800 450 Condom 800 450 Stool 0 - Physical Exam Head: Positive for: Atraumatic, Normocephalic Extroacular Muscles: Positive for: EOMI Mouth: Positive for: Dry Neck: Positive for: Normal Range of Motion Respiratory/Chest: Positive for: Clear to Auscultation. Negative for: Accessory Muscle Use, Rales, Rhonchi Cardiovascular: Positive for: Normal S1, S2. Negative for: Murmurs, Tachycardic , Bradycardic, Rub, Gallop Abdomen: Negative for: Tenderness, Distention, Peritoneal Signs Upper Extremity: Positive for: Normal Inspection Lower Extremity: Positive for: Normal Inspection Neurological: Positive for: Other (speech aphasia, follows simple commands). Negative for: Speech Normal (expressive aphagia. ), Motor Func Grossly Intact ( right sided hemiparesis), Gait Normal Skin: Positive for: Warm, Dry, Normal Color Psychiatric: Positive for: Alert. Negative for: Oriented x 3 (oriented to person and to place.) - Medications Active Medications: Active Medications Generic Name Dose Route Start Last Admin Trade Name Freq PRN Reason Stop Dose Admin Albuterol/Ipratropium 3 ml 04/04/17 09:47 Duoneb 3 Mg/0.5 Mg (3 Ml) Ud IH Q2H PRN Shortness of Breath Atenolol 50 mg 04/04/17 10:00 04/04/17 10:06 Tenormin PO Not Given DAILY JONATHAN Atorvastatin Calcium 20 mg 04/04/17 17:00 04/04/17 17:03 Lipitor PO 20 mg DIN JONATHAN Administration Azithromycin 500 mg 04/04/17 14:45 04/04/17 17:03 Zithromax PO 04/09/17 14:46 500 mg DAILY JONATHAN Administration Protocol Cyproheptadine HCl 4 mg 04/04/17 22:00 04/04/17 22:21 Periactin PO 4 mg HS JONATHAN Administration Duloxetine HCl 30 mg 04/04/17 10:00 04/04/17 10:02 Cymbalta PO Not Given DAILY JONATHAN Gabapentin 800 mg 04/04/17 10:00 04/04/17 17:04 Neurontin PO 800 mg TID JONATHAN Administration Hydralazine HCl 10 mg 04/03/17 21:25 04/04/17 19:54 Apresoline IVP 10 mg Q6 PRN Administration SBP>170 Sodium Chloride 1,000 mls @ 100 mls/hr 04/03/17 20:00 04/05/17 04:09 Sodium Chloride 0.9% IV 100 mls/hr .Q10H JONATHAN Administration Levetiracetam 750 mg/ Sodium 107.5 mls @ 460 mls/hr 04/03/17 20:40 04/04/17 22:19 Chloride IV 460 mls/hr Q12 JONATHAN Administration Vancomycin HCl 1 gm in 250 mls @ 167 mls/hr 04/04/17 00:45 04/05/17 00:07 Vancomycin 1gm IVPB 167 mls/hr Q12H JONATHAN Administration Protocol Ceftriaxone Sodium 1 gm in 100 mls @ 100 mls/hr 04/04/17 14:43 04/04/17 17:03 Rocephin 1 Gram Ivpb IVPB 04/13/17 14:44 100 mls/hr DAILY JONATHAN Administration Protocol Lisinopril 10 mg 04/04/17 10:00 04/04/17 10:07 Zestril PO Not Given DAILY JONATHAN Multivitamins/Minerals 1 tab 04/04/17 10:00 04/04/17 10:06 Therapeutic-M Tab PO Not Given DAILY JONATHAN Pantoprazole Sodium 40 mg 04/04/17 10:00 04/04/17 10:00 Protonix Inj IVP 40 mg DAILY JONATHAN Administration Verapamil HCl 120 mg 04/04/17 10:00 04/04/17 10:01 Calan Sr Tab PO Not Given DAILY JONATHAN - Patient Studies Lab Studies: Microbiology Studies 04/04/17 01:30 Blood Culture - Preliminary Blood-Venous NO GROWTH AFTER 24 HOURS 04/04/17 01:15 Blood Culture - Preliminary Blood-Venous NO GROWTH AFTER 24 HOURS Lab Studies 04/04/17 04/04/17 Range/Units 04:00 04:00 Procalcitonin 1.14 H (0.19-0.49) NG/ML Hepatitis A IgM Ab Negative (NEGATIVE) Hep Bs Antigen Negative (NEGATIVE) Hep B Core IgM Ab Negative (NEGATIVE) Laboratory Results - last 24 hr 04/04/17 04/04/17 04:00 04:00 Procalcitonin 1.14 H Hepatitis A IgM Ab Negative Hep Bs Antigen Negative Hep B Core IgM Ab Negative Results Reviewed to Date: Yes Critical Care Progress Note - Prophylaxis GI Prophylaxis GI: PPI - Prophylaxis DVT Prophylaxis DVT: Not Indicated (hemorrhagic cva.) - Nutrition Nutrition: Nutrition Category Date Time Status NPO Diet [DIET] Diets 04/03/17 Dinner Ordered Assessment/Plan - Assessment and Plan (Free Text) Assessment: Patient is a 66 year old male with past medical history of seizures, CVA w/ residual aphasia and R sided weakness, HTN, and Atrial Fibrillation presents with multiple intracerebral hemorrhage acute and chronic. Patient also had right lower lobe infiltration on chest x-ray likely aspiration versus pneumonia. Plan: Neurology: AMS likely due to multiple small basal ganglia hemorrhages- acute and chronic on MRI. MRA of the head and neck with artifact. HOB elevated to 30 degrees, aspirations precautions Neuro checks q2h, seizure precaution. Maintain normothermia. Pending EEG, Pending repeat CT head. Pulm: Right lower lobe pneumonia supplemental oxygen prn to maintain O2 sat above 95%. Continue bronchodilators Head of bed above 35% degrees Cardiac: h/o afib- Continue Atenolol and Verapamil HTN- Continue Lisinopril daily Maintain normotension ID: Sepsis with pneumonia as the possible source versus aspiration chest x-ray with right lower lobe infiltration Procal was elevated On Zithromax, Rocephin and vanco ID following. Heme: will monitor h/h. Renal: Pending AM lab, will follow up and replete labs. On NS@ 100 cc/hr, will discontinue if patient tolerates diet. Endo: stable, will maintain normoglycemia. GI- on ppi for gi prophylaxis. on puree diet with honey thick. DVT prophylaxis: SCDs. Patient seen, examined and case discussed with the attending. - Date & Time Date: 04/05/17 Time: 10:10 <Robert Wheeler - Last Filed: 04/05/17 11:08> CCU Objective - Vital Signs / Intake & Output Intake and Output (Last 8hrs): Intake & Output 04/04/17 04/05/17 04/05/17 22:59 06:59 14:59 Intake Total 1410 1200 Output Total 800 450 Balance 610 750 Intake: IV 1350 1200 Left Forearm 1350 1200 Oral 60 Output: Urine 800 450 Condom 800 450 Stool 0 - Medications Active Medications: Active Medications Generic Name Dose Route Start Last Admin Trade Name Freq PRN Reason Stop Dose Admin Albuterol/Ipratropium 3 ml 04/04/17 09:47 Duoneb 3 Mg/0.5 Mg (3 Ml) Ud IH Q2H PRN Shortness of Breath Atenolol 50 mg 04/04/17 10:00 04/04/17 10:06 Tenormin PO Not Given DAILY JONATHAN Atorvastatin Calcium 20 mg 04/04/17 17:00 04/04/17 17:03 Lipitor PO 20 mg DIN JONATHAN Administration Azithromycin 500 mg 04/04/17 14:45 04/04/17 17:03 Zithromax PO 04/09/17 14:46 500 mg DAILY JONATHAN Administration Protocol Cyproheptadine HCl 4 mg 04/04/17 22:00 04/04/17 22:21 Periactin PO 4 mg HS JONATHAN Administration Duloxetine HCl 30 mg 04/04/17 10:00 04/04/17 10:02 Cymbalta PO Not Given DAILY JONATHAN Gabapentin 800 mg 04/04/17 10:00 04/04/17 17:04 Neurontin PO 800 mg TID JONATHAN Administration Hydralazine HCl 10 mg 04/03/17 21:25 02/18/18 19:54 Apresoline IVP 10 mg Q6 PRN Administration SBP>170 Sodium Chloride 1,000 mls @ 100 mls/hr 04/03/17 20:00 04/05/17 04:09 Sodium Chloride 0.9% IV 100 mls/hr .Q10H JONATHAN Administration Levetiracetam 750 mg/ Sodium 107.5 mls @ 460 mls/hr 04/03/17 20:40 04/04/17 22:19 Chloride IV 460 mls/hr Q12 JONATHAN Administration Vancomycin HCl 1 gm in 250 mls @ 167 mls/hr 04/04/17 00:45 04/05/17 00:07 Vancomycin 1gm IVPB 167 mls/hr Q12H JONATHAN Administration Protocol Ceftriaxone Sodium 1 gm in 100 mls @ 100 mls/hr 04/04/17 14:43 04/04/17 17:03 Rocephin 1 Gram Ivpb IVPB 04/13/17 14:44 100 mls/hr DAILY JONATHAN Administration Protocol Lisinopril 10 mg 04/04/17 10:00 04/04/17 10:07 Zestril PO Not Given DAILY JONATHAN Multivitamins/Minerals 1 tab 04/04/17 10:00 04/04/17 10:06 Therapeutic-M Tab PO Not Given DAILY JONATHAN Pantoprazole Sodium 40 mg 04/04/17 10:00 04/04/17 10:00 Protonix Inj IVP 40 mg DAILY JONATHAN Administration Verapamil HCl 120 mg 04/04/17 10:00 04/04/17 10:01 Calan Sr Tab PO Not Given DAILY JONATHAN - Patient Studies Lab Studies: Microbiology Studies 04/04/17 01:30 Blood Culture - Preliminary Blood-Venous NO GROWTH AFTER 24 HOURS 04/04/17 01:15 Blood Culture - Preliminary Blood-Venous NO GROWTH AFTER 24 HOURS Lab Studies 04/04/17 04/04/17 Range/Units 04:00 04:00 Procalcitonin 1.14 H (0.19-0.49) NG/ML Hepatitis A IgM Ab Negative (NEGATIVE) Hep Bs Antigen Negative (NEGATIVE) Hep B Core IgM Ab Negative (NEGATIVE) Hepatitis C Antibody Reactive (NEGATIVE) Laboratory Results - last 24 hr 04/04/17 04/04/17 04:00 04:00 Procalcitonin 1.14 H Hepatitis A IgM Ab Negative Hep Bs Antigen Negative Hep B Core IgM Ab Negative Hepatitis C Antibody Reactive Critical Care Progress Note - Nutrition Nutrition: Nutrition Category Date Time Status Pureed [Dysphagia/Modified Consistency Diet] [DIET] Diets 04/05/17 Lunch Ordered Assessment/Plan - Assessment and Plan (Free Text) Plan: Patient seen and examined on rounds with resident, agree with note with following additions/exceptions: Patient is 66yo male with PMhx of CVA with residual R weakness and aphasia, Afib not on A/C, HTN, HLD a/w new ICH, multiple. Currently afebrile, HD stable, comfortable in NAD, refusing labs and CT head, ?competency. Severe sepsis with community-acquired pneumonia Acute ICH history of CVA with right sided weakness HLD CAD HTN Hx of seizures Recommend: - supp o2 as needed - antibiotics as per ID - follow up cultures, procal, sputum culture, Urine Lg, Strep - BP control, SBP<140 - repeat CBC, CMP - CT head repeat as per neuro - ECHO - neuro checks, aspiration precaution, maintain euthermia, - FS control - EEG - IVF hydration - speech swallow eval - GI ppx, PPI - DVT ppx, SCDs - monitor in MICU
[2017-04-05 09:50] LABS: HEPATITIS C ANTIBODY REACTIVE (NEGATIVE)
--- NOTE | 2017-04-05 10:22 | CP.PCM.PN ---
Subjective - Date & Time of Evaluation Date of Evaluation: 04/05/17 Time of Evaluation: 09:40 - Subjective Subjective: Patient is complaining of something that he needs from home, no fevers overnight , no headache, breathing ok. Objective - Vital Signs/Intake and Output Vital Signs (last 24 hours): Temp Pulse Resp BP Pulse Ox 97.9 F 100 H 22 151/90 H 94 L 04/05/17 05:37 04/05/17 06:30 04/05/17 06:30 04/05/17 06:00 04/05/17 06:30 Intake and Output: 04/04/17 04/05/17 18:59 06:59 Intake Total 1410 1200 Output Total 800 450 Balance 610 750 - Medications Medications: Current Medications Albuterol/Ipratropium (Duoneb 3 Mg/0.5 Mg (3 Ml) Ud) 3 ml IH Q2H PRN PRN Reason: Shortness of Breath Atenolol (Tenormin) 50 mg PO DAILY [facility] Last Admin: 04/04/17 10:06 Dose: Not Given Atorvastatin Calcium (Lipitor) 20 mg PO DIN [facility] Last Admin: 04/04/17 17:03 Dose: 20 mg Azithromycin (Zithromax) 500 mg PO DAILY [facility] PRN Reason: Protocol Stop: 04/09/17 14:46 Last Admin: 04/04/17 17:03 Dose: 500 mg Cyproheptadine HCl (Periactin) 4 mg PO HS [facility] Last Admin: 04/04/17 22:21 Dose: 4 mg Duloxetine HCl (Cymbalta) 30 mg PO DAILY [facility] Last Admin: 04/04/17 10:02 Dose: Not Given Gabapentin (Neurontin) 800 mg PO TID [facility] Last Admin: 04/04/17 17:04 Dose: 800 mg Hydralazine HCl (Apresoline) 10 mg IVP Q6 PRN PRN Reason: SBP>170 Last Admin: 04/04/17 19:54 Dose: 10 mg Sodium Chloride (Sodium Chloride 0.9%) 1,000 mls @ 100 mls/hr IV .Q10H [facility] Last Admin: 04/05/17 04:09 Dose: 100 mls/hr Levetiracetam 750 mg/ Sodium (Chloride) 107.5 mls @ 460 mls/hr IV Q12 [facility] Last Admin: 04/04/17 22:19 Dose: 460 mls/hr Vancomycin HCl (Vancomycin 1gm) 1 gm in 250 mls @ 167 mls/hr IVPB Q12H [facility]ONATH[facility] PRN Reason: Protocol Last Admin: 04/05/17 00:07 Dose: 167 mls/hr Ceftriaxone Sodium (Rocephin 1 Gram Ivpb) 1 gm in 100 mls @ 100 mls/hr IVPB DAILY JONATHAN PRN Reason: Protocol Stop: 04/13/17 14:44 Last Admin: 04/04/17 17:03 Dose: 100 mls/hr Lisinopril (Zestril) 10 mg PO DAILY [facility] Last Admin: 04/04/17 10:07 Dose: Not Given Multivitamins/Minerals (Therapeutic-M Tab) 1 tab PO DAILY [facility] Last Admin: 04/04/17 10:06 Dose: Not Given Pantoprazole Sodium (Protonix Inj) 40 mg IVP DAILY [facility] Last Admin: 04/04/17 10:00 Dose: 40 mg Verapamil HCl (Calan Sr Tab) 120 mg PO DAILY [facility] Last Admin: 04/04/17 10:01 Dose: Not Given - Labs Labs: 04/04/17 04:00 04/04/17 04:00 PT 13.4 SECONDS (9.4-12.5) H 04/03/17 18:30 INR 1.17 (0.93-1.08) H 04/03/17 18:30 APTT 27.6 Seconds (25.1-36.5) 04/03/17 18:30 - Constitutional Appears: Chronically Ill - Head Exam Head Exam: NORMAL INSPECTION - Neck Exam Neck Exam: absent: Meningismus - Respiratory Exam Respiratory Exam: Decreased Breath Sounds - Cardiovascular Exam Cardiovascular Exam: +S1, +S2 - GI/Abdominal Exam GI & Abdominal Exam: Soft. absent: Tenderness Assessment and Plan - Assessment and Plan (Free Text) Plan: Assessment Severe sepsis with community-acquired pneumonia acute periventricular hemorrhage history of CVA with right sided weakness dyslipidemia depression history of pneumonia CAD HTN history of seizures Plan Continue Vancomycin, Rocephin and Zithromax day 2 pending final cultures continue to monitor fever curve follow up MRSA nares follow up HIV test
[2017-04-05] MEDS: Verapamil 120 mg ER Tab PO SCH (10:49)
[2017-04-05] MEDS: Multivitamin With Minerals Tab PO SCH (10:55)
[2017-04-05] MEDS: cefTRIAXone 1 gm 1 GM/100 ML BAG IVPB SCH (10:58)
--- NOTE | 2017-04-05 12:36 | CP.PCM.PN ---
Subjective - Date & Time of Evaluation Date of Evaluation: 04/05/17 Time of Evaluation: 10:00 - Subjective Subjective: Neuro progress note: Pt seen and examined at bedside. No acute events overnight. Pt currently still aphasic, dysarthric and has word salad in his speech. He also has R sided hemiplegia from prior strokes?. Minimally following commands. 12 Point ROS performed but limited due to patients stroke Objective - Vital Signs/Intake and Output Vital Signs (last 24 hours): Temp Pulse Resp BP Pulse Ox 97.9 F 93 H 22 110/78 94 L 04/05/17 05:37 04/05/17 11:03 04/05/17 06:30 04/05/17 10:49 04/05/17 06:30 Intake and Output: 04/05/17 04/05/17 06:59 18:59 Intake Total 1200 Output Total 450 Balance 750 - Medications Medications: Current Medications Albuterol/Ipratropium (Duoneb 3 Mg/0.5 Mg (3 Ml) Ud) 3 ml IH Q2H PRN PRN Reason: Shortness of Breath Atenolol (Tenormin) 50 mg PO DAILY [facility] Last Admin: 04/05/17 10:55 Dose: 50 mg Atorvastatin Calcium (Lipitor) 20 mg PO DIN [facility] Last Admin: 04/04/17 17:03 Dose: 20 mg Azithromycin (Zithromax) 500 mg PO DAILY [facility] PRN Reason: Protocol Stop: 04/09/17 14:46 Last Admin: 04/05/17 10:54 Dose: 500 mg Cyproheptadine HCl (Periactin) 4 mg PO HS [facility] Last Admin: 04/04/17 22:21 Dose: 4 mg Duloxetine HCl (Cymbalta) 30 mg PO DAILY [facility] Last Admin: 04/05/17 10:50 Dose: 30 mg Gabapentin (Neurontin) 800 mg PO TID [facility] Last Admin: 04/05/17 10:52 Dose: 800 mg Hydralazine HCl (Apresoline) 10 mg IVP Q6 PRN PRN Reason: SBP>170 Last Admin: 04/04/17 19:54 Dose: 10 mg Sodium Chloride (Sodium Chloride 0.9%) 1,000 mls @ 100 mls/hr IV .Q10H [facility] Last Admin: 04/05/17 04:09 Dose: 100 mls/hr Levetiracetam 750 mg/ Sodium (Chloride) 107.5 mls @ 460 mls/hr IV Q12 [facility] Last Admin: 04/05/17 10:51 Dose: 460 mls/hr Vancomycin HCl (Vancomycin 1gm) 1 gm in 250 mls @ 167 mls/hr IVPB Q12H [facility] PRN Reason: Protocol Last Admin: 04/05/17 00:07 Dose: 167 mls/hr Ceftriaxone Sodium (Rocephin 1 Gram Ivpb) 1 gm in 100 mls @ 100 mls/hr IVPB DAILY [facility] PRN Reason: Protocol Stop: 04/13/17 14:44 Last Admin: 04/05/17 10:58 Dose: 100 mls/hr Lisinopril (Zestril) 10 mg PO DAILY [facility] Last Admin: 04/05/17 11:03 Dose: 10 mg Multivitamins/Minerals (Therapeutic-M Tab) 1 tab PO DAILY [facility] Last Admin: 04/05/17 10:55 Dose: 1 tab Pantoprazole Sodium (Protonix Ec Tab) 40 mg PO ACB [facility] Verapamil HCl (Calan Sr Tab) 120 mg PO DAILY [facility] Last Admin: 04/05/17 10:49 Dose: 120 mg - Labs Labs: 04/04/17 04:00 04/04/17 04:00 PT 13.4 SECONDS (9.4-12.5) H 04/03/17 18:30 INR 1.17 (0.93-1.08) H 04/03/17 18:30 APTT 27.6 Seconds (25.1-36.5) 04/03/17 18:30 - Constitutional Appears: No Acute Distress - Eye Exam Eye Exam: EOMI, PERRL Pupil Exam: NORMAL ACCOMODATION - Neurological Exam Neurological Exam: Alert, Awake, CN II-XII Intact Neuro motor strength exam: Left Upper Extremity: 4, Right Upper Extremity: 0, Left Lower Extremity: 4, Right Lower Extremity: 0 Additional comments: Dysarthric, and mild aphasia. right facial droop (central), right side hemiplegia. Sensation is diminished on the right side with neglect. Assessment and Plan - Assessment and Plan (Free Text) Assessment: 66-year-old man with a past medical history of epilepsy, previous CVA with residual aphasia and right-side hemiplegia, HTN, Atrial Fibrillation (not on anticoagulation), who was brought in for a change in his mental status 2/2 Intracerebral hemorrhage. - Echo ordered to r/o endocarditis as a cause of multiple petechiae hemorrhage - Keep HOB elevated to 35-45 degrees - Avoid hyperglycemia and dextrose containing fluids - Hold antiplatelet agents and anticoagulation for at least 48 hours - Keep SBP 100-160 mm Hg - SCD for DVT Px - PT/OT eval and treatment - Speech therapy - Continue medical management per primary and ICU team Case and plan was reviewed and discussed with Dr Arguello.
--- NOTE | 2017-04-05 13:36 | CARD ---
APPROVED REPORT EXAM: Two-dimensional and M-mode echocardiogram with Doppler and color Doppler. INDICATION 2D DIMENSIONS IVSd1.6 (0.7-1.1cm)LVDd4.0 (3.9-5.9cm) LVOT Diameter2.1 (1.8-2.4cm)PWd1.6 (0.7-1.1cm) LVDs2.5 (2.5-4.0cm)FS (%) 38.6 % LVEF (%)69.5 (>50%) M-Mode DIMENSIONS Left Atrium (MM)3.40 (2.5-4.0cm)Aortic Root3.30 (2.2-3.7cm) Aortic Cusp Exc.2.10 (1.5-2.0cm) Aortic Valve AoV Peak Stixrhxs385.0cm/Cynthia Peak GR.10mmHgAI P 1/2 [id number] Mitral Valve MV E Aeophhvl064.0cm/sMV A Rrrffvvr17.2cm/sE/A ratio1.8 TDI Lateral E' Peak V7.90cm/sMedial E' Peak V4.87cm/sE/Lateral E'13.5 E/Medial E'22.0 Tricuspid Valve TR Peak [id number]/sRAP [id number] Peak Gr.30mmHg [id number] LEFT VENTRICLE The left ventricle cavity is small. The echo findings are consistent with hypertrophic cardiomyopathy. The left ventricular function is normal. The left ventricular ejection fraction is within the normal range. There is normal LV segmental wall motion. Transmitral Doppler flow pattern is abnormal. RIGHT VENTRICLE The right ventricle is normal size. There is normal right ventricular wall thickness. The right ventricular systolic function is normal. ATRIA The left atrium size is normal. The right atrium size is normal. AORTIC VALVE The aortic valve is severely thickened and may bicusped There is moderate aortic regurgitation. MITRAL VALVE The mitral valve is moderately thickened. There is no mitral valve regurgitation noted. TRICUSPID VALVE There is mild pulmonary hypertension. GREAT VESSELS The aortic root is normal in size. The IVC collapses <50% with inspiration. <Conclusion> The left ventricle cavity is small. The echo findings are consistent with hypertrophic cardiomyopathy. The left ventricular function is normal. The left ventricular ejection fraction is within the normal range. There is normal LV segmental wall motion. The aortic valve is severely thickened and may bicusped There is moderate aortic regurgitation. There is mild pulmonary hypertension.
--- NOTE | 2017-04-05 13:54 | CP.PCM.CON ---
History of Present Illness - History of Present Illness History of Present Illness: Palliative consult requested by Reason: Goals of care 66 year old male with history of CVA, right hemiparesis, HTN, HLD who presented with altered mental status, after being found slumped in commode at home. Significant other reports that he is alert and oriented at baseline. MRI of brain small hemorrhages in right superior caudate head and body junction, right anterior jakub,old hemorrhage in left lateral basal ganglia extending superiorly in to left coronal radiata. MRA of head limited study, proximal internal carotid arteries including supraclinoid carotids are patent, similarly distal arteries and basilar artery patent Chest x ray rightlower lobe infiltrate with linear atelectasis or scarring PHMX: CVA right sided weakness, slurred speech, A fib, HTN, seizures. Social History: Current smoker,occasional alcohol and marijuana use, denies illicit drug use. Lives with common law , Fanny Family History: Non contributory. Advance Care Planning: The patient has a POLST: DNR/DNI. His partner, Fanny Cortes is his health care surrogate. Review of Systems: As per HPI, otherwise negative review. Past Patient History - Infectious Disease Hx of Infectious Diseases: None - Tetanus Immunizations Tetanus Immunization: Unknown - Past Medical History & Family History Past Medical History?: Yes - Past Social History Smoking Status: Former Smoker - CARDIAC Hx Cardiac Disorders: Yes Hx Hypertension: Yes - PULMONARY Hx Pneumonia: Yes - NEUROLOGICAL HX Cerebrovascular Accident: Yes - HEENT Hx HEENT Problems: Yes (impairred speech) - RENAL Hx Chronic Kidney Disease: No - ENDOCRINE/METABOLIC Hx Endocrine Disorders: No - HEMATOLOGICAL/ONCOLOGICAL Hx Blood Disorders: No - INTEGUMENTARY Other/Comment: healed sacral wound, mult discolorations ble - MUSCULOSKELETAL/RHEUMATOLOGICAL Hx Falls: Yes - GASTROINTESTINAL Hx Gastrointestinal Disorders: No - GENITOURINARY/GYNECOLOGICAL Hx Genitourinary Disorders: No - PSYCHIATRIC Hx Psychophysiologic Disorder: Yes Hx Depression: Yes - SURGICAL HISTORY Hx Surgeries: No (unknown, denied by home care nurse) - ANESTHESIA Hx Anesthesia: Yes Hx Anesthesia Reactions: No Hx Malignant Hyperthermia: No Meds Allergies/Adverse Reactions: Allergies Allergy/AdvReac Type Severity Reaction Status Date / Time No Known Allergies Allergy Verified 04/03/17 17:24 - Medications Medications: Current Medications Albuterol/Ipratropium (Duoneb 3 Mg/0.5 Mg (3 Ml) Ud) 3 ml IH Q2H PRN PRN Reason: Shortness of Breath Atenolol (Tenormin) 50 mg PO DAILY [facility] Last Admin: 04/05/17 10:55 Dose: 50 mg Atorvastatin Calcium (Lipitor) 20 mg PO DIN [facility] Last Admin: 04/04/17 17:03 Dose: 20 mg Azithromycin (Zithromax) 500 mg PO DAILY [facility] PRN Reason: Protocol Stop: 04/09/17 14:46 Last Admin: 04/05/17 10:54 Dose: 500 mg Cyproheptadine HCl (Periactin) 4 mg PO HS [facility] Last Admin: 04/04/17 22:21 Dose: 4 mg Duloxetine HCl (Cymbalta) 30 mg PO DAILY [facility] Last Admin: 04/05/17 10:50 Dose: 30 mg Gabapentin (Neurontin) 800 mg PO TID [facility] Last Admin: 04/05/17 10:52 Dose: 800 mg Hydralazine HCl (Apresoline) 10 mg IVP Q6 PRN PRN Reason: SBP>170 Last Admin: 04/04/17 19:54 Dose: 10 mg Sodium Chloride (Sodium Chloride 0.9%) 1,000 mls @ 100 mls/hr IV .Q10H [facility] Last Admin: 04/05/17 04:09 Dose: 100 mls/hr Levetiracetam 750 mg/ Sodium (Chloride) 107.5 mls @ 460 mls/hr IV Q12 [facility] Last Admin: 04/05/17 10:51 Dose: 460 mls/hr Vancomycin HCl (Vancomycin 1gm) 1 gm in 250 mls @ 167 mls/hr IVPB Q12H [facility] PRN Reason: Protocol Last Admin: 04/05/17 13:15 Dose: 167 mls/hr Ceftriaxone Sodium (Rocephin 1 Gram Ivpb) 1 gm in 100 mls @ 100 mls/hr IVPB DAILY [facility] PRN Reason: Protocol Stop: 04/13/17 14:44 Last Admin: 04/05/17 10:58 Dose: 100 mls/hr Lisinopril (Zestril) 10 mg PO DAILY [facility] Last Admin: 04/05/17 11:03 Dose: 10 mg Multivitamins/Minerals (Therapeutic-M Tab) 1 tab PO DAILY [facility] Last Admin: 04/05/17 10:55 Dose: 1 tab Pantoprazole Sodium (Protonix Ec Tab) 40 mg PO ACB [facility] Verapamil HCl (Calan Sr Tab) 120 mg PO DAILY [facility] Last Admin: 04/05/17 10:49 Dose: 120 mg Physical Exam - Constitutional Appears: No Acute Distress, Chronically Ill - Head Exam Additional comments: right sided facial asymmetry - Eye Exam Eye Exam: Normal appearance, PERRL - ENT Exam ENT Exam: Mucous Membranes Moist, Normal Oropharynx - Neck Exam Neck exam: Positive for: Normal Inspection - Respiratory Exam Respiratory Exam: Clear to Auscultation Bilateral, NORMAL BREATHING PATTERN - Cardiovascular Exam Cardiovascular Exam: Irregular Rhythm, +S1, +S2 - GI/Abdominal Exam GI & Abdominal Exam: Normal Bowel Sounds, Soft - Extremities Exam Additional comments: right sidede hemiparesis - Back Exam Back exam: NORMAL INSPECTION - Neurological Exam Neurological exam: Alert Additional comments: oriented to place and self - Skin Skin Exam: Dry, Warm - Additional Findings Additional findings: palliative performance status 50 % Results - Vital Signs Recent Vital Signs: Last Vital Signs Temp 97.9 F 04/05/17 05:37 Pulse 77 04/05/17 13:10 Resp 24 04/05/17 13:10 BP 116/62 04/05/17 13:00 Pulse Ox 97 04/05/17 13:10 - Labs Result Diagrams: 04/05/17 14:00 04/05/17 14:00 Labs: Laboratory Results - last 24 hr 04/04/17 04/04/17 04:00 04:00 Procalcitonin 1.14 H Hepatitis A IgM Ab Negative Hep Bs Antigen Negative Hep B Core IgM Ab Negative Hepatitis C Antibody Reactive Assessment & Plan - Assessment and Plan (Free Text) Assessment: 66 year old male with history of CVA, right amelie pareis, A Fib, seizure who is admitted with altered mental status acute hemorrhage superior caudate. Mr Escamilla is alert, oriented to place and self. He does not remember why he was admitted to hospital. He is aware of past medical history. He is able to follow command and answer questions appropriately. His partner Fanny is at bedside. The patient affirms that Fanny is his health care surrogate. The patient states that he has been estranged from his family for many years and that he wants Fanny Cortes to continue as his residential care facility manager/significant other. The patient had been refusing CT scan and blood work. Explained the necessity of monitoring his condition. The patient is now agreeing to go for additional CT scan. I also explained that he was not stable enough to go home but that with his cooperation the team would do their best to stabilize so that he could return home in the near future. Dr. Luis Henao and Dr Nasreen Reyes were present during my conversation with patient and Fanny. Psychosocial support provided Time spent with patient and significant other in goals of care and advance care planning, 40 minutes Plan: Palliative support in establishing goals of care DNR/DNI
[2017-04-05] MEDS ORDERED: Potassium Chloride 40 mEq/30 ml LIQ UD PO ONE (14:11)
[2017-04-05] MEDS ORDERED: Magnesium Oxide 400 mg Tab UD PO STA (14:12)
[2017-04-05 14:13] LABS: BASO # 0.02 K/mm3 (0.0-2.0); BASO % 0.2 % (0.0-3.0); EOS # 0.2 (0.0-0.7); GRAN # 7.94 (1.4-6.5); GRAN % 75.6 % (50.0-68.0); HEMOGLOBIN 11.8 g/dL (14.0-18.0); LYMPH # 1.4 (1.2-3.4); LYMPH % 13.4 % (22.0-35.0); MEAN CELL VOLUME 81.1 fl (80.0-105.0); MEAN CORPUSCULAR HEMOGLOBIN 26.5 pg (25.0-35.0); MEAN CORPUSCULAR HGB CONC 32.7 g/dl (31.0-37.0); MEAN PLATELET VOLUME 11.2 fl (7.0-11.0); MONO # 0.9 (0.1-0.6); MONO % 8.8 % (1.0-6.0); RBC 4.45 10^6/uL (3.5-6.1); WHITE BLOOD COUNT 10.5 10^3/ul (4.5-11.0)
[2017-04-05 14:24] LABS: ALB/GLOB RATIO 0.8 (1.1-1.8); ALBUMIN 3.3 g/dL (3.0-4.8); ALT/SGPT 84 U/L (7-56); AST/SGOT 110 U/L (17-59); BLOOD UREA NITROGEN 19 mg/dL (7-21); CALCIUM 9.7 mg/dL (8.4-10.5); GFR AFRICAN-AMERICAN > 60; GFR NON-AFRICAN AMERICAN > 60; MAGNESIUM 1.8 mg/dL (1.7-2.2)
--- NOTE | 2017-04-05 14:57 | RAD ---
PROCEDURE: CHEST RADIOGRAPH, 1 VIEW HISTORY: r/o pneumonia COMPARISON: 04/03/2017 FINDINGS: LUNGS: There is improvement in the infiltrate at the right lung base. PLEURA: No pneumothorax or pleural fluid seen. CARDIOVASCULAR: Normal. OSSEOUS STRUCTURES: No significant abnormalities. VISUALIZED UPPER ABDOMEN: Normal. OTHER FINDINGS: None. IMPRESSION: Improvement in the infiltrate at the right lung base
--- NOTE | 2017-04-05 15:11 | CT ---
PROCEDURE: CT HEAD WITHOUT CONTRAST. HISTORY: stroke COMPARISON: 04/03/2017 TECHNIQUE: Axial computed tomography images were obtained through the head/brain without intravenous contrast. Radiation dose: Total exam DLP = 884 mGy-cm. This CT exam was performed using one or more of the following dose reduction techniques: Automated exposure control, adjustment of the mA and/or kV according to patient size, and/or use of iterative reconstruction technique. FINDINGS: HEMORRHAGE: There is a focal hemorrhage adjacent to the right frontal horn. This measures 14 mm in diameter. This is unchanged. There is also a small focus of hemorrhage along the anterior surface of the jakub. This is also unchanged. BRAIN: There is a chronic hemorrhage and encephalomalacia in the left basal ganglia with focal atrophy. Microvascular changes are seen in the periventricular white matter VENTRICLES: Unremarkable. No hydrocephalus. CALVARIUM: Unremarkable. PARANASAL SINUSES: Unremarkable as visualized. No significant inflammatory changes. MASTOID AIR CELLS: Unremarkable as visualized. No inflammatory changes. OTHER FINDINGS: None. IMPRESSION: Stable appearance of intracranial hemorrhages. No acute findings
[2017-04-06] MEDS: Vancomycin 1gm in NS 250ml 1 GM/250 ML BAG IVPB SCH ×3 (00:59→23:51)
--- NOTE | 2017-04-06 02:56 | CP.PCM.PN ---
<Cecil Reyes - Last Filed: 04/06/17 02:46> Subjective - Date & Time of Evaluation Date of Evaluation: 04/05/17 Time of Evaluation: 07:00 - Subjective Subjective: Patient seen and examined at bedside. 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 Patient states he does not recall what happened when his friend Fanny found him slumped over on the commode. States he wants water or milk to drink. ROS unobtainable due to patient not being compliant. Patient initially refusing further imaging and blood tests. Patients friend Fanny appeared and was able to convince patient to get the necessary testing. Objective - Vital Signs/Intake and Output Vital Signs (last 24 hours): Temp Pulse Resp BP Pulse Ox 98.8 F 82 24 116/70 96 04/06/17 00:00 04/06/17 02:00 04/06/17 01:40 04/06/17 01:00 04/06/17 01:40 Intake and Output: 04/05/17 04/06/17 18:59 06:59 Intake Total 1200 Output Total 650 Balance 550 - Medications Medications: Current Medications Albuterol/Ipratropium (Duoneb 3 Mg/0.5 Mg (3 Ml) Ud) 3 ml IH Q2H PRN PRN Reason: Shortness of Breath Atenolol (Tenormin) 50 mg PO DAILY [facility] Last Admin: 04/05/17 10:55 Dose: 50 mg Atorvastatin Calcium (Lipitor) 20 mg PO DIN [facility] Last Admin: 04/05/17 17:52 Dose: 20 mg Azithromycin (Zithromax) 500 mg PO DAILY [facility] PRN Reason: Protocol Stop: 04/09/17 14:46 Last Admin: 04/05/17 10:54 Dose: 500 mg Cyproheptadine HCl (Periactin) 4 mg PO HS [facility] Last Admin: 04/05/17 21:34 Dose: 4 mg Duloxetine HCl (Cymbalta) 30 mg PO DAILY [facility] Last Admin: 04/05/17 10:50 Dose: 30 mg Gabapentin (Neurontin) 800 mg PO TID [facility] Last Admin: 04/05/17 17:52 Dose: 800 mg Hydralazine HCl (Apresoline) 10 mg IVP Q6 PRN PRN Reason: SBP>170 Last Admin: 04/04/17 19:54 Dose: 10 mg Sodium Chloride (Sodium Chloride 0.9%) 1,000 mls @ 100 mls/hr IV .Q10H [facility] Last Admin: 04/05/17 23:20 Dose: Not Given Levetiracetam 750 mg/ Sodium (Chloride) 107.5 mls @ 460 mls/hr IV Q12 [facility] Last Admin: 04/05/17 21:47 Dose: 460 mls/hr Vancomycin HCl (Vancomycin 1gm) 1 gm in 250 mls @ 167 mls/hr IVPB Q12H [facility] PRN Reason: Protocol Last Admin: 04/06/17 00:59 Dose: 167 mls/hr Ceftriaxone Sodium (Rocephin 1 Gram Ivpb) 1 gm in 100 mls @ 100 mls/hr IVPB DAILY [facility] PRN Reason: Protocol Stop: 04/13/17 14:44 Last Admin: 04/05/17 10:58 Dose: 100 mls/hr Lisinopril (Zestril) 10 mg PO DAILY [facility] Last Admin: 04/05/17 11:03 Dose: 10 mg Multivitamins/Minerals (Therapeutic-M Tab) 1 tab PO DAILY [facility] Last Admin: 04/05/17 10:55 Dose: 1 tab Nicotine (Nicoderm Cq) 1 patch TD DAILY [facility] Last Admin: 04/05/17 17:53 Dose: 1 patch Pantoprazole Sodium (Protonix Ec Tab) 40 mg PO ACB [facility] Verapamil HCl (Calan Sr Tab) 120 mg PO DAILY [facility] Last Admin: 04/05/17 10:49 Dose: 120 mg - Labs Labs: 04/05/17 14:00 04/05/17 14:00 PT 13.4 SECONDS (9.4-12.5) H 04/03/17 18:30 INR 1.17 (0.93-1.08) H 04/03/17 18:30 APTT 27.6 Seconds (25.1-36.5) 04/03/17 18:30 - Constitutional Appears: Non-toxic, No Acute Distress - Head Exam Head Exam: ATRAUMATIC, NORMAL INSPECTION, NORMOCEPHALIC - Eye Exam Eye Exam: EOMI, Normal appearance - ENT Exam ENT Exam: Mucous Membranes Moist, Normal Exam - Neck Exam Neck Exam: Normal Inspection - Respiratory Exam Respiratory Exam: Clear to Ausculation Bilateral, NORMAL BREATHING PATTERN. absent: Rales, Rhonchi, Wheezes - Cardiovascular Exam Cardiovascular Exam: REGULAR RHYTHM, +S1, +S2 - GI/Abdominal Exam GI & Abdominal Exam: Soft, Normal Bowel Sounds - Rectal Exam Rectal Exam: NORMAL INSPECTION - Extremities Exam Extremities Exam: Normal Inspection - Back Exam Back Exam: NORMAL INSPECTION - Neurological Exam Neurological Exam: Alert, Awake, Oriented x3 - Psychiatric Exam Psychiatric exam: Normal Affect, Normal Mood - Skin Skin Exam: Intact, Normal Color, Warm Assessment and Plan - Assessment and Plan (Free Text) Assessment: 66 year old male with past medical history of seizures, CVA w/ residual aphasia and R sided weakness, HTN, and Atrial Fibrillation presents with intracerebral hemorrhage. CT head shows hemorrhage of the right anterior jakub. Neurology ordering Brain MRI and Neck MRA, will follow up results. Will continue antibiotics for right lower lobe pneumonia. Will continue to monitor closely for any worsening of symptoms. Plan: Intracerebral hemorrhage Continue current recommendations of Neuro Follow up CT head reveals focal hemorrhage adjacent to right frontal horn measuring 14 mm in diameter which is unchanged. No surgical intervention HOB elevated to 30 degrees, aspirations precautions Neuro checks q2h Maintain normotension Right lower lobe pneumonia Procal 1.14 Vancomycin, Azithromycin, Rocephin Duonebs ID following Aspiration precautions Atrial Fibrillation Continue Atenolol and Verapamil Hold ASA HTN Continue Lisinopril daily Maintain normotension GI/DVT Prophylaxis Protonix No anticoagulation due to intracerebral hemorrhage <Yeni Duran - Last Filed: 04/06/17 15:55> Objective - Vital Signs/Intake and Output Vital Signs (last 24 hours): Temp Pulse Resp BP Pulse Ox 97.7 F 85 20 142/86 98 04/06/17 11:56 04/06/17 14:00 04/06/17 11:56 04/06/17 11:56 04/06/17 06:50 Intake and Output: 04/06/17 04/06/17 06:59 18:59 Intake Total 330 Output Total 400 301 Balance -400 29 - Medications Medications: Current Medications Albuterol/Ipratropium (Duoneb 3 Mg/0.5 Mg (3 Ml) Ud) 3 ml IH Q2H PRN PRN Reason: Shortness of Breath Atenolol (Tenormin) 50 mg PO DAILY [facility] Last Admin: 04/06/17 09:32 Dose: 50 mg Atorvastatin Calcium (Lipitor) 20 mg PO DIN [facility] Last Admin: 04/05/17 17:52 Dose: 20 mg Azithromycin (Zithromax) 500 mg PO DAILY [facility] PRN Reason: Protocol Stop: 04/09/17 14:46 Last Admin: 04/06/17 10:30 Dose: 500 mg Cyproheptadine HCl (Periactin) 4 mg PO HS [facility] Last Admin: 04/05/17 21:34 Dose: 4 mg Duloxetine HCl (Cymbalta) 30 mg PO DAILY [facility] Last Admin: 04/06/17 09:33 Dose: 30 mg Gabapentin (Neurontin) 800 mg PO TID [facility] Last Admin: 04/06/17 14:31 Dose: 800 mg Hydralazine HCl (Apresoline) 10 mg IVP Q6 PRN PRN Reason: SBP>170 Last Admin: 04/04/17 19:54 Dose: 10 mg Sodium Chloride (Sodium Chloride 0.9%) 1,000 mls @ 100 mls/hr IV .Q10H [facility] Last Admin: 04/06/17 05:31 Dose: 100 mls/hr Levetiracetam 750 mg/ Sodium (Chloride) 107.5 mls @ 460 mls/hr IV Q12 [facility] Last Admin: 04/06/17 09:34 Dose: 460 mls/hr Vancomycin HCl (Vancomycin 1gm) 1 gm in 250 mls @ 167 mls/hr IVPB Q12H [facility] PRN Reason: Protocol Last Admin: 04/06/17 12:08 Dose: 167 mls/hr Ceftriaxone Sodium (Rocephin 1 Gram Ivpb) 1 gm in 100 mls @ 100 mls/hr IVPB DAILY [facility] PRN Reason: Protocol Stop: 04/13/17 14:44 Last Admin: 04/06/17 09:34 Dose: 100 mls/hr Lisinopril (Zestril) 10 mg PO DAILY [facility] Last Admin: 04/06/17 09:33 Dose: 10 mg Multivitamins/Minerals (Therapeutic-M Tab) 1 tab PO DAILY [facility] Last Admin: 04/06/17 09:33 Dose: 1 tab Nicotine (Nicoderm Cq) 1 patch TD DAILY [facility] Last Admin: 04/06/17 09:34 Dose: 1 patch Pantoprazole Sodium (Protonix Ec Tab) 40 mg PO ACB [facility] Last Admin: 04/06/17 08:00 Dose: 40 mg Verapamil HCl (Calan Sr Tab) 120 mg PO DAILY [facility] Last Admin: 04/06/17 10:38 Dose: 120 mg - Labs Labs: 04/06/17 11:00 04/06/17 11:00 PT 13.4 SECONDS (9.4-12.5) H 04/03/17 18:30 INR 1.17 (0.93-1.08) H 04/03/17 18:30 APTT 27.6 Seconds (25.1-36.5) 04/03/17 18:30 Attending/Attestation - Attestation I have personally seen and examined this patient.: Yes I have fully participated in the care of the patient.: Yes I have reviewed all pertinent clinical information, including history, physical exam and plan: Yes Notes (Text): 04/06/17 15:51 attending note; Patient seen and examined with resident. Patient is a 66 year old male with history of seizures, CVA with residual aphasia and Right sided weakness, hypertension, cerebral amyloid angiopathy, Hep C (known and unsure if its treated or not) and paroxysmal atrial flutter only on aspirin who was brought by the family for AMS and found to have intracerebral hemorrhage. CT head shows hemorrhage of the right anterior jakub. MRI of the brain showed multiple Punctate hemorrhages. MRA is negative. Patient is clinically improving. PT evaluation requested. Patient with expressive aphasia. Aspiration precautions explained to the patient. echocardiogram ordered. Right lower lobe pneumonia. clinically improving. Continue Rocephin and vancomycin. Patient is DNR/DNI. health care proxy is Yomaira/next of kin. Upon discharge patient will follow up with Dr Whitman.
[2017-04-06] MEDS: Sodium Chloride 0.9% 1,000 ML IV SCH ×2 (05:31→18:45)
--- NOTE | 2017-04-06 06:17 | CP.PCM.PN ---
<Cecil Reyes - Last Filed: 04/07/17 07:36> Subjective - Date & Time of Evaluation Date of Evaluation: 04/06/17 Time of Evaluation: 06:02 - Subjective Subjective: Patient seen and examined at bedside with no acute complaints. discussed with patient his echocardiogram and CT head findings. Patient states he just has some discomfort on the right side of his face and right upper extremities which is residual from his stroke he states was three years ago. Denies shortness of breath, chest pain, nausea, vomiting, diarrhea. Has not made any bowel movements overnight. Objective - Vital Signs/Intake and Output Vital Signs (last 24 hours): Temp Pulse Resp BP Pulse Ox 98.3 F 84 21 149/80 97 04/06/17 04:00 04/06/17 05:10 04/06/17 05:10 04/06/17 05:00 04/06/17 05:10 Intake and Output: 04/05/17 04/06/17 18:59 06:59 Intake Total 1200 Output Total 650 Balance 550 - Medications Medications: Current Medications Albuterol/Ipratropium (Duoneb 3 Mg/0.5 Mg (3 Ml) Ud) 3 ml IH Q2H PRN PRN Reason: Shortness of Breath Atenolol (Tenormin) 50 mg PO DAILY [facility] Last Admin: 04/05/17 10:55 Dose: 50 mg Atorvastatin Calcium (Lipitor) 20 mg PO DIN [facility] Last Admin: 04/05/17 17:52 Dose: 20 mg Azithromycin (Zithromax) 500 mg PO DAILY [facility] PRN Reason: Protocol Stop: 04/09/17 14:46 Last Admin: 04/05/17 10:54 Dose: 500 mg Cyproheptadine HCl (Periactin) 4 mg PO HS [facility] Last Admin: 04/05/17 21:34 Dose: 4 mg Duloxetine HCl (Cymbalta) 30 mg PO DAILY [facility] Last Admin: 04/05/17 10:50 Dose: 30 mg Gabapentin (Neurontin) 800 mg PO TID [facility] Last Admin: 04/05/17 17:52 Dose: 800 mg Hydralazine HCl (Apresoline) 10 mg IVP Q6 PRN PRN Reason: SBP>170 Last Admin: 04/04/17 19:54 Dose: 10 mg Sodium Chloride (Sodium Chloride 0.9%) 1,000 mls @ 100 mls/hr IV .Q10H [facility] Last Admin: 04/06/17 05:31 Dose: 100 mls/hr Levetiracetam 750 mg/ Sodium (Chloride) 107.5 mls @ 460 mls/hr IV Q12 [facility] Last Admin: 04/05/17 21:47 Dose: 460 mls/hr Vancomycin HCl (Vancomycin 1gm) 1 gm in 250 mls @ 167 mls/hr IVPB Q12H [facility] PRN Reason: Protocol Last Admin: 04/06/17 00:59 Dose: 167 mls/hr Ceftriaxone Sodium (Rocephin 1 Gram Ivpb) 1 gm in 100 mls @ 100 mls/hr IVPB DAILY [facility] PRN Reason: Protocol Stop: 04/13/17 14:44 Last Admin: 04/05/17 10:58 Dose: 100 mls/hr Lisinopril (Zestril) 10 mg PO DAILY [facility] Last Admin: 04/05/17 11:03 Dose: 10 mg Multivitamins/Minerals (Therapeutic-M Tab) 1 tab PO DAILY [facility] Last Admin: 04/05/17 10:55 Dose: 1 tab Nicotine (Nicoderm Cq) 1 patch TD DAILY [facility] Last Admin: 04/05/17 17:53 Dose: 1 patch Pantoprazole Sodium (Protonix Ec Tab) 40 mg PO ACB [facility] Verapamil HCl (Calan Sr Tab) 120 mg PO DAILY [facility] Last Admin: 04/05/17 10:49 Dose: 120 mg - Labs Labs: 04/05/17 14:00 04/05/17 14:00 PT 13.4 SECONDS (9.4-12.5) H 04/03/17 18:30 INR 1.17 (0.93-1.08) H 04/03/17 18:30 APTT 27.6 Seconds (25.1-36.5) 04/03/17 18:30 - Constitutional Appears: Non-toxic, No Acute Distress - Head Exam Head Exam: ATRAUMATIC, NORMAL INSPECTION, NORMOCEPHALIC - Eye Exam Eye Exam: EOMI, Normal appearance - ENT Exam ENT Exam: Mucous Membranes Moist, Normal Exam - Neck Exam Neck Exam: Normal Inspection - Respiratory Exam Respiratory Exam: Clear to Ausculation Bilateral, NORMAL BREATHING PATTERN. absent: Rhonchi, Wheezes - Cardiovascular Exam Cardiovascular Exam: REGULAR RHYTHM, +S1, +S2 - GI/Abdominal Exam GI & Abdominal Exam: Soft, Normal Bowel Sounds. 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 CT head shows hemorrhage of the right anterior jakub. Neurology ordering Brain MRI and Neck MRA, will follow up results. Will continue antibiotics for right lower lobe pneumonia. Will continue to monitor closely for any worsening of symptoms. Plan: Intracerebral hemorrhage Continue current recommendations of Neuro Follow up CT head reveals focal hemorrhage adjacent to right frontal horn measuring 14 mm in diameter which is unchanged. No surgical intervention HOB elevated to 30 degrees, aspirations precautions Neuro checks q2h Maintain normotension Hold aspirin Right lower lobe pneumonia Procal 1.14 Vancomycin, Azithromycin, Rocephin Duonebs ID following; awaiting MRSA nares screen and HIV as well as culture results Aspiration precautions Atrial Fibrillation Continue Atenolol and Verapamil Hold ASA HTN Continue Lisinopril daily Maintain normotension GI/DVT Prophylaxis Protonix No anticoagulation due to intracerebral hemorrhage, continue with SCDs Dispo: patient will be able to go home tomorrow with [employer] evaluation and services pending clearance from ID <Yeni Duran - Last Filed: 04/07/17 13:35> Objective - Vital Signs/Intake and Output Vital Signs (last 24 hours): Temp Pulse Resp BP Pulse Ox 98.5 F 81 18 167/98 H 96 04/07/17 11:45 04/07/17 11:45 04/07/17 11:45 04/07/17 11:45 04/07/17 06:00 Intake and Output: 04/07/17 04/07/17 06:59 18:59 Intake Total 60 Output Total 50 Balance 10 - Medications Medications: Current Medications Albuterol/Ipratropium (Duoneb 3 Mg/0.5 Mg (3 Ml) Ud) 3 ml IH Q2H PRN PRN Reason: Shortness of Breath Atenolol (Tenormin) 50 mg PO DAILY [facility] Last Admin: 04/07/17 10:19 Dose: 50 mg Atorvastatin Calcium (Lipitor) 20 mg PO DIN [facility] Last Admin: 04/06/17 18:20 Dose: 20 mg Azithromycin (Zithromax) 500 mg PO DAILY [facility] PRN Reason: Protocol Stop: 04/09/17 14:46 Last Admin: 04/07/17 10:20 Dose: 500 mg Cyproheptadine HCl (Periactin) 4 mg PO HS [facility] Last Admin: 04/06/17 22:04 Dose: 4 mg Duloxetine HCl (Cymbalta) 30 mg PO DAILY [facility] Last Admin: 04/07/17 10:17 Dose: 30 mg Gabapentin (Neurontin) 800 mg PO TID [facility] Last Admin: 04/07/17 10:18 Dose: 800 mg Hydralazine HCl (Apresoline) 10 mg IVP Q6 PRN PRN Reason: SBP>150 Levetiracetam 750 mg/ Sodium (Chloride) 107.5 mls @ 460 mls/hr IV Q12 [facility] Last Admin: 04/07/17 10:17 Dose: 460 mls/hr Vancomycin HCl (Vancomycin 1gm) 1 gm in 250 mls @ 167 mls/hr IVPB Q12H [facility] PRN Reason: Protocol Last Admin: 04/06/17 23:51 Dose: 167 mls/hr Ceftriaxone Sodium (Rocephin 1 Gram Ivpb) 1 gm in 100 mls @ 100 mls/hr IVPB DAILY [facility] PRN Reason: Protocol Stop: 04/13/17 14:44 Last Admin: 04/07/17 10:19 Dose: 100 mls/hr Lisinopril (Zestril) 10 mg PO DAILY [facility] Last Admin: 04/07/17 10:20 Dose: 10 mg Multivitamins/Minerals (Therapeutic-M Tab) 1 tab PO DAILY [facility] Last Admin: 04/07/17 10:20 Dose: 1 tab Nicotine (Nicoderm Cq) 1 patch TD DAILY [facility] Last Admin: 04/07/17 10:18 Dose: 1 patch Pantoprazole Sodium (Protonix Ec Tab) 40 mg PO ACB [facility] Last Admin: 04/07/17 08:00 Dose: 40 mg Verapamil HCl (Calan Sr Tab) 180 mg PO DAILY [facility] Last Admin: 02/21/18 10:16 Dose: 180 mg - Labs Labs: 04/06/17 11:00 04/06/17 11:00 PT 13.4 SECONDS (9.4-12.5) H 04/03/17 18:30 INR 1.17 (0.93-1.08) H 04/03/17 18:30 APTT 27.6 Seconds (25.1-36.5) 04/03/17 18:30 Attending/Attestation - Attestation I have personally seen and examined this patient.: Yes I have fully participated in the care of the patient.: Yes I have reviewed all pertinent clinical information, including history, physical exam and plan: Yes Notes (Text): 04/07/17 13:31 attending note; Patient seen and examined with resident. Patient is a 66 year old male with history of seizures, CVA with residual aphasia and Right sided weakness, hypertension, cerebral amyloid angiopathy, Hep C (known and unsure if its treated or not) and paroxysmal atrial flutter only on aspirin who was brought by the family for AMS and found to have intracerebral hemorrhage. CT head shows hemorrhage of the right anterior jakub. MRI of the brain showed multiple Punctate hemorrhages. MRA is negative. neurology recommending possible ALESIA. Patient refused. Patient is clinically improving. PT evaluation appreciated. Recommending subacute rehabilitation. Patient with expressive aphasia. Aspiration precautions explained to the patient. echocardiogram showed normal ejection fraction with bicuspid aortic valve. cardiology evaluation appreciated. Right lower lobe pneumonia. clinically improving. Continue Rocephin and vancomycin and Zithromax. Patient is DNR/DNI. health care proxy is Yomaira/next of kin. possible discharge home tomorrow versus subacute rehabilitation. Case discussed with family service caseworker in detail. Upon discharge patient will follow up with Dr. Whitman.
[2017-04-06] MEDS: Pantoprazole 40 mg EC Tab PO SCH (08:00)
[2017-04-06] MEDS: Multivitamin With Minerals Tab PO SCH (09:33)
[2017-04-06] MEDS: cefTRIAXone 1 gm 1 GM/100 ML BAG IVPB SCH (09:34)
--- NOTE | 2017-04-06 10:16 | CP.PCM.PN ---
Subjective - Date & Time of Evaluation Date of Evaluation: 04/06/17 Time of Evaluation: 09:30 - Subjective Subjective: Comfortable in bed, no fevers, no SOB at rest, no cough, no diarrhea, no abdominal pain, no chest pain. Objective - Vital Signs/Intake and Output Vital Signs (last 24 hours): Temp Pulse Resp BP Pulse Ox 98.3 F 83 17 131/79 98 04/06/17 04:00 04/06/17 06:50 04/06/17 06:50 04/06/17 06:00 04/06/17 06:50 Intake and Output: 04/06/17 04/06/17 06:59 18:59 Output Total 400 Balance -400 - Medications Medications: Current Medications Albuterol/Ipratropium (Duoneb 3 Mg/0.5 Mg (3 Ml) Ud) 3 ml IH Q2H PRN PRN Reason: Shortness of Breath Atenolol (Tenormin) 50 mg PO DAILY [facility] Last Admin: 04/05/17 10:55 Dose: 50 mg Atorvastatin Calcium (Lipitor) 20 mg PO DIN [facility] Last Admin: 04/05/17 17:52 Dose: 20 mg Azithromycin (Zithromax) 500 mg PO DAILY [facility] PRN Reason: Protocol Stop: 04/09/17 14:46 Last Admin: 04/05/17 10:54 Dose: 500 mg Cyproheptadine HCl (Periactin) 4 mg PO HS [facility] Last Admin: 04/05/17 21:34 Dose: 4 mg Duloxetine HCl (Cymbalta) 30 mg PO DAILY [facility] Last Admin: 04/05/17 10:50 Dose: 30 mg Gabapentin (Neurontin) 800 mg PO TID [facility] Last Admin: 04/05/17 17:52 Dose: 800 mg Hydralazine HCl (Apresoline) 10 mg IVP Q6 PRN PRN Reason: SBP>170 Last Admin: 04/04/17 19:54 Dose: 10 mg Sodium Chloride (Sodium Chloride 0.9%) 1,000 mls @ 100 mls/hr IV .Q10H [facility] Last Admin: 04/06/17 05:31 Dose: 100 mls/hr Levetiracetam 750 mg/ Sodium (Chloride) 107.5 mls @ 460 mls/hr IV Q12 [facility] Last Admin: 04/05/17 21:47 Dose: 460 mls/hr Vancomycin HCl (Vancomycin 1gm) 1 gm in 250 mls @ 167 mls/hr IVPB Q12H [facility] PRN Reason: Protocol Last Admin: 04/06/17 00:59 Dose: 167 mls/hr Ceftriaxone Sodium (Rocephin 1 Gram Ivpb) 1 gm in 100 mls @ 100 mls/hr IVPB DAILY [facility] PRN Reason: Protocol Stop: 04/13/17 14:44 Last Admin: 04/05/17 10:58 Dose: 100 mls/hr Potassium Chloride (Potassium Chloride 20 Meq/100 Ml) 20 meq in 100 mls @ 50 mls/hr IVPB ONCE ONE Stop: 04/06/17 11:00 Lisinopril (Zestril) 10 mg PO DAILY [facility] Last Admin: 04/05/17 11:03 Dose: 10 mg Multivitamins/Minerals (Therapeutic-M Tab) 1 tab PO DAILY [facility] Last Admin: 04/05/17 10:55 Dose: 1 tab Nicotine (Nicoderm Cq) 1 patch TD DAILY [facility] Last Admin: 04/05/17 17:53 Dose: 1 patch Pantoprazole Sodium (Protonix Ec Tab) 40 mg PO ACB [facility] Verapamil HCl (Calan Sr Tab) 120 mg PO DAILY [facility] Last Admin: 04/05/17 10:49 Dose: 120 mg - Labs Labs: 04/05/17 14:00 04/05/17 14:00 PT 13.4 SECONDS (9.4-12.5) H 04/03/17 18:30 INR 1.17 (0.93-1.08) H 04/03/17 18:30 APTT 27.6 Seconds (25.1-36.5) 04/03/17 18:30 - Constitutional Appears: Non-toxic, Chronically Ill - Head Exam Head Exam: NORMAL INSPECTION - Neck Exam Neck Exam: absent: Meningismus - Respiratory Exam Respiratory Exam: Decreased Breath Sounds - Cardiovascular Exam Cardiovascular Exam: +S1, +S2 - GI/Abdominal Exam GI & Abdominal Exam: Soft. absent: Tenderness Assessment and Plan - Assessment and Plan (Free Text) Plan: Assessment Severe sepsis with community-acquired pneumonia acute periventricular hemorrhage etiology to be determined history of CVA with right sided weakness dyslipidemia depression history of pneumonia CAD HTN history of seizures Plan Continue Vancomycin, Rocephin and Zithromax day 3 pending final cultures continue to monitor fever curve follow up MRSA nares follow up HIV test 2D echo reviewed which shows moderate AI which was present 1 year ago - blood cx have negative as well - less likely endocarditis as a source of the intra- cranial hemorrhage
[2017-04-06] MEDS: Verapamil 120 mg ER Tab PO SCH (10:38)
[2017-04-06 12:15] LABS: BASO # 0.04 K/mm3 (0.0-2.0); BASO % 0.5 % (0.0-3.0); EOS # 0.4 (0.0-0.7); EOS % 4.5 % (1.5-5.0); GRAN # 5.06 (1.4-6.5); GRAN % 63.8 % (50.0-68.0); HEMOGLOBIN 11.7 g/dL (14.0-18.0); LYMPH # 1.7 (1.2-3.4); LYMPH % 21.6 % (22.0-35.0); MEAN CELL VOLUME 82.8 fl (80.0-105.0); MEAN CORPUSCULAR HEMOGLOBIN 26.8 pg (25.0-35.0); MEAN CORPUSCULAR HGB CONC 32.3 g/dl (31.0-37.0); MEAN PLATELET VOLUME 11.2 fl (7.0-11.0); MONO # 0.8 (0.1-0.6); MONO % 9.6 % (1.0-6.0); RBC 4.37 10^6/uL (3.5-6.1); RED CELL DISTRIBUTION WIDTH 15.1 % (11.5-14.5); WHITE BLOOD COUNT 7.9 10^3/ul (4.5-11.0)
--- NOTE | 2017-04-06 12:25 | CP.PCM.PN ---
Subjective - Date & Time of Evaluation Date of Evaluation: 04/06/17 Time of Evaluation: 10:30 - Subjective Subjective: Neuro progress note: Pt seen and examined at bedside. No acute events overnight. Pt currently with aphasic, dysarthric and has word salad in his speech but slightly better than yesterday. Follows some commands. 12 Point ROS performed but limited due to patients stroke Objective - Vital Signs/Intake and Output Vital Signs (last 24 hours): Temp Pulse Resp BP Pulse Ox 97.7 F 88 20 142/86 98 04/06/17 11:56 04/06/17 11:56 04/06/17 11:56 04/06/17 11:56 04/06/17 06:50 Intake and Output: 04/06/17 04/06/17 06:59 18:59 Intake Total 330 Output Total 400 301 Balance -400 29 - Medications Medications: Current Medications Albuterol/Ipratropium (Duoneb 3 Mg/0.5 Mg (3 Ml) Ud) 3 ml IH Q2H PRN PRN Reason: Shortness of Breath Atenolol (Tenormin) 50 mg PO DAILY [facility] Last Admin: 04/06/17 09:32 Dose: 50 mg Atorvastatin Calcium (Lipitor) 20 mg PO DIN [facility] Last Admin: 04/05/17 17:52 Dose: 20 mg Azithromycin (Zithromax) 500 mg PO DAILY [facility] PRN Reason: Protocol Stop: 04/09/17 14:46 Last Admin: 04/06/17 10:30 Dose: 500 mg Cyproheptadine HCl (Periactin) 4 mg PO HS [facility] Last Admin: 04/05/17 21:34 Dose: 4 mg Duloxetine HCl (Cymbalta) 30 mg PO DAILY [facility] Last Admin: 04/06/17 09:33 Dose: 30 mg Gabapentin (Neurontin) 800 mg PO TID [facility] Last Admin: 04/06/17 09:32 Dose: 800 mg Hydralazine HCl (Apresoline) 10 mg IVP Q6 PRN PRN Reason: SBP>170 Last Admin: 04/04/17 19:54 Dose: 10 mg Sodium Chloride (Sodium Chloride 0.9%) 1,000 mls @ 100 mls/hr IV .Q10H [facility] Last Admin: 04/06/17 05:31 Dose: 100 mls/hr Levetiracetam 750 mg/ Sodium (Chloride) 107.5 mls @ 460 mls/hr IV Q12 [facility] Last Admin: 04/06/17 09:34 Dose: 460 mls/hr Vancomycin HCl (Vancomycin 1gm) 1 gm in 250 mls @ 167 mls/hr IVPB Q12H [facility] PRN Reason: Protocol Last Admin: 04/06/17 12:08 Dose: 167 mls/hr Ceftriaxone Sodium (Rocephin 1 Gram Ivpb) 1 gm in 100 mls @ 100 mls/hr IVPB DAILY [facility] PRN Reason: Protocol Stop: 04/13/17 14:44 Last Admin: 04/06/17 09:34 Dose: 100 mls/hr Lisinopril (Zestril) 10 mg PO DAILY [facility] Last Admin: 04/06/17 09:33 Dose: 10 mg Multivitamins/Minerals (Therapeutic-M Tab) 1 tab PO DAILY [facility] Last Admin: 04/06/17 09:33 Dose: 1 tab Nicotine (Nicoderm Cq) 1 patch TD DAILY [facility] Last Admin: 04/06/17 09:34 Dose: 1 patch Pantoprazole Sodium (Protonix Ec Tab) 40 mg PO ACB [facility] Last Admin: 04/06/17 08:00 Dose: 40 mg Verapamil HCl (Calan Sr Tab) 120 mg PO DAILY [facility] Last Admin: 04/06/17 10:38 Dose: 120 mg - Labs Labs: 04/06/17 11:00 04/05/17 14:00 PT 13.4 SECONDS (9.4-12.5) H 04/03/17 18:30 INR 1.17 (0.93-1.08) H 04/03/17 18:30 APTT 27.6 Seconds (25.1-36.5) 04/03/17 18:30 - Constitutional Appears: No Acute Distress - Eye Exam Eye Exam: EOMI, PERRL - Neurological Exam Neurological Exam: Alert, Awake Neuro motor strength exam: Left Upper Extremity: 0, Right Upper Extremity: 4, Left Lower Extremity: 0, Right Lower Extremity: 4 Additional comments: Dysarthric, and mild aphasia. right facial droop (central), right side hemiplegia. Sensation is diminished on the right side with neglect. Assessment and Plan - Assessment and Plan (Free Text) Assessment: 66-year-old man with a past medical history of epilepsy, previous CVA with residual aphasia and right-side hemiplegia, HTN, Atrial Fibrillation (not on anticoagulation), who was brought in for a change in his mental status 2/2 Intracerebral hemorrhage. - Recommend ALESIA to the patient to r/o endocardittis but patient refused having any further exams done. Pt aware that this may cause him to have another stroke but still refuses - Cont Keppra 750mg Q12 - HOB elevated to 35-45 degrees - Avoid hyperglycemia - Hold antiplatelet agents and anticoagulation for at least 48 hours - Keep SBP 100-160 mm Hg - SCD for DVT Px - PT/OT eval and treatment and Speech therapy - Continue medical management per primary and ICU team - F/u Cardio and palliative recs Case and plan was reviewed and discussed with Dr Arguello.
[2017-04-06 12:28] LABS: ALB/GLOB RATIO 0.8 (1.1-1.8); ALBUMIN 3.2 g/dL (3.0-4.8); ALT/SGPT 91 U/L (7-56); AST/SGOT 114 U/L (17-59); BLOOD UREA NITROGEN 19 mg/dL (7-21); CALCIUM 9.9 mg/dL (8.4-10.5); GFR AFRICAN-AMERICAN > 60; GFR NON-AFRICAN AMERICAN > 60
--- NOTE | 2017-04-06 18:11 | CON ---
DATE: 04/06/2017 REASON FOR CONSULTATION: Possible bicuspid aortic valve as per preliminary echo reading. BRIEF CLINICAL HISTORY: This is a 66-year-old male with past medical history significant for seizure disorder, CVA, residual aphasia, right-sided weakness, hypertension, and atrial fibrillation, who presented with altered mental status at home. The patient had an echocardiography done yesterday, and heavily calcified aortic valve with aortic regurgitation, possibility of bicuspid aortic valve cannot be ruled out, so cardiac consult was called. The patient is in ICU 129, bed 2 with altered mental status, not in apparent distress. Denies any chest pain, shortness of breath, or any palpitation. The patient was previously admitted in 06/2016 with AFib with rapid ventricular rate. PAST MEDICAL HISTORY: Significant for seizure disorder, CVA with residual aphasia, right-sided weakness, hypertension, atrial fibrillation with rapid ventricular rate. FAMILY HISTORY: Noncontributory. ALLERGIES: NO KNOWN DRUG ALLERGIES. SOCIAL HISTORY: Denies any history of alcohol abuse. CURRENT MEDICATIONS: The patient is on Keppra, verapamil, lisinopril, Cymbalta, cyproheptadine, Lipitor, atenolol, and aspirin. PREVIOUS CARDIAC WORKUP: Patient had EKG on 07/08/2016 that shows sinus tachycardia with premature atrial complexes. Prior to that, the patient had on 07/08/2013 that shows atrial flutter with 2:1 conduction, heart rate 168, and EKG on 07/08/2013, sinus tachycardia. History of paroxysmal atrial fibrillation converted to normal sinus, supraventricular tachycardia, history of stress test, history of echocardiography on 05/15/2016 that shows ejection fraction 50%, [id number] aortic regurgitation, mild mitral regurgitation, mild tricuspid regurgitation, right ventricular systolic pressure of 38, a small pericardial effusion, mild left pleural effusion, no vegetation noted. Ejection fraction 50%. The patient had a stress test on 05/18/2016 that shows probably normal myocardial perfusion study, fixed defect, no reversible ischemia. Ejection fraction 65%. The patient's EKG on last admission shows supraventricular tachycardia with atrial flutter. Last admission, the patient has normal sinus. EKG on 06/01/2016 showed normal sinus. REVIEW OF SYSTEMS: As per HPI. PHYSICAL EXAMINATION: VITAL SIGNS: Temperature afebrile, heart rate 83, blood pressure . HEENT: PERRLA. Extraocular muscles intact. NECK: Supple. No carotid bruits or thyromegaly. CHEST: Clear to auscultation. HEART: S1 and S2, regular. ABDOMEN: Soft. EXTREMITIES: Clubbing and cyanosis negative. LABORATORY DATA: Blood workup as follows: WBC 10.5, hemoglobin 11.5, hematocrit 36.1, and platelet count 153. Chemistry shows sodium 147, potassium 3.3, chloride 111, carbon dioxide 23, anion gap 17, BUN 19, creatinine 0.9. Magnesium 1.8, bilirubin 1.4, AST 110, , total protein 7.2, albumin 3.3, album and globulin ratio 0.8. EKG shows normal sinus, left atrial enlargement, left axis deviation, LVH, nonspecific ST-T wave changes noted. IMPRESSION: Admitted with altered mental status, history of cerebrovascular accident, history of right hemiparesis, hypertension, hyperlipidemia, history of paroxysmal atrial fibrillation but not this admission, patient in normal sinus, not on anticoagulation because the patient is in normal sinus. Cardiac consult was called for possible bicuspid aortic valve calcified, most recent echo suggested, dated 04/05/2017, mentioned normal left ventricular function, ejection fraction within normal limits, severely thickened aortic valve, may bicuspid, moderate aortic regurgitation, mild pulmonary hypertension, right ventricular systolic pressure 40. RECOMMENDATION: Continue current treatment, hydralazine, verapamil, atorvastatin. The patient is not on aspirin. The patient's CAT scan of the head shows right caudate region intraparenchymal hemorrhage, so the patient is not on aspirin. We will leave this decision to neurologist the timing of starting aspirin again, but definitely is not a candidate for anticoagulation, though the patient is in normal sinus, does not need at this point. We will review the echo and no further invasive cardiac workup is planned at this time, but we will review echo and further recommendation will be made during the hospital course. We will supplement potassium. We will follow with you. Thank you Dr. Duran for providing us the opportunity in taking care of the patient, Dario Escamilla. Nilsa Hein MD [facility] # [id number]
--- NOTE | 2017-04-07 02:36 | CARD ---
APPROVED REPORT EKG Measurement Heart [id number] <Conclusion> Sinus rhythm with premature atrial complexes Left axis deviation Left ventricular hypertrophy with repolarization abnormality Abnormal ECG
[2017-04-07] MEDS ORDERED: Sodium Chloride 0.9% 500 ML IV SCH (05:45)
--- NOTE | 2017-04-07 07:39 | CP.PCM.DIS ---
Provider - Provider Date of Admission: 04/03/17 19:44 Attending physician: Yeni Duran MD Hospital Course - Lab Results Lab Results: Micro Results 04/04/17 01:30 Blood-Venous Blood Culture - Preliminary NO GROWTH AFTER 3 DAYS 04/04/17 01:15 Blood-Venous Blood Culture - Preliminary NO GROWTH AFTER 3 DAYS 04/03/17 23:30 Nose MRSA Culture (Admit) - Final MRSA NOT DETECTED 04/04/17 15:30 Urine Urine Culture - Final No Growth (<1,000 CFU/ML) Most Recent Lab Values WBC 7.9 10^3/ul (4.5-11.0) D 04/06/17 11:00 RBC 4.37 10^6/uL (3.5-6.1) 04/06/17 11:00 Hgb 11.7 g/dL (14.0-18.0) L 04/06/17 11:00 Hct 36.2 % (42.0-52.0) L 04/06/17 11:00 MCV 82.8 fl (80.0-105.0) 04/06/17 11:00 MCH 26.8 pg (25.0-35.0) 04/06/17 11:00 MCHC 32.3 g/dl (31.0-37.0) 04/06/17 11:00 RDW 15.1 % (11.5-14.5) H 04/06/17 11:00 Plt Count 153 10^3/uL (120.0-450.0) 04/06/17 11:00 MPV 11.2 fl (7.0-11.0) H 04/06/17 11:00 Gran % 63.8 % (50.0-68.0) 04/06/17 11:00 Lymph % (Auto) 21.6 % (22.0-35.0) L 04/06/17 11:00 [place] % (Auto) 9.6 % (1.0-6.0) H 04/06/17 11:00 Eos % (Auto) 4.5 % (1.5-5.0) 04/06/17 11:00 Baso % (Auto) 0.5 % (0.0-3.0) 04/06/17 11:00 Gran # 5.06 (1.4-6.5) 04/06/17 11:00 Lymph # (Auto) 1.7 (1.2-3.4) 04/06/17 11:00 [place] # (Auto) 0.8 (0.1-0.6) H 04/06/17 11:00 Eos # (Auto) 0.4 (0.0-0.7) 04/06/17 11:00 Baso # (Auto) 0.04 K/mm3 (0.0-2.0) 04/06/17 11:00 PT 13.4 SECONDS (9.4-12.5) H 04/03/17 18:30 INR 1.17 (0.93-1.08) H 04/03/17 18:30 APTT 27.6 Seconds (25.1-36.5) 04/03/17 18:30 pO2 40 mm/Hg (30-55) 04/04/17 04:00 VBG pH 7.38 (7.32-7.43) 04/04/17 04:00 VBG pCO2 45.0 (40-60) 04/04/17 04:00 VBG HCO3 26.6 mmol/l (21-28) 04/04/17 04:00 VBG Total CO2 28.0 mmol.L (22-28) 04/04/17 04:00 VBG O2 Sat (Calc) 80.5 % (40-65) H 04/04/17 04:00 VBG Base Excess 1.0 mmol/L (0.0-2.0) 04/04/17 04:00 VBG Potassium 3.1 mmol/L (3.6-5.2) L 04/04/17 04:00 Sodium 142.0 mmol/L (132-148) 04/04/17 04:00 Chloride 107.0 mmol/L (98-107) 04/04/17 04:00 Glucose 92 mg/dl (75-110) 04/04/17 04:00 Lactate 1.7 mmol/L (0.7-2.1) 04/04/17 04:00 FiO2 21.0 % 04/04/17 04:00 Sodium 147 mmol/L (132-148) 04/06/17 11:00 Potassium 3.9 mmol/L (3.6-5.0) 04/06/17 11:00 Chloride 115 mmol/L (98-107) H 04/06/17 11:00 Carbon Dioxide 22 mmol/L (21-33) 04/06/17 11:00 Anion Gap 14 (10-20) 04/06/17 11:00 BUN 19 mg/dL (7-21) 04/06/17 11:00 Creatinine 1.1 mg/dl (0.8-1.5) 04/06/17 11:00 Est GFR ( Amer) > 60 04/06/17 11:00 Est GFR (Non-Af Amer) > 60 04/06/17 11:00 Random Glucose 117 mg/dL (70-110) H 04/06/17 11:00 Calcium 9.9 mg/dL (8.4-10.5) 04/06/17 11:00 Phosphorus 3.1 mg/dL (2.5-4.5) 04/04/17 04:00 Magnesium 1.8 mg/dL (1.7-2.2) 04/05/17 14:00 Total Bilirubin 1.0 mg/dL (0.2-1.3) 04/06/17 11:00 AST 114 U/L (17-59) H 04/06/17 11:00 ALT 91 U/L (7-56) H 04/06/17 11:00 Alkaline Phosphatase 83 U/L (38-126) 04/06/17 11:00 Troponin I 0.04 ng/mL D 04/03/17 18:30 Total Protein 7.0 g/dL (5.8-8.3) 04/06/17 11:00 Albumin 3.2 g/dL (3.0-4.8) 04/06/17 11:00 Globulin 3.8 gm/dL 04/06/17 11:00 Albumin/Globulin Ratio 0.8 (1.1-1.8) L 04/06/17 11:00 Triglycerides 105 mg/dL (35-160) 04/04/17 04:00 Cholesterol 108 mg/dL (130-200) L 04/04/17 04:00 LDL Cholesterol Direct 37 mg/dL (0-129) 04/04/17 04:00 HDL Cholesterol 42 mg/dL (29-60) 04/04/17 04:00 Lipase 83 U/L (23-300) 04/03/17 18:30 Procalcitonin 1.14 NG/ML (0.19-0.49) H 04/04/17 04:00 TSH 3rd Generation 1.44 mIU/mL (0.46-4.68) 04/03/17 18:30 Venous Blood Potassium 3.1 mmol/L (3.6-5.2) L 04/04/17 04:00 Urine Color Yellow (YELLOW) 04/03/17 19:00 Urine Appearance Clear (CLEAR) 04/03/17 19:00 Urine pH 5.5 (4.7-8.0) 04/03/17 19:00 Ur Specific [place] >= 1.030 (1.005-1.035) 04/03/17 19:00 Urine Protein 100 mg/dL (<30 mg/dL) H 04/03/17 19:00 Urine Glucose (UA) Negative mg/dL (NEGATIVE) 04/03/17 19:00 Urine Ketones Negative mg/dL (NEGATIVE) 04/03/17 19:00 Urine Blood Negative (NEGATIVE) 04/03/17 19:00 Urine Nitrate Negative (NEGATIVE) 04/03/17 19:00 Urine Bilirubin Negative (NEGATIVE) 04/03/17 19:00 Urine Urobilinogen 0.2 E.U./dL (<1 E.U./dL) 04/03/17 19:00 Ur Leukocyte Esterase Negative Dwayne/uL (NEGATIVE) 04/03/17 19:00 Urine RBC 0 - 2 /hpf (0-2) 04/03/17 19:00 Urine WBC 1 - 3 /hpf (0-6) 04/03/17 19:00 Ur Epithelial Cells 0 - 2 /hpf (0-5) 04/03/17 19:00 Amorphous Sediment Few 04/03/17 19:00 Urine Bacteria Many (NEG) 04/03/17 19:00 Coarse Granular Casts Trace /hpf (0-2) H 04/03/17 19:00 Urine Other [place] 04/03/17 19:00 Hepatitis A IgM Ab Negative (NEGATIVE) 04/04/17 04:00 Hep Bs Antigen Negative (NEGATIVE) 04/04/17 04:00 Hep B Core IgM Ab Negative (NEGATIVE) 04/04/17 04:00 Hepatitis C Antibody Reactive (NEGATIVE) 04/04/17 04:00 - Hospital Course Hospital Course: Patient is a 66 year old male with a past medical history of 66 year old male with past medical history of seizures, 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 CT head w/o contrast: new hyperdense area of hemorrhage or hemorrhagic mass measuring 1.4 x1.2 x 1.1 cm; a new subcentimeter hyperdense focus of hemorrhage or hemorrhagic lesion visualized within right anterior ponds. Stable areas of hypodence encephalomalacia visualized within the left thalamus and basal ganglia. Extensie cerebral white matter hypodensity likely representing small vessel ischemic disease in a patient this age. Stable atrophy .Chest x-ray revealed pathcy of right lower lobe infiltrate with linear atelectasis and or scarring left retrocardiac region. Brain MRI reveals small hemorrhages seen in th right superior caudate head/caudate body junction and right anterior ponds. MRA patent arteries. MRA neck demonstrates with no evidence of occlusion or signficant stenosis. Focal hemorrhage adjacent to the right frontal horn which measures 14 mm in diameter which is unchanged from last CT head as well as a small focus of hemmorhage along the anterior surface smoking cessation discussed Discharge Exam - Head Exam Head Exam: ATRAUMATIC, NORMAL INSPECTION, NORMOCEPHALIC Discharge Plan - Follow Up Plan Condition: CRITICAL Disposition: HOME/ ROUTINE Additional Instructions: Discharge instructions 1. Echocardiogram showed aortic valve thickening possibly bicuspid aortic valve. Good dental care and oral health practice is strongly recommended. 2. Follow up with Dr. Muñoz within 1 week of discharge from rehabilitation. 3. Recommend smoking cessation and marijuana use cessation. Referrals: Ryan Muñoz MD [Staff Provider] -
[2017-04-07] MEDS: Pantoprazole 40 mg EC Tab PO SCH (08:00)
[2017-04-07] MEDS ORDERED: Verapamil 180 mg ER Tab PO SCH (10:00)
[2017-04-07] MEDS ORDERED: Verapamil 120 mg ER Tab PO SCH (10:00)
[2017-04-07] MEDS: cefTRIAXone 1 gm 1 GM/100 ML BAG IVPB SCH (10:19)
[2017-04-07] MEDS: Multivitamin With Minerals Tab PO SCH (10:20)
[2017-04-07 11:45] VITALS: RESP 18
--- NOTE | 2017-04-07 11:52 | CP.PCM.PN ---
Subjective - Date & Time of Evaluation Date of Evaluation: 04/07/17 Time of Evaluation: 09:40 - Subjective Subjective: Feeling well, still with somewhat slurred speech but better than previous days, refusing ALESIA. No fevers overnight. Objective - Vital Signs/Intake and Output Vital Signs (last 24 hours): Temp Pulse Resp BP Pulse Ox 97.4 F L 80 19 177/91 H 96 04/07/17 06:00 04/07/17 06:00 04/07/17 06:00 04/07/17 06:00 04/07/17 06:00 Intake and Output: 04/07/17 04/07/17 06:59 18:59 Intake Total 60 Output Total 50 Balance 10 - Medications Medications: Current Medications Albuterol/Ipratropium (Duoneb 3 Mg/0.5 Mg (3 Ml) Ud) 3 ml IH Q2H PRN PRN Reason: Shortness of Breath Atenolol (Tenormin) 50 mg PO DAILY [facility] Last Admin: 04/06/17 09:32 Dose: 50 mg Atorvastatin Calcium (Lipitor) 20 mg PO DIN [facility] Last Admin: 04/06/17 18:20 Dose: 20 mg Azithromycin (Zithromax) 500 mg PO DAILY [facility] PRN Reason: Protocol Stop: 04/09/17 14:46 Last Admin: 04/06/17 10:30 Dose: 500 mg Cyproheptadine HCl (Periactin) 4 mg PO HS [facility] Last Admin: 04/06/17 22:04 Dose: 4 mg Duloxetine HCl (Cymbalta) 30 mg PO DAILY [facility] Last Admin: 04/06/17 09:33 Dose: 30 mg Gabapentin (Neurontin) 800 mg PO TID [facility] Last Admin: 04/06/17 18:20 Dose: 800 mg Hydralazine HCl (Apresoline) 10 mg IVP Q6 PRN PRN Reason: SBP>150 Levetiracetam 750 mg/ Sodium (Chloride) 107.5 mls @ 460 mls/hr IV Q12 [facility] Last Admin: 04/06/17 22:02 Dose: 460 mls/hr Vancomycin HCl (Vancomycin 1gm) 1 gm in 250 mls @ 167 mls/hr IVPB Q12H [facility] PRN Reason: Protocol Last Admin: 04/06/17 23:51 Dose: 167 mls/hr Ceftriaxone Sodium (Rocephin 1 Gram Ivpb) 1 gm in 100 mls @ 100 mls/hr IVPB DAILY [facility] PRN Reason: Protocol Stop: 04/13/17 14:44 Last Admin: 04/06/17 09:34 Dose: 100 mls/hr Lisinopril (Zestril) 10 mg PO DAILY [facility] Last Admin: 04/06/17 09:33 Dose: 10 mg Multivitamins/Minerals (Therapeutic-M Tab) 1 tab PO DAILY [facility] Last Admin: 04/06/17 09:33 Dose: 1 tab Nicotine (Nicoderm Cq) 1 patch TD DAILY [facility] Last Admin: 04/06/17 09:34 Dose: 1 patch Pantoprazole Sodium (Protonix Ec Tab) 40 mg PO ACB [facility] Last Admin: 04/07/17 08:00 Dose: 40 mg Verapamil HCl (Calan Sr Tab) 180 mg PO DAILY [facility] - Labs Labs: 04/06/17 11:00 04/06/17 11:00 PT 13.4 SECONDS (9.4-12.5) H 04/03/17 18:30 INR 1.17 (0.93-1.08) H 04/03/17 18:30 APTT 27.6 Seconds (25.1-36.5) 04/03/17 18:30 - Constitutional Appears: Chronically Ill - Head Exam Head Exam: NORMAL INSPECTION - ENT Exam ENT Exam: Mucous Membranes Moist - Neck Exam Neck Exam: absent: Meningismus - Respiratory Exam Respiratory Exam: Decreased Breath Sounds - Cardiovascular Exam Cardiovascular Exam: +S1, +S2 - GI/Abdominal Exam GI & Abdominal Exam: Soft. absent: Tenderness Assessment and Plan - Assessment and Plan (Free Text) Plan: Assessment Severe sepsis with community-acquired pneumonia, clinically improving acute periventricular hemorrhage etiology to be determined history of CVA with right sided weakness dyslipidemia depression history of pneumonia CAD HTN history of seizures Plan on Vancomycin, Rocephin and Zithromax day 4 - when ready for discharge, he can be switched to PO Cefpodoxime and Doxycycline for another 3-5 days follow up HIV test 2D echo reviewed which shows moderate AI which was present 1 year ago - blood cx have been negative as well - less likely endocarditis as a source of the intra-cranial hemorrhage, but may need ALESIA to find other causes of embolic disease, but patient is refusing - told patient he needs to follow up with PMD
--- NOTE | 2017-04-07 12:22 | PN ---
DATE: 04/07/2017 REASON FOR CONSULTATION AND FOLLOWUP: Possible bicuspid aortic valve as per echo reading. The patient denies any chest pain or shortness of breath. SUBJECTIVE: Denies any chest pain, shortness of breath, or any palpitation. OBJECTIVE: GENERAL: Not in any apparent distress. VITAL SIGNS: Temperature afebrile, heart rate 89, blood pressure 177/91. HEENT: PERRLA, intact. NECK: Supple. No carotid bruit. No thyromegaly. CHEST: Clear to auscultation. HEART: S1 and S2, regular. ABDOMEN: Soft. EXTREMITIES: Clubbing and cyanosis negative. LABORATORY DATA: Blood workup as follows: WBC 7.9, hemoglobin 11.7, hematocrit 36.2, platelet count 153. Chemistry shows sodium 147, potassium 3.9, chloride 115, carbon dioxide 22, anion gap of 14. BUN 19, creatinine 1.1. IMPRESSION: Admitted with altered mental status; history cerebrovascular accident; history of right-sided weakness, upper and lower extremity; hypertension; hyperlipidemia; history of paroxysmal atrial fibrillation, but not this admission. Before, patient was in history of atrial fibrillation. Now, the patient is in normal sinus. Not on anticoagulation because last time the patient was in sinus. Cardiac consult was called because of bicuspid aortic valve, most recent echo suggestive, but previous echo did not show bicuspid aortic valve. Most recent CAT scan shows intracerebral bleed and not a candidate for anticoagulation and the patient is also in normal sinus. RECOMMENDATION: Continue rehab. We will review echo to see definite the patient has a bicuspid aortic valve or not. Interim, continue atorvastatin, continue verapamil 120 mg daily. We will increase to 180 mg daily and p.r.n. hydralazine. We will follow with you. Continue beta-kaden as well for preventing to go back into AFib. Overall, the patient's condition is critical, long-term prognosis is guarded. Code status is DNR/DNI. Again, not a candidate for long-term anticoagulation because of the recent bleed and though the patient is in normal sinus. Continue hydralazine p.r.n. for systolic more than 150 to prevent further extension of the bleed.. Consider discontinuing telemetry. Thank you Dr. Duran for providing us the opportunity in taking care of the patient, Dario Escamilla. Nilsa Hien MD [facility] # [id number]
[2017-04-07] MEDS: Vancomycin 1gm in NS 250ml 1 GM/250 ML BAG IVPB SCH (13:00)
--- NOTE | 2017-04-07 14:25 | CP.PCM.PN ---
Subjective - Date & Time of Evaluation Date of Evaluation: 04/07/17 Time of Evaluation: 09:40 - Subjective Subjective: Neuro progress note: Pt seen and examined at bedside. No acute events overnight. Pt still aphasic and dysarthric but his speech has some improvement compared to yesterday. Follows commands. 12 Point ROS performed and negative other than stated above Objective - Vital Signs/Intake and Output Vital Signs (last 24 hours): Temp Pulse Resp BP Pulse Ox 98.5 F 81 18 167/98 H 96 04/07/17 11:45 04/07/17 11:45 04/07/17 11:45 04/07/17 11:45 04/07/17 06:00 Intake and Output: 04/07/17 04/07/17 06:59 18:59 Intake Total 60 Output Total 50 Balance 10 - Medications Medications: Current Medications Albuterol/Ipratropium (Duoneb 3 Mg/0.5 Mg (3 Ml) Ud) 3 ml IH Q2H PRN PRN Reason: Shortness of Breath Atenolol (Tenormin) 50 mg PO DAILY [facility] Last Admin: 04/07/17 10:19 Dose: 50 mg Atorvastatin Calcium (Lipitor) 20 mg PO DIN [facility] Last Admin: 04/06/17 18:20 Dose: 20 mg Azithromycin (Zithromax) 500 mg PO DAILY [facility] PRN Reason: Protocol Stop: 04/09/17 14:46 Last Admin: 04/07/17 10:20 Dose: 500 mg Cyproheptadine HCl (Periactin) 4 mg PO HS [facility] Last Admin: 04/06/17 22:04 Dose: 4 mg Duloxetine HCl (Cymbalta) 30 mg PO DAILY [facility] Last Admin: 04/07/17 10:17 Dose: 30 mg Gabapentin (Neurontin) 800 mg PO TID [facility] Last Admin: 04/07/17 10:18 Dose: 800 mg Hydralazine HCl (Apresoline) 10 mg IVP Q6 PRN PRN Reason: SBP>150 Levetiracetam 750 mg/ Sodium (Chloride) 107.5 mls @ 460 mls/hr IV Q12 [facility] Last Admin: 04/07/17 10:17 Dose: 460 mls/hr Vancomycin HCl (Vancomycin 1gm) 1 gm in 250 mls @ 167 mls/hr IVPB Q12H [facility] PRN Reason: Protocol Last Admin: 04/06/17 23:51 Dose: 167 mls/hr Ceftriaxone Sodium (Rocephin 1 Gram Ivpb) 1 gm in 100 mls @ 100 mls/hr IVPB DAILY [facility] PRN Reason: Protocol Stop: 04/13/17 14:44 Last Admin: 04/07/17 10:19 Dose: 100 mls/hr Lisinopril (Zestril) 10 mg PO DAILY [facility] Last Admin: 04/07/17 10:20 Dose: 10 mg Multivitamins/Minerals (Therapeutic-M Tab) 1 tab PO DAILY [facility] Last Admin: 04/07/17 10:20 Dose: 1 tab Nicotine (Nicoderm Cq) 1 patch TD DAILY [facility] Last Admin: 04/07/17 10:18 Dose: 1 patch Pantoprazole Sodium (Protonix Ec Tab) 40 mg PO ACB [facility] Last Admin: 04/07/17 08:00 Dose: 40 mg Verapamil HCl (Calan Sr Tab) 180 mg PO DAILY [facility] Last Admin: 04/07/17 10:16 Dose: 180 mg - Labs Labs: 04/06/17 11:00 04/06/17 11:00 PT 13.4 SECONDS (9.4-12.5) H 04/03/17 18:30 INR 1.17 (0.93-1.08) H 04/03/17 18:30 APTT 27.6 Seconds (25.1-36.5) 04/03/17 18:30 - Constitutional Appears: No Acute Distress - Neurological Exam Neurological Exam: Alert, Awake, Oriented x3 Neuro motor strength exam: Left Upper Extremity: 4, Right Upper Extremity: 0, Left Lower Extremity: 4, Right Lower Extremity: 0 Assessment and Plan - Assessment and Plan (Free Text) Assessment: 66-year-old man with a past medical history of epilepsy, previous CVA with residual aphasia and right-side hemiplegia, HTN, Atrial Fibrillation (not on anticoagulation), who was brought in for a change in his mental status 2/2 Intracerebral hemorrhage. - Recommend ALESIA to the patient to r/o endocardittis but patient cont to refuse - Continue Keppra 750mg Q12 - HOB elevated to 35-45 degrees - Keep SBP 100-160 mm Hg - SCD for DVT Px - PT/OT eval and treatment and Speech therapy Case and plan was reviewed and discussed with Dr Arguello.
--- NOTE | 2017-04-07 15:53 | CP.PCM.DIS ---
<Cecil Reyes - Last Filed: 04/07/17 19:27> Provider - Provider Date of Admission: 04/03/17 19:44 Attending physician: Yeni Duran MD Consults: Neurology: Dr. Osuna Infectious disease: Dr. Littlejohn Palliative: Idalmis Paramontbob Cardiology: Dr. Hein Time Spent in preparation of Discharge (in minutes): 75 Diagnosis - Discharge Diagnosis (1) CVA (cerebral vascular accident) Status: Acute Priority: High (2) Altered mental status Status: Acute Priority: High (3) Pneumonia Status: Acute Priority: High (4) Hypertension Status: Chronic Priority: High Hospital Course - Lab Results Lab Results: Micro Results 04/04/17 01:30 Blood-Venous Blood Culture - Preliminary NO GROWTH AFTER 3 DAYS 04/04/17 01:15 Blood-Venous Blood Culture - Preliminary NO GROWTH AFTER 3 DAYS 04/03/17 23:30 Nose MRSA Culture (Admit) - Final MRSA NOT DETECTED 04/04/17 15:30 Urine Urine Culture - Final No Growth (<1,000 CFU/ML) Most Recent Lab Values WBC 7.9 10^3/ul (4.5-11.0) D 04/06/17 11:00 RBC 4.37 10^6/uL (3.5-6.1) 04/06/17 11:00 Hgb 11.7 g/dL (14.0-18.0) L 04/06/17 11:00 Hct 36.2 % (42.0-52.0) L 04/06/17 11:00 MCV 82.8 fl (80.0-105.0) 04/06/17 11:00 MCH 26.8 pg (25.0-35.0) 04/06/17 11:00 MCHC 32.3 g/dl (31.0-37.0) 04/06/17 11:00 RDW 15.1 % (11.5-14.5) H 04/06/17 11:00 Plt Count 153 10^3/uL (120.0-450.0) 04/06/17 11:00 MPV 11.2 fl (7.0-11.0) H 04/06/17 11:00 Gran % 63.8 % (50.0-68.0) 04/06/17 11:00 Lymph % (Auto) 21.6 % (22.0-35.0) L 04/06/17 11:00 Knott % (Auto) 9.6 % (1.0-6.0) H 04/06/17 11:00 Eos % (Auto) 4.5 % (1.5-5.0) 04/06/17 11:00 Baso % (Auto) 0.5 % (0.0-3.0) 04/06/17 11:00 Gran # 5.06 (1.4-6.5) 04/06/17 11:00 Lymph # (Auto) 1.7 (1.2-3.4) 04/06/17 11:00 Knott # (Auto) 0.8 (0.1-0.6) H 04/06/17 11:00 Eos # (Auto) 0.4 (0.0-0.7) 04/06/17 11:00 Baso # (Auto) 0.04 K/mm3 (0.0-2.0) 04/06/17 11:00 PT 13.4 SECONDS (9.4-12.5) H 04/03/17 18:30 INR 1.17 (0.93-1.08) H 04/03/17 18:30 APTT 27.6 Seconds (25.1-36.5) 04/03/17 18:30 pO2 40 mm/Hg (30-55) 04/04/17 04:00 VBG pH 7.38 (7.32-7.43) 04/04/17 04:00 VBG pCO2 45.0 (40-60) 04/04/17 04:00 VBG HCO3 26.6 mmol/l (21-28) 04/04/17 04:00 VBG Total CO2 28.0 mmol.L (22-28) 04/04/17 04:00 VBG O2 Sat (Calc) 80.5 % (40-65) H 04/04/17 04:00 VBG Base Excess 1.0 mmol/L (0.0-2.0) 04/04/17 04:00 VBG Potassium 3.1 mmol/L (3.6-5.2) L 04/04/17 04:00 Sodium 142.0 mmol/L (132-148) 04/04/17 04:00 Chloride 107.0 mmol/L (98-107) 04/04/17 04:00 Glucose 92 mg/dl (75-110) 04/04/17 04:00 Lactate 1.7 mmol/L (0.7-2.1) 04/04/17 04:00 FiO2 21.0 % 04/04/17 04:00 Sodium 147 mmol/L (132-148) 04/06/17 11:00 Potassium 3.9 mmol/L (3.6-5.0) 04/06/17 11:00 Chloride 115 mmol/L (98-107) H 04/06/17 11:00 Carbon Dioxide 22 mmol/L (21-33) 04/06/17 11:00 Anion Gap 14 (10-20) 04/06/17 11:00 BUN 19 mg/dL (7-21) 04/06/17 11:00 Creatinine 1.1 mg/dl (0.8-1.5) 04/06/17 11:00 Est GFR ( Amer) > 60 04/06/17 11:00 Est GFR (Non-Af Amer) > 60 04/06/17 11:00 Random Glucose 117 mg/dL (70-110) H 04/06/17 11:00 Calcium 9.9 mg/dL (8.4-10.5) 04/06/17 11:00 Phosphorus 3.1 mg/dL (2.5-4.5) 04/04/17 04:00 Magnesium 1.8 mg/dL (1.7-2.2) 04/05/17 14:00 Total Bilirubin 1.0 mg/dL (0.2-1.3) 04/06/17 11:00 AST 114 U/L (17-59) H 04/06/17 11:00 ALT 91 U/L (7-56) H 04/06/17 11:00 Alkaline Phosphatase 83 U/L (38-126) 04/06/17 11:00 Troponin I 0.04 ng/mL D 04/03/17 18:30 Total Protein 7.0 g/dL (5.8-8.3) 04/06/17 11:00 Albumin 3.2 g/dL (3.0-4.8) 04/06/17 11:00 Globulin 3.8 gm/dL 04/06/17 11:00 Albumin/Globulin Ratio 0.8 (1.1-1.8) L 04/06/17 11:00 Triglycerides 105 mg/dL (35-160) 04/04/17 04:00 Cholesterol 108 mg/dL (130-200) L 04/04/17 04:00 LDL Cholesterol Direct 37 mg/dL (0-129) 04/04/17 04:00 HDL Cholesterol 42 mg/dL (29-60) 04/04/17 04:00 Lipase 83 U/L (23-300) 04/03/17 18:30 Procalcitonin 1.14 NG/ML (0.19-0.49) H 04/04/17 04:00 TSH 3rd Generation 1.44 mIU/mL (0.46-4.68) 04/03/17 18:30 Venous Blood Potassium 3.1 mmol/L (3.6-5.2) L 04/04/17 04:00 Urine Color Yellow (YELLOW) 04/03/17 19:00 Urine Appearance Clear (CLEAR) 04/03/17 19:00 Urine pH 5.5 (4.7-8.0) 04/03/17 19:00 Ur Specific [place] >= 1.030 (1.005-1.035) 04/03/17 19:00 Urine Protein 100 mg/dL (<30 mg/dL) H 04/03/17 19:00 Urine Glucose (UA) Negative mg/dL (NEGATIVE) 04/03/17 19:00 Urine Ketones Negative mg/dL (NEGATIVE) 04/03/17 19:00 Urine Blood Negative (NEGATIVE) 04/03/17 19:00 Urine Nitrate Negative (NEGATIVE) 04/03/17 19:00 Urine Bilirubin Negative (NEGATIVE) 04/03/17 19:00 Urine Urobilinogen 0.2 E.U./dL (<1 E.U./dL) 04/03/17 19:00 Ur Leukocyte Esterase Negative Dwayne/uL (NEGATIVE) 04/03/17 19:00 Urine RBC 0 - 2 /hpf (0-2) 04/03/17 19:00 Urine WBC 1 - 3 /hpf (0-6) 04/03/17 19:00 Ur Epithelial Cells 0 - 2 /hpf (0-5) 04/03/17 19:00 Amorphous Sediment Few 04/03/17 19:00 Urine Bacteria Many (NEG) 04/03/17 19:00 Coarse Granular Casts Trace /hpf (0-2) H 04/03/17 19:00 Urine Other Uyeast 04/03/17 19:00 Hepatitis A IgM Ab Negative (NEGATIVE) 04/04/17 04:00 Hep Bs Antigen Negative (NEGATIVE) 04/04/17 04:00 Hep B Core IgM Ab Negative (NEGATIVE) 04/04/17 04:00 Hepatitis C Antibody Reactive (NEGATIVE) 04/04/17 04:00 - Hospital Course Hospital Course: Patient is a 66 year old male with a past medical history of 66 year old male with past medical history of seizures, 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 Imaging was ordered upon arrival to the hospital. CT head without contrast revealed new hyper dense area of hemorrhage or hemorrhagic mass measuring 1.4 x1.2 x 1.1 cm; a new subcentimeter hyperdense focus of hemorrhage or hemorrhagic lesion visualized within right anterior ponds. Stable areas of hypodense encephalomalacia visualized within the left thalamus and basal ganglia. Extensive cerebral white matter hypodensity likely representing small vessel ischemic disease in a patient this age. Stable atrophy .Chest x- ray revealed pathcy of right lower lobe infiltrate with linear atelectasis and or scarring left retrocardiac region. Brain MRI reveals small hemorrhages seen in the right superior caudate head/caudate body junction and right anterior ponds. MRA patent arteries. MRA neck demonstrates with no evidence of occlusion or significant stenosis. Focal hemorrhage adjacent to the right frontal horn which measures 14 mm in diameter which is unchanged from last CT head as well as a small focus of hemmorhage along the anterior surface. Other tests such as echocardiogram were ordered to determine a source of infection versus cerebrovascular accident. Once patient began to recover from his cerebrovascular incident, it was imperative to get physical therapy involved to determine to where patient would be discharged. After evaluating patient it was determined patient would benefit from home with services or subacute rehabilitation. Despite explaining to the patient the benefit he would receive from subacute rehabilitation patient refused and insisted on going home. Echocardiogram showed aortic valve thickening possibly bicuspid aortic valve. Good dental care and oral health practice is strongly recommended. Follow up with Dr. Muñoz within 1 week of discharge from rehabilitation. Patient has paroxysmal atrial fibrillation. Neurology recommend to hold aspirin for at least 1 week. Please follow up with Dr. Muñoz regarding anticoagulation options , risk and benefit. Tobacco, marijuana, and alcohol cessation was recommended. Will discharge home with antibiotics: vantin and doxycycline. Finish the full course of antibiotics. Patient was also instructed to follow up with neurologist , Dr. Osuna, for stroke. Patient was in agreement with plan, and then discharged. Case discussed and reviewed with Dr. Renee Reyes PGY1 Discharge Exam - Head Exam Head Exam: NORMAL INSPECTION - Eye Exam Eye Exam: EOMI, Normal appearance Pupil Exam: NORMAL ACCOMODATION - ENT Exam ENT Exam: Mucous Membranes Moist, Normal Exam - Neck Exam Neck exam: Lymphadenopathy - Respiratory Exam Respiratory Exam: Clear to PA & Lateral, NORMAL BREATHING PATTERN, UNREMARKABLE - Cardiovascular Exam Cardiovascular Exam: REGULAR RHYTHM, +S1, +S2 - GI/Abdominal Exam GI & Abdominal Exam: Normal Bowel Sounds, Unremarkable - Neurological Exam Neurological exam: Alert, CN II-XII Intact, Oriented x3 Additional comments: right sided hemiplegia - Psychiatric Exam Psychiatric exam: Normal Affect, Normal Mood - Skin Skin Exam: Intact, Normal Color, Warm Discharge Plan - Discharge Medications Prescriptions: Albuterol HFA [Ventolin HFA 90 mcg/actuation (8 g)] 2 puff IH [id number] #1 puff Atenolol [Tenormin] 50 mg PO DAILY 14 Days #14 tab Atorvastatin [Lipitor] 20 mg PO DIN #14 tab Cefpodoxime [Vantin] 200 mg PO BID 4 Days #8 tab Cyproheptadine [Periactin] 4 mg PO HS 14 Days #14 tab Doxycycline Hyclate 100 mg PO BID 4 Days #8 capsule Gabapentin [Neurontin] 800 mg PO TID #30 tab Levetiracetam [Keppra] 750 mg PO BID #60 tablet Lisinopril [Zestril] 10 mg PO DAILY 14 Days #14 tab Multivitamin/Iron/Folic Acid [Certavite-Antioxidant Tablet] 1 tab PO DAILY 14 Days #14 tablet Verapamil [Calan SR Tab] 180 mg PO DAILY #30 tab - Follow Up Plan Condition: CRITICAL Disposition: HOME/ ROUTINE Instructions: Heart Healthy Diet, Quitting Smoking for Older Adults, Pneumonia , Adult (DC), Quitting Smoking Additional Instructions: Discharge instructions 1. Echocardiogram showed aortic valve thickening possibly bicuspid aortic valve. Good dental care and oral health practice is strongly recommended. 2. Follow up with Dr. Muñoz within 1 week of discharge from rehabilitation. 3. Patient has paroxysmal atrial fibrillation. Neurology recommend to hold aspirin for at least 1 week. Please follow up with Dr. Muñoz regarding anticoagulation options, risk and benefit. 4. Recommend smoking cessation and marijuana use cessation. 5. Will discharge home with antibiotics. vantin and doxycycline. Finish the full course of antibiotics 6. Follow up with neurolgist, Dr. Osuna, for stroke Med changes Antibiotics Keppra increased to 750 twice daily Verapamil increase to 180 daily Continue atenolol, lipitor, periactin, cymbalta, neurontin, lisinipril, and multivitamin Continue albuterol as needed Referrals: Keanu Osuna MD [Staff Provider] - Ryan Muñoz MD [Staff Provider] - <Yeni Duran - Last Filed: 04/08/17 07:34> Provider - Provider Date of Admission: 04/03/17 19:44 Attending physician: Yeni Duran MD Hospital Course - Lab Results Lab Results: Micro Results 04/04/17 01:30 Blood-Venous Blood Culture - Preliminary NO GROWTH AFTER 4 DAYS 04/04/17 01:15 Blood-Venous Blood Culture - Preliminary NO GROWTH AFTER 4 DAYS 04/03/17 23:30 Nose MRSA Culture (Admit) - Final MRSA NOT DETECTED 04/04/17 15:30 Urine Urine Culture - Final No Growth (<1,000 CFU/ML) Most Recent Lab Values WBC 7.9 10^3/ul (4.5-11.0) D 04/06/17 11:00 RBC 4.37 10^6/uL (3.5-6.1) 04/06/17 11:00 Hgb 11.7 g/dL (14.0-18.0) L 04/06/17 11:00 Hct 36.2 % (42.0-52.0) L 04/06/17 11:00 MCV 82.8 fl (80.0-105.0) 04/06/17 11:00 MCH 26.8 pg (25.0-35.0) 04/06/17 11:00 MCHC 32.3 g/dl (31.0-37.0) 04/06/17 11:00 RDW 15.1 % (11.5-14.5) H 04/06/17 11:00 Plt Count 153 10^3/uL (120.0-450.0) 04/06/17 11:00 MPV 11.2 fl (7.0-11.0) H 04/06/17 11:00 Gran % 63.8 % (50.0-68.0) 04/06/17 11:00 Lymph % (Auto) 21.6 % (22.0-35.0) L 04/06/17 11:00 Knott % (Auto) 9.6 % (1.0-6.0) H 04/06/17 11:00 Eos % (Auto) 4.5 % (1.5-5.0) 04/06/17 11:00 Baso % (Auto) 0.5 % (0.0-3.0) 04/06/17 11:00 Gran # 5.06 (1.4-6.5) 04/06/17 11:00 Lymph # (Auto) 1.7 (1.2-3.4) 04/06/17 11:00 Knott # (Auto) 0.8 (0.1-0.6) H 04/06/17 11:00 Eos # (Auto) 0.4 (0.0-0.7) 04/06/17 11:00 Baso # (Auto) 0.04 K/mm3 (0.0-2.0) 04/06/17 11:00 PT 13.4 SECONDS (9.4-12.5) H 04/03/17 18:30 INR 1.17 (0.93-1.08) H 04/03/17 18:30 APTT 27.6 Seconds (25.1-36.5) 04/03/17 18:30 pO2 40 mm/Hg (30-55) 04/04/17 04:00 VBG pH 7.38 (7.32-7.43) 04/04/17 04:00 VBG pCO2 45.0 (40-60) 04/04/17 04:00 VBG HCO3 26.6 mmol/l (21-28) 04/04/17 04:00 VBG Total CO2 28.0 mmol.L (22-28) 04/04/17 04:00 VBG O2 Sat (Calc) 80.5 % (40-65) H 04/04/17 04:00 VBG Base Excess 1.0 mmol/L (0.0-2.0) 04/04/17 04:00 VBG Potassium 3.1 mmol/L (3.6-5.2) L 04/04/17 04:00 Sodium 142.0 mmol/L (132-148) 04/04/17 04:00 Chloride 107.0 mmol/L (98-107) 04/04/17 04:00 Glucose 92 mg/dl (75-110) 04/04/17 04:00 Lactate 1.7 mmol/L (0.7-2.1) 04/04/17 04:00 FiO2 21.0 % 04/04/17 04:00 Sodium 147 mmol/L (132-148) 04/06/17 11:00 Potassium 3.9 mmol/L (3.6-5.0) 04/06/17 11:00 Chloride 115 mmol/L (98-107) H 04/06/17 11:00 Carbon Dioxide 22 mmol/L (21-33) 04/06/17 11:00 Anion Gap 14 (10-20) 04/06/17 11:00 BUN 19 mg/dL (7-21) 04/06/17 11:00 Creatinine 1.1 mg/dl (0.8-1.5) 04/06/17 11:00 Est GFR ( Amer) > 60 04/06/17 11:00 Est GFR (Non-Af Amer) > 60 04/06/17 11:00 Random Glucose 117 mg/dL (70-110) H 04/06/17 11:00 Calcium 9.9 mg/dL (8.4-10.5) 04/06/17 11:00 Phosphorus 3.1 mg/dL (2.5-4.5) 04/04/17 04:00 Magnesium 1.8 mg/dL (1.7-2.2) 04/05/17 14:00 Total Bilirubin 1.0 mg/dL (0.2-1.3) 04/06/17 11:00 AST 114 U/L (17-59) H 04/06/17 11:00 ALT 91 U/L (7-56) H 04/06/17 11:00 Alkaline Phosphatase 83 U/L (38-126) 04/06/17 11:00 Troponin I 0.04 ng/mL D 04/03/17 18:30 Total Protein 7.0 g/dL (5.8-8.3) 04/06/17 11:00 Albumin 3.2 g/dL (3.0-4.8) 04/06/17 11:00 Globulin 3.8 gm/dL 04/06/17 11:00 Albumin/Globulin Ratio 0.8 (1.1-1.8) L 04/06/17 11:00 Triglycerides 105 mg/dL (35-160) 04/04/17 04:00 Cholesterol 108 mg/dL (130-200) L 04/04/17 04:00 LDL Cholesterol Direct 37 mg/dL (0-129) 04/04/17 04:00 HDL Cholesterol 42 mg/dL (29-60) 04/04/17 04:00 Lipase 83 U/L (23-300) 04/03/17 18:30 Procalcitonin 1.14 NG/ML (0.19-0.49) H 04/04/17 04:00 TSH 3rd Generation 1.44 mIU/mL (0.46-4.68) 04/03/17 18:30 Venous Blood Potassium 3.1 mmol/L (3.6-5.2) L 04/04/17 04:00 Urine Color Yellow (YELLOW) 04/03/17 19:00 Urine Appearance Clear (CLEAR) 04/03/17 19:00 Urine pH 5.5 (4.7-8.0) 04/03/17 19:00 Ur Specific [place] >= 1.030 (1.005-1.035) 04/03/17 19:00 Urine Protein 100 mg/dL (<30 mg/dL) H 04/03/17 19:00 Urine Glucose (UA) Negative mg/dL (NEGATIVE) 04/03/17 19:00 Urine Ketones Negative mg/dL (NEGATIVE) 04/03/17 19:00 Urine Blood Negative (NEGATIVE) 02/17/18 19:00 Urine Nitrate Negative (NEGATIVE) 04/03/17 19:00 Urine Bilirubin Negative (NEGATIVE) 04/03/17 19:00 Urine Urobilinogen 0.2 E.U./dL (<1 E.U./dL) 04/03/17 19:00 Ur Leukocyte Esterase Negative Dwayne/uL (NEGATIVE) 04/03/17 19:00 Urine RBC 0 - 2 /hpf (0-2) 04/03/17 19:00 Urine WBC 1 - 3 /hpf (0-6) 04/03/17 19:00 Ur Epithelial Cells 0 - 2 /hpf (0-5) 04/03/17 19:00 Amorphous Sediment Few 04/03/17 19:00 Urine Bacteria Many (NEG) 04/03/17 19:00 Coarse Granular Casts Trace /hpf (0-2) H 04/03/17 19:00 Urine Other Uyeast 04/03/17 19:00 Hepatitis A IgM Ab Negative (NEGATIVE) 04/04/17 04:00 Hep Bs Antigen Negative (NEGATIVE) 04/04/17 04:00 Hep B Core IgM Ab Negative (NEGATIVE) 04/04/17 04:00 Hepatitis C Antibody Reactive (NEGATIVE) 04/04/17 04:00 Attending/Attestation - Attestation I have personally seen and examined this patient.: Yes I have fully participated in the care of the patient.: Yes I have reviewed all pertinent clinical information, including history, physical exam and plan: Yes Notes (Text): 04/08/17 07:32 attending note; Patient seen and examined with resident. Patient is a 66 year old male with history of seizures, CVA with residual aphasia and Right sided weakness, hypertension, cerebral amyloid angiopathy, Hep C (known and unsure if its treated or not) and paroxysmal atrial flutter only on aspirin who was brought by the family for AMS and found to have intracerebral hemorrhage. CT head shows hemorrhage of the right anterior jakub. MRI of the brain showed multiple Punctate hemorrhages. MRA is negative. neurology recommending possible ALESIA. Patient refused. Patient is clinically improving. PT evaluation appreciated. Recommending subacute rehabilitation. Patient with expressive aphasia. Aspiration precautions explained to the patient. echocardiogram showed normal ejection fraction with bicuspid aortic valve. cardiology evaluation appreciated. Medical treatment recommended. Right lower lobe pneumonia.Treated with IV Rocephin and vancomycin and Zithromax. Clinically stable. Patient is DNR/DNI. health care proxy is Yomaira/next of kin. Patient refused to go to subacute rehabilitation. Homecare arrangement will be done by case work aide. Patient's next of kin Yomaira is aware of this discharge planning. Upon discharge patient will follow up with Dr. Whitman.
[2017-04-07 17:30] VITALS: BP 133/80; PULSE 67; TEMP 98; O2SAT 97
== END 2017-04-07 19:14 | disposition home or self-care (01) | DRG 584 ==
LOC: ED 17:10 → ERH 19:44 → CCU 23:07 → 2RNO 04-06 10:51
PROVIDERS: ADMIT Internal Medicine; ATTEND Internal Medicine
DX: A41.9 Sepsis, unspecified organism (principal); I61.9 Nontraumatic intracerebral hemorrhage, unspecified; E87.2 Acidosis; J18.9 Pneumonia, unspecified organism; G93.89 Other specified disorders of brain; E86.0 Dehydration; B19.20 Unspecified viral hepatitis C without hepatic coma; Q23.1 Congenital insufficiency of aortic valve; R65.20 Severe sepsis without septic shock; I69.351 Hemiplegia and hemiparesis following cerebral infarction affecting right dominant side; I69.320 Aphasia following cerebral infarction; G40.909 Epilepsy, unspecified, not intractable, without status epilepticus; E78.00 Pure hypercholesterolemia, unspecified; I10 Essential (primary) hypertension; I25.10 Atherosclerotic heart disease of native coronary artery without angina pectoris; F12.90 Cannabis use, unspecified, uncomplicated; F32.9 Major depressive disorder, single episode, unspecified; F17.200 Nicotine dependence, unspecified, uncomplicated; Z66 Do not resuscitate; Z87.01 Personal history of pneumonia (recurrent); I25.2 Old myocardial infarction

== ENCOUNTER 2017-06-08 10:10 | Emergency (ER) | payer OTHER ==
[2017-06-08 10:10] VITALS: PULSE 104
[2017-06-08 10:24] VITALS: BMI 18.8
[2017-06-08] MEDS ORDERED: Iohexol 240 (50 ml) ONE (12:43)
[2017-06-08 12:58] LABS: URINE APPEARANCE CLEAR (CLEAR); URINE BILIRUBIN NEGATIVE (NEGATIVE); URINE BLOOD TRACE-LYSED (NEGATIVE); URINE COLOR YELLOW (YELLOW); URINE GLUCOSE (UA) NEGATIVE (NEGATIVE); URINE LEUKOCYTE ESTERASE NEGATIVE Leu/uL (NEGATIVE); URINE PROTEIN 100 mg/dL (<30 mg/dL); URINE UROBILINOGEN 0.2 E.U./dL (<1 E.U./dL)
[2017-06-08 13:04] LABS: BASO # 0.03 K/mm3 (0.0-2.0); BASO % 0.5 % (0.0-3.0); EOS # 0.2 (0.0-0.7); EOS % 3.4 % (1.5-5.0); GRAN # 3.61 (1.4-6.5); GRAN % 56.1 % (50.0-68.0); HEMOGLOBIN 14.9 g/dL (14.0-18.0); LYMPH # 1.9 (1.2-3.4); LYMPH % 29.8 % (22.0-35.0); MEAN CORPUSCULAR HEMOGLOBIN 26.8 pg (25.0-35.0); MEAN CORPUSCULAR HGB CONC 33.5 g/dl (31.0-37.0); MEAN PLATELET VOLUME 10.8 fl (7.0-11.0); MONO # 0.7 (0.1-0.6); MONO % 10.2 % (1.0-6.0); RBC 5.56 10^6/uL (3.5-6.1); RED CELL DISTRIBUTION WIDTH 15.4 % (11.5-14.5); WHITE BLOOD COUNT 6.4 10^3/ul (4.5-11.0)
[2017-06-08 13:09] LABS: URINE BACTERIA MANY (NEG); URINE EPITHELIAL CELLS 0 - 2 /hpf (0-5)
[2017-06-08 13:10] LABS: URINE COARSE GRANULAR CAST TRACE /hpf (0-2)
--- NOTE | 2017-06-08 13:46 | US ---
HISTORY: constipation COMPARISON: None. TECHNIQUE: Sonographic evaluation of the abdomen. FINDINGS: LIVER: Measures 14.1 cm. Normal echogenicity of the liver parenchyma. No mass. No intrahepatic bile duct dilatation. GALLBLADDER: Unremarkable. No gallstones. COMMON BILE DUCT: Measures 8 mm. Mildly dilated. No evidence of choledocholithiasis. PANCREAS: Unremarkable as visualized. No mass. No ductal dilatation. RIGHT KIDNEY: Measures 9.1cm. Normal echogenicity. No calculus, mass, or hydronephrosis. LEFT KIDNEY: Measures 9.7cm. Normal echogenicity. No calculus, mass, or hydronephrosis. SPLEEN: Normal in size and contour. No mass. AORTA: No aneurysmal dilatation. IVC: Unremarkable. OTHER FINDINGS: None. IMPRESSION: Mild dilatation of common bile duct to 8 mm diameter. Nonspecific. No accompanying intrahepatic bile duct dilatation. No evidence of cholelithiasis or cholecystitis. Otherwise unremarkable examination.
--- NOTE | 2017-06-08 14:21 | ED PDOC ---
Arrival/HPI - General Chief Complaint: GI Problem Time Seen by Provider: 06/08/17 12:24 Historian: Patient - History of Present Illness Narrative History of Present Illness (Text): 06/08/17 14:17 Pt is a 66 yr old male BIBA with past medical history of CVA and right side hemiplegia and dysphasia, presents to the ED for failure to have a bowel movement for the past 3-4 days. Pt states that he does not have pain or abdominal discomfort; denies cp, sob, fever, n/v/d, GIB, back pain or any other complaints. Time/Duration: Prior to Arrival Symptom Onset: Gradual Symptom Course: Unchanged Quality: Unable to Describe Severity Level: 2 Activities at Onset: Rest Context: Home Past Medical History - Provider Review Nursing Documentation Reviewed: Yes - Travel History Have you recently traveled outside [place] w/in the past 3 mons?: No - Infectious Disease Hx of Infectious Diseases: None - Tetanus Immunization Tetanus Immunization: Unknown - Cardiac Hx Cardiac Disorders: Yes Hx Hypertension: Yes - Pulmonary Hx Pneumonia: Yes - Neurological HX Cerebrovascular Accident: Yes - HEENT Hx HEENT Disorder: Yes (impairred speech) - Renal Hx Renal Disorder: No - Endocrine/Metabolic Hx Endocrine Disorders: No - Hematological/Oncological Hx Blood Disorders: No - Integumentary Other/Comment: healed sacral wound, mult discolorations ble - Musculoskeletal/Rheumatological Hx Falls: Yes - Gastrointestinal Hx Gastrointestinal Disorders: No - Genitourinary/Gynecological Hx Genitourinary Disorders: No - Psychiatric Hx Psychophysiologic Disorder: Yes Hx Depression: Yes Hx Substance Use: No - Surgical History Hx Abdominal Aortic Aneurysm Repair: No - Anesthesia Hx Anesthesia: Yes Hx Anesthesia Reactions: No Hx Malignant Hyperthermia: No Family/Social History - Physician Review Nursing Documentation Reviewed: Yes Family/Social History: Unknown Family HX Smoking Status: Former Smoker Hx Alcohol Use: No Hx Substance Use: No Allergies/Home Meds Allergies/Adverse Reactions: Allergies No Known Allergies Allergy (Verified 06/08/17 12:19) Home Medications: Home Meds Medication Instructions Recorded Confirmed DULoxetine [Cymbalta] 30 mg PO DAILY 05/13/16 06/08/17 Levetiracetam [Keppra] 500 mg PO BID 06/08/17 06/08/17 Verapamil [Calan SR Tab] 120 mg PO DAILY 04/24/18 04/24/18 Review of Systems - Physician Review All systems were reviewed & negative as marked: Yes - Review of Systems Constitutional: Normal Eyes: Normal ENT: Normal Respiratory: Normal Cardiovascular: Normal Gastrointestinal: Stool Changes, Constipation, Appetite Changes. absent: Abdominal Pain, Diarrhea, Nausea, Vomiting, Hematochezia, Hematemesis, Anorexia Genitourinary Male: Normal Musculoskeletal: Normal. absent: Back Pain Skin: Normal Neurological: Normal Endocrine: Normal Hemo/Lymphatic: Normal Psychiatric: Normal Physical Exam Vital Signs Reviewed: Yes Vital Signs Temp Pulse Resp BP Pulse Ox 06/08/17 17:01 59 L 18 155/61 H 100 06/08/17 15:14 57 L 18 158/64 H 100 06/08/17 13:19 65 18 162/69 H 98 06/08/17 11:14 68 18 168/75 H 98 06/08/17 10:23 97.9 F 71 19 174/80 H 98 Temperature: Afebrile Blood Pressure: Hypertensive Pulse: Regular Respiratory Rate: Normal Appearance: Positive for: Well-Appearing, Non-Toxic, Comfortable Pain Distress: None Mental Status: Positive for: Alert and Oriented X 3 - Systems Exam Head: Present: Atraumatic, Normocephalic Pupils: Present: PERRL Extroacular Muscles: Present: EOMI Conjunctiva: Present: Normal Mouth: Present: Moist Mucous Membranes Neck: Present: Normal Range of Motion Respiratory/Chest: Present: Clear to Auscultation, Good Air Exchange. No: Respiratory Distress, Accessory Muscle Use Cardiovascular: Present: Regular Rate and Rhythm, Normal S1, S2. No: Murmurs Abdomen: Present: Normal Bowel Sounds. No: Tenderness, Distention, Peritoneal Signs, Rebound, Guarding, McBurney's Point Tender, Rovsing's Sign Present, Hernias Rectal: No: Occult Blood, Rectal Tenderness Genitourinary Male: Present: Normal External Genitalia Back: Present: Normal Inspection Upper Extremity: Present: Normal Inspection. No: Cyanosis, Edema Lower Extremity: Present: Normal Inspection. No: Edema Neurological: Present: GCS=15, CN II-XII Intact, Speech Normal Skin: Present: Warm, Dry, Normal Color. No: Rashes Psychiatric: Present: Alert, Oriented x 3, Normal Insight, Normal Concentration Medical Decision Making ED Course and Treatment: 06/08/17 14:23 Impression Pt is a 66 yr old male BIBA with past medical history of CVA and right side hemiplegia and dysphasia, presents to the ED for failure to have a bowel movement for the past 3-4 days. Negative Jeff's, neg Rebound, Rovsing, McBurneys, Plan labs, abdominal US assess and dispo Progress Note US revealed mild CBD dilatation of 8mm; pt remains asymptomatic; no abd pain labs drawn and waiting will give Mag-citrate for constipation pt resting in bed 06/08/17 15:57 Pt gave permission to contact next kin listed in file as Fanny Cortes; left message to call ED 06/08/17 17:38 Pt still unable to pass stool Dr. 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 Advised pt of discharge however not able to return home as per Next of Kin, Fanny; she informed that she could not hop picker pt until the morning; [facility] contacted for complete medication list Advised pt; medication for the evening dose reconciled and ordered; 06/08/17 22:30 Pt passed stool; normal in color - Lab Interpretations Lab Results: 06/08/17 12:55 06/08/17 14:35 Lab Results 06/08/17 14:35: Sodium 148, Potassium 4.0, Chloride 101, Carbon Dioxide 34 H, Anion Gap 18, BUN 19, Creatinine 1.2, Est GFR ( Amer) > 60, Est GFR (Non- Af Amer) > 60, Random Glucose 83, Calcium 10.3, Total Bilirubin 1.2, AST 78 H D , ALT 45, Alkaline Phosphatase 144 H D, Total Protein 9.5 H, Albumin 4.6, Globulin 4.9, Albumin/Globulin Ratio 0.9 L 06/08/17 12:55: WBC 6.4, RBC 5.56, Hgb 14.9 D, Hct 44.5, MCV 80.0, MCH 26.8, MCHC 33.5, RDW 15.4 H, Plt Count 155, MPV 10.8, Gran % 56.1, Lymph % (Auto) 29.8 , [place] % (Auto) 10.2 H, Eos % (Auto) 3.4, Baso % (Auto) 0.5, Gran # 3.61, Lymph # (Auto) 1.9, [place] # (Auto) 0.7 H, Eos # (Auto) 0.2, Baso # (Auto) 0.03 06/08/17 12:30: Urine Color Yellow, Urine Appearance Clear, Urine pH 6.0, Ur Specific [place] 1.025, Urine Protein 100 H, Urine Glucose (UA) Negative, Urine Ketones Negative, Urine Blood Trace-lysed H, Urine Nitrate Negative, Urine Bilirubin Negative, Urine Urobilinogen 0.2, Ur Leukocyte Esterase Negative, Urine RBC 2 - 5, Urine WBC 1 - 3, Ur Epithelial Cells 0 - 2, Urine Bacteria Many , Coarse Granular Casts Trace H - RAD Interpretation Radiology Orders: 06/08/17 12:56 ABDOMEN COMPLETE [US] Stat 06/08/17 18:21 ABD & PELVIS W/O PO OR IV CONT [CT] Stat - Medication Orders Current Medication Orders: Discontinued Medications Magnesium Citrate (Citrate Of Mag) 300 ml PO ONCE ONE Stop: 06/08/17 14:40 Last Admin: 06/08/17 15:57 Dose: 300 ml Disposition/Present on Arrival - Present on Arrival Any Indicators Present on Arrival: Yes History of DVT/PE: No History of Uncontrolled Diabetes: No Urinary Catheter: No History of Decub. Ulcer: No History Surgical Site Infection Following: None - Disposition Have Diagnosis and Disposition been Completed?: Yes Diagnosis: Constipation Disposition: HOME/ ROUTINE Disposition Time: 19:40 Patient Plan: Discharge Patient Problems: Current Active Problems Problem Status Onset Constipation Acute Condition: STABLE Discharge Instructions (ExitCare): Constipation, Adult (DC) Additional Instructions: Dario thank you for letting us take care of you today. Your provider was [ Provider Name Here]. You were treated for [Diagnosis Here]. The emergency medical care you received today was directed at your acute symptoms. If you were prescribed any medication, please fill it and take as directed. It may take several days for your symptoms to resolve. Return to the Emergency Department if your symptoms worsen, do not improve, or if you have any other problems. Please contact your doctor or call one of the physicians/clinics you have been referred to that are listed on the Patient Visit Information form that is included in your discharge packet. Bring any paperwork you were given at discharge with you along with any medications you are taking to your follow up visit. Our treatment cannot replace ongoing medical care by a primary care provider (PCP) outside of the emergency department. Thank you for allowing the [facility] team to be part of your care today. Prescriptions: Docusate Sodium [Colace] 100 mg PO Q12 5 Days #10 capsule Referrals: Ken Astudillo, [Primary Care Provider] - Follow up with primary Forms: [email or web address] (Portuguese)
[2017-06-08] MEDS ORDERED: Magnesium Citrate Oral SOL (300 ml) PO ONE (14:39)
[2017-06-08 14:55] LABS: ALB/GLOB RATIO 0.9 (1.1-1.8); ALBUMIN 4.6 g/dL (3.0-4.8); ALT/SGPT 45 U/L (7-56); AST/SGOT 78 U/L (17-59); BLOOD UREA NITROGEN 19 mg/dL (7-21); CALCIUM 10.3 mg/dL (8.4-10.5); GFR AFRICAN-AMERICAN > 60; GFR NON-AFRICAN AMERICAN > 60
[2017-06-08] MEDS ORDERED: Iohexol 350 MG/100 ML VIAL ONE (18:08)
--- NOTE | 2017-06-08 18:56 | CT ---
PROCEDURE: CT Abdomen and Pelvis without intravenous contrast HISTORY: constipation r/o obstruction; patria logan COMPARISON: June 08, 2017. Abdominal ultrasound TECHNIQUE: Unenhanced study. Neither oral nor intravenous contrast administered. Sensitivity and specificity for acute inflammatory processes limited by the absence of oral and intravenous contrast, in particular in this individual with a low BMI Radiation dose: Total exam DLP = 312.82 mGy-cm. This CT exam was performed using one or more of the following dose reduction techniques: Automated exposure control, adjustment of the mA and/or kV according to patient size, and/or use of iterative reconstruction technique. FINDINGS: LOWER THORAX: Unremarkable. LIVER: Unremarkable. No gross lesion or ductal dilatation. GALLBLADDER AND BILE DUCTS: Dilated gallbladder without focal abnormalities PANCREAS: Unremarkable. No gross lesion or ductal dilatation. SPLEEN: Unremarkable. ADRENALS: Unremarkable. No mass. KIDNEYS AND URETERS: Unremarkable. No hydronephrosis. No solid mass. VASCULATURE: Unremarkable. No aortic aneurysm. BOWEL: Constipation, fecal impaction. No evidence of bowel obstruction. APPENDIX: Unremarkable. Normal appendix. PERITONEUM: Unremarkable. No free fluid. No free air. LYMPH NODES: Unremarkable. No enlarged lymph nodes. BLADDER: Unremarkable. REPRODUCTIVE: Unremarkable. BONES: No acute fracture. OTHER FINDINGS: None. IMPRESSION: Constipation, fecal impaction without bowel obstruction. Limitations of the current examination:absence of oral and intravenous contrast
[2017-06-09 05:50] VITALS: RESP 16
[2017-06-09 10:42] VITALS: BP 106/69; PULSE 70; TEMP 98.3; O2SAT 98
== END 2017-06-09 10:42 | disposition home or self-care (01) ==
LOC: ED 10:10
DX: K59.00 Constipation, unspecified (principal)
CPT/HCPCS: 74176; 76700; 80053; 81001; 85025; 99285; Q9966

== ENCOUNTER 2017-12-13 10:32 | Emergency (ER) | payer MEDICARE, OTHER ==
[2017-12-13 10:32] VITALS: PULSE 104; BMI 18.8
[2017-12-13 10:41] VITALS: RESP 18
[2017-12-13 10:45] VITALS: BP 152/88; PULSE 81; TEMP 98.9; O2SAT 97
--- NOTE | 2017-12-13 11:55 | ED PDOC ---
Arrival/HPI - General Chief Complaint: Abnormal Skin Integrity Time Seen by Provider: 12/13/17 11:29 Historian: Patient - History of Present Illness Narrative History of Present Illness (Text): 12/13/17 12:03 A 67 year old male, whose past medical history includes right-side paralysis and right hand contraction, aphasia s/p CVA, hypertension, seizure disorder, and Atrial Fibrillation, sent by home health aide to the emergency department for skin abrasion. Patient appears to have a lower back skin abrasion. Patient denies any other complaints at this time. Past Medical History - Provider Review Nursing Documentation Reviewed: Yes - Infectious Disease Hx of Infectious Diseases: None - Tetanus Immunization Tetanus Immunization: Unknown - Cardiac Hx Cardiac Disorders: Yes Hx Hypertension: Yes - Pulmonary Hx Pneumonia: Yes - Neurological HX Cerebrovascular Accident: Yes - HEENT Hx HEENT Disorder: Yes (impairred speech) - Renal Hx Renal Disorder: No - Endocrine/Metabolic Hx Endocrine Disorders: No - Hematological/Oncological Hx Blood Disorders: No - Integumentary Other/Comment: healed sacral wound, mult discolorations ble - Musculoskeletal/Rheumatological Hx Falls: Yes - Gastrointestinal Hx Gastrointestinal Disorders: No - Genitourinary/Gynecological Hx Genitourinary Disorders: No - Psychiatric Hx Psychophysiologic Disorder: Yes Hx Depression: Yes Hx Substance Use: No - Surgical History Hx Abdominal Aortic Aneurysm Repair: No - Anesthesia Hx Anesthesia: Yes Hx Anesthesia Reactions: No Hx Malignant Hyperthermia: No Family/Social History - Physician Review Nursing Documentation Reviewed: Yes Family/Social History: No Known Family HX Smoking Status: Former Smoker Hx Alcohol Use: No Hx Substance Use: No Allergies/Home Meds Allergies/Adverse Reactions: Allergies No Known Allergies Allergy (Verified 06/08/17 12:19) Home Medications: Home Meds Medication Instructions Recorded Confirmed DULoxetine [Cymbalta] 30 mg PO DAILY 05/13/16 06/08/17 Levetiracetam [Keppra] 500 mg PO BID 06/08/17 06/08/17 Verapamil [Calan SR Tab] 120 mg PO DAILY 06/08/17 06/08/17 Review of Systems - Physician Review All systems were reviewed & negative as marked: Yes - Review of Systems Constitutional: absent: Fevers, Night Sweats Respiratory: absent: SOB, Cough Cardiovascular: absent: Chest Pain Gastrointestinal: absent: Abdominal Pain, Diarrhea, Nausea, Vomiting Skin: Other (abrasion) Physical Exam Vital Signs Reviewed: Yes Vital Signs Temp Pulse Resp BP Pulse Ox 12/13/17 10:44 98.9 F 81 18 152/88 H 97 12/13/17 10:38 98.6 F 82 18 136/84 99 Temperature: Afebrile Blood Pressure: Normal Pulse: Regular Respiratory Rate: Normal Appearance: Positive for: Well-Appearing, Non-Toxic, Comfortable Pain Distress: None Mental Status: Positive for: Alert and Oriented X 3 - Systems Exam Head: Present: Atraumatic, Normocephalic Pupils: Present: PERRL Extroacular Muscles: Present: EOMI Conjunctiva: Present: Normal Mouth: Present: Moist Mucous Membranes Neck: Present: Normal Range of Motion Respiratory/Chest: Present: Clear to Auscultation, Good Air Exchange. No: Respiratory Distress, Accessory Muscle Use Cardiovascular: Present: Regular Rate and Rhythm, Normal S1, S2. No: Murmurs Abdomen: No: Tenderness, Distention, Peritoneal Signs Back: Present: Normal Inspection Upper Extremity: Present: Normal Inspection. No: Cyanosis, Edema Lower Extremity: Present: Normal Inspection. No: Edema Neurological: No: Speech Normal (post CVA), Motor Func Grossly Intact (right- sided weakness post CVA, right hand is contracted) Skin: Present: Abrasion (smal 1 cm in diameter skin breakdown to lower back region) Psychiatric: Present: Alert, Oriented x 3, Normal Insight, Normal Concentration Medical Decision Making ED Course and Treatment: 12/13/17 11:58 Impression: 67 year old male with skin abrasion to back. Physical exam shows 1 cm (diameter) small skin breakdown to lower back region, no drainage, no increased warmth, and no streaking. Plan: -- EKG -- Cover Wound -- Reassess and disposition Progress Notes: 12/13/17 12:15 floor service worker spring Andres has been called for patient. 12/13/17 13:30 Home health aide agency has been contacted. Home health aide manager clinical will be sent to patient's home at 17:00. Patient to be turned every 2 hours by home health aide. Patient to be discharge prior to 17:00. - Scribe Statement The provider has reviewed the documentation as recorded by the Joshua Judd Provider Scribe Provider Scribe Attestation: All medical record entries made by the Scribe were at my direction and personally dictated by me. I have reviewed the chart and agree that the record accurately reflects my personal performance of the history, physical exam, medical decision making, and the department course for this patient. I have also personally directed, reviewed, and agree with the discharge instructions and disposition. Disposition/Present on Arrival - Present on Arrival Any Indicators Present on Arrival: No History of DVT/PE: No History of Uncontrolled Diabetes: No Urinary Catheter: No History of Decub. Ulcer: No History Surgical Site Infection Following: None - Disposition Have Diagnosis and Disposition been Completed?: Yes Diagnosis: Abrasion Disposition: HOME/ ROUTINE Disposition Time: 16:36 Patient Plan: Discharge Patient Problems: Current Active Problems Problem Status Onset Abrasion Acute Condition: STABLE Discharge Instructions (ExitCare): Skin Abrasions Additional Instructions: LEIDA MICHAUD, thank you for letting us take care of you today. Your provider was Mary Reyes MD and you were treated for LEFT SIDE PAIN. The emergency medical care you received today was directed at your acute symptoms. If you were prescribed any medication, please fill it and take as directed. It may take several days for your symptoms to resolve. Return to the Emergency Department if your symptoms worsen, do not improve, or if you have any other problems. Please contact your doctor or call one of the physicians/clinics you have been referred to that are listed on the Patient Visit Information form that is included in your discharge packet. Bring any paperwork you were given at discharge with you along with any medications you are taking to your follow up visit. Our treatment cannot replace ongoing medical care by a primary care provider outside of the emergency department. Thank you for allowing the [facility] team to be part of your care today. Referrals: Giovanny Mejia DO [Staff Provider] - Follow up with primary Forms: [employer] (Lithuanian)
--- NOTE | 2017-12-13 18:09 | CARD ---
APPROVED REPORT Date of service: 12/13/2017 EKG Measurement Heart [id number] <Conclusion> Normal sinus rhythm Left axis deviation Left ventricular hypertrophy T wave abnormality, consider lateral ischemia Abnormal ECG
== END 2017-12-13 16:42 | disposition home or self-care (01) ==
LOC: ED 10:32
DX: S30.810A Abrasion of lower back and pelvis, initial encounter (principal); X58.XXXA Exposure to other specified factors, initial encounter; Y92.9 Unspecified place or not applicable; I10 Essential (primary) hypertension; I48.91 Unspecified atrial fibrillation; Z87.891 Personal history of nicotine dependence

== ENCOUNTER 2018-05-29 14:32 | Emergency (ER) | payer MEDICARE, OTHER ==
[2018-05-29 14:32] VITALS: PULSE 104; BMI 18.8
[2018-05-29 14:51] VITALS: RESP 18; TEMP 98.2; O2SAT 95
--- NOTE | 2018-05-29 15:09 | ED PDOC ---
Arrival/HPI - General Chief Complaint: GI Problem Time Seen by Provider: 05/29/18 14:46 Historian: Patient - History of Present Illness Narrative History of Present Illness (Text): 05/29/18 15:17 A 67 year old male, whose past medical history includes CVA (slurred speech and right-side parastheisa s/p CVA), presents to the emergency department complaining of sacral pain. Patient was brought by EMS from home, where he was found alone and his home health clinical liaison was not present. Patient denies any falls, fever, chills, vomiting, abdominal pain, dysuria, or any other complaints at this time. Past Medical History - Provider Review Nursing Documentation Reviewed: Yes - Infectious Disease Hx of Infectious Diseases: None - Tetanus Immunization Tetanus Immunization: Unknown - Cardiac Hx Cardiac Disorders: Yes Hx Hypertension: Yes - Pulmonary Hx Pneumonia: Yes - Neurological HX Cerebrovascular Accident: Yes - HEENT Hx HEENT Disorder: Yes (impairred speech) - Renal Hx Renal Disorder: No - Endocrine/Metabolic Hx Endocrine Disorders: No - Hematological/Oncological Hx Blood Disorders: No - Integumentary Other/Comment: healed sacral wound, mult discolorations ble - Musculoskeletal/Rheumatological Hx Falls: Yes - Gastrointestinal Hx Gastrointestinal Disorders: No - Genitourinary/Gynecological Hx Genitourinary Disorders: No - Psychiatric Hx Psychophysiologic Disorder: Yes Hx Depression: Yes Hx Substance Use: No - Surgical History Hx Abdominal Aortic Aneurysm Repair: No - Anesthesia Hx Anesthesia: Yes Hx Anesthesia Reactions: No Hx Malignant Hyperthermia: No Family/Social History - Physician Review Nursing Documentation Reviewed: Yes Family/Social History: No Known Family HX Smoking Status: Former Smoker Hx Alcohol Use: No Hx Substance Use: No Allergies/Home Meds Allergies/Adverse Reactions: Allergies No Known Allergies Allergy (Verified 06/08/17 12:19) Home Medications: Home Meds Medication Instructions Recorded Confirmed DULoxetine [Cymbalta] 30 mg PO DAILY 05/13/16 06/08/17 Levetiracetam [Keppra] 500 mg PO BID 06/08/17 06/08/17 Verapamil [Calan SR Tab] 120 mg PO DAILY 06/08/17 06/08/17 Review of Systems - Physician Review All systems were reviewed & negative as marked: Yes - Review of Systems Gastrointestinal: absent: Abdominal Pain Genitourinary Male: Other (sacral pain). absent: Dysuria Physical Exam Vital Signs Reviewed: Yes Vital Signs Temp Pulse Resp BP Pulse Ox 05/29/18 14:46 98.2 F 73 18 148/80 95 Temperature: Afebrile Blood Pressure: Normal Pulse: Regular Respiratory Rate: Normal Appearance: Positive for: Well-Appearing, Non-Toxic, Comfortable Pain Distress: None Mental Status: Positive for: Alert and Oriented X 3 - Systems Exam Head: Present: Atraumatic, Normocephalic Pupils: Present: PERRL Extroacular Muscles: Present: EOMI Respiratory/Chest: Present: Clear to Auscultation, Good Air Exchange. No: Respiratory Distress Cardiovascular: Present: Regular Rate and Rhythm Abdomen: Present: Normal Bowel Sounds. No: Tenderness, Distention Neurological: Present: Other (slurred speech and right side paresis (chronic per patient)). No: Speech Normal Skin: Present: Warm, Dry, Normal Color, Other (Lower back/sacrum: (+) mild TTP, no erythema, skin is intact). No: Rashes Psychiatric: Present: Alert, Oriented x 3 Medical Decision Making ED Course and Treatment: 05/29/18 15:17 Impression: 67 year old male with sacral pain. Plan: -- Tylenol -- Reassess and disposition Progress Notes: 05/29/18 16:33 Patient sleeping comfortably at this time. Plan d/c home to f/u w/pcp. Patient agreeable w/POC. - Medication Orders Current Medication Orders: Discontinued Medications Acetaminophen (Tylenol 325mg Tab) 975 mg PO STAT STA Stop: 05/29/18 15:04 - Scribe Statement The provider has reviewed the documentation as recorded by the Joshua Judd Provider Scribe Attestation: All medical record entries made by the Scribbob were at my direction and personally dictated by me. I have reviewed the chart and agree that the record accurately reflects my personal performance of the history, physical exam, medical decision making, and the department course for this patient. I have also personally directed, reviewed, and agree with the discharge instructions and disposition. Disposition/Present on Arrival - Present on Arrival Any Indicators Present on Arrival: No History of DVT/PE: No History of Uncontrolled Diabetes: No Urinary Catheter: No History of Decub. Ulcer: No History Surgical Site Infection Following: None - Disposition Have Diagnosis and Disposition been Completed?: Yes Diagnosis: Musculoskeletal pain Disposition: HOME/ ROUTINE Disposition Time: 16:40 Patient Plan: Discharge Condition: IMPROVED Discharge Instructions (ExitCare): Muscle and Bone Pain (DC) Additional Instructions: LEIDA MICHAUD, thank you for letting us take care of you today. The emergency medical care you received today was directed at your acute symptoms. If you were prescribed any medication, please fill it and take as directed. It may take several days for your symptoms to resolve. Return to the Emergency Department if your symptoms worsen, do not improve, or if you have any other problems. Please contact your doctor in 1-2 days for a follow up visit. Bring any paperwork you were given at discharge with you along with any medications you are taking to your follow up visit. Our treatment cannot replace ongoing medical care by a primary care provider outside of the emergency department. Thank you for allowing the [facility] team to be part of your care today. Forms: [employer] (Lithuanian)
[2018-05-29 17:30] VITALS: BP 135/72; PULSE 65
== END 2018-05-29 17:15 | disposition home or self-care (01) ==
LOC: ED 14:32
DX: M79.18 Myalgia, other site (principal)

== ENCOUNTER 2018-07-01 09:49 | Emergency (ER) | payer MEDICARE ==
--- NOTE | 2018-07-01 10:04 | ED PDOC ---
Arrival/HPI - General Historian: Patient, EMS - History of Present Illness Narrative History of Present Illness (Text): 07/01/18 10:02 Patient is a 68 yo male with h/o CVA who presents with constipation. Due to patient's CVA, his speech is very slurred. He is able to answer yes/no questions. EMS states that patient has a homemaker, unsure if he lives with anyone else. Patient has not had a BM in 5 days. Patient indicates that he is eating and drinking. He denies nausea and vomiting. He has mild abdominal pain. Denies chest pain. Homemaker provided a medication list that does include a narcotic. Time/Duration: < week <Liza Muniz - Last Filed: 07/01/18 13:16> <Usama Chaney - Last Filed: 07/01/18 18:38> - General Chief Complaint: GI Problem Time Seen by Provider: 07/01/18 09:54 Past Medical History - Provider Review Nursing Documentation Reviewed: Yes <Liza Muniz - Last Filed: 07/01/18 13:16> Family/Social History - Physician Review Nursing Documentation Reviewed: Yes Family/Social History: Unknown Family HX <Liza Muniz - Last Filed: 07/01/18 13:16> Allergies/Home Meds <Liza Muniz - Last Filed: 07/01/18 13:16> <Usama Chaney - Last Filed: 07/01/18 18:38> Allergies/Adverse Reactions: Allergies No Known Allergies Allergy (Verified 07/01/18 10:18) Review of Systems - Review of Systems Systems not reviewed;Unavailable: Language Barrier (slurred speech) Constitutional: absent: Fevers Respiratory: absent: SOB, Cough Cardiovascular: absent: Chest Pain Gastrointestinal: Abdominal Pain, Constipation. absent: Diarrhea, Nausea, Vomiting Neurological: absent: Headache <Liza Muniz - Last Filed: 07/01/18 13:16> Physical Exam Temperature: Afebrile Blood Pressure: Normal Pulse: Regular Respiratory Rate: Normal Appearance: Positive for: Non-Toxic, Comfortable Pain Distress: None Mental Status: Positive for: Alert and Oriented X 3 - Systems Exam Head: Present: Atraumatic, Normocephalic Pupils: Present: PERRL Extroacular Muscles: Present: EOMI Conjunctiva: Present: Normal Mouth: Present: Dry Respiratory/Chest: Present: Clear to Auscultation, Good Air Exchange Cardiovascular: Present: Regular Rate and Rhythm, Normal S1, S2 Abdomen: Present: Tenderness (mild diffuse), Normal Bowel Sounds. No: Distention, Peritoneal Signs, Rebound Neurological: Present: GCS=15. No: Speech Normal (slurred) Skin: Present: Warm, Dry, Normal Color Psychiatric: Present: Alert, Oriented x 3, Normal Concentration <Liza Muniz - Last Filed: 07/01/18 13:16> Vital Signs Temp Pulse Resp BP Pulse Ox 07/01/18 14:00 62 16 134/88 95 07/01/18 10:18 97.9 F 69 16 114/71 98 <Usama Chaney - Last Filed: 07/01/18 18:38> Medical Decision Making ED Course and Treatment: 07/01/18 10:34 CBC, CMP, Mg, Phos Lipase AXR 07/01/18 11:15 Patient resting comfortably. 07/01/18 11:33 AXR shows significant stool. Will give fleet enema. 07/01/18 12:50 Completed enema. Only 2 small round BMs. Denies abdominal pain. 07/01/18 13:16 Will give Miralax and discharge. No obstruction on AXR. Re-evaluation Time: 13:16 Reassessment Condition: Re-examined, Improved - Lab Interpretations I have reviewed the lab results: Yes Interpretation: No clinic. lab abnormalty - RAD Interpretation Radiology Orders: AXR - Medication Orders Current Medication Orders: 07/01/18 11:34 Fleet enema <Liza Muniz - Last Filed: 07/01/18 13:16> ED Course and Treatment: 07/01/18 14:11 A 68 year old male presents to the emergency department for further evaluation of 5 day duration constipation. In agreement with resident note, which includes further HPI details. Patient was seen and evaluated with resident, came up with plan and treatment together. - Lab Interpretations Lab Results: Total Bilirubin 1.1 mg/dL (0.2-1.3) 07/01/18 10:23 AST 69 U/L (17-59) H 07/01/18 10:23 ALT 44 U/L (7-56) 07/01/18 10:23 Alkaline Phosphatase 129 U/L (38-126) H 07/01/18 10:23 Total Protein 8.9 g/dL (5.8-8.3) H 07/01/18 10:23 Albumin 4.2 g/dL (3.0-4.8) 07/01/18 10:23 Globulin 4.7 gm/dL 07/01/18 10:23 Albumin/Globulin Ratio 0.9 (1.1-1.8) L 07/01/18 10:23 Lipase 89 U/L (23-300) 07/01/18 10:23 - RAD Interpretation Radiology Orders: 07/01/18 10:40 ABDOMEN (FLAT PLATE) 1VIEW [RAD] Stat - Medication Orders Current Medication Orders: Discontinued Medications Polyethylene Glycol (Miralax) 17 gm PO STAT STA Stop: 07/01/18 13:16 Sodium Phosphate (Fleet Enema) 135 ml RC STAT STA Stop: 07/01/18 11:31 Last Admin: 07/01/18 11:48 Dose: 135 ml <Usama Chaney - Last Filed: 07/01/18 18:38> - PA / [employer] / Resident Statement MD/ has reviewed & agrees with the documentation as recorded. MD/DO has examined the patient and agrees with the treatment plan. - Scribe Statement The provider has reviewed the documentation as recorded by the Joshua Rodriguez Provider Scribe Attestation: All medical record entries made by the Scribe were at my direction and personally dictated by me. I have reviewed the chart and agree that the record accurately reflects my personal performance of the history, physical exam, medical decision making, and the department course for this patient. I have also personally directed, reviewed, and agree with the discharge instructions and disposition. <Usama Chaney - Last Filed: 07/01/18 18:38> Disposition/Present on Arrival - Present on Arrival Any Indicators Present on Arrival: No History of DVT/PE: No History of Uncontrolled Diabetes: No Urinary Catheter: No History of Decub. Ulcer: No History Surgical Site Infection Following: None - Disposition Have Diagnosis and Disposition been Completed?: Yes Disposition Time: 13:17 Patient Plan: Discharge <Liza Muniz - Last Filed: 07/01/18 13:16> <Usama Chaney Filed: 07/01/18 18:38> - Disposition Diagnosis: Constipation Disposition: HOME/ ROUTINE Condition: GOOD Discharge Instructions (ExitCare): Constipation, Adult (DC) Additional Instructions: Follow-up with your primary care provider. Take Miralax daily. You can purchase this [id number]. Prescriptions: Polyethylene Glycol 3350 [Miralax] 17 g PO DAILY #5 ml Forms: [employer] (French)
[2018-07-01 10:18] VITALS: BMI 18.1
[2018-07-01 10:21] VITALS: RESP 16; TEMP 97.9
[2018-07-01 10:58] LABS: BASO # 0.02 K/mm3 (0.0-2.0); BASO % 0.4 % (0.0-3.0); EOS # 0.3 (0.0-0.7); EOS % 6.3 % (1.5-5.0); HEMOGLOBIN 13.8 g/dL (14.0-18.0); LYMPH # 2.5 (1.2-3.4); LYMPH % 46.1 % (22.0-35.0); MEAN CELL VOLUME 81.3 fl (80.0-105.0); MEAN PLATELET VOLUME 11.4 fl (7.0-11.0); MONO # 0.6 (0.1-0.6); MONO % 11.4 % (1.0-6.0); RBC 5.3 10^6/uL (3.5-6.1); WHITE BLOOD COUNT 5.4 10^3/uL (4.5-11.0)
[2018-07-01 11:04] LABS: CALCIUM 9.5 mg/dL (8.4-10.5)
[2018-07-01 11:12] LABS: ALB/GLOB RATIO 0.9 (1.1-1.8); ALBUMIN 4.2 g/dL (3.0-4.8)
--- NOTE | 2018-07-01 12:36 | RAD ---
Date of service: 07/01/2018 HISTORY: constipation COMPARISON: None available. TECHNIQUE: Two view obtained. FINDINGS: BOWEL: Normal. No obstruction. No free air. BONES: Normal. OTHER FINDINGS: None. IMPRESSION: No active disease.
[2018-07-01] MEDS ORDERED: POLYETHYLENE GLYCOL 3350 17 GM/Dose PACKET PO STA (13:15)
[2018-07-01 14:01] VITALS: BP 134/88; PULSE 62; O2SAT 95
== END 2018-07-01 15:55 | disposition home or self-care (01) ==
LOC: ED 09:49 → MERGE 09:49 → ED 15:55
DX: K59.00 Constipation, unspecified (principal); Z86.73 Personal history of transient ischemic attack (TIA), and cerebral infarction without residual deficits